=== PATIENT | male | born 1955 | race Caucasian/White ===

== ENCOUNTER 2022-10-17 07:28 | Outpatient (OUT) | payer MEDICARE, OTHER, SELFPAY ==
[2022-10-17 08:09] LABS: Basophils Percent Auto 0.3 % (0.2-2.0); Eosinophils Percent Auto 1.1 % (0.9-7.0); Hematocrit 36.6 % (42.0-54.0); Hemoglobin 12.5 g/dL (14.0-18.0); Immature Granulocytes Abs Auto 0.01 10^3/uL (0.00-0.03); Immature Granulocytes Pct Auto 0.3 % (0.0-0.5); Lymphocytes Percent Auto 26.6 % (20.5-60.0); Mean Corpuscular HGB Conc 34.2 g/dL (29.9-35.2); Mean Corpuscular Hemoglobin 31.6 pg (25.9-34.0); Mean Corpuscular Volume 92.4 fL (80.0-94.0); Mean Platelet Volume 10.7 fL (9.5-13.5); Monocytes Absolute Auto 0.2 10^3/uL (0.3-0.8); Monocytes Percent Auto 6.6 % (1.7-12.0); Neutrophils Absolute Auto 2.4 10^3/uL (1.4-6.5); Neutrophils Percent Auto 65.1 % (43.0-75.0); Nucleated Red Blood Cells 0; Platelet Count 126 10^3/uL (150-450); Red Blood Count 3.96 10^6/uL (4.70-6.10); Red Cell Distribution Width 13.2 % (11.0-15.0); White Blood Count 3.6 10^3/uL (4.0-11.0)
[2022-10-17 09:09] LABS: Erythrocyte Sedimentation Rate 10 mm/hr (<=20)
[2022-10-17 09:42] LABS: Alanine Aminotransferase 22 U/L (16-63); Albumin Globulin Ratio 1.2; Albumin Level 3.8 g/dL (3.4-5.0); Alkaline Phosphatase 39 U/L (46-116); Anion Gap 11.6; Aspartate Amino Transferase 18 U/L (15-37); BUN Creatinine Ratio 19.3; Bilirubin Total 0.7 mg/dL (0.2-1.0); Calcium 8.8 mg/dL (8.5-10.1); Carbon Dioxide 29.6 mmol/L (21.0-32.0); Chloride 100 mmol/L (98-107); Estimated GFR (African America >60 (>=60); Estimated GFR (Non-African Ame >60 (>=60); Globulin 3.3 g/dL; Glucose 134 mg/dL (74-106); Potassium 4.2 mmol/L (3.5-5.1); Sodium 137 mmol/L (136-145); Total Protein 7.1 g/dL (6.4-8.2)
== END 2022-10-17 07:29 ==
LOC: LAB 07:33
PROVIDERS: PCP Family Medicine; Visit Provider Internal Medicine Rheumatology
DX: M19.90 Unspecified osteoarthritis, unspecified site (principal); Z79.899 Other long term (current) drug therapy; M06.9 Rheumatoid arthritis, unspecified
CPT/HCPCS: 36415; 80053; 85025; 85652

== ENCOUNTER 2022-10-28 07:23 | Outpatient (OUT) | payer MEDICARE, OTHER, SELFPAY ==
[2022-10-29 04:07] LABS: Testosterone 377 ng/dL (264-916)
== END 2022-10-28 07:24 ==
LOC: LAB 07:26
PROVIDERS: PCP Family Medicine; Visit Provider Urology
DX: E29.1 Testicular hypofunction (principal)
CPT/HCPCS: 36415; 84403

== ENCOUNTER 2023-04-27 07:12 | Outpatient (OUT) | payer MEDICARE, OTHER, SELFPAY ==
[2023-04-28 09:11] LABS: Testosterone 330 ng/dL (264-916)
== END 2023-04-27 07:13 | disposition home or self-care (01) ==
LOC: LAB 07:15
PROVIDERS: PCP Family Medicine; Visit Provider Urology
DX: N40.1 Benign prostatic hyperplasia with lower urinary tract symptoms (principal); E29.1 Testicular hypofunction; N52.9 Male erectile dysfunction, unspecified; R81 Glycosuria; M06.9 Rheumatoid arthritis, unspecified; M19.90 Unspecified osteoarthritis, unspecified site
CPT/HCPCS: 36415; 84403

== ENCOUNTER 2023-06-19 07:02 | Outpatient (OUT) | payer MEDICARE, OTHER, SELFPAY ==
--- OUTSIDE RECORDS SUMMARY | 2023-06-19 07:07 | XMS_ITS | CCD ---
Author Name Unknown Address [address] [place] [address] Organization [facility] Care Team Providers Care Stationary Engineer Name Role Phone EILEEN PURVIS TENNILLE Unavailable Unavai JOSH Farrar Unavailable Unavailable Josh Ospina Unavailable Unavailable Unavailable Unavailable Unavailable Baljinder, Dr. Pattie Sanz Attending [facility] Unavailab le Baljinder, Dr. Pattie Sanz Referring Shantel vailable Josh Ospina Primary Care Unavailab clau Gale, Dr. Pattie Sanz Referring Shantel vailable Baljinder, Dr. Pattie Sanz Attending Shantel vailable Aryan Garcia Unavailable DO Josh Ospina Primary Care Provider [phone] MD Aryan Garcia Attending Provider DR JAYSON MOHAN Attending Unavailable FURLOGREGG, DR JOSH Sanchez Primary Care Unavailable FURLONG, DR JOSH Sanchez Consulting Unavailable DR JAYSON MOHAN Admitting Unavailable DR JAYSON MOHAN Consulting Unavailable FURLONG, DR JOSH Sanchez Primary Care Unavailable FURLONG, DR JOSH Sanchez Consulting Unavailable FURLONG, DR JOSH Sanchez Attending Unavailable FURLONG, DR JOSH Sanchez Admitting Unavailable FURLONG, DR JOSH Sanchez Primary Care Unavailable FURLONG, DR JOSH Sanchez Consulting Unavailable FURLONG, DR JOSH Sanchez Attending Unavailable FURLONG, DR JOSH Sanchez Admitting Unavailable FURLONG, DR JOSH Sanchez Primary Care Unavailable MISC, DR GIVENS Consulting Unavailable MISC, DR GIVENS Attending Unavailable MISC, DR GIVENS Admitting Unavailable BAILEY, DR PRASAD Attending Unavailable BAILEY, DR PRASAD Admitting Unavailable ZIEBER, DR EILEEN Rizo Consulting Unavailable FURLONG, DR JOSH Sanchez Primary Care Unavailable BAILEY, DR PRASAD Consulting Unavailable FURLONG, DR JOSH Sanchez Admitting Unavailable FURLONG, DR JOSH Sanchez Primary Care Unavailable FURLONG, DR JOSH Sanchez Attending Unavailable BAILEY, DR PRASAD Attending Unavailable BAILEY, DR PRASAD Admitting Unavailable FURLONG, DR JOSH Sanchez Primary Care Unavailable FURLONG, DR JOSH Sanchez Consulting Unavailable BAILEY, DR PRASAD Consulting Unavailable FURLONG, DR JOSH Sanchez Primary Care Unavailable MOHAN, DR CARUSO Consulting Unavailable MOHAN, DR CARUSO Attending Unavailable MOHAN, DR CARUSO Admitting Unavailable BAILEY, DR PRASAD Consulting Unavailable MOHAN, Jayson Rizo Attending Unavailable MOHAN, Jayson Rizo Attending Unavailable MOHAN, Jayson Rizo Attending Unavailable Gale, Dr. Pattie Sanz Attending Shantel vailable Furlong, Dr. Josh Aguilera Primary Care Unava ilable Bailey, Shanice Admitting Unavailable Bailey, Shanice Attending Unavailable Furlong, Josh Primary Care Unavailable Aryan Garcia Attending Unavailable Furlong, Josh Primary Care Unavailable Aryan Garcia Admitting Unavailable Furlong Josh GONGORA Primary Care Provider Allergies Allergy Classification Reported Allergen(s) Allergy Type Date of Onset Reaction(s) Facility (6 sources) Ticagrelor; Translations: [Brilinta TABS] Drug Allergy 4 [facility] (1 source) Bee/Wasp/Ant venom; Translations: [Bee Stings] Propensity to adverse reactions (disorder) [facility] (1 source) No Known Medication Allergies; Translations: [No Known Medication Allergies] Propensity to adverse reactions (disorder) [facility] Medications Current Medications Medication Drug Class(es) Dates Sig (Normalized) Sig (Original) aspirin 81 mg delayed release oral tablet (9 sources) Platelet Aggregation Inhibitor, Nonsteroidal Anti-inflammatory Drug Start: 04-08-2019 End: 06-18-2023 take 1 tablet by mouth once daily Aspirin (Aspir-81) 81 mg Tablet,Delayed Release (Dr/Ec) Active 1 TAB PO Daily April 08, 2019 12:00am Start: 04-08-2019 End: 04-08-2019 take 325 mg by mouth once daily Aspirin Discontinued 325 MG PO Daily April 08, 2019 12:00am April 08, 2019 11:19am Aspirin Active clopidogrel 75 mg oral tablet (8 sources) P2Y12 Platelet Inhibitor Start: 04-08-2019 take 1 tablet by mouth once daily clopidogrel (Plavix) 75 mg tablet Take 1 tablet (75 mg) by mouth once daily. 0 10/17/2019 Active Clopidogrel Bisu lfate Active empagliflozin 10 mg oral tablet (6 sources) Sodium-Glucose Cotransporter 2 Inhibitor Start: 06-15-2020 End: 06-18-2023 take 1 tablet by mouth once daily empagliflozin (Jardiance) 10 mg Take 1 tablet (10 mg) by mouth once daily. 0 06/15/2020 06/18/2023 Discontinued (Therapy completed) gabapentin 300 mg oral capsule (8 sources) Anti-epileptic Agent Start: 04-08-2019 take 1 capsule by mouth once daily at bedtime gabapentin (Neurontin) 300 mg capsule Take 1 capsule (300 mg) by mouth once daily at bedtime. 0 05/27/2020 Active Gabapentin Activ e hydroxychloroquine sulfate 200 mg oral tablet (7 sources) Antimalarial, Antirheumatic Agent Start: 04-08-2019 take 1 tablet by mouth twice daily hydroxychloroquine (Plaquenil) 200 mg tablet Take 1 tablet (200 mg) by mouth 2 times a day. 0 10/03/2019 Active metFORMIN hydrochloride 500 mg oral tablet (8 sources) Biguanide Start: 03-13-2020 take 2 tablets by mouth twice daily metFORMIN (Glucophage) 500 mg tablet Take 2 tablets (1,000 mg) by mouth 2 times a day. 0 03/13/2020 Active Start: 04-08-2019 take 500 mg by mouth twice naldo ly Metformin Active 500 MG PO Twice daily April 08, 2019 12:00am Metformin Active ramipril 10 mg oral capsule (8 sources) Angiotensin Converting Enzyme Inhibitor Start: 04-08-2019 take 1 capsule by mouth once daily ramipril (Altace) 10 mg capsule Take 1 capsule (10 mg) by mouth once daily. 0 08/11/2019 Active Ramipril Active rosuvastatin calcium 10 mg oral tablet (9 sources) HMG-CoA Reductase Inhibitor Start: 04-08-2019 take 1 tablet by mouth once daily at bedtime rosuvastatin (Crestor) 10 mg tablet Take 1 tablet (10 mg) by mouth once daily at bedtime. 0 10/19/2019 Active Rosuvastatin Sabino cium Active Crestor Not-Taki ng sildenafil 20 mg oral tablet (6 sources) Phosphodiesterase 5 Inhibitor End: 06-18-2023 sildenafil (Revatio) 20 mg tablet Take 1 tablet (20 mg) by mouth if needed. 0 06/18/2023 Discontinued (Therapy completed) Sildenafil Citra te TABS as needed Quantity: 0 Refills: 0 Ordered: 23-Apr-2021 DO Active SITagliptin 100 mg oral tablet (8 sources) Dipeptidyl Peptidase 4 Inhibitor Start: 04-08-2019 take 1 tablet by mouth once daily SITagliptin phosphate (Januvia) 100 mg tablet Take 1 tablet (100 mg) by mouth once daily. 0 03/26/2020 Active Januvia Active tadalafil 5 mg oral tablet (2 sources) Phosphodiesterase 5 Inhibitor Start: 04-08-2019 take 1 tablet by mouth once daily Tadalafil (Cialis) 5 mg Tablet Active 5 MG PO Daily April 08, 2019 12:00am Cialis Not-Takin g tamsulosin hydrochloride 0.4 mg oral capsule (6 sources) alpha-Adrenergic Fani Start: 07-10-2020 take 1 capsule by mouth once daily tamsulosin (Flomax) 0.4 mg 24 hr capsule Take 1 capsule (0.4 mg) by mouth once daily. 0 07/10/2020 Active 60 actuat testosterone 20.25 mg/actuat topical gel (8 sources) Androgen Start: 08-17-2020 testosterone 20.25 mg/1.25 gram (1.62 %) gel in metered-dose pump Place on the skin. 0 08/17/2020 Active Start: 08-17-2020 Testosterone 2 0.25 MG/ACT (1.62%) Transdermal Gel Quantity: 75 Refills: 0 Ordered: 17-Aug-2020 DO Start : 17-Aug-2020 Active Start: 04-08-2019 End: 04-08-2019 Testosterone Cypionate (Depo -Testosterone) 100 mg/mL Oil Discontinued 100 MG IM EVERY 4 WEEKS April 08, 2019 12:00am April 08, 2019 11:20am Testosterone Act fide verapamil hydrochloride 240 mg extended release oral tablet (8 sources) Calcium Channel Fani Start: 04-08-2019 End: 06-18-2023 take 1 tablet by mouth once daily verapamil SR (Calan-SR) 240 mg ER tablet Take 1 tablet (240 mg) by mouth once daily. 0 11/10/2019 06/18/2023 Discontinued (Therapy completed) Verapamil HCl Ac tive Completed/Discontinued Medications Medication Drug Class(es) Dates Sig (Normalized) Sig (Original) glimepiride 2 mg oral tablet (2 sources) Sulfonylurea Start: 04-08-2019 End: 04-08-2019 take 2 mg by mouth once daily in the morning Glimepiride Discontinued 2 MG PO Every morning April 08, 2019 12:00am April 08, 2019 11:19am Glimepiride Acti ve Suprep Bowel Prep . (1 source) Start: 03-29-2014 Suprep Bowel P rep . as directed Orally as directed for 1 dose(s) Mar, Not-Taking 24 hr trandolapril 4 mg / verapamil hydrochloride 240 mg extended release oral tablet (2 sources) Angiotensin Converting Enzyme Inhibitor, Calcium Channel Fani Start: 04-08-2019 End: 04-08-2019 take 1 tablet by mouth once daily Trandolapril-Verap malou (Tarka) 4-240 mg Tablet, Ir - Er, Biphasic 24hr Discontinued 1 TAB PO Daily April 08, 2019 12:00am April 08, 2019 11:20am Tarka Not-Taking Problems Active Problems Problem Classification Problem Date Documented Date Episodic/Chronic Coronary atherosclerosis and other heart disease (7 sources) Arteriosclerotic vascular disease; Translations: [Cardiovascular disease, unspecified] Onset: 05-26-2023 06-18-2023 Chronic Diabetes mellitus with complications (1 source) Type 2 diabetes mellitus with diabetic neuropathy, unspecified; Translations: [TYPE 2 DM W/DIABETIC NEUROPATHY UNS] Onset: 01-12-2022 Chronic Diabetes mellitus without complication (7 sources) Diabetes mellitus; Translations: [Diabetes mellitus without mention of complication, type II or unspecified type, not stated as uncontrolled] Onset: 05-26-2023 06-18-2023 Chronic Disorders of lipid metabolism (8 sources) Hyperlipidemia; Translations: [Other and unspecified hyperlipidemia] Onset: 07-16-2021 4 Chronic Essential hypertension (10 sources) Essential hypertension; Translations: [Unspecified essential hypertension] Onset: 07-16-2021 Chronic Hyperplasia of prostate (5 sources) Benign prostatic hyperplasia with lower urinary tract symptoms; Translations: [BENIGN PROSTATIC HYPERPLASIA W/LUTS] Onset: 10-29-2021 Chronic Osteoarthritis (1 source) Primary generalized (osteo)arthritis; Translations: [PRIMARY GENERALIZED OSTEOARTHRITIS] Onset: 07-16-2021 Chronic Other and unspecified benign neoplasm (1 source) Tubular adenoma of colon; Translations: [Tubular adenoma of colon] Episodic Other circulatory disease (2 sources) Femoral bruit; Translations: [Other symptoms involving cardiovascular system] Onset: 05-26-2023 05-26-2023 Episodic Other endocrine disorders (5 sources) Testicular hypofunction; Translations: [TESTICULAR HYPOFUNCTION] Onset: 10-26-2021 Chronic Other male genital disorders (1 source) Male erectile dysfunction, unspecified; Translations: [MALE ERECTILE DYSFUNCTION UNS] Onset: 10-29-2021 Chronic Other nutritional; endocrine; and metabolic disorders (5 sources) Overweight in adulthood with body mass index of 25 or more but less than 30; Translations: [Overweight] Episodic Other nutritional; endocrine; and metabolic disorders (1 source) Body mass index (BMI) 29.0-29.9, adult Episodic Other nutritional; endocrine; and metabolic disorders (1 source) Overweight; Translations: [Overweight] 06-18-2023 Episodic Peripheral and visceral atherosclerosis (10 sources) Intermittent claudication; Translations: [Peripheral vascular disease, unspecified] Onset: 05-26-2023 06-18-2023 Chronic Comment on above: Status post SFA clinton oplasty 2008; Residual codes; unclassified (6 sources) Sleep apnea; Translations: [Unspecified sleep apnea] Onset: 05-26-2023 05-26-2023 Chronic Residual codes; unclassified (2 sources) Obstructive sleep apnea syndrome; Translations: [Obstructive sleep apnea (adult) (pediatric)] Chronic Residual codes; unclassified (1 source) Obstructive sleep apnea (adult) (pediatric) Chronic Residual codes; unclassified (1 source) Obstructive sleep apnea (adult)(pediatric); Translations: [Obstructive sleep apnea (adult) (pediatric)] Onset: 03-27-2022 Chronic Residual codes; unclassified (1 source) Family history of colorectal cancer; Translations: [Family hx of colorectal cancer] Episodic Rheumatoid arthritis and related disease (5 sources) Rheumatoid arthritis 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; Translations: [Rheumatoid arthritis, unspecified] Onset: 07-13-2021 Chronic Screening and history of mental health and substance abuse codes (7 sources) Ex-smoker; Translations: [Personal history of tobacco use] Onset: 06-18-2023 06-18-2023 Episodic Past or Other Problems Problem Classification Problem Date Documented Da te Episodic/Chronic Other aftercare (1 source) 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; Translations: [OTH SUTURE GAUGER CURRENT DRUG THERAPY] Onset: 07-16-2021 Episodic Other circulatory disease (2 sources) History of claudication; Translations: [Personal history of unspecified circulatory disease] Resolved: 02-04-2022 Episodic Other connective tissue disease (1 source) Impingement syndrome of right shoulder; Translations: [Impingement syndrome of right shoulder] Onset: 07-06-2017 Episodic Other non-traumatic joint disorders (4 sources) Pain in right knee; Translations: [PAIN IN RIGHT KNEE] Onset: 07-24-2021 Episodic Other screening for suspected conditions (not mental disorders or infectious disease) (5 sources) History of adenomatous polyp of colon; Translations: [Encounter for screening for malignant neoplasm of colon] Onset: 01-10-2022 04-08-2019 Episodic Unclassified (1 source) Onset: 06-18-2023 06-18-2023 Results Test Name Value Interpretation Reference Range Facility Complete Blood Count Auto Di ffon 03-17-2023 Basophils (Bld) [#/Vol] 0.0 10*3/uL Normal 0.0-0.[address] [facility] Comment on above: Performed By: #### C MP, ESR, CBC #### [facility] [address] Basophils/100 WBC (Bld) 0.3 % Normal . [facility] Comment on above: Performed By: #### C MP, ESR, CBC #### [facility] [address] Eosinophils (Bld) [#/Vol] 0.1 10*3/uL Normal 0.0-0.[address] [facility] Comment on above: Performed By: #### C MP, ESR, CBC #### [facility] [address] [place] [address] [place] Eosinophils/100 WBC (Bld) 1.2 % Normal . [facility] Comment on above: Performed By: #### C MP, ESR, CBC #### [facility] [address] Erythrocyte distribution width (RBC) [Ratio] 14.1 % Normal 12.0-14.[address] [facility] Comment on above: Performed By: #### C MP, ESR, CBC #### [address] Hematocrit (Bld) [Volume fraction] 38.4 % Low 38.8-50.[address] [facility] Comment on above: Performed By: #### C MP, ESR, CBC #### [address] Hemoglobin (Bld) [Mass/Vol] 13.1 g/dL Normal 13.0-17.[address] [facility] Comment on above: Performed By: #### C MP, ESR, CBC #### [address] Lymphocytes (Bld) [#/Vol] 1.0 10*3/uL Normal 1.00-4.[address] [facility] Comment on above: Performed By: #### C MP, ESR, CBC #### [place] [address] [place] Lymphocytes/100 WBC (Bld) 22.5 % Normal . [facility] Comment on above: Performed By: #### C MP, ESR, CBC #### [address] MCH (RBC) [Entitic mass] 31.1 pg Normal 27.5-35.[address] [facility] Comment on above: Performed By: #### C MP, ESR, CBC #### [address] MCV (RBC) [Entitic vol] 91.2 fL Normal 83.5-[address] [facility] Comment on above: Performed By: #### C MP, ESR, CBC #### [facility] [address] Mean Corpuscular HGB Conc 34.1 g/dL Normal 32.5-35.[address] [facility] Comment on above: Performed By: #### C MP, ESR, CBC #### [facility] [address] Monocytes (Bld) [#/Vol] 0.3 10*3/uL Normal 0.0-0.[address] [facility] Comment on above: Performed By: #### C MP, ESR, CBC #### [address] Monocytes/100 WBC (Bld) 7.3 % Normal . [facility] Comment on above: Performed By: #### C MP, ESR, CBC #### [address] Neutrophils (Bld) [#/Vol] 3.1 10*3/uL Normal 1.8-7.[address] [facility] Comment on above: Performed By: #### C MP, ESR, CBC #### [address] Neutrophils/100 WBC (Bld) 68.7 % Normal . [facility] Comment on above: Performed By: #### C MP, ESR, CBC #### [address] NRBC% 0.0 /100{WBC} Normal 0-0.[address] [facility] Comment on above: Performed By: #### C MP, ESR, CBC #### [address] Platelet mean volume (Bld) [Entitic vol] 9.7 fL Normal 6.6-10.[address] [facility] Comment on above: Performed By: #### C MP, ESR, CBC #### [address] Platelets (Bld) [#/Vol] 144 10*3/uL Low 150-[address] [facility] Comment on above: Performed By: #### C MP, ESR, CBC #### [address] RBC (Bld) [#/Vol] 4.21 10*6/uL Normal 3.90-5.60 [facility] Comment on above: Performed By: #### C MP, ESR, CBC #### [address] WBC (Bld) [#/Vol] 4.5 10*3/uL Normal 4.1-10.5 [facility] Comment on above: Performed By: #### C MP, ESR, CBC #### [address] Comprehensive Metabolic Pane jerrell 03-17-2023 Albumin [Mass/Vol] 4.5 g/dL Normal 3.5-5.7 [facility] Comment on above: Performed By: #### C MP, ESR, CBC #### [address] Albumin/Globulin [Mass ratio] 2.0 {ratio} Normal [facility] Comment on above: Performed By: #### C MP, ESR, CBC #### [address] ALP [Catalytic activity/Vol] 43 U/L Normal 34-[address] [facility] Comment on above: Result Comment: PERF ORMED BY: [place] [address] PATHOLOGIST CLOCK AND WATCH ASSEMBLER BALDEMAR MCKINLEY M.D. Performed By: #### C MP, ESR, CBC #### [address] ALT [Catalytic activity/Vol] 14 U/L Normal 7-[address] [facility] Comment on above: Performed By: #### C MP, ESR, CBC #### [address] Anion gap [Moles/Vol] 10.2 mmol/L Normal 6.0-15.[address] [facility] Comment on above: Performed By: #### C MP, ESR, CBC #### [facility] [address] AST [Catalytic activity/Vol] 13 U/L Normal 13-[address] [facility] Comment on above: Performed By: #### C MP, ESR, CBC #### [facility] [address] Bilirubin [Mass/Vol] 0.6 mg/dL Normal 0.3-1.[address] [facility] Comment on above: Performed By: #### C MP, ESR, CBC #### [facility] [address] Calcium [Mass/Vol] 9.5 mg/dL Normal 8.6-10.3 [facility] Comment on above: Performed By: #### C MP, ESR, CBC #### [facility] [address] Chloride [Moles/Vol] 100 mmol/L Normal 98-[address] [facility] Comment on above: Performed By: #### C MP, ESR, CBC #### [facility] [address] CO2 [Moles/Vol] 30.5 mmol/L Normal 21.0-31.0 [facility] Comment on above: Performed By: #### C MP, ESR, CBC #### [facility] [address] Creatinine [Mass/Vol] 0.98 mg/dL Normal 0.70-1.[address] [facility] Comment on above: Performed By: #### C MP, ESR, CBC #### [facility] [address] [place] [address] [place] GFR/1.73 sq M.predicted MDRD (S/P/Bld) [Vol rate/Area] mL/min/{1.73_m2} Normal [facility] Comment on above: Performed By: #### C MP, ESR, CBC #### [facility] [address] [place] [address] [place] Globulin (S) [Mass/Vol] 2.3 g/dL Normal [facility] Comment on above: Performed By: #### C MP, ESR, CBC #### [facility] [address] Glucose [Mass/Vol] 177 mg/dL High 70-100 [facility] Comment on above: Result Comment: [place] Glucose Reference Range is dependent on time and content of last meal. Glucose of more than 200 mg/dL in a nonstressed, ambulatory subject supports the diagnosis of Diabetes Mellitus. ADA recommended reference range Performed By: #### C MP, ESR, CBC #### [address] Potassium [Moles/Vol] 4.7 mmol/L Normal 3.5-5.[address] [facility] Comment on above: Performed By: #### C MP, ESR, CBC #### [facility] [address] Protein [Mass/Vol] 6.8 g/dL Normal 6.4-8.9 [facility] Comment on above: Performed By: #### C MP, ESR, CBC #### [address] Sodium [Moles/Vol] 136 mmol/L Normal 136-145 [facility] Comment on above: Performed By: #### C MP, ESR, CBC #### [facility] [address] Urea nitrogen [Mass/Vol] 16 mg/dL Normal 7-[address] [facility] Comment on above: Performed By: #### C MP, ESR, CBC #### [facility] [address] Erythrocyte Sedimentation Ra riya 03-17-2023 ESR (Bld) [Velocity] 15 mm/h Normal 0-[address] [facility] Comment on above: Result Comment: PERF ORMED BY: [place] [address] PATHOLOGIST CLOCK AND WATCH ASSEMBLER BALDEMAR MCKINLEY M.D. Performed By: #### C MP, ESR, CBC #### [facility] [address] VASC LAB Abdominal Aorta/Isela ac/IVC Ultraon 01-05-2023 VASC LAB Abdominal Aorta/Iliac/IVC Ultra [facility] [address] [place] [address], [address] [address] Vascular Lab Report Abdominal Aorta Iliac Ultrasound/IVC Ultrasound Patient Name: HERVE Emery FLORENTINO Reading Physician: [id number] Pattie Gale MD, [facility] Study Date: 01/05/2023 Referring PATTIE GALE Physician: MRN/PID: [id number] PCP: Josh Ospina MD Accession/Order#: [id number] CC Report to: Date of : 1955 Technologist: Deidre Jimenez RD, T Gender: M Technologist 2: Admission Status: Outpatient Location Performed: [facility] Diagnosis/ICD: W02-Juebozcly primary hypertension; R09.89-Bruit; I73.9-Peripheral vascular disease, unspecified Indication: ASCVD, Former Smoker, 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 Imaging AND Doppler Findings: AORTA AP Lateral PSV Proximal 1.49 cm 1.36 cm 101.0 cm/s Mid 1.55 cm 1.43 cm 97.0 cm/s Distal 1.57 cm 1.51 cm 72.0 cm/s RIGHT AP Lateral PSV FRANCISCO Proximal 1.08 cm 0.81 cm 147.00 cm/s LEFT AP Lateral PSV FRANCISCO Proximal 0.83 cm 0.96 cm 94.00 cm/s [id number] Pattie Gale MD, FAC Final Normal [facility] Lab Reportson 11-03-2022 Lab Reports [id number] [facility] [id number] CD:127 Normal [facility] Lab Reports [id number] D:127 Normal [facility] Patient Educationon 11-01-19 Patient Education Urology Hypogonadism, Male Male hypogonadism is a condition of having a level of testosterone that is lower than normal. Testosterone is a chemical, or hormone, that is made mainly in the testicles. In boys, testosterone is responsible for the development of male characteristics during puberty. These include: ? Making the penis bigger. ? Growing and building the muscles. ? Growing facial hair. ? Deepening the voice. In adult men, testosterone is responsible for maintaining: ? An interest in sex and the ability to have sex. ? Muscle mass. ? Sperm production. ? Red blood cell production. ? Bone strength. Testosterone also gives men energy and a sense of well-being. Testosterone normally decreases as men age and the testicles make less testosterone. Testosterone levels can vary from man to man. Not all men will have signs and symptoms of low testosterone. Weight, alcohol use, medicines, and certain medical conditions can affect a man's testosterone level. What are the causes? This condition is caused by: ? A natural decrease in testosterone that occurs as a man grows older. This is the main cause of this condition. ? Use of medicines, such as antidepressants, steroids, and opioids. ? Diseases and conditions that affect the testicles or the making of testosterone. These include: ? Injury or damage to the testicles from trauma, cancer, cancer treatment, or infection. ? Diabetes. ? Sleep apnea. ? Genetic conditions that men are born with. ? Disease of the pituitary gland. This gland is in the brain. It produces hormones. ? Obesity. ? Metabolic syndrome. This is a group of diseases that affect blood pressure, blood sugar, cholesterol, and belly fat. ? HIV or AIDS. ? Alcohol abuse. ? Kidney failure. ? Other long-term or chronic diseases. What are the signs or symptoms? Common symptoms of this condition include: ? Loss of interest in sex (low sex drive). ? Inability to have or maintain an erection (erectile dysfunction). ? Feeling tired (fatigue). ? Mood changes, like irritability or depression. ? Loss of muscle and body hair. ? Infertility. ? Large breasts. ? Weight gain (obesity). How is this diagnosed? Your health care provider can diagnose hypogonadism based on: ? Your signs and symptoms. ? A physical exam to check your testosterone levels. This includes blood tests. Testosterone levels can change throughout the day. Levels are highest in the morning. You may need to have repeat blood tests before getting a diagnosis of hypogonadism. Depending on your medical history and test results, your health care provider may also do other tests to find the cause of low testosterone. How is this treated? This condition is treated with testosterone replacement therapy. Testosterone can be given by: ? Injection or through pellets inserted under the skin. ? Gels or patches placed on the skin or in the mouth. Testosterone therapy is not for everyone. It has risks and side effects. Your health care provider will consider your medical history, your risk for prostate cancer, your age, and your symptoms before putting you on testosterone replacement therapy. Follow these instructions at home: ? Take jlce-zzv-shyqcbd and prescription medicines only as told by your health care provider. ? Eat foods that are high in fiber, such as beans, whole grains, and fresh fruits and vegetables. Limit foods that are high in fat and processed sugars, such as fried or sweet foods. ? If you drink alcohol: ? Limit how much you have to 0?2 drinks a day. ? Know how much alcohol is in your drink. In the [place] one drink equals one 12 oz bottle of beer (355 mL), one 5 oz glass of wine (148 mL), or one 1? oz glass of hard liquor (44 mL). ? Return to your normal activities as told by your health care provider. Ask your health care provider what activities are safe for you. ? Keep all follow-up visits. This is important. Contact a health care provider if: ? You have any of the signs or symptoms of low testosterone. ? You have any side effects from testosterone therapy. Summary ? Male hypogonadism is a condition of having a level of testosterone that is lower than normal. ? The natural drop in testosterone production that occurs with age is the most common cause of this condition. ? Low testosterone can also be caused by many diseases and conditions that affect the testicles and the making of testosterone. ? This condition is treated with testosterone replacement therapy. ? There are risks and side effects of testosterone therapy. Your health care provider will consider your age, medical history, symptoms, and risks for prostate cancer before putting you on testosterone therapy. This information is not intended to replace advice given to you by your health care provider. Make sure you discuss any questions you have with your health care provider. Document Revised: 01/03/2021 Document (more content not included)... Normal [facility] Urology Office/Clinic Noteon 10-31-2022 Urology Office/Clinic Note Chief Complaint 6m Testosterone HPI Staff 6m w/testosterone level due to Hypogonadism & Impotence. Additional DX: BPH & Glucosuria *Androgel 4 pumps QD, Tamsulosin 0.4mg QD & Sildenafil 100mg PRN T 10/28/22- 377 ([phone]) Androgel is helping with energy level. No urinary concerns at this time. Sildenafil working when he uses. History of Present Illness Tests reviewed: reviewed UA I have reviewed the previous health record information and history for this patient from Dr. Mohan. I have reviewed and verified the staff HPI to be accurate for this encounter. There have been no associated fever, chills, flank pain, or blood in the urine. Denies any urinary infections since last encounter. Review of Systems PHQ Score Initial Depression Screen Score: 0 ROS - Provider Constitutional: denies weight loss, denies hot flashes. Eyes: denies eye problems. Gastrointestinal: denies nausea, denies vomiting. Cardiovascular: denies chest pain or angina. Integumentary: no dryness Musculoskeletal: denies musculoskeletal symptoms. ENMT: denies otolaryngeal symptoms. Respiratory: no shortness of breath. Heme/Lymph: denies easy bleeding tendency, denies easy bruising tendency. Psychiatric: no confusion, no anxiety. Genitourinary: denies dysuria, denies hematuria, denies discharge, denies urinary frequency, denies urinary hesitancy, denies nocturia, denies incontinence, denies genital sores, denies decreased libido, and denies erectile dysfunction. Physical Exam Vitals & Measurements HR: 80(Peripheral) BP: 120/74 HT: 74 in HT: 188 cm WT: 98 kg WT: 215.6 lb BMI: 27.73 General Appearance: alert, no distress, well nourished, well developed male. Genitourinary: normal scrotum, normal testes, normal urethra, normal epididymis, normal vas deferens/spermatic cord. Flank Pain: none. Bladder: nonpalpable. Assessment/Plan 1. BPH with urinary obstruction (N40.1: Benign prostatic hyperplasia with lower urinary tract symptoms) S/p Evolve laser of prostate done 2009. Pt continues taking Tamsulosin 0.4mg bid. Pt denies any SEs and states he is doing well with no bothersome urinary sxs at this time. Current PSA 0.43 done 04/26/22, previous level 0.69 done 12/11/20. Call for refills when needed. All questions/concerns were discussed. Pt to call the office if he encounters any issues prior. Pt acknowledges understanding. 2. Hypogonadism male (E29.1: Testicular hypofunction) Pt continues with AndroGel 1.62% 4 pumps daily therapy. Most recent testosterone level 377 (264-916) done 10/28/22, previous level 229 done 04/26/22. Explained most recent testosterone level results to pt. Discussed that 4 pumps is the maximum dosage. Pt agrees to continue at this dosage. Pt to get testosterone checked in 6 months. Will follow up in 1 year with repeat levels. 3. Impotence (N52.9: Male erectile dysfunction, unspecified) Sildenafil 100mg PRN therapy. Reports medication is working but sometimes his erection lasts too long. Occasionally is unable to climax. 4. Glucosuria (R81: Glycosuria) >=1000 mg/dL per today's UA. Pt is Type II diabetic, takes Metformin and Jardiance. Other obstructive and reflux uropathy (N13.8: Other obstructive and reflux uropathy) Follow-up With When Contact Information JAMSHID VILLAVICENCIO, Jayson Rizo, URL In 1 year [facility] [address], [place] [address]- [phone] Additional Instructions: testosterone Patient Education Hypogonadism, Male I, Val Alston, personally scribed for Dr. Mohan on 10/31/2022 08:22:39. . Documentation recorded by the scribe, Val Alston, accurately reflects the services(s) I performed and decisions made by me. Authenticated by Dr. Mohan on 10/31/2022 08:24:28. Problem List/Past Medical History Ongoing Arthritis BPH with urinary obstruction CAD - Coronary artery disease Diabetes Diabetic neuropathy Former smoker Glucosuria Hypercholesterolemia Hypertension Hypogonadism male Impotence Low serum testosterone level Nocturia Obesity.. Weak urinary stream Historical Rotator cuff tear Procedure/Surgical History Arthroplasty of the hip (03/01/2018), Carpal tunnel release (10/01/2017), Carpal tunnel release (09/17/2017), Arthroscopy of shoulder (08/06/2017), left shoulder arthroscopy (05/04/2014), Cystoscope (09/04/2009), CORONARY ARTERY STENT INSERTION x2, Hernia repair, STENT INSERTION RIGHT LEG. Medications AndroGel Pump 20.25 mg/1.25 g (1.62%) transdermal gel, 4 pumps, Topical, qAM, 5 refills clopidogrel 75 mg Tab, 75 mg= 1 tab(s), Oral, Daily Crestor 10 mg Tab, 10 mg= 1 tab(s), Oral, Once a day (at bedtime) Flomax 0.4 mg Cap, 0.4 mg= 1 cap(s), Oral, BID, 3 refills gabapentin 300 mg Cap, 300 mg= 1 cap(s), Oral, Daily Januvia 100 mg Tab, 100 mg= 1 tab(s), Oral, Daily Jardiance 10 mg oral tablet metformin 500 mg Tab, 1000 mg= 2 tab(s), Oral, BID ramipril 10 mg Cap, 10 mg= 1 cap(s (more content not included)... [facility] Comment on above: Result Comment: Elec tronically Signed By: Jayson MOHAN MD\.br\Date and Time Signed: 10/31/22 08:24 EDT\.br\Electronically Co-Signed By: Val Alston.cachorro\Date and Time Co-Signed: 10/31/22 08:22 EDT Lab Report[facility] 09-19-2022 Lab Reports [id number] D:127 [facility] Pre-Certification Formon Pre-Certification Form [id number] D:127 [facility] Pre-Certification Formon Pre-Certification Form [id number] D:127 [facility] Ambulatory Visit Summaryon 1 07-03-2021 Ambulatory Visit Summary HERVE FLORENTINO :1955 Visit Date:05/02/2022 Ambulatory Visit Instructions Your Diagnosis BPH with urinary obstruction Hypogonadism male Impotence Glucosuria Tests Performed Urnls Dip Stick Auto w/o Microscopy POC [id number] Your Care Team Attending Physician - Jayson MOHAN MD Primary Care Physician - JOSH OSPINA DO This Is Your Medications List sildenafil (sildenafil 100 mg Tab) tamsulosin (Flomax 0.4 mg Cap) testosterone (AndroGel Pump 20.25 mg/1.25 g (1.62%) transdermal gel) Contact prescribing physician if questions or concerns aspirin (aspirin 81 mg Oral EC Tab) clopidogrel (clopidogrel 75 mg Tab) empagliflozin (Jardiance 10 mg oral tablet) gabapentin (gabapentin 300 mg Cap) hydroxychloroquine (hydroxychloroquine 200 mg Tab) metformin (metformin 500 mg Tab) ramipril (ramipril 10 mg Cap) rosuvastatin (Crestor 10 mg Tab) sitagliptin (Januvia 100 mg Tab) verapamil (verapamil 240 mg Cap-ER) Procedures Performed Arthroplasty of the hip (03/01/2018), Carpal tunnel release (10/01/2017), Carpal tunnel release (09/17/2017), Arthroscopy of shoulder (08/06/2017), left shoulder arthroscopy (05/04/2014), Cystoscope (09/04/2009), CORONARY ARTERY STENT INSERTION x2, Hernia repair, STENT INSERTION RIGHT LEG. Discharge Vitals Heart Rate (Peripheral) 67 Respiratory Rate 16 Blood Pressure 118/56 Height 188 cm Height 74 in Weight 100 kg Weight 220 lb BMI 28.29 What to do next Scheduled Follow-Up Appointments Thursday 8:00 AM EDT With: Jayson MOHAN MD Where: [facility] Lab Reportson 05-02-2022 Lab Reports [id number] D:127 Normal [facility] Patient Educationon 05-02-20 Patient Education Urology Benign Prostatic Hyperplasia Benign prostatic hyperplasia (BPH) is an enlarged prostate gland that is caused by the normal aging process and not by cancer. The prostate is a walnut-sized gland that is involved in the production of semen. It is located in front of the rectum and below the bladder. The bladder stores urine and the urethra is the tube that carries the urine out of the body. The prostate may get bigger as a man gets older. An enlarged prostate can press on the urethra. This can make it harder to pass urine. The build-up of urine in the bladder can cause infection. Back pressure and infection may progress to bladder damage and kidney (renal) failure. What are the causes? This condition is part of a normal aging process. However, not all men develop problems from this condition. If the prostate enlarges away from the urethra, urine flow will not be blocked. If it enlarges toward the urethra and compresses it, there will be problems passing urine. What increases the risk? This condition is more likely to develop in men over the age of 50 years. What are the signs or symptoms? Symptoms of this condition include: ? Getting up often during the night to urinate. ? Needing to urinate frequently during the day. ? Difficulty starting urine flow. ? Decrease in size and strength of your urine stream. ? Leaking (dribbling) after urinating. ? Inability to pass urine. This needs immediate treatment. ? Inability to completely empty your bladder. ? Pain when you pass urine. This is more common if there is also an infection. ? Urinary tract infection (UTI). How is this diagnosed? This condition is diagnosed based on your medical history, a physical exam, and your symptoms. Tests will also be done, such as: ? A post-void bladder scan. This measures any amount of urine that may remain in your bladder after you finish urinating. ? A digital rectal exam. In a rectal exam, your health care provider checks your prostate by putting a lubricated, gloved finger into your rectum to feel the back of your prostate gland. This exam detects the size of your gland and any abnormal lumps or growths. ? An exam of your urine (urinalysis). ? A prostate specific antigen (PSA) screening. This is a blood test used to screen for prostate cancer. ? An ultrasound. This test uses sound waves to electronically produce a picture of your prostate gland. Your health care provider may refer you to a specialist in kidney and prostate diseases (urologist). How is this treated? Once symptoms begin, your health care provider will monitor your condition (active surveillance or watchful waiting). Treatment for this condition will depend on the severity of your condition. Treatment may include: ? Observation and yearly exams. This may be the only treatment needed if your condition and symptoms are mild. ? Medicines to relieve your symptoms, including: ? Medicines to shrink the prostate. ? Medicines to relax the muscle of the prostate. ? Surgery in severe cases. Surgery may include: ? Prostatectomy. In this procedure, the prostate tissue is removed completely through an open incision or with a laparoscope or robotics. ? Transurethral resection of the prostate (TURP). In this procedure, a tool is inserted through the opening at the tip of the penis (urethra). It is used to cut away tissue of the inner core of the prostate. The pieces are removed through the same opening of the penis. This removes the blockage. ? Transurethral incision (TUIP). In this procedure, small cuts are made in the prostate. This lessens the prostate's pressure on the urethra. ? Transurethral microwave thermotherapy (TUMT). This procedure uses microwaves to create heat. The heat destroys and removes a small amount of prostate tissue. ? Transurethral needle ablation (TUNA). This procedure uses radio frequencies to destroy and remove a small amount of prostate tissue. ? Interstitial laser coagulation (ILC). This procedure uses a laser to destroy and remove a small amount of prostate tissue. ? Transurethral electrovaporization (TUVP). This procedure uses electrodes to destroy and remove a small amount of prostate tissue. ? Prostatic urethral lift. This procedure inserts an implant to push the lobes of the prostate away from the urethra. Follow these instructions at home: ? Take jixy-qph-lftdqgf and prescription medicines only as told by your health care provider. ? Monitor your symptoms for any changes. Contact your health care provider with any changes. ? Avoid drinking large amounts of liquid before going to bed or out in public. ? Avoid or reduce how much caffeine or alcohol you drink. ? Give yourself time when you urinate. ? Keep all follow-up visits as told by your health care provider. This is important. Contact a health care provider if: ? You have unexplained back pain. ? Your symptoms do not get better with treatment. ? You d (more content not included)... Normal [facility] Urology Office/Clinic Noteon 05-02-2022 Urology Office/Clinic Note Chief Complaint 6m Testosterone & PSA HPI Staff 6m w/Testosterone due to hypogonadism & Impotence. Additional DX: BPH Androgel 1.62% 2 pumps daily & Sildenafil 100mg PRN & Flomax 0.4mg QD therapy. Testosterone done 04/26/22- 229 ( [id number]) PSA done 04/26/22- 0.43 Denies pain/burning and blood in urine. Does have some leg pains at time. Occasionally gets up 1x/night. Occasional weak stream at night. No complaints with stream during the day. Would like to have more energy. Sildenafil does help, at times erection lasts too long. Occasionally can still not climax. Pt states in the past you had discussed giving him a medication that shrinks his prostate, he would like to talk about that. History of Present Illness Tests reviewed: reviewed UA, PSA, and testosterone. I have reviewed the previous health record information and history for this patient from Dr. Mohan. I have reviewed and verified the staff HPI to be accurate for this encounter. There have been no associated fever, chills, flank pain, or blood in the urine. Denies any urinary infections since last encounter. Review of Systems PHQ Score Initial Depression Screen Score: 0 ROS - Provider Constitutional: denies weight loss, denies hot flashes. Eyes: denies eye problems. Gastrointestinal: denies nausea, denies vomiting. Cardiovascular: denies chest pain or angina. Integumentary: no dryness Musculoskeletal: denies musculoskeletal symptoms. ENMT: denies otolaryngeal symptoms. Respiratory: no shortness of breath. Heme/Lymph: denies easy bleeding tendency, denies easy bruising tendency. Psychiatric: no confusion, no anxiety. Genitourinary: denies dysuria, denies hematuria, denies discharge, denies urinary frequency, denies urinary hesitancy, denies nocturia, denies incontinence, denies genital sores, denies decreased libido, and denies erectile dysfunction. Physical Exam Vitals & Measurements HR: 67(Peripheral) RR: 16 BP: 118/56 HT: 74 in HT: 188 cm WT: 100 kg WT: 220 lb BMI: 28.29 General Appearance: alert, no distress, well nourished, well developed male. Genitourinary: normal scrotum, normal testes, normal urethra, normal epididymis, normal vas deferens/spermatic cord. Flank Pain: none. Bladder: nonpalpable. Assessment/Plan 1. BPH with urinary obstruction (N40.1: Benign prostatic hyperplasia with lower urinary tract symptoms) S/p Evolve laser of prostate done 2009. Continues Tamsulosin 0.4mg daily. Current PSA 0.43 done 04/26/22. Previous level 0.69 done 12/11/20. Occasional weak stream during the night but complaints during the day. Intermittently gets up once to void during the night. Will increase Flomax BID, pt to take at night. New script sent to [facility]. Inquired about starting Finasteride, recommended trying Flomax BID prior to another medication. Reassess at next visit. Will continue to monitor PSA. Call for refills when needed. All questions/concerns were discussed. Pt. to call the office if heencounters any issues prior. Pt. acknowledges understanding. 2. Hypogonadism male (E29.1: Testicular hypofunction) Pt. continues with AndroGel 1.62% 2 pumps daily (AM) therapy. Most recent testosterone level 229 (264-916) done 04/26/22. Previous level 321 done 10/26/21. States he wishes he had more energy. Mentioned raising the dosage due to low testosterone levels. Pt. will increase to 4 pumps daily (2 on each shoulder) to see if that improves levels. New script sent to [facility]. Will follow up in 6 months with repeat levels. All questions/concerns were discussed. Pt. to call the office if heencounters any issues prior. Pt. acknowledges understanding. 3. Impotence (N52.9: Male erectile dysfunction, unspecified) Sildenafil 100mg PRN therapy. Reports medication is working but sometimes his erection lasts too long. Occasionally is unable to climax. 4. Glucosuria (R81: Glycosuria) >=1000 mg/dL per today's UA. Pt. is diabetic. Follow-up With When Contact Information JAMSHID VILLAVICENCIO, Jayson Rizo, URL [address] [place] [address]- Additional Instructions: 6 mos testosterone level Patient Education Benign Prostatic Hyperplasia I, Irma Leonardo, personally scribed for Dr. Mohan on 05/02/2022 08:46:57. . Documentation recorded by the scribe, Irma Leonardo, accurately reflects the services(s) I performed and decisions made by me. Authenticated by Dr. Mohan on 05/02/2022 08:54:53. Problem List/Past Medical History Ongoing Arthritis BPH with urinary obstruction CAD - Coronary artery disease Diabetes Diabetic neuropathy Former smoker Glucosuria Hypercholesterolemia Hypertension Hypogonadism male Impotence Low serum testosterone level Nocturia Obesity.. Weak urinary stream Historical Rotator cuff tear Procedure/Surgical History Arthroplasty of the hip (03/01/2018), Carpal tunnel release (10/01/2017), Carpal tunnel rele (more content not included)... Normal [facility] Comment on above: Result Comment: Elec tronically Signed By: Jayson MOHAN MD\.br\Date and Time Signed: 05/02/22 08:54 EST\.br\Electronically Co-Signed By: Irma Leonardo\.br\Date and Time Co-Signed: 05/02/22 08:47 EST TESTOSTERONE, TOTALon 2021 Testosterone [Mass/Vol] 229 ng/dL Critically low 264-916 [facility] Comment on above: Result Comment: Adul t male reference interval is based on a population of healthy nonobese males (BMI <30) between 19 and 39 years old. Leticia et.al. JCEM 2017,102;0725-6051. PMID: [id number]. Performed By: #### T ESTTOT ####[facility] [id number] [place] [id number] Carranza Office Visit (Cardiology)on 02-04-2022 Follow-up visit Diagnoses/Problems Assessed ASCVD (arteriosclerotic cardiovascular disease) (429.2,440.9) (I25.10) Peripheral vascular disease (443.9) (I73.9) Status post SFA angioplasty 2008 Hyperlipidemia (272.4) (E78.5) Essential hypertension (401.9) (I10) Diabetes mellitus (250.00) (E11.9) Former smoker (V15.82) (Z87.891) Overweight with body mass index (BMI) of 29 to 29.9 in adult (278.02,V85.25) (E66.3,Z68.29) Sleep apnea (780.57) (G47.30) Orders ASCVD (arteriosclerotic cardiovascular disease) Renew: Aspirin 81 MG Oral Tablet Delayed Release; TAKE 1 TABLET DAILY Overweight with body mass index (BMI) of 29 to 29.9 in adult Healthy Weight Tips; Status:Complete - Retrospective Authorization; Done: [id number] Some eating tips that can help you lose weight.; Status:Complete - Retrospective Authorization; Done: [id number] SocHx: Former smoker Tobacco Use Screening; Status:Complete; Done: [id number] Patient Instructions Please bring all medicines, vitamins, and herbal supplements with you when you come to the office. Prescriptions will not be filled unless you are compliant with your follow up appointments or have a follow up appointment scheduled as per instruction of your physician. Refills should be requested at the time of your visit. Follow up in 9 months Chief Complaint HERVE FLORENTINO is being seen for a 9 month follow-up of. Patient is in the office for follow-up for the problems noted below. He reports no events since he was last seen in April 2021. Lab data from December 2021 were reviewed with him and all his numbers fall in the normal range. His diabetes is well controlled, LDL is under excellent control. Patient has no symptoms of claudication. He reports no side effect of medications. He will be retiring soon. His weight is above target and is working on it. Examination was essentially normal. ASSESSMENT AND PLAN: 1. PCI of the RCA in 2004 and 2016. He is presently asymptomatic on dual antiplatelet therapy. No cardiac testing and no change in medication is needed 2. Sleep apnea, on CPAP machine. 3. History of peripheral artery disease, asymptomatic with previous TRANSLATOR DEAF the right SFA 2008, currently has no symptoms of claudication. 4. Hyperlipidemia, on statin therapy, under control. Lipid profile from December 2021 was reviewed with the patient 5. Overweight. Patient is planning on dropping his weight by another 15 pounds which is encouraging 6. Hypertension, presently under control. No side effect of medications 7. Diabetes, under control., A1c December 2021 was 6.0 Pattie Gale MD, [facility] Surgical History Problems History of Angioplasty History of Carpal tunnel surgery History of Complete colonoscopy History of Hip replacement History of Percutaneous transluminal coronary angioplasty History of Shoulder surgery History of Surgery History of Stent Indications Past Medical History Problems History of intermittent claudication (V12.50) (Z86.79) Resolved Date: 04 Feb 2022 Current Meds Medication NameInstruction Aspirin 81 MG Oral Tablet Delayed ReleaseTAKE 1 TABLET DAILY. Clopidogrel Bisulfate 75 MG Oral Tablettake 1 tablet by mouth once daily Gabapentin 300 MG Oral Capsuletake 1 capsule by mouth at bedtime Hydroxychloroquine Sulfate 200 MG Oral Tablettake 1 tablet by mouth twice a day Januvia 100 MG Oral Tablettake 1 tablet by mouth once daily Jardiance 10 MG Oral Tablettake 1 tablet by mouth once daily metFORMIN HCl - 500 MG Oral Tablettake 2 tablets by mouth twice a day with food Ramipril 10 MG Oral CapsuleTAKE 1 CAPSULE Daily Rosuvastatin Calcium 10 MG Oral Tablettake 1 tablet by mouth at bedtime Sildenafil Citrate TABSas needed Tamsulosin HCl - 0.4 MG Oral Capsuletake 1 capsule by mouth once daily Testosterone 20.25 MG/ACT (1.62%) Transdermal Gel Verapamil HCl ER 240 MG Oral Tablet Extended ReleaseTake 1 tablet daily Allergies Medication Brilinta TABS Chest Pain;; Recorded By: Kesha Pickard; 04/22/2021 2:22:50 PM Social History Problems Alcohol use (V49.89) (Z72.89) Caffeine use (V49.89) (Z78.9) 1-2 cups of coffee daily Former smoker (V15.82) (Z87.891) No illicit drug use Review of Systems Constitutional: not feeling tired. Cardiovascular: no intermittent leg claudication and as noted in HPI. Respiratory: no cough and no shortness of breath. Gastrointestinal: no change in bowel habits and no blood in stools. Integumentary: no skin rashes. Neurological: no seizures and no frequent falls. All other systems have been reviewed and are negative for complaint. Vitals Vital Signs Recorded: [id number] 08:27AM Heart Rate74, R Radial Gpreepir653, LUE, Sitting Vlgebratt80, LUE, Sitting Height6 ft 2 in [id number] lb 2 oz BMI Ncgpdgvprv70.03 kg/m2 BSA Calculated2.29 Tobacco Useb) No PHQ-2 #1. Over the last 2 weeks have you felt down, depressed or hopeless? (If yes, answer PHQ-9 below)No PHQ-2 #2. Over the last 2 weeks have you felt littl (more content not included)... Normal [facility] 01-13-2022 Lab Reports [id number]#1.00CD :127 Normal [facility] Lab Reports [id number] :127 Normal [facility] GLYCOHEMOGLOBIN A1Con 2021 ADA RECOMMENDATION SEE BELOW Normal [facility] Comment on above: Result Comment: ADA RECOMMENDED LIMIT 4.0 - 6.0 ADA THERAPEUTIC TARGET < 7.0 ACTION SUGGESTED > 7.0 Performed By: #### A 1C #### [facility] [address] [place] [address] Dr. Juan Alberto Carranza Glucose [Mass/Vol] 126 mg/dL Normal [facility] Comment on above: Performed By: #### A 1C #### [facility] [address] [place] [address] Dr. Juan Alberto Carranza HbA1c (Bld) [Mass fraction] 6.0 % Normal 4.5-6.2 [facility] Comment on above: Performed By: #### A 1C #### [facility] [address] [place] [address] Dr. Juan Alberto Carranza LIPID PROFILEon 01-10-2022 CHOL-HDL RATIO NORM SEE BELOW Normal [facility] Comment on above: Result Comment: 3.3 - 4.4 LOW RISK 4.4 - 7.1 AVERAGE RISK 7.1 - 11.0 MODERATE RISK >11.0 HIGH RISK Performed By: #### L IPID, CMP #### [facility] [address] [place] [address] Dr. Juan Alberto Carranza Cholesterol [Mass/Vol] 136 mg/dL Normal <=200 [facility] Comment on above: Performed By: #### L IPID, CMP #### [facility] [address] [address] [address] Juan Alberto Carranza Cholesterol in HDL [Mass/Vol] 62 mg/dL Critically high 40-60 [facility] Comment on above: Performed By: #### L IPID, CMP #### [facility] [address] [address] [address] Juan Alberto Carranza Cholesterol in LDL [Mass/Vol] 57.6 mg/dL Normal [facility] Comment on above: Performed By: #### L IPID, CMP #### [facility] [address] [address] [address] Juan Alberto Carranza Cholesterol.total/C holesterol in HDL [Mass ratio] 2.2 {ratio} Normal [facility] Comment on above: Performed By: #### L IPID, CMP #### [facility] [address] [place] [address] Dr. Juan Alberto Carranza HDL NORMAL > or = 60 mg/dl - LO W CARDIOVASCULAR RISK <40 mg/dl - HIGH CARDIOVASCULAR RISK Normal [facility] Comment on above: Performed By: #### L IPID, CMP #### [facility] [address] [address] [address] Juan Alberto Carranza LDL CALC NORMAL SEE BELOW Normal [facility] Comment on above: Result Comment: <100 mg/dl OPTIMAL 100 - 129 mg/dl NEAR OR ABOVE OPTIMAL 130 - 159 mg/dl BORDERLINE HIGH 160 - 189 mg/dl HIGH >190 mg/dl VERY HIGH Performed By: #### L IPID, CMP #### [facility] [address] [address] [address] Juan Alberto Carranza Triglyceride [Mass/Vol] 82 mg/dL Normal <=150 [facility] Comment on above: Performed By: #### L IPID, CMP #### [facility] [address] [address] [address] Juan Alberto Carranza VLDL CALC 16.4 mg/dL Normal [facility] Comment on above: Performed By: #### L IPID, CMP #### [facility] [address] [address] [address] Juan Alberto Carranza PROF 14(COMP METB)on 022 Albumin [Mass/Vol] 4.0 g/dL Normal 3.4-5.[address] [facility] Comment on above: Performed By: #### L IPID, CMP #### [facility] [address] [address] [address] Juan Alberto Carranza Albumin/Globulin [Mass ratio] 1.3 {ratio} Normal [facility] Comment on above: Performed By: #### L IPID, CMP #### [facility] [address] [address] [address] Juan Alberto Carranza ALP [Catalytic activity/Vol] 48 U/L Normal 46-116 [facility] Comment on above: Performed By: #### L IPID, CMP #### [facility] [address] [address] [address] Juan Alberto Carranza ALT [Catalytic activity/Vol] 28 U/L Normal 16-63 [facility] Comment on above: Performed By: #### L IPID, CMP #### [facility] [address] [address] [address] Juan Alberto Carranza Anion gap [Moles/Vol] 13.2 mmol/L Normal [facility] Comment on above: Performed By: #### L IPID, CMP #### [facility] [address] [address] [address] Juan Alberto Carranza AST [Catalytic activity/Vol] 13 U/L Critically low 15-37 [facility] Comment on above: Performed By: #### L IPID, CMP #### [facility] [address] [address] [address] Juan Alberto Carranza Bilirubin [Mass/Vol] 0.6 mg/dL Normal 0.2-1.0 [facility] Comment on above: Performed By: #### L IPID, CMP #### [facility] [address] [address] [address] Juan Alberto Carranza Calcium [Mass/Vol] 8.8 mg/dL Normal 8.5-10.1 [facility] Comment on above: Performed By: #### L IPID, CMP #### [facility] [address] [address] [address] Juan Alberto Carranza Chloride [Moles/Vol] 100 mmol/L Normal 98-107 [facility] Comment on above: Performed By: #### L IPID, CMP #### [facility] [address] [place] [address] Dr. Juan Alberto Carranza CO2 [Moles/Vol] 29.1 mmol/L Normal 21.0-32.0 [facility] Comment on above: Performed By: #### L IPID, CMP #### [facility] [address] [place] [address] Dr. Juan Alberto Carranza Creatinine [Mass/Vol] 0.89 mg/dL Normal 0.70-1.30 [facility] Comment on above: Performed By: #### L IPID, CMP #### [facility] [address] [place] [address] Dr. Juan Alberto Carranza EGFR-AF TRISTANIAN >60 Normal >=60 [facility] Comment on above: Performed By: #### L IPID, CMP #### [facility] [address] [place] [address] Dr. Juan Alberto Carranza EGFR-NON AF TRISTANIAN >60 Normal >=60 [facility] Comment on above: Performed By: #### L IPID, CMP #### [facility] [address] [place] [address] Dr. Juan Alberto Carranza Globulin (S) [Mass/Vol] 3.0 g/dL Normal [facility] Comment on above: Performed By: #### L IPID, CMP #### [facility] [address] [place] [address] Dr. Juan Alberto Carranza Glucose [Mass/Vol] 134 mg/dL Critically high 74-106 [facility] Comment on above: Performed By: #### L IPID, CMP #### [facility] [address] [place] [address] Dr. Juan Alberto Carranza Potassium [Moles/Vol] 4.3 mmol/L Normal 3.5-5.1 [facility] Comment on above: Performed By: #### L IPID, CMP #### [facility] [address] [address] [address] Juan Alberto Carranza Protein [Mass/Vol] 7.0 g/dL Normal 6.4-8.2 [facility] Comment on above: Performed By: #### L IPID, CMP #### [facility] [address] [address] [address] Juan Alberto Carranza Sodium [Moles/Vol] 138 mmol/L Normal 136-145 [facility] Comment on above: Performed By: #### L IPID, CMP #### [facility] [address] [address] [address] Juan Alberto Carranza Urea nitrogen [Mass/Vol] 17.0 mg/dL Normal 7.0-18.0 [facility] Comment on above: Performed By: #### L IPID, CMP #### [facility] [address] [address] [address] Juan Alberto Carranza Urea nitrogen/Creatinine [Mass ratio] 19.1 mg/mg Normal [facility] Comment on above: Performed By: #### L IPID, CMP #### [facility] [address] [address] [address] Juan Alberto Carranza TESTOSTERONE, TOTALon 2021 Testosterone [Mass/Vol] 321 ng/dL Normal 264-916 [facility] Comment on above: Result Comment: Adul t male reference interval is based on a population of healthy nonobese males (BMI <30) between 19 and 39 years old. Travison, et.al. JCEM 2017,102;8155-4848. PMID: [id number]. Performed By: #### T ESTTOT #### [facility] [address] [place] [address] Dr. Juan Alberto Carranza TESTOSTERONE, TOTALon 2021 Testosterone [Mass/Vol] 360 ng/dL Normal 264-916 [facility] Comment on above: Result Comment: Adul t male reference interval is based on a population of healthy nonobese males (BMI <30) between 19 and 39 years old. Travison, et.al. JCEM 2017,102;1923-1123. PMID: [id number]. Performed By: #### T ESTTOT ####[facility] [id number] [place], [place] [address]KcDr. Juan Alberto Carranza CBC AUTO DIFFon 07-13-2021 BASO # 0.0 103/ul Normal 0.0-0.1 [facility] Comment on above: Performed By: #### C BC #### [facility] [address] [address] [address] Juan Alberto Carranza Basophils/100 WBC (Bld) 0.5 % Normal 0.2-2.0 [facility] Comment on above: Performed By: #### C BC #### [facility] [address] [address] [address] Juan Alberto Carranza EO # 0.1 103/ul Normal 0.0-0.7 [facility] Comment on above: Performed By: #### C BC #### [facility] [address] [place] [address] Dr. Juan Alberto Carranza Eosinophils/100 WBC (Bld) 1.8 % Normal 0.9-7.0 [facility] Comment on above: Performed By: #### C BC #### [facility] [address] [address] [address] Juan Alberto Carranza Erythrocyte distribution width (RBC) [Ratio] 13.5 % Normal 11.0-15.0 [facility] Comment on above: Performed By: #### C BC #### [facility] [address] [address] [address] Juan Alberto Carranza Hematocrit (Bld) [Volume fraction] 40.4 % Critically low 42.0-54.0 [facility] Comment on above: Performed By: #### C BC #### [facility] [address] [address] [address] Juan Alberto Carranza Hemoglobin (Bld) [Mass/Vol] 13.9 g/dL Critically low 14.0-18.0 [facility] Comment on above: Performed By: #### C BC #### [facility] [address] [address] [address] Juan Alberto Carranza IG # 0.01 10e3/ul Normal 0.00-0.03 [facility] Comment on above: Performed By: #### C BC #### [facility] [address] [place] [address] Dr. Juan Alberto Carranza IG % 0.2 % Normal 0.0-0.5 [facility] Comment on above: Performed By: #### C BC #### [facility] [address] [place] [address] Dr. Juan Alberto Carranza LYMPH # 0.9 103/ul Critically low 1.2-3.8 [facility] Comment on above: Performed By: #### C BC #### [facility] [address] [place] [address] Dr. Juan Alberto Carranza Lymphocytes/100 WBC (Bld) 20.5 % Normal 20.5-60.0 [facility] Comment on above: Performed By: #### C BC #### [facility] [address] [place] [address] Dr. Juan Alberto Carranza MANUAL DIFF REQ NO Normal [facility] Comment on above: Performed By: #### C BC #### [facility] [address] [place] [address] Dr. Juan Alberto Carranza MCH (RBC) [Entitic mass] 32.3 pg Normal 25.9-34.0 [facility] Comment on above: Performed By: #### C BC #### [facility] [address] [place] [address] Dr. Juan Alberto Carranza MCHC (RBC) [Mass/Vol] 34.4 g/dL Normal 29.9-35.2 [facility] Comment on above: Performed By: #### C BC #### [facility] [address] [place] [address] Dr. Juan Alberto Carranza MCV (RBC) [Entitic vol] 93.7 fL Normal 80.0-94.0 [facility] Comment on above: Performed By: #### C BC #### [facility] [address] [place] [address] Dr. Juan Alberto Carranza MONO # 0.3 103/ul Normal 0.3-0.8 [facility] Comment on above: Performed By: #### C BC #### [facility] [address] [address] [address] Juan Alberto Carranza Monocytes/100 WBC (Bld) 7.0 % Normal 1.7-12.0 [facility] Comment on above: Performed By: #### C BC #### [facility] [address] [address] [address] Juan Alberto Carranza NEUT # 3.1 103/ul Normal 1.4-6.5 [facility] Comment on above: Performed By: #### C BC #### [facility] [address] [address] [address] Juan Alberto Carranza Neutrophils/100 WBC (Bld) 70.0 % Normal 43.0-75.0 [facility] Comment on above: Performed By: #### C BC #### [facility] [address] [place] [address] Dr. Juan Alberto Carranza Platelet mean volume (Bld) [Entitic vol] 11.3 fL Normal 9.5-13.5 [facility] Comment on above: Performed By: #### C BC #### [facility] [address] [address] [address] Juan Alberto Carranza PLT 141 103/ul Critically low 150-450 [facility] Comment on above: Performed By: #### C BC #### [facility] [address] [place] [address] Dr. Juan Alberto Carranza RBC 4.31 106/ul Critically low 4.70-6.10 [facility] Comment on above: Performed By: #### C BC #### [facility] [address] [address] [address] Juan Alberto Carranza WBC 4.4 103/ul Normal 4.0-11.0 [facility] Comment on above: Performed By: #### C BC #### [facility] [address] [place] [address] Dr. Juan Alberto Carranza LIPID PROFILEon 07-13-2021 CHOL-HDL RATIO NORM SEE BELOW Normal [facility] Comment on above: Result Comment: 3.3 - 4.4 LOW RISK 4.4 - 7.1 AVERAGE RISK 7.1 - 11.0 MODERATE RISK >11.0 HIGH RISK Performed By: #### L IPID #### [facility] [address] [address] [address] Juan Alberto Carranza Cholesterol [Mass/Vol] 139 mg/dL Normal <=200 [facility] Comment on above: Performed By: #### L IPID #### [facility] [address] [address] [address] Juan Alberto Carranza Cholesterol in HDL [Mass/Vol] 72 mg/dL Normal [facility] Comment on above: Performed By: #### L IPID #### [facility] [address] [address] [address] Juan Alberto Carranza Cholesterol in LDL [Mass/Vol] 62.4 mg/dL Normal [facility] Comment on above: Performed By: #### L IPID #### [facility] [address] [place] [address] Dr. Juan Alberto Carranza Cholesterol.total/C holesterol in HDL [Mass ratio] 1.9 {ratio} Normal [facility] Comment on above: Performed By: #### L IPID #### [facility] [address] [address] [address] Juan Alberto Carranza HDL NORMAL > or = 60 mg/dl - LO W CARDIOVASCULAR RISK <40 mg/dl - HIGH CARDIOVASCULAR RISK Normal [facility] Comment on above: Performed By: #### L IPID #### [facility] [address] [address] [address] Juan Alberto Carranza LDL CALC NORMAL SEE BELOW Normal [facility] Comment on above: Result Comment: <100 mg/dl OPTIMAL 100 - 129 mg/dl NEAR OR ABOVE OPTIMAL 130 - 159 mg/dl BORDERLINE HIGH 160 - 189 mg/dl HIGH >190 mg/dl VERY HIGH Performed By: #### L IPID #### [facility] [address] [address] [address] Juan Alberto Carranza Triglyceride [Mass/Vol] 23 mg/dL Normal <=150 [facility] Comment on above: Performed By: #### L IPID #### [facility] [address] [address] [address] Juan Alberto Carranza VLDL CALC 4.6 mg/dL Normal [facility] Comment on above: Performed By: #### L IPID #### [facility] [address] [place] [address] Dr. Juan Alberto Carranza PROF 14(COMP METB)on 022 Albumin [Mass/Vol] 4.0 g/dL Normal 3.5-5.[address] [facility] Comment on above: Performed By: #### C MP #### [facility] [address] [place] [address] Dr. Juan Alberto Carranza Albumin/Globulin [Mass ratio] 1.3 {ratio} Normal [facility] Comment on above: Performed By: #### C MP #### [facility] [address] [place] [address] Dr. Juan Alberto Carranza ALP [Catalytic activity/Vol] 60 U/L Normal 38-126 [facility] Comment on above: Performed By: #### C MP #### [facility] [address] [place] [address] Dr. Juan Alberto Carranza ALT [Catalytic activity/Vol] 22 U/L Normal 21-72 [facility] Comment on above: Performed By: #### C MP #### [facility] [address] [place] [address] Dr. Juan Alberto Carranza Anion gap [Moles/Vol] 9.4 mmol/L Normal [facility] Comment on above: Performed By: #### C MP #### [facility] [address] [place] [address] Dr. Juan Alberto Carranza AST [Catalytic activity/Vol] 12 U/L Critically low 17-59 [facility] Comment on above: Performed By: #### C MP #### [facility] [address] [place] [address] Dr. Juan Alberto Carranza Bilirubin [Mass/Vol] 0.6 mg/dL Normal 0.2-1.3 [facility] Comment on above: Performed By: #### C MP #### [facility] [address] [place] [address] Dr. Juan Alberto Carranza Calcium [Mass/Vol] 8.9 mg/dL Normal 8.4-10.2 [facility] Comment on above: Performed By: #### C MP #### [facility] [address] [address] [address] Juan Alberto Carranza Chloride [Moles/Vol] 103 mmol/L Normal 98-107 [facility] Comment on above: Performed By: #### C MP #### [facility] [address] [address] [address] Juan Alberto Carranza CO2 [Moles/Vol] 28.8 mmol/L Normal 22.0-30.0 [facility] Comment on above: Performed By: #### C MP #### [facility] [address] [place] [address] Dr. Juan Alberto Carranza Creatinine [Mass/Vol] 0.83 mg/dL Normal 0.66-1.25 [facility] Comment on above: Performed By: #### C MP #### [facility] [address] [place] [address] Dr. Juan Alberto Carranza EGFR-AF TRISTANIAN >60 Normal >=60 [facility] Comment on above: Performed By: #### C MP #### [facility] [address] [place] [address] Dr. Juan Alberto Carranza EGFR-NON AF TRISTANIAN >60 Normal >=60 [facility] Comment on above: Performed By: #### C MP #### [facility] [address] [place] [address] Dr. Juan Alberto Carranza Globulin (S) [Mass/Vol] 3.2 g/dL Normal [facility] Comment on above: Performed By: #### C MP #### [facility] [address] [place] [address] Dr. Juan Alberto Carranza Glucose [Mass/Vol] 135 mg/dL Critically high 74-106 [facility] Comment on above: Performed By: #### C MP #### [facility] [address] [place] [address] Dr. Juan Alberto Carranza Potassium [Moles/Vol] 5.2 mmol/L Critically high 3.4-5.0 [facility] Comment on above: Performed By: #### C MP #### [facility] [address] [place], [place] [address] Dr. Juan Alberto Carranza Protein [Mass/Vol] 7.2 g/dL Normal 6.1-8.[address] [facility] Comment on above: Performed By: #### C MP #### [facility] [address] [place], [place] [address] Dr. Juan Alberto Carranza Sodium [Moles/Vol] 136 mmol/L Critically low 137-145 [facility] Comment on above: Performed By: #### C MP #### [facility] [address] [place], [place] [address] Dr. Juan Alberto Carranza Urea nitrogen [Mass/Vol] 17.0 mg/dL Normal 9.0-20.0 [facility] Comment on above: Performed By: #### C MP #### [facility] [address] [place], [place] [address] Dr. Juan Alberto Carranza Urea nitrogen/Creatinine [Mass ratio] 20.5 mg/mg Normal [facility] Comment on above: Performed By: #### C MP #### [facility] [address] [place], [place] [address] Dr. Juan Alberto Carranza SED RATE [facility] 2021 SED RATE 2 mm/hr Normal <=20 [facility] Comment on above: Performed By: #### S EDR #### [facility] [address] [place], [place] [address] Dr. Juan Alberto Carranza Office Visit (Cardiology)on 04-23-2021 Follow-up visit Diagnoses/Problems Assessed ASCVD (arteriosclerotic cardiovascular disease) (429.2,440.9) (I25.10) Peripheral vascular disease (443.9) (I73.9) Status post SFA angioplasty 2008 Hyperlipidemia (272.4) (E78.5) Essential hypertension (401.9) (I10) Diabetes mellitus (250.00) (E11.9) Overweight with body mass index (BMI) of 29 to 29.9 in adult (278.02,V85.25) (E66.3,Z68.29) Sleep apnea (780.57) (G47.30) Orders ASCVD (arteriosclerotic cardiovascular disease) Renew: Aspirin 81 MG Oral Tablet Delayed Release; TAKE 1 TABLET DAILY Overweight with body mass index (BMI) of 29 to 29.9 in adult Healthy Weight Tips; Status:Complete - Retrospective Authorization; Done: [id number] SocHx: Former smoker Tobacco Use Screening; Status:Complete; Done: [id number] Patient Instructions By signing my name below, I, Paulette Hinojosa RN,Scribe Please bring all medicines, vitamins, and herbal supplements with you when you come to the office. Prescriptions will not be filled unless you are compliant with your follow up appointments or have a follow up appointment scheduled as per instruction of your physician. Refills should be requested at the time of your visit Follow up in [9 ] months Chief Complaint HERVE FLORENTINO is being seen for a 9 month follow-up of. Patient is in the office for follow-up for the problems noted below. He has not reported any symptoms of angina or claudications and has had no trouble with his medications. His weight is down 15 pounds from last visit. He maintains active lifestyle. His examination is only remarkable for overweight. He had blood work done over the summer at PCPs office which I requested copies of. He did not need medications refilled today. ASSESSMENT AND PLAN: 1. PCI of the RCA in 2004 and 2016. He is presently asymptomatic on dual antiplatelet therapy. No cardiac testing and no change in medication is needed 2. Sleep apnea, on CPAP machine. 3. History of peripheral artery disease, asymptomatic with previous TRANSLATOR DEAF the right SFA 2008 4. Hyperlipidemia, on statin therapy, under control. Lipid profile was requested from PCP 5. Overweight. Weight has dropped 15 pounds from last year which is encouraging 6. Hypertension, presently under control. 7. Diabetes, under control., Lab data from PCP were requested Pattie Gale MD, [facility] Current Meds Medication NameInstruction Aspirin 81 MG Oral Tablet Delayed ReleaseTAKE 1 TABLET DAILY. Clopidogrel Bisulfate 75 MG Oral Tablettake 1 tablet by mouth once daily Gabapentin 300 MG Oral Capsuletake 1 capsule by mouth at bedtime Hydroxychloroquine Sulfate 200 MG Oral Tablettake 1 tablet by mouth twice a day Januvia 100 MG Oral Tablettake 1 tablet by mouth once daily Jardiance 10 MG Oral Tablettake 1 tablet by mouth once daily metFORMIN HCl - 500 MG Oral Tablettake 2 tablets by mouth twice a day with food Ramipril 10 MG Oral Capsuletake 1 capsule by mouth once daily Rosuvastatin Calcium 10 MG Oral Tablettake 1 tablet by mouth at bedtime Sildenafil Citrate TABSas needed Tamsulosin HCl - 0.4 MG Oral Capsuletake 1 capsule by mouth once daily Testosterone 20.25 MG/ACT (1.62%) Transdermal Gel Verapamil HCl ER 240 MG Oral Tablet Extended Releasetake 1 tablet by mouth once daily Allergies Medication Brilinta TABS Chest Pain;; Recorded By: Kesha Pickard; 04/22/2021 2:22:50 PM Social History Problems Former smoker (V15.82) (Z87.891) Review of Systems Constitutional: not feeling tired. Cardiovascular: no intermittent leg claudication and as noted in HPI. Respiratory: no cough and no shortness of breath. Gastrointestinal: no change in bowel habits and no blood in stools. Integumentary: no skin rashes. Neurological: no seizures and no frequent falls. All other systems have been reviewed and are negative for complaint. Vitals Vital Signs Recorded: [id number] 03:40PM Heart Rate80, R Radial Tdarjcxo199, RUE, Sitting [id number], RUE, Sitting Height6 ft 2 in Ztogha745 lb 9.6 oz BMI Dhfurtwymq80.61 kg/m2 BSA Calculated2.31 Tobacco Useb) No Fall Screeninga) No falls within the last year Physical Exam Constitutional: alert and in no acute distress. Neck: neck is supple, symmetric, trachea midline, no masses and no thyromegaly . Pulmonary: no increased work of breathing or signs of respiratory distress and lungs clear to auscultation. Cardiovascular: carotid pulses 2+ bilaterally with no bruit , JVP was normal, no thrills , regular rhythm, normal S1 and S2, no murmurs , pedal pulses 2+ bilaterally and no edema . Abdomen: abdomen non-tender, no masses and no hepatomegaly . Skin: skin warm and dry, normal skin turgor . Psychiatric judgment and insight is normal and oriented to person, place and time . Signatures Electronically signed by : Pattie Gale MD; Apr 23 2021 4:16PM EST (Author) Normal [facility] MRI SHOULDER RIGHT WO CONTRA STon 07-06-2017 MRI SHOULDER RIGHT WO CONTRAST CLINICAL HISTORY: Right shoulder pain. Impingement syndrome of right shoulder (M75.41). Evaluate for rotator cuff tear.MRI RIGHT SHOULDER WITHOUT CONTRAST:TECHNIQUE: Sagittal PD, T2, coronal T1, PD, T2 fat-saturated, and axial images were obtained through the right shoulder.FINDINGS: Moderately severe AC joint osteoarthrosis is present, with small subchondral cysts and marginal osteophytes, which narrow the supraspinatus outlet. There is a type II acromion, with gently curved undersurface. A small fluid is present in the subacromial/subdeltoid bursa, consistent with mild bursitis.There is a 1.4 cm AP x 1.2 cm transverse high-grade partial-thickness bursal surface rotator cuff tear of the distal supraspinatus tendon, involving at least two-thirds of the tendon thickness, with surrounding severe supraspinatus tendinopathy, and moderate distal infraspinatus tendinopathy. There is a 1.2 cm craniocaudal x 0.7 cm transverse low-grade partial-thickness intrasubstance and possibly articular surface tear of the distal-most subscapularis tendon, with surrounding moderate tendinopathy. The teres minor tendon is intact. No muscular atrophy or edema.There is a partial-thickness tear and severe tendinopathy in the long head of the biceps tendon, in the intra-articular portion and the superior bicipital groove.Degenerative tear is noted in the superior labrum, extending from anterior to posterior to the biceps anchor.Mild glenohumeral joint osteoarthrosis is suspected, with mild osseous ridging inferiorly. A small glenohumeral joint effusion is present.IMPRESSION: 1. A 1.4 cm x 1.2 cm high-grade partial-thickness bursal surface rotator cuff tear of the distal supraspinatus tendon, involving at least two-thirds of the tendon thickness, with surrounding severe supraspinatus tendinopathy, and moderate distal infraspinatus tendinopathy.2. A 1.2 cm x 0.7 cm low-grade partial-thickness intrasubstance and possibly articular surface tear of the distal-most subscapularis tendon, with surrounding moderate tendinopathy.3. Partial-thickness tear and severe tendinopathy in the long head of the biceps tendon, in the intra-articular portion and the superior bicipital groove.4. Degenerative tear in the superior labrum, extending from anterior to posterior to the biceps anchor.5. Mild glenohumeral joint osteoarthrosis is suspected.6. Moderately severe AC joint osteoarthrosis, and mild subacromial/subdeltoid bursitis.Interpreted by:VENICE Maeigned by:Jair Olivia MD07/06/17inal result Normal [facility] Vital Signs Date Time Vital Sign Value Performing Clinician Facility 06-18-2023 08:39-0500 Body height 185.4 cm Pattie Gale MD Work Phone: [facility] 06-18-2023 08:39-0500 Body mass index (BMI) [Ratio] 29.82 kg/m2 Pattie Gale MD Work Phone: [facility] 06-18-2023 08:39-0500 Body weight 102.51 kg Pattie Gale MD Work Phone: [facility] 06-18-2023 08:39-0500 Diastolic blood pressure 76 mm[Hg] Pattie Gale MD Work Phone: [facility] 06-18-2023 08:39-0500 Heart rate 62 /min Pattie Gale MD Work Phone: [facility] 06-18-2023 08:39-0500 Systolic blood pressure 130 mm[Hg] Pattie Gale MD Work Phone: [facility] 03-27-2022 16:00-0500 Body height Aryan Garcia Other [facility] [employer] [facility] Other 03-27-2022 16:00-0500 Body mass index (BMI) [Ratio] 29.81 kg/m2 Aryan Garcia Other [facility] Other 03-27-2022 16:00-0500 Body temperature 96.9 [degF] Aryan Garcia Other [facility] Other 03-27-2022 16:00-0500 Body weight 102.51 kg Aryan Garcia Other [facility] Other 03-27-2022 16:00-0500 Diastolic blood pressure 70 mm[Hg] Aryan Garcia Other [facility] Other 03-27-2022 16:00-0500 SaO2% (BldA) [Mass fraction] 100 % Aryan Garcia Other [facility] Other 03-27-2022 16:00-0500 Systolic blood pressure 128 mm[Hg] Aryan Garcia Other [facility] Other Encounters Encounter Date Encounter Type Care Provider Facility Start: 11-02-2023 ambulatory Jayson MOHAN [facility] Start: 06-18-2023 End: 06-18-2023 Office outpatient visit 25 minutes Pattie Gale MD Work Phone: [facility] Comment on above: ASCVD (arteriosclero tic cardiovascular disease) (Primary Dx); Peripheral vascular disease ([facility]); Essential hypertension; Hyperlipidemia, unspecified hyperlipidemia type; Other specified diabetes mellitus without complication, without long-term current use of insulin ([facility]); Former smoker; Overweight Start: 03-17-2023 End: 03-17-2023 ambulatory Shanice Bailey Facility:[facility] Start: 01-05-[address] Pattie Gale Facility:[id number] Start: 10-31-2022 End: 11-01-2022 ambulatory Jayson MOHAN Facility:[facility] Start: 10-08-2022 Office outpatient vi sit 25 minutes Josh Ospina Work Phone: [facility] Work Phone: Start: 08-20-2022 Rx Renewal Josh escobedo Work Phone: [facility] DO Work Phone: Start: 05-02-2022 End: 05-03-2022 ambulatory Jayson MOHAN Facility: [facility] Start: 04-26-2022 End: 04-27-[address] JOSH OSPINA Facility:[facility] Start: 03-27-2022 End: 03-27-2022 Patient encounter procedure DO Josh Ospina Work Phone: [facility] Start: 03-27-2022 End: 03-27-2022 ambulatory DO Josh Ospina Work Phone: [facility] Work Phone: Start: 03-27-2022 Office outpatient vi sit 25 minutes Aryan [facility] Start: 02-04-[address] Pattie Gale Facility: Start: 01-10-2022 End: 01-11-[address] JOSH OSPINA Facility:[facility] Start: 12-03-2021 Rx Renewal Josh Sanchez Asim ng Work Phone: [facility] [address] DO Work Phone: Start: 11-26-2021 Rx Renewal Joshjose r Dailey ng Work Phone: [facility] [address] DO Work Phone: Start: 11-19-2021 Rx Renewal Josh Sanchez Lararinku ng Work Phone: [facility] DO Work Phone: Start: 10-26-2021 End: 10-27-[address] JOSH OSPINA Facility:[facility] Start: 07-24-2021 End: 07-25-[address] SHANICE BAILEY Facility:[facility] Start: 07-13-2021 End: 07-14-[address] SHANICE BAILEY Facility:[facility] Start: 06-04-[address] JOSH OSPINA Fac ility:[facility] Start: 04-23-2021 ambulatory Josh Brand acility: Start: 07-06-2017 End: 07-09-2017 Ambulatory [facility] Procedures Date Procedure Procedure Detail Performing Clinician Start: 04-26-[address] PINO MOHAN Comment on above: Performed By: #### P SAD #### [facility] [place] [facility] [address] [place] [address] Dr. Juan Alberto Carranza Start: 07-06-2017 Mri any jt upper ext remity w/o contrast matrl EILEEN PURVIS Start: 04-07-2014 Colonoscopy Pattie gonzalez MD Work Phone: Angioplasty of blood vessel Josh Ospina Work Phone: Decompression of med kristin nerve Josh Ospina Work Phone: Percutaneous translu giovani coronary angioplasty Josh Ospina Work Phone: Repair of shoulder Josh Bermudezlogregg Work Phone: Screening for malign ant neoplasm of colon Aryan [facility] Other Surgical procedure Josh Ospina Work Phone: Comment on above: History of Stent Ind ications; Total colonoscopy Josh thapa Work Phone: Total replacement of hip Yohan Ospina Work Phone: Plan of Treatment Date Care Activity Detail Author Start: 07-04-2024 DTaP/Tdap/Td Vaccines (2 - Td or Tdap) DTaP/Tdap/Td Vaccines (2 - Td or Tdap) [facility] Start: 05-04-2024 Urine screening for protein Diabetes: Urine Protein Screening [facility] Start: 04-07-2024 Screening for malignant neoplasm of colon [facility] Start: 03-22-2024 End: 03-22-2024 Patient encounter procedure 03/22/2024 8:40 AM EST Office Visit [facility] [address] [facility] [address] [place] [address] Pattie Gale MD [address] [facility] [address] [place] [address] [facility] Start: 06-18-2023 End: 06-18-2024 Alanine aminotransferase [Enzymatic activity/volume] in Serum or Plasma by With P-5'-P Alanine Aminotransferase Lab Routine ASCVD (arteriosclerotic cardiovascular disease) Peripheral vascular disease (CMS/HCC) Essential hypertension Hyperlipidemia, unspecified hyperlipidemia type Other specified diabetes mellitus without complication, without long-term current use of insulin (CMS/HCC) Expected: 06/18/2023 (Approximate), Expires: 06/18/2024 [facility] Work Phone: Comment on above: Expected: 06/18/2023 (Approximate), Expi res: 06/18/2024 Start: 06-18-2023 End: 06-18-2024 Aspartate aminotransferase [Enzymatic activity/volume] in Serum or Plasma by With P-5'-P Aspartate Aminotransferase Lab Routine ASCVD (arteriosclerotic cardiovascular disease) Peripheral vascular disease (CMS/HCC) Essential hypertension Hyperlipidemia, unspecified hyperlipidemia type Other specified diabetes mellitus without complication, without long-term current use of insulin (CMS/HCC) Expected: 06/18/2023 (Approximate), Expires: 06/18/2024 [facility] Work Phone: Comment on above: Expected: 06/18/2023 (Approximate), Expi res: 06/18/2024 Start: 06-18-2023 End: 06-18-2024 Basic metabolic 2000 panel - Serum or Plasma Basic Metabolic Panel Lab Routine ASCVD (arteriosclerotic cardiovascular disease) Peripheral vascular disease (CMS/HCC) Essential hypertension Hyperlipidemia, unspecified hyperlipidemia type Other specified diabetes mellitus without complication, without long-term current use of insulin (CMS/HCC) Expected: 06/18/2023 (Approximate), Expires: 06/18/2024 [facility] Work Phone: Comment on above: Expected: 06/18/2023 (Approximate), Expi res: 06/18/2024 Start: 06-18-2023 End: 06-18-2024 CBC panel - Blood by Automated count CBC Lab Routine ASCVD (arteriosclerotic cardiovascular disease) Peripheral vascular disease (CMS/HCC) Essential hypertension Hyperlipidemia, unspecified hyperlipidemia type Other specified diabetes mellitus without complication, without long-term current use of insulin (CMS/HCC) Expected: 06/18/2023 (Approximate), Expires: 06/18/2024 [facility] Work Phone: Comment on above: Expected: 06/18/2023 (Approximate), Expi res: 06/18/2024 Start: 06-18-2023 End: 06-18-2024 Lipid 1996 panel - Serum or Plasma Lipid Panel Lab Routine ASCVD (arteriosclerotic cardiovascular disease) Peripheral vascular disease ([facility]) Essential hypertension Hyperlipidemia, unspecified hyperlipidemia type Other specified diabetes mellitus without complication, without long-term current use of insulin ([facility]) Expected: 06/18/2023 (Approximate), Expires: 06/18/2024 [facility] Work Phone: Comment on above: Expected: 06/18/2023 (Approximate), Expi res: 06/18/2024 Start: 06-18-2023 FUV, Provider: Pattie Gale, Status: Pen, Time: 9:00 AM FUV, Provider: Pattie Gale, Status: Pen, Time: 9:00 AM [facility] Work Phone: Start: 01-16-2023 COVID-19 Vaccine ( season) COVID-19 Vaccine ( season) [facility] Start: 01-05-2023 AOILIVC, Provider: VAR[facility]ESE [facility] ULTRASOUND 01,[id number], Status: Pen, Time: 7:45 AM AOILIVC, Provider: VARGHESE [facility] ULTRASOUND 01,[id number], Status: Pen, Time: 7:45 AM [facility] Work Phone: Start: 10-08-2022 FUV, Provider: Pattie Gale, Status: Pen, Time: 8:40 AM FUV, Provider: Pattie Gale, Status: Pen, Time: 8:40 AM [facility] DO Work Phone: Start: 02-04-2022 FUV, Provider: Pattie Gale, Status: Pen, Time: 8:30 AM FUV, Provider: Pattie Gale, Status: Pen, Time: 8:30 AM [facility] [address] DO Work Phone: Start: 10-19-1973 Hepatitis C screening Hepatitis C Screening [facility] Start: 10-19-1965 Diabetic foot examination Diabetes: Foot Exam [facility] Start: 10-19-1965 Glaucoma screening Diabetes: Retinopathy Screening [facility] Start: 1955 Hemoglobin A1c measurement Diabetes: Hemoglobin A1C [facility] Start: 1955 Lipid panel Lipid Panel [facility] Start: 1955 Medicare Annual Wellness Visit Medicare Annual Wellness Visit (AWV) [facility] Start: 1955 Screening for malignant neoplasm of colon [facility] Immunizations Immunization Date Immunization Notes Care Provider Rahel rice 04-14-2022 Prevnar 20 0.5 ML Intramuscular Suspension Prefilled Syringe Josh Sanchez [employer] Work Phone: [facility] Work Phone: 02-18-2021 Pfizer-BioNTech COVI D-19 Vacc 30 MCG/0.3ML Intramuscular Suspension Josh Daileyng Work Phone: [facility] 08-08-2020 Pfizer-BioNTech COVI D-19 Vacc 30 MCG/0.3ML Intramuscular Suspension Josh Bermudezlong Work Phone: [facility] [address] DO Work Phone: 08-05-2020 Pfizer Purple Cap SARS-CoV-2 Pattie Gale MD Work Phone: [facility] Work Phone: 07-18-2020 Moderna COVID-19 Vac cine 100 MCG/0.5ML Intramuscular Suspension Jsoh Bermudezlong Work Phone: [facility] [address] DO Work Phone: 07-18-2020 Pfizer-BioNTech COVI D-19 Vacc 30 MCG/0.3ML Intramuscular Suspension Josh Bermudezlong Work Phone: [place] [address] DO Work Phone: 05-08-2020 pneumococcal polysaccharide vaccine, 23 valent Josh G FAD ? IOng Work Phone: [facility] 02-16-2020 influenza virus vacc ine, unspecified formulation Josh G Furlong Work Phone: [place] [address] DO Work Phone: 02-16-2020 influenza, injectabl e, quadrivalent, preservative free Pattie Gale MD Work Phone: [facility] Work Phone: 06-29-2019 zoster vaccine recombinant Josh G [place] Work Phone: [place] [address] DO Work Phone: 04-28-2019 zoster vaccine recombinant [facility]: [place] [address] DO Work Phone: 03-18-2019 influenza virus vacc ine, unspecified formulation Josh G [place] Work Phone: [place] [address] DO Work Phone: 03-02-2019 influenza, injectabl e, quadrivalent, contains preservative [facility] Work Phone: [place] [address] DO Work Phone: 04-13-2018 Influenza, injectabl e, Madin Myla Canine Kidney, preservative free, quadrivalent [facility] [place] [address] DO Work Phone: 03-18-2018 influenza virus vacc ine, unspecified formulation Josh G [place] Work Phone: [place] [address] DO Work Phone: 04-20-2017 influenza, injectabl e, quadrivalent, preservative free [facility]: [place] [address] DO Work Phone: 03-31-2017 influenza, injectabl e, quadrivalent, preservative free Josh Bermudezng Work Phone: [place] [address] DO Work Phone: 03-18-2017 influenza virus vacc ine, unspecified formulation Josh Sanchez [place] Work Phone: [place] [address] DO Work Phone: 02-16-2016 influenza virus vacc ine, unspecified formulation Josh Sanchez [place] Work Phone: [place] [address] DO Work Phone: 03-18-2015 influenza, seasonal, injectable Josh Sanchez [place] Work Phone: [place] [address] DO Work Phone: 02-15-2015 influenza virus vacc ine, unspecified formulation Josh Sanchez [place] Work Phone: [place] [address] DO Work Phone: 07-04-2014 pneumococcal conjuga te vaccine, 13 valent Josh Sanchez [place] Work Phone: [place] [address] DO Work Phone: 07-04-2014 tetanus toxoid, redu leonel diphtheria toxoid, and acellular pertussis vaccine, adsorbed Josh G [place] Work Phone: [place] [address] DO Work Phone: 02-22-2014 influenza virus vacc ine, whole virus Josh Sanchez [place] Work Phone: [place] [address] DO Work Phone: 07-18-2013 influenza virus vacc ine, unspecified formulation Josh Daileyng Work Phone: [facility] [address] DO Work Phone: 03-18-2009 influenza virus vacc ine, unspecified formulation Josh Ospina Work Phone: [facility] [address] DO Work Phone: influenza virus vacc ine, unspecified formulation Josh Daileyng Work Phone: [place] [address] DO Work Phone: Comment on above: 2011Mar [id number] Payers Date Payer Category Payer Medicare [id number] 2022 Self-pay [id number] 2020 Medicare [id number] 1959 Medicare [id number] 1959 Self-pay [id number] 1959 Unknown [id number] 1955 Unknown [id number]. [id number] 1955 Unknown [id number]. [id number] 1955 Unknown [id number] 2.16.84 0.1.882387.3.579.2.593 1955 Unknown [id number] 2.16.84 0.1.026882.3.579.2.593 1955 Unknown [id number] 2.16.84 0.1.545999.3.579.2.593 1955 Unknown [id number] 2.16.84 0.1.823324.3.579.2.593 1955 Unknown [id number] 2.16.84 0.1.801297.3.579.2.593 1955 Unknown [id number] 2.16.84 0.1.571815.3.579.2.593 1955 Unknown [id number] 2.16.84 0.1.748099.3.579.2.593 1955 Unknown [id number] 2.16.84 0.1.993175.3.579.2.593 1955 Unknown [id number] 2.16.8 40.1.230246.3.579.2.727 1955 Unknown [id number] 2.16.8 40.1.624782.3.579.2.727 1955 Unknown [id number] 2.16.8 40.1.834308.3.579.2.727 1955 Unknown [id number] 2.16.8 [id number] Unknown Unknown [id number] 2.16.8 [id number] Unknown [id number] 2.16.8 [id number] Social History Date Type Detail Facility Start: 05-26-2023 Alcohol use Alcohol use -[facility] [address] DO Work Phone: Comment on above: 1-2 cups of coffee d aily; Start: 05-26-2023 Sex Assigned At N [facility] [employer] Other Start: 04-08-2019 End: 05-26-2023 Tobacco smoking status ALIS Ex-smoker (finding) [facility] Start: 1955 Sex Assigned At Male F [facility] History of tobacco use Current smoker [facility] Work Phone: History of tobacco use Cigarette Smoker [facility] Work Phone: Start: 05-26-2023 Tobacco use and exposure Smokeless tobacco non-user [facility] Work Phone: Start: 06-18-2023 Alcohol intake Current drinke r of alcohol (finding) [facility] Work Phone: Start: 1955 Sex Assigned At Not on file U [facility] Work Phone: Start: 06-08-2023 End: 06-18-2023 Exposure to SARS-CoV-2 (event) Not sure [facility] History of Present illness Narrative 06-18-2023 Pattie Gale MD - 06/18/2023 9:00 AM EST Note Date & Type Note Facility 06-18-2023 History of Present illness Narrative Subjective Herve Florentino is a 67 y.o. male Chief Complaint Follow-up HPI Patient is in the office for follow-up for the problems noted below. He has had no cardiac events since he was last seen. He does have stable claudication in the lower extremities. He continues to be on antiplatelet therapy and statin. He is non-smoker. Denies any angina orthopnea PND or lower extremity edema and his examination essentially unremarkable he has chronic bilateral femoral artery bruits. ASSESSMENT AND PLAN: 1. PCI of the RCA in 2004 and 2016. He is presently asymptomatic on dual antiplatelet therapy. No cardiac testing and no change in medication is needed, risk factors have been controlled 2. Sleep apnea, on CPAP machine. 3. 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 In his quadriceps bilaterally. He has bilateral femoral artery bruits. Encouraged the patient to continue to be physically active and advised him that his walking exercise program is as good as interventions. He is non-smoker currently 4. Hyperlipidemia, on statin therapy, under excellent control. Lipid profile from September 2022, blood work is scheduled in the near future 5. Overweight. Patient has gained 12 pounds since his last visit, encouragement provided for weight loss with low-calorie diet and more exercise. 6. Hypertension, presently under control. No side effect of medications 7. Diabetes, managed by PCP apparently is under control. 8. Patient had abdominal ultrasound to rule out AAA last summer which came back normal Pattie Gale MD, [facility] Review of Systems All other systems reviewed and are negative. Visit Vitals BP 130/76 (BP Location: Left arm, Patient Position: Sitting) Pulse 62 Ht 1.854 m (6' 1 ) Wt 103 kg (226 lb) BMI 29.82 kg/m Smoking Status Former BSA 2.3 m Objective Physical Exam Constitutional: Appearance: Normal appearance. He is normal weight. HENT: Nose: Nose normal. Neck: Vascular: No carotid bruit. Cardiovascular: Rate and Rhythm: Normal rate. Pulses: Normal pulses. Heart sounds: Normal heart sounds. Pulmonary: Effort: Pulmonary effort is normal. Abdominal: General: Bowel sounds are normal. Palpations: Abdomen is soft. Genitourinary: Rectum: Normal. Musculoskeletal: General: Normal range of motion. Cervical back: Normal range of motion. Right lower leg: No edema. Left lower leg: No edema. Skin: General: Skin is warm and dry. Neurological: General: No focal deficit present. Mental Status: He is alert. Psychiatric: Mood and Affect: Mood normal. Behavior: Behavior normal. Thought Content: Thought content normal. Judgment: Judgment normal. Current Medications Current Outpatient Medications: clopidogrel (Plavix) 75 mg tablet, Take 1 tablet (75 mg) by mouth once daily., Disp: , Rfl: gabapentin (Neurontin) 300 mg capsule, Take 1 capsule (300 mg) by mouth once daily at bedtime., Disp: , Rfl: hydroxychloroquine (Plaquenil) 200 mg tablet, Take 1 tablet (200 mg) by mouth 2 times a day., Disp: , Rfl: metFORMIN (Glucophage) 500 mg tablet, Take 2 tablets (1,000 mg) by mouth 2 times a day., Disp: , Rfl: ramipril (Altace) 10 mg capsule, Take 1 capsule (10 mg) by mouth once daily., Disp: , Rfl: rosuvastatin (Crestor) 10 mg tablet, Take 1 tablet (10 mg) by mouth once daily at bedtime., Disp: , Rfl: SITagliptin phosphate (Januvia) 100 mg tablet, Take 1 tablet (100 mg) by mouth once daily., Disp: , Rfl: tamsulosin (Flomax) 0.4 mg 24 hr capsule, Take 1 capsule (0.4 mg) by mouth once daily., Disp: , Rfl: testosterone 20.25 mg/1.25 gram (1.62 %) gel in metered-dose pump, Place on the skin., Disp: , Rfl: Assessment/Plan 1. ASCVD (arteriosclerotic cardiovascular disease) Follow Up In Cardiology Alanine Aminotransferase Aspartate Aminotransferase Basic Metabolic Panel CBC Lipid Panel Alanine Aminotransferase Aspartate Aminotransferase Basic Metabolic Panel CBC Lipid Panel 2. Peripheral vascular disease (CMS/HCC) Follow Up In Cardiology Alanine Aminotransferase Aspartate Aminotransferase Basic Metabolic Panel CBC Lipid Panel Alanine Aminotransferase Aspartate Aminotransferase Basic Metabolic Panel CBC Lipid Panel 3. Essential hypertension Follow Up In Cardiology Alanine Aminotransferase Aspartate Aminotransferase Basic Metabolic Panel CBC Lipid Panel Alanine Aminotransferase Aspartate Aminotransferase Basic Metabolic Panel CBC Lipid Panel 4. Hyperlipidemia, unspecified hyperlipidemia type Follow Up In Cardiology Alanine Aminotransferase Aspartate Aminotransferase Basic Metabolic Panel CBC Lipid Panel Alanine Aminotransferase Aspartate Aminotransferase Basic Metabolic Panel CBC Lipid Panel 5. Other specified diabetes mellitus without complication, without long-term current use of insulin (CMS/HCC) Follow Up In Cardiology Alanine Aminotransferase Aspartate Aminotransferase Basic Metabolic Panel CBC Lipid Panel Alanine Aminotransferase Aspartate Aminotransferase Basic Metabolic Panel CBC Lipid Panel 6. Former smoker 7. Overweight Scribe Attestation By signing my name below, Narcisa Manzano LPN , Scribe attest that this documentation has been prepared under the direction and in the presence of Pattie Gale MD. documented in this encounter [facility] Work Phone: Instructions 06-18-2023 Patient Instructions Note Date & Type Note Facility 06-18-2023 Instructions Willian Sumner MA - 06/18/2023 9:00 AM EST Please bring all medicines, vitamins, and herbal supplements with you when you come to the office. Prescriptions will not be filled unless you are compliant with your follow up appointments or have a follow up appointment scheduled as per instruction of your physician. Refills should be requested at the time of your visit. documented in this encounter [facility] Work Phone: Evaluation note 03-27-2022 Note Date & Type Note Facility 03-27-2022 Evaluation note Encounter Date Diagnosis Assessment Notes Mar, Obstructive sleep apnea (ICD-10 - G47.33) Fortunately the patient is using and benefiting from treatment. He is using treatment regularly and does feel it is effective for him. He does want to continue this treatment. We will get an order for new supplies. I discussed usual replacement pattern of every 3 to 6 months, as he apparently is still using the equipment he got 4 years ago. Assuming that all goes well I will have him return in 2 years. He will call sooner if problems. I did discuss the availability of inspire therapy but is not interested in pursuing this option at this time Mar, BMI 29.0-29.9,adult (ICD-10 - Z68.29) Weight reduction is broadly beneficial but can have significant positive effects on sleep apnea severity Mar, Essential hypertension (ICD-10 - I10) Blood pressure control frequently improves after control of obstructive sleep apnea, which emphasizes the importance of keeping good control of ROCK Mar, Other Call if any questions or problems. Patient is advised to work on healthy diet choices and appropriate servings, weight control, regular exercise as directed, and reduce fat intake. Use machine regularly, and keep up with mask changes as needed. Call if problems with mask toleration, increased sleepiness, or poor response to treatment. . [facility] Other Clinical Note 07-24-2021 Note Date & Type Note Facility 07-24-2021 Note PROCEDURE: XR KNEE R T 4V or > HISTORY: Pain of right knee joint ; medial knee pain, no known injury COMPARISON: None. FINDINGS: BONES:Tiny periarticular degenerative osteophytes. No fracture, dislocation, bone lesion. No significant joint space narrowing. SOFT TISSUES:No visible soft tissue swelling. EFFUSION:None visible. OTHER: Negative. IMPRESSION: 1. No acute bone abnormality. 2. Minimal degenerative changes. Electronically authenticated by: EILEEN QURESHI Date: 2021-07-24 17:01 [facility] Evaluation note Note Date & Type Note Facility Evaluation note No assessment information availa [facility] Work Phone: Evaluation note Note Date & Type Note Facility Evaluation note Diagnosis ASCVD (arteriosclerotic cardiovascular disease)- Primary Unspecified cardiovascular disease Peripheral vascular disease (CMS/HCC) Unspecified peripheral vascular disease Essential hypertension Unspecified essential hypertension Hyperlipidemia, unspecified hyperlipidemia type Other specified diabetes mellitus without complication, without long-term current use of insulin (CMS/HCC) Former smoker Personal history of tobacco use, presenting hazards to health Overweight documented in this encounter [facility] Work Phone: History general Narrative - Reported Note Date & Type Note Facility History general Narrative - Reported Type Medical History ROCK (obstructive sleep apnea) Medical History CAD in [place] artery Surgical History heart stent Surgical History left hip replacement [facility] Other Reason for referral (narrative) Consultation (Routine) - Authorized Note Date & Type Note Facility Reason for referral (narrati ve) Specialty Diagnoses / Procedures Referred By Contac t Referred To Contact Cardiology Diagnoses ASCVD (arteriosclerotic cardiovascular disease) Peripheral vascular disease (CMS/HCC) Essential hypertension Hyperlipidemia, unspecified hyperlipidemia type Other specified diabetes mellitus without complication, without long-term current use of insulin (CMS/HCC) Procedures Follow Up In Cardiology Pattie Gale MD [address] [place] [address], [address] [address] Pattie Gale MD [address] [place] [address] 2, [address] [address] Referral ID Status Reason Start Date Expiration Date V isits Requested Visits Authorized [id number] Authorized 06/18/2023 06/17/2024 1 1 [facility] Work Phone: Summary Purpose Family History Unknown Family Member Name Dates Details Family history of acute myoc ardial infarction: Uncle(V17.3, Z82.49) Status:Active FH: colon cancer: Brother, U ncle(V16.0, Z80.0) Status:Active Essential hypertension, [place]: Brother, Uncle Status:Active Family history of cardiac di sorder: Brother(V17.49, Z82.49) Status:Active Unknown Family Member Name Dates Details Family history of acute myoc ardial infarction: Uncle(V17.3, Z82.49) Status:Active FH: colon cancer: Brother, U ncle(V16.0, Z80.0) Status:Active Essential hypertension, [place]: Brother, Uncle Status:Active Family history of cardiac di sorder: Brother(V17.49, Z82.49) Status:Active Relationship Condition Age at Onset Recorded Date/T javier brother Malignant neoplasm of colon Unknown family member Malignant neoplasm of colon Unknown father Malignant neoplasm of lung Unknown sister Malignant neoplasm of breast Unknown Unknown Family Member Name Dates Details Family history of acute myoc ardial infarction: Uncle(V17.3, Z82.49) Status:Active FH: colon cancer: Brother, U ncle(V16.0, Z80.0) Status:Active Essential hypertension, [place]: Brother, Uncle Status:Active Family history of cardiac di sorder: Brother(V17.49, Z82.49) Status:Active Unknown Family Member Name Dates Details Family history of acute myoc ardial infarction: Uncle(V17.3, Z82.49) Status:Active FH: colon cancer: Brother, U ncle(V16.0, Z80.0) Status:Active Essential hypertension, [place]: Brother, Uncle Status:Active Family history of cardiac di sorder: Brother(V17.49, Z82.49) Status:Active Advance Directives Advance Directive Response Recorded Date/ Time Advance Directives No April 1:11pm Chief Complaint and Reason for Visit Chief Complaint Obstructive sleep ap molina Chief Complaint * HERVE FLORENTINO is being seen for a 9 month follow-up of. * Patient is in the office for follow-up for the problems noted below. Since he was last seen in the office he has made significant advances and lost 14 pounds and has been active, he has retired sincefebruary. His only complaint seems to be claudications involving his femoral arteries distributi on. His symptoms seem to resolve after a short rest. He does have bilateral femoral artery bruits. Patient has not had any ultrasound to check for aneurysm in the abdominal aorta, he qualifies for the screening since he is admitted over the age of 65 with tobacco use. 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 He has no angina pectoris recent lab data were reviewed and discussedwith him his numbers all on target. He denies any angina, palpitations or dyspnea. * ASSESSMENT AND PLAN: * 1. PCI of the RCA in 2004 and 2016. He is presently asymptomatic on dual antiplatelet therapy. No cardiac testing and no change in medication is needed, risk factors have been controlled * 2. Sleep apnea, on CPAP machine. Recent visit to the sleep lab staff were reviewed. * 3. 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 In his quadriceps bilaterally. He has bilateral femoral artery bruits. Encouraged the patient to continue to be physically active and advised him that his walking exercise program is as good as interventions. He is non-smoker currently * 4. Hyperlipidemia, on statin therapy, under excellent control. Lipid profile from September 2022 was reviewed with the patient, no changes are needed * 5. Overweight. Patient lost 14 pounds since his last visit which is great * 6. Hypertension, presently under control. No side effect of medications * 7. Diabetes, under control., A1c September 2022 below 7 * 8. Patient qualifies for screening for abdominal aortic aneurysm which is scheduled * Pattie Gale MD, [facility] Additional Source Comments (unrecognized sect ion and content) No Status Records FoundNo Status Records FoundNo Status Records FoundNo Status Records FoundNo Status Records FoundNo Status Records FoundNo Status Records Found INFORMATION SOURCE (unrecogn ized section and content) DATE CREATED AUTHOR 11/06/2017 Darnel[employer]ylon AlmendarezOyusifashley wong DATE CREATED AUTHOR AUTHOR'S ORGANIZ ATION 02/16/2022 [facility] DATE CREATED AUTHOR AUTHOR'S ORGANIZ ATION 02/16/2022 [employer] DATE CREATED AUTHOR AUTHOR'S ORGANIZ ATION 05/08/2022 [facility] DATE CREATED AUTHOR AUTHOR'S ORGANIZ ATION 11/02/2022 [facility] DATE CREATED AUTHOR AUTHOR[facility]S ORGANIZ ATION [facility]2023 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 This clinical summary was aggregated from multiple sources. Caution should be exercised in using it in the provision of clinical care. This summary normalizes information from multiple sources, and as a consequence, information in this document may materially change the coding, format and clinical context of patient data. In addition, data may be omitted in some cases. CLINICAL DECISIONS SHOULD BE BASED ON THE PRIMARY CLINICAL RECORDS. [employer] provides no warranty or guarantee of the accuracy or completeness of information in this document.
[2023-06-19 08:06] LABS: Alanine Aminotransferase 21 U/L (16-63); Aspartate Amino Transferase 14 U/L (15-37); Cholesterol 137 mg/dL (<=200); HDL Cholesterol 69 mg/dL (40-60); Triglycerides 35 mg/dL (<=150)
== END 2023-06-19 07:03 | disposition home or self-care (01) ==
LOC: LAB 07:05
PROVIDERS: PCP Family Medicine; Visit Provider Internal Medicine Cardiovascular Disease
DX: I25.10 Atherosclerotic heart disease of native coronary artery without angina pectoris (principal); I73.9 Peripheral vascular disease, unspecified; I10 Essential (primary) hypertension; E78.5 Hyperlipidemia, unspecified; E13.9 Other specified diabetes mellitus without complications; N40.1 Benign prostatic hyperplasia with lower urinary tract symptoms; E29.1 Testicular hypofunction; N52.9 Male erectile dysfunction, unspecified; R81 Glycosuria
CPT/HCPCS: 36415; 80061; 84450; 84460

== ENCOUNTER 2023-06-19 07:07 | Outpatient (OUT) | payer MEDICARE, OTHER, SELFPAY ==
--- OUTSIDE RECORDS SUMMARY | 2023-06-19 07:12 | XMS_ITS | CCD ---
Author Name Unknown Address [address] [place] [address] Organization [facility] Care Team Providers Care Mail Room Clerk Name Role Phone EILEEN PURVIS TENNILLE Unavailable Unavai JOSH Farrar Unavailable Unavailable Josh Ospina Unavailable Unavailable Unavailable Unavailable Unavailable Baljinder, Dr. Pattie Sanz Attending Shantel [facility]ailable [facility] Unavailab le Baljinder, Dr. Pattie Sanz Referring Shantel vailable Josh Ospina Primary Care Unavailab clau Gale, Dr. Pattie Sanz Referring Shantel vailable Baljinder, Dr. Pattie Sanz Attending Shantel vailable Aryan Garcia Unavailable DO Josh Ospina Primary Care Provider [phone] MD Aryan Garcia Attending Provider DR JAYSON [...] Ticagrelor; Translations: [Brilinta TABS] Drug Allergy 4 [facility] (1 source) Bee/Wasp/Ant venom; Translations: [Bee Stings] Propensity to adverse reactions (disorder) [facility] (1 source) No Known Medication Allergies; Translations: [No Known Medication Allergies] Propensity to adverse reactions (disorder) [facility] Medications Current Medications Medication Drug Class(es) [...] te Episodic/Chronic Other aftercare (1 source) Other long lines operator (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 [facility] Comment on above: Performed By: #### C MP, ESR, CBC #### [facility] [address] Eosinophils (Bld) [#/Vol] 0.1 10*3/uL Normal 0.0-0.45 [facility] Comment on above: Performed By: #### C MP, ESR, CBC #### [facility] [address] [place] [address] [place] Eosinophils/100 WBC (Bld) 1.2 % Normal . [facility] Comment on above: Performed By: #### C MP, ESR, CBC #### [facility] [address] Erythrocyte distribution width (RBC) [Ratio] 14.1 % Normal 12.0-14.8 [facility] Comment on above: Performed By: #### C MP, ESR, CBC #### [address] Hematocrit (Bld) [Volume fraction] 38.4 % Low 38.8-50.0 [facility] Comment on above: Performed By: #### C MP, ESR, CBC #### [address] Hemoglobin (Bld) [Mass/Vol] 13.1 g/dL Normal 13.0-17.0 [facility] Comment on above: Performed By: #### C MP, ESR, CBC #### [address] Lymphocytes (Bld) [#/Vol] 1.0 10*3/uL Normal 1.00-4.8 [facility] Comment on above: Performed By: #### C MP, ESR, CBC #### [place] [address] [place] Lymphocytes/100 WBC (Bld) 22.5 % Normal . [facility] Comment on above: Performed By: #### C MP, ESR, CBC #### [address] MCH (RBC) [Entitic mass] 31.1 pg Normal 27.5-35.2 [facility] Comment on above: Performed By: #### C MP, ESR, CBC #### [address] MCV (RBC) [Entitic vol] 91.2 fL Normal 83.5-101 [facility] Comment on above: Performed By: #### C MP, ESR, CBC #### [facility] [address] Mean Corpuscular HGB Conc 34.1 g/dL Normal 32.5-35.6 [facility] Comment on above: Performed By: #### C MP, ESR, CBC #### [facility] [address] Monocytes (Bld) [#/Vol] 0.3 10*3/uL Normal 0.0-0.8 [facility] Comment on above: Performed By: #### C MP, ESR, CBC #### [address] Monocytes/100 WBC (Bld) 7.3 % Normal . [facility] Comment on above: Performed By: #### C MP, ESR, CBC #### [address] Neutrophils (Bld) [#/Vol] 3.1 10*3/uL Normal 1.8-7.7 [facility] Comment on above: Performed By: #### C MP, ESR, CBC #### [address] Neutrophils/100 WBC (Bld) 68.7 % Normal . [facility] Comment on above: Performed By: #### C MP, ESR, CBC #### [address] NRBC% 0.0 /100{WBC} Normal 0-0.5 [facility] Comment on above: Performed By: #### C MP, ESR, CBC #### [address] Platelet mean volume (Bld) [Entitic vol] 9.7 fL Normal 6.6-10.1 [facility] Comment on above: Performed By: #### C MP, ESR, CBC #### [address] Platelets (Bld) [#/Vol] 144 10*3/uL Low 150-450 [facility] Comment on above: Performed By: #### C MP, ESR, CBC #### [address] RBC (Bld) [#/Vol] 4.21 10*6/uL Normal 3.90-5.60 [facility] Comment on above: Performed By: #### C MP, ESR, CBC #### [address] WBC (Bld) [#/Vol] 4.5 10*3/uL Normal 4.1-10.5 [facility] Comment on above: Performed By: #### C MP, ESR, CBC #### [address] Comprehensive Metabolic Pane jerrell 03-17-2023 Albumin [Mass/Vol] 4.5 g/dL Normal 3.5-5.7 [facility] Comment on above: Performed By: #### C MP, ESR, CBC #### [address] Albumin/Globulin [Mass ratio] 2.0 {ratio} Normal [facility] Comment on above: Performed By: #### C MP, ESR, CBC #### [address] ALP [Catalytic activity/Vol] 43 U/L Normal 34-104 [facility] Comment on above: Result Comment: PERF ORMED BY: [place] [address] PATHOLOGIST FORENSIC DOCUMENT EXAMINER BALDEMAR MCKINLEY M.D. Performed By: #### C MP, ESR, CBC #### [address] ALT [Catalytic activity/Vol] 14 U/L Normal 7-52 [facility] Comment on above: Performed By: #### C MP, ESR, CBC #### [address] Anion gap [Moles/Vol] 10.2 mmol/L Normal 6.0-15.0 [facility] Comment on above: Performed By: #### C MP, ESR, CBC #### [facility] [address] AST [Catalytic activity/Vol] 13 U/L Normal 13-39 [facility] Comment on above: Performed By: #### C MP, ESR, CBC #### [facility] [address] Bilirubin [Mass/Vol] 0.6 mg/dL Normal 0.3-1.0 [facility] Comment on above: Performed By: #### C MP, ESR, CBC #### [facility] [address] Calcium [Mass/Vol] 9.5 mg/dL Normal 8.6-10.3 [facility] Comment on above: Performed By: #### C MP, ESR, CBC #### [facility] [address] Chloride [Moles/Vol] 100 mmol/L Normal 98-107 [facility] Comment on above: Performed By: #### C MP, ESR, CBC #### [facility] [address] CO2 [Moles/Vol] 30.5 mmol/L Normal 21.0-31.0 [facility] Comment on above: Performed By: #### C MP, ESR, CBC #### [facility] [address] Creatinine [Mass/Vol] 0.98 mg/dL Normal 0.70-1.30 [facility] Comment on above: Performed By: #### C MP, ESR, CBC #### [facility] [address] [place] [address] [place] GFR/1.73 sq M.predicted MDRD (S/P/Bld) [Vol rate/Area] mL/min/{1.73_m2} Normal [facility] Comment on above: Performed By: #### C MP, ESR, CBC #### [facility] [address] [place] [address] [place] Globulin (S) [Mass/Vol] 2.3 g/dL Normal [facility] Comment on above: Performed By: #### C MP, ESR, CBC #### [facility] [address] Glucose [Mass/Vol] 177 mg/dL High 70-100 [facility] Comment on above: Result Comment: [place] Glucose Reference Range is dependent on time and content of last meal. Glucose of more than 200 mg/dL in a nonstressed, ambulatory subject supports the diagnosis of Diabetes Mellitus. ADA recommended reference range Performed By: #### C MP, ESR, CBC #### [address] Potassium [Moles/Vol] 4.7 mmol/L Normal 3.5-5.1 [facility] Comment on above: Performed By: #### C MP, ESR, CBC #### [facility] [address] Protein [Mass/Vol] 6.8 g/dL Normal 6.4-8.9 [facility] Comment on above: Performed By: #### C MP, ESR, CBC #### [address] Sodium [Moles/Vol] 136 mmol/L Normal 136-145 [facility] Comment on above: Performed By: #### C MP, ESR, CBC #### [facility] [address] Urea nitrogen [Mass/Vol] 16 mg/dL Normal 7-25 [facility] Comment on above: Performed By: #### C MP, ESR, CBC #### [facility] [address] Erythrocyte Sedimentation Ra riya 03-17-2023 ESR (Bld) [Velocity] 15 mm/h Normal 0-19 [facility] Comment on above: Result Comment: PERF ORMED BY: [place] [address] PATHOLOGIST FORENSIC DOCUMENT EXAMINER BALDEMAR MCKINLEY M.D. Performed By: #### C MP, ESR, CBC #### [facility] [address] VASC LAB Abdominal Aorta/Isela ac/IVC Ultraon 01-05-2023 VASC LAB Abdominal Aorta/Iliac/IVC Ultra [facility] [address] [place] [address], [address] [address] Vascular Lab Report Abdominal Aorta Iliac Ultrasound/IVC Ultrasound Patient Name: HERVE Emery FLORENTINO Reading Physician: [id number] Pattie Gale MD, [facility] Study Date: 01/05/2023 Referring PATTIE GALE Physician: MRN/PID: [id number] PCP: Josh Ospina MD Accession/Order#: [id number] CC Report to: Date of : 1955 Technologist: Deidre Jimenez RD, T Gender: M Technologist 2: Admission Status: Outpatient Location Performed: [facility] Diagnosis/ICD: L90-Ugfjtqdwh primary hypertension; R09.89-Bruit; I73.9-Peripheral vascular disease, unspecified Indication: ASCVD, Former Smoker, 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 Imaging AND Doppler Findings: AORTA AP Lateral PSV Proximal 1.49 cm 1.36 cm 101.0 cm/s Mid 1.55 cm 1.43 cm 97.0 cm/s Distal 1.57 cm 1.51 cm 72.0 cm/s RIGHT AP Lateral PSV FRANCISCO Proximal 1.08 cm 0.81 cm 147.00 cm/s LEFT AP Lateral PSV FRANCISCO Proximal 0.83 cm 0.96 cm 94.00 cm/s 39716 Pattie Gale MD, FAC Final Normal [facility] Lab Reportson 11-03-2022 Lab Reports [id number] [facility] [id number]#[id number] CD:127 Normal [facility] Lab Reports [id number]#1.00C D:127 Normal [facility] Patient Educationon 11-01-19 Patient Education Urology Hypogonadism, [...] Follow these instructions at home: ? Take bttz-ntc-qorvduq and prescription medicines only as told by [...] Document (more content not included)... Normal [facility] Urology Office/Clinic Noteon 10-31-2022 Urology Office/Clinic Note Chief Complaint 6m Testosterone HPI Staff 6m w/testosterone level due to Hypogonadism & Impotence. Additional DX: BPH & Glucosuria *Androgel 4 pumps QD, Tamsulosin 0.4mg QD & Sildenafil 100mg PRN T 10/28/22- 377 ([phone]) Androgel is helping with energy level. No [...] [facility] [address], [place] [address]- [phone] Additional Instructions: testosterone Patient Education Hypogonadism, Male I, Val Alston, personally scribed for Dr. Mohan on 10/31/2022 08:22:39. . Documentation recorded by the scribe, Val Alston, accurately reflects the services(s) I performed and decisions made by me. Authenticated by Dr. Moahn on 10/31/2022 08:24:28. Problem List/Past Medical History [...] cap(s (more content not included)... [facility] Comment on above: Result Comment: Elec tronically Signed By: Jayson MOHAN MD\.br\Date and Time Signed: 10/31/22 08:24 EDT\.br\Electronically Co-Signed By: Val Alston.cachorro\Date and Time Co-Signed: 10/31/22 08:22 EDT Lab Reportson 09-19-2022 Lab Reports [id number] D:127 [facility] Pre-Certification Formon Pre-Certification Form [id number]#1.00C D:127 [facility] Pre-Certification Formon Pre-Certification Form [id number]#1.00C D:127 [facility] Ambulatory Visit Summaryon 1 07-03-2021 Ambulatory Visit Summary HERVE FLORENTINO :1955 Visit Date:05/02/2022 Ambulatory Visit Instructions Your Diagnosis BPH with urinary obstruction Hypogonadism male Impotence Glucosuria Tests Performed Urnls Dip Stick Auto w/o Microscopy POC 91237 Your Care Team Attending Physician - Jayson [...] Jayson MOHAN MD Where: [facility] Lab Reportson 05-02-2022 Lab Reports [id number] D:127 Normal [facility] Patient Educationon 05-02-20 Patient Education Urology Benign [...] Follow these instructions at home: ? Take bnau-pge-iqtemao and prescription medicines only as told by [...] d (more content not included)... Normal [facility] Urology Office/Clinic Noteon 05-02-2022 Urology Office/Clinic [...] take at night. New script sent to [facility]. Inquired about starting Finasteride, recommended trying Flomax [...] that improves levels. New script sent to [facility]. Will follow up in 6 months with [...] Information JAMSHID VILLAVICENCIO, Jayson Rizo, URL [address] [place] [address]- Additional Instructions: 6 mos testosterone level Patient [...] tunnel rele (more content not included)... Normal [facility] Comment on above: Result Comment: Elec tronically Signed By: Jayson MOHAN MD\.br\Date and Time Signed: 05/02/22 08:54 EST\.br\Electronically Co-Signed By: Irma Leonardo\.br\Date and Time Co-Signed: 05/02/22 08:47 EST TESTOSTERONE, TOTALon 2021 Testosterone [Mass/Vol] 229 ng/dL Critically low 264-916 [facility] Comment on above: Result Comment: Adul t male reference interval is based on a population of healthy nonobese males (BMI <30) between 19 and 39 years old. Leticia et.al. JCEM 2017,102;2581-5531. PMID: [id number]. 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 Vitals Vital Signs Recorded: [id number] 08:27AM Heart Rate74, R Radial Fyvinbnw101, LUE, Sitting Uhrkdgzop98, LUE, Sitting Height6 ft 2 in Kuvcng190 lb 2 oz BMI Wotlxmtyie81.03 kg/m2 BSA Calculated2.29 Tobacco Useb) No PHQ-2 #1. Over the last 2 weeks have you felt down, depressed or hopeless? (If yes, answer PHQ-9 below)No PHQ-2 #2. Over the last 2 weeks have you felt littl (more content not included)... Normal [facility] Lab Reportson 01-13-2022 Lab Reports [id number]#1.00CD :127 Normal [facility] Lab Reports [id number] :127 Normal [facility] GLYCOHEMOGLOBIN A1Con 2021 ADA RECOMMENDATION SEE BELOW Normal [facility] Comment on above: Result Comment: ADA RECOMMENDED LIMIT 4.0 - 6.0 ADA THERAPEUTIC TARGET < 7.0 ACTION SUGGESTED > 7.0 Performed By: #### A 1C #### [facility] [address] [place] [address] Dr. Juan Alberto Carranza Glucose [Mass/Vol] 126 mg/dL Normal [facility] Comment on above: Performed By: #### A 1C #### [facility] [address] [place] [address] Dr. Juan Alberto Carranza HbA1c (Bld) [Mass fraction] 6.0 % Normal 4.5-6.2 [facility] Comment on above: Performed By: #### A 1C #### [facility] [address] [place] [address] Dr. Juan Alberto Carranza LIPID PROFILEon 01-10-2022 CHOL-HDL RATIO NORM SEE BELOW Normal [facility] Comment on above: Result Comment: 3.3 - 4.4 LOW RISK 4.4 - 7.1 AVERAGE RISK 7.1 - 11.0 MODERATE RISK >11.0 HIGH RISK Performed By: #### L IPID, CMP #### [facility] [address] [place] [address] Dr. Juan Alberto Carranza Cholesterol [Mass/Vol] 136 mg/dL Normal <=200 [facility] Comment on above: Performed By: #### L IPID, CMP #### [facility] [address] [place] [address] [address] Juan Alberto Carranza Cholesterol in HDL [Mass/Vol] 62 mg/dL Critically high 40-60 [facility] Comment on above: Performed By: #### L IPID, CMP #### [facility] [address] [place] [address] [address] Juan Alberto Carranza Cholesterol in LDL [Mass/Vol] 57.6 mg/dL Normal [facility] Comment on above: Performed By: #### L IPID, CMP #### [facility] [address] [place] [address] [address] Juan Alberto Carranza Cholesterol.total/C holesterol in HDL [Mass ratio] 2.2 {ratio} Normal [facility] Comment on above: Performed By: #### L IPID, CMP #### [facility] [address] [place] [address] Dr. Juan Alberto Carranza HDL NORMAL > or = 60 mg/dl - LO W CARDIOVASCULAR RISK <40 mg/dl - HIGH CARDIOVASCULAR RISK Normal [facility] Comment on above: Performed By: #### L IPID, CMP #### [facility] [address] [place] [address] [address] Juan Alberto Carranza LDL CALC NORMAL SEE BELOW Normal [facility] Comment on above: Result Comment: <100 mg/dl OPTIMAL 100 - 129 mg/dl NEAR OR ABOVE OPTIMAL 130 - 159 mg/dl BORDERLINE HIGH 160 - 189 mg/dl HIGH >190 mg/dl VERY HIGH Performed By: #### L IPID, CMP #### [facility] [address] [place] [address] [address] Juan Alberto Carranza Triglyceride [Mass/Vol] 82 mg/dL Normal <=150 [facility] Comment on above: Performed By: #### L IPID, CMP #### [facility] [address] [place] [address] [address] Juan Alberto Carranza VLDL CALC 16.4 mg/dL Normal [facility] Comment on above: Performed By: #### L IPID, CMP #### [facility] [address] [place] [address] [address] Juan Alberto Carranza PROF 14(COMP METB)on 022 Albumin [Mass/Vol] 4.0 g/dL Normal 3.4-5.0 [facility] Comment on above: Performed By: #### L IPID, CMP #### [facility] [address] [place] [address] [address] Juan Alberto Carranza Albumin/Globulin [Mass ratio] 1.3 {ratio} Normal [facility] Comment on above: Performed By: #### L IPID, CMP #### [facility] [address] [place] [address] [address] Juan Alberto Carranza ALP [Catalytic activity/Vol] 48 U/L Normal 46-116 [facility] Comment on above: Performed By: #### L IPID, CMP #### [facility] [address] [place] [address] [address] Juan Alberto Carranza ALT [Catalytic activity/Vol] 28 U/L Normal 16-63 [facility] Comment on above: Performed By: #### L IPID, CMP #### [facility] [address] [place] [address] [address] Juan Alberto Carranza Anion gap [Moles/Vol] 13.2 mmol/L Normal [facility] Comment on above: Performed By: #### L IPID, CMP #### [facility] [address] [place] [address] [address] Juan Alberto Carranza AST [Catalytic activity/Vol] 13 U/L Critically low 15-37 [facility] Comment on above: Performed By: #### L IPID, CMP #### [facility] [address] [place] [address] [address] Juan Alberto Carranza Bilirubin [Mass/Vol] 0.6 mg/dL Normal 0.2-1.0 [facility] Comment on above: Performed By: #### L IPID, CMP #### [facility] [address] [place] [address] [address] Juan Alberto Carranza Calcium [Mass/Vol] 8.8 mg/dL Normal 8.5-10.1 [facility] Comment on above: Performed By: #### L IPID, CMP #### [facility] [address] [place] [address] [address] Juan Alberto Carranza Chloride [Moles/Vol] 100 mmol/L Normal 98-107 [facility] Comment on above: Performed By: #### L IPID, CMP #### [facility] [address] [place] [address] Dr. Juan Alberto Carranza CO2 [Moles/Vol] 29.1 mmol/L Normal 21.0-32.0 [facility] Comment on above: Performed By: #### L IPID, CMP #### [facility] [address] [place] [address] Dr. Juan Alberto Carranza Creatinine [Mass/Vol] 0.89 mg/dL Normal 0.70-1.30 [facility] Comment on above: Performed By: #### L IPID, CMP #### [facility] [address] [place] [address] Dr. Juan Alberto Carranza EGFR-AF GUYANESE >60 Normal >=60 [facility] Comment on above: Performed By: #### L IPID, CMP #### [facility] [address] [place] [address] Dr. Juan Alberto Carranza EGFR-NON AF GUYANESE >60 Normal >=60 [facility] Comment on above: Performed By: #### L IPID, CMP #### [facility] [address] [place] [address] Dr. Juan Alberto Carranza Globulin (S) [Mass/Vol] 3.0 g/dL Normal [facility] Comment on above: Performed By: #### L IPID, CMP #### [facility] [address] [place] [address] Dr. Juan Alberto Carranza Glucose [Mass/Vol] 134 mg/dL Critically high 74-106 [facility] Comment on above: Performed By: #### L IPID, CMP #### [facility] [address] [place] [address] Dr. Juan Alberto Carranza Potassium [Moles/Vol] 4.3 mmol/L Normal 3.5-5.1 [facility] Comment on above: Performed By: #### L IPID, CMP #### [facility] [address] [address] [address] Juan Alberto Carranza Protein [Mass/Vol] 7.0 g/dL Normal 6.4-8.2 [facility] Comment on above: Performed By: #### L IPID, CMP #### [facility] [address] [address] [address] Juan Alberto Carranza Sodium [Moles/Vol] 138 mmol/L Normal 136-145 [facility] Comment on above: Performed By: #### L IPID, CMP #### [facility] [address] [address] [address] Juan Alberto Carranza Urea nitrogen [Mass/Vol] 17.0 mg/dL Normal 7.0-18.0 [facility] Comment on above: Performed By: #### L IPID, CMP #### [facility] [address] [address] [address] Juan Alberto Carranza Urea nitrogen/Creatinine [Mass ratio] 19.1 mg/mg Normal [facility] Comment on above: Performed By: #### L IPID, CMP #### [facility] [address] [address] [address] Juan Alberto Carranza TESTOSTERONE, TOTALon 2021 Testosterone [Mass/Vol] 321 ng/dL Normal 264-916 [facility] Comment on above: Result Comment: Adul t male reference interval is based on a population of healthy nonobese males (BMI <30) between 19 and 39 years old. Travison, et.al. JCEM 2017,102;5643-3818. PMID: [id number]. Performed By: #### T ESTTOT #### [facility] [address] [place] [address] Dr. Juan Alberto Carranza TESTOSTERONE, TOTALon 2021 Testosterone [Mass/Vol] 360 ng/dL Normal 264-916 [facility] Comment on above: Result Comment: Adul t male reference interval is based on a population of healthy nonobese males (BMI <30) between 19 and 39 years old. Travison, et.al. JCEM 2017,102;1843-6031. PMID: [id number]. Performed By: #### T ESTTOT ####[facility] [id number] [place], [place] [address]EyDr. Juan Alberto Carranza CBC AUTO DIFFon 07-13-2021 BASO # 0.0 103/ul Normal 0.0-0.1 [facility] Comment on above: Performed By: #### C BC #### [facility] [address] [address] [address] Juan Alberto Carranza Basophils/100 WBC (Bld) 0.5 % Normal 0.2-2.0 [facility] Comment on above: Performed By: #### C BC #### [facility] [address] [address] [address] Juan Alberto Carranza EO # 0.1 103/ul Normal 0.0-0.7 [facility] Comment on above: Performed By: #### C BC #### [facility] [address] [place] [address] Dr. Juan Alberto Carranza Eosinophils/100 WBC (Bld) 1.8 % Normal 0.9-7.0 [facility] Comment on above: Performed By: #### C BC #### [facility] [address] [address] [address] Juan Alberto Carranza Erythrocyte distribution width (RBC) [Ratio] 13.5 % Normal 11.0-15.0 [facility] Comment on above: Performed By: #### C BC #### [facility] [address] [address] [address] Juan Alberto Carranza Hematocrit (Bld) [Volume fraction] 40.4 % Critically low 42.0-54.0 [facility] Comment on above: Performed By: #### C BC #### [facility] [address] [address] [address] Juan Alberto Carranza Hemoglobin (Bld) [Mass/Vol] 13.9 g/dL Critically low 14.0-18.0 [facility] Comment on above: Performed By: #### C BC #### [facility] [address] [address] [address] Juan Alberto Carranza IG # 0.01 10e3/ul Normal 0.00-0.03 [facility] Comment on above: Performed By: #### C BC #### [facility] [address] [place] [address] Dr. Juan Alberto Carranza IG % 0.2 % Normal 0.0-0.5 [facility] Comment on above: Performed By: #### C BC #### [facility] [address] [place] [address] Dr. Juan Alberto Carranza LYMPH # 0.9 103/ul Critically low 1.2-3.8 [facility] Comment on above: Performed By: #### C BC #### [facility] [address] [place] [address] Dr. Juan Alberto Carranza Lymphocytes/100 WBC (Bld) 20.5 % Normal 20.5-60.0 [facility] Comment on above: Performed By: #### C BC #### [facility] [address] [place] [address] Dr. Juan Alberto Carranza MANUAL DIFF REQ NO Normal [facility] Comment on above: Performed By: #### C BC #### [facility] [address] [place] [address] Dr. Juan Alberto Carranza MCH (RBC) [Entitic mass] 32.3 pg Normal 25.9-34.0 [facility] Comment on above: Performed By: #### C BC #### [facility] [address] [place] [address] Dr. Juan Alberto Carranza MCHC (RBC) [Mass/Vol] 34.4 g/dL Normal 29.9-35.2 [facility] Comment on above: Performed By: #### C BC #### [facility] [address] [place] [address] Dr. Juan Alberto Carranza MCV (RBC) [Entitic vol] 93.7 fL Normal 80.0-94.0 [facility] Comment on above: Performed By: #### C BC #### [facility] [address] [place] [address] Dr. Juan Alberto Carranza MONO # 0.3 103/ul Normal 0.3-0.8 [facility] Comment on above: Performed By: #### C BC #### [facility] [address] [address] [address] Juan Alberto Carranza Monocytes/100 WBC (Bld) 7.0 % Normal 1.7-12.0 [facility] Comment on above: Performed By: #### C BC #### [facility] [address] [address] [address] Juan Alberto Carranza NEUT # 3.1 103/ul Normal 1.4-6.5 [facility] Comment on above: Performed By: #### C BC #### [facility] [address] [address] [address] Juan Alberto Carranza Neutrophils/100 WBC (Bld) 70.0 % Normal 43.0-75.0 [facility] Comment on above: Performed By: #### C BC #### [facility] [address] [place] [address] Dr. Juan Alberto Carranza Platelet mean volume (Bld) [Entitic vol] 11.3 fL Normal 9.5-13.5 [facility] Comment on above: Performed By: #### C BC #### [facility] [address] [address] [address] Juan Alberto Carranza PLT 141 103/ul Critically low 150-450 [facility] Comment on above: Performed By: #### C BC #### [facility] [address] [place] [address] Dr. Juan Alberto Carranza RBC 4.31 106/ul Critically low 4.70-6.10 [facility] Comment on above: Performed By: #### C BC #### [facility] [address] [address] [address] Juan Alberto Carranza WBC 4.4 103/ul Normal 4.0-11.0 [facility] Comment on above: Performed By: #### C BC #### [facility] [address] [place] [address] Dr. Juan Alberto Carranza LIPID PROFILEon 07-13-2021 CHOL-HDL RATIO NORM SEE BELOW Normal [facility] Comment on above: Result Comment: 3.3 - 4.4 LOW RISK 4.4 - 7.1 AVERAGE RISK 7.1 - 11.0 MODERATE RISK >11.0 HIGH RISK Performed By: #### L IPID #### [facility] [address] [address] [address] Juan Alberto Carranza Cholesterol [Mass/Vol] 139 mg/dL Normal <=200 [facility] Comment on above: Performed By: #### L IPID #### [facility] [address] [address] [address] Juan Alberto Craranza Cholesterol in HDL [Mass/Vol] 72 mg/dL Normal [facility] Comment on above: Performed By: #### L IPID #### [facility] [address] [address] [address] Juan Alberto Carranza Cholesterol in LDL [Mass/Vol] 62.4 mg/dL Normal [facility] Comment on above: Performed By: #### L IPID #### [facility] [address] [place] [address] Dr. Juan Alberto Carranza Cholesterol.total/C holesterol in HDL [Mass ratio] 1.9 {ratio} Normal [facility] Comment on above: Performed By: #### L IPID #### [facility] [address] [address] [address] Juan Alberto Carranza HDL NORMAL > or = 60 mg/dl - LO W CARDIOVASCULAR RISK <40 mg/dl - HIGH CARDIOVASCULAR RISK Normal [facility] Comment on above: Performed By: #### L IPID #### [facility] [address] [address] [address] Juan Alberto Carranza LDL CALC NORMAL SEE BELOW Normal [facility] Comment on above: Result Comment: <100 mg/dl OPTIMAL 100 - 129 mg/dl NEAR OR ABOVE OPTIMAL 130 - 159 mg/dl BORDERLINE HIGH 160 - 189 mg/dl HIGH >190 mg/dl VERY HIGH Performed By: #### L IPID #### [facility] [address] [address] [address] Juan Alberto Carranza Triglyceride [Mass/Vol] 23 mg/dL Normal <=150 [facility] Comment on above: Performed By: #### L IPID #### [facility] [address] [address] [address] Juan Alberto Carranza VLDL CALC 4.6 mg/dL Normal [facility] Comment on above: Performed By: #### L IPID #### [facility] [address] [place] [address] Dr. Juan Alberto Carranza PROF 14(COMP METB)on 022 Albumin [Mass/Vol] 4.0 g/dL Normal 3.5-5.0 [facility] Comment on above: Performed By: #### C MP #### [facility] [address] [place] [address] Dr. Juan Alberto Carranza Albumin/Globulin [Mass ratio] 1.3 {ratio} Normal [facility] Comment on above: Performed By: #### C MP #### [facility] [address] [place] [address] Dr. Juan Alberto Carranza ALP [Catalytic activity/Vol] 60 U/L Normal 38-126 [facility] Comment on above: Performed By: #### C MP #### [facility] [address] [place] [address] Dr. Juan Alberto Carranza ALT [Catalytic activity/Vol] 22 U/L Normal 21-72 [facility] Comment on above: Performed By: #### C MP #### [facility] [address] [place] [address] Dr. Juan Alberto Carranza Anion gap [Moles/Vol] 9.4 mmol/L Normal [facility] Comment on above: Performed By: #### C MP #### [facility] [address] [place] [address] Dr. Juan Alberto Carranza AST [Catalytic activity/Vol] 12 U/L Critically low 17-59 [facility] Comment on above: Performed By: #### C MP #### [facility] [address] [place] [address] Dr. Juan Alberto Carranza Bilirubin [Mass/Vol] 0.6 mg/dL Normal 0.2-1.3 [facility] Comment on above: Performed By: #### C MP #### [facility] [address] [place] [address] Dr. Juan Alberto Carranza Calcium [Mass/Vol] 8.9 mg/dL Normal 8.4-10.2 [facility] Comment on above: Performed By: #### C MP #### [facility] [address] [address] [address] Juan Alberto Carranza Chloride [Moles/Vol] 103 mmol/L Normal 98-107 [facility] Comment on above: Performed By: #### C MP #### [facility] [address] [address] [address] Juan Alberto Carranza CO2 [Moles/Vol] 28.8 mmol/L Normal 22.0-30.0 [facility] Comment on above: Performed By: #### C MP #### [facility] [address] [place] [address] Dr. Juan Alberto Carranza Creatinine [Mass/Vol] 0.83 mg/dL Normal 0.66-1.25 [facility] Comment on above: Performed By: #### C MP #### [facility] [address] [place] [address] Dr. Juan lAberto Carranza EGFR-AF GUYANESE >60 Normal >=60 [facility] Comment on above: Performed By: #### C MP #### [facility] [address] [place] [address] Dr. Juan Alberto Carranza EGFR-NON AF GUYANESE >60 Normal >=60 [facility] Comment on above: Performed By: #### C MP #### [facility] [address] [place] [address] Dr. Juan Alberto Carranza Globulin (S) [Mass/Vol] 3.2 g/dL Normal [facility] Comment on above: Performed By: #### C MP #### [facility] [address] [place] [address] Dr. Juan Alberto Carranza Glucose [Mass/Vol] 135 mg/dL Critically high 74-106 [facility] Comment on above: Performed By: #### C MP #### [facility] [address] [place] [address] Dr. Juan Alberto Carranza Potassium [Moles/Vol] 5.2 mmol/L Critically high 3.4-5.0 [facility] Comment on above: Performed By: #### C MP #### [facility] [address] [place], [place] [address] Dr. Juan Alberto Carranza Protein [Mass/Vol] 7.2 g/dL Normal 6.1-8.2 [facility] Comment on above: Performed By: #### C MP #### [facility] [address] [place], [place] [address] Dr. Juan Alberto Carranza Sodium [Moles/Vol] 136 mmol/L Critically low 137-145 [facility] Comment on above: Performed By: #### C MP #### [facility] [address] [place], [place] [address] Dr. Juan Alberto Carranza Urea nitrogen [Mass/Vol] 17.0 mg/dL Normal 9.0-20.0 [facility] Comment on above: Performed By: #### C MP #### [facility] [address] [place], [place] [address] Dr. Juan Alberto Carranza Urea nitrogen/Creatinine [Mass ratio] 20.5 mg/mg Normal [facility] Comment on above: Performed By: #### C MP #### [facility] [address] [place], [place] [address] Dr. Juan Alberto Carranza SED RATE [facility] 2021 SED RATE 2 mm/hr Normal <=20 [facility] Comment on above: Performed By: #### S EDR #### [facility] [address] [place], [place] [address] Dr. Juan Alberto Carranza Office Visit (Cardiology)on [...] Weight Tips; Status:Complete - Retrospective Authorization; Done: [id number] SocHx: Former smoker Tobacco Use Screening; Status:Complete; Done: [id number] Patient Instructions By signing my name below, 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 with previous SENIOR DIRECTOR INSIGHT the right SFA 2008 4. Hyperlipidemia, on statin therapy, under control. Lipid profile was requested from PCP 5. Overweight. Weight has dropped 15 pounds from last year which is encouraging 6. Hypertension, presently under control. 7. Diabetes, under control., Lab data from PCP were requested Pattie Gale MD, [facility] Current Meds Medication NameInstruction Aspirin 81 MG [...] negative for complaint. Vitals Vital Signs Recorded: [id number] 03:40PM Heart Rate80, R Radial Cflsohbl837, RUE, Sitting Phbqzhdht60, RUE, Sitting Height6 ft 2 in Uiuyba466 lb 9.6 oz BMI Nmyfybjnlb78.61 kg/m2 BSA Calculated2.31 Tobacco Useb) No Fall [...] by:VENICE Maeigned by:Jair Olivia MD07/06/17inal result Normal [facility] Vital Signs Date Time Vital Sign Value Performing Clinician Facility 06-18-2023 08:39-0500 Body height 185.4 cm Pattie Gale MD Work Phone: [facility] 06-18-2023 08:39-0500 Body mass index (BMI) [Ratio] 29.82 kg/m2 Pattie Gale MD Work Phone: [facility] 06-18-2023 08:39-0500 Body weight 102.51 kg Pattie Gale MD Work Phone: [facility] 06-18-2023 08:39-0500 Diastolic blood pressure 76 mm[Hg] Pattie Gale MD Work Phone: [facility] 06-18-2023 08:39-0500 Heart rate 62 /min Pattie Gale MD Work Phone: [facility] 06-18-2023 08:39-0500 Systolic blood pressure 130 mm[Hg] Pattie Gale MD Work Phone: [facility] 03-27-2022 16:00-0500 Body height Aryan Garcia Other [facility] Other 03-27-2022 16:00-0500 Body mass index (BMI) [Ratio] 29.81 kg/m2 Aryan Garcia Other [facility] Other 03-27-2022 16:00-0500 Body temperature 96.9 [degF] Aryan Garcia Other [facility] Other 03-27-2022 16:00-0500 Body weight 102.51 kg Aryan Garcia Other [facility] Other 03-27-2022 16:00-0500 Diastolic blood pressure 70 mm[Hg] Aryan Garcia Other [facility] Other 03-27-2022 16:00-0500 SaO2% (BldA) [Mass fraction] 100 % Aryan Garcia Other [facility] Other 03-27-2022 16:00-0500 Systolic blood pressure 128 mm[Hg] Aryan Garcia Other [facility] Other Encounters Encounter Date Encounter Type Care Provider Facility Start: 11-02-2023 [facility] Start: 06-18-2023 End: 06-18-2023 Office outpatient visit 25 minutes Pattie Gale MD Work Phone: [facility] Comment on above: ASCVD (arteriosclero tic cardiovascular disease) (Primary Dx); Peripheral vascular disease ([facility]); Essential hypertension; Hyperlipidemia, unspecified hyperlipidemia type; Other specified diabetes mellitus without complication, without long-term current use of insulin ([facility]); Former smoker; Overweight Start: 03-17-2023 End: 03-17-2023 ambulatory Shanice Bailey Facility:[facility] Start: 01-05-[address] Pattie Gale Facility:[id number] Start: 10-31-2022 End: 11-01-2022 ambulatory Jayson MOHAN Facility:[facility] Start: 10-08-2022 Office outpatient vi sit 25 minutes Josh Ospina Work Phone: [facility] Work Phone: Start: 08-20-2022 Rx Renewal Josh escobedo Work Phone: [facility] [address] DO Work Phone: Start: 05-02-2022 End: 05-03-2022 ambulatory Jayson MOHAN Facility: [facility] Start: 04-26-2022 End: 04-27-[address] JOSH OSPINA Facility:[facility] Start: 03-27-2022 End: 03-27-2022 Patient encounter procedure DO Josh Ospina Work Phone: [facility] Start: 03-27-2022 End: 03-27-2022 ambulatory DO Josh Ospina Work Phone: [facility] Work Phone: Start: 03-27-2022 Office outpatient vi sit 25 minutes Aryan [facility] Start: 02-04-[address] Pattie Gale Facility: Start: 01-10-2022 End: 01-11-[address] JOSH OSPINA Facility:[facility] Start: 12-03-2021 Rx Renewal Josh Sanchez Asim ng Work Phone: [facility] [address] DO Work Phone: Start: 11-26-2021 Rx Renewal Joshjose r Dailey ng Work Phone: [facility] [address] DO Work Phone: Start: 11-19-2021 Rx Renewal Josh Sanchez Lararinku ng Work Phone: [facility] [address] DO Work Phone: Start: 10-26-2021 End: 10-27-[address] JOSH OSPINA Facility:[facility] Start: 07-24-2021 End: 07-25-[address] SHANICE BAIELY Facility:[facility] Start: 07-13-2021 End: 07-14-[address] SHANICE BAILEY Facility:[facility] Start: 06-04-[address] JOSH OSPINA Fac ility:[facility] Start: 04-23-2021 ambulatory Josh Brand acility: Start: 07-06-2017 End: 07-09-2017 Ambulatory [facility] Procedures Date Procedure Procedure Detail Performing Clinician Start: 04-26-[address] PINO MOHAN Comment on above: Performed By: #### P SAD #### [facility] [address] [place] [address] Dr. Juan Alberto Carranza Start: 07-06-2017 Mri [...] DTaP/Tdap/Td Vaccines (2 - Td or Tdap) [facility] Start: 05-04-2024 Urine screening for protein Diabetes: Urine Protein Screening [facility] Start: 04-07-2024 Screening for malignant neoplasm of colon [facility] Start: 03-22-2024 End: 03-22-2024 Patient encounter procedure 03/22/2024 8:40 AM EST Office Visit [facility] [address] [facility] [address] [place] [address] Pattie Gale MD [address] [facility] [address] [place] [address] [facility] Start: 06-18-2023 End: 06-18-2024 Alanine aminotransferase [Enzymatic activity/volume] in Serum or Plasma by With P-5'-P Alanine Aminotransferase Lab Routine ASCVD (arteriosclerotic cardiovascular disease) Peripheral vascular disease (CMS/HCC) Essential hypertension Hyperlipidemia, unspecified hyperlipidemia type Other specified diabetes mellitus without complication, without long-term current use of insulin (CMS/HCC) Expected: 06/18/2023 (Approximate), Expires: 06/18/2024 [facility] Work Phone: Comment on above: Expected: 06/18/2023 (Approximate), Expi res: 06/18/2024 Start: 06-18-2023 End: 06-18-2024 Aspartate aminotransferase [Enzymatic activity/volume] in Serum or Plasma by With P-5'-P Aspartate Aminotransferase Lab Routine ASCVD (arteriosclerotic cardiovascular disease) Peripheral vascular disease (CMS/HCC) Essential hypertension Hyperlipidemia, unspecified hyperlipidemia type Other specified diabetes mellitus without complication, without long-term current use of insulin (CMS/HCC) Expected: 06/18/2023 (Approximate), Expires: 06/18/2024 [facility] Work Phone: Comment on above: Expected: 06/18/2023 (Approximate), Expi res: 06/18/2024 Start: 06-18-2023 End: 06-18-2024 Basic metabolic 2000 panel - Serum or Plasma Basic Metabolic Panel Lab Routine ASCVD (arteriosclerotic cardiovascular disease) Peripheral vascular disease (CMS/HCC) Essential hypertension Hyperlipidemia, unspecified hyperlipidemia type Other specified diabetes mellitus without complication, without long-term current use of insulin (CMS/HCC) Expected: 06/18/2023 (Approximate), Expires: 06/18/2024 [facility] Work Phone: Comment on above: Expected: 06/18/2023 (Approximate), Expi res: 06/18/2024 Start: 06-18-2023 End: 06-18-2024 CBC panel - Blood by Automated count CBC Lab Routine ASCVD (arteriosclerotic cardiovascular disease) Peripheral vascular disease (CMS/HCC) Essential hypertension Hyperlipidemia, unspecified hyperlipidemia type Other specified diabetes mellitus without complication, without long-term current use of insulin (CMS/HCC) Expected: 06/18/2023 (Approximate), Expires: 06/18/2024 [facility] Work Phone: Comment on above: Expected: 06/18/2023 (Approximate), Expi res: 06/18/2024 Start: 06-18-2023 End: 06-18-2024 Lipid 1996 panel - Serum or Plasma Lipid Panel Lab Routine ASCVD (arteriosclerotic cardiovascular disease) Peripheral vascular disease ([facility]) Essential hypertension Hyperlipidemia, unspecified hyperlipidemia type Other specified diabetes mellitus without complication, without long-term current use of insulin ([facility]) Expected: 06/18/2023 (Approximate), Expires: 06/18/2024 [facility] Work Phone: Comment on above: Expected: 06/18/2023 (Approximate), Expi res: 06/18/2024 Start: 06-18-2023 FUV, Provider: Pattie Gale, Status: Pen, Time: 9:00 AM FUV, Provider: Pattie Gale, Status: Pen, Time: 9:00 AM [facility] Work Phone: Start: 01-16-2023 COVID-19 Vaccine ( season) COVID-19 Vaccine ( season) [facility] Start: 01-05-2023 AOILIVC, Provider: [facility] 01,[id number], Status: Pen, Time: 7:45 AM [facility], Provider: [facility] 01,[id number], Status: Pen, Time: 7:45 AM [facility] Work Phone: Start: 10-08-2022 FUV, Provider: Pattie Gale, Status: Pen, Time: 8:40 AM FUV, Provider: Pattie Gale, Status: Pen, Time: 8:40 AM [facility] DO Work Phone: Start: 02-04-2022 FUV, Provider: Pattie Gale, Status: Pen, Time: 8:30 AM FUV, Provider: Pattie Gale, Status: Pen, Time: 8:30 AM [facility] [address] DO Work Phone: Start: 10-19-1973 Hepatitis C screening Hepatitis C Screening [facility] Start: 10-19-1965 Diabetic foot examination Diabetes: Foot Exam [facility] Start: 10-19-1965 Glaucoma screening Diabetes: Retinopathy Screening [facility] Start: 1955 Hemoglobin A1c measurement Diabetes: Hemoglobin A1C [facility] Start: 1955 Lipid panel Lipid Panel [facility] Start: 1955 Medicare Annual Wellness Visit Medicare Annual Wellness Visit (AWV) [facility] Start: 1955 Screening for malignant neoplasm of colon [facility] Immunizations Immunization Date Immunization Notes Care Provider Rahel rice 04-14-2022 Prevnar 20 0.5 ML Intramuscular Suspension Prefilled Syringe Josh Sanchez [employer] Work Phone: [facility] Work Phone: 02-18-2021 Pfizer-BioNTech COVI D-19 Vacc 30 MCG/0.3ML Intramuscular Suspension Josh Daileyng Work Phone: [facility] 08-08-2020 Pfizer-BioNTech COVI D-19 Vacc 30 MCG/0.3ML Intramuscular Suspension oJsh Bermudezlong Work Phone: [facility] 250 DO Work Phone: 08-05-2020 Pfizer Purple Cap SARS-CoV-2 Pattie Gale MD Work Phone: [facility] Work Phone: 07-18-2020 Moderna COVID-19 Vac cine 100 MCG/0.5ML Intramuscular Suspension Josh Bermudezlong Work Phone: [facility] 250 DO Work Phone: 07-18-2020 Pfizer-BioNTech COVI D-19 Vacc 30 MCG/0.3ML Intramuscular Suspension Josh Bermudezlong Work Phone: [facility] [place] [address] DO Work Phone: 05-08-2020 pneumococcal polysaccharide vaccine, 23 valent Josh G [employer] Work Phone: [facility] 02-16-2020 influenza virus vacc ine, unspecified formulation Josh G Furlong Work Phone: [place] [address] DO Work Phone: 02-16-2020 influenza, injectabl e, quadrivalent, preservative free Pattie Gale MD Work Phone: [facility] Work Phone: 06-29-2019 zoster vaccine recombinant Josh G [place] Work Phone: [place] [address] DO Work Phone: 04-28-2019 zoster vaccine recombinant [facility] Work Phone: [place] [address] DO Work Phone: 03-18-2019 influenza virus vacc ine, unspecified formulation Josh G [place] Work Phone: [place] [address] DO Work Phone: 03-02-2019 influenza, injectabl e, quadrivalent, contains preservative [facility] Work Phone: [place] [address] DO Work Phone: 04-13-2018 Influenza, injectabl e, Madin Myla Canine Kidney, preservative free, quadrivalent [facility] Work Phone: [place] [address] DO Work Phone: 03-18-2018 influenza virus vacc ine, unspecified formulation Josh G [place] Work Phone: [place] [address] DO Work Phone: 04-20-2017 influenza, injectabl e, quadrivalent, preservative free [facility] Work Phone: [place] [address] DO Work Phone: 03-31-2017 influenza, injectabl e, quadrivalent, preservative free Josh Bermudezng Work Phone: [place] [address] DO Work Phone: 03-18-2017 influenza virus vacc ine, unspecified formulation Josh Sanchez [place] Work Phone: [place] [address] DO Work Phone: 02-16-2016 influenza virus vacc ine, unspecified formulation Josh Sanchez [place] Work Phone: [place] [address] DO Work Phone: 03-18-2015 influenza, seasonal, injectable Josh Sanchez [place] Work Phone: [place] [address] DO Work Phone: 02-15-2015 influenza virus vacc ine, unspecified formulation Josh Sanchez [place] Work Phone: [place] [address] DO Work Phone: 07-04-2014 pneumococcal conjuga te vaccine, 13 valent Josh Sanchez [place] Work Phone: [place] [address] DO Work Phone: 07-04-2014 tetanus toxoid, redu leonel diphtheria toxoid, and acellular pertussis vaccine, adsorbed Josh G [place] Work Phone: [place] [address] DO Work Phone: 02-22-2014 influenza virus vacc ine, whole virus Josh Sanchez [place] Work Phone: [place] [address] DO Work Phone: 07-18-2013 influenza virus vacc ine, unspecified formulation Josh Daileyng Work Phone: [facility] 250 DO Work Phone: 03-18-2009 influenza virus vacc ine, unspecified formulation Josh Ospina Work Phone: [facility] 250 DO Work Phone: influenza virus vacc ine, unspecified formulation Josh Daileyng Work Phone: [place] [address] DO Work Phone: Comment on above: [id number] [id number] Payers Date Payer Category Payer Medicare [id number] 2022 Self-pay [id number] 2020 Medicare [id number] 1959 Medicare [id number] 1959 Self-pay [id number] 1959 Unknown [id number] 1955 Unknown [id number] .16. [id number] 1955 Unknown [id number] .16. [id number] 1955 Unknown [id number] 2.16.84 0.1.431514.3.579.2.593 1955 Unknown [id number] 2.16.84 0.1.702772.3.579.2.593 1955 Unknown [id number] 2.16.84 0.1.730561.3.579.2.593 1955 Unknown [id number] 2.16.84 0.1.239856.3.579.2.593 1955 Unknown [id number] 2.16.84 0.1.998505.3.579.2.593 1955 Unknown [id number] 2.16.84 0.1.700680.3.579.2.593 1955 Unknown [id number] 2.16.84 0.1.075369.3.579.2.593 1955 Unknown [id number] 2.16.84 0.1.447289.3.579.2.593 1955 Unknown [id number] 2.16.8 40.1.151409.3.579.2.727 1955 Unknown [id number] 2.16.8 40.1.638222.3.579.2.727 1955 Unknown [id number] 2.16.8 40.1.566833.3.579.2.727 1955 Unknown [id number] 2.16.8 40.1.603428.3.579.2.1068 Unknown Unknown [id number] 2.16.8 40.1.393157.3.579.2.531 Unknown [id number] 2.16.8 40.1.116389.3.579.2.531 Social History Date Type Detail Facility Start: 05-26-2023 Alcohol use Alcohol use -[facility] DO Work Phone: Comment on above: 1-2 cups of coffee d aily; Start: 05-26-2023 Sex Assigned At N [facility] [employer] Other Start: 04-08-2019 End: 05-26-2023 Tobacco smoking status NJIS Ex-smoker (finding) [facility] Start: 1955 Sex Assigned At Male F [facility] History of tobacco use Current smoker [facility] Work Phone: History of tobacco use Cigarette Smoker [facility] Work Phone: Start: 05-26-2023 Tobacco use and exposure Smokeless tobacco non-user [facility] Work Phone: Start: 06-18-2023 Alcohol intake Current drinke r of alcohol (finding) [facility] Work Phone: Start: 1955 Sex Assigned At Not on file [facility] Work Phone: Start: 06-08-2023 End: 06-18-2023 Exposure to SARS-CoV-2 (event) Not sure [facility] History of Present illness Narrative 06-18-2023 Pattie 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 with previous SENIOR DIRECTOR INSIGHT the right SFA 2008, currently has stable [...] which came back normal [facility] Gale MD, [facility] Review of Systems All other systems reviewed [...] Pattie Gale MD. documented in this encounter [facility] Work Phone: Instructions 06-18-2023 Patient Instructions Note [...] of your visit. documented in this encounter [facility] Work Phone: Evaluation note 03-27-2022 Note Date [...] sleepiness, or poor response to treatment. . [facility] Other Clinical Note 07-24-2021 Note Date & [...] authenticated by: EILEEN QURESHI Date: 2021-07-24 17:01 [facility] Evaluation note Note Date & Type Note Facility Evaluation note No assessment information availa [facility] Work Phone: Evaluation note Note Date & [...] to health Overweight documented in this encounter [facility] Work Phone: History general Narrative - Reported Note Date & Type Note Facility History general Narrative - Reported Type Medical History ROCK (obstructive sleep apnea) Medical History CAD in [place] artery Surgical History heart stent Surgical History left hip replacement [facility] Other Reason for referral (narrative) Consultation (Routine) [...] Follow Up In Cardiology Pattie Gale MD [address] [place] [address], [address] [address] Pattie Gale MD [address] [place] [address] 2, [address] [address] Referral ID Status Reason Start Date Expiration Date V isits Requested Visits Authorized [id number] Authorized 06/18/2023 06/17/2024 1 1 [facility] Work Phone: Summary Purpose Family History Unknown [...] with tobacco use. He has had previous SENIOR DIRECTOR INSIGHT of the femoral arteries in the past. 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 with previous SENIOR DIRECTOR INSIGHT the right SFA 2008, currently has stable [...] which is scheduled * Pattie Gale MD, [facility] Additional Source Comments (unrecognized sect ion and content) No Status Records FoundNo Status Records FoundNo Status Records FoundNo Status Records FoundNo Status Records FoundNo Status Records FoundNo Status Records Found INFORMATION SOURCE (unrecogn ized section and content) DATE CREATED AUTHOR 11/06/2017 Darnel[employer]ylon AlmendarezYousifashley wong DATE CREATED AUTHOR AUTHOR'S ORGANIZ ATION 02/16/2022 [facility] DATE CREATED AUTHOR AUTHOR'S ORGANIZ ATION 02/16/2022 [employer] DATE CREATED AUTHOR AUTHOR'S ORGANIZ ATION 05/08/2022 [facility] DATE CREATED AUTHOR AUTHOR'S ORGANIZ ATION 11/02/2022 [facility] DATE CREATED AUTHOR AUTHOR'S ORGANIZ ATION 01/07/2023 [facility] DATE CREATED AUTHOR AUTHOR'S ORGANIZ ATION 03/25/2023 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 [employer] provides no warranty or guarantee of the accuracy or completeness of information in this document.
[2023-06-19 07:55] LABS: Basophils Percent Auto 0.2 % (0.2-2.0); Eosinophils Absolute Auto 0.1 10^3/uL (0.0-0.7); Eosinophils Percent Auto 1.3 % (0.9-7.0); Hematocrit 36.6 % (42.0-54.0); Hemoglobin 12.3 g/dL (14.0-18.0); Immature Granulocytes Abs Auto 0.01 10^3/uL (0.00-0.03); Immature Granulocytes Pct Auto 0.2 % (0.0-0.5); Lymphocytes Absolute Auto 0.9 10^3/uL (1.2-3.8); Lymphocytes Percent Auto 18.3 % (20.5-60.0); Mean Corpuscular HGB Conc 33.6 g/dL (29.9-35.2); Mean Corpuscular Hemoglobin 31.2 pg (25.9-34.0); Mean Corpuscular Volume 92.9 fL (80.0-94.0); Mean Platelet Volume 10.9 fL (9.5-13.5); Monocytes Absolute Auto 0.3 10^3/uL (0.3-0.8); Monocytes Percent Auto 5.9 % (1.7-12.0); Neutrophils Absolute Auto 3.5 10^3/uL (1.4-6.5); Neutrophils Percent Auto 74.1 % (43.0-75.0); Platelet Count 144 10^3/uL (150-450); Red Blood Count 3.94 10^6/uL (4.70-6.10); Red Cell Distribution Width 13.7 % (11.0-15.0); White Blood Count 4.7 10^3/uL (4.0-11.0)
[2023-06-19 08:01] LABS: Erythrocyte Sedimentation Rate 27 mm/hr (<=20)
[2023-06-19 08:07] LABS: Alanine Aminotransferase 21 U/L (16-63); Albumin Globulin Ratio 1.1; Albumin Level 3.6 g/dL (3.4-5.0); Alkaline Phosphatase 43 U/L (46-116); Anion Gap 12.3; Aspartate Amino Transferase 13 U/L (15-37); BUN Creatinine Ratio 16.5; Bilirubin Total 0.5 mg/dL (0.2-1.0); Calcium 8.5 mg/dL (8.5-10.1); Carbon Dioxide 28.1 mmol/L (21.0-32.0); Chloride 102 mmol/L (98-107); Estimated GFR (African America >60 (>=60); Estimated GFR (Non-African Ame >60 (>=60); Globulin 3.3 g/dL; Glucose 133 mg/dL (74-106); Potassium 4.4 mmol/L (3.5-5.1); Sodium 138 mmol/L (136-145); Total Protein 6.9 g/dL (6.4-8.2)
== END 2023-06-19 07:08 | disposition home or self-care (01) ==
LOC: LAB 07:09
PROVIDERS: PCP Family Medicine; Visit Provider Registered Nurse
DX: I25.10 Atherosclerotic heart disease of native coronary artery without angina pectoris (principal); I73.9 Peripheral vascular disease, unspecified; I10 Essential (primary) hypertension; E78.5 Hyperlipidemia, unspecified; E13.9 Other specified diabetes mellitus without complications; N40.1 Benign prostatic hyperplasia with lower urinary tract symptoms; E29.1 Testicular hypofunction; N52.9 Male erectile dysfunction, unspecified; R81 Glycosuria; M05.79 Rheumatoid arthritis 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; M15.0 Primary generalized (osteo)arthritis; Z79.899 Other long term (current) drug therapy
CPT/HCPCS: 36415; 80053; 80061; 84402; 84403; 84450; 84460; 85025; 85652

== ENCOUNTER 2023-06-19 07:12 | Outpatient (OUT) | payer MEDICARE, OTHER, SELFPAY ==
--- OUTSIDE RECORDS SUMMARY | 2023-06-19 07:18 | XMS_ITS | CCD ---
Author Name Unknown Address [address] [place] [address] Organization [facility] Care Team Providers Care Licensed Chemical Spray Technician Name Role Phone EILEEN PURVIS TENNILLE Unavailable Unavai JOSH Farrar Unavailable Unavailable Josh Ospina Unavailable Unavailable Unavailable Unavailable Unavailable Baljinder, Dr. Pattie Sanz Attending Shnatel vailable [facility] Unavailab le Baljinder, Dr. Pattie Sanz Referring Shantel vailable Josh Ospina Primary Care Unavailab clau Gale, Dr. Pattie Sanz Referring Shantel vailable Baljinder, Dr. Pattie Sanz Attending Shantel vailable Aryan Garcia Unavailable DO Josh Ospina Primary Care Provider [phone] MD Aryan Garcia Attending Provider DR JAYSON MOHAN Attending Unavailable FURLOGREGG, DR JOSH Sanchez Primary Care Unavailable FURLONG, DR JOSH Sanchez Consulting Unavailable DR JAYSON MOHAN Admitting Unavailable DR JASYON MOHAN Consulting Unavailable FURLONG, DR JOSH Sanchez [...] Ticagrelor; Translations: [Brilinta TABS] Drug Allergy 4 [facility] (1 source) Bee/Wasp/Ant venom; Translations: [Bee Stings] Propensity to adverse reactions (disorder) [facility] (1 source) No Known Medication Allergies; Translations: [No Known Medication Allergies] Propensity to adverse reactions (disorder) [facility] Medications Current Medications Medication Drug Class(es) [...] te Episodic/Chronic Other aftercare (1 source) Other rn long term care (current) drug therapy; Translations: [OTH AUDIT SPEC CURRENT DRUG THERAPY] Onset: 07-16-2021 Episodic Other [...] Basophils (Bld) [#/Vol] 0.0 10*3/uL Normal 0.0-0.2 [facility] Comment on above: Performed By: #### C MP, ESR, CBC #### [facility] [address] Basophils/100 WBC (Bld) 0.3 % Normal . [facility] Comment on above: Performed By: #### C MP, ESR, CBC #### [facility] [address] Eosinophils (Bld) [#/Vol] 0.1 10*3/uL Normal 0.0-0.45 [facility] Comment on above: Performed By: #### C MP, ESR, CBC #### [facility] [address] [place] [address] [place] Eosinophils/100 WBC (Bld) 1.2 % Normal . [facility] Comment on above: Performed By: #### C MP, ESR, CBC #### [facility] [address] Erythrocyte distribution width (RBC) [Ratio] 14.1 % Normal 12.0-14.8 [facility] Comment on above: Performed By: #### C MP, ESR, CBC #### [address] Hematocrit (Bld) [Volume fraction] 38.4 % Low 38.8-50.0 [facility] Comment on above: Performed By: #### C MP, ESR, CBC #### [address] Hemoglobin (Bld) [Mass/Vol] 13.1 g/dL Normal 13.0-17.0 [facility] Comment on above: Performed By: #### C MP, ESR, CBC #### [address] Lymphocytes (Bld) [#/Vol] 1.0 10*3/uL Normal 1.00-4.8 [facility] Comment on above: Performed By: #### C MP, ESR, CBC #### [place] [address] [place] Lymphocytes/100 WBC (Bld) 22.5 % Normal . [facility] Comment on above: Performed By: #### C MP, ESR, CBC #### [address] MCH (RBC) [Entitic mass] 31.1 pg Normal 27.5-35.2 [facility] Comment on above: Performed By: #### C MP, ESR, CBC #### [address] MCV (RBC) [Entitic vol] 91.2 fL Normal 83.5-101 [facility] Comment on above: Performed By: #### C MP, ESR, CBC #### [facility] [address] Mean Corpuscular HGB Conc 34.1 g/dL Normal 32.5-35.6 [facility] Comment on above: Performed By: #### C MP, ESR, CBC #### [facility] [address] Monocytes (Bld) [#/Vol] 0.3 10*3/uL Normal 0.0-0.8 [facility] Comment on above: Performed By: #### C MP, ESR, CBC #### [address] Monocytes/100 WBC (Bld) 7.3 % Normal . [facility] Comment on above: Performed By: #### C MP, ESR, CBC #### [address] Neutrophils (Bld) [#/Vol] 3.1 10*3/uL Normal 1.8-7.7 [facility] Comment on above: Performed By: #### C MP, ESR, CBC #### [address] Neutrophils/100 WBC (Bld) 68.7 % Normal . [facility] Comment on above: Performed By: #### C MP, ESR, CBC #### [address] NRBC% 0.0 /100{WBC} Normal 0-0.5 [facility] Comment on above: Performed By: #### C MP, ESR, CBC #### [address] Platelet mean volume (Bld) [Entitic vol] 9.7 fL Normal 6.6-10.1 [facility] Comment on above: Performed By: #### C MP, ESR, CBC #### [address] Platelets (Bld) [#/Vol] 144 10*3/uL Low 150-450 [facility] Comment on above: Performed By: #### C MP, ESR, CBC #### [address] RBC (Bld) [#/Vol] 4.21 10*6/uL Normal 3.90-5.60 [facility] Comment on above: Performed By: #### C MP, ESR, CBC #### [address] WBC (Bld) [#/Vol] 4.5 10*3/uL Normal 4.1-10.5 [facility] Comment on above: Performed By: #### C MP, ESR, CBC #### [address] Comprehensive Metabolic Pane jerrell 03-17-2023 Albumin [Mass/Vol] 4.5 g/dL Normal 3.5-5.7 [facility] Comment on above: Performed By: #### C MP, ESR, CBC #### [address] Albumin/Globulin [Mass ratio] 2.0 {ratio} Normal [facility] Comment on above: Performed By: #### C MP, ESR, CBC #### [address] ALP [Catalytic activity/Vol] 43 U/L Normal 34-104 [facility] Comment on above: Result Comment: PERF ORMED BY: [place] [address] PATHOLOGIST KNOT BORER BALDEMAR MCKINLEY M.D. Performed By: #### C MP, ESR, CBC #### [address] ALT [Catalytic activity/Vol] 14 U/L Normal 7-52 [facility] Comment on above: Performed By: #### C MP, ESR, CBC #### [address] Anion gap [Moles/Vol] 10.2 mmol/L Normal 6.0-15.0 [facility] Comment on above: Performed By: #### C MP, ESR, CBC #### [facility] [address] AST [Catalytic activity/Vol] 13 U/L Normal 13-39 [facility] Comment on above: Performed By: #### C MP, ESR, CBC #### [facility] [address] Bilirubin [Mass/Vol] 0.6 mg/dL Normal 0.3-1.0 [facility] Comment on above: Performed By: #### C MP, ESR, CBC #### [facility] [address] Calcium [Mass/Vol] 9.5 mg/dL Normal 8.6-10.3 [facility] Comment on above: Performed By: #### C MP, ESR, CBC #### [facility] [address] Chloride [Moles/Vol] 100 mmol/L Normal 98-107 [facility] Comment on above: Performed By: #### C MP, ESR, CBC #### [facility] [address] CO2 [Moles/Vol] 30.5 mmol/L Normal 21.0-31.0 [facility] Comment on above: Performed By: #### C MP, ESR, CBC #### [facility] [address] Creatinine [Mass/Vol] 0.98 mg/dL Normal 0.70-1.30 [facility] Comment on above: Performed By: #### C MP, ESR, CBC #### [facility] [address] [place] [address] [place] GFR/1.73 sq M.predicted MDRD (S/P/Bld) [Vol rate/Area] mL/min/{1.73_m2} Normal [facility] Comment on above: Performed By: #### C MP, ESR, CBC #### [facility] [address] [place] [address] [place] Globulin (S) [Mass/Vol] 2.3 g/dL Normal [facility] Comment on above: Performed By: #### C MP, ESR, CBC #### [facility] [address] Glucose [Mass/Vol] 177 mg/dL High 70-100 [facility] Comment on above: Result Comment: [place] Glucose Reference Range is dependent on time and content of last meal. Glucose of more than 200 mg/dL in a nonstressed, ambulatory subject supports the diagnosis of Diabetes Mellitus. ADA recommended reference range Performed By: #### C MP, ESR, CBC #### [address] Potassium [Moles/Vol] 4.7 mmol/L Normal 3.5-5.1 [facility] Comment on above: Performed By: #### C MP, ESR, CBC #### [facility] [address] Protein [Mass/Vol] 6.8 g/dL Normal 6.4-8.9 [facility] Comment on above: Performed By: #### C MP, ESR, CBC #### [address] Sodium [Moles/Vol] 136 mmol/L Normal 136-145 [facility] Comment on above: Performed By: #### C MP, ESR, CBC #### [facility] [address] Urea nitrogen [Mass/Vol] 16 mg/dL Normal 7-25 [facility] Comment on above: Performed By: #### C MP, ESR, CBC #### [facility] [address] Erythrocyte Sedimentation Ra riya 03-17-2023 ESR (Bld) [Velocity] 15 mm/h Normal 0-19 [facility] Comment on above: Result Comment: PERF ORMED BY: [place] [address] PATHOLOGIST KNOT BORER BALDEMAR MCKINLEY M.D. Performed By: #### C MP, ESR, CBC #### [facility] [address] VASC LAB Abdominal Aorta/Isela ac/IVC Ultraon 01-05-2023 VASC LAB Abdominal Aorta/Iliac/IVC Ultra [facility] [address] [place] [address], [address] [address] Vascular Lab Report Abdominal Aorta Iliac Ultrasound/IVC Ultrasound Patient Name: HERVE Emery FLORENTINO Reading Physician: [id number] Pattie Gale MD, [facility] Study Date: 01/05/2023 Referring PATTIE GALE Physician: MRN/PID: [id number] PCP: Josh Ospina MD Accession/Order#: [id number] CC Report to: Date of : 1955 Technologist: Deidre Jimenez RD, T Gender: M Technologist 2: Admission Status: Outpatient Location Performed: [facility] Diagnosis/ICD: C35-Ryucazrvt primary hypertension; R09.89-Bruit; I73.9-Peripheral vascular disease, unspecified Indication: ASCVD, Former Smoker, 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 Imaging AND Doppler Findings: AORTA AP Lateral PSV Proximal 1.49 cm 1.36 cm 101.0 cm/s Mid 1.55 cm 1.43 cm 97.0 cm/s Distal 1.57 cm 1.51 cm 72.0 cm/s RIGHT AP Lateral PSV FRANCISCO Proximal 1.08 cm 0.81 cm 147.00 cm/s LEFT AP Lateral PSV FRANCISCO Proximal 0.83 cm 0.96 cm 94.00 cm/s [id number] Pattie Gale MD, FAC Electronically signed by [id number] Gale MD, [facility] on 01/06/2023 at 5:29:20 PM Final Normal [facility] Lab Reportson 11-03-2022 Lab Reports [id number] [facility] [place][note 2] [id number]#1.00 CD:127 Normal [facility] Lab Reports [id number]#1.00C D:127 Normal [facility] Patient Educationon 11-01-19 Patient Education Urology Hypogonadism, [...] Follow these instructions at home: ? Take zoxd-hrg-ikshlfk and prescription medicines only as told by [...] Document (more content not included)... Normal [facility] Urology Office/Clinic Noteon 10-31-2022 Urology Office/Clinic Note Chief Complaint 6m Testosterone HPI Staff 6m w/testosterone level due to Hypogonadism & Impotence. Additional DX: BPH & Glucosuria *Androgel 4 pumps QD, Tamsulosin 0.4mg QD & Sildenafil 100mg PRN T 10/28/22- 377 (149-221) Androgel is helping with energy level. No [...] [facility] [address], [place] [address]- [phone] Additional Instructions: testosterone Patient Education Hypogonadism, Male [...] mg= 1 cap(s (more content not included)... [facility] Comment on above: Result Comment: Elec tronically Signed By: Jayson MOHAN MD\.br\Date and Time Signed: 10/31/22 08:24 EDT\.br\Electronically Co-Signed By: Val Alston.cachorro\Date and Time Co-Signed: 10/31/22 08:22 EDT Lab Reportson 09-19-2022 Lab Reports [id number]#1.00C D:127 [facility] Pre-Certification Formon Pre-Certification Form [id number]#1.00C D:127 [facility] Pre-Certification Formon Pre-Certification Form [id number]#1.00C D:127 [facility] Ambulatory Visit Summaryon 1 07-03-2021 Ambulatory Visit Summary HERVE FLORENTINO :1955 Visit Date:05/02/2022 Ambulatory Visit Instructions Your Diagnosis BPH with urinary obstruction Hypogonadism male Impotence Glucosuria Tests Performed Urnls Dip Stick Auto w/o Microscopy POC 46515 Your Care Team Attending Physician - Jayson [...] MOHAN MD Where: [facility] Lab Reportson 05-02-2022 Lab Reports [id number]#1.00C D:127 Normal [facility] Patient Educationon 05-02-20 Patient Education Urology Benign [...] Follow these instructions at home: ? Take edgc-ecw-ympzush and prescription medicines only as told by [...] d (more content not included)... Normal [facility] Urology Office/Clinic Noteon 05-02-2022 Urology Office/Clinic Note [...] take at night. New script sent to [facility]. Inquired about starting Finasteride, recommended trying Flomax [...] that improves levels. New script sent to [facility]. Will follow up in 6 months with [...] Information JAMSHID VILLAVICENCIO, Jayson Rizo, URL [address] [place] [address]- Additional Instructions: 6 mos testosterone level Patient [...] tunnel rele (more content not included)... Normal [facility] Comment on above: Result Comment: Elec tronically Signed By: Jayson MOHAN MD\.br\Date and Time Signed: 05/02/22 08:54 EST\.br\Electronically Co-Signed By: Irma Leonardo\.br\Date and Time Co-Signed: 05/02/22 08:47 EST TESTOSTERONE, TOTALon 2021 Testosterone [Mass/Vol] 229 ng/dL Critically low 264-916 [facility] Comment on above: Result Comment: Adul t male reference interval is based on a population of healthy nonobese males (BMI <30) between 19 and 39 years old. Leticia et.al. JCEM 2017,102;2872-4506. PMID: [id number]. 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 Vitals Vital Signs Recorded: [id number] 08:27AM Heart Rate74, R Radial Xzdxoqrq281, LUE, Sitting Xdpcfhxxv98, LUE, Sitting Height6 ft 2 in Imoabm562 lb 2 oz BMI Vizxfnpdrt53.03 kg/m2 BSA Calculated2.29 Tobacco Useb) No PHQ-2 #1. Over the last 2 weeks have you felt down, depressed or hopeless? (If yes, answer PHQ-9 below)No PHQ-2 #2. Over the last 2 weeks have you felt littl (more content not included)... Normal [email or web address] Lab Reportson 01-13-2022 Lab Reports [id number]#1.00CD :127 Normal [facility] Reports [id number]#1.00CD :127 Normal [facility] GLYCOHEMOGLOBIN A1Con 2021 ADA RECOMMENDATION SEE BELOW Normal [facility] Comment on above: Result Comment: ADA RECOMMENDED LIMIT 4.0 - 6.0 ADA THERAPEUTIC TARGET < 7.0 ACTION SUGGESTED > 7.0 Performed By: #### A 1C #### [facility] [address] [place] [address] Dr. Juan Alberto Carranza Glucose [Mass/Vol] 126 mg/dL Normal [facility] Comment on above: Performed By: #### A 1C #### [facility] [address] [place] [address] Dr. Juan Alberto Carranza HbA1c (Bld) [Mass fraction] 6.0 % Normal 4.5-6.2 [facility] Comment on above: Performed By: #### A 1C #### [facility] [address] [place] [address] Dr. Juan Alberto Carranza LIPID PROFILEon 01-10-2022 CHOL-HDL RATIO NORM SEE BELOW Normal [facility] Comment on above: Result Comment: 3.3 - 4.4 LOW RISK 4.4 - 7.1 AVERAGE RISK 7.1 - 11.0 MODERATE RISK >11.0 HIGH RISK Performed By: #### L IPID, CMP #### [facility] [address] [place] [address] Dr. Juan Alberto Carranza Cholesterol [Mass/Vol] 136 mg/dL Normal <=200 [facility] Comment on above: Performed By: #### L IPID, CMP #### [facility] [address] [place] [address] [address] Juan Alberto Carranza Cholesterol in HDL [Mass/Vol] 62 mg/dL Critically high 40-60 [facility] Comment on above: Performed By: #### L IPID, CMP #### [facility] [address] [place] [address] [address] Juan Alberto Carranza Cholesterol in LDL [Mass/Vol] 57.6 mg/dL Normal [facility] Comment on above: Performed By: #### L IPID, CMP #### [facility] [address] [place] [address] [address] Juan Alberto Carranza Cholesterol.total/C holesterol in HDL [Mass ratio] 2.2 {ratio} Normal [facility] Comment on above: Performed By: #### L IPID, CMP #### [facility] [address] [place] [address] Dr. Juan Alberto Carranza HDL NORMAL > or = 60 mg/dl - LO W CARDIOVASCULAR RISK <40 mg/dl - HIGH CARDIOVASCULAR RISK Normal [facility] Comment on above: Performed By: #### L IPID, CMP #### [facility] [address] [place] [address] [address] Juan Alberto Carranza LDL CALC NORMAL SEE BELOW Normal [facility] Comment on above: Result Comment: <100 mg/dl OPTIMAL 100 - 129 mg/dl NEAR OR ABOVE OPTIMAL 130 - 159 mg/dl BORDERLINE HIGH 160 - 189 mg/dl HIGH >190 mg/dl VERY HIGH Performed By: #### L IPID, CMP #### [facility] [address] [place] [address] [address] Juan Alberto Carranza Triglyceride [Mass/Vol] 82 mg/dL Normal <=150 [facility] Comment on above: Performed By: #### L IPID, CMP #### [facility] [address] [place] [address] [address] Juan Alberto Carranza VLDL CALC 16.4 mg/dL Normal [facility] Comment on above: Performed By: #### L IPID, CMP #### [facility] [address] [place] [address] [address] Juan Alberto Carranza PROF 14(COMP METB)on 022 Albumin [Mass/Vol] 4.0 g/dL Normal 3.4-5.0 [facility] Comment on above: Performed By: #### L IPID, CMP #### [facility] [address] [place] [address] [address] Juan Alberto Carranza Albumin/Globulin [Mass ratio] 1.3 {ratio} Normal [facility] Comment on above: Performed By: #### L IPID, CMP #### [facility] [address] [place] [address] [address] Juan Alberto Carranza ALP [Catalytic activity/Vol] 48 U/L Normal 46-116 [facility] Comment on above: Performed By: #### L IPID, CMP #### [facility] [address] [place] [address] [address] Juan Alberto Carranza ALT [Catalytic activity/Vol] 28 U/L Normal 16-63 [facility] Comment on above: Performed By: #### L IPID, CMP #### [facility] [address] [place] [address] [address] Juan Alberto Carranza Anion gap [Moles/Vol] 13.2 mmol/L Normal [facility] Comment on above: Performed By: #### L IPID, CMP #### [facility] [address] [place] [address] [address] Juan Alberto Carranza AST [Catalytic activity/Vol] 13 U/L Critically low 15-37 [facility] Comment on above: Performed By: #### L IPID, CMP #### [facility] [address] [place] [address] [address] Juan Alberto Carranza Bilirubin [Mass/Vol] 0.6 mg/dL Normal 0.2-1.0 [facility] Comment on above: Performed By: #### L IPID, CMP #### [facility] [address] [place] [address] [address] Juan Alberto Carranza Calcium [Mass/Vol] 8.8 mg/dL Normal 8.5-10.1 [facility] Comment on above: Performed By: #### L IPID, CMP #### [facility] [address] [place] [address] [address] Juan Alberto Carranza Chloride [Moles/Vol] 100 mmol/L Normal 98-107 [facility] Comment on above: Performed By: #### L IPID, CMP #### [facility] [address] [place] [address] Dr. Juan Alberto Carranza CO2 [Moles/Vol] 29.1 mmol/L Normal 21.0-32.0 [facility] Comment on above: Performed By: #### L IPID, CMP #### [facility] [address] [place] [address] Dr. Juan Alberto Carranza Creatinine [Mass/Vol] 0.89 mg/dL Normal 0.70-1.30 [facility] Comment on above: Performed By: #### L IPID, CMP #### [facility] [address] [place] [address] Dr. Juan Alberto Carranza EGFR-AF JORDANIAN >60 Normal >=60 [facility] Comment on above: Performed By: #### L IPID, CMP #### [facility] [address] [place] [address] Dr. Juan Alberto Carranza EGFR-NON AF JORDANIAN >60 Normal >=60 [facility] Comment on above: Performed By: #### L IPID, CMP #### [facility] [address] [place] [address] Dr. Juan Alberto Carranza Globulin (S) [Mass/Vol] 3.0 g/dL Normal [facility] Comment on above: Performed By: #### L IPID, CMP #### [facility] [address] [place] [address] Dr. Juan Alberto Carranza Glucose [Mass/Vol] 134 mg/dL Critically high 74-106 [facility] Comment on above: Performed By: #### L IPID, CMP #### [facility] [address] [place] [address] Dr. Juan Alberto Carranza Potassium [Moles/Vol] 4.3 mmol/L Normal 3.5-5.1 [facility] Comment on above: Performed By: #### L IPID, CMP #### [facility] [address] [place] [address] [address] Juan Alberto Carranza Protein [Mass/Vol] 7.0 g/dL Normal 6.4-8.2 [facility] Comment on above: Performed By: #### L IPID, CMP #### [facility] [address] [place] [address] [address] Juan Alberto Carranza Sodium [Moles/Vol] 138 mmol/L Normal 136-145 [facility] Comment on above: Performed By: #### L IPID, CMP #### [facility] [address] [place] [address] [address] Juan Alberto Carranza Urea nitrogen [Mass/Vol] 17.0 mg/dL Normal 7.0-18.0 [facility] Comment on above: Performed By: #### L IPID, CMP #### [facility] [address] [place] [address] [address] Juan Alberto Carranza Urea nitrogen/Creatinine [Mass ratio] 19.1 mg/mg Normal [facility] Comment on above: Performed By: #### L IPID, CMP #### [facility] [address] [place] [address] [address] Juan Alberto Carranza TESTOSTERONE, TOTALon 2021 Testosterone [Mass/Vol] 321 ng/dL Normal 264-916 [facility] Comment on above: Result Comment: Adul t male reference interval is based on a population of healthy nonobese males (BMI <30) between 19 and 39 years old. Travison, et.al. JCEM 2017,102;7008-1416. PMID: [id number]. Performed By: #### T ESTTOT #### [facility] [address] [place] [address] Dr. Juan Alberto Carranza TESTOSTERONE, TOTALon 2021 Testosterone [Mass/Vol] 360 ng/dL Normal 264-916 [facility] Comment on above: Result Comment: Adul t male reference interval is based on a population of healthy nonobese males (BMI <30) between 19 and 39 years old. Travison, et.al. JCEM 2017,102;9914-4299. PMID: [id number]. Performed By: #### T ESTTOT ####[facility] [address] [place], [place] [address]PpDr. Juan Alberto Carranza CBC AUTO DIFFon 07-13-2021 BASO # 0.0 103/ul Normal 0.0-0.1 [facility] Comment on above: Performed By: #### C BC #### [facility] [address] [address] [address] Juan Alberto Carranza Basophils/100 WBC (Bld) 0.5 % Normal 0.2-2.0 [facility] Comment on above: Performed By: #### C BC #### [facility] [address] [address] [address] Juan Alberto Carranza EO # 0.1 103/ul Normal 0.0-0.7 [facility] Comment on above: Performed By: #### C BC #### [facility] [address] [place] [address] Dr. Juan Alberto Carranza Eosinophils/100 WBC (Bld) 1.8 % Normal 0.9-7.0 [facility] Comment on above: Performed By: #### C BC #### [facility] [address] [address] [address] Juan Alberto Carranza Erythrocyte distribution width (RBC) [Ratio] 13.5 % Normal 11.0-15.0 [facility] Comment on above: Performed By: #### C BC #### [facility] [address] [address] [address] Juan Alberto Carranza Hematocrit (Bld) [Volume fraction] 40.4 % Critically low 42.0-54.0 [facility] Comment on above: Performed By: #### C BC #### [facility] [address] [address] [address] Juan Alberto Carranza Hemoglobin (Bld) [Mass/Vol] 13.9 g/dL Critically low 14.0-18.0 [facility] Comment on above: Performed By: #### C BC #### [facility] [address] [address] [address] Juan Alberto Carranza IG # 0.01 10e3/ul Normal 0.00-0.03 [facility] Comment on above: Performed By: #### C BC #### [facility] [address] [place] [address] Dr. Juan Alberto Carranza IG % 0.2 % Normal 0.0-0.5 [facility] Comment on above: Performed By: #### C BC #### [facility] [address] [place] [address] Dr. Juan Alberto Carranza LYMPH # 0.9 103/ul Critically low 1.2-3.8 [facility] Comment on above: Performed By: #### C BC #### [facility] [address] [place] [address] Dr. Juan Alberto Carranza Lymphocytes/100 WBC (Bld) 20.5 % Normal 20.5-60.0 [facility] Comment on above: Performed By: #### C BC #### [facility] [address] [place] [address] Dr. Juan Alberto Carranza MANUAL DIFF REQ NO Normal [facility] Comment on above: Performed By: #### C BC #### [facility] [address] [place] [address] Dr. Juan Alberto Carranza MCH (RBC) [Entitic mass] 32.3 pg Normal 25.9-34.0 [facility] Comment on above: Performed By: #### C BC #### [facility] [address] [place] [address] Dr. Juan Alberto Carranza MCHC (RBC) [Mass/Vol] 34.4 g/dL Normal 29.9-35.2 [facility] Comment on above: Performed By: #### C BC #### [facility] [address] [place] [address] Dr. Juan Alberto Carranza MCV (RBC) [Entitic vol] 93.7 fL Normal 80.0-94.0 [facility] Comment on above: Performed By: #### C BC #### [facility] [address] [place] [address] Dr. Juan Alberto Carranza MONO # 0.3 103/ul Normal 0.3-0.8 [facility] Comment on above: Performed By: #### C BC #### [facility] [address] [address] [address] Juan Alberto Carranza Monocytes/100 WBC (Bld) 7.0 % Normal 1.7-12.0 [facility] Comment on above: Performed By: #### C BC #### [facility] [address] [address] [address] Juan Alberto Carranza NEUT # 3.1 103/ul Normal 1.4-6.5 [facility] Comment on above: Performed By: #### C BC #### [facility] [address] [address] [address] Juan Alberto Carranza Neutrophils/100 WBC (Bld) 70.0 % Normal 43.0-75.0 [facility] Comment on above: Performed By: #### C BC #### [facility] [address] [place] [address] Dr. Juan Alberto Carranza Platelet mean volume (Bld) [Entitic vol] 11.3 fL Normal 9.5-13.5 [facility] Comment on above: Performed By: #### C BC #### [facility] [address] [address] [address] Juan Alberto Carranza PLT 141 103/ul Critically low 150-450 [facility] Comment on above: Performed By: #### C BC #### [facility] [address] [place] [address] Dr. Juan Alberto Carranza RBC 4.31 106/ul Critically low 4.70-6.10 [facility] Comment on above: Performed By: #### C BC #### [facility] [address] [address] [address] Juan Alberto Carranza WBC 4.4 103/ul Normal 4.0-11.0 [facility] Comment on above: Performed By: #### C BC #### [facility] [address] [place] [address] Dr. Juan Alberto Carranza LIPID PROFILEon 07-13-2021 CHOL-HDL RATIO NORM SEE BELOW Normal [facility] Comment on above: Result Comment: 3.3 - 4.4 LOW RISK 4.4 - 7.1 AVERAGE RISK 7.1 - 11.0 MODERATE RISK >11.0 HIGH RISK Performed By: #### L IPID #### [facility] [address] [address] [address] Juan Alberto Carranza Cholesterol [Mass/Vol] 139 mg/dL Normal <=200 [facility] Comment on above: Performed By: #### L IPID #### [facility] [address] [address] [address] Juan Alberto Carranza Cholesterol in HDL [Mass/Vol] 72 mg/dL Normal [facility] Comment on above: Performed By: #### L IPID #### [facility] [address] [address] [address] Juan Alberto Carranza Cholesterol in LDL [Mass/Vol] 62.4 mg/dL Normal [facility] Comment on above: Performed By: #### L IPID #### [facility] [address] [place] [address] Dr. Juan Alberto Carranza Cholesterol.total/C holesterol in HDL [Mass ratio] 1.9 {ratio} Normal [facility] Comment on above: Performed By: #### L IPID #### [facility] [address] [address] [address] Juan Alberto Carranza HDL NORMAL > or = 60 mg/dl - LO W CARDIOVASCULAR RISK <40 mg/dl - HIGH CARDIOVASCULAR RISK Normal [facility] Comment on above: Performed By: #### L IPID #### [facility] [address] [address] [address] Juan Alberto Carranza LDL CALC NORMAL SEE BELOW Normal [facility] Comment on above: Result Comment: <100 mg/dl OPTIMAL 100 - 129 mg/dl NEAR OR ABOVE OPTIMAL 130 - 159 mg/dl BORDERLINE HIGH 160 - 189 mg/dl HIGH >190 mg/dl VERY HIGH Performed By: #### L IPID #### [facility] [address] [address] [address] Juan Alberto Carranza Triglyceride [Mass/Vol] 23 mg/dL Normal <=150 [facility] Comment on above: Performed By: #### L IPID #### [facility] [address] [address] [address] Juan Alberto Carranza VLDL CALC 4.6 mg/dL Normal [facility] Comment on above: Performed By: #### L IPID #### [facility] [address] [place] [address] Dr. Juan Alberto Carranza PROF 14(COMP METB)on 022 Albumin [Mass/Vol] 4.0 g/dL Normal 3.5-5.0 [facility] Comment on above: Performed By: #### C MP #### [facility] [address] [place] [address] Dr. Juan Alberto Carranza Albumin/Globulin [Mass ratio] 1.3 {ratio} Normal [facility] Comment on above: Performed By: #### C MP #### [facility] [address] [place] [address] Dr. Juan Alberto Carranza ALP [Catalytic activity/Vol] 60 U/L Normal 38-126 [facility] Comment on above: Performed By: #### C MP #### [facility] [address] [place] [address] Dr. Juan Alberto Carranza ALT [Catalytic activity/Vol] 22 U/L Normal 21-72 [facility] Comment on above: Performed By: #### C MP #### [facility] [address] [place] [address] Dr. Juan Alberto Carranza Anion gap [Moles/Vol] 9.4 mmol/L Normal [facility] Comment on above: Performed By: #### C MP #### [facility] [address] [place] [address] Dr. Juan Alberto Carranza AST [Catalytic activity/Vol] 12 U/L Critically low 17-59 [facility] Comment on above: Performed By: #### C MP #### [facility] [address] [place] [address] Dr. Juan Alberto Carranza Bilirubin [Mass/Vol] 0.6 mg/dL Normal 0.2-1.3 [facility] Comment on above: Performed By: #### C MP #### [facility] [address] [place] [address] Dr. Juan Alberto Carranza Calcium [Mass/Vol] 8.9 mg/dL Normal 8.4-10.2 [facility] Comment on above: Performed By: #### C MP #### [facility] [address] [address] [address] Juan Alberto Carranza Chloride [Moles/Vol] 103 mmol/L Normal 98-107 [facility] Comment on above: Performed By: #### C MP #### [facility] [address] [address] [address] Juan Alberto Carranza CO2 [Moles/Vol] 28.8 mmol/L Normal 22.0-30.0 [facility] [place] Comment on above: Performed By: #### C MP #### [facility] [address] [place] [address] Dr. Juan Alberto Carranza Creatinine [Mass/Vol] 0.83 mg/dL Normal 0.66-1.25 [facility] Comment on above: Performed By: #### C MP #### [facility] [address] [place] [address] Dr. Juan Alberto Carranza EGFR-AF JORDANIAN >60 Normal >=60 [facility] [place] Comment on above: Performed By: #### C MP #### [facility] [address] [place] [address] Dr. Juan Alberto Carranza EGFR-NON AF JORDANIAN >60 Normal >=60 [facility] Comment on above: Performed By: #### C MP #### [facility] [address] [place] [address] Dr. Juan Alberto Carranza Globulin (S) [Mass/Vol] 3.2 g/dL Normal [facility] Comment on above: Performed By: #### C MP #### [facility] [address] [place] [address] Dr. Juan Alberto Carranza Glucose [Mass/Vol] 135 mg/dL Critically high 74-106 [facility] Comment on above: Performed By: #### C MP #### [facility] [address] [place] [address] Dr. Juan Alberto Carranza Potassium [Moles/Vol] 5.2 mmol/L Critically high 3.4-5.0 [facility] Comment on above: Performed By: #### C MP #### [facility] [address] [place], [place] [address] Dr. Juan Alberto Carranza Protein [Mass/Vol] 7.2 g/dL Normal 6.1-8.2 [facility] Comment on above: Performed By: #### C MP #### [facility] [address] [place], [place] [address] Dr. Juan Alberto Carranza Sodium [Moles/Vol] 136 mmol/L Critically low 137-145 [facility] Comment on above: Performed By: #### C MP #### [facility] [address] [place], [place] [address] Dr. Juan Alberto Carranza Urea nitrogen [Mass/Vol] 17.0 mg/dL Normal 9.0-20.0 [facility] Comment on above: Performed By: #### C MP #### [facility] [address] [place], [place] [address] Dr. Juan Alberto Carranza Urea nitrogen/Creatinine [Mass ratio] 20.5 mg/mg Normal [facility] Comment on above: Performed By: #### C MP #### [facility] [address] [place], [place] [address] Dr. Juan Alberto Carranza SED RATE [facility] 2021 SED RATE 2 mm/hr Normal <=20 [facility] Comment on above: Performed By: #### S EDR #### [facility] [address] [place], [place] [address] Dr. Juan Alberto Carranza Office Visit (Cardiology)on [...] Weight Tips; Status:Complete - Retrospective Authorization; Done: [id number] SocHx: Former smoker Tobacco Use Screening; Status:Complete; Done: [id number] Patient Instructions By signing my name below, 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 4. Hyperlipidemia, on statin therapy, under control. Lipid profile was requested from PCP 5. Overweight. Weight has dropped 15 pounds from last year which is encouraging 6. Hypertension, presently under control. 7. Diabetes, under control., Lab data from PCP were requested [facility] Current Meds Medication NameInstruction Aspirin 81 MG [...] negative for complaint. Vitals Vital Signs Recorded: [id number] 03:40PM Heart Rate80, R Radial Rlqrmwdu903, RUE, Sitting Aqdwlpcyr72, RUE, Sitting Height6 ft 2 in Upfckr309 lb 9.6 oz BMI Bkelsrubyp93.61 kg/m2 BSA Calculated2.31 Tobacco Useb) No Fall [...] by:VENICE Maeigned by:Jair Olivia MD07/06/17inal result Normal [facility] Vital Signs Date Time Vital Sign Value Performing Clinician Facility 06-18-2023 08:39-0500 Body height 185.4 cm Pattie Gale MD Work Phone: [facility] 06-18-2023 08:39-0500 Body mass index (BMI) [Ratio] 29.82 kg/m2 Pattie Gale MD Work Phone: [facility] 06-18-2023 08:39-0500 Body weight 102.51 kg Pattie Gale MD Work Phone: [facility] 06-18-2023 08:39-0500 Diastolic blood pressure 76 mm[Hg] Pattie Gale MD Work Phone: [facility] 06-18-2023 08:39-0500 Heart rate 62 /min Pattie Gale MD Work Phone: [facility] 06-18-2023 08:39-0500 Systolic blood pressure 130 mm[Hg] Pattie Gale MD Work Phone: [facility] 03-27-2022 16:00-0500 Body height Aryan Garcia Other [employer] Other 03-27-2022 16:00-0500 Body mass index (BMI) [Ratio] 29.81 kg/m2 Aryan Garcia Other [employer] Other 03-27-2022 16:00-0500 Body temperature 96.9 [degF] Aryan Garcia Other [facility] [employer] Other 03-27-2022 16:00-0500 Body weight 102.51 kg Aryan Garcia Other [employer] Other 03-27-2022 16:00-0500 Diastolic blood pressure 70 mm[Hg] Aryan Garcia Other [employer] Other 03-27-2022 16:00-0500 SaO2% (BldA) [Mass fraction] 100 % Aryan Garcia Other [employer] Other 03-27-2022 16:00-0500 Systolic blood pressure 128 mm[Hg] Aryan Garcia Other [employer] Other Encounters Encounter Date Encounter Type Care Provider Facility Start: 11-02-2023 [facility] Start: 06-18-2023 End: 06-18-2023 Office outpatient visit 25 minutes Pattie Gale MD Work Phone: [facility] Comment on above: ASCVD (arteriosclero tic cardiovascular disease) (Primary Dx); Peripheral vascular disease ([facility]); Essential hypertension; Hyperlipidemia, unspecified hyperlipidemia type; Other specified diabetes mellitus without complication, without long-term current use of insulin ([facility]); Former smoker; Overweight Start: 03-17-2023 End: 03-17-2023 ambulatory Shanice Bailey Facility:[facility] Start: 01-05-[address] Pattie Gale Facility:[id number] Start: 10-31-2022 End: 11-01-2022 ambulatory Jayson MOHAN Facility:[facility] Start: 10-08-2022 Office outpatient vi sit 25 minutes Josh Ospina Work Phone: [facility] Work Phone: Start: 08-20-2022 Rx Renewal Josh escobedo Work Phone: [facility] [address] DO Work Phone: Start: 05-02-2022 End: 05-03-2022 ambulatory Jayson MOHAN Facility: [facility] Start: 04-26-2022 End: 04-27-[address] JOSH OSPINA Facility:[facility] Start: 03-27-2022 End: 03-27-2022 Patient encounter procedure DO Josh Ospina Work Phone: [facility] Start: 03-27-2022 End: 03-27-2022 ambulatory DO Josh Ospina Work Phone: [facility] Work Phone: Start: 03-27-2022 Office outpatient vi sit 25 minutes Aryan [facility] Start: 02-04-[address] Pattie Gale Facility: Start: 01-10-2022 End: 01-11-[address] JOSH OSPINA Facility:[facility] Start: 12-03-2021 Rx Renewal Josh Sanchez Asim ng Work Phone: [facility] [address] DO Work Phone: Start: 11-26-2021 Rx Renewal Joshjose r Dailey ng Work Phone: [facility] [address] DO Work Phone: Start: 11-19-2021 Rx Renewal Josh Sanchez Lararinku ng Work Phone: [facility] [address] DO Work Phone: Start: 10-26-2021 End: 10-27-[address] JOSH OSPINA Facility:[facility] Start: 07-24-2021 End: 07-25-[address] SAHNICE BAILEY Facility:[facility] Start: 07-13-2021 End: 07-14-[address] SHANICE BAILEY Facility:[facility] Start: 06-04-[address] JOSH OSPINA Fac ility:[facility] Start: 04-23-2021 ambulatory Josh Brand acility: Start: 07-06-2017 End: 07-09-2017 Ambulatory [facility] Procedures Date Procedure Procedure Detail Performing Clinician Start: 04-26-[address] PINO MOHAN Comment on above: Performed By: #### P SAD #### [facility] [address] [place] [address] Dr. Juan Alberto Carranza Start: 07-06-2017 Mri [...] DTaP/Tdap/Td Vaccines (2 - Td or Tdap) [facility] Start: 05-04-2024 Urine screening for protein Diabetes: Urine Protein Screening [facility] Start: 04-07-2024 Screening for malignant neoplasm of colon [facility] Start: 03-22-2024 End: 03-22-2024 Patient encounter procedure 03/22/2024 8:40 AM EST Office Visit [facility] [address] [facility] [address] [place] [address] Pattie Gale MD [address] [facility] [address] [place] [address] [facility] Start: 06-18-2023 End: 06-18-2024 Alanine aminotransferase [Enzymatic activity/volume] in Serum or Plasma by With P-5'-P Alanine Aminotransferase Lab Routine ASCVD (arteriosclerotic cardiovascular disease) Peripheral vascular disease (CMS/HCC) Essential hypertension Hyperlipidemia, unspecified hyperlipidemia type Other specified diabetes mellitus without complication, without long-term current use of insulin (CMS/HCC) Expected: 06/18/2023 (Approximate), Expires: 06/18/2024 [facility] Work Phone: Comment on above: Expected: 06/18/2023 (Approximate), Expi res: 06/18/2024 Start: 06-18-2023 End: 06-18-2024 Aspartate aminotransferase [Enzymatic activity/volume] in Serum or Plasma by With P-5'-P Aspartate Aminotransferase Lab Routine ASCVD (arteriosclerotic cardiovascular disease) Peripheral vascular disease (CMS/HCC) Essential hypertension Hyperlipidemia, unspecified hyperlipidemia type Other specified diabetes mellitus without complication, without long-term current use of insulin (CMS/HCC) Expected: 06/18/2023 (Approximate), Expires: 06/18/2024 [facility] Work Phone: Comment on above: Expected: 06/18/2023 (Approximate), Expi res: 06/18/2024 Start: 06-18-2023 End: 06-18-2024 Basic metabolic 2000 panel - Serum or Plasma Basic Metabolic Panel Lab Routine ASCVD (arteriosclerotic cardiovascular disease) Peripheral vascular disease (CMS/HCC) Essential hypertension Hyperlipidemia, unspecified hyperlipidemia type Other specified diabetes mellitus without complication, without long-term current use of insulin (CMS/HCC) Expected: 06/18/2023 (Approximate), Expires: 06/18/2024 [facility] Work Phone: Comment on above: Expected: 06/18/2023 (Approximate), Expi res: 06/18/2024 Start: 06-18-2023 End: 06-18-2024 CBC panel - Blood by Automated count CBC Lab Routine ASCVD (arteriosclerotic cardiovascular disease) Peripheral vascular disease (CMS/HCC) Essential hypertension Hyperlipidemia, unspecified hyperlipidemia type Other specified diabetes mellitus without complication, without long-term current use of insulin (CMS/HCC) Expected: 06/18/2023 (Approximate), Expires: 06/18/2024 [facility] Work Phone: Comment on above: Expected: 06/18/2023 (Approximate), Expi res: 06/18/2024 Start: 06-18-2023 End: 06-18-2024 Lipid 1996 panel - Serum or Plasma Lipid Panel Lab Routine ASCVD (arteriosclerotic cardiovascular disease) Peripheral vascular disease ([facility]) Essential hypertension Hyperlipidemia, unspecified hyperlipidemia type Other specified diabetes mellitus without complication, without long-term current use of insulin ([facility]) Expected: 06/18/2023 (Approximate), Expires: 06/18/2024 [facility] Work Phone: Comment on above: Expected: 06/18/2023 (Approximate), Expi res: 06/18/2024 Start: 06-18-2023 FUV, Provider: Pattie Gale, Status: Pen, Time: 9:00 AM FUV, Provider: Pattie Gale, Status: Pen, Time: 9:00 AM [facility] Work Phone: Start: 01-16-2023 COVID-19 Vaccine ( season) COVID-19 Vaccine ( season) [facility] Start: 01-05-2023 AOILIVC, Provider: [facility] ULTRASOUND 01,[id number], Status: Pen, Time: 7:45 AM [facility], Provider: [facility]ESE [facility]TR[facility]OUND 01,[id number], Status: Pen, Time: 7:45 AM [facility] Work Phone: Start: 10-08-2022 FUV, Provider: Pattie Gale, Status: Pen, Time: 8:40 AM FUV, Provider: Pattie Gale, Status: Pen, Time: 8:40 AM [facility] DO Work Phone: Start: 02-04-2022 FUV, Provider: Pattie Gale, Status: Pen, Time: 8:30 AM FUV, Provider: Pattie Gale, Status: Pen, Time: 8:30 AM [facility] 250 DO Work Phone: Start: 10-19-1973 Hepatitis C screening Hepatitis C Screening [facility] Start: 10-19-1965 Diabetic foot examination Diabetes: Foot Exam [facility] Start: 10-19-1965 Glaucoma screening Diabetes: Retinopathy Screening [facility] Start: 1955 Hemoglobin A1c measurement Diabetes: Hemoglobin A1C [facility] Start: 1955 Lipid panel Lipid Panel [facility] Start: 1955 Medicare Annual Wellness Visit Medicare Annual Wellness Visit (AWV) [facility] Start: 1955 Screening for malignant neoplasm of colon [facility] Immunizations Immunization Date Immunization Notes Care Provider Rahel rice 04-14-2022 Prevnar 20 0.5 ML Intramuscular Suspension Prefilled Syringe Josh Sanchez [employer] Work Phone: [facility] Work Phone: 02-18-2021 Pfizer-BioNTech COVI D-19 Vacc 30 MCG/0.3ML Intramuscular Suspension Josh Daileyng Work Phone: [facility] 08-08-2020 Pfizer-BioNTech COVI D-19 Vacc 30 MCG/0.3ML Intramuscular Suspension Josh Bermudezlong Work Phone: [facility] 250 DO Work Phone: 08-05-2020 Pfizer Purple Cap SARS-CoV-2 Pattie Gale MD Work Phone: [facility] Work Phone: 07-18-2020 Moderna COVID-19 Vac cine 100 MCG/0.5ML Intramuscular Suspension Josh Bermudezlong Work Phone: [facility] 250 DO Work Phone: 07-18-2020 Pfizer-BioNTech COVI D-19 Vacc 30 MCG/0.3ML Intramuscular Suspension Josh Bermudezlong Work Phone: [place] [address] DO Work Phone: 05-08-2020 pneumococcal polysaccharide vaccine, 23 valent Josh G [employer] Work Phone: [facility] 02-16-2020 influenza virus vacc ine, unspecified formulation Josh G Furlong Work Phone: [place] [address] DO Work Phone: 02-16-2020 influenza, injectabl e, quadrivalent, preservative free Pattie Gale MD Work Phone: [facility] Work Phone: 06-29-2019 zoster vaccine recombinant Josh G Bardwell Work Phone: [place] [address] DO Work Phone: 04-28-2019 zoster vaccine recombinant [facility] Work Phone: [place] [id number] DO Work Phone: 03-18-2019 influenza virus vacc ine, unspecified formulation Josh G Bardwell Work Phone: [place] [address] DO Work Phone: 03-02-2019 influenza, injectabl e, quadrivalent, contains preservative [facility] Work Phone: [place] [address] DO Work Phone: 04-13-2018 Influenza, injectabl e, Madin Myla Canine Kidney, preservative free, quadrivalent [facility] Work [facility]: [place] [address] DO Work Phone: 03-18-2018 influenza virus vacc ine, unspecified formulation Josh G Furlong Work Phone: [place] [address] DO Work Phone: 04-20-2017 influenza, injectabl e, quadrivalent, preservative free [facility] Work Phone: [place] [address] DO Work Phone: 03-31-2017 influenza, injectabl e, quadrivalent, preservative free Josh Bermudezng Work Phone: [place] [address] DO Work Phone: 03-18-2017 influenza virus vacc ine, unspecified formulation Josh Sanchez Bardwell Work Phone: [place] [address] DO Work Phone: 02-16-2016 influenza virus vacc ine, unspecified formulation Josh Sanchez Bardwell Work Phone: [place] [address] DO Work Phone: 03-18-2015 influenza, seasonal, injectable Josh Sanchez Bardwell Work Phone: [place] [address] DO Work Phone: 02-15-2015 influenza virus vacc ine, unspecified formulation Josh Sanchez Bardwell Work Phone: [place] [address] DO Work Phone: 07-04-2014 pneumococcal conjuga te vaccine, 13 valent Josh Sanchez Bardwell Work Phone: [place] [address] DO Work Phone: 07-04-2014 tetanus toxoid, redu leonel diphtheria toxoid, and acellular pertussis vaccine, adsorbed Josh G Bardwell Work Phone: [place] [address] DO Work Phone: 02-22-2014 influenza virus vacc ine, whole virus Josh Sanchez Bardwell Work Phone: [place] [address] DO Work Phone: 07-18-2013 influenza virus vacc ine, unspecified formulation Josh Daileyng Work Phone: [facility] 250 DO Work Phone: 03-18-2009 influenza virus vacc ine, unspecified formulation Josh Ospina Work Phone: [facility] 250 DO Work Phone: influenza virus vacc ine, unspecified formulation Josh Daileyng Work Phone: [place] [address] DO Work Phone: Comment on above: [id number] [id number] Payers Date Payer Category Payer Medicare [id number] 2022 Self-pay [id number] 2020 Medicare [id number] 1959 Medicare [id number] 1959 Self-pay [id number] 1959 Unknown [id number] 1955 Unknown [id number] .16. [id number] 1955 Unknown [id number] .16. 840.1.156552.3.579.2.356 1955 Unknown [id number] 2.16.84 0.1.378221.3.579.2.593 1955 Unknown [id number] 2.16.84 0.1.319314.3.579.2.593 1955 Unknown [id number] 2.16.84 0.1.320329.3.579.2.593 1955 Unknown [id number] 2.16.84 0.1.576687.3.579.2.593 1955 Unknown [id number] 2.16.84 0.1.776823.3.579.2.593 1955 Unknown [id number] 2.16.84 0.1.203075.3.579.2.593 1955 Unknown [id number] 2.16.84 0.1.790728.3.579.2.593 1955 Unknown [id number] 2.16.84 0.1.196874.3.579.2.593 1955 Unknown [id number] 2.16.8 40.1.376021.3.579.2.727 1955 Unknown [id number] 2.16.8 40.1.664900.3.579.2.727 1955 Unknown [id number] 2.16.8 40.1.758587.3.579.2.727 1955 Unknown [id number] 2.16.8 40.1.186190.3.579.2.1068 Unknown Unknown [id number] 2.16.8 40.1.570232.3.579.2.531 Unknown [id number] 2.16.8 40.1.705993.3.579.2.531 Social History Date Type Detail Facility Start: 05-26-2023 Alcohol use Alcohol use -[facility] 250 DO Work Phone: Comment on above: 1-2 cups of coffee d aily; Start: 05-26-2023 Sex Assigned At N [facility] Other Start: 04-08-2019 End: 05-26-2023 Tobacco smoking status NDIS Ex-smoker (finding) [facility] Start: 1955 Sex Assigned At Male F [facility] History of tobacco use Current smoker [facility] Work Phone: History of tobacco use Cigarette Smoker [facility] Work Phone: Start: 05-26-2023 Tobacco use and exposure Smokeless tobacco non-user [facility] Work Phone: Start: 06-18-2023 Alcohol intake Current drinke r of alcohol (finding) [facility] Work Phone: Start: 1955 Sex Assigned At Not on file [facility] Work Phone: Start: 06-08-2023 End: 06-18-2023 Exposure to SARS-CoV-2 (event) Not sure [facility] History of Present illness Narrative 06-18-2023 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 documented in this encounter [facility] Work Phone: Instructions 06-18-2023 Patient Instructions [...] of your visit. documented in this encounter [facility] Work Phone: Evaluation note 03-27-2022 Note [...] sleepiness, or poor response to treatment. . [facility] Other Clinical Note 07-24-2021 Note Date & [...] authenticated by: EILEEN QURESHI Date: 2021-07-24 17:01 [facility] Evaluation note Note Date & Type Note Facility Evaluation note No assessment information availa [facility] Work Phone: Evaluation note Note Date [...] to health Overweight documented in this encounter [facility] Work Phone: History general Narrative - Reported Note Date & Type Note Facility History general Narrative - Reported Type Medical History ROCK (obstructive sleep apnea) Medical History CAD in [place] artery Surgical History heart stent Surgical History left hip replacement [facility] Other Reason for referral (narrative) Consultation (Routine) [...] Follow Up In Cardiology Pattie Gale MD [address] [place] [address], [address] [address] Pattie Gale MD [address] [place] [address] 2, [address] [address] Referral ID Status Reason Start Date Expiration Date V isits Requested Visits Authorized [id number] Authorized 06/18/2023 06/17/2024 1 1 [facility] Work Phone: Summary Purpose Family History [...] with tobacco use. 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, currently has stable [...] which is scheduled * Pattie Gale MD, [facility] Additional Source Comments (unrecognized sect ion and content) No Status Records FoundNo Status Records FoundNo Status Records FoundNo Status Records FoundNo Status Records FoundNo Status Records FoundNo Status Records Found INFORMATION SOURCE (unrecogn ized section and content) DATE CREATED AUTHOR 11/06/2017 Darnel[facility]ylon AlmendarezYousifashley wong DATE CREATED AUTHOR AUTHOR'S ORGANIZ ATION 02/16/2022 [facility] DATE CREATED AUTHOR AUTHOR'S ORGANIZ ATION 02/16/2022 [email or web address] DATE CREATED AUTHOR AUTHOR'S ORGANIZ ATION 05/08/2022 [facility] DATE CREATED AUTHOR AUTHOR'S ORGANIZ ATION 11/02/2022 [facility] DATE CREATED AUTHOR AUTHOR'S ORGANIZ ATION 01/07/2023 [facility] DATE CREATED AUTHOR AUTHOR'S ORGANIZ ATION 03/25/2023 [facility] Care Teams (unrecognized sec tion and content) Team Status: Inactive Member Role Status Dates Josh Ospina DO Primary Care Provider Active Aryan Garcia MD Attending Provider Active Team Status: Active Member Role Status Dates Josh Ospina DO Primary Care Provider Active Licensed Chemical Spray Technician Relationship Specialty Start Date End Date Josh Ospina DO [address] [place] [address] PCP - General 05/18/99 Goals (unrecognized section [...] BE BASED ON THE PRIMARY CLINICAL RECORDS. [employer] provides no warranty or guarantee of the accuracy or completeness of information in this document.
[2023-06-30 01:07] LABS: Free Testosterone(Direct) 7.9 pg/mL (6.6-18.1); Testosterone 329 ng/dL (264-916)
== END 2023-06-19 07:13 | disposition home or self-care (01) ==
LOC: LAB 07:14
PROVIDERS: PCP Family Medicine; Visit Provider Urology
DX: N40.1 Benign prostatic hyperplasia with lower urinary tract symptoms (principal); E29.1 Testicular hypofunction; R81 Glycosuria; N52.9 Male erectile dysfunction, unspecified
CPT/HCPCS: 36415; 84402; 84403

== ENCOUNTER 2023-12-17 07:45 | Outpatient (OUT) | payer MEDICARE, OTHER, SELFPAY ==
--- OUTSIDE RECORDS SUMMARY | 2023-12-17 07:53 | XMS_ITS | CCD ---
Author Organization [facility] ion [facility] Care Team Providers Care Needle Leader Name Role Phone EILEEN PURVIS Unavailable Unavai JOSH Farrar Unavailable Unavailable Josh Ospina Unavailable Unavailable Unavailable Unavailable Unavailable Baljinder, Dr. Jade Sanz Attending Shantel vailable Janell, Josh Willy Primary Care Unavailab le Gale, Dr. Jade Sanz Referring Shantel vailable LaraJosh escobedo Willy Primary Care Unavailab le Gale, Dr. Jade Sanz Referring Shantel vailable Gale, Dr. Jade Sanz Attending Shantel ildable Aryan Garcia Unavailable LaraDO Josh escobedo Primary Care Provider [phone] MD Aryan Garcia Attending Provider [phone] DR SHADY BREEN Attending Unavailable JANELL, DR JOSH Sanchez Primary Care Unavailable FURLONG, DR JOSH Sanchez Consulting Unavailable JAMSHID, DR CARUSO Admitting Unavailable DR SHADY BREEN Consulting Unavailable FURLOGREGG, DR JOSH Sanchez Primary Care Unavailable FURLONG, DR JOSH Sanchez Consulting Unavailable FURLONG, DR JOSH Sanchez Attending Unavailable FURLOGREGG, DR JOSH Sanchez Admitting Unavailable FURLONG, DR JOSH Sanchez Primary Care Unavailable FURLONG, DR JOSH Sanchez Consulting Unavailable FURLOGREGG, DR JOSH Sanchez Attending Unavailable FURLONG, DR JOSH Sanchez Admitting Unavailable FURLOGREGG, DR JOSH Sanchez Primary Care Unavailable MISC, [...] FURLONG, DR JOSH Sanchez Primary Care Unavailable BREEN, DR CARUSO Consulting Unavailable BREEN, DR CARUSO Attending Unavailable BREEN, DR CARUSO Admitting Unavailable BAILEY, DR PRASAD Consulting Unavailable Gale, Dr. Jade Sanz Attending Shantel vailable Furlong, Dr. Josh Aguilera Primary Care Unava ilable Bailey, Shanice Admitting Unavailable Bailey, Shanice Attending Unavailable Furlong, Josh [facility] Care Unavailable Aryan Garcia Attending Unavailable Furlong, Josh [facility] Care Unavailable Aryan Garcia Admitting Unavailable Furlong Josh GONGORA Primary Care Provider FurJosh alvarado DO Primary Care Provider [phone] JOSH OSPINA Attending Unavailable FURLONG, JOSH Sanchez Referring Unavailable FURLONG, JOSH Sanchez Primary Care Unavailable FURLONG, JOSH Sanchez Attending Unavailable FURLONG, JOSH Sanchez Referring Unavailable FURLONG, JOSH Sanchez Primary Care Unavailable Shady BREEN Attending Unavailable BREENShady Attending Unavailable GALEJADE MONREAL Attending Unavailable FURLONGJOSH Primary Care Unavailab le Allergies Allergy Classification Reported Allergen(s) Allergy Type Date of Onset Reaction(s) Facility (12 sources) Ticagrelor; Translations: [Brilinta TABS] Drug Allergy 2 [facility] (2 sources) Ticagrelor; Translations: [TICAGRELOR] Drug Allergy 2 [facility] (1 source) Bee/Wasp/Ant venom; Translations: [Bee Stings] Propensity to adverse reactions (disorder) [facility] (1 source) No Known Medication Allergies; Translations: [No Known Medication Allergies] Propensity to adverse reactions (disorder) [facility] Rep[facility] Medications Current Medications Medication Drug Class(es) Dates Sig (Normalized) Sig (Original) aspirin 81 mg delayed release oral tablet (11 sources) Platelet Aggregation Inhibitor, Nonsteroidal Anti-inflammatory Drug Start: 04-08-2019 End: 06-25-2023 take 1 tablet by mouth once daily Aspirin (Aspir-81) 81 mg Tablet,Delayed Release (Dr/Ec) Active 1 TAB PO Daily April 08, 2019 12:00am Start: 04-08-2019 End: 04-08-2019 take 325 mg by mouth once daily Aspirin Discontinued 325 MG PO Daily April 08, 2019 12:00am April 08, 2019 11:19am Aspirin Active clopidogrel 75 mg oral tablet (14 sources) P2Y12 Platelet Inhibitor Start: 04-08-2019 take 1 tablet by mouth in the morning clopidogreL (PLAVIX) 75 mg tablet Take 1 tablet (75 mg total) by mouth in the morning. 0 03/07/2022 Active Clopidogrel Bisu lfate Active dapagliflozin 10 mg oral tablet (4 sources) Sodium-Glucose Cotransporter 2 Inhibitor Start: 06-26-2023 take 1 tablet by mouth in the morning dapagliflozin propanediol (FARXIGA) 10 mg tablet Take 1 tablet (10 mg total) by mouth in the morning. 30 tablet 5 06/26/2023 Active empagliflozin 10 mg oral tablet (6 sources) Sodium-Glucose Cotransporter 2 Inhibitor Start: 06-15-2020 End: 06-18-2023 take 1 tablet by mouth once daily empagliflozin (Jardiance) 10 mg Take 1 tablet (10 mg) by mouth once daily. 0 06/15/2020 06/18/2023 Discontinued (Therapy completed) fluticasone propionate 0.05 mg/actuat metered dose nasal spray (6 sources) Corticosteroid fluticasone propionate (FLONASE) 50 mcg/actuation nasal spray fluticasone propionate 50 mcg/actuation nasal spray,suspension 0 Active hydroxychloroquine sulfate 200 mg oral tablet (13 sources) Antimalarial, Antirheumatic Agent Start: 04-08-2019 take 1 tablet by mouth in the morning, then take 1 tablet by mouth at bedtime hydrOXYchloroQUINE (PLAQUENIL) 200 mg tablet Take 1 tablet (200 mg total) by mouth in the morning and 1 tablet (200 mg total) before bedtime. 0 03/01/2022 Active metFORMIN hydrochloride 500 mg oral tablet (14 sources) Biguanide Start: 03-13-2020 take 2 tablets by mouth twice daily at mealtime metFORMIN (GLUCOPHAGE) 500 mg tablet take 2 tablets by mouth twice a day with food 360 tablet 3 04/21/2023 Active Start: 04-08-2019 take 500 mg by mouth twice naldo ly Metformin Active 500 MG PO Twice daily April 08, 2019 12:00am Metformin Active nitroglycerin 0.4 mg sublingual tablet (6 sources) Nitrate Vasodilator nitroglyceri n (NITROSTAT) 0.4 MG SL tablet nitroglycerin 0.4 mg sublingual tablet 0 Active ramipril 10 mg oral capsule (14 sources) Angiotensin Converting Enzyme Inhibitor Start: 04-08-20 take 1 capsule by mouth in the morning ramipriL (ALTACE) 10 mg capsule Take 1 capsule (10 mg total) by mouth in the morning. 0 02/22/2022 Active Ramipril Active rosuvastatin calcium 10 mg oral tablet (15 sources) HMG-CoA Reductase Inhibitor Start: 04-08-2019 take 1 tablet by mouth at bedtime rosuvastatin (CRESTOR) 10 mg tablet rosuvastatin 10 mg tablet take 1 tablet by mouth at bedtime 0 05/04/2023 Active Rosuvastatin Sabino cium Active Crestor Not-Taki ng sildenafil 100 mg oral tablet (12 sources) Phosphodiesterase 5 Inhibitor si ldenafiL (VIAGRA) 100 mg tablet sildenafil 100 mg tablet 0 Active End: 06-18-2023 sildenafil (Revatio) 20 mg t ablet Take 1 tablet (20 mg) by mouth if needed. 0 06/18/2023 Discontinued (Therapy completed) Sildenafil Citra te TABS as needed Quantity: 0 Refills: 0 Ordered: 23-Apr-2021 DO Active SITagliptin 100 mg oral tablet (15 sources) Dipeptidyl Peptidase 4 Inhibitor Start: 04-08-2019 End: 06-23-2023 take 1 tablet by mouth once daily SITagliptin phosphate (JANUVIA) 100 mg tablet take 1 tablet by mouth once daily 90 tablet 1 06/23/2023 Active Januvia Active tadalafil 5 mg oral tablet (2 sources) Phosphodiesterase 5 Inhibitor Start: 04-08-2019 take 1 tablet by mouth once daily Tadalafil (Cialis) 5 mg Tablet Active 5 MG PO Daily April 08, 2019 12:00am Kaia Jey suri tamsulosin hydrochloride 0.4 mg oral capsule (12 sources) alpha-Adrenergic Fani Start: 07-10-2020 take 1 capsule by mouth once daily tamsulosin (Flomax) 0.4 mg 24 hr capsule Take 1 capsule (0.4 mg) by mouth once daily. 0 07/10/2020 Active 60 actuat testosterone 20.25 mg/actuat topical gel (14 sources) Androgen Start: 03-17-2022 testosterone (ANDROGEL) 20.25 mg/1.25 gram (1.62 %) gel in metered-dose pump Start: 08-17-2020 testosterone 2 0.25 mg/1.25 gram (1.62 %) gel in metered-dose [...] hydrochloride 240 mg extended release oral tablet (14 sources) Calcium Channel Fani Start: 04-08-2019 End: 06-18-2023 take 1 tablet by mouth in the morning verapamil SR (CALAN-SR) 240 mg CR tablet Take 1 tablet (240 mg total) by mouth in the morning. 0 02/20/2022 Active Verapamil HCl Ac tive Completed/Discontinued Medications Medication Drug Class(es) Dates Sig (Normalized) Sig (Original) canagliflozin 300 mg oral tablet (3 sources) Sodium-Glucose Cotransporter 2 Inhibitor Start: 06-22-2023 End: 06-26-2023 take 1 tablet by mouth in the morning canagliflozin (INVOKANA) 300 mg tablet Indications: Type 2 diabetes mellitus with diabetic polyneuropathy, without long-term current use of insulin ([facility]) Take 1 tablet (300 mg total) by mouth in the morning. 30 tablet 5 06/22/2023 06/26/2023 Discontinued (Formulary change) gabapentin 300 mg oral capsule (10 sources) Anti-epileptic Agent Start: 04-08-2019 End: 06-25-2023 take 1 capsule by mouth at bedtime gabapentin (NEURONTIN) 300 mg capsule Indications: Diabetic polyneuropathy associated with type 2 diabetes mellitus (CMS-HCC) take 1 capsule by mouth at bedtime 30 capsule 2 03/10/2023 06/25/2023 Discontinued (Therapy completed) Gabapentin Activ e glimepiride 2 mg oral tablet (2 sources) [...] Problem Classification Problem Date Documented Date Episodic/Chronic Coagulation and hemorrhagic disorders (6 sources) Thrombocytopenic disorder; Translations: [Thrombocytopenia, unspecified] Onset: 06-25-2023 06-25-2023 Chronic Coronary atherosclerosis and other heart disease (16 sources) Arteriosclerotic vascular disease; Translations: [Cardiovascular disease, unspecified] Onset: 03-19-2022 06-18-2023 Chronic Deficiency and other anemia (1 source) Anemia; Translations: [Anemia, unspecified] Onset: 06-19-2023 06-19-2023 Episodic Deficiency and other anemia (6 sources) Normocytic normochromic anemia; Translations: [Anemia, unspecified] Onset: 06-19-2023 06-25-2023 Episodic Diabetes mellitus with complications (11 sources) Type 2 diabetes mellitus with diabetic neuropathy, unspecified; Translations: [Neuropathy due to diabetes mellitus] Onset: 01-12-2022 03-19-2022 Chronic Diabetes mellitus without complication (15 sources) Diabetes mellitus; Translations: [Diabetes mellitus without mention of complication, type II or unspecified type, not stated as uncontrolled] Onset: 03-19-2022 06-18-2023 Chronic Disorders of lipid metabolism (17 sources) Hyperlipidemia; Translations: [Other and unspecified hyperlipidemia] Onset: 07-16-2021 06-18-2023 Chronic Essential hypertension (20 sources) Essential hypertension; Translations: [Unspecified essential hypertension] Onset: 07-16-2021 Chronic Hyperplasia of prostate (11 sources) Benign prostatic hyperplasia with lower urinary tract symptoms; Translations: [Benign prostatic hypertrophy with outflow obstruction] Onset: 12-31-2016 Chronic Osteoarthritis (1 source) Primary generalized (osteo)arthritis; [...] Onset: 10-26-2021 Chronic Other male genital disorders (7 sources) Male erectile dysfunction, unspecified; Translations: [Impotence of organic origin] Onset: 10-29-2021 03-19-2022 Chronic Other nutritional; endocrine; and metabolic disorders (5 sources) Overweight in adulthood with body mass index of 25 or more but less than 30; Translations: [Overweight] Episodic Other nutritional; endocrine; and metabolic disorders (1 source) Body mass index (BMI) 29.0-29.9, adult Episodic Peripheral and visceral atherosclerosis (20 sources) Intermittent claudication; Translations: [Peripheral vascular disease, unspecified] Onset: 03-19-2022 Resolved: 05-04-2023 06-18-2023 Chronic Comment on above: Status post SFA clinton oplasty 2008; Residual codes; unclassified (6 sources) Sleep apnea; Translations: [Unspecified sleep apnea] Onset: 05-26-2023 05-26-2023 Chronic Residual codes; unclassified (8 sources) Obstructive sleep apnea syndrome; Translations: [Obstructive sleep apnea (adult) (pediatric)] Onset: 03-19-2022 03-19-2022 Chronic Residual codes; unclassified (1 source) Obstructive [...] Translations: [Rheumatoid arthritis, unspecified] Onset: 07-13-2021 Chronic Thyroid disorders (1 source) Hypothyroidism Onset: 05-04-2023 Chronic Unclassified (6 sources) Hypogonadism; Translations: [Hypogonadism] Onset: 10-06-2017 03-19-2022 Unclassified (1 source) dicuss medication Onset: 06-25-2023 Past or Other Problems Problem Classification Problem Date Documented Date Episodic/Chronic Mood disorders (6 sources) Mood disorders Onset: 05-04-2023 Resolved: 06-25-2023 05-04-2023 Other aftercare (1 source) Other intermediate frame tender (current) drug therapy; Translations: [OTH APPLICATIONS DEVELOPMENT CONSULTANT CURRENT DRUG THERAPY] Onset: 07-16-2021 Episodic Other and unspecified benign neoplasm (6 sources) Tubular adenoma ; Translations: [Benign neoplasm, unspecified site] Onset: 03-19-2022 03-19-2022 Episodic Other circulatory disease (2 sources) History of claudication; Translations: [Personal history of unspecified circulatory disease] Resolved: 02-04-2022 Episodic Other connective tissue disease (1 source) Impingement syndrome of right shoulder; Translations: [Impingement syndrome of right shoulder] Onset: 07-06-2017 Episodic Other connective tissue disease (6 sources) Right rotator cuff syndrome; Translations: [Unspecified rotator cuff tear or rupture of right shoulder, not specified as traumatic] Onset: 03-19-2022 03-19-2022 Episodic Other connective tissue disease (6 sources) Impingement syndrome of shoulder region; Translations: [Impingement syndrome of unspecified shoulder] Onset: 03-19-2022 03-19-2022 Episodic Other connective tissue disease (6 sources) Radial styloid tenosynovitis; Translations: [Radial styloid tenosynovitis [de Quervain]] Onset: 09-11-2016 03-19-2022 Episodic Other non-traumatic joint disorders (4 sources) Pain in right knee; Translations: [PAIN IN RIGHT KNEE] Onset: 07-24-2021 Episodic Other nutritional; endocrine; and metabolic disorders (6 sources) Obesity; Translations: [Obesity, unspecified] Onset: 03-19-2022 Resolved: 03-19-2022 03-19-2022 Chronic Other nutritional; endocrine; and metabolic disorders (2 sources) Overweight; Translations: [Overweight] Onset: 06-18-2023 06-18-2023 Episodic Other nutritional; endocrine; and metabolic disorders (2 sources) Overweight; Translations: [Overweight] Onset: 05-04-2023 Episodic Other screening for suspected conditions (not mental disorders or infectious disease) (11 sources) History of adenomatous polyp of colon; Translations: [Encounter for screening for malignant neoplasm of colon] Onset: 01-10-2022 04-08-2019 Episodic Screening and history of mental health and substance abuse codes (9 sources) Ex-smoker; Translations: [Personal history of tobacco use] Onset: 06-18-2023 06-18-2023 Episodic Unclassified (1 source) Onset: 06-18-2023 06-18-2023 Results Test Name Value Interpretation Reference Range Facility Pre-Certification Formon Pre-Certification Form [id number] #1.00TIFF [facility] Pre-Certification Formon Pre-Certification Form [id number] #1.00TIFF [facility] Lab Reportson 06-30-2023 Lab Reports [id number] #1.00TIFF [facility] Lab Reportson 06-20-2023 Lab Reports [id number] #1.00TIFF [facility] Pre-Certification Formon Pre-Certification Form [id number] #1.00TIFF Normal [facility] Complete Blood Count Auto Di ffon 03-17-2023 Basophils (Bld) [#/Vol] 0.0 10*3/uL Normal 0.0-0.2 [facility] Comment on above: Performed By: #### C MP, ESR, CBC #### [facility] [address] Basophils/100 WBC (Bld) 0.3 % Normal . [facility] Comment on above: Performed By: #### C MP, ESR, CBC #### [facility] [address] [place] [address] [place] Eosinophils (Bld) [#/Vol] 0.1 10*3/uL Normal 0.0-0.45 [facility] Comment on above: Performed By: #### C MP, ESR, CBC #### [facility] [address] [place] [address] [place] Eosinophils/100 WBC (Bld) 1.2 % Normal . [facility] Comment on above: Performed By: #### C MP, ESR, CBC #### [facility] [address] Erythrocyte distribution width (RBC) [Ratio] 14.1 % Normal 12.0-14.8 [facility] Comment on above: Performed By: #### C MP, ESR, CBC #### [facility] [address] [place] [address] [place] Hematocrit (Bld) [Volume fraction] 38.4 % Low 38.8-50.0 [facility] Comment on above: Performed By: #### C MP, ESR, CBC #### [facility] [address] [place] [address] [place] Hemoglobin (Bld) [Mass/Vol] 13.1 g/dL Normal 13.0-17.0 [facility] Comment on above: Performed By: #### C MP, ESR, CBC #### [facility] [address] [place] [address] [place] Lymphocytes (Bld) [#/Vol] 1.0 10*3/uL Normal 1.00-4.8 [facility] Comment on above: Performed By: #### C MP, ESR, CBC #### [address] Lymphocytes/100 WBC (Bld) 22.5 % Normal . [facility] Comment on above: Performed By: #### C MP, ESR, CBC #### [address] MCH (RBC) [Entitic mass] 31.1 pg Normal 27.5-35.2 [facility] Comment on above: Performed By: #### C MP, ESR, CBC #### [address] MCV (RBC) [Entitic vol] 91.2 fL Normal 83.5-101 [facility] Comment on above: Performed By: #### C MP, ESR, CBC #### [address] Mean Corpuscular HGB Conc 34.1 g/dL Normal 32.5-35.6 [facility] Comment on above: Performed By: #### C MP, ESR, CBC #### [address] Monocytes (Bld) [#/Vol] 0.3 10*3/uL Normal 0.0-0.8 [facility] Comment on above: Performed By: #### C MP, ESR, CBC #### [address] Monocytes/100 WBC (Bld) 7.3 % Normal . [facility] Comment on above: Performed By: #### C MP, ESR, CBC #### [address] Neutrophils (Bld) [#/Vol] 3.1 10*3/uL Normal 1.8-7.7 [facility] Comment on above: Performed By: #### C MP, ESR, CBC #### [address] Neutrophils/100 WBC (Bld) 68.7 % Normal . [facility] Comment on above: Performed By: #### C MP, ESR, CBC #### [address] NRBC% 0.0 /100{WBC} Normal 0-0.5 [facility] Comment on above: Performed By: #### C MP, ESR, CBC #### [address] Platelet mean volume (Bld) [Entitic vol] 9.7 fL Normal 6.6-10.1 [facility] Comment on above: Performed By: #### C MP, ESR, CBC #### [address] Platelets (Bld) [#/Vol] 144 10*3/uL Low 150-450 [facility] Comment on above: Performed By: #### C MP, ESR, CBC #### [address] RBC (Bld) [#/Vol] 4.21 10*6/uL Normal 3.90-5.60 [facility] Comment on above: Performed By: #### C MP, ESR, CBC #### [address] WBC (Bld) [#/Vol] 4.5 10*3/uL Normal 4.1-10.5 [facility] Comment on above: Performed By: #### C MP, ESR, CBC #### [address] Comprehensive Metabolic Pane jerrell 03-17-2023 Albumin [Mass/Vol] 4.5 g/dL Normal 3.5-5.7 [facility] Comment on above: Performed By: #### C MP, ESR, CBC #### [address] Albumin/Globulin [Mass ratio] 2.0 {ratio} Normal [facility] Comment on above: Performed By: #### C MP, ESR, CBC #### [address] ALP [Catalytic activity/Vol] 43 U/L Normal 34-104 [facility] Comment on above: Result Comment: PERF ORMED BY: [place] [address] PATHOLOGIST TERRAZZO JOURNEYMAN BALDEMAR MCKINLEY M.D. Performed By: #### C MP, ESR, CBC #### [address] ALT [Catalytic activity/Vol] 14 U/L Normal 7-52 [facility] Comment on above: Performed By: #### C MP, ESR, CBC #### [address] Anion gap [Moles/Vol] 10.2 mmol/L Normal 6.0-15.0 [facility] Comment on above: Performed By: #### C MP, ESR, CBC #### [address] AST [Catalytic activity/Vol] 13 U/L Normal 13-39 [facility] Comment on above: Performed By: #### C MP, ESR, CBC #### [address] Bilirubin [Mass/Vol] 0.6 mg/dL Normal 0.3-1.0 [facility] Comment on above: Performed By: #### C MP, ESR, CBC #### [address] Calcium [Mass/Vol] 9.5 mg/dL Normal 8.6-10.3 [facility] Comment on above: Performed By: #### C MP, ESR, CBC #### [address] Chloride [Moles/Vol] 100 mmol/L Normal 98-107 [facility] Comment on above: Performed By: #### C MP, ESR, CBC #### [place] [address] [place] CO2 [Moles/Vol] 30.5 mmol/L Normal 21.0-31.0 [facility] Comment on above: Performed By: #### C MP, ESR, CBC #### [facility] [address] Creatinine [Mass/Vol] 0.98 mg/dL Normal 0.70-1.30 [facility] Comment on above: Performed By: #### C MP, ESR, CBC #### [facility] [address] [place] [address] [place] GFR/1.73 sq M.predicted MDRD (S/P/Bld) [Vol rate/Area] mL/min/{1.73_m2} Normal [facility] Comment on above: Performed By: #### C MP, ESR, CBC #### [facility] [address] Globulin (S) [Mass/Vol] 2.3 g/dL Normal [facility] Comment on above: Performed By: #### C MP, ESR, CBC #### [facility] [address] Glucose [Mass/Vol] 177 mg/dL High 70-100 [facility] Comment on above: Result Comment: [facility] Glucose Reference Range is dependent on time and content of last meal. Glucose of more than 200 mg/dL in a nonstressed, ambulatory subject supports the diagnosis of Diabetes Mellitus. ADA recommended reference range Performed By: #### C MP, ESR, CBC #### [facility] [address] [place] [address] [place] Potassium [Moles/Vol] 4.7 mmol/L Normal 3.5-5.1 [facility] Comment on above: Performed By: #### C MP, ESR, CBC #### [facility] [address] [place] [address] [place] Protein [Mass/Vol] 6.8 g/dL Normal 6.4-8.9 [facility] Comment on above: Performed By: #### C MP, ESR, CBC #### [facility] [address] [place] [address] [place] Sodium [Moles/Vol] 136 mmol/L Normal 136-145 [facility] Comment on above: Performed By: #### C MP, ESR, CBC #### [facility] [address] Urea nitrogen [Mass/Vol] 16 mg/dL Normal 7-25 [facility] Comment on above: Performed By: #### C MP, ESR, CBC #### [facility] [address] Erythrocyte Sedimentation Ra riya 03-17-2023 ESR (Bld) [Velocity] 15 mm/h Normal 0-19 [facility] Comment on above: Result Comment: PERF ORMED BY: [place] [address] PATHOLOGIST TERRAZZO JOURNEYMAN BALDEMAR MCKINLEY M.D. Performed By: #### C MP, ESR, CBC #### [facility] [address] VASC LAB Abdominal Aorta/Isela ac/IVC Ultraon 01-05-2023 VASC LAB Abdominal Aorta/Iliac/IVC Ultra [address], [address] [place] [address] Vascular Lab Report Abdominal Aorta Iliac Ultrasound/IVC Ultrasound Patient Name: MIKE Emery Flor Physician: [id number] Jade Gale MD, [facility] Study Date: 01/05/2023 Referring JADE GALE Physician: MRN/PID: [id number] PCP: Josh Ospina MD Accession/Order#: [id number] CC Report to: Date of : 1955 Technologist: Deidre Jimenez RDCS, T Gender: M Technologist 2: Admission Status: Outpatient Location Performed: 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 Imaging AND Doppler Findings: AORTA AP Lateral PSV Proximal 1.49 cm 1.36 cm 101.0 cm/s Mid 1.55 cm 1.43 cm 97.0 cm/s Distal 1.57 cm 1.51 cm 72.0 cm/s RIGHT AP Lateral PSV FRANCISCO Proximal 1.08 cm 0.81 cm 147.00 cm/s LEFT AP Lateral PSV FRANCISCO Proximal 0.83 cm 0.96 cm 94.00 cm/s [id number] Jade Gale MD, FACC Final Normal [facility] TESTOSTERONE, TOTALon 2021 Testosterone [Mass/Vol] 229 ng/dL Critically low [phone] [facility] Comment on above: Result Comment: Adul t male reference interval is based on a population of healthy nonobese males (BMI <30) between 19 and 39 years old. Leticia et.al. JCEM 2017,102;[id number]. PMID: [id number]. Performed By: #### T ESTTOT ####[facility] [id number] [id number]. Juan Alberto Carranza Office Visit (Cardiology)on 02-04-2022 Follow-up visit [...] Weight Tips; Status:Complete - Retrospective Authorization; Done: [id number] Some eating tips that can help you lose weight.; Status:Complete - Retrospective Authorization; Done: [id number] SocHx: Former smoker Tobacco Use Screening; Status:Complete; Done: [id number] Patient Instructions Please bring all medicines, vitamins, and herbal supplements with you when you come to the office. Prescriptions will not be filled unless you are compliant with your follow up appointments or have a follow up appointment scheduled as per instruction of your physician. Refills should be requested at the time of your visit. Follow up in 9 months Chief Complaint MIKE FLORENTINO is being seen for a 9 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 with previous [employer] the right SFA 2008, currently has no symptoms of claudication. 4. Hyperlipidemia, on statin therapy, under control. Lipid profile from December 2021 was reviewed with the patient 5. Overweight. Patient is planning on dropping his weight by another 15 pounds which is encouraging 6. Hypertension, presently under control. No side effect of medications 7. Diabetes, under control., A1c December 2021 was 6.0 Jade Gale MD, [facility] Surgical History Problems History of Angioplasty History [...] negative for complaint. Vitals Vital Signs Recorded: [id number] 08:27AM Heart Rate74, R Radial Ajrdxyhr090, LUE, Sitting Rngbudoxw18, LUE, Sitting Height6 ft 2 in Nykntg497 lb 2 oz BMI Fywxviwpgm82.03 kg/m2 BSA Calculated2.29 Tobacco Useb) No PHQ-2 #1. Over the last 2 weeks have you felt down, depressed or hopeless? (If yes, answer PHQ-9 below)No PHQ-2 #2. Over the last 2 weeks have you felt littl (more content not included)... [facility] GLYCOHEMOGLOBIN A1Con 2021 ADA RECOMMENDATION SEE BELOW Normal [facility] Comment on above: Result Comment: ADA RECOMMENDED LIMIT 4.0 - 6.0 ADA THERAPEUTIC TARGET < 7.0 ACTION SUGGESTED > 7.0 Performed By: #### A 1C #### [facility] [address] [address] [address] Juan Alberto Carranza Glucose [Mass/Vol] 126 mg/dL Normal [facility] Comment on above: Performed By: #### A 1C #### [facility] [address] [address] [address] Juan Alberto Carranza HbA1c (Bld) [Mass fraction] 6.0 % Normal 4.5-6.2 [facility] Comment on above: Performed By: #### A 1C #### [facility] [address] [address] [address] Juan Alberto Carranza LIPID PROFILEon 01-10-2022 CHOL-HDL RATIO NORM SEE BELOW Normal [facility] Comment on above: Result Comment: 3.3 - 4.4 LOW RISK 4.4 - 7.1 AVERAGE RISK 7.1 - 11.0 MODERATE RISK >11.0 HIGH RISK Performed By: #### L IPID, CMP #### [facility] [address] [place] [address] Dr. Juan Alberto Carranza Cholesterol [Mass/Vol] 136 mg/dL Normal <=200 [facility] Comment on above: Performed By: #### L IPID, CMP #### [facility] [address] [place] [address] Dr. Juan Alberto Carranza Cholesterol in HDL [Mass/Vol] 62 mg/dL Critically high 40-60 [facility] Comment on above: Performed By: #### L IPID, CMP #### [facility] [address] [address] [address] Juan Alberto Carranza Cholesterol in LDL [Mass/Vol] 57.6 mg/dL Normal [facility] Comment on above: Performed By: #### L IPID, CMP #### [facility] [address] [place] [address] Dr. Juan Alberto Carranza Cholesterol.total/Ch olesterol in HDL [Mass ratio] 2.2 {ratio} Normal [facility] Comment on above: Performed By: #### L IPID, CMP #### [facility] [address] [address] [address] Juan Alberto Carranza HDL NORMAL > or = 60 mg/dl - LOW CARDIOVASCULAR RISK <40 mg/dl - HIGH CARDIOVASCULAR RISK Normal [facility] Comment on above: Performed By: #### L IPID, CMP #### [facility] [address] [address] [address] Juan Alberto Carranza LDL CALC NORMAL SEE BELOW Normal [facility] Comment on above: Result Comment: <100 mg/dl OPTIMAL 100 - 129 mg/dl NEAR OR ABOVE OPTIMAL 130 - 159 mg/dl BORDERLINE HIGH 160 - 189 mg/dl HIGH >190 mg/dl VERY HIGH Performed By: #### L IPID, CMP #### [facility] [address] [address] [address] Juan Alberto Carranza Triglyceride [Mass/Vol] 82 mg/dL Normal <=150 [facility] Comment on above: Performed By: #### L IPID, CMP #### [facility] [address] [address] [address] Juan Alberto Carranza VLDL CALC 16.4 mg/dL Normal [facility] Comment on above: Performed By: #### L IPID, CMP #### [facility] [address] [address] [address] Juan Alberto Carranza PROF 14(COMP METB)on 022 Albumin [Mass/Vol] 4.0 g/dL Normal 3.4-5.0 [facility] Comment on above: Performed By: #### L IPID, CMP #### [facility] [address] [address] [address] Juan Alberto Carranza Albumin/Globulin [Mass ratio] 1.3 {ratio} Normal [facility] Comment on above: Performed By: #### L IPID, CMP #### [facility] [address] [address] [address] Juan Alberto Carranza ALP [Catalytic activity/Vol] 48 U/L Normal 46-116 [facility] Comment on above: Performed By: #### L IPID, CMP #### [facility] [address] [address] [address] Juan Alberto Carranza ALT [Catalytic activity/Vol] 28 U/L Normal 16-63 [facility] Comment on above: Performed By: #### L IPID, CMP #### [facility] [address] [address] [address] Juan Alberto Carranza Anion gap [Moles/Vol] 13.2 mmol/L Normal [facility] Comment on above: Performed By: #### L IPID, CMP #### [facility] [address] [address] [address] Juan Alberto Carranza AST [Catalytic activity/Vol] 13 U/L Critically low 15-37 [facility] Comment on above: Performed By: #### L IPID, CMP #### [facility] [address] [address] [address] Juan Alberto Carranza Bilirubin [Mass/Vol] 0.6 mg/dL Normal 0.2-1.0 [facility] Comment on above: Performed By: #### L IPID, CMP #### [facility] [address] [place] [address] Dr. Juan Alberto Carranza Calcium [Mass/Vol] 8.8 mg/dL Normal 8.5-10.1 [facility] Comment on above: Performed By: #### L IPID, CMP #### [facility] [address] [place] [address] Dr. Juan Alberto Carranza Chloride [Moles/Vol] 100 mmol/L Normal 98-107 [facility] Comment on above: Performed By: #### L IPID, CMP #### [facility] [address] [place] [address] Dr. Juan Alberto Carranza CO2 [Moles/Vol] 29.1 mmol/L Normal 21.0-32.[address] [facility] Comment on above: Performed By: #### L IPID, CMP #### [facility] [address] [place] [address] Dr. Juan Alberto Carranza Creatinine [Mass/Vol] 0.89 mg/dL Normal 0.70-1.30 [facility] Comment on above: Performed By: #### L IPID, CMP #### [facility] [address] [place] [address] Dr. Juan Alberto Carranza EGFR-AF VINCENTIAN >60 Normal >=[address] [facility] Comment on above: Performed By: #### L IPID, CMP #### [facility] [address] [place] [address] Dr. Juan Alberto Carranza EGFR-NON AF VINCENTIAN >60 Normal >=60 [facility] Comment on above: Performed By: #### L IPID, CMP #### [facility] [address] [place] [address] Dr. Juan Alberto Carranza Globulin (S) [Mass/Vol] 3.0 g/dL Normal [facility] Comment on above: Performed By: #### L IPID, CMP #### [facility] [address] [place] [address] Dr. Juan Alberto Carranza Glucose [Mass/Vol] 134 mg/dL Critically high 74-106 [facility] Comment on above: Performed By: #### L IPID, CMP #### [facility] [address] [place] [address] Dr. Juan Alberto Carranza Potassium [Moles/Vol] 4.3 mmol/L Normal 3.5-5.1 [facility] Comment on above: Performed By: #### L IPID, CMP #### [facility] [address] [place] [address] Dr. Juan Alberto Carranza Protein [Mass/Vol] 7.0 g/dL Normal 6.4-8.2 [facility] Comment on above: Performed By: #### L IPID, CMP #### [facility] [address] [place] [address] Dr. Juan Alberto Carranza Sodium [Moles/Vol] 138 mmol/L Normal 136-145 [facility] Comment on above: Performed By: #### L IPID, CMP #### [facility] [address] [place] [address] Dr. Juan Alberto Carranza Urea nitrogen [Mass/Vol] 17.0 mg/dL Normal 7.0-18.0 [facility] Comment on above: Performed By: #### L IPID, CMP #### [facility] [address] [place] [address] Dr. Juan Alberto Carranza Urea nitrogen/Creatinine [Mass ratio] 19.1 mg/mg Normal [facility] Comment on above: Performed By: #### L IPID, CMP #### [facility] [address] [place] [address] Dr. Juan Alberto Carranza TESTOSTERONE, TOTALon 2021 Testosterone [Mass/Vol] 321 ng/dL Normal 264-916 [facility] Comment on above: Result Comment: Adul t male reference interval is based on a population of healthy nonobese males (BMI <30) between 19 and 39 years old. Travison, et.al. JCEM 2017,102;4868-6162. PMID: [id number]. Performed By: #### T ESTTOT #### [facility] [address] [place] [address] Dr. Juan Alberto Carranza TESTOSTERONE, TOTALon 2021 Testosterone [Mass/Vol] 360 ng/dL Normal 264-916 [facility] Comment on above: Result Comment: Adul t male reference interval is based on a population of healthy nonobese males (BMI <30) between 19 and 39 years old. Travison, et.al. JCEM 2017,102;2896-5304. PMID: [id number]. Performed By: #### T ESTTOT ####[facility] [id number] [address]Dr. Juan Alberto Carranza CBC AUTO DIFFon 07-13-2021 BASO # 0.0 103/ul Normal 0.0-0.1 [facility] Comment on above: Performed By: #### C BC #### [facility] [address] [place] [address] Dr. Juan Alberto Carranza Basophils/100 WBC (Bld) 0.5 % Normal 0.2-2.0 [facility] Comment on above: Performed By: #### C BC #### [facility] [address] [place] [address] Dr. Juan Alberto Carranza EO # 0.1 103/ul Normal 0.0-0.7 [facility] Comment on above: Performed By: #### C BC #### [facility] [address] [place] [address] Dr. Juan Alberto Carranza Eosinophils/100 WBC (Bld) 1.8 % Normal 0.9-7.0 [facility] Comment on above: Performed By: #### C BC #### [facility] [address] [place] [address] Dr. Juan Alberto Carranza Erythrocyte distribution width (RBC) [Ratio] 13.5 % Normal 11.0-15.0 [facility] Comment on above: Performed By: #### C BC #### [facility] [address] [place] [address] Dr. Juan Alberto Carranza Hematocrit (Bld) [Volume fraction] 40.4 % Critically low 42.0-54.0 [facility] Comment on above: Performed By: #### C BC #### [facility] [address] [place] [address] Dr. Juan Alberto Carranza Hemoglobin (Bld) [Mass/Vol] 13.9 g/dL Critically low 14.0-18.0 [facility] Comment on above: Performed By: #### C BC #### [facility] [address] [place] [address] Dr. Juan Alberto Carranza IG # 0.01 10e3/ul Normal 0.00-0.03 [facility] Comment on above: Performed By: #### C BC #### [facility] [address] [place] [address] Dr. Juan Alberto Carranza IG % 0.2 % Normal 0.0-0.5 [facility] Comment on above: Performed By: #### C BC #### [facility] [address] [place] [address] Dr. Juan Alberto Carranza LYMPH # 0.9 103/ul Critically low 1.2-3.8 [facility] Comment on above: Performed By: #### C BC #### [facility] [address] [place] [address] Dr. Juan Alberto Carranza Lymphocytes/100 WBC (Bld) 20.5 % Normal 20.5-60.0 [facility] Comment on above: Performed By: #### C BC #### [facility] [address] [place] [address] Dr. Juan Alberto Carranza MANUAL DIFF REQ NO Normal [facility] Comment on above: Performed By: #### C BC #### [facility] [address] [place] [address] Dr. Juan Alberto Carranza MCH (RBC) [Entitic mass] 32.3 pg Normal 25.9-34.0 [facility] Comment on above: Performed By: #### C BC #### [facility] [address] [place] [address] Dr. Juan Alberto Carranza MCHC (RBC) [Mass/Vol] 34.4 g/dL Normal 29.9-35.2 [facility] Comment on above: Performed By: #### C BC #### [facility] [address] [place] [address] Dr. Juan Alberto Carranza MCV (RBC) [Entitic vol] 93.7 fL Normal 80.0-94.0 [facility] Comment on above: Performed By: #### C BC #### [facility] [address] [place] [address] Dr. Juan Alberto Carranza MONO # 0.3 103/ul Normal 0.3-0.8 [facility] Comment on above: Performed By: #### C BC #### [facility] [address] [place] [address] Dr. Juan Alberto Carranza Monocytes/100 WBC (Bld) 7.0 % Normal 1.7-12.0 [facility] Comment on above: Performed By: #### C BC #### [facility] [address] [place] [address] Dr. Juan Alberto Carranza NEUT # 3.1 103/ul Normal 1.4-6.5 [facility] Comment on above: Performed By: #### C BC #### [facility] [address] [place] [address] Dr. Juan Alberto Carranza Neutrophils/100 WBC (Bld) 70.0 % Normal 43.0-75.0 [facility] Comment on above: Performed By: #### C BC #### [facility] [address] [place] [address] Dr. Juan Alberto Carranza Platelet mean volume (Bld) [Entitic vol] 11.3 fL Normal 9.5-13.5 [facility] Comment on above: Performed By: #### C BC #### [facility] [address] [place] [address] Dr. Juan Alberto Carranza PLT 141 103/ul Critically low 150-450 [facility] Comment on above: Performed By: #### C BC #### [facility] [address] [place] [address] Dr. Juan Alberto Carranza RBC 4.31 106/ul Critically low 4.70-6.10 [facility] Comment on above: Performed By: #### C BC #### [facility] [address] [place] [address] Dr. Juan Alberto Carranza WBC 4.4 103/ul Normal 4.0-11.0 [facility] Comment on above: Performed By: #### C BC #### [facility] [address] [place] [address] Dr. Juan Alberto Carranza LIPID PROFILEon 07-13-2021 CHOL-HDL RATIO NORM SEE BELOW Normal [facility] Comment on above: Result Comment: 3.3 - 4.4 LOW RISK 4.4 - 7.1 AVERAGE RISK 7.1 - 11.0 MODERATE RISK >11.0 HIGH RISK Performed By: #### L IPID #### [facility] [address] [place] [address] Dr. Juan Alberto Carranza Cholesterol [Mass/Vol] 139 mg/dL Normal <=200 [facility] Comment on above: Performed By: #### L IPID #### [facility] [address] [place] [address] Dr. Juan Alberto Carranza Cholesterol in HDL [Mass/Vol] 72 mg/dL Normal [facility] Comment on above: Performed By: #### L IPID #### [facility] [address] [place] [address] Dr. Juan Alberto Carranza Cholesterol in LDL [Mass/Vol] 62.4 mg/dL Normal [facility] Comment on above: Performed By: #### L IPID #### [facility] [address] [place] [address] Dr. Juan Alberto Carranza Cholesterol.total/Ch olesterol in HDL [Mass ratio] 1.9 {ratio} Normal [facility] Comment on above: Performed By: #### L IPID #### [facility] [address] [address] [address] Juan Alberto Carranza HDL NORMAL > or = 60 mg/dl - LOW CARDIOVASCULAR RISK <40 mg/dl - HIGH CARDIOVASCULAR RISK Normal [facility] Comment on above: Performed By: #### L IPID #### [facility] [address] [address] [address] Juan Alberto Carranza LDL CALC NORMAL SEE BELOW Normal [facility] Comment on above: Result Comment: <100 mg/dl OPTIMAL 100 - 129 mg/dl NEAR OR ABOVE OPTIMAL 130 - 159 mg/dl BORDERLINE HIGH 160 - 189 mg/dl HIGH >190 mg/dl VERY HIGH Performed By: #### L IPID #### [facility] [address] [place] [address] Dr. Juan Alberto Carranza Triglyceride [Mass/Vol] 23 mg/dL Normal <=150 [facility] Comment on above: Performed By: #### L IPID #### [facility] [address] [address] [address] Juan Alberto Carranza VLDL CALC 4.6 mg/dL Normal [facility] Comment on above: Performed By: #### L IPID #### [facility] [address] [place] [address] Dr. Juan Alberto Carranza PROF 14(COMP METB)on 022 Albumin [Mass/Vol] 4.0 g/dL Normal 3.5-5.0 [facility] Comment on above: Performed By: #### C MP #### [facility] [address] [address] [address] Juan Alberto Carranza Albumin/Globulin [Mass ratio] 1.3 {ratio} Normal [facility] Comment on above: Performed By: #### C MP #### [facility] [address] [address] [address] Juan Alberto Carranza ALP [Catalytic activity/Vol] 60 U/L Normal 38-126 [facility] Comment on above: Performed By: #### C MP #### [facility] [address] [address] [address] Juan Alberto Carranza ALT [Catalytic activity/Vol] 22 U/L Normal 21-72 [facility] Comment on above: Performed By: #### C MP #### [facility] [address] [address] [address] Juan Alberto Carranza Anion gap [Moles/Vol] 9.4 mmol/L Normal [facility] Comment on above: Performed By: #### C MP #### [facility] [address] [address] [address] Juan Alberto Carranza AST [Catalytic activity/Vol] 12 U/L Critically low 17-59 [facility] Comment on above: Performed By: #### C MP #### [facility] [address] [address] [address] Juan Alberto Carranza Bilirubin [Mass/Vol] 0.6 mg/dL Normal 0.2-1.3 [facility] Comment on above: Performed By: #### C MP #### [facility] [address] [address] [address] Juan Alberto Carranza Calcium [Mass/Vol] 8.9 mg/dL Normal 8.4-10.2 [facility] Comment on above: Performed By: #### C MP #### [facility] [address] [address] [address] Juan Alberto Carranza Chloride [Moles/Vol] 103 mmol/L Normal 98-107 [facility] Comment on above: Performed By: #### C MP #### [facility] [address] [address] [address] Juan Alberto Carranza CO2 [Moles/Vol] 28.8 mmol/L Normal 22.0-30.0 [facility] Comment on above: Performed By: #### C MP #### [facility] [address] [address] [address] Juan Alberto Carranza Creatinine [Mass/Vol] 0.83 mg/dL Normal 0.66-1.25 [facility] Comment on above: Performed By: #### C MP #### [facility] [address] [address] [address] Juan Alberto Carranza EGFR-AF VINCENTIAN >60 Normal >=[address] [facility] Comment on above: Performed By: #### C MP #### [facility] [address] [address] [address] Juan Alberto Carranza EGFR-NON AF VINCENTIAN >60 Normal >=60 [facility] Comment on above: Performed By: #### C MP #### [facility] [address] [address] [address] Juan Alberto Carranza Globulin (S) [Mass/Vol] 3.2 g/dL Normal [facility] Comment on above: Performed By: #### C MP #### [facility] [address] [address] [address] Juan Alberto Carranza Glucose [Mass/Vol] 135 mg/dL Critically high 74-106 [facility] Comment on above: Performed By: #### C MP #### [facility] [address] [address] [address] Juan Alberto Carranza Potassium [Moles/Vol] 5.2 mmol/L Critically high 3.4-5.0 [facility] [place] Comment on above: Performed By: #### C MP #### [facility] [address] [place] [address] Dr. Juan Alberto Carranza Protein [Mass/Vol] 7.2 g/dL Normal 6.1-8.2 [facility] Comment on above: Performed By: #### C MP #### [facility] [address] [address] [address] Juan Alberto Carranza Sodium [Moles/Vol] 136 mmol/L Critically low 137-145 [facility] Comment on above: Performed By: #### C MP #### [facility] [address] [place] [address] Dr. Juan Alberto Carranza Urea nitrogen [Mass/Vol] 17.0 mg/dL Normal 9.0-20.0 [facility] [place] Comment on above: Performed By: #### C MP #### [facility] [address] [place] [address] Dr. Juan Alberto Carranza Urea nitrogen/Creatinine [Mass ratio] 20.5 mg/mg Normal [facility] [place] Comment on above: Performed By: #### C MP #### [facility] [address] [place], [place] [address] Dr. Juan Alberto Carranza SED RATE WESTERGRENon 2021 SED RATE 2 mm/hr Normal <=20 [facility] [place] Comment on above: Performed By: #### S EDR #### [facility] [address] [place], [place] [address] Dr. Juan Alberto Carranza Office Visit (Cardiology)on [...] Weight Tips; Status:Complete - Retrospective Authorization; Done: [id number] SocHx: Former smoker Tobacco Use Screening; Status:Complete; Done: [id number] Patient Instructions By signing my name below, IPaulette RN,Scribe Please bring all medicines, vitamins, and herbal supplements with you when you come to the office. Prescriptions will not be filled unless you are compliant with your follow up appointments or have a follow up appointment scheduled as per instruction of your physician. Refills should be requested at the time of your visit Follow up in [9 ] months Chief Complaint MIKE FLORENTINO is being seen for a 9 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 with previous [employer] the right SFA 2008 4. Hyperlipidemia, on statin therapy, under control. Lipid profile was requested from PCP 5. Overweight. Weight has dropped 15 pounds from last year which is encouraging 6. Hypertension, presently under control. 7. Diabetes, under control., Lab data from PCP were requested Jade Gale MD, [facility] Current Meds Medication NameInstruction Aspirin 81 MG [...] PM Social History Problems Former smoker (V15.82) (Z87.674) Review of Systems Constitutional: not feeling tired. Cardiovascular: no intermittent leg claudication and as noted in HPI. Respiratory: no cough and no shortness of breath. Gastrointestinal: no change in bowel habits and no blood in stools. Integumentary: no skin rashes. Neurological: no seizures and no frequent falls. All other systems have been reviewed and are negative for complaint. Vitals Vital Signs Recorded: [id number] 03:40PM Heart Rate80, R Radial [id number], RUE, Sitting Gunkqbisq38, RUE, Sitting Height6 ft 2 in Liqxhm344 lb 9.6 oz BMI Xrjnzvlsif11.61 kg/m2 BSA Calculated2.31 Tobacco Useb) No Fall [...] time . Signatures Electronically signed by : Jade Gale MD; Apr 23 2021 4:16PM EST [...] A small fluid is present in the subacromial/subdelto id bursa, consistent with mild bursitis.There is a [...] Moderately severe AC joint osteoarthrosis, and mild subacromial/subdelto id bursitis.Interpreted by:VENICE Maeigned by:Jair Olivia MD07/06/17inal result Normal [facility] Vital Signs Date Time Vital Sign Value Performing Clinician Facility 06-25-2023 09:55-0500 Body mass index (BMI) [Ratio] 29.34 kg/m2 [facility] [facility] 06-25-2023 09:55-0500 Body weight 100.88 kg [employer]Style [facility] 06-18-2023 08:39-0500 Body height 185.4 cm Jade Gale MD Work Phone: [facility] 06-18-2023 08:39-0500 Body mass index (BMI) [Ratio] 29.82 kg/m2 Jade Gale MD Work Phone: [facility] 06-18-2023 08:39-0500 Body weight 102.51 kg Jade Gale MD Work Phone: [facility] 06-18-2023 08:39-0500 Diastolic blood pressure 76 mm[Hg] Jade Gale MD Work Phone: [facility] 06-18-2023 08:39-0500 Heart rate 62 /min Jade Gale MD Work Phone: [facility] 06-18-2023 08:39-0500 Systolic blood pressure 130 mm[Hg] Jade Gale MD Work Phone: [facility] 03-27-2022 16:00-0500 Body height Aryan Garcia Other [employer] Other 03-27-2022 16:00-0500 Body mass index (BMI) [Ratio] 29.81 kg/m2 Aryan Garcia Other [employer] Other 03-27-2022 16:00-0500 Body temperature 96.9 [degF] Aryan Garcia Other [employer] Other 03-27-2022 16:00-0500 Body weight 102.51 kg Aryan Garcia Other [employer] Other 03-27-2022 16:00-0500 Diastolic blood pressure 70 mm[Hg] Aryan Garcia Other [employer] Other 03-27-2022 16:00-0500 SaO2% (BldA) [Mass fraction] 100 % Aryan Garcia Other [employer] Other 03-27-2022 16:00-0500 Systolic blood pressure 128 mm[Hg] Aryan Garcia Other [employer] Other Encounters Encounter Date Encounter Type Care Provider Facility Start: 12-28-2023 ambulatory Shady Sallie JAMSHID Facili ty:INES Zelaya Start: 11-02-2023 End: 11-02-2023 ambulatory [facility] Start: 07-02-2023 Refill Loveetta Maurice [employer] [facility] Comment on above: Type 2 diabetes gordy itus with diabetic polyneuropathy, without long-term current use of insulin ([facility]) (Primary Dx) Start: 07-01-2023 Refill Belkys Angelique [employer] Liyah watts [facility] Comment on above: Type 2 diabetes gordy itus with diabetic polyneuropathy, without long-term current use of insulin ([facility]) (Primary Dx) Start: 06-29-2023 Refill Belkys Angelique [facility] Liyah watts [facility] Start: 06-26-2023 Orders Only Josh Suri Dailey DO Work Phone: [facility] Start: 06-25-2023 End: 06-25-2023 ambulatory [facility] Start: 06-25-2023 End: 06-25-2023 Office outpatient visit 25 minutes Josh Ospina DO Work Phone: [facility] Comment on above: Type 2 diabetes gordy itus with diabetic polyneuropathy, without long-term current use of insulin ([facility]) (Primary Dx); Normocytic normochromic anemia; Peripheral vascular disease ([facility]); Thrombocytopenia ([facility]) Start: 06-23-2023 Refill Belkys Angelique [employer] Jose Miguele dicbing [facility] Start: 06-18-2023 End: 06-18-2023 Office outpatient visit 25 minutes Jade Gale MD Work Phone: [facility] Comment on above: ASCVD (arteriosclero tic cardiovascular disease) (Primary Dx); Peripheral vascular disease (CMS/HCC); Essential hypertension; Hyperlipidemia, unspecified hyperlipidemia type; Other specified diabetes mellitus without complication, without long-term current use of insulin ([facility]); Former smoker; Overweight Start: 06-18-2023 End: 06-18-2023 ambulatory [facility] Start: 05-04-2023 End: 05-04-2023 ambulatory JOSH OSPINA [facility] Start: 03-17-2023 End: 03-17-2023 ambulatory Shanice Bailey Facility:[facility] Start: 01-05-[address] Jade Gale Facility:[id number] Start: 10-08-2022 Office outpatient vi sit 25 minutes Josh Ospina Work Phone: [facility] Work Phone: Start: 08-20-2022 Rx Renewal Josh Dailey ng Work Phone: [facility] 250 DO Work Phone: Start: 04-26-2022 End: 04-27-[address] JOSH OSPINA Facility:H1 Start: 03-27-2022 End: 03-27-2022 Patient encounter procedure DO Josh Ospina Work Phone: [facility] Start: 03-27-2022 End: 03-27-2022 ambulatory DO Joshjose r Bermudezrinkugregg Work Phone: [facility] Work Phone: Start: 03-27-2022 Office outpatient vi sit 25 minutes Aryan Garcia [facility] Start: 02-04-[address] Jade Gale Facility:[id number] Start: 01-10-2022 End: 01-11-[address] JOSH OSPINA Facility:[facility]1 Start: 12-03-2021 Rx Renewal Josh Dailey ng Work Phone: [facility] 250 DO Work Phone: Start: 11-26-2021 Rx Renewal Josh Dailey ng Work Phone: [facility] 250 DO Work Phone: Start: 11-19-2021 Rx Renewal Josh escobedo Work Phone: [facility] 250 DO Work Phone: Start: 10-26-2021 End: 10-27-[address] JOSH OSPINA Facility:H1 Start: 07-24-2021 End: 07-25-[address] SHANICE BAILEY Facility:[facility]1 Start: 07-13-2021 End: 07-14-[address] SHANICE BAILEY Facility:[facility] Start: 06-04-[address] JOSH OSPINA Fac ility:[facility]1 Start: 04-23-2021 ambulatory Josh Brand acility: Start: 07-06-2017 End: 07-09-2017 Ambulatory [facility] Procedures Date Procedure Procedure Detail Performing Clinician Start: 06-25-2023 Adult depression scr eening assessment Josh Ospina DO Work Phone: Start: 06-18-2023 Aspartate aminotrans ferase [Enzymatic activity/volume] in Serum or Plasma [facility] Start: 06-18-2023 Basic metabolic 2000 panel - Serum or Plasma [facility] Start: 06-18-2023 CBC panel - Blood by Automated count [facility] Start: 06-18-2023 Lipid panel [facility] Start: 06-18-2023 Alanine aminotransfe rase [Enzymatic activity/volume] in Serum or Plasma [facility] Start: 05-04-2023 Adult depression scr eening assessment Belkys Angelique [employer] Start: 05-04-2023 Microalbumin [Mass/v olume] in Urine by Test strip Belkys Angelique [employer] Start: 05-13-2022 Diabetic retinal eye exam Belkys Angelique [employer] Start: 04-26-[address] PINO BREEN Comment on above: Performed By: #### P SAD #### [facility] [address] [address] [address] Juan Alberto Carranza Start: 07-06-2017 Mri any jt upper ext remity w/o contrast matrl EILEEN PURVIS Start: 04-07-2014 Colonoscopy Jade gonzalez MD Work Phone: Angioplasty of blood vessel Josh Ospina Work Phone: Decompression of med kristin nerve Josh Ospina Work Phone: Percutaneous translu giovani coronary angioplasty Josh Ospina Work Phone: Repair of shoulder Josh Ospnia Work Phone: Screening for malign ant neoplasm of colon Aryan Garcia Other Surgical procedure Josh Ospina Work Phone: Comment on above: History of Stent Ind ications; Total colonoscopy Josh thapa Work Phone: Total replacement of hip Yohan Ospina Work Phone: Plan of Treatment Date Care Activity Detail Author Start: 04-08-2029 Screening for malignant neoplasm of colon Colon Cancer Screening 5 [facility] Comment on above: Postponed from 10/19/2000 (Not Indicated ) Start: 07-04-2024 DTaP,Tdap and Td Vaccines (2 - Td or Tdap) DTaP,Tdap and Td Vaccines (2 - Td or Tdap) [facility] [employer] Start: 07-04-2024 DTaP/Tdap/Td Vaccines (2 - Td or Tdap) DTaP/Tdap/Td Vaccines (2 - Td or Tdap) [facility] Start: 06-25-2024 Adult BMI Screening Adult BMI Screening [facility] Start: 06-25-2024 Depression Screening Depression Screening [facility] Start: 06-25-2024 Fall Risk Screening Fall Risk Screening [facility] Start: 06-25-2024 Tobacco Screening Tobacco Screening [facility] Start: 05-04-2024 Adult BMI Screening Adult BMI Screening [facility] Start: 05-04-2024 Depression Screening [facility] Start: 05-04-2024 Diabetic foot examination Diabetic Foot Exam [facility] Start: 05-04-2024 Fall Risk Screening Fall Risk Screening [facility] Start: 05-04-2024 Tobacco Screening Tobacco Screening [facility] Start: 05-04-2024 Urine screening for protein [facility] Start: 04-07-2024 Screening for malignant neoplasm of colon [facility] Start: 03-22-2024 End: 03-22-2024 Patient encounter procedure 03/22/2024 8:40 AM EST Office Visit [facility] [address] [facility] [address] [place] [id number] Jade Gale MD [address] [facility] [address] [place] [address] [facility] Start: 09-18-2023 Medicare Annual Wellness Visit Medicare Annual Wellness Visit [facility] Start: 06-25-2023 End: 06-25-2023 Patient encounter procedure 06/25/2023 10:00 AM EST Office Visit [facility] [address] [place] [address] Josh Ospina, [address], [facility] [address] [facility] Start: 06-18-2023 End: 06-18-2024 Alanine aminotransferase [Enzymatic activity/volume] in Serum or Plasma by With P-5'-P Alanine Aminotransferase Lab Routine ASCVD (arteriosclerotic cardiovascular disease) Peripheral vascular disease (CMS/HCC) Essential hypertension Hyperlipidemia, unspecified hyperlipidemia type Other specified diabetes mellitus without complication, without long-term current use of insulin (CMS/HCC) Expected: 06/18/2023 (Approximate), Expires: 06/18/2024 [facility] Service Area Work Phone: Comment on above: Expected: 06/18/2023 (Approximate), Expi res: 06/18/2024 Start: 06-18-2023 End: 06-18-2024 Aspartate aminotransferase [Enzymatic activity/volume] in Serum or Plasma by With P-5'-P Aspartate Aminotransferase Lab Routine ASCVD (arteriosclerotic cardiovascular disease) Peripheral vascular disease (CMS/HCC) Essential hypertension Hyperlipidemia, unspecified hyperlipidemia type Other specified diabetes mellitus without complication, without long-term current use of insulin (CMS/HCC) Expected: 06/18/2023 (Approximate), Expires: 06/18/2024 [facility] Work Phone: Comment on above: Expected: 06/18/2023 (Approximate), Expi res: 06/18/2024 Start: 06-18-2023 End: 06-18-2024 Basic metabolic 2000 panel - Serum or Plasma Basic Metabolic Panel Lab Routine ASCVD (arteriosclerotic cardiovascular disease) Peripheral vascular disease (CMS/HCC) Essential hypertension Hyperlipidemia, unspecified hyperlipidemia type Other specified diabetes mellitus without complication, without long-term current use of insulin (CMS/HCC) Expected: 06/18/2023 (Approximate), Expires: 06/18/2024 [facility] Work Phone: Comment on above: Expected: 06/18/2023 (Approximate), Expi res: 06/18/2024 Start: 06-18-2023 End: 06-18-2024 CBC panel - Blood by Automated count CBC Lab Routine ASCVD (arteriosclerotic cardiovascular disease) Peripheral vascular disease (CMS/HCC) Essential hypertension Hyperlipidemia, unspecified hyperlipidemia type Other specified diabetes mellitus without complication, without long-term current use of insulin (CMS/HCC) Expected: 06/18/2023 (Approximate), Expires: 06/18/2024 [facility] Work Phone: Comment on above: Expected: 06/18/2023 (Approximate), Expi res: 06/18/2024 Start: 06-18-2023 End: 06-18-2024 Lipid 1996 panel - Serum or Plasma Lipid Panel Lab Routine ASCVD (arteriosclerotic cardiovascular disease) Peripheral vascular disease (CMS/HCC) Essential hypertension Hyperlipidemia, unspecified hyperlipidemia type Other specified diabetes mellitus without complication, without long-term current use of insulin (CMS/HCC) Expected: 06/18/2023 (Approximate), Expires: 06/18/2024 [facility] Work Phone: Comment on above: Expected: 06/18/2023 (Approximate), Expi res: 06/18/2024 Start: 06-18-2023 FUV, Provider: Jade Gale, Status: Pen, Time: 9:00 AM FUV, Provider: Jade Gale, Status: Pen, Time: 9:[address] [facility] Work Phone: Start: 05-13-2023 Glaucoma screening Diabetic Ophthalmology Exam [facility] Start: 01-16-2023 COVID-19 Vaccine ( season) COVID-19 Vaccine () [facility] Start: 01-16-2023 COVID-19 Vaccine () COVID-19 Vaccine () [facility] Start: 01-16-2023 COVID-19 Vaccine () COVID-19 Vaccine () [facility] Start: 01-05-2023 AOILIVC, Provider: CECILIA [facility] 01,[id number], Status: Pen, Time: 7:45 AM AOILIVC, Provider: CECILIA [facility] 01,[id number], Status: Pen, Time: 7:[address] [facility] Work Phone: Start: 10-08-2022 FUV, Provider: Jade Gale, Status: Pen, Time: 8:40 AM FUV, Provider: Jade Gale, Status: Pen, Time: 8:40 AM [facility] 250 DO Work Phone: Start: 02-04-2022 FUV, Provider: Jade Gale, Status: Pen, Time: 8:30 AM FUV, Provider: Jade Gale, Status: Pen, Time: 8:30 AM [facility] 250 DO Work Phone: Start: 10-19-2000 Screening for malignant neoplasm of colon Colon Cancer Screening 5 Year Sigmoidoscopy [facility] Start: 10-19-1973 Adult BMI Follow Up Plan Adult BMI Follow Up Plan [facility] Start: 10-19-1973 Hepatitis C screening Hepatitis C Screening [facility] Start: 10-19-1965 Diabetic foot examination Diabetes: Foot Exam [facility] Start: 10-19-1965 Glaucoma screening Diabetes: Retinopathy Screening [facility] Start: 1955 Hemoglobin A1c measurement Diabetes: Hemoglobin A1C [facility] Start: 1955 Lipid panel Lipid Panel [facility] Start: 1955 Medicare Annual Wellness Visit Medicare Annual Wellness Visit (AWV) [facility] Start: 1955 Screening for malignant neoplasm of colon [facility] Immunizations Immunization Date Immunization Notes Care Provider Fa krystal 02-05-2023 Influenza, High-dose , Quadrivalent Belkys Angelique [facility] 04-14-2022 pneumococcal conjuga te vaccine, 13 valent Belkys Angelique [facility] 04-14-2022 Prevnar 20 0.5 ML Intramuscular Suspension Prefilled Syringe Josh Berm[employer] Work Phone: [facility] Work Phone: 02-18-2021 Pfizer-BioNTech COVI D-19 Vacc 30 MCG/0.3ML Intramuscular Suspension Josh Sanchez [facility] Work Phone: [facility] 08-08-2020 Pfizer-BioNTech COVI D-19 Vacc 30 MCG/0.3ML Intramuscular Suspension Josh Sanchez [employer] Work Phone: [facility] [employer] 250 DO Work Phone: 08-05-2020 Pfizer Purple Cap SARS-CoV-2 Jade Gale MD Work Phone: [facility] Work Phone: 07-18-2020 Moderna COVID-19 Vac cine 100 MCG/0.5ML Intramuscular Suspension Josh Sanchez [employer] Work Phone: [facility] [employer] 250 DO Work Phone: 07-18-2020 [employer] COVI D-19 Vacc 30 MCG/0.3ML Intramuscular Suspension Josh Sanchez [employer] Work Phone: [facility] [employer] DO Work Phone: 07-16-2020 COVID-19, mRNA, LNP- S, PF, 30mcg/0.3mL Dose Belkys Angelique [facility] 05-08-2020 pneumococcal polysaccharide vaccine, 23 valent Josh G [employer] Work Phone: [facility] 02-16-2020 influenza virus vacc ine, unspecified formulation Josh G [employer] Work Phone: [facility] [employer] DO Work Phone: 02-16-2020 influenza, injectabl e, quadrivalent, preservative free Jade Gale MD Work Phone: [facility] Work Phone: 02-16-2020 influenza, seasonal, injectable Belkys Angelique [facility] 06-29-2019 zoster vaccine recombinant Josh G [employer] Work Phone: [facility] [employer] DO Work Phone: 04-28-2019 zoster vaccine recombinant Josh G [employer] Work Phone: [facility] [employer] DO Work Phone: 03-18-2019 influenza virus vacc ine, unspecified formulation Josh G [employer] Work Phone: [facility] Work Phone: 03-18-2019 influenza, seasonal, injectable Belkys Angelique [facility] 03-02-2019 influenza, injectabl e, quadrivalent, contains preservative Josh G [employer] Work Phone: [facility] Work Phone: 04-13-2018 Influenza, injectabl e, Madin Myla Canine Kidney, preservative free, quadrivalent Josh G [employer] Work Phone: [facility] [employer] 250 DO Work Phone: 03-18-2018 influenza virus vacc ine, unspecified formulation Josh G [employer] Work Phone: [facility] [employer] 250 DO Work Phone: 04-20-2017 influenza, injectabl e, quadrivalent, preservative free Josh G [employer] [facility]: [facility] DO Work Phone: 03-31-2017 influenza, injectabl e, quadrivalent, preservative free Josh G [employer] Work Phone: [facility] [employer] DO Work Phone: 03-26-2017 influenza virus vacc ine, unspecified formulation [facility] 03-18-2017 influenza virus vacc ine, unspecified formulation Josh G Fur[employer] Work Phone: [facility] [facility] DO Work Phone: 02-16-2016 influenza virus vacc ine, unspecified formulation Josh G Furlong Work Phone: [facility] [employer] DO Work Phone: 03-18-2015 influenza, seasonal, injectable Josh G [employer] Work Phone: [facility] 250 DO Work Phone: 02-15-2015 influenza virus vacc ine, unspecified formulation Josh G [employer] [facility] Phone: [facility] DO Work Phone: 07-04-2014 pneumococcal conjuga te vaccine, 13 valent Josh G [employer] Work Phone: [facility] Work Phone: 07-04-2014 tetanus toxoid, redu leonel diphtheria toxoid, and acellular pertussis vaccine, adsorbed Josh Sanchez [employer] Work Phone: [place] [address] DO Work Phone: 02-22-2014 influenza virus vacc ine, whole virus Josh Sanchez [employer] Work Phone: [place] [address] DO Work Phone: 07-18-2013 influenza virus vacc ine, unspecified formulation Josh Sanchez [employer] Work Phone: [place] [address] DO Work Phone: 05-18-2011 influenza virus vacc ine, unspecified formulation Belkys Angelique [facility] 03-18-2011 influenza virus vacc ine, unspecified formulation Belkys Angelique [facility] 05-18-2009 influenza virus vacc ine, unspecified formulation Belkys Angelique [facility] 03-18-2009 influenza virus vacc ine, unspecified formulation Josh Sanchez [employer] Work Phone: [place] [address] DO Work Phone: influenza virus vacc ine, unspecified formulation Josh Sanchez [employer] Work Phone: [place] [address] DO Work Phone: Comment on above: [id number] [id number] Payers Date Payer Category Payer Self-pay [id number] 2022 Unknown 2020 Medicare [id number] 2020 Medicare [id number] 1959 Medicare [id number] 1959 Self-pay [id number] 1959 Unknown [id number] 1955 Unknown [id number] [id number]. [id number] 1955 Unknown [id number] 2.16. [id number] 1955 Unknown [id number] 2.16.84 [id number] 1955 Unknown [id number] 2.16.84 [id number] 1955 Unknown [id number] 2.16.84 [id number] 1955 Unknown [id number] 2.16.84 [id number] 1955 Unknown [id number] 2.16.84 0.1.825051.3.579.2.593 1955 Unknown [id number] 2.16.84 0.1.350223.3.579.2.593 1955 Unknown [id number] 2.16.84 0.1.947299.3.579.2.593 1955 Unknown [id number] 2.16.84 0.1.625256.3.579.2.593 1955 Unknown [id number] 2.16.8 40.1.877151.3.579.2.1068 1955 Unknown [id number] 2.16.8 40.1.550467.3.579.2.1286 1955 Unknown [id number] 2.16.840 .1.526128.3.579.2.1286 1955 Unknown [id number] 2.16.8 40.1.095957.3.579.2.727 1955 Unknown [id number] 2.16.8 40.1.854935.3.579.2.727 1955 Unknown [id number] 2.16.8 40.1.753300.3.579.2.1244 Unknown [id number] 2.16.8 40.1.612806.3.579.2.531 Unknown [id number] 2.16.8 40.1.776898.3.579.2.531 Social History Date Type Detail Facility Start: 03-19-2022 End: 05-26-2023 Alcohol use Alcohol use -[facility] [facility] DO Work Phone: Comment on above: 1-2 cups of coffee d aily; Start: 03-19-2022 End: 05-26-2023 Sex Assigned At [facility] Other Start: 04-08-2019 End: 03-19-2022 Tobacco smoking status NHIS Ex-smoker (finding) [facility] Start: 1955 Sex Assigned At Male F [facility] Start: 03-19-1974 End: 05-09-1996 History of tobacco use Current smoker [facility] Work Phone: Start: 03-19-1974 End: 05-09-1996 History of tobacco use Cigarette Smoker [facility] Work Phone: Start: 03-19-2022 End: 05-26-2023 Tobacco use and exposure Smokeless tobacco non-user [facility] Work Phone: Start: 06-18-2023 End: 06-25-2023 Alcohol intake Current drinker of alcohol (finding) [facility] Work Phone: Start: 1955 Sex Assigned At Not on file [facility] Work Phone: Start: 06-08-2023 End: 06-18-2023 Exposure to SARS-CoV-2 (event) Not sure [facility] Has the electric, [employer], oil, or water company threatened to shut off services in your home in past 12Mo No [facility] Do you belong to any clubs or organizations such as lutheran groups, unions, fraternal or athletic groups, or school groups? Yes [facility] Are you now , , , , never or living with a partner? [facility] How often to you hav e a drink containing alcohol? 4 or more times a week [facility] How many standard dr inks containing alcohol do you have on a typical day? 1 or 2 [facility] How often do you hav e 6 or more drinks on 1 occasion? Less than monthly [facility] How hard is it for y ou to pay for the very basics like food, housing, medical care, and heating Not hard at all [facility] Do you feel stress - tense, restless, nervous, or anxious, or unable to sleep at night because your mind is troubled all the time - these days [OSQ] Not at all [facility] Start: 03-20-2022 Alcohol Comment Occasional [facility] How hard is it for y ou to pay for the very basics like food, housing, medical care, and heating Not very hard [facility] Medical Equipment Procedure Code Equipment Code Equipment Origin al Text Equipment Identifier Dates Accu-Chek Carley Plus test strips TEST ONCE DAILY [id number] End: 06-29-2023 Accu-Chek Fastcl ix Lancet Drum USE ONCE DAILY DIRECTED [id number] End: 06-29-2023 Accu-Chek FastCl ix Lancing Device [id number] End: 07-02-2023 Accu-Chek Carley Plus test strips TEST ONCE DAILY [id number] Start: 06-29-2023 End: 07-02-2023 Accu-Chek Fastcl ix Lancet Drum USE ONCE DAILY DIRECTED [id number] Start: 06-29-2023 End: 07-02-2023 Accu-Chek Carley Plus test strips TEST ONCE DAILY [id number] Start: 07-03-2023 Accu-Chek Fastcl ix Lancet Drum USE ONCE DAILY DIRECTED [id number] Start: 07-03-2023 Accu-Chek FastCl ix Lancing Device [id number] Start: 07-03-2023 Accu-Chek Carley Plus test strips TEST ONCE DAILY [id number] Start: 07-03-2023 Accu-Chek Fastcl ix Lancet Drum USE ONCE DAILY DIRECTED [id number] Start: 07-03-2023 Clinical Notes 07-24-2021 to 07-02-2023 Telephone Encounter - Kenzie Richards CMA - 07/02/2023 4:40 PM ESTTelephone Encounter - Kenzie Richards CMA - 07/02/2023 4:40 PM Ruiz Ospina DO - 06/25/2023 10:00 AM EST Note Date & Type Note Facility 07-02-2023 Miscellaneous Notes Pt called and needs all GUL[employer] TESTING supplies sent to [facility] due to medicare only covering them from there. documented in this encounter [facility] 07-02-2023 Telephone encounter Note Pt called and needs all GULOSE TESTING supplies sent to [facility] due to medicare only covering them from there. [facility] 07-01-2023 Miscellaneous Notes Pt called yaritza cedeno called him stated his insurance is not covering his lancets or strips there wanted to know if you could point him in the right direction as he is not sure It sounds like a formulary issue. They should cover some type of glucometer and test strips. Have him check his formulary and see which brand is covered and then let us know. He did say when he got home he was going to call his insurance and see what was going on documented in this encounter [facility] 07-01-2023 Telephone encounter Note Pt called yaritza aid called him stated his insurance is not covering his lancets or strips there wanted to know if you could point him in the right direction as he is not sure [facility] 07-01-2023 Telephone encounter Note It sounds like a formulary issue. They should cover some type of glucometer and test strips. Have him check his formulary and see which brand is covered and then let us know. [facility] 07-01-2023 Telephone encounter Note He did say when he got home he was going to call his insurance and see what was going on [facility] 06-25-2023 History of Presen t illness Narrative Subjective Patient ID: Mike Florentino is a 67 y.o. male. Mike presents today to discuss several issues regarding his medications. He had labs done ordered by the twister doffer at another facility and is here to review them. He tried to get his Invokana filled but it was over 500 dollars and he can not afford it. He has a about a week's worth left. He is now on Medicare and has well care part D insurance. He feels he is taking a lot of medications. He knows that many of them are necessary but wants to know if he could stop the gabapentin. He read up on it and found out it was for seizures and shingles pain and he has never had either. He does have diabetic neuropathy in explain that that was the reason for prescribing it. It is commonly used for that condition. He is willing to stop it as his pain is not bad. He did stop the aspirin because when he was taking it with his other medicines he would get an upset stomach. He is also concerned that his liver might be damaged from all these medications. He is taking the metformin and he is okay with that. He has been on the Januvia for quite some time and so far that is affordable. He is not interested in switching to a weekly injectable like Ozempic or Trulicity. He was anemic on his last labs and his platelet count was slightly low. Does not have any symptoms. He does donate blood regularly usually every 6-8 weeks unless he is borderline low and he has been told that his blood count is borderline so he has not given quite as often lately. His colonoscopy was done April 08, [address] Adames in [place] and it was normal. He has been getting pain in his thighs lately. His twister doffer told him it was probably his circulation causing it. They did not think it was bad enough to investigate at this time. They did get some exercise equipment at home and he is planning on using it. He currently does not get much exercise. He is trying to watch his diet and portion sizes. He has lost weight gradually. The following portions of the patient's history were reviewed and updated as appropriate: allergies, current medications, past family history, past medical history, past social history, past surgical history, problem list, and medication reconciliation was completed including current medication and post discharge medication. Review of Systems Objective Physical Exam Vitals reviewed. Constitutional: Appearance: He is overweight. HENT: Head: Normocephalic. Eyes: General: No scleral icterus. Cardiovascular: Rate and Rhythm: Normal rate and regular rhythm. Heart sounds: Normal heart sounds. No murmur heard. Pulmonary: Effort: Pulmonary effort is normal. No respiratory distress. Breath sounds: Normal breath sounds. No wheezing, rhonchi or rales. Skin: Coloration: Skin is not ashen or pale. Neurological: General: No focal deficit present. Mental Status: He is alert and oriented to person, place, and time. Psychiatric: Mood and Affect: Mood normal. Behavior: Behavior normal. Thought Content: Thought content normal. Judgment: Judgment normal. Assessment/Plan Mike was seen today for dicuss medication. Diagnoses and all orders for this visit: Type 2 diabetes mellitus with diabetic polyneuropathy, without long-term current use of insulin ([facility]) We discussed his medications. He would like to stop his gabapentin. We will do a trial off of the medication. Is just a 300 mg dose so he will just stop it. We discussed his other medications. We would like to stay in the SGLT-2 class. He will check his formulary to see what might be preferred. Consider patient assistance. Was given Farxiga 10 mg 1 a day for 7 days as a sample to buy him more time so he can check up on his benefits. Normocytic normochromic anemia It is mild. Labs were discussed. He also has thrombocytopenia. He does donate blood regularly and that may be the reason why he is mildly anemic as it would fit a normocytic normochromic pattern. He does not want any further testing or consultation right now. Would like to have it monitored in the future. I can not say for sure that it is due to donation and there maybe something else going on. He is aware of that. Peripheral vascular disease ([facility]) Follow-up with cardiology as directed. Controlling risk factors are important. His lipids and CMP were essentially at goal. documented in this encounter [facility] 06-18-2023 History of Presen t illness Narrative Subjective Mike Florentino is a 67 y.o. 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 documented in this encounter [facility] Work Phone: 06-18-2023 Instructions Willian Sumner MA - 06/18/2023 [...] of your visit. documented in this encounter [facility] Work Phone: 03-27-2022 Evaluation note Encounter Date Diagnosis Assessment [...] sleepiness, or poor response to treatment. . [facility] Other 03-09-2022 NotePROCEDURE: XR KNEE RT 4V or > HISTORY: Pain of right knee joint ; medial knee pain, no known injury COMPARISON: None. FINDINGS: BONES:Tiny periarticular degenerative osteophytes. No fracture, dislocation, bone lesion. No significant joint space narrowing. SOFT TISSUES:No visible soft tissue swelling. EFFUSION:None visible. OTHER: Negative. IMPRESSION: 1. No acute bone abnormality. 2. Minimal degenerative changes. Electronically authenticated by: EILEEN QURESHI Date: 2021-07-24 17:01[facility] noteNo assessment information available[facility] Work Phone: Evaluation note* Diagnosis ASCVD (arteriosclerotic cardiovascular disease)- Primary Unspecified cardiovascular disease Peripheral vascular disease (CMS/HCC) Unspecified peripheral vascular disease Essential hypertension Unspecified essential hypertension Hyperlipidemia, unspecified hyperlipidemia type Other specified diabetes mellitus without complication, without long-term current use of insulin (CMS/HCC) Former smoker Personal history of tobacco use, presenting hazards to health Overweight documented in this encounter [facility] Work Phone: Evaluation note* Diagnosis Type 2 diabetes mellitus with diabetic polyneuropathy, without long-term current use of insulin ([facility])- Primary Normocytic normochromic anemia Unspecified anemia Peripheral vascular disease (CMS-HCC) Unspecified peripheral vascular disease Thrombocytopenia (CMS-HCC) Unspecified thrombocytopenia [facility] Diagnosis Type 2 diabetes mellitus with diabetic polyneuropathy, without long-term current use of insulin ([facility])- Primary [facility] Diagnosis Type 2 diabetes mellitus with diabetic polyneuropathy, without long-term current use of insulin ([facility])- Primary [facility] this encounter [facility] N[facility] - Reported* Type Description Date Medical History ROCK (obstructive sleep apnea) Medical History CAD in [place] artery Surgical History heart stent Surgical History left hip replacement [facility] Other InstructionsNot on filedocumented in this encounter [facility] SystemInstructionsNot on filedocumented in this encounter [facility] SystemInstructionsNot on filedocumented in this encounter [facility] SystemInstructionsNot on filedocumented in this encounter [facility] [employer] SystemInstructionsNot on filedocumented in this encounter [facility] for [facility] (narrative)* Consultation (Routine) - Authorized Specialty Diagnoses / Procedures Referred By Contac t Referred To Contact Cardiology Diagnoses ASCVD (arteriosclerotic cardiovascular disease) Peripheral vascular disease (CMS/HCC) Essential hypertension Hyperlipidemia, unspecified hyperlipidemia type Other specified diabetes mellitus without complication, without long-term current use of insulin ([facility]) Procedures Follow Up In Cardiology Jade Gale MD [address] [facility] [address] [place] [address] Jade Gale MD [address] [facility] [address] [place] [address] Referral ID Status Reason Start Date Expiration Date V isits Requested Visits Authorized [id number] Authorized 06/18/2023 06/17/2024 1 1 [facility] Work Phone: Summary Purpose Family History No Family History Records FoundUnknown Family Member Name Dates Details Family history [...] di sorder: Brother(V17.49, Z82.49) Status:Active Advance Directives No Advanced Directives Records Found Advance Directive Response Recorded Date/ Time Advance Directives No April 1:11pm Chief Complaint and Reason for Visit Chief Complaint Obstructive sleep ap molina Chief Complaint * MIKE FLORENTINO is being seen for a 9 month follow-up of. * Patient is in the office for follow-up for the problems noted below. Since he was last seen in the office he has made significant advances and lost 14 pounds and has been active, he has retired sincelasfebruary. His only complaint seems to be claudications [...] with tobacco use. 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 Additional Source Comments (unrecognized sect ion and content) No Status Records FoundNo Status Records FoundNo Status Records FoundNo Status Records FoundNo Status Records FoundNo Status Records FoundNo Status Records FoundNo Status Records FoundNo Status Records Found INFORMATION SOURCE (unrecogn ized section and content) DATE CREATED AUTHOR 11/06/2017 [facility] DATE CREATED AUTHOR AUTHOR'S ORGANIZ ATION 02/16/2022 [facility] DATE CREATED AUTHOR AUTHOR'S ORGANIZ ATION 02/16/2022 [facility] DATE CREATED AUTHOR AUTHOR'S ORGANIZ ATION 05/08/2022 [facility] DATE CREATED AUTHOR AUTHOR'S ORGANIZ ATION 01/07/2023 [facility] DATE CREATED AUTHOR AUTHOR'S ORGANIZ ATION 03/25/2023 [facility] DATE CREATED AUTHOR AUTHOR'S ORGANIZ ATION 06/29/2023 [facility] DATE CREATED AUTHOR AUTHOR'S ORGANIZ ATION [facility] DATE CREATED AUTHOR AUTHOR'S ORGANIZ ATION 11/18/2023 [facility] [employer] Teams (unrecognized sec tion and content) Team Status: Inactive Member Role Status Dates Josh Ospina DO Primary Care Provider Active Aryan Garcia MD Attending Provider Active Team Status: Active Member Role Status Dates Josh Ospina DO Primary Care Provider Active Needle Leader Relationship Specialty Start Date End Date LaraJosh alvarado Willy [address] [place] [address] PCP - General 05/18/99 Needle Leader Relationship Specialty Start Date End Date Josh Ospina DO [address], [place] [address] PCP - General Family Medicine 03/19/22 Needle Leader Relationship Specialty Start Date End Date Josh Ospina SuriDO [address], [place] [address] PCP - General Family Medicine 03/19/22 Needle Leader Relationship Specialty Start Date End Date Josh Ospina DO [address] [place] [address] PCP - General Family Medicine 03/19/22 Needle Leader Relationship Specialty Start Date End Date Josh Ospina DO [address] [place] [address] PCP - General Family Medicine 03/19/22 Needle Leader Relationship Specialty Start Date End Date Josh Ospina DO [address] [place] [address] PCP - General Family Medicine 03/19/22 Goals (unrecognized section and content) Goals may be documented in a n alternate section Reason for Visit (unrecogniz ed section and content) Reason Onset Date Comments Med Refill 07/01/2023 Reason Onset Date Comments Med Refill 06/29/2023 Reason Comments dicuss medication Reason Onset Date Comments Med Refill 06/23/2023 Reason Comments Follow-up 9 month FOR RECORDS [...] BE BASED ON THE PRIMARY CLINICAL RECORDS. [employer] provides no warranty or guarantee of the accuracy or completeness of information in this document.
[2023-12-18 08:11] LABS: Testosterone 239 ng/dL (264-916)
== END 2023-12-17 07:46 | disposition home or self-care (01) ==
LOC: LAB 07:46
PROVIDERS: PCP Family Medicine; Visit Provider Urology
DX: E29.1 Testicular hypofunction (principal)
CPT/HCPCS: 36415; 84403

== ENCOUNTER 2024-04-18 07:17 | Outpatient (OUT) | payer MEDICARE, OTHER, SELFPAY ==
--- OUTSIDE RECORDS SUMMARY | 2024-04-18 07:22 | XMS_ITS | CCD ---
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 Jade Sanz Attending Shantel vailable Janell, Josh Willy Primary Care Unavailab le Gale, Dr. Jade aSnz Referring Shantel vailable [facility] Unavailab le Baljinder, Dr. Jade Sanz Referring Shantel vailable Gale, Dr. Jade Sanz Attending Shantel ildable Aryan Garcia Unavailable DO Josh Ospina Primary Care Provider MD Aryan Garcia Attending Provider [phone] DR SHADY MOHAN Attending Unavailable JANELL, DR JOSH Sanchez Primary Care Unavailable FURLONG, DR JOSH Sanchez Consulting Unavailable JAMSHID, DR CARUSO Admitting Unavailable DR SHADY MOHAN Consulting Unavailable FURLOGREGG, DR JOSH Sanchez Primary [...] Unavailable Bailey, Shanice Attending Unavailable Furlong, Josh [facility] Care Unavailable Aryan Garcia Attending Unavailable Furlong, Josh [facility] Care Unavailable Aryan Garcia Admitting Unavailable Furlong Josh GONGORA Primary Care Provider Furlong Josh GONGORA Primary Care Provider JOSH OSPINA Attending Unavailable FURLONG, JOSH Sanchez Referring Unavailable FURLONG, JOSH Sanchez Primary Care Unavailable FURLONG, JOSH Sanchez Attending Unavailable FURLONG, JOSH Sanchez Referring Unavailable FURLONG, JOSH Sanchez Primary Care Unavailable Shady MOHAN Attending Unavailable MOHAN, Shady Rizo Attending Unavailable Josseline Kerr Attending Unavailable MOHANShady Admitting Unavailable MOHAN, Shady Rizo Attending Unavailable MOHANShady Attending Unavailable Furlong Josh GONGORA Primary Care Provider JADE GALE Attending Unavailable LARALONGJOSH Primary Care Unavailab le GALEJADE GE Attending Unavailable GALEJADE Referring Unavailable FURLONGJOSH Primary Care Unavailab le MOHANShady Attending Unavailable MOHAN, Shady Rizo Attending Unavailable MOHAN, Shady Rizo Attending Unavailable MOHAN, Shady Rizo Admitting Unavailable MOHAN, Shady Rizo Attending Unavailable Allergies Allergy Classification Reported Allergen(s) Allergy Type Date of Onset Reaction(s) Facility (15 sources) Ticagrelor; Translations: [Brilinta TABS] Drug Allergy 2 [facility] (2 sources) Ticagrelor; Translations: [TICAGRELOR] Drug Allergy 2 [facility] (2 sources) Bee/Wasp/Ant venom; Translations: [Bee Stings] Propensity to adverse reactions (disorder) [facility] (2 sources) No Known Medication Allergies; Translations: [No Known Medication Allergies] Propensity to adverse reactions (disorder) [facility] Repository Medications Current Medications Medication Drug Class(es) Dates Sig (Normalized) Sig (Original) aspirin 81 mg delayed release oral tablet (13 sources) Platelet Aggregation Inhibitor, Nonsteroidal Anti-inflammatory Drug [...] Aspirin Active clopidogrel 75 mg oral tablet (18 sources) P2Y12 Platelet Inhibitor Start: 04-08-2019 End: 01-11-2025 take 1 tablet by mouth once daily Clopidogrel Active 1 TAB PO Daily April 08, 2019 12:00am Clopidogrel Bisu lfate Active dapagliflozin 10 mg oral tablet (7 sources) Sodium-Glucose Cotransporter 2 Inhibitor Start: 01-12-2024 take 1 tablet by mouth in the morning dapagliflozin propanediol (FARXIGA) 10 mg tablet Take 1 tablet (10 mg total) by mouth in the morning. 30 tablet 5 01/12/2024 Active Start: 06-26-2023 take 1 tablet by jozef th in the morning dapagliflozin propanediol (FARXIGA) 10 [...] propionate 0.05 mg/actuat metered dose nasal spray (8 sources) Corticosteroid fluticasone propionate (FLONASE) 50 mcg/actuation nasal spray fluticasone propionate 50 mcg/actuation nasal spray,suspension Active fluticasone prop ionate (FLONASE) 50 mcg/actuation nasal spray fluticasone propionate 50 mcg/actuation nasal spray,suspension 0 Active gabapentin 300 mg oral capsule (12 sources) Anti-epileptic Agent Start: 04-08-2019 End: 03-22-2024 take 300 mg by mouth once daily Gabapentin Active 300 MG PO Daily April 08, 2019 12:00am Gabapentin Activ e hydroxychloroquine sulfate 200 mg oral tablet (17 sources) Antimalarial, Antirheumatic Agent Start: 04-08-2019 take 200 mg by mouth twice daily Hydroxychloroquine Active 200 MG PO Twice daily April 08, 2019 12:00am meloxicam 7.5 mg oral tablet (1 source) Nonsteroidal Anti-inflammatory Drug Start: 02-16-2024 take 1 tablet by mouth in the morning meloxicam (Mobic) 7.5 mg tablet Take 1 tablet (7.5 mg) by mouth early in the morning.. 02/16/2024 Active metFORMIN hydrochloride 500 mg oral tablet (18 sources) Biguanide Start: 03-13-2020 take 2 tablets by mouth twice daily metFORMIN (Glucophage) 500 mg tablet Take 2 tablets (1,000 mg) by mouth 2 times a day. 03/13/2020 Active Start: 04-08-2019 take 500 mg by mouth twice naldo ly Metformin Active 500 MG PO Twice daily April 08, 2019 12:00am Metformin Active nitroglycerin 0.4 mg sublingual tablet (8 sources) Nitrate Vasodilator nitroglyceri n (NITROSTAT) 0.4 MG SL tablet nitroglycerin 0.4 mg sublingual tablet Active ramipril 10 mg oral capsule (18 sources) Angiotensin Converting Enzyme Inhibitor Start: 9 take 10 mg by mouth once daily Ramipril Active 10 MG PO Daily April 08, 2019 12:00am Ramipril Active rosuvastatin calcium 10 mg oral tablet (19 sources) HMG-CoA Reductase Inhibitor Start: 04-08-2019 take 1 tablet by mouth once daily Rosuvastatin (Crestor) 10 mg Tablet Active 10 MG PO Daily April 08, 2019 12:00am Rosuvastatin Sabino cium Active Crestor Not-Taki ng sildenafil 100 mg oral tablet (15 sources) Phosphodiesterase 5 Inhibitor si ldenafil (Viagra) 100 mg tablet 1 tablet (100 mg) if needed. Active End: 06-18-2023 sildenafil (Revatio) 20 mg t ablet Take 1 tablet (20 mg) by mouth if needed. 0 06/18/2023 Discontinued (Therapy completed) Sildenafil Citra te TABS as needed Quantity: 0 Refills: 0 Ordered: 23-Apr-2021 DO Active SITagliptin 100 mg oral tablet (19 sources) Dipeptidyl Peptidase 4 Inhibitor Start: 04-08-2019 End: 06-23-2023 take 1 tablet by mouth once daily Sitagliptin Phosphate (Januvia) 100 mg Tablet Active 100 MG PO Daily April 08, 2019 12:00am Januvia Active tadalafil 5 mg oral tablet (3 sources) Phosphodiesterase 5 Inhibitor Start: 04-08-2019 take 1 tablet by mouth once daily Tadalafil (Cialis) 5 mg Tablet Active 5 MG PO Daily April 08, 2019 12:00am Cialis Not-Takin g tamsulosin hydrochloride 0.4 mg oral capsule (15 sources) alpha-Adrenergic Fani Start: 07-10-2020 take 1 capsule by mouth once daily tamsulosin (Flomax) 0.4 mg 24 hr capsule Take 1 capsule (0.4 mg) by mouth once daily. 07/10/2020 Active 1 ml testosterone cypionate 200 mg/ml injection (19 sources) Androgen Start: 12-28-2023 testosterone cypionate (Depo-Testosterone) 200 mg/mL injection INJECT 300 mg (1.5 ml) INTRAMUSCULARLY EVERY FOUR weeks 12/28/2023 Active Start: 03-17-2022 testosterone ( ANDROGEL) 20.25 mg/1.25 gram (1.62 %) gel in metered-dose pump 03/17/2022 Active Start: 08-17-2020 End: 03-22-2024 testosterone 20.25 mg/1.25 g jassi (1.62 %) gel in metered-dose pump Place on the skin. 08/17/2020 03/22/2024 Discontinued (Therapy completed) Start: 08-17-2020 Testosterone 2 0.25 MG/ACT (1.62%) Transdermal Gel Quantity: 75 Refills: 0 Ordered: 17-Aug-2020 DO Start : 17-Aug-2020 Active Start: 04-08-2019 End: 04-08-2019 Testosterone Cypionate (Depo -Testosterone) 100 mg/mL Oil Discontinued 100 MG IM EVERY 4 WEEKS April 08, 2019 12:00am April 08, 2019 11:20am Testosterone Act fide verapamil hydrochloride 240 mg extended release oral tablet (18 sources) Calcium Channel Fani Start: 04-08-2019 End: 06-18-2023 take 1 tablet by mouth once daily verapamil SR (Calan-SR) 240 mg ER tablet Indications: Essential hypertension take 1 tablet by mouth once daily 90 tablet 3 11/18/2023 Active Verapamil HCl Ac tive Completed/Discontinued Medications Medication Drug Class(es) Dates Sig (Normalized) Sig (Original) canagliflozin 300 mg oral tablet (3 sources) Sodium-Glucose Cotransporter 2 Inhibitor Start: 06-22-2023 End: 06-26-2023 take 1 tablet by mouth in the morning canagliflozin (INVOKANA) 300 mg tablet Indications: Type 2 diabetes mellitus with diabetic polyneuropathy, without long-term current use of insulin ([facility]) Take 1 tablet (300 mg total) by mouth in the morning. 30 tablet 5 06/22/2023 06/26/2023 Discontinued (Formulary change) glimepiride 2 mg oral tablet (3 sources) Sulfonylurea Start: 04-08-2019 End: 04-08-2019 take [...] hydrochloride 240 mg extended release oral tablet (3 sources) Angiotensin Converting Enzyme Inhibitor, Calcium Channel Fani Start: 04-08-2019 End: 04-08-2019 take 1 tablet by mouth once daily Trandolapril-Verap malou (Tarka) 4-240 mg Tablet, Ir - Er, Biphasic 24hr Discontinued 1 TAB PO Daily April 08, 2019 12:00am April 08, 2019 11:20am Tarka Not-Taking Problems Active Problems Problem Classification Problem Date Documented Date Episodic/Chronic Coagulation and hemorrhagic disorders (8 sources) Thrombocytopenic disorder; Translations: [Thrombocytopenia, unspecified] Onset: 06-25-2023 06-25-2023 Chronic Coronary atherosclerosis and other heart disease (20 sources) Arteriosclerotic vascular disease; Translations: [Cardiovascular disease, unspecified] Onset: 03-19-2022 06-18-2023 Chronic Deficiency and other anemia (1 source) Anemia; Translations: [Anemia, unspecified] Onset: 06-19-2023 06-19-2023 Episodic Diabetes mellitus with complications (14 sources) Type 2 diabetes mellitus with diabetic neuropathy, unspecified; Translations: [Neuropathy due to diabetes mellitus] Onset: 01-12-2022 03-19-2022 Chronic Diabetes mellitus without complication (20 sources) Diabetes mellitus; Translations: [Diabetes mellitus without mention of complication, type II or unspecified type, not stated as uncontrolled] Onset: 03-19-2022 06-18-2023 Chronic Disorders of lipid metabolism (20 sources) Hyperlipidemia; Translations: [Other and unspecified hyperlipidemia] Onset: 07-16-2021 06-18-2023 Chronic Essential hypertension (20 sources) Essential hypertension; Translations: [Unspecified essential hypertension] Onset: 07-16-2021 Chronic Hyperplasia of prostate (13 sources) Benign prostatic hyperplasia with lower urinary tract symptoms; Translations: [Benign prostatic hypertrophy with outflow obstruction] Onset: 12-31-2016 Chronic Osteoarthritis (1 source) Primary generalized (osteo)arthritis; Translations: [PRIMARY GENERALIZED OSTEOARTHRITIS] Onset: 07-16-2021 Chronic Other and unspecified benign neoplasm (1 source) Tubular adenoma of colon; Translations: [Tubular adenoma of colon] Episodic Other endocrine disorders (5 sources) Testicular hypofunction; Translations: [TESTICULAR HYPOFUNCTION] Onset: 10-26-2021 Chronic Other male genital disorders (9 sources) Male erectile dysfunction, unspecified; Translations: [Impotence of organic origin] Onset: 10-29-2021 03-19-2022 Chronic Other nutritional; endocrine; and metabolic disorders (7 sources) Overweight in adulthood with body mass index of 25 or more but less than 30; Translations: [Overweight] Onset: 03-22-2024 03-22-2024 Episodic Other nutritional; endocrine; and metabolic disorders (3 sources) Body mass index (BMI) 29.0-29.9, adult; Translations: [Body mass index (BMI) 29.0-29.9, adult] Onset: 03-22-2024 Episodic Other screening for suspected conditions (not mental disorders or infectious disease) (14 sources) History of adenomatous polyp of colon; Translations: [Encounter for screening for malignant neoplasm of colon] Onset: 01-10-2022 04-08-2019 Episodic Peripheral and visceral atherosclerosis (20 sources) Intermittent claudication; Translations: [Peripheral vascular disease, unspecified] Onset: 03-19-2022 Resolved: 05-04-2023 06-18-2023 Chronic Comment on above: Status post SFA clinton oplasty 2008; Residual codes; unclassified (7 sources) Sleep apnea; Translations: [Unspecified sleep apnea] Onset: 05-26-2023 05-26-2023 Chronic Residual codes; unclassified (11 sources) Obstructive sleep apnea syndrome; Translations: [Obstructive sleep apnea (adult) (pediatric)] Onset: 03-19-2022 03-19-2022 Chronic Residual codes; unclassified (1 source) Obstructive sleep apnea (adult) (pediatric) Chronic Residual codes; unclassified (1 source) Obstructive sleep apnea (adult)(pediatric); Translations: [Obstructive sleep apnea (adult) (pediatric)] Onset: 03-27-2022 Chronic Residual codes; unclassified (2 sources) Sleep apnea, unspecified; Translations: [Sleep apnea, unspecified] Onset: 05-26-2023 Chronic Residual codes; unclassified (1 source) Family history of colorectal cancer; Translations: [Family hx of colorectal cancer] Episodic Rheumatoid arthritis and related disease (5 sources) Rheumatoid arthritis 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; Translations: [Rheumatoid arthritis, unspecified] Onset: 07-13-2021 Chronic Thyroid disorders (1 source) Hypothyroidism Onset: 05-04-2023 Chronic Unclassified (8 sources) Hypogonadism; Translations: [Hypogonadism] Onset: 10-06-2017 03-19-2022 Unclassified (1 source) dicuss medication Onset: 06-25-2023 Past or Other Problems Problem Classification Problem Date Documented Date Episodic/Chronic Deficiency and other anemia (9 sources) Normocytic normochromic anemia; Translations: [Anemia, unspecified] Onset: 06-19-2023 06-25-2023 Episodic Mood disorders (8 sources) Mood disorders Onset: 05-04-2023 Resolved: 06-25-2023 05-04-2023 Other aftercare (1 source) Other senior living (current) drug therapy; Translations: [OTH SKILLED NURSING CURRENT DRUG THERAPY] Onset: 07-16-2021 Episodic Other and unspecified benign neoplasm (8 sources) Tubular adenoma ; Translations: [Benign neoplasm, unspecified site] Onset: 03-19-2022 03-19-2022 Episodic Other circulatory disease (2 sources) History of claudication; Translations: [Personal history of unspecified circulatory disease] Resolved: 02-04-2022 Episodic Other circulatory disease (3 sources) Femoral bruit; Translations: [Other symptoms involving cardiovascular system] Onset: 05-26-2023 05-26-2023 Episodic Other connective tissue disease (1 source) Impingement syndrome of right shoulder; Translations: [Impingement syndrome of right shoulder] Onset: 07-06-2017 Episodic Other connective tissue disease (8 sources) Right rotator cuff syndrome; Translations: [Unspecified rotator cuff tear or rupture of right shoulder, not specified as traumatic] Onset: 03-19-2022 03-19-2022 Episodic Other connective tissue disease (8 sources) Impingement syndrome of shoulder region; Translations: [Impingement syndrome of unspecified shoulder] Onset: 03-19-2022 03-19-2022 Episodic Other connective tissue disease (8 sources) Radial styloid tenosynovitis; Translations: [Radial styloid tenosynovitis [de Quervain]] Onset: 09-11-2016 03-19-2022 Episodic Other non-traumatic joint disorders (4 sources) Pain in right knee; Translations: [PAIN IN RIGHT KNEE] Onset: 07-24-2021 Episodic Other nutritional; endocrine; and metabolic disorders (8 sources) Obesity; Translations: [Obesity, unspecified] Onset: 03-19-2022 Resolved: 03-19-2022 03-19-2022 Chronic Other nutritional; endocrine; and metabolic disorders (2 sources) Overweight; Translations: [Overweight] Onset: 06-18-2023 06-18-2023 Episodic Other nutritional; endocrine; and metabolic disorders (2 sources) Overweight; Translations: [Overweight] Onset: 05-04-2023 Episodic Screening and history of mental health and substance abuse codes (11 sources) Ex-smoker; Translations: [Personal history of tobacco use] Onset: 06-18-2023 06-18-2023 Episodic Unclassified (2 sources) Onset: 06-18-2023 Resolved: 03-22-2024 06-18-2023 Results Test Name Value Interpretation Reference Range Facility Ambulatory Visit Summaryon 1 06-04-2023 Ambulatory Visit Summary Ambulatory Visit Summary MIKE FLORENTINO :1955 Visit Date:04/04/2024 Ambulatory Visit Instructions Your Diagnosis Hypogonadism male Your Care Team Attending Physician - JAMSHID VILLAVICENCIO, Shady Rizo Primary Care Physician - JOSH OSPINA DO This Is Your Medications List clopidogrel (clopidogrel 75 mg Tab) empagliflozin (Jardiance 10 mg oral tablet) gabapentin (gabapentin 300 mg Cap) meloxicam (meloxicam 7.5 mg Tab) metformin (metformin 500 mg Tab) ramipril (ramipril 10 mg Cap) rosuvastatin (Crestor 10 mg Tab) sildenafil (sildenafil 100 mg Tab) sitagliptin (Januvia 100 mg Tab) tamsulosin (Flomax 0.4 mg Cap) testosterone (testosterone cypionate 200 mg/mL IM Mavis) Procedures Performed Arthroplasty of the hip (03/01/2018), Carpal tunnel release (10/01/2017), Carpal tunnel release (09/17/2017), Arthroscopy of shoulder (08/06/2017), left shoulder arthroscopy (05/04/2014), Cystoscope (09/04/2009), CORONARY ARTERY STENT INSERTION x2, Hernia repair, STENT INSERTION RIGHT LEG. What to do next Scheduled Follow-Up Appointments Thursday 1:30 PM EST With: JAMSHID VILLAVICENCIO, Shady Rizo Where: [facility] [address] [address]- Medications What How Much When Instructions Unchanged clopidogrel (clopidogrel 75 mg Tab) 1 Tablets By Mouth Every day Unchanged empagliflozin (Jardiance 10 mg oral tablet) 90 EA, take 1 tablet by mouth once daily Unchanged gabapentin (gabapentin 300 mg Cap) 1 Capsules By Mouth Every day Unchanged meloxicam (meloxicam 7.5 mg Tab) 1 Tablets Unchanged metformin (metformin 500 mg Tab) 2 Tablets By Mouth 2 times a day Unchanged ramipril (ramipril 10 mg Cap) 1 Capsules By Mouth Every day Unchanged rosuvastatin (Crestor 10 mg Tab) 1 Tablets By Mouth Once a day (at bedtime) Unchanged sildenafil (sildenafil 100 mg Tab) 1 Tablets By Mouth As Directed as needed for Other (see comment) Take 1 hour prior to sexual activity. Do not exceed more than 100 mg (1 tab) within 24 hours. Unchanged sitagliptin (Januvia 100 mg Tab) 1 Tablets By Mouth Every day Unchanged tamsulosin (Flomax 0.4 mg Cap) 1 Capsules By Mouth 2 times a day Unchanged testosterone (testosterone cypionate 200 mg/ mL IM Mavis) 300 Milligram Intramuscular Every 4 weeks Medications and Immunizations Administered Given Depo-Testosterone 200 mg/mL intramuscular solution, 300 mg, IntraMuscular. For: Hypogonadism male Allergies Bee Stings (Unknown) No Known Medication Allergies Problems Ongoing - Any problem that you are currently receiving treatment for. Arthritis BPH with urinary obstruction CAD - Coronary artery disease Diabetes Diabetic neuropathy Former smoker Glucosuria Hypercholesterolemia Hypertension Hypogonadism male Impotence Low serum testosterone level Nocturia Obesity.. Weak urinary stream Historical - Any problem that you are no longer receiving treatment for. Rotator cuff tear Patient Survey You may receive a survey via text or e-mail asking about your office visit. Please share your experience with us by completing your survey. We appreciate your feedback and thank you for choosing us for your care. [facility] Ambulatory Visit Summaryon 0 01-12-2024 Ambulatory Visit Summary Ambulatory Visit Summary JUAN JOSÉ FLORENTINOF[place]an [place] :1955 Visit Date:01/12/2024 Ambulatory Visit Instructions Your Diagnosis Hypogonadism male Your Care Team Attending Physician - Cirilo VILLAVICENCIO, Josseline Teran Primary Care Physician - JOSH OSPINA DO This Is Your Medications List clopidogrel (clopidogrel 75 mg Tab) empagliflozin (Jardiance 10 mg oral tablet) gabapentin (gabapentin 300 mg Cap) meloxicam (meloxicam 7.5 mg Tab) metformin (metformin 500 mg Tab) ramipril (ramipril 10 mg Cap) rosuvastatin (Crestor 10 mg Tab) sildenafil (sildenafil 100 mg Tab) sitagliptin (Januvia 100 mg Tab) tamsulosin (Flomax 0.4 mg Cap) testosterone (testosterone cypionate 200 mg/mL IM Mavis) Procedures Performed Arthroplasty of the hip (03/01/2018), Carpal tunnel release (10/01/2017), Carpal tunnel release (09/17/2017), Arthroscopy of shoulder (08/06/2017), left shoulder arthroscopy (05/04/2014), Cystoscope (09/04/2009), CORONARY ARTERY STENT INSERTION x2, Hernia repair, STENT INSERTION RIGHT LEG. What to do next Scheduled Follow-Up Appointments Thursday 9:30 AM EDT With: Where: [facility] [place] [id number] [place] [address]- Thursday 8:45 AM EST With: JAMSHID VILLAVICENCIO, Shady Rizo Where: [facility] [address] [address]- Medications What How Much When Instructions Unchanged clopidogrel (clopidogrel 75 mg Tab) 1 Tablets By Mouth Every day Unchanged empagliflozin (Jardiance 10 mg oral tablet) 90 EA, take 1 tablet by mouth once daily Unchanged gabapentin (gabapentin 300 mg Cap) 1 Capsules By Mouth Every day Unchanged meloxicam (meloxicam 7.5 mg Tab) 1 Tablets Unchanged metformin (metformin 500 mg Tab) 2 Tablets By Mouth 2 times a day Unchanged ramipril (ramipril 10 mg Cap) 1 Capsules By Mouth Every day Unchanged rosuvastatin (Crestor 10 mg Tab) 1 Tablets By Mouth Once a day (at bedtime) Unchanged sildenafil (sildenafil 100 mg Tab) 1 Tablets By Mouth As Directed as needed for Other (see comment) Take 1 hour prior to sexual activity. Do not exceed more than 100 mg (1 tab) within 24 hours. Unchanged sitagliptin (Januvia 100 mg Tab) 1 Tablets By Mouth Every day Unchanged tamsulosin (Flomax 0.4 mg Cap) 1 Capsules By Mouth 2 times a day Unchanged testosterone (testosterone cypionate 200 mg/ mL IM Mavis) 300 Milligram Intramuscular Every 4 weeks Medications and Immunizations Administered Given Depo-Testosterone 200 mg/mL intramuscular solution, 300 mg, IntraMuscular. For: Hypogonadism male Allergies Bee Stings (Unknown) No Known Medication Allergies Problems Ongoing - Any problem that you are currently receiving treatment for. Arthritis BPH with urinary obstruction CAD - Coronary artery disease Diabetes Diabetic neuropathy Former smoker Glucosuria Hypercholesterolemia Hypertension Hypogonadism male Impotence Low serum testosterone level Nocturia Obesity.. Weak urinary stream Historical - Any problem that you are no longer receiving treatment for. Rotator cuff tear Patient Survey You may receive a survey via text or e-mail asking about your office visit. Please share your experience with us by completing your survey. We appreciate your feedback and thank you for choosing us for your care. [facility] Ambulatory Visit Summaryon 0 12-28-2023 Ambulatory Visit Summary Ambulatory Visit Summary MIKE FLORENTINO :1955 Visit Date:12/28/2023 Ambulatory Visit Instructions Your Diagnosis Hypogonadism male BPH with urinary obstruction Impotence Your Care Team Attending Physician - JAMSHID VILLAVICENCIO, Shady Rizo Primary Care Physician - JOSH OSPINA DO This Is Your Medications List sildenafil (sildenafil 100 mg Tab) testosterone (testosterone cypionate 200 mg/mL IM Mavis) Contact prescribing physician if questions or concerns clopidogrel (clopidogrel 75 mg Tab) empagliflozin (Jardiance 10 mg oral tablet) gabapentin (gabapentin 300 mg Cap) meloxicam (meloxicam 7.5 mg Tab) metformin (metformin 500 mg Tab) ramipril (ramipril 10 mg Cap) rosuvastatin (Crestor 10 mg Tab) sitagliptin (Januvia 100 mg Tab) tamsulosin (Flomax 0.4 mg Cap) [Image Removed: STOP]Stop taking these medications tamsulosin (Flomax 0.4 mg Cap) Procedures Performed Arthroplasty of the hip (03/01/2018), Carpal tunnel release (10/01/2017), Carpal tunnel release (09/17/2017), Arthroscopy of shoulder (08/06/2017), left shoulder arthroscopy (05/04/2014), Cystoscope (09/04/2009), CORONARY ARTERY STENT INSERTION x2, Hernia repair, STENT INSERTION RIGHT LEG. Discharge Vitals Temperature (Temporal Artery) 37 ?C Heart Rate (Peripheral) 65 Respiratory Rate 16 Blood Pressure 118/68 Height 188 cm Height 74 in Weight 96.1 kg Weight 211.42 lb BMI 27.19 What to do next Scheduled Follow-Up Appointments Thursday 8:00 AM EDT With: Where: [facility] [address] [place] [address]- Thursday 8:45 AM EST With: Shady MOHAN MD Where: [facility] [address] [place] [address]- You Need to Schedule the Following Appointments Follow Up with Shady MOHAN MD, URL When: Where: [facility] [address], [facility] [place] [address]- Medications What How Much When Instructions Changed sildenafil (sildenafil 100 mg Tab) 1 Tablets By Mouth As Directed as needed for Other (see comment) Take 1 hour prior to sexual activity. Do not exceed more than 100 mg (1 tab) within 24 hours. Pickup at [facility] Changed testosterone (testosterone cypionate 200 mg/ mL IM Mavis) 300 Milligram Intramuscular Every 4 weeks Pickup at [facility] Unchanged clopidogrel (clopidogrel 75 mg Tab) 1 Tablets By Mouth Every day Contact prescribing physician if questions or concerns Unchanged empagliflozin (Jardiance 10 mg oral tablet) 90 EA, take 1 tablet by mouth once daily Contact prescribing physician if questions or concerns Unchanged gabapentin (gabapentin 300 mg Cap) 1 Capsules By Mouth Every day Contact prescribing physician if questions or concerns Unchanged meloxicam (meloxicam 7.5 mg Tab) 1 Tablets Contact prescribing physician if questions or concerns Unchanged metformin (metformin 500 mg Tab) 2 Tablets By Mouth 2 times a day Contact prescribing physician if questions or concerns Unchanged ramipril (ramipril 10 mg Cap) 1 Capsules By Mouth Every day Contact prescribing physician if questions or concerns Unchanged rosuvastatin (Crestor 10 mg Tab) 1 Tablets By Mouth Once a day (at bedtime) Contact prescribing physician if questions or concerns Unchanged sitagliptin (Januvia 100 mg Tab) 1 Tablets By Mouth Every day Contact prescribing physician if questions or concerns Unchanged tamsulosin (Flomax 0.4 mg Cap) 1 Capsules By Mouth 2 times a day Contact prescribing physician if questions or concerns Pharmacy Information [facility]: [address] [place], [place] [id number] [phone] What How Much When Comments Stop Taking tamsulosin (Flomax 0.4 mg Cap) 1 Capsules By Mouth 2 times a day Allergies Bee Stings (Unknown) No Known Medication Allergies Problems Ongoing - Any problem that you are currently receiving treatment for. Arthritis BPH with urinary obstruction CAD - Coronary artery disease Diabetes Diabetic neuropathy Former smoker Glucosuria Hypercholesterolemia Hypertension Hypogonadism male Impotence Low serum testosterone level Nocturia Obesity.. Weak urinary stream Historical - Any problem that you are no longer receiving treatment for. Rotator cuff tear Patient Survey You may receive a survey via text or e-mail asking about your office visit. Please share your experience with us by completing your survey. We appreciate your feedback and thank you for choosing us for your care. Education Materials Hypogonadism, Male Male hypogonadism is a condition of having a level of testosterone that is lower than normal. Testosterone is a chemical, or hormone, that is made mainly in the testicles. In boys, testosterone is responsible for the development of male characteristics duri (more content not included)... Normal [facility] PSA Totalon 12-28-2023 Prostate specific Ag [Mass/Vol] 0.5 ng/mL Normal 0.1-3.5 [facility] Comment on above: Result Comment: The concentration of PSA determined by different manufacturers can vary due to differences in assay methods and reagent specificity. Values obtained from different assay methods cannot be used interchangeably. The methodology used for this result was chemiluminescence using [employer] Access Hybritech PSA reagent. Performed By: #### 1 [id number] #### [facility] [address] [place] [address] Urology Office/Clinic Noteon 12-28-2023 Urology Office/Clinic Note Urology Office/Clinic Note Chief Complaint BPH with urinary obstruction HPI Staff 1 yr w/ testosterone level. Dx: BPH with obstruction, hypogonadism, impotence, glucosuria. S/p Evolve of prostate 2009. *Tamsulosin 0.4mg bid, Sildenafil 100mg prn, and Androgel 4 pumps daily Previous T level 06/19/23 - 329 & 7.9 free Current T level 12/17/23 - 239 Dysuria: no Incomplete bladder emptying: no Hematuria: no Frequency: no Urgency: no Nocturia: only once in a while Stream: a little straining Leaking: no Post void dripping: yes Wearing pads/ Depends: no Urge incontinence: no Stress incontinence: no Incontinence without Sensory Awareness: no Abdominal pain: no Flank pain: no Sexual complaints: no History of Present Illness Tests reviewed: reviewed UA, T levels I have reviewed the previous health record information and history for this patient from Dr. Mohan. I have reviewed and verified the staff HPI to be accurate for this encounter. Review of Systems PHQ Score Initial Depression Screen Score: 0 SCORE ROS - Provider Constitutional: denies weight loss, denies hot flashes. Eyes: denies eye problems. Gastrointestinal: denies nausea, denies vomiting. Cardiovascular: denies chest pain or angina. Integumentary: no dryness Musculoskeletal: denies musculoskeletal symptoms. ENMT: denies otolaryngeal symptoms. Respiratory: no shortness of breath. Heme/Lymph: denies easy bleeding tendency, denies easy bruising tendency. Psychiatric: no confusion, no anxiety. Genitourinary: See HPI. Physical Exam Vitals & Measurements T: 37 ?C(Temporal Artery) HR: 65(Peripheral) RR: 16 BP: 118/68 HT: 74 in HT: 188 cm WT: 96.1 kg WT: 211.42 lb BMI: 27.19 General Appearance: alert, no distress, well nourished, well developed male. Assessment/Plan 1. Hypogonadism male (E29.1: Testicular hypofunction) Testosterone (ref range 264-916): 04/26/22 - 229 10/28/22 - 377 06/19/23 - 329 & 7.9 free 12/17/23 - Using Androgel 4 pumps daily. Most recent T level low for absolute and age-adjusted ranges but prior level was good. Discussed options including switch to T IM injections or cont with the current androgel regimen since his T level has been wnl in the past on this dose. Must have fluctuation in testosterone production by testicles. Recommended GoodRx if insurance coverage is poor. Pt elects to switch to T injections. Follow up 4 mos with T level or sooner if needed. Pt understands and agrees with plan. -D/c Androgel and start Testosterone IM 300 mg q4ks. SEs discussed. Rx sent to [facility]. -Schedule nursing visits q4wks for T injections. -Pt knows to get T level drawn exactly retirement in-between injections before 10 am. 2. BPH with urinary obstruction (N40.1: Benign prostatic hyperplasia with lower urinary tract symptoms) PSA: 12/11/20 - 0.69 04/26/22 - 0.43 S/p Evolve of prostate 2009. UA today negative for blood and infection. Taking Tamsulosin 0.4 mg bid. Some post void dribbling. -Use TP to dab excess urine. -PSA to be drawn IO today. 3. Impotence (N52.9: Male erectile dysfunction, unspecified) Sildenafil 100 mg prn. Using occasionally. Refill sent to [facility]. Follow-up With When Contact Information JAMSHID VILLAVICENCIO, Shady Rizo, URL [facility] [address], [place] [address]- Additional Instructions: 4 mos with T level. schedule nursing visits q4wks for t injections. Patient Education Hypogonadism, Male I, Kaia Valdez, personally scribed for Dr. Mohan on 12/28/2023 13:08:02. . Documentation recorded by the scribe, Kaia Valdez, accurately reflects the services(s) I performed and decisions made by me. Authenticated by Dr. Mohan on 12/28/2023 13:12:11. Problem List/Past Medical History Ongoing Arthritis BPH [...] 20.25 mg/1.25 g (1.62%) transdermal gel, 4 pump, Topical, qAM, 5 refills AndroGel Pump 20.25 mg/1.25 g (1.62%) transdermal gel, 4 pumps, Topical, qAM, 5 refills clopidogrel 75 mg Tab, 75 mg= 1 tab(s), Oral, Daily Crestor 10 mg Tab, 10 mg= 1 tab(s), Oral, Once a day (at bedtime) Flomax 0.4 mg Cap, 0.4 mg= 1 cap(s), Oral, BID, 3 refills Flomax 0.4 mg Cap, 0.4 mg= 1 cap(s), Oral, BID, 3 refills gabapentin 300 mg Cap, 300 mg= 1 cap(s), Oral, Daily Caio (more content not included)... [facility] Comment on above: Result Comment: Elec tronically Signed By: Shady MOHAN MD\.br\Date and Time Signed: 12/28/23 13:12 EDT\.br\Electronically Co-Signed By: Kaia Valdez\.br\Date and Time Co-Signed: 12/28/23 13:08 EDT Pre-Certification Formon Pre-Certification Form [id number]#1.0 0TIFF [facility] Pre-Certification Formon Pre-Certification Form [id number]#1.0 0TIFF [facility] Lab Reportson 06-30-2023 Lab Reports [id number]#1.0 0TIFF [facility] Lab Reportson 06-20-2023 Lab Reports [id number]#1.0 0TIFF [facility] Pre-Certification Formon Pre-Certification Form [id number]#1.0 0TIFF [facility] Complete Blood Count Auto Di ffon 03-17-2023 Basophils (Bld) [#/Vol] 0.0 10*3/uL Normal 0.0-0.2 [facility] Comment on above: Performed By: #### C MP, ESR, CBC #### [facility] [address] Basophils/100 WBC (Bld) 0.3 % Normal . [facility] Comment on above: Performed By: #### C MP, ESR, CBC #### [facility] [address] Eosinophils (Bld) [#/Vol] 0.1 10*3/uL Normal 0.0-0.45 [facility] Comment on above: Performed By: #### C MP, ESR, CBC #### [address] Eosinophils/100 WBC (Bld) 1.2 % Normal . [facility] Comment on above: Performed By: #### C MP, ESR, CBC #### [address] Erythrocyte distribution width (RBC) [Ratio] 14.1 % Normal 12.0-14.8 [facility] Comment on above: Performed By: #### C MP, ESR, CBC #### [address] Hematocrit (Bld) [Volume fraction] 38.4 % Low 38.8-50.0 [facility] Comment on above: Performed By: #### C MP, ESR, CBC #### [place] [address] [place] Hemoglobin (Bld) [Mass/Vol] 13.1 g/dL Normal 13.0-17.0 [facility] Comment on above: Performed By: #### C MP, ESR, CBC #### [place] [address] [place] Lymphocytes (Bld) [#/Vol] 1.0 10*3/uL Normal 1.00-4.8 [facility] Comment on above: Performed By: #### C MP, ESR, CBC #### [place] [address] [place] Lymphocytes/100 WBC (Bld) 22.5 % Normal . [facility] Comment on above: Performed By: #### C MP, ESR, CBC #### [address] MCH (RBC) [Entitic mass] 31.1 pg Normal 27.5-35.2 [facility] Comment on above: Performed By: #### C MP, ESR, CBC #### [address] MCV (RBC) [Entitic vol] 91.2 fL Normal 83.5-101 [facility] Comment on above: Performed By: #### C MP, ESR, CBC #### [address] Mean Corpuscular HGB Conc 34.1 g/dL Normal 32.5-35.6 [facility] Comment on above: Performed By: #### C MP, ESR, CBC #### [address] Monocytes (Bld) [#/Vol] 0.3 10*3/uL Normal 0.0-0.8 [facility] Comment on above: Performed By: #### C MP, ESR, CBC #### [address] Monocytes/100 WBC (Bld) 7.3 % Normal . [facility] Comment on above: Performed By: #### C MP, ESR, CBC #### [address] Neutrophils (Bld) [#/Vol] 3.1 10*3/uL Normal 1.8-7.7 [facility] Comment on above: Performed By: #### C MP, ESR, CBC #### [address] Neutrophils/100 WBC (Bld) 68.7 % Normal . [facility] Comment on above: Performed By: #### C MP, ESR, CBC #### [address] NRBC% 0.0 /100{WBC} Normal 0-0.5 [facility] Comment on above: Performed By: #### C MP, ESR, CBC #### [address] Platelet mean volume (Bld) [Entitic vol] 9.7 fL Normal 6.6-10.1 [facility] Comment on above: Performed By: #### C MP, ESR, CBC #### [address] Platelets (Bld) [#/Vol] 144 10*3/uL Low 150-450 [facility] Comment on above: Performed By: #### C MP, ESR, CBC #### [address] RBC (Bld) [#/Vol] 4.21 10*6/uL Normal 3.90-5.60 [facility] Comment on above: Performed By: #### C MP, ESR, CBC #### [address] WBC (Bld) [#/Vol] 4.5 10*3/uL Normal 4.1-10.5 [facility] Comment on above: Performed By: #### C MP, ESR, CBC #### [address] Comprehensive Metabolic Pane jerrell 03-17-2023 Albumin [Mass/Vol] 4.5 g/dL Normal 3.5-5.7 [facility] Comment on above: Performed By: #### C MP, ESR, CBC #### [address] Albumin/Globulin [Mass ratio] 2.0 {ratio} Normal [facility] Comment on above: Performed By: #### C MP, ESR, CBC #### [address] ALP [Catalytic activity/Vol] 43 U/L Normal 34-104 [facility] Comment on above: Result Comment: PERF ORMED BY: [place] [address] PATHOLOGIST [employer] BALDEMAR MCKINLEY M.D. Performed By: #### C MP, ESR, CBC #### [address] ALT [Catalytic activity/Vol] 14 U/L Normal 7-52 [facility] Comment on above: Performed By: #### C MP, ESR, CBC #### [address] Anion gap [Moles/Vol] 10.2 mmol/L Normal 6.0-15.0 [facility] Comment on above: Performed By: #### C MP, ESR, CBC #### [address] AST [Catalytic activity/Vol] 13 U/L Normal 13-39 [facility] Comment on above: Performed By: #### C MP, ESR, CBC #### [address] Bilirubin [Mass/Vol] 0.6 mg/dL Normal 0.3-1.0 [facility] Comment on above: Performed By: #### C MP, ESR, CBC #### [address] Calcium [Mass/Vol] 9.5 mg/dL Normal 8.6-10.3 [facility] Comment on above: Performed By: #### C MP, ESR, CBC #### [address] Chloride [Moles/Vol] 100 mmol/L Normal 98-107 [facility] Comment on above: Performed By: #### C MP, ESR, CBC #### [address] CO2 [Moles/Vol] 30.5 mmol/L Normal 21.0-31.0 [facility] Comment on above: Performed By: #### C MP, ESR, CBC #### [address] Creatinine [Mass/Vol] 0.98 mg/dL Normal 0.70-1.30 [facility] Comment on above: Performed By: #### C MP, ESR, CBC #### [facility] [address] [place] [address] [place] GFR/1.73 sq M.predicted MDRD (S/P/Bld) [Vol rate/Area] mL/min/{1.73_m2} Normal [facility] Comment on above: Performed By: #### C MP, ESR, CBC #### [facility] [address] Globulin (S) [Mass/Vol] 2.3 g/dL Normal [facility] Comment on above: Performed By: #### C MP, ESR, CBC #### [address] Glucose [Mass/Vol] 177 mg/dL High 70-100 [facility] Comment on above: Result Comment: [place] Glucose Reference Range is dependent on time and content of last meal. Glucose of more than 200 mg/dL in a nonstressed, ambulatory subject supports the diagnosis of Diabetes Mellitus. ADA recommended reference range Performed By: #### C MP, ESR, CBC #### [address] Potassium [Moles/Vol] 4.7 mmol/L Normal 3.5-5.1 [facility] Comment on above: Performed By: #### C MP, ESR, CBC #### [place] [address] [place] Protein [Mass/Vol] 6.8 g/dL Normal 6.4-8.9 [facility] Comment on above: Performed By: #### C MP, ESR, CBC #### [place] [address] [place] Sodium [Moles/Vol] 136 mmol/L Normal 136-145 [facility] Comment on above: Performed By: #### C MP, ESR, CBC #### [place] [address] [place] Urea nitrogen [Mass/Vol] 16 mg/dL Normal 7-25 [facility] Comment on above: Performed By: #### C MP, ESR, CBC #### [facility] [address] Erythrocyte Sedimentation Ra riya 03-17-2023 ESR (Bld) [Velocity] 15 mm/h Normal 0-19 [facility] Comment on above: Result Comment: PERF ORMED BY: [place] [address] PATHOLOGIST [employer] BALDEMAR MCKINLEY M.D. Performed By: #### C MP, ESR, CBC #### [facility] [address] VASC LAB Abdominal Aorta/Isela ac/IVC Ultraon 01-05-2023 VASC LAB Abdominal Aorta/Iliac/IVC Ultra [address], [address] [place] [address] Vascular Lab Report Abdominal Aorta Iliac Ultrasound/IVC Ultrasound Patient Name: MIKE Emery FLORENTINO [place] Physician: [id number] Jade Gale MD, [facility] Study Date: 01/05/2023 Referring JADE GALE Physician: MRN/PID: [id number] PCP: Josh Ospina MD Accession/Order#: [id number] CC Report to: Date of : 1955 Technologist: Deidre Jimenez RD, [facility] Gender: M Technologist 2: Admission Status: Outpatient Location Performed: [facility] Diagnosis/ICD: S75-Ogdeutdyq primary hypertension; R09.89-Bruit; I73.9-Peripheral vascular disease, unspecified Indication: ASCVD, Former Smoker, 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 Imaging AND Doppler Findings: AORTA AP Lateral PSV Proximal 1.49 cm 1.36 cm 101.0 cm/s Mid 1.55 cm 1.43 cm 97.0 cm/s Distal 1.57 cm 1.51 cm 72.0 cm/s RIGHT AP Lateral PSV FRANCISCO Proximal 1.08 cm 0.81 cm 147.00 cm/s LEFT AP Lateral PSV FRANCISCO Proximal 0.83 cm 0.96 cm 94.00 cm/s [id number] Jade Gale MD, FACC Final Normal [facility] TESTOSTERONE, TOTALon 2021 Testosterone [Mass/Vol] 229 ng/dL Critically low 264-916 [facility] Comment on above: Result Comment: Adul t male reference interval is based on a population of healthy nonobese males (BMI <30) between 19 and 39 years old. beverly Kelly.al. JCEM 2017,102;7718-7422. PMID: [id number]. Performed By: #### T ESTTOT ####[facility] [address] [place], [place] [address]CzAlex Carranza Office Visit (Cardiology)on 02-04-2022 Follow-up visit [...] Weight Tips; Status:Complete - Retrospective Authorization; Done: [id number] Some eating tips that can help you lose weight.; Status:Complete - Retrospective Authorization; Done: [id number] SocHx: Former smoker Tobacco Use Screening; Status:Complete; Done: [id number] Patient Instructions Please bring all medicines, vitamins, 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 with previous QUALITY CONTROL ENGINEER the right SFA 2008, currently has no [...] December 2021 was 6.0 Jade Gale MD, [facility] Surgical History Problems History of Angioplasty [...] negative for complaint. Vitals Vital Signs Recorded: [id number] 08:27AM Heart Rate74, R Radial Huimulea477, LUE, Sitting Fdcdvcrhl03, LUE, Sitting Height6 ft 2 in Flpmee888 lb 2 oz BMI Xnnwezfckm76.03 kg/m2 BSA Calculated2.29 Tobacco Useb) No PHQ-2 #1. Over the last 2 weeks have you felt down, depressed or hopeless? (If yes, answer PHQ-9 below)No PHQ-2 #2. Over the last 2 weeks have you felt littl (more content not included)... Normal [facility] GLYCOHEMOGLOBIN A1Con 2021 ADA RECOMMENDATION SEE BELOW Normal [facility] Comment on above: Result Comment: ADA RECOMMENDED LIMIT 4.0 - 6.0 ADA THERAPEUTIC TARGET < 7.0 ACTION SUGGESTED > 7.0 Performed By: #### A 1C #### [facility] [address] [address] [address] Juan Alberto Carranza Glucose [Mass/Vol] 126 mg/dL Normal [facility] Comment on above: Performed By: #### A 1C #### [facility] [address] [address] [address] Juan Alberto Carranza HbA1c (Bld) [Mass fraction] 6.0 % Normal 4.5-6.2 [facility] Comment on above: Performed By: #### A 1C #### [facility] [address] [address] [address] Juan Alberto Carranza LIPID PROFILEon 01-10-2022 CHOL-HDL RATIO NORM SEE BELOW Normal [facility] Comment on above: Result Comment: 3.3 - 4.4 LOW RISK 4.4 - 7.1 AVERAGE RISK 7.1 - 11.0 MODERATE RISK >11.0 HIGH RISK Performed By: #### L IPID, CMP #### [facility] [address] [address] [address] Juan Alberto Carranza Cholesterol [Mass/Vol] 136 mg/dL Normal <=200 [facility] Comment on above: Performed By: #### L IPID, CMP #### [facility] [address] [address] [address] Juan Alberto Carranza Cholesterol in HDL [Mass/Vol] 62 mg/dL Critically high 40-60 [facility] Comment on above: Performed By: #### L IPID, CMP #### [facility] [address] [address] [address] Juan Alberto Carranza Cholesterol in LDL [Mass/Vol] 57.6 mg/dL Normal [facility] Comment on above: Performed By: #### L IPID, CMP #### [facility] [address] [address] [address] Juan Alberto Carranza Cholesterol.total/Ch olesterol in HDL [Mass ratio] 2.2 {ratio} Normal [facility] Comment on above: Performed By: #### L IPID, CMP #### [facility] [address] [address] [address] Juan Alberto Carranza HDL NORMAL > or = 60 mg/dl - LO W CARDIOVASCULAR RISK <40 mg/dl - HIGH CARDIOVASCULAR RISK Normal [facility] Comment on above: Performed By: #### L IPID, CMP #### [facility] [address] [address] [address] Juan Alberto Carranza LDL CALC NORMAL SEE BELOW Normal [facility] Comment on above: Result Comment: <100 mg/dl OPTIMAL 100 - 129 mg/dl NEAR OR ABOVE OPTIMAL 130 - 159 mg/dl BORDERLINE HIGH 160 - 189 mg/dl HIGH >190 mg/dl VERY HIGH Performed By: #### L IPID, CMP #### [facility] [address] [address] [address] Juan Alberto Carranza Triglyceride [Mass/Vol] 82 mg/dL Normal <=150 [facility] Comment on above: Performed By: #### L IPID, CMP #### [facility] [address] [address] [address] Juan Alberto Carranza VLDL CALC 16.4 mg/dL Normal [facility] Comment on above: Performed By: #### L IPID, CMP #### [facility] [address] [place] [address] Dr. Juan Alberto Carranza PROF 14(COMP METB)on 022 Albumin [Mass/Vol] 4.0 g/dL Normal 3.4-5.0 [facility] Comment on above: Performed By: #### L IPID, CMP #### [facility] [address] [address] [address] Juan Alberto Carranza Albumin/Globulin [Mass ratio] 1.3 {ratio} Normal [facility] Comment on above: Performed By: #### L IPID, CMP #### [facility] [address] [address] [address] Juan Alberto Carranza ALP [Catalytic activity/Vol] 48 U/L Normal 46-116 [facility] Comment on above: Performed By: #### L IPID, CMP #### [facility] [address] [address] [address] Juan Alberto Carranza ALT [Catalytic activity/Vol] 28 U/L Normal 16-63 [facility] Comment on above: Performed By: #### L IPID, CMP #### [facility] [address] [address] [address] Juan Alberto Carranza Anion gap [Moles/Vol] 13.2 mmol/L Normal [facility] Comment on above: Performed By: #### L IPID, CMP #### [facility] [address] [address] [address] Juan Alberto Carranza AST [Catalytic activity/Vol] 13 U/L Critically low 15-37 [facility] Comment on above: Performed By: #### L IPID, CMP #### [facility] [address] [place] [address] Dr. Juan Alberto Carranza Bilirubin [Mass/Vol] 0.6 mg/dL Normal 0.2-1.0 [facility] Comment on above: Performed By: #### L IPID, CMP #### [facility] [address] [place] [address] Dr. Juan Alberto Carranza Calcium [Mass/Vol] 8.8 mg/dL Normal 8.5-10.1 [facility] Comment on above: Performed By: #### L IPID, CMP #### [facility] [address] [place] [address] Dr. Juan Alberto Carranza Chloride [Moles/Vol] 100 mmol/L Normal 98-107 [facility] Comment on above: Performed By: #### L IPID, CMP #### [facility] [address] [place] [address] Dr. Juan Alberto Carranza CO2 [Moles/Vol] 29.1 mmol/L Normal 21.0-32.0 [facility] Comment on above: Performed By: #### L IPID, CMP #### [facility] [address] [place] [address] Dr. Juan Alberto Carranza Creatinine [Mass/Vol] 0.89 mg/dL Normal 0.70-1.30 [facility] Comment on above: Performed By: #### L IPID, CMP #### [facility] [address] [place] [address] Dr. Juan Alberto Carranza EGFR-AF TURKISH >60 Normal >=60 [facility] Comment on above: Performed By: #### L IPID, CMP #### [facility] [address] [place] [address] Dr. Juan Alberto Carranza EGFR-NON AF TURKISH >60 Normal >=60 [facility] Comment on above: Performed By: #### L IPID, CMP #### [facility] [address] [place] [address] Dr. Juan Alberto Carranza Globulin (S) [Mass/Vol] 3.0 g/dL Normal [facility] Comment on above: Performed By: #### L IPID, CMP #### [facility] [address] [place] [address] Dr. Juan Alberto Carranza Glucose [Mass/Vol] 134 mg/dL Critically high 74-106 [facility] Comment on above: Performed By: #### L IPID, CMP #### [facility] [address] [place] [address] Dr. Juan Alberto Carranza Potassium [Moles/Vol] 4.3 mmol/L Normal 3.5-5.1 [facility] Comment on above: Performed By: #### L IPID, CMP #### [facility] [address] [place] [address] Dr. Juan Alberto Carranza Protein [Mass/Vol] 7.0 g/dL Normal 6.4-8.2 [facility] Comment on above: Performed By: #### L IPID, CMP #### [facility] [address] [place] [address] Dr. Juan Alberto Carranza Sodium [Moles/Vol] 138 mmol/L Normal 136-145 [facility] Comment on above: Performed By: #### L IPID, CMP #### [facility] [address] [place] [address] Dr. Juan Alberto Carranza Urea nitrogen [Mass/Vol] 17.0 mg/dL Normal 7.0-18.0 [facility] Comment on above: Performed By: #### L IPID, CMP #### [facility] [address] [place] [address] Dr. Juan Alberto Carranza Urea nitrogen/Creatinine [Mass ratio] 19.1 mg/mg Normal [facility] Comment on above: Performed By: #### L IPID, CMP #### [facility] [address] [place] [address] Dr. Juan Alberto Carranza TESTOSTERONE, TOTALon 2021 Testosterone [Mass/Vol] 321 ng/dL Normal 264-916 [facility] Comment on above: Result Comment: Adul t male reference interval is based on a population of healthy nonobese males (BMI <30) between 19 and 39 years old. Leticia, et.al. JCEM 2017,102;3903-6053. PMID: [id number]. Performed By: #### T ESTTOT #### [facility] [address] [place] [address] Dr. Juan Alberto Carranza TESTOSTERONE, TOTALon 2021 Testosterone [Mass/Vol] 360 ng/dL Normal 264-916 [facility] Comment on above: Result Comment: Adul t male reference interval is based on a population of healthy nonobese males (BMI <30) between 19 and 39 years old. Leticia, et.al. EM 2017,102;6539-5747. PMID: [id number]. Performed By: #### T ESTTOT ####[facility] [id number] [address]Dr. Juan Alberto Carranza CBC AUTO DIFFon 07-13-2021 BASO # 0.0 103/ul Normal 0.0-0.1 [facility] Comment on above: Performed By: #### C BC #### [facility] [address] [place] [address] Dr. Juan Alberto Carranza Basophils/100 WBC (Bld) 0.5 % Normal 0.2-2.0 [facility] Comment on above: Performed By: #### C BC #### [facility] [address] [place] [address] Dr. Juan Alberto Carranza EO # 0.1 103/ul Normal 0.0-0.7 [facility] Comment on above: Performed By: #### C BC #### [facility] [address] [place] [address] Dr. Juan Alberto Carranza Eosinophils/100 WBC (Bld) 1.8 % Normal 0.9-7.0 [facility] Comment on above: Performed By: #### C BC #### [facility] [address] [place] [address] Dr. Juan Alberto Carranza Erythrocyte distribution width (RBC) [Ratio] 13.5 % Normal 11.0-15.0 [facility] Comment on above: Performed By: #### C BC #### [facility] [address] [place] [address] Dr. Juan Alberto Carranza Hematocrit (Bld) [Volume fraction] 40.4 % Critically low 42.0-54.0 [facility] Comment on above: Performed By: #### C BC #### [facility] [address] [place] [address] Dr. Juan Alberto Carranza Hemoglobin (Bld) [Mass/Vol] 13.9 g/dL Critically low 14.0-18.0 [facility] Comment on above: Performed By: #### C BC #### [facility] [address] [place] [address] Dr. Juan Alberto Carranza IG # 0.01 10e3/ul Normal 0.00-0.03 [facility] Comment on above: Performed By: #### C BC #### [facility] [address] [place] [address] Dr. Juan Alberto Carranza IG % 0.2 % Normal 0.0-0.5 [facility] Comment on above: Performed By: #### C BC #### [facility] [address] [place] [address] Dr. Juan Alberto Carranza LYMPH # 0.9 103/ul Critically low 1.2-3.[address] [facility] Comment on above: Performed By: #### C BC #### [facility] [address] [place] [address] Dr. Juan Alberto Carranza Lymphocytes/100 WBC (Bld) 20.5 % Normal 20.5-60.0 [facility] Comment on above: Performed By: #### C BC #### [facility] [address] [place] [address] Dr. Juan Alberto Carranza MANUAL DIFF REQ NO Normal [facility] Comment on above: Performed By: #### C BC #### [facility] [address] [place] [address] Dr. Juan Alberto Carranza MCH (RBC) [Entitic mass] 32.3 pg Normal 25.9-34.0 [facility] Comment on above: Performed By: #### C BC #### [facility] [address] [place] [address] Dr. Juan Alberto Carranza MCHC (RBC) [Mass/Vol] 34.4 g/dL Normal 29.9-35.2 [facility] Comment on above: Performed By: #### C BC #### [facility] [address] [place] [address] Dr. Juan Alberto Carranza MCV (RBC) [Entitic vol] 93.7 fL Normal 80.0-94.0 [facility] Comment on above: Performed By: #### C BC #### [facility] [address] [place] [address] Dr. Juan Alberto Carranza MONO # 0.3 103/ul Normal 0.3-0.8 [facility] Comment on above: Performed By: #### C BC #### [facility] [address] [place] [address] Dr. Juan Alberto Carranza Monocytes/100 WBC (Bld) 7.0 % Normal 1.7-12.0 [facility] Comment on above: Performed By: #### C BC #### [facility] [address] [place] [address] Dr. Juan Alberto Carranza NEUT # 3.1 103/ul Normal 1.4-6.5 [facility] Comment on above: Performed By: #### C BC #### [facility] [address] [place] [address] Dr. Juan Alberto Carranza Neutrophils/100 WBC (Bld) 70.0 % Normal 43.0-75.0 [facility] Comment on above: Performed By: #### C BC #### [facility] [address] [place] [address] Dr. Juan Alberto Carranza Platelet mean volume (Bld) [Entitic vol] 11.3 fL Normal 9.5-13.5 [facility] Comment on above: Performed By: #### C BC #### [facility] [address] [place] [address] Dr. Juan Alberto Carranza PLT 141 103/ul Critically low 150-450 [facility] Comment on above: Performed By: #### C BC #### [facility] [address] [address] [address] Juan Alberto Carranza RBC 4.31 106/ul Critically low 4.70-6.10 [facility] Comment on above: Performed By: #### C BC #### [facility] [address] [address] [address] Juan Alberto Carranza WBC 4.4 103/ul Normal 4.0-11.0 [facility] Comment on above: Performed By: #### C BC #### [facility] [address] [address] [address] Juan Alberto Carranza LIPID PROFILEon 07-13-2021 CHOL-HDL RATIO NORM SEE BELOW Normal [facility] Comment on above: Result Comment: 3.3 - 4.4 LOW RISK 4.4 - 7.1 AVERAGE RISK 7.1 - 11.0 MODERATE RISK >11.0 HIGH RISK Performed By: #### L IPID #### [facility] [address] [place] [address] Dr. Juan Alberto Carranza Cholesterol [Mass/Vol] 139 mg/dL Normal <=200 [facility] Comment on above: Performed By: #### L IPID #### [facility] [address] [place] [address] Dr. Juan Alberto Carranza Cholesterol in HDL [Mass/Vol] 72 mg/dL Normal [facility] Comment on above: Performed By: #### L IPID #### [facility] [address] [address] [address] Juan Alberto Carranza Cholesterol in LDL [Mass/Vol] 62.4 mg/dL Normal [facility] Comment on above: Performed By: #### L IPID #### [facility] [address] [address] [address] Juan Alberto Carranza Cholesterol.total/Ch olesterol in HDL [Mass ratio] 1.9 {ratio} Normal [facility] Comment on above: Performed By: #### L IPID #### [facility] [address] [address] [address] Juan Alberto Carranza HDL NORMAL > or = 60 mg/dl - LO W CARDIOVASCULAR RISK <40 mg/dl - HIGH CARDIOVASCULAR RISK Normal [facility] Comment on above: Performed By: #### L IPID #### [facility] [address] [address] [address] Juan Alberto Carranza LDL CALC NORMAL SEE BELOW Normal [facility] Comment on above: Result Comment: <100 mg/dl OPTIMAL 100 - 129 mg/dl NEAR OR ABOVE OPTIMAL 130 - 159 mg/dl BORDERLINE HIGH 160 - 189 mg/dl HIGH >190 mg/dl VERY HIGH Performed By: #### L IPID #### [facility] [address] [address] [address] Juan Alberto Carranza Triglyceride [Mass/Vol] 23 mg/dL Normal <=150 [facility] Comment on above: Performed By: #### L IPID #### [facility] [address] [place] [address] Dr. Juan Alberto Carranza VLDL CALC 4.6 mg/dL Normal [facility] Comment on above: Performed By: #### L IPID #### [facility] [address] [place] [address] Dr. Juan Alberto Carranza PROF 14(COMP METB)on 022 Albumin [Mass/Vol] 4.0 g/dL Normal 3.5-5.0 [facility] Comment on above: Performed By: #### C MP #### [facility] [address] [place] [address] Dr. Juan Alberto Carranza Albumin/Globulin [Mass ratio] 1.3 {ratio} Normal [facility] Comment on above: Performed By: #### C MP #### [facility] [address] [address] [address] Juan Alberto Carranza ALP [Catalytic activity/Vol] 60 U/L Normal 38-126 [facility] Comment on above: Performed By: #### C MP #### [facility] [address] [address] [address] Juan Alberto Carranza ALT [Catalytic activity/Vol] 22 U/L Normal 21-72 [facility] Comment on above: Performed By: #### C MP #### [facility] [address] [address] [address] Juan Alberto Carranza Anion gap [Moles/Vol] 9.4 mmol/L Normal [facility] Comment on above: Performed By: #### C MP #### [facility] [address] [address] [address] Juan Alberto Carranza AST [Catalytic activity/Vol] 12 U/L Critically low 17-59 [facility] Comment on above: Performed By: #### C MP #### [facility] [address] [address] [address] Juan Alberto Carranza Bilirubin [Mass/Vol] 0.6 mg/dL Normal 0.2-1.3 [facility] Comment on above: Performed By: #### C MP #### [facility] [address] [address] [address] Juan Alberto Carranza Calcium [Mass/Vol] 8.9 mg/dL Normal 8.4-10.2 [facility] Comment on above: Performed By: #### C MP #### [facility] [address] [address] [address] Juan Alberto Carranza Chloride [Moles/Vol] 103 mmol/L Normal 98-107 [facility] Comment on above: Performed By: #### C MP #### [facility] [address] [address] [address] Juan Alberto Carranza CO2 [Moles/Vol] 28.8 mmol/L Normal 22.0-30.0 [facility] Comment on above: Performed By: #### C MP #### [facility] [address] [address] [address] Juan Alberto Carranza Creatinine [Mass/Vol] 0.83 mg/dL Normal 0.66-1.25 [facility] Comment on above: Performed By: #### C MP #### [facility] [address] [address] [address] Juan Alberto Carranza EGFR-AF TURKISH >60 Normal >=60 [facility] Comment on above: Performed By: #### C MP #### [facility] [address] [place] [address] Dr. Juan Alberto Carranza EGFR-NON AF TURKISH >60 Normal >=60 [facility] Comment on above: Performed By: #### C MP #### [facility] [address] [place] [address] Dr. Juan Alberto Carranza Globulin (S) [Mass/Vol] 3.2 g/dL Normal [facility] Comment on above: Performed By: #### C MP #### [facility] [address] [address] [address] Juan Alberto Carranza Glucose [Mass/Vol] 135 mg/dL Critically high 74-106 [facility] Comment on above: Performed By: #### C MP #### [facility] [address] [place] [address] Dr. Juan Alberto Carranza Potassium [Moles/Vol] 5.2 mmol/L Critically high 3.4-5.0 [facility] Comment on above: Performed By: #### C MP #### [facility] [address] [place] [address] Dr. Juan Alberto Carranza Protein [Mass/Vol] 7.2 g/dL Normal 6.1-8.2 [facility] Comment on above: Performed By: #### C MP #### [facility] [address] [place] [address] Dr. Juan Alberto Carranza Sodium [Moles/Vol] 136 mmol/L Critically low 137-145 [facility] Comment on above: Performed By: #### C MP #### [facility] [address] [place] [address] Dr. Juan Alberto Carranza Urea nitrogen [Mass/Vol] 17.0 mg/dL Normal 9.0-20.0 [facility] Comment on above: Performed By: #### C MP #### [facility] [address] [place] [address] Dr. Juan Alberto Carranza Urea nitrogen/Creatinine [Mass ratio] 20.5 mg/mg Normal [facility] Comment on above: Performed By: #### C MP #### [facility] [address] [place] [address] Dr. Juan Alberto Carranza SED RATE [facility] 2021 SED RATE 2 mm/hr Normal <=20 [facility] Comment on above: Performed By: #### S EDR #### [facility] [address] [place], [place] [address] Dr. Juan Alberto Carranza Office Visit (Cardiology)on [...] Weight Tips; Status:Complete - Retrospective Authorization; Done: [id number] SocHx: Former smoker Tobacco Use Screening; Status:Complete; Done: [id number] Patient Instructions By signing my name below, Paulette Manzano RN,Scribe Please bring all medicines, vitamins, and [...] PCI of the RCA in 2004 and 2017. He is presently asymptomatic on dual antiplatelet therapy. No cardiac testing and no change in medication is needed 2. Sleep apnea, on CPAP machine. 3. 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 Hyperlipidemia, on statin therapy, under control. Lipid profile was requested from PCP 5. Overweight. Weight has dropped 15 pounds from last year which is encouraging 6. Hypertension, presently under control. 7. Diabetes, under control., Lab data from PCP were requested Jade Gale MD, [facility] Current Meds Medication NameInstruction Aspirin 81 MG [...] negative for complaint. Vitals Vital Signs Recorded: [id number] 03:40PM Heart Rate80, R Radial Fjglbvss478, RUE, Sitting Joycoflgc27, RUE, Sitting Height6 ft 2 in Fpnapi202 lb 9.6 oz BMI Jkkzbsujop16.61 kg/m2 BSA Calculated2.31 Tobacco Useb) No Fall [...] by:VENICE Maeigned by:Jair Olivia MD07/06/17inal result Normal [facility] Vital Signs Date Time Vital Sign Value Performing Clinician Facility 03-22-2024 10:51-0500 Body height 185.42 cm [facility] 03-22-2024 10:51-0500 Body mass index (BMI) [Ratio] 30 kg/m2 [facility] 03-22-2024 10:51-0500 Body weight 103.41 kg [facility] 03-22-2024 10:51-0500 Diastolic blood pressure 61 mm[Hg] [facility] 03-22-2024 10:51-0500 Heart rate 67 /min [facility] 03-22-2024 10:51-0500 SaO2% (BldA) [Mass fraction] 98 % [facility] 03-22-2024 10:51-0500 Systolic blood pressure 112 mm[Hg] [facility] 03-22-2024 08:42-0500 Body height 185.4 cm Jade Gale MD Work Phone: [facility] 03-22-2024 08:42-0500 Body mass index (BMI) [Ratio] 29.95 kg/m2 Jade Gale MD Work Phone: [facility] 03-22-2024 08:42-0500 Body weight 102.97 kg Jade Gale MD Work Phone: [facility] 03-22-2024 08:42-0500 Diastolic blood pressure 50 mm[Hg] Jade Gale MD Work Phone: [facility] 03-22-2024 08:42-0500 Heart rate 64 /min Jade Gale MD Work Phone: [facility] 03-22-2024 08:42-0500 Systolic blood pressure 100 mm[Hg] Jade Gale MD Work Phone: [facility] 06-25-2023 09:55-0500 Body mass index (BMI) [Ratio] 29.34 kg/m2 Josh Bermudezjenny Work Phone: [facility] 06-25-2023 09:55-0500 Body weight 100.88 kg Joshjose r Bermudezjenny Work Phone: [facility] 06-18-2023 08:39-0500 Body height 185.4 cm Jade Gale MD Work Phone: [facility] 06-18-2023 08:39-0500 Body mass index (BMI) [Ratio] 29.82 kg/m2 Jade Gale MD Work Phone: [facility] 06-18-2023 08:39-0500 Body weight 102.51 kg Jade Gale MD Work Phone: [facility] 06-18-2023 08:39-0500 Diastolic blood pressure 76 mm[Hg] Jade Gale MD Work Phone: [facility] 06-18-2023 08:39-0500 Heart rate 62 /min Jade Gale MD Work Phone: [facility] 06-18-2023 08:39-0500 Systolic blood pressure 130 mm[Hg] Jade Gale MD Work Phone: [facility] 03-27-2022 16:00-0500 Body height Aryan Garcia Other [facility] Other 03-27-2022 16:00-0500 Body mass index (BMI) [Ratio] 29.81 kg/m2 Aryan Garcia Other [facility] Other 03-27-2022 16:00-0500 Body temperature 96.9 [degF] Aryan Garcia Other [facility] Other 03-27-2022 16:00-0500 Body weight 102.51 kg Aryan Garcia Other [facility] Other 03-27-2022 16:00-0500 Diastolic blood pressure 70 mm[Hg] Aryan Garcia Other [facility] Other 03-27-2022 16:00-0500 SaO2% (BldA) [Mass fraction] 100 % Aryan Garcia Other [facility] Other 03-27-2022 16:00-0500 Systolic blood pressure 128 mm[Hg] Aryan Garcia Other [facility] Other Encounters Encounter Date Encounter Type Care Provider Facility Start: 05-02-2024 ambulatory Shady Hoff ty:[facility] Start: 04-04-2024 End: 04-04-2024 ambulatory Shady MOHAN Facility:[facility] Start: 03-22-2024 End: 03-22-[address] [facility] Work Phone: Start: 03-22-2024 End: 03-22-2024 Patient encounter procedure [facility] Work Phone: Start: 03-22-2024 End: 03-22-2024 Office outpatient visit 25 minutes Jade Gale MD Work Phone: [facility] Comment on above: ASCVD (arteriosclero tic cardiovascular disease) (Primary Dx); Peripheral vascular disease ([facility]); Essential hypertension; Hyperlipidemia, unspecified hyperlipidemia type; Other specified diabetes mellitus without complication, without long-term current use of insulin; Obstructive sleep apnea syndrome; Former smoker; BMI 29.0-29.9,adult; Diabetes mellitus type II, non insulin dependent (Multi) Start: 03-22-2024 End: 03-22-2024 ambulatory JADE Holley [facility] Start: 03-08-2024 End: 03-08-2024 ambulatory Shady MOHAN Facility:[facility] Start: 02-29-2024 End: 02-29-2024 Orders Only Josh Sanchez Janell DO Work Phone: [facility] Comment on above: Normocytic normochro alma anemia (Primary Dx); Type 2 diabetes mellitus with diabetic polyneuropathy, without long-term current use of insulin ([facility] Essential hypertension Start: 02-08-2024 End: 02-08-2024 ambulatory Shady MOHAN Facility:[facility] Start: 01-12-2024 End: 01-12-2024 ambulatory Josseline Kerr Facility:[facility] Start: 12-28-2023 End: 12-28-2023 ambulatory Shady MOHAN Facility:[facility] Start: 12-28-2023 End: 12-28-2023 ambulatory Shady MOHAN Facility:[facility] Start: 11-02-2023 End: 11-02-2023 ambulatory Shady MOHAN Facility:[facility] Start: 07-02-2023 Refill Kenzie Zaman [facility] Comment on above: Type 2 diabetes gordy itus with diabetic polyneuropathy, without long-term current use of insulin ([facility]) (Primary Dx) Start: 07-01-2023 Refill Belkys Angelique [employer]SEM[employer] Liyah albaa [facility] Comment on above: Type 2 diabetes gordy itus with diabetic polyneuropathy, without long-term current use of insulin (CMS-HCC) (Primary Dx) Start: 06-29-2023 Refill Belkys Angelique [employer]SEM[employer]ER Liyah watts [facility] Start: 06-26-2023 Orders Only [facility]obedo DO [facility] Start: 06-25-2023 End: 06-25-[address] [facility] Start: 06-25-2023 End: 06-25-2023 Office outpatient visit 25 minutes Josh Ospina DO [facility] Comment on above: Type 2 diabetes gordy itus with diabetic polyneuropathy, without long-term current use of insulin (CMS-HCC) (Primary Dx); Normocytic normochromic anemia; Peripheral vascular disease (CMS-HCC); Thrombocytopenia (CMS-HCC) Start: 06-23-2023 Refill Belkys Angelique [employer]SEM[employer] Liyah w[facility] Start: 06-18-2023 End: 06-18-2023 Office outpatient visit 25 minutes Jade Gale MD Work Phone: [facility] Comment on above: ASCVD (arteriosclero tic cardiovascular disease) (Primary Dx); Peripheral vascular disease (CMS/HCC); Essential hypertension; Hyperlipidemia, unspecified hyperlipidemia type; Other specified diabetes mellitus without complication, without long-term current use of insulin (CMS/HCC); Former smoker; Overweight Start: 06-18-2023 End: 06-18-2023 ambulatory JADE GALE [facility] Start: 05-04-2023 End: 05-04-[address] [facility] Start: 03-17-2023 End: 03-17-2023 ambulatory Shanice Bailey Facility:[facility] Start: 01-05-[address] Jade Gale Facility:[id number] Start: 10-08-2022 Office outpatient vi sit 25 minutes Josh Daileygregg Work Phone: [facility] Work Phone: Start: 08-20-2022 Rx Renewal Josh Sanchez Lararinku ng Work Phone: [facility] DO Work Phone: Start: 04-26-2022 End: 04-27-[address] JOSH OSPINA Facility:[facility] Start: 03-27-2022 End: 03-27-2022 Patient encounter procedure DO Josh Ospina Work Phone: [facility] Start: 03-27-2022 End: 03-27-2022 ambulatory DO Josh Ospina Work Phone: [facility] Work Phone: Start: 03-27-2022 Office outpatient vi sit 25 minutes [facility] Start: 02-04-[address] Jade Gale Facility:[id number] Start: 01-10-2022 End: 01-11-[address] JOSH OSPINA Facility:H1 Start: 12-03-2021 Rx Renewal Josh Dailey ng Work Phone: [facility] 250 DO Work Phone: Start: 11-26-2021 Rx Renewal Josh Dailey ng Work Phone: [facility] 250 DO Work Phone: Start: 11-19-2021 Rx Renewal [facility] DO Work Phone: Start: 10-26-2021 End: 10-27-[address] JOSH OSPINA Facility:H1 Start: 07-24-2021 End: 07-25-[address] SHANICE BAILEY Facility:H1 Start: 07-13-2021 End: 07-14-[address] SHANICE BAILEY Facility:H1 Start: 06-04-[address] JOSH OSPINA Feim ility:H1 Start: 04-23-2021 ambulatory Josh Willy Bermudezjenny Sunday acility: Start: 07-06-2017 End: 07-09-2017 Ambulatory EILEEN [facility] Procedures Date Procedure Procedure Detail Performing Clinician Start: 06-25-2023 Adult depression scr eening assessment Josh Ospina DO Work Phone: Start: 06-18-2023 Aspartate aminotrans ferase [Enzymatic activity/volume] in Serum or Plasma JADE GALE Start: 06-18-2023 Basic metabolic 2000 panel - Serum or Plasma JADE GALE Start: 06-18-2023 CBC panel - Blood by Automated count JADE GALE Start: 06-18-2023 Lipid panel JADE GE Start: 06-18-2023 Alanine aminotransfe rase [Enzymatic activity/volume] in Serum or Plasma JADE GALE Start: 05-04-2023 Adult depression scr eening assessment Bel[facility]ys Angelique [employer] Start: 05-04-2023 Microalbumin [Mass/v olume] in Urine by Test strip [facility]ys [employer]ique [employer] Start: 05-13-2022 Diabetic retinal eye exam [facility]ique [employer] Start: 04-26-[address] PINO MOHAN Comment on above: Performed By: #### P SAD #### [facility] [address] [place] [address] Dr. Juan Alberto Carranza Start: 07-06-2017 Mri any jt upper ext remity w/o contrast matrl EILEEN YULISSAJesus Alberto Start: 04-07-2014 Colonoscopy Jade ge MD Work Phone: Angioplasty of blood vessel Josh Ospina Work Phone: Decompression of med kristin nerve Josh Ospina Work Phone: Percutaneous translu giovani coronary angioplasty Josh Ospina Work Phone: Repair of shoulder Josh Ospina Work Phone: Screening for malign ant neoplasm of colon Aryan Garcia Other Surgical procedure Josh Ospina Work Phone: Comment on above: History of Stent Ind ications; Total colonoscopy Josh thapa Work Phone: Total replacement of hip Yohan Ospina Work Phone: Plan of Treatment Date Care Activity Detail Author Start: 04-08-2029 Screening for malignant neoplasm of colon Colon Cancer Screening 5 Year Sigmoidoscopy [facility] Comment on above: Postponed from 10/19/2000 (Not Indicated ) Start: 12-27-2024 End: 12-27-2024 Patient encounter procedure 12/27/2024 8:50 AM EDT Office Visit [facility] [address] [facility] [address] [place] [address] Jade Gale MD [address] [facility] [address] [place] [address] [facility] Start: 07-04-2024 DTaP,Tdap and Td Vaccines (2 - Td or Tdap) DTaP,Tdap and Td Vaccines (2 - Td or Tdap) [facility] Start: 07-04-2024 DTaP/Tdap/Td Vaccines (2 - Td or Tdap) DTaP/Tdap/Td Vaccines (2 - Td or Tdap) [facility] Start: 06-25-2024 Adult BMI Screening Adult BMI Screening [facility] Start: 06-25-2024 Depression Screening Depression Screening [facility] Start: 06-25-2024 Fall Risk Screening Fall Risk Screening [facility] Start: 06-25-2024 Tobacco Screening Tobacco Screening [facility] Start: 05-04-2024 Adult BMI Screening Adult BMI Screening [facility] Start: 05-04-2024 Depression Screening Depression Screening [facility] Start: 05-04-2024 Diabetic foot examination Diabetic Foot Exam [facility] Start: 05-04-2024 Fall Risk Screening Fall Risk Screening [facility] Start: 05-04-2024 Tobacco Screening Tobacco Screening [facility] Start: 05-04-2024 Urine screening for protein [facility] Start: 05-02-2024 End: 05-02-2024 Patient encounter procedure 05/02/2024 9:30 AM EST Office Visit [facility] [address] [place] [address] Josh Ospina, [address], [place] [address] [facility] Start: 04-07-2024 Screening for malignant neoplasm of colon [facility] Start: 03-22-2024 End: 03-22-2025 Alanine aminotransferase [Enzymatic activity/volume] in Serum or Plasma by With P-5'-P Alanine Aminotransferase Lab Routine ASCVD (arteriosclerotic cardiovascular disease) Hyperlipidemia, unspecified hyperlipidemia type Expected: 03/22/2024 (Approximate), Expires: 03/22/2025 [facility] Service Area Work Phone: Comment on above: Expected: 03/22/2024 (Approximate), Expi res: 03/22/2025 Start: 03-22-2024 End: 03-22-2025 Aspartate aminotransferase [Enzymatic activity/volume] in Serum or Plasma by With P-5'-P Aspartate Aminotransferase Lab Routine ASCVD (arteriosclerotic cardiovascular disease) Hyperlipidemia, unspecified hyperlipidemia type Expected: 03/22/2024 (Approximate), Expires: 03/22/2025 [facility] Work Phone: Comment on above: Expected: 03/22/2024 (Approximate), Expi res: 03/22/2025 Start: 03-22-2024 End: 03-22-2025 Basic metabolic 2000 panel - Serum or Plasma Basic Metabolic Panel Lab Routine ASCVD (arteriosclerotic cardiovascular disease) Essential hypertension Expected: 03/22/2024 (Approximate), Expires: 03/22/2025 [facility] Work Phone: Comment on above: Expected: 03/22/2024 (Approximate), Expi res: 03/22/2025 Start: 03-22-2024 End: 03-22-2025 CBC panel - Blood by Automated count CBC Lab Routine ASCVD (arteriosclerotic cardiovascular disease) Expected: 03/22/2024 (Approximate), Expires: 03/22/2025 [facility] Work Phone: Comment on above: Expected: 03/22/2024 (Approximate), Expi res: 03/22/2025 Start: 03-22-2024 End: 03-22-2025 Lipid 1996 panel - Serum or Plasma Lipid Panel Lab Routine ASCVD (arteriosclerotic cardiovascular disease) Hyperlipidemia, unspecified hyperlipidemia type Expected: 03/22/2024 (Approximate), Expires: 03/22/2025 [facility] Work Phone: Comment on above: Expected: 03/22/2024 (Approximate), Expi res: 03/22/2025 Start: 03-22-2024 End: 03-22-2024 Patient encounter procedure 03/22/2024 8:40 AM EST Office Visit [facility] [address] [facility] [address] [place] [id number] Jade Gale MD [address] [facility] [address], [facility] [address] [place] [address] [facility] Start: 01-17-2024 COVID-19 Vaccine ( season) COVID-19 Vaccine ( season) [facility] Start: 01-17-2024 COVID-19 Vaccine ( season) COVID-19 Vaccine ( season) [facility] Start: 01-17-2024 Influenza vaccination Influenza Vaccine [facility] Start: 09-18-2023 Medicare Annual Wellness Visit Medicare Annual Wellness Visit [facility] Start: 06-25-2023 End: 06-25-2023 Patient encounter procedure 06/25/2023 10:00 AM EST Office Visit [facility] [address] [place] [address] Josh Ospina, DO [address] [facility], [place] [address] [facility] Start: 06-18-2023 End: 06-18-2024 Alanine aminotransferase [Enzymatic activity/volume] in Serum or Plasma by With P-5'-P Alanine Aminotransferase Lab Routine ASCVD (arteriosclerotic cardiovascular disease) Peripheral vascular disease (CMS/HCC) Essential hypertension Hyperlipidemia, unspecified hyperlipidemia type Other specified diabetes mellitus without complication, without long-term current use of insulin (CMS/HCC) Expected: 06/18/2023 (Approximate), Expires: 06/18/2024 [facility] Service Area Work Phone: Comment on above: [...] insulin (CMS/HCC) Expected: 06/18/2023 (Approximate), Expires: 06/18/2024 [facility] Work Phone: Comment on above: Expected: 06/18/2023 (Approximate), Expi res: 06/18/2024 Start: 06-18-2023 End: 06-18-2024 Basic metabolic 2000 panel - Serum or Plasma Basic Metabolic Panel Lab Routine ASCVD (arteriosclerotic cardiovascular disease) Peripheral vascular disease (CMS/HCC) Essential hypertension Hyperlipidemia, unspecified hyperlipidemia type Other specified diabetes mellitus without complication, without long-term current use of insulin (CMS/HCC) Expected: 06/18/2023 (Approximate), Expires: 06/18/2024 [facility] Work Phone: Comment on above: Expected: 06/18/2023 (Approximate), Expi res: 06/18/2024 Start: 06-18-2023 End: 06-18-2024 CBC panel - Blood by Automated count CBC Lab Routine ASCVD (arteriosclerotic cardiovascular disease) Peripheral vascular disease (CMS/HCC) Essential hypertension Hyperlipidemia, unspecified hyperlipidemia type Other specified diabetes mellitus without complication, without long-term current use of insulin (CMS/HCC) Expected: 06/18/2023 (Approximate), Expires: 06/18/2024 [facility] Work Phone: Comment on above: Expected: 06/18/2023 (Approximate), Expi res: 06/18/2024 Start: 06-18-2023 End: 06-18-2024 Lipid 1996 panel - Serum or Plasma Lipid Panel Lab Routine ASCVD (arteriosclerotic cardiovascular disease) Peripheral vascular disease (CMS/HCC) Essential hypertension Hyperlipidemia, unspecified hyperlipidemia type Other specified diabetes mellitus without complication, without long-term current use of insulin (CMS/HCC) Expected: 06/18/2023 (Approximate), Expires: 06/18/2024 [facility] Work Phone: Comment on above: Expected: 06/18/2023 (Approximate), Expi res: 06/18/2024 Start: 06-18-2023 FUV, Provider: Jade Gale, Status: Pen, Time: 9:00 AM FUV, Provider: Jade Gale, Status: Pen, Time: 9:00 AM [facility] Work Phone: Start: 05-13-2023 Glaucoma screening [facility] Start: 01-16-2023 COVID-19 Vaccine ( season) COVID-19 Vaccine () [facility] Start: 01-16-2023 COVID-19 Vaccine () COVID-19 Vaccine () [facility] Start: 01-16-2023 COVID-19 Vaccine () COVID-19 Vaccine () [facility] Start: 01-05-2023 AOILIVC, Provider: CECILIA CAMPBELL [employer] 01,[id number], Status: Pen, Time: 7:45 AM AOILIVC, Provider: CECILIA MICHAELI [employer]TRAS[employer] 01,[id number], Status: Pen, Time: 7:45 AM [facility] Work Phone: Start: 10-08-2022 FUV, Provider: Jade Gale, Status: Pen, Time: 8:40 AM FUV, Provider: Jade Gale, Status: Pen, Time: 8:40 AM [facility] Work Phone: Start: 02-04-2022 FUV, Provider: Jade Gale, Status: Pen, Time: 8:30 AM FUV, Provider: Jade Gale, Status: Pen, Time: 8:30 AM [facility] Work Phone: Start: 2015 RSV High Risk: (Elderly (60+) or Population) (1 - Risk 60-74 years 1-dose series) RSV High Risk: (Elderly (60+) or Population) (1 - Risk 60-74 years 1-dose series) [facility] Start: 10-19-2000 Screening for malignant neoplasm of colon Colon Cancer Screening [facility] Start: 10-19-1973 Adult BMI Follow Up Plan Adult BMI Follow Up Plan [facility] Start: 10-19-1973 Hepatitis C screening Hepatitis C Screening [facility] Start: 10-19-1965 Diabetic foot examination Diabetes: Foot Exam [facility] Start: 10-19-1965 Glaucoma screening Diabetes: Retinopathy Screening [facility] Start: 1955 Hemoglobin A1c measurement Diabetes: Hemoglobin A1C [facility] Start: 1955 Lipid panel Lipid Panel [facility] Start: 1955 Medicare Annual Wellness Visit Medicare Annual Wellness Visit (AWV) [facility] Start: 1955 Screening for malignant neoplasm of colon [facility] End: 02-28-2025 Basic metabolic 2000 panel - Serum or Plasma Basic Metabolic Panel Lab Routine Essential hypertension 1 Occurrences starting 02/29/2024 until 02/28/2025 [employer] [facility] Comment on above: 1 Occurrences starting 02/29/2024 until 02/28/2025 End: 02-28-2025 CBC panel - Blood by Automated count CBC Lab Routine Normocytic normochromic anemia 1 Occurrences starting 02/29/2024 until 02/28/2025 [facility] Comment on above: 1 Occurrences starting 02/29/2024 until 02/28/2025 End: 02-28-2025 Hemoglobin A1c/Hemoglobin.total in Blood Hemoglobin A1c Lab Routine Type 2 diabetes mellitus with diabetic polyneuropathy, without long-term current use of insulin [place] 1 Occurrences starting 02/29/2024 until 02/28/2025 [email or web address] Work Phone: Comment on above: 1 Occurrences starting 02/29/2024 until 02/28/2025 Immunizations Immunization Date Immunization Notes Care Provider Rahel rice 02-05-2023 Influenza, High-dose , Quadrivalent [facility] 02-05-2023 influenza virus vacc ine, unspecified formulation Josh Ospina DO Work Phone: [facility] [employer] [facility] 04-14-2022 pneumococcal conjuga te vaccine, 13 valent [facility] Angelique [facility] [employer] [facility] 04-14-2022 Prevnar 20 0.5 ML Intramuscular Suspension Prefilled Syringe Josh Ospina Work Phone: [facility] Work Phone: 02-18-2021 Pfizer-BioNTech COVI D-19 Vacc 30 MCG/0.3ML Intramuscular Suspension Josh Ospina Work Phone: [facility] 08-08-2020 Pfizer-BioNTech COVI D-19 Vacc 30 MCG/0.3ML Intramuscular Suspension Josh Daileyng Work Phone: [facility] 250 DO Work Phone: 08-05-2020 Pfizer Purple Cap SARS-CoV-2 Jade Gale MD Work Phone: [facility] Work Phone: 07-18-2020 Moderna COVID-19 Vac cine 100 MCG/0.5ML Intramuscular Suspension Josh [facility]ina [facility] Phone[facility] Work Phone: 07-18-2020 CS-Keys COVI D-19 Vacc 30 MCG/0.3ML Intramuscular Suspension Josh Bermudezng Work Phone: [facility] Work Phone: 07-16-2020 COVID-19, mRNA, LNP- S, PF, 30mcg/0.3mL Dose [facility] 05-08-2020 pneumococcal polysaccharide vaccine, 23 valent Josh Sanchez [employer] Work Phone: [facility] 02-16-2020 influenza virus vacc ine, unspecified formulation Josh Sanchez [employer] Work Phone: [facility] [employer] DO Work Phone: 02-16-2020 influenza, injectabl e, quadrivalent, preservative free Jade Gale MD Work Phone: [facility] Work Phone: 02-16-2020 influenza, seasonal, injectable [facility] 06-29-2019 zoster vaccine recombinant Josh Sanchez [employer] Work Phone: [facility] [employer] DO Work Phone: 04-28-2019 zoster vaccine recombinant Josh Sanchez [employer] Work Phone: [facility] [employer] DO Work Phone: 03-18-2019 influenza virus vacc ine, unspecified formulation Josh Sanchez [employer] Work Phone: [facility] [employer] DO Work Phone: 03-18-2019 influenza, seasonal, injectable [facility] 03-02-2019 influenza, injectabl e, quadrivalent, contains preservative Josh G [employer] Work Phone: [place] [address] DO Work Phone: 04-13-2018 Influenza, injectabl e, Madin Myla Canine Kidney, preservative free, quadrivalent Josh G Furlong Work Phone: [place] [address] DO Work Phone: 03-18-2018 influenza virus vacc ine, unspecified formulation Josh G Furlong Work Phone: [place] [address] DO Work Phone: 04-20-2017 influenza, injectabl e, quadrivalent, preservative free Josh G Furlong Work Phone: [place] [address] DO Work Phone: 03-31-2017 influenza, injectabl e, quadrivalent, preservative free Josh G Furlong Work Phone: [place] [address] DO Work Phone: 03-26-2017 influenza virus vacc ine, unspecified formulation [facility] 03-18-2017 influenza virus vacc ine, unspecified formulation Josh G Furlong Work Phone: [place] [address] DO Work Phone: 02-16-2016 influenza virus vacc ine, unspecified formulation Josh G Furlong Work Phone: [place] [address] DO Work Phone: 03-18-2015 influenza, seasonal, injectable Josh G Furlong Work Phone: [place] [address] DO Work Phone: 02-15-2015 influenza virus vacc ine, unspecified formulation Josh G Furlong Work Phone: [place] [address] DO Work Phone: 07-04-2014 pneumococcal conjuga te vaccine, 13 valent Josh Bermudezng Work Phone: [place] [address] DO Work Phone: 07-04-2014 tetanus toxoid, redu leonel diphtheria toxoid, and acellular pertussis vaccine, adsorbed Josh Sanchez [employer] Work Phone: [place] [address] DO Work Phone: 02-22-2014 influenza virus vacc ine, whole virus Josh Bermudezng Work Phone: [place] [address] DO Work Phone: 07-18-2013 influenza virus vacc ine, unspecified formulation Josh Berm[employer]zInmagic Work Phone: [place] [address] DO Work Phone: 05-18-2011 influenza virus vacc ine, unspecified formulation [facility] 03-18-2011 influenza virus vacc ine, unspecified formulation [facility] 05-18-2009 influenza virus vacc ine, unspecified formulation [facility] 03-18-2009 influenza virus vacc ine, unspecified formulation Josh Bermudezng Work Phone: [place] [address] DO Work Phone: influenza virus vacc ine, unspecified formulation Josh Bermudezng Work Phone: [place] [address] DO Work Phone: Comment on above: [id number] [id number] Payers Date Payer Category Payer Self-pay [id number] 2022 Unknown 2020 Medicare [id number] 2020 Medicare [id number] 1959 Medicare [id number] Self-pay [id number] 1959 Unknown [id number] 1955 Unknown [id number] 2.16. [id number] 1955 Unknown [id number] 2.16. 840.1.221978.3.579.2.356 1955 Unknown [id number] 2.16.84 0.1.088974.3.579.2.593 1955 Unknown [id number] 2.16.84 0.1.730568.3.579.2.593 1955 Unknown [id number] 2.16.84 0.1.445598.3.579.2.593 1955 Unknown [id number] 2.16.84 0.1.990988.3.579.2.593 1955 Unknown [id number] 2.16.84 0.1.878603.3.579.2.593 1955 Unknown [id number] 2.16.84 0.1.385534.3.579.2.593 1955 Unknown [id number] 2.16.84 0.1.351109.3.579.2.593 1955 Unknown [id number] 2.16.84 0.1.264802.3.579.2.593 1955 Unknown [id number] 2.16.8 40.1.348639.3.579.2.1068 1955 Unknown [id number] 2.16.8 40.1.161400.3.579.2.1286 1955 Unknown [id number] 2.16.840 .1.095141.3.579.2.1286 1955 Unknown [id number] 2.16.8 40.1.073436.3.579.2.727 1955 Unknown [id number] 2.16.8 40.1.403222.3.579.2.727 1955 Unknown [id number] 2.16.8 40.1.521873.3.579.2.727 1955 Unknown [id number] 2.16.8 40.1.376117.3.579.2.727 1955 Unknown [id number] 2.16.8 40.1.293560.3.579.2.727 1955 Unknown [id number] 2.16. 840.1.728102.3.579.2.1244 1955 Unknown [id number] 2.16.8 40.1.253120.3.579.2.1244 1955 Unknown [id number] 2.16.8 40.1.366547.3.579.2.727 1955 Unknown [id number] 2.16.8 40.1.401515.3.579.2.727 1955 Unknown [id number] 2.16.8 40.1.555903.3.579.2.727 Unknown [id number] 2.16.8 40.1.615934.3.579.2.531 Unknown [id number] 2.16.8 40.1.757777.3.579.2.531 Social History Date Type Detail Facility Start: 05-26-2023 End: 03-22-2024 Alcohol use Alcohol use -[facility] 250 DO Work Phone: Comment on above: 1-2 cups of coffee d aily; Start: 05-26-2023 End: 03-22-2024 Sex Assigned At [facility] [employer] Other Start: 04-08-2019 End: 05-26-2023 Tobacco smoking status NJIS Ex-smoker (finding) [facility] Start: 1955 Sex Assigned At Male F [facility] Start: 03-19-1974 End: 05-09-1996 History of tobacco use Current smoker [facility] Work Phone: Start: 03-19-1974 End: 05-09-1996 History of tobacco use Cigarette Smoker [facility] Work Phone: Start: 03-19-2022 End: 05-26-2023 Tobacco use and exposure Smokeless tobacco non-user [facility] Work Phone: Start: 06-18-2023 End: 03-22-2024 Alcohol intake Current drinker of alcohol (finding) [facility] Work Phone: Start: 1955 Sex Assigned At Not on file [facility] Work Phone: Start: 06-08-2023 End: 03-22-2024 Exposure to SARS-CoV-2 (event) Not sure [facility] Has the [employer], or [employer] threatened to shut off services in your home in past 12Mo No [facility] Do you belong to any clubs or organizations such as oriental orthodox groups, unions, fraternal or athletic groups, or school groups? Yes [facility] Are you now , , , , never or living with a partner? [facility] How often to you hav e a drink containing alcohol? 4 or more times a week [facility] How many standard dr inks containing alcohol do you have on a typical day? 1 or 2 [facility] How often do you hav e 6 or more drinks on 1 occasion? Less than monthly [facility] How hard is it for y ou to pay for the very basics like food, housing, medical care, and heating Not hard at all [facility] Do you feel stress - tense, restless, nervous, or anxious, or unable to sleep at night because your mind is troubled all the time - these days [OSQ] Not at all [facility] Start: 03-20-[address] How hard is it for y ou to pay for the very basics like food, housing, medical care, and heating Not very hard [facility] [employer] [facility] Start: 03-27-2022 Tobacco smoking stat NHIS Never smoked tobacco (finding) [facility] Medical Equipment Procedure Code Equipment Code Equipment Origin al Text Equipment Identifier Dates Accu-Chek Carley Plus test strips TEST ONCE DAILY [id number] End: 06-29-2023 Accu-Chek Fastcl ix Lancet Drum USE ONCE DAILY DIRECTED [id number] End: 06-29-2023 Accu-Chek FastCl ix Lancing Device [id number] End: 07-02-2023 Accu-Chek Carley Plus test strips TEST ONCE DAILY [id number] Start: 06-29-2023 End: 07-02-2023 Accu-Chek Fastcl ix Lancet Drum USE ONCE DAILY DIRECTED [id number] Start: 06-29-2023 End: 07-02-2023 Accu-Chek Carley Plus test strips TEST ONCE DAILY [id number] Start: 07-03-2023 Accu-Chek Fastcl ix Lancet Drum USE ONCE DAILY DIRECTED [id number] Start: 07-03-2023 Accu-Chek FastCl ix Lancing Device [id number] Start: 07-03-2023 Accu-Chek Craley Plus test strips TEST ONCE DAILY [id number] Start: 07-03-2023 Accu-Chek Fastcl ix Lancet Drum USE ONCE DAILY DIRECTED [id number] Start: 07-03-2023 Clinical Notes 07-24-2021 to 03-22-2024 Jade Gale MD - 03/22/2024 8:40 AM ESTPatient InstructionsTelephone Encounter - Kelly Brandt - 02/29/2024 11:37 AM EDTTelephone Encounter - Kelly Brandt - 02/29/2024 11:37 AM EDT Note Date & Type Note Facility 03-22-2024 History of Present illness Narrative Subjective Mike Florentino is a 68 y.o. male Chief Complaint Follow-up HPI Patient is in the office for follow-up for CAD, PAD and other medical problems noted below. He has not had any cardiovascular events since he was last seen in the office earlier this year. His weight has not increased from last visit which is encouraging. He maintains active lifestyle. He does not have recent reading on his A1c. He has not had blood work since he was last seen. He has not needed nitroglycerin and denies any symptoms of tissue loss from claudication. He has no trouble with his toes from diabetes. He does have rheumatoid arthritis affecting his hands mostly for which she sees rheumatology and has been on hydroxychloroquine and meloxicam. His examination outside of his overweight was unremarkable. ASSESSMENT AND PLAN: 1. Coronary heart disease, patient is status post PCI of the RCA in 2004 and 2016. He is presently asymptomatic on antiplatelet therapy. No cardiac testing and no change in medication is needed, risk factors have been controlled 2. Obstructive sleep apnea, on CPAP machine. 3. 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 In his quadriceps bilaterally. He has bilateral femoral artery bruits. Encouraged the patient to continue to be physically active and advised him that his walking exercise program is as good as interventions. He is non-smoker currently 4. Hyperlipidemia, on statin therapy, lipid profile is requested 5. Overweight. No significant changes in his weight from last visit and encouragement for more weight loss was provided 6. Essential hypertension, presently under control. No side effect of medications 7. Type II diabetes, managed by PCP apparently is under control. Review of Systems All other systems reviewed and are negative. Vitals: 03/22/24 0842 BP: 100/50 BP Location: Left arm Patient Position: Sitting Pulse: 64 Weight: 103 kg (227 lb) Height: 1.854 m (6' 1 ) Objective Physical Exam Constitutional: Appearance: Normal appearance. HENT: Nose: Nose normal. Neck: Vascular: No carotid bruit. Cardiovascular: Rate and Rhythm: Normal rate. Pulses: Normal pulses. Heart sounds: Normal heart sounds. Pulmonary: Effort: Pulmonary effort is normal. Abdominal: General: Bowel sounds are normal. Palpations: Abdomen is soft. Musculoskeletal: General: Normal range of motion. Cervical back: Normal range of motion. Right lower leg: No edema. Left lower leg: No edema. Skin: General: Skin is warm and dry. Neurological: General: No focal deficit present. Mental Status: He is alert. Psychiatric: Mood and Affect: Mood normal. Behavior: Behavior normal. Thought Content: Thought content normal. Judgment: Judgment normal. Allergies Ticagrelor Current Medications Current Outpatient Medications: clopidogrel (Plavix) 75 mg tablet, Take 1 tablet (75 mg) by mouth once daily., Disp: 90 tablet, Rfl: 3 Farxiga 10 mg, Take 1 tablet (10 mg) by mouth once daily in the morning. Take before meals., Disp: , Rfl: hydroxychloroquine (Plaquenil) 200 mg tablet, Take 1 tablet (200 mg) by mouth 2 times a day., Disp: , Rfl: meloxicam (Mobic) 7.5 mg tablet, Take 1 tablet (7.5 mg) by mouth early in the morning.., Disp: , Rfl: metFORMIN (Glucophage) 500 mg tablet, Take 2 tablets (1,000 mg) by mouth 2 times a day., Disp: , Rfl: ramipril (Altace) 10 mg capsule, take 1 capsule by mouth once daily, Disp: 90 capsule, Rfl: 3 rosuvastatin (Crestor) 10 mg tablet, Take 1 tablet (10 mg) by mouth once daily at bedtime., Disp: 90 tablet, Rfl: 3 sildenafil (Viagra) 100 mg tablet, 1 tablet (100 mg) if needed., Disp: , Rfl: SITagliptin phosphate (Januvia) 100 mg tablet, Take 1 tablet (100 mg) by mouth once daily., Disp: , Rfl: tamsulosin (Flomax) 0.4 mg 24 hr capsule, Take 1 capsule (0.4 mg) by mouth once daily. (Patient taking differently: Take 1 capsule (0.4 mg) by mouth 2 times a day.), Disp: , Rfl: testosterone cypionate (Depo-Testosterone) 200 mg/mL injection, INJECT 300 mg (1.5 ml) INTRAMUSCULARLY EVERY FOUR weeks, Disp: , Rfl: verapamil SR (Calan-SR) 240 mg ER tablet, take 1 tablet by mouth once daily, Disp: 90 tablet, Rfl: 3 Assessment/Plan 1. ASCVD (arteriosclerotic cardiovascular disease) Follow Up In Cardiology Alanine Aminotransferase Aspartate Aminotransferase Basic Metabolic Panel CBC Lipid Panel Follow Up In Cardiology Alanine Aminotransferase Aspartate Aminotransferase Basic Metabolic Panel CBC Lipid Panel 2. Peripheral vascular disease (CMS-HCC) Follow Up In Cardiology 3. Essential hypertension Follow Up In Cardiology Basic Metabolic Panel Basic Metabolic Panel 4. Hyperlipidemia, unspecified hyperlipidemia type Follow Up In Cardiology Alanine Aminotransferase Aspartate Aminotransferase Lipid Panel Alanine Aminotransferase Aspartate Aminotransferase Lipid Panel 5. Other specified diabetes mellitus without complication, without long-term current use of insulin Follow Up In Cardiology 6. Sleep apnea, unspecified type 7. Former smoker 8. BMI 29.0-29.9,adult Scribe Attestation By signing my name below, I, Buffy Patton LPN , Scribe attest that this documentation has been prepared under the direction and in the presence of Jade Gale MD. Provider Attestation - Scribe documentation All medical record entries made by the Scribe were at my direction and personally dictated by me. I have reviewed the chart and agree that the record accurately reflects my personal performance of the history, physical exam, discussion and plan. documented in this encounter [facility] Work Phone: 03-22-2024 Instructions Buffy Funez LPN - 03/22/2024 8:40 AM EST Please bring all medicines, vitamins, and herbal supplements with you when you come to the office. Prescriptions will not be filled unless you are compliant with your follow up appointments or have a follow up appointment scheduled as per instruction of your physician. Refills should be requested at the time of your visit. BMI was above normal measurement. Current weight: 103 kg (227 lb) Weight change since last visit (-) denotes wt loss 1 lbs Weight loss needed to achieve BMI 25: 37.9 Lbs Weight loss needed to achieve BMI 30: 0.1 Lbs Provided instructions on dietary changes Provided instructions on exercise. Lab work Follow up documented in this encounter [facility] Work Phone: 02-29-2024 Miscellaneous Notes PATIENT IS COMING IN 12/16 AND WOULD LIKE LABS SENT TO [facility] PLEASE AND THANKK YOU documented in this encounter [facility] 02-29-2024 Telephone encounter Note PATIENT IS COMING IN 05/02 AND WOULD LIKE LABS SENT TO [facility] PLEASE AND THANKK YOU [facility] 12-28-2023 Note Patient Education Urology Hypogonadism, Male Male hypogonadism [...] Follow these instructions at home: ? Take [id number] and prescription medicines only as told by [...] with your health care provider. Document Revised: (more content not included)... [facility] 07-02-2023 Miscellaneous Notes Pt called and needs all GULOSE TESTING supplies sent to [facility] due to medicare only covering them from there. documented in this encounter [facility] 07-02-2023 Telephone encounter Note Pt called and needs all GULOSE TESTING supplies sent to [facility] due to medicare only covering them from there. [facility] 07-01-2023 Miscellaneous Notes Pt called yaritza cedeno [...] was going on documented in this encounter [facility] 07-01-2023 Telephone encounter Note Pt called yaritza aid called him stated his insurance is not covering his lancets or strips there wanted to know if you could point him in the right direction as he is not sure [facility] 07-01-2023 Telephone encounter Note It sounds like a formulary issue. They should cover some type of glucometer and test strips. Have him check his formulary and see which brand is covered and then let us know. [facility] 07-01-2023 Telephone encounter Note He did say when he got home he was going to call his insurance and see what was going on [facility] 06-25-2023 History of Present illness Narrative Subjective Patient ID: Mike Florentino is a 67 y.o. male. Mike presents today to discuss several issues regarding his medications. He had labs done ordered by the inorganic chemist at another facility and is here to [...] April 08, [address] Adames in [place] and it was normal. He has been getting pain in his thighs lately. His inorganic chemist told him it was probably his circulation [...] polyneuropathy, without long-term current use of insulin ([facility]) We discussed his medications. He would like [...] is aware of that. Peripheral vascular disease ([facility]) Follow-up with cardiology as directed. Controlling risk factors are important. His lipids and CMP were essentially at goal. 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 documented in this encounter [facility] Work Phone: 06-18-2023 Instructions Willian Sumner MA [...] of your visit. documented in this encounter [facility] Work Phone: 03-27-2022 Evaluation note Encounter Date [...] sleepiness, or poor response to treatment. . [facility] Other 03-09-2022 NotePROCEDURE: XR KNEE RT 4V [...] Electronically authenticated by: EILEEN QURESHI Date: 2021-07-24 17:01[facility] assessment information available[facility] Work Phone: Evaluation note* Diagnosis ASCVD (arteriosclerotic cardiovascular disease)- Primary Unspecified cardiovascular disease Peripheral vascular disease (CMS/HCC) Unspecified peripheral vascular disease Essential hypertension Unspecified essential hypertension Hyperlipidemia, unspecified hyperlipidemia type Other specified diabetes mellitus without complication, without long-term current use of insulin ([facility]) Former smoker Personal history of tobacco use, presenting hazards to health Overweight documented in this encounter [facility] Work Phone: Evaluation note* Diagnosis Type 2 diabetes mellitus with diabetic polyneuropathy, without long-term current use of insulin ([facility])- Primary Normocytic normochromic anemia Unspecified anemia Peripheral vascular disease ([facility]) Unspecified peripheral vascular disease Thrombocytopenia ([facility]) Unspecified thrombocytopenia [facility] Diagnosis Type 2 diabetes mellitus with diabetic polyneuropathy, without long-term current use of insulin ([facility])- Primary [facility]* Diagnosis Type 2 diabetes mellitus with diabetic polyneuropathy, without long-term current use of insulin ([facility])- Primary documented [facility]* Diagnosis Normocytic normochromic anemia- Primary Unspecified anemia Type 2 diabetes mellitus with diabetic polyneuropathy, without long-term current use of insulin ([facility]) Essential hypertension Unspecified essential hypertension documented [facility]* Diagnosis ASCVD (arteriosclerotic cardiovascular disease)- Primary Unspecified cardiovascular disease Peripheral vascular disease ([facility]) Unspecified peripheral vascular disease Essential hypertension Unspecified essential hypertension Hyperlipidemia, unspecified hyperlipidemia type Other specified diabetes mellitus without complication, without long-term current use of insulin Obstructive sleep apnea syndrome Obstructive sleep apnea (adult) (pediatric) Former smoker Personal history of tobacco use, presenting hazards to health BMI 29.0-29.9,adult Diabetes mellitus type II, non insulin dependent (Multi) Type II or unspecified type diabetes mellitus without mention of complication, not stated as uncontrolled documented in this encounter [facility] Work Phone: History general Narrative - Reported* Type Description Date Medical History ROCK (obstructive sleep apnea) Medical History CAD in [place] artery Surgical History heart stent Surgical History left hip replacement [facility] Other InstructionsNot on filedocumented in this encounter [facility] SystemInstructionsNot on filedocumented in this encounter [facility]Not on filedocumented in this encounter [facility]ructionsNot on filedocumented in this encounter [facility] System[facility]ructionsNot on filedocumented in this encounter [facility]ructionsNot on filedocumented in this [facility] SystemReason for referral (narrative)* Consultation (Routine) - Authorized Specialty Diagnoses / Procedures Referred By Contyulisa t Referred To Contact Cardiology Diagnoses ASCVD (arteriosclerotic cardiovascular disease) Peripheral vascular disease (CMS/HCC) Essential hypertension Hyperlipidemia, unspecified hyperlipidemia type Other specified diabetes mellitus without complication, without long-term current use of insulin (CMS/HCC) Procedures Follow Up In Cardiology Jade Gale MD [address] [place] [id number] [address], [address] [address] Jade Gale MD [address] [place] [address] [address], [address] [address] Referral ID Status Reason Start Date Expiration Date V isits Requested Visits Authorized [id number] Authorized 06/18/2023 06/17/2024 1 1 [facility] Work Phone: Summary Purpose Family History No [...] Complaint Obstructive sleep ap molina Chief Complaint ROCK/ 2 YEAR Chief Complaint * MIKE FLORENTINO is being [...] with tobacco use. 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 with previous QUALITY CONTROL ENGINEER the right SFA 2008, currently has stable [...] which is scheduled * [facility], [facility] Additional Source Comments (unrecognized sect ion and content) No Status Records FoundNo Status Records FoundNo Status Records FoundNo Status Records FoundNo Status Records FoundNo Status Records FoundNo Status Records FoundNo Status Records FoundNo Status Records FoundNo Status Records Found INFORMATION SOURCE (unrecogn ized section and content) DATE CREATED AUTHOR 11/06/2017 Donna wong DATE CREATED AUTHOR AUTHOR'S ORGANIZ ATION 02/16/2022 [facility] DATE CREATED AUTHOR AUTHOR'S ORGANIZ ATION 02/16/2022 [facility] DATE CREATED AUTHOR AUTHOR'S ORGANIZ ATION 05/08/2022 [facility] DATE CREATED AUTHOR AUTHOR'S ORGANIZ ATION 01/07/2023 [facility] DATE CREATED AUTHOR AUTHOR'S ORGANIZ ATION 03/25/2023 [facility] DATE CREATED AUTHOR AUTHOR'S ORGANIZ ATION 06/29/2023 [facility] DATE CREATED AUTHOR AUTHOR'S ORGANIZ ATION 03/10/2024 [facility] DATE CREATED AUTHOR AUTHOR'S ORGANIZ ATION 03/23/2024 [facility] DATE CREATED AUTHOR AUTHOR'S ORGANIZ ATION 04/07/2024 [facility] Care Teams (unrecognized sec tion and content) Team Status: Active Member Role Status Dates Josh BermudezrinkuDO gregg Primary Care Provider Active Team Status: Inactive Member Role Status Dates Josh LararinkuDO gregg Primary Care Provider Active Start: March 22, 2024 End: March 22, 2024 Lyn Pollack NP Attending Provider Active Start: March 22, 2024 End: March 22, 2024 Team Status: Inactive Member Role Status Dates Josh Lararinkugregg Primary Care Provider Active Aryan Garcia MD Attending Provider Active Tanning Drum Operator Relationship Specialty Start Date End Date Josh Ospina DO [address] [place] [address] PCP - General 05/18/99 Tanning Drum Operator Relationship Specialty Start Date End Date Josh Ospina DO [address] [place] [address] PCP - General Family Medicine 03/19/22 Tanning Drum Operator Relationship Specialty Start Date End Date Josh Ospina DO [address] [place] [address] PCP - General Family Medicine 03/19/22 Tanning Drum Operator Relationship Specialty Start Date End Date Josh Ospina DO [address] [place] [address] PCP - General Family Medicine 03/19/22 Tanning Drum Operator Relationship Specialty Start Date End Date Josh Ospina DO [address] [place] [address] PCP - General Family Medicine 03/19/22 Tanning Drum Operator Relationship Specialty Start Date End Date Josh Ospina DO [address] [place] [address] PCP - General Family Medicine 03/19/22 Tanning Drum Operator Relationship Specialty Start Date End Date Josh Ospina DO [address] [place] [address] PCP - General Family Medicine 03/19/22 Tanning Drum Operator Relationship Specialty Start Date End Date Josh Ospina DO [address] [place] [address] PCP - General Family Medicine 03/19/22 Tanning Drum Operator Relationship Specialty Start Date End Date Josh Ospina DO PCP - General 05/18/99 Goals (unrecognized section and content) Goals may be documented in a n alternate section Reason for Visit (unrecogniz ed section and content) Reason Comments Follow-up 9 months Specialty Diagnoses / Procedures Referred By Contyulisa t Referred To Contact Cardiology Diagnoses ASCVD (arteriosclerotic cardiovascular disease) Peripheral vascular disease ([facility]) Essential hypertension Hyperlipidemia, unspecified hyperlipidemia type Other specified diabetes mellitus without complication, without long-term current use of insulin Procedures Follow Up In Cardiology Jade Gale MD [address] [address], [address] [address] Phone: tel: fax: Jade Gale MD [address] [facility] [address], [address] [address] Phone: tel: fax: Referral ID Status Reason Start Date Expiration Date V isits Requested Visits Authorized [id number] Authorized 06/18/2023 06/17/2024 1 Reason Onset Date Comments Med Refill 07/01/2023 [...] BE BASED ON THE PRIMARY CLINICAL RECORDS. [facility]. provides no warranty or guarantee of the accuracy or completeness of information in this document.
[2024-04-18 08:14] LABS: Basophils Percent Auto 0.2 % (0.2-2.0); Eosinophils Absolute Auto 0.1 10^3/uL (0.0-0.7); Eosinophils Percent Auto 1.6 % (0.9-7.0); Hematocrit 37.1 % (42.0-54.0); Hemoglobin 12.5 g/dL (14.0-18.0); Immature Granulocytes Abs Auto 0.01 10^3/uL (0.00-0.03); Immature Granulocytes Pct Auto 0.2 % (0.0-0.5); Lymphocytes Absolute Auto 1.1 10^3/uL (1.2-3.8); Lymphocytes Percent Auto 20.6 % (20.5-60.0); Mean Corpuscular HGB Conc 33.7 g/dL (29.9-35.2); Mean Corpuscular Hemoglobin 31.6 pg (25.9-34.0); Mean Corpuscular Volume 93.9 fL (80.0-94.0); Mean Platelet Volume 11.2 fL (9.5-13.5); Monocytes Absolute Auto 0.3 10^3/uL (0.3-0.8); Monocytes Percent Auto 6.6 % (1.7-12.0); Neutrophils Absolute Auto 3.7 10^3/uL (1.4-6.5); Neutrophils Percent Auto 70.8 % (43.0-75.0); Platelet Count 149 10^3/uL (150-450); Red Blood Count 3.95 10^6/uL (4.70-6.10); Red Cell Distribution Width 13.3 % (11.0-15.0); White Blood Count 5.2 10^3/uL (4.0-11.0)
[2024-04-18 08:24] LABS: Erythrocyte Sedimentation Rate 4 mm/hr (<=20)
[2024-04-18 08:52] LABS: Alanine Aminotransferase 27 U/L (16-63); Albumin Globulin Ratio 1.2; Albumin Level 3.6 g/dL (3.4-5.0); Alkaline Phosphatase 41 U/L (46-116); Anion Gap 12.6; Aspartate Amino Transferase 21 U/L (15-37); BUN Creatinine Ratio 16.8; Bilirubin Total 0.7 mg/dL (0.2-1.0); Calcium 8.5 mg/dL (8.5-10.1); Carbon Dioxide 30.1 mmol/L (21.0-32.0); Chloride 103 mmol/L (98-107); Estimated GFR (African America >60 (>=60 mL/min/1.73m^2); Estimated GFR (Non-African Ame >60 (>=60 mL/min/1.73m^2); Globulin 2.9 g/dL; Glucose 123 mg/dL (74-106); Potassium 4.7 mmol/L (3.5-5.1); Sodium 141 mmol/L (136-145); Total Protein 6.5 g/dL (6.4-8.2)
== END 2024-04-18 07:18 | disposition home or self-care (01) ==
LOC: LAB 07:20
PROVIDERS: PCP Family Medicine; Visit Provider Registered Nurse
DX: D64.9 Anemia, unspecified (principal); I10 Essential (primary) hypertension; E11.42 Type 2 diabetes mellitus with diabetic polyneuropathy; I25.10 Atherosclerotic heart disease of native coronary artery without angina pectoris; E78.5 Hyperlipidemia, unspecified; M05.79 Rheumatoid arthritis 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; M15.0 Primary generalized (osteo)arthritis; Z79.899 Other long term (current) drug therapy
CPT/HCPCS: 36415; 80053; 80061; 83036; 85025; 85652

== ENCOUNTER 2024-04-18 07:32 | Outpatient (OUT) | payer MEDICARE, OTHER, SELFPAY ==
--- OUTSIDE RECORDS SUMMARY | 2024-04-18 07:38 | XMS_ITS | CCD ---
Author Organization [facility] Inform ion [facility] Care Team Providers Care Air Intercept Controller Name Role Phone EILEEN PURVIS Unavailable Unavai JOSH Farrar Unavailable Unavailable Josh Ospina Unavailable Unavailable Unavailable Unavailable Unavailable Baljinder, Dr. Jade Sanz Attending Shantel vailable Janell, Josh Willy Primary Care Unavailab le Gale, Dr. Jade Sanz Referring Shantel vailable [facility] esc[facility] Willy Primary Care Unavailab le Baljinder, Dr. Jade Sanz Referring Shantel vailable Gale, Dr. Jade Sanz Attending Shantel ildable Aryan Garcia Unavailable DO Josh Ospina Primary Care Provider MD Aryan Garcia Attending Provider DR SHADY MOHAN Attending Unavailable JANELL, DR [...] MISC, DR GIVENS Admitting Unavailable BAILEY, DR RPASAD Attending Unavailable BAILEY, DR PRASAD Admitting Unavailable [...] Unavailable Bailey, Shanice Attending Unavailable Furlong, Josh [facility] Care Unavailable Aryan Garcia Attending Unavailable Furlong, Josh [facility] Care Unavailable Aryan Garcia Admitting Unavailable Furlong Josh GONGORA Primary Care Provider Furlong Josh GONGORA Primary Care Provider [phone] JOSH OSPINA Attending Unavailable FURLONG, JOSH Sanchez [...] Ticagrelor; Translations: [Brilinta TABS] Drug Allergy 2 [facility] (2 sources) Ticagrelor; Translations: [TICAGRELOR] Drug Allergy 2 [facility] (2 sources) Bee/Wasp/Ant venom; Translations: [Bee Stings] Propensity to adverse reactions (disorder) [facility] (2 sources) No Known Medication Allergies; Translations: [No Known Medication Allergies] Propensity to adverse reactions (disorder) [facility] Repository Medications Current Medications Medication Drug Class(es) [...] polyneuropathy, without long-term current use of insulin ([facility]) Take 1 tablet (300 mg total) by [...] 06-25-2023 05-04-2023 Other aftercare (1 source) Other residential (current) drug therapy; Translations: [OTH [facility] CURRENT DRUG THERAPY] Onset: 07-16-2021 Episodic Other [...] VILLAVICENCIO, Shady Rizo Where: [facility] [address] [address]- Medications What How Much When Instructions Unchanged [...] you for choosing us for your care. [facility] Ambulatory Visit Summaryon 0 01-12-2024 Ambulatory Visit [...] AM EDT With: Where: [facility] [place] [address] [place] [address]- Thursday 8:45 AM EST With: JAMSHID VILLAVICENCIO, Shady Rizo Where: [facility] [address] [address]- Medications What How Much When Instructions Unchanged [...] you for choosing us for your care. [facility] Ambulatory Visit Summaryon 0 12-28-2023 Ambulatory Visit [...] AM EDT With: Where: [facility] [address] [place] [address]- Thursday 8:45 AM EST With: Shady MOHAN MD Where: [facility] [address] [facility] [place] [address]- You Need to Schedule the Following Appointments Follow Up with Shady MOHAN MD, URL When: Where: [facility] [address], [facility] [place] [address]- Medications What How Much When Instructions Changed sildenafil (sildenafil 100 mg Tab) 1 Tablets By Mouth As Directed as needed for Other (see comment) Take 1 hour prior to sexual activity. Do not exceed more than 100 mg (1 tab) within 24 hours. Pickup at [facility] Changed testosterone (testosterone cypionate 200 mg/ mL IM Mavis) 300 Milligram Intramuscular Every 4 weeks Pickup at [facility] Unchanged clopidogrel (clopidogrel 75 mg Tab) [...] physician if questions or concerns Pharmacy Information [facility]: [address] [place], [place] [id number] [phone] What How Much When Comments Stop Taking [...] characteristics duri (more content not included)... Normal [facility] PSA Totalon 12-28-2023 Prostate specific Ag [Mass/Vol] 0.5 ng/mL Normal 0.1-3.5 [facility] Comment on above: Result Comment: The concentration of PSA determined by different manufacturers can vary due to differences in assay methods and reagent specificity. Values obtained from different assay methods cannot be used interchangeably. The methodology used for this result was chemiluminescence using [employer]'s Access Hybritech PSA reagent. Performed By: #### 1 [id number] #### [facility] [address] [place] [address] Urology Office/Clinic Noteon 12-28-2023 Urology Office/Clinic Note [...] knows to get T level drawn exactly intermediate in-between injections before 10 am. 2. BPH [...] [facility] [address], [place] [address]- Additional Instructions: 4 mos with T level. [...] Oral, Daily Caio (more content not included)... [facility] Comment on above: Result Comment: Elec tronically Signed By: Shady MOHAN MD\.br\Date and Time Signed: 12/28/23 13:12 EDT\.br\Electronically Co-Signed By: Kaia Valdez\.br\Date and Time Co-Signed: 12/28/23 13:08 EDT Pre-Certification Formon Pre-Certification Form [id number]#1.0 0TIFF [facility] Pre-Certification Formon Pre-Certification Form [id number]#1.0 0TIFF [facility] Lab Reportson 06-30-2023 Lab Reports [id number]#1.0 0TIFF [facility] 06-20-2023 Lab Reports [id number]#1.0 0TIFF [facility] Pre-Certification Formon Pre-Certification Form [id number]#1.0 0TIFF [facility] Complete Blood Count Auto Di ffon 03-17-2023 Basophils (Bld) [#/Vol] 0.0 10*3/uL Normal 0.0-0.2 [facility] Comment on above: Performed By: #### C MP, ESR, CBC #### [facility] [address] Basophils/100 WBC (Bld) 0.3 % Normal . [facility] Comment on above: Performed By: #### C MP, ESR, CBC #### [facility] [address] Eosinophils (Bld) [#/Vol] 0.1 10*3/uL Normal 0.0-0.45 [facility] Comment on above: Performed By: #### C MP, ESR, CBC #### [address] Eosinophils/100 WBC (Bld) 1.2 % Normal . [facility] Comment on above: Performed By: #### C MP, ESR, CBC #### [address] Erythrocyte distribution width (RBC) [Ratio] 14.1 % Normal 12.0-14.8 [facility] Comment on above: Performed By: #### C MP, ESR, CBC #### [address] Hematocrit (Bld) [Volume fraction] 38.4 % Low 38.8-50.0 [facility] Comment on above: Performed By: #### C MP, ESR, CBC #### [place] [address] [place] Hemoglobin (Bld) [Mass/Vol] 13.1 g/dL Normal 13.0-17.0 [facility] Comment on above: Performed By: #### C MP, ESR, CBC #### [place] [address] [place] Lymphocytes (Bld) [#/Vol] 1.0 10*3/uL Normal 1.00-4.8 [facility] Comment on above: Performed By: #### C MP, ESR, CBC #### [place] [address] [place] Lymphocytes/100 WBC (Bld) 22.5 % Normal . [facility] Comment on above: Performed By: #### C MP, ESR, CBC #### [address] MCH (RBC) [Entitic mass] 31.1 pg Normal 27.5-35.2 [facility] Comment on above: Performed By: #### C MP, ESR, CBC #### [address] MCV (RBC) [Entitic vol] 91.2 fL Normal 83.5-101 [facility] Comment on above: Performed By: #### C MP, ESR, CBC #### [address] Mean Corpuscular HGB Conc 34.1 g/dL Normal 32.5-35.6 [facility] Comment on above: Performed By: #### C MP, ESR, CBC #### [address] Monocytes (Bld) [#/Vol] 0.3 10*3/uL Normal 0.0-0.8 [facility] Comment on above: Performed By: #### C MP, ESR, CBC #### [address] Monocytes/100 WBC (Bld) 7.3 % Normal . [facility] Comment on above: Performed By: #### C MP, ESR, CBC #### [address] Neutrophils (Bld) [#/Vol] 3.1 10*3/uL Normal 1.8-7.7 [facility] Comment on above: Performed By: #### C MP, ESR, CBC #### [address] Neutrophils/100 WBC (Bld) 68.7 % Normal . [facility] Comment on above: Performed By: #### C MP, ESR, CBC #### [address] NRBC% 0.0 /100{WBC} Normal 0-0.5 [facility] Comment on above: Performed By: #### C MP, ESR, CBC #### [address] Platelet mean volume (Bld) [Entitic vol] 9.7 fL Normal 6.6-10.1 [facility] Comment on above: Performed By: #### C MP, ESR, CBC #### [address] Platelets (Bld) [#/Vol] 144 10*3/uL Low 150-450 [facility] Comment on above: Performed By: #### C MP, ESR, CBC #### [address] RBC (Bld) [#/Vol] 4.21 10*6/uL Normal 3.90-5.60 [facility] Comment on above: Performed By: #### C MP, ESR, CBC #### [address] WBC (Bld) [#/Vol] 4.5 10*3/uL Normal 4.1-10.5 [facility] Comment on above: Performed By: #### C MP, ESR, CBC #### [address] Comprehensive Metabolic Pane jerrell 03-17-2023 Albumin [Mass/Vol] 4.5 g/dL Normal 3.5-5.7 [facility] Comment on above: Performed By: #### C MP, ESR, CBC #### [address] Albumin/Globulin [Mass ratio] 2.0 {ratio} Normal [facility] Comment on above: Performed By: #### C MP, ESR, CBC #### [address] ALP [Catalytic activity/Vol] 43 U/L Normal 34-104 [facility] Comment on above: Result Comment: PERF ORMED BY: [place] [address] PATHOLOGIST SENIOR CONTROLLER BALDEMAR MCKINLEY M.D. Performed By: #### C MP, ESR, CBC #### [address] ALT [Catalytic activity/Vol] 14 U/L Normal 7-52 [facility] Comment on above: Performed By: #### C MP, ESR, CBC #### [address] Anion gap [Moles/Vol] 10.2 mmol/L Normal 6.0-15.0 [facility] Comment on above: Performed By: #### C MP, ESR, CBC #### [address] AST [Catalytic activity/Vol] 13 U/L Normal 13-39 [facility] Comment on above: Performed By: #### C MP, ESR, CBC #### [address] Bilirubin [Mass/Vol] 0.6 mg/dL Normal 0.3-1.0 [facility] Comment on above: Performed By: #### C MP, ESR, CBC #### [address] Calcium [Mass/Vol] 9.5 mg/dL Normal 8.6-10.3 [facility] Comment on above: Performed By: #### C MP, ESR, CBC #### [address] Chloride [Moles/Vol] 100 mmol/L Normal 98-107 [facility] Comment on above: Performed By: #### C MP, ESR, CBC #### [address] CO2 [Moles/Vol] 30.5 mmol/L Normal 21.0-31.0 [facility] [place] Comment on above: Performed By: #### C MP, ESR, CBC #### [address] Creatinine [Mass/Vol] 0.98 mg/dL Normal 0.70-1.30 [facility] Comment on above: Performed By: #### C MP, ESR, CBC #### [facility] [address] [place] [address] [place] GFR/1.73 sq M.predicted MDRD (S/P/Bld) [Vol rate/Area] mL/min/{1.73_m2} Normal [facility] Comment on above: Performed By: #### C MP, ESR, CBC #### [facility] [address] Globulin (S) [Mass/Vol] 2.3 g/dL Normal [facility] Comment on above: Performed By: #### C MP, ESR, CBC #### [address] Glucose [Mass/Vol] 177 mg/dL High 70-100 [facility] Comment on above: Result Comment: [place] Glucose Reference Range is dependent on time and content of last meal. Glucose of more than 200 mg/dL in a nonstressed, ambulatory subject supports the diagnosis of Diabetes Mellitus. ADA recommended reference range Performed By: #### C MP, ESR, CBC #### [address] Potassium [Moles/Vol] 4.7 mmol/L Normal 3.5-5.1 [facility] Comment on above: Performed By: #### C MP, ESR, CBC #### [place] [address] [place] Protein [Mass/Vol] 6.8 g/dL Normal 6.4-8.9 [facility] Comment on above: Performed By: #### C MP, ESR, CBC #### [place] [address] [place] Sodium [Moles/Vol] 136 mmol/L Normal 136-145 [facility] Comment on above: Performed By: #### C MP, ESR, CBC #### [place] [address] [place] Urea nitrogen [Mass/Vol] 16 mg/dL Normal 7-25 [facility] Comment on above: Performed By: #### C MP, ESR, CBC #### [facility] [address] Erythrocyte Sedimentation Ra riya 03-17-2023 ESR (Bld) [Velocity] 15 mm/h Normal 0-19 [facility] Comment on above: Result Comment: PERF ORMED BY: [place] [address] PATHOLOGIST SENIOR CONTROLLER BALDEMAR MCKINLEY M.D. Performed By: #### C MP, ESR, CBC #### [facility] [address] VASC LAB Abdominal Aorta/Isela ac/IVC Ultraon 01-05-2023 VASC LAB Abdominal Aorta/Iliac/IVC Ultra [address], [address] [place] [address] Vascular Lab Report Abdominal Aorta Iliac Ultrasound/IVC Ultrasound Patient Name: MIKE Emery FLORENTINO [place] Physician: [id number] Jade Gale MD, [facility] Study Date: 01/05/2023 Referring JADE GALE Physician: MRN/PID: [id number] PCP: Josh Ospina MD Accession/Order#: [id number] CC Report to: Date of : 1955 Technologist: Deidre Jimenez RD, [facility] Gender: M Technologist 2: Admission Status: Outpatient Location Performed: [facility] Diagnosis/ICD: K71-Xzblhrjms primary hypertension; R09.89-Bruit; I73.9-Peripheral vascular disease, unspecified Indication: ASCVD, Former Smoker, SFA END FINDER TWISTING DEPARTMENT-2008, Hyperlipidemia, Diabetes, ROCK, Overweight, PTCA-2004 and 2016 Procedure/CPT: 42429 Ultrasound, abdominal aorta, real time with image documentation, screening study for ([id number] CONCLUSIONS: Aorta/Common Iliac Arteries/IVC: No evidence of abdominal aortic aneurysm. Imaging AND Doppler Findings: AORTA AP Lateral PSV Proximal 1.49 cm 1.36 cm 101.0 cm/s Mid 1.55 cm 1.43 cm 97.0 cm/s Distal 1.57 cm 1.51 cm 72.0 cm/s RIGHT AP Lateral PSV FRANCISCO Proximal 1.08 cm 0.81 cm 147.00 cm/s LEFT AP Lateral PSV FRANCISCO Proximal 0.83 cm 0.96 cm 94.00 cm/s 12324 Jade Gale MD, FACC Final Normal [facility] TESTOSTERONE, TOTALon 2021 Testosterone [Mass/Vol] 229 ng/dL Critically low 264-916 [facility] Comment on above: Result Comment: Adul t male reference interval is based on a population of healthy nonobese males (BMI <30) between 19 and 39 years old. beverly Kelly.al. JCEM 2017,102;1890-4436. PMID: [id number]. Performed By: #### T ESTTOT ####[facility] [address] [place], [place] [address]UcAlex Carranza Office Visit (Cardiology)on 02-04-2022 Follow-up visit [...] Weight Tips; Status:Complete - Retrospective Authorization; Done: [id number] Some eating tips that can help you lose weight.; Status:Complete - Retrospective Authorization; Done: [id number] SocHx: Former smoker Tobacco Use Screening; Status:Complete; Done: [id number] Patient Instructions Please bring all medicines, vitamins, 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 with previous END FINDER TWISTING DEPARTMENT the right SFA 2008, currently has no [...] December 2021 was 6.0 Jade Gale MD, [facility] Surgical History Problems History of Angioplasty [...] negative for complaint. Vitals Vital Signs Recorded: [id number] 08:27AM Heart Rate74, R Radial Jdruwika248, LUE, Sitting Wxqfevrvy65, LUE, Sitting Height6 ft 2 in Wkkdtk127 lb 2 oz BMI Ttnbqxksey34.03 kg/m2 BSA Calculated2.29 Tobacco Useb) No PHQ-2 #1. Over the last 2 weeks have you felt down, depressed or hopeless? (If yes, answer PHQ-9 below)No PHQ-2 #2. Over the last 2 weeks have you felt littl (more content not included)... Normal [facility] GLYCOHEMOGLOBIN A1Con 2021 ADA RECOMMENDATION SEE BELOW Normal [facility] Comment on above: Result Comment: ADA RECOMMENDED LIMIT 4.0 - 6.0 ADA THERAPEUTIC TARGET < 7.0 ACTION SUGGESTED > 7.0 Performed By: #### A 1C #### [facility] [address] [place] [address] [address] Juan Alberto Carranza Glucose [Mass/Vol] 126 mg/dL Normal [facility] Comment on above: Performed By: #### A 1C #### [facility] [address] [place] [address] [address] Juan Alberto Carranza HbA1c (Bld) [Mass fraction] 6.0 % Normal 4.5-6.2 [facility] Comment on above: Performed By: #### A 1C #### [facility] [address] [place] [address] [address] Juan Alberto Carranza LIPID PROFILEon 01-10-2022 CHOL-HDL RATIO NORM SEE BELOW Normal [facility] Comment on above: Result Comment: 3.3 - 4.4 LOW RISK 4.4 - 7.1 AVERAGE RISK 7.1 - 11.0 MODERATE RISK >11.0 HIGH RISK Performed By: #### L IPID, CMP #### [facility] [address] [place] [address] [address] Juan Alberto Carranza Cholesterol [Mass/Vol] 136 mg/dL Normal <=200 [facility] Comment on above: Performed By: #### L IPID, CMP #### [facility] [address] [place] [address] [address] Juan Alberto Carranza Cholesterol in HDL [Mass/Vol] 62 mg/dL Critically high 40-60 [facility] Comment on above: Performed By: #### L IPID, CMP #### [facility] [address] [address] [address] Juan Alebrto Carranza Cholesterol in LDL [Mass/Vol] 57.6 mg/dL Normal [facility] Comment on above: Performed By: #### L IPID, CMP #### [facility] [address] [address] [address] Juan Alberto Carranza Cholesterol.total/Ch olesterol in HDL [Mass ratio] 2.2 {ratio} Normal [facility] Comment on above: Performed By: #### L IPID, CMP #### [facility] [address] [address] [address] Juan Alberto Carranza HDL NORMAL > or = 60 mg/dl - LO W CARDIOVASCULAR RISK <40 mg/dl - HIGH CARDIOVASCULAR RISK Normal [facility] Comment on above: Performed By: #### L IPID, CMP #### [facility] [address] [address] [address] Juan Alberto Carranza LDL CALC NORMAL SEE BELOW Normal [facility] Comment on above: Result Comment: <100 mg/dl OPTIMAL 100 - 129 mg/dl NEAR OR ABOVE OPTIMAL 130 - 159 mg/dl BORDERLINE HIGH 160 - 189 mg/dl HIGH >190 mg/dl VERY HIGH Performed By: #### L IPID, CMP #### [facility] [address] [address] [address] Juan Alberto Carranza Triglyceride [Mass/Vol] 82 mg/dL Normal <=150 [facility] Comment on above: Performed By: #### L IPID, CMP #### [facility] [address] [address] [address] Juan Alberto Carranza VLDL CALC 16.4 mg/dL Normal [facility] Comment on above: Performed By: #### L IPID, CMP #### [facility] [address] [place] [address] Dr. Juan Alberto Carranza PROF 14(COMP METB)on 022 Albumin [Mass/Vol] 4.0 g/dL Normal 3.4-5.0 [facility] Comment on above: Performed By: #### L IPID, CMP #### [facility] [address] [address] [address] Juan Alberto Carranza Albumin/Globulin [Mass ratio] 1.3 {ratio} Normal [facility] Comment on above: Performed By: #### L IPID, CMP #### [facility] [address] [address] [address] Juan Alberto Carranza ALP [Catalytic activity/Vol] 48 U/L Normal 46-116 [facility] Comment on above: Performed By: #### L IPID, CMP #### [facility] [address] [address] [address] Juan Alberto Carranza ALT [Catalytic activity/Vol] 28 U/L Normal 16-63 [facility] Comment on above: Performed By: #### L IPID, CMP #### [facility] [address] [address] [address] Juan Alberto Carranza Anion gap [Moles/Vol] 13.2 mmol/L Normal [facility] Comment on above: Performed By: #### L IPID, CMP #### [facility] [address] [address] [address] Juan Alberto Carranza AST [Catalytic activity/Vol] 13 U/L Critically low 15-37 [facility] Comment on above: Performed By: #### L IPID, CMP #### [facility] [address] [place] [address] Dr. Juan Alberto Carranza Bilirubin [Mass/Vol] 0.6 mg/dL Normal 0.2-1.0 [facility] Comment on above: Performed By: #### L IPID, CMP #### [facility] [address] [place] [address] Dr. Juan Alberto Carranza Calcium [Mass/Vol] 8.8 mg/dL Normal 8.5-10.1 [facility] Comment on above: Performed By: #### L IPID, CMP #### [facility] [address] [place] [address] Dr. Juan Alberto Carranza Chloride [Moles/Vol] 100 mmol/L Normal 98-107 [facility] Comment on above: Performed By: #### L IPID, CMP #### [facility] [address] [place] [address] Dr. Juan Alberto Carranza CO2 [Moles/Vol] 29.1 mmol/L Normal 21.0-32.0 [facility] Comment on above: Performed By: #### L IPID, CMP #### [facility] [address] [place] [address] Dr. Juan Alberto Carranza Creatinine [Mass/Vol] 0.89 mg/dL Normal 0.70-1.30 [facility] Comment on above: Performed By: #### L IPID, CMP #### [facility] [address] [place] [address] Dr. Juan Alberto Carranza EGFR-AF MACANESE >60 Normal >=60 [facility] Comment on above: Performed By: #### L IPID, CMP #### [facility] [address] [place] [address] Dr. Juan Alberto Carranza EGFR-NON AF MACANESE >60 Normal >=60 [facility] Comment on above: Performed By: #### L IPID, CMP #### [facility] [address] [place] [address] Dr. Juan Alberto Carranza Globulin (S) [Mass/Vol] 3.0 g/dL Normal [facility] Comment on above: Performed By: #### L IPID, CMP #### [facility] [address] [place] [address] Dr. Juan Alberto Carranza Glucose [Mass/Vol] 134 mg/dL Critically high 74-106 [facility] Comment on above: Performed By: #### L IPID, CMP #### [facility] [address] [place] [address] Dr. Juan Alberto Carranza Potassium [Moles/Vol] 4.3 mmol/L Normal 3.5-5.1 [facility] Comment on above: Performed By: #### L IPID, CMP #### [facility] [address] [place] [address] Dr. Juan Alberto Carranza Protein [Mass/Vol] 7.0 g/dL Normal 6.4-8.2 [facility] Comment on above: Performed By: #### L IPID, CMP #### [facility] [address] [place] [address] Dr. Juan Alberto Carranza Sodium [Moles/Vol] 138 mmol/L Normal 136-145 [facility] Comment on above: Performed By: #### L IPID, CMP #### [facility] [address] [place] [address] Dr. Juan Alberto Carranza Urea nitrogen [Mass/Vol] 17.0 mg/dL Normal 7.0-18.0 [facility] Comment on above: Performed By: #### L IPID, CMP #### [facility] [address] [place] [address] Dr. Juan Alberto Carranza Urea nitrogen/Creatinine [Mass ratio] 19.1 mg/mg Normal [facility] Comment on above: Performed By: #### L IPID, CMP #### [facility] [address] [place] [address] Dr. Juan Alberto Carranza TESTOSTERONE, TOTALon 2021 Testosterone [Mass/Vol] 321 ng/dL Normal 264-916 [facility] Comment on above: Result Comment: Adul t male reference interval is based on a population of healthy nonobese males (BMI <30) between 19 and 39 years old. Leticia, et.al. JCEM 2017,102;2231-4982. PMID: [id number]. Performed By: #### T ESTTOT #### [facility] [address] [place] [address] Dr. Juan Alberto Carranza TESTOSTERONE, TOTALon 2021 Testosterone [Mass/Vol] 360 ng/dL Normal 264-916 [facility] Comment on above: Result Comment: Adul t male reference interval is based on a population of healthy nonobese males (BMI <30) between 19 and 39 years old. Leticia, et.al. EM 2017,102;[id number]. PMID: [id number]. Performed By: #### T ESTTOT ####[facility] [address] [address]Dr. Juan Alberto Carranza CBC AUTO DIFFon 07-13-2021 BASO # 0.0 103/ul Normal 0.0-0.1 [facility] Comment on above: Performed By: #### C BC #### [facility] [address] [place] [address] Dr. Juan Alberto Carranza Basophils/100 WBC (Bld) 0.5 % Normal 0.2-2.0 [facility] Comment on above: Performed By: #### C BC #### [facility] [address] [place] [address] Dr. Juan Alberto Carranza EO # 0.1 103/ul Normal 0.0-0.7 [facility] Comment on above: Performed By: #### C BC #### [facility] [address] [place] [address] Dr. Juan Alberto Carranza Eosinophils/100 WBC (Bld) 1.8 % Normal 0.9-7.0 [facility] Comment on above: Performed By: #### C BC #### [facility] [address] [place] [address] Dr. Juan Alberto Carranza Erythrocyte distribution width (RBC) [Ratio] 13.5 % Normal 11.0-15.0 [facility] Comment on above: Performed By: #### C BC #### [facility] [address] [place] [address] Dr. Juan Alberto Carranza Hematocrit (Bld) [Volume fraction] 40.4 % Critically low 42.0-54.0 [facility] Comment on above: Performed By: #### C BC #### [facility] [address] [place] [address] Dr. Juan Alberto Carranza Hemoglobin (Bld) [Mass/Vol] 13.9 g/dL Critically low 14.0-18.0 [facility] Comment on above: Performed By: #### C BC #### [facility] [address] [place] [address] Dr. Juan Alberto Carranza IG # 0.01 10e3/ul Normal 0.00-0.03 [facility] Comment on above: Performed By: #### C BC #### [facility] [address] [place] [address] Dr. Juan Alberto Carranza IG % 0.2 % Normal 0.0-0.5 [facility] Comment on above: Performed By: #### C BC #### [facility] [address] [place] [address] Dr. Juan Alberto Carranza LYMPH # 0.9 103/ul Critically low 1.2-3.8 [facility] Comment on above: Performed By: #### C BC #### [facility] [address] [place] [address] Dr. Juan Alberto Carranza Lymphocytes/100 WBC (Bld) 20.5 % Normal 20.5-60.0 [facility] Comment on above: Performed By: #### C BC #### [facility] [address] [place] [address] Dr. Juan Alberto Carranza MANUAL DIFF REQ NO Normal [facility] Comment on above: Performed By: #### C BC #### [facility] [address] [place] [address] Dr. Juan Albetro Carranza MCH (RBC) [Entitic mass] 32.3 pg Normal 25.9-34.0 [facility] Comment on above: Performed By: #### C BC #### [facility] [address] [place] [address] Dr. Juan Alberto Carranza MCHC (RBC) [Mass/Vol] 34.4 g/dL Normal 29.9-35.2 [facility] Comment on above: Performed By: #### C BC #### [facility] [address] [place] [address] Dr. Juan Alberto Carranza MCV (RBC) [Entitic vol] 93.7 fL Normal 80.0-94.0 [facility] Comment on above: Performed By: #### C BC #### [facility] [address] [place] [address] Dr. Juan Alberto Carranza MONO # 0.3 103/ul Normal 0.3-0.8 [facility] Comment on above: Performed By: #### C BC #### [facility] [address] [place] [address] Dr. Juan Alberto Carranza Monocytes/100 WBC (Bld) 7.0 % Normal 1.7-12.0 [facility] Comment on above: Performed By: #### C BC #### [facility] [address] [place] [address] Dr. Juan Alberto Carranza NEUT # 3.1 103/ul Normal 1.4-6.5 [facility] Comment on above: Performed By: #### C BC #### [facility] [address] [place] [address] Dr. Juan Alberto Carranza Neutrophils/100 WBC (Bld) 70.0 % Normal 43.0-75.0 [facility] Comment on above: Performed By: #### C BC #### [facility] [address] [place] [address] Dr. Juan Alberto Carranza Platelet mean volume (Bld) [Entitic vol] 11.3 fL Normal 9.5-13.5 [facility] Comment on above: Performed By: #### C BC #### [facility] [address] [place] [address] Dr. Juan Alberto Carranza PLT 141 103/ul Critically low 150-450 [facility] Comment on above: Performed By: #### C BC #### [facility] [address] [address] [address] Juan Alberto Carranza RBC 4.31 106/ul Critically low 4.70-6.10 [facility] Comment on above: Performed By: #### C BC #### [facility] [address] [address] [address] Juan Alberto Carranza WBC 4.4 103/ul Normal 4.0-11.0 [facility] Comment on above: Performed By: #### C BC #### [facility] [address] [address] [address] Juan Alberto Carranza LIPID PROFILEon 07-13-2021 CHOL-HDL RATIO NORM SEE BELOW Normal [facility] Comment on above: Result Comment: 3.3 - 4.4 LOW RISK 4.4 - 7.1 AVERAGE RISK 7.1 - 11.0 MODERATE RISK >11.0 HIGH RISK Performed By: #### L IPID #### [facility] [address] [place] [address] Dr. Juan Alberto Carranza Cholesterol [Mass/Vol] 139 mg/dL Normal <=200 [facility] Comment on above: Performed By: #### L IPID #### [facility] [address] [place] [address] Dr. Juan Alberto Carranza Cholesterol in HDL [Mass/Vol] 72 mg/dL Normal [facility] Comment on above: Performed By: #### L IPID #### [facility] [address] [address] [address] Juan Alberto Carranza Cholesterol in LDL [Mass/Vol] 62.4 mg/dL Normal [facility] Comment on above: Performed By: #### L IPID #### [facility] [address] [address] [address] Juan Alberto Carranza Cholesterol.total/Ch olesterol in HDL [Mass ratio] 1.9 {ratio} Normal [facility] Comment on above: Performed By: #### L IPID #### [facility] [address] [address] [address] Juan Alberto Carranza HDL NORMAL > or = 60 mg/dl - LO W CARDIOVASCULAR RISK <40 mg/dl - HIGH CARDIOVASCULAR RISK Normal [facility] Comment on above: Performed By: #### L IPID #### [facility] [address] [address] [address] Juan Alberto Carranza LDL CALC NORMAL SEE BELOW Normal [facility] Comment on above: Result Comment: <100 mg/dl OPTIMAL 100 - 129 mg/dl NEAR OR ABOVE OPTIMAL 130 - 159 mg/dl BORDERLINE HIGH 160 - 189 mg/dl HIGH >190 mg/dl VERY HIGH Performed By: #### L IPID #### [facility] [address] [address] [address] Juan Alberto Carranza Triglyceride [Mass/Vol] 23 mg/dL Normal <=150 [facility] Comment on above: Performed By: #### L IPID #### [facility] [address] [place] [address] Dr. Juan Alberto Carranza VLDL CALC 4.6 mg/dL Normal [facility] Comment on above: Performed By: #### L IPID #### [facility] [address] [place] [address] Dr. Juan Alberto Carranza PROF 14(COMP METB)on 022 Albumin [Mass/Vol] 4.0 g/dL Normal 3.5-5.0 [facility] Comment on above: Performed By: #### C MP #### [facility] [address] [place] [address] Dr. Juan Alberto Carranza Albumin/Globulin [Mass ratio] 1.3 {ratio} Normal [facility] Comment on above: Performed By: #### C MP #### [facility] [address] [address] [address] Juan Alberto Carranza ALP [Catalytic activity/Vol] 60 U/L Normal 38-126 [facility] Comment on above: Performed By: #### C MP #### [facility] [address] [address] [address] Juan Alberto Carranza ALT [Catalytic activity/Vol] 22 U/L Normal 21-72 [facility] Comment on above: Performed By: #### C MP #### [facility] [address] [address] [address] Juan Alberto Carranza Anion gap [Moles/Vol] 9.4 mmol/L Normal [facility] Comment on above: Performed By: #### C MP #### [facility] [address] [address] [address] Juan Alberto Carranza AST [Catalytic activity/Vol] 12 U/L Critically low 17-59 [facility] Comment on above: Performed By: #### C MP #### [facility] [address] [address] [address] Juan Alberto Carranza Bilirubin [Mass/Vol] 0.6 mg/dL Normal 0.2-1.3 [facility] Comment on above: Performed By: #### C MP #### [facility] [address] [address] [address] Juan Alberto Carranza Calcium [Mass/Vol] 8.9 mg/dL Normal 8.4-10.2 [facility] Comment on above: Performed By: #### C MP #### [facility] [address] [address] [address] Juan Alberto Carranza Chloride [Moles/Vol] 103 mmol/L Normal 98-107 [facility] Comment on above: Performed By: #### C MP #### [facility] [address] [address] [address] Juan Alberto Carranza CO2 [Moles/Vol] 28.8 mmol/L Normal 22.0-30.0 [facility] Comment on above: Performed By: #### C MP #### [facility] [address] [address] [address] Juan Alberto Carranza Creatinine [Mass/Vol] 0.83 mg/dL Normal 0.66-1.25 [facility] Comment on above: Performed By: #### C MP #### [facility] [address] [address] [address] Juan Alberto Carranza EGFR-AF MACANESE >60 Normal >=60 [facility] Comment on above: Performed By: #### C MP #### [facility] [address] [place] [address] Dr. Juan Alberto Carranza EGFR-NON AF MACANESE >60 Normal >=60 [facility] Comment on above: Performed By: #### C MP #### [facility] [address] [place] [address] Dr. Juan Alberto Carranza Globulin (S) [Mass/Vol] 3.2 g/dL Normal [facility] Comment on above: Performed By: #### C MP #### [facility] [address] [address] [address] Juan Alberto Carranza Glucose [Mass/Vol] 135 mg/dL Critically high 74-106 [facility] Comment on above: Performed By: #### C MP #### [facility] [address] [place] [address] Dr. Juan Alberto Carranza Potassium [Moles/Vol] 5.2 mmol/L Critically high 3.4-5.0 [facility] Comment on above: Performed By: #### C MP #### [facility] [address] [place] [address] Dr. Juan Alberto Carranza Protein [Mass/Vol] 7.2 g/dL Normal 6.1-8.2 [facility] Comment on above: Performed By: #### C MP #### [facility] [address] [place] [address] Dr. Juan Alberto Carranza Sodium [Moles/Vol] 136 mmol/L Critically low 137-145 [facility] Comment on above: Performed By: #### C MP #### [facility] [address] [place] [address] Dr. Juan Alberto Carranza Urea nitrogen [Mass/Vol] 17.0 mg/dL Normal 9.0-20.0 [facility] Comment on above: Performed By: #### C MP #### [facility] [address] [place] [address] Dr. Juan Alberto Carranza Urea nitrogen/Creatinine [Mass ratio] 20.5 mg/mg Normal [facility] Comment on above: Performed By: #### C MP #### [facility] [address] [place] [address] Dr. Juan Alberto Carranza SED RATE [facility] 2021 SED RATE 2 mm/hr Normal <=20 [facility] Comment on above: Performed By: #### S EDR #### [facility] [address] [place], [place] [address] Dr. Juan Alberto Carranza Office Visit (Cardiology)on [...] Weight Tips; Status:Complete - Retrospective Authorization; Done: [id number] SocHx: Former smoker Tobacco Use Screening; Status:Complete; Done: [id number] Patient Instructions By signing my name below, 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 with previous [employer] the right SFA 2008 4. Hyperlipidemia, on statin therapy, under control. Lipid profile was requested from PCP 5. Overweight. Weight has dropped 15 pounds from last year which is encouraging 6. Hypertension, presently under control. 7. Diabetes, under control., Lab data from PCP were requested Jade Gale MD, [facility] Current Meds Medication NameInstruction Aspirin 81 [...] negative for complaint. Vitals Vital Signs Recorded: [id number] 03:40PM Heart Rate80, R Radial Dbgfgjkq573, RUE, Sitting Bxgscbzrj11, RUE, Sitting Height6 ft 2 in Augwla850 lb 9.6 oz BMI Hfkrmlvquz69.61 kg/m2 BSA Calculated2.31 Tobacco Useb) No Fall [...] by:VENICE Maeigned by:Jair Olivia MD07/06/17inal result Normal [facility] Vital Signs Date Time Vital Sign Value Performing Clinician Facility 03-22-2024 10:51-0500 Body height 185.42 cm [facility] 03-22-2024 10:51-0500 Body mass index (BMI) [Ratio] 30 kg/m2 [facility] 03-22-2024 10:51-0500 Body weight 103.41 kg [facility] 03-22-2024 10:51-0500 Diastolic blood pressure 61 mm[Hg] [facility] 03-22-2024 10:51-0500 Heart rate 67 /min [facility] 03-22-2024 10:51-0500 SaO2% (BldA) [Mass fraction] 98 % [facility] 03-22-2024 10:51-0500 Systolic blood pressure 112 mm[Hg] [facility] 03-22-2024 08:42-0500 Body height 185.4 cm Jade Gale MD Work Phone: [facility] 03-22-2024 08:42-0500 Body mass index (BMI) [Ratio] 29.95 kg/m2 Jade Gale MD Work Phone: [facility] 03-22-2024 08:42-0500 Body weight 102.97 kg Jade Gale MD Work Phone: [facility] 03-22-2024 08:42-0500 Diastolic blood pressure 50 mm[Hg] Jade Gale MD Work Phone: [facility] 03-22-2024 08:42-0500 Heart rate 64 /min Jade Gale MD Work Phone: [facility] 03-22-2024 08:42-0500 Systolic blood pressure 100 mm[Hg] Jade Gale MD Work Phone: [facility] 06-25-2023 09:55-0500 Body mass index (BMI) [Ratio] 29.34 kg/m2 Josh Bermudezjenny Work Phone: [facility] 06-25-2023 09:55-0500 Body weight 100.88 kg Joshjose r Bermudezjenny Work Phone: [facility] 06-18-2023 08:39-0500 Body height 185.4 cm Jade Gale MD Work Phone: [facility] 06-18-2023 08:39-0500 Body mass index (BMI) [Ratio] 29.82 kg/m2 Jade Gale MD Work Phone: [facility] 06-18-2023 08:39-0500 Body weight 102.51 kg Jade Gale MD Work Phone: [facility] 06-18-2023 08:39-0500 Diastolic blood pressure 76 mm[Hg] Jade Gale MD Work Phone: [facility] 06-18-2023 08:39-0500 Heart rate 62 /min Jade Gale MD Work Phone: [facility] 06-18-2023 08:39-0500 Systolic blood pressure 130 mm[Hg] Jade Gale MD Work Phone: [facility] 03-27-2022 16:00-0500 Body height Aryan Garcia Other [employer] Other 03-27-2022 16:00-0500 Body mass index (BMI) [Ratio] 29.81 kg/m2 Aryan Garcia Other [employer] Other 03-27-2022 16:00-0500 Body temperature 96.9 [degF] Aryan Garcia Other [employer] Other 03-27-2022 16:00-0500 Body weight 102.51 kg Aryan Garcia Other [employer] Other 03-27-2022 16:00-0500 Diastolic blood pressure 70 mm[Hg] Aryan Garcia Other [employer] Other 03-27-2022 16:00-0500 SaO2% (BldA) [Mass fraction] 100 % Aryan Garcia Other [employer] Other 03-27-2022 16:00-0500 Systolic blood pressure 128 mm[Hg] Aryan Garcia Other [employer] Other Encounters Encounter Date Encounter Type Care Provider Facility Start: 05-02-2024 ambulatory Shady Hoff ty:IN[facility] Start: 04-04-2024 End: 04-04-2024 ambulatory Shady MOHAN Facility:[facility] Start: 03-22-2024 End: 03-22-2024 ambulatory [facility] Work Phone: Start: 03-22-2024 End: 03-22-2024 Patient encounter procedure [facility] Work Phone: Start: 03-22-2024 End: 03-22-2024 Office outpatient visit 25 minutes Jade Gale MD Work Phone: [facility] Comment on above: ASCVD (arteriosclero tic cardiovascular disease) (Primary Dx); Peripheral vascular disease ([facility]); Essential hypertension; Hyperlipidemia, unspecified hyperlipidemia type; Other specified diabetes mellitus without complication, without long-term current use of insulin; Obstructive sleep apnea syndrome; Former smoker; BMI 29.0-29.9,adult; Diabetes mellitus type II, non insulin dependent (Multi) Start: 03-22-2024 End: 03-22-2024 ambulatory JADE Holley [facility] Start: 03-08-2024 End: 03-08-2024 ambulatory Shady MOHAN Facility:[facility] Start: 02-29-2024 End: 02-29-2024 Orders Only Josh Sanchez Janell DO Work Phone: [facility] Comment on above: Normocytic normochro alma anemia (Primary Dx); Type 2 diabetes mellitus with diabetic polyneuropathy, without long-term current use of insulin [place] Essential hypertension Start: 02-08-2024 End: 02-08-2024 ambulatory Shady MOHAN Facility:[facility] Start: 01-12-2024 End: 01-12-2024 ambulatory Josseline Kerr Facility:[facility] Start: 12-28-2023 End: 12-28-2023 ambulatory Shady MOHAN Facility:[facility] Start: 12-28-2023 End: 12-28-2023 ambulatory Shady MOHAN Facility:[facility] Start: 11-02-2023 End: 11-02-2023 ambulatory Shady MOHAN Facility:[facility] Start: 07-02-2023 Refill Kenzie Zaman [facility] Comment on above: Type 2 diabetes gordy itus with diabetic polyneuropathy, without long-term current use of insulin ([facility]) (Primary Dx) Start: 07-01-2023 Refill Belkys Angelique FIBER PICKER Liyah albaa [facility] Comment on above: Type 2 diabetes gordy itus with diabetic polyneuropathy, without long-term current use of insulin (CMS-HCC) (Primary Dx) Start: 06-29-2023 Refill Belkys Angelique FIB[employer] P[employer] Liyah watts [facility] Start: 06-26-2023 Orders Only [facility]obedo DO [facility] Start: 06-25-2023 End: 06-25-2023 ambulatory [facility] Start: 06-25-2023 End: 06-25-2023 Office outpatient visit 25 minutes Josh Ospina DO [facility] Comment on above: Type 2 diabetes gordy itus with diabetic polyneuropathy, without long-term current use of insulin (CMS-HCC) (Primary Dx); Normocytic normochromic anemia; Peripheral vascular disease (CMS-HCC); Thrombocytopenia (CMS-HCC) Start: 06-23-2023 Refill Belkys Angelique [employer] P[employer] Liyah watts [facility] Start: 06-18-2023 End: 06-18-2023 Office outpatient visit 25 minutes Jade Gale MD Work Phone: [facility] Comment on above: ASCVD (arteriosclero tic cardiovascular disease) (Primary Dx); Peripheral vascular disease (CMS/HCC); Essential hypertension; Hyperlipidemia, unspecified hyperlipidemia type; Other specified diabetes mellitus without complication, without long-term current use of insulin (CMS/HCC); Former smoker; Overweight Start: 06-18-2023 End: 06-18-2023 ambulatory JADE GALE [facility] Start: 05-04-2023 End: 05-04-2023 ambulatory [facility] Start: 03-17-2023 End: 03-17-2023 ambulatory Shanice Bailey Facility:[facility] Start: 01-05-[address] Jade Gale Facility:[id number] Start: 10-08-2022 Office outpatient vi sit 25 minutes Josh Daileygregg Work Phone: [facility] Work Phone: Start: 08-20-2022 Rx Renewal Josh Sanchez Lararinku ng Work Phone: [facility] 250 DO Work Phone: Start: 04-26-2022 End: 04-27-[address] JOSH OSPINA Facility:[facility] Start: 03-27-2022 End: 03-27-2022 Patient encounter procedure DO Josh Ospina Work Phone: [facility] Start: 03-27-2022 End: 03-27-2022 ambulatory DO Josh Ospina Work Phone: [facility] Work Phone: Start: 03-27-2022 Office outpatient vi sit 25 minutes Aryan [facility] Start: 02-04-[address] Jade Gale Facility:[id number] Start: 01-10-2022 End: 01-11-[address] JOSH OSPINA Facility:[facility] Start: 12-03-2021 Rx Renewal Josh Dailey ng Work Phone: [facility] 250 DO Work Phone: Start: 11-26-2021 Rx Renewal Josh Dailey ng Work Phone: [facility] 250 DO Work Phone: Start: 11-19-2021 Rx Renewal [facility]iley ng [facility] DO Work Phone: Start: 10-26-2021 End: 10-27-[address] JOSH OSPINA Facility:[facility] Start: 07-24-2021 End: 07-25-[address] SHANICE BAILEY Facility:[facility] Start: 07-13-2021 End: 07-14-[address] SHANICE BAILEY Facility:[facility] Start: 06-04-[address] JOSH OSPINA Femi ility:[facility] Start: 04-23-2021 ambulatory Josh Willy Bermudezjenny Sunday acility: Start: 07-06-2017 End: 07-09-2017 Ambulatory [facility] Procedures Date Procedure Procedure Detail [...] Adult depression scr eening assessment Belkys Angelique FIBER PICKER Start: 05-04-2023 Microalbumin [Mass/v olume] in Urine by Test strip Belkys Angelique F[employer] PICKER Start: 05-13-2022 Diabetic retinal eye exam Belkys Angelique [employer] P[employer] Start: 04-26-[address] PINO MOHAN Comment on above: Performed By: #### P SAD #### [facility] [address] [place] [address] Dr. Juan Alberto Carranza Start: 07-06-2017 Mri [...] colon Colon Cancer Screening 5 Year Sigmoidoscopy [facility] Comment on above: Postponed from 10/19/2000 (Not Indicated ) Start: 12-27-2024 End: 12-27-2024 Patient encounter procedure 12/27/2024 8:50 AM EDT Office Visit [facility] [address] [place] [address] Jade Gale MD [address] [place] [address] [facility] Start: 07-04-2024 DTaP,Tdap and Td Vaccines (2 - Td or Tdap) DTaP,Tdap and Td Vaccines (2 - Td or Tdap) [facility] Start: 07-04-2024 DTaP/Tdap/Td Vaccines (2 - Td or Tdap) DTaP/Tdap/Td Vaccines (2 - Td or Tdap) [facility] Start: 06-25-2024 Adult BMI Screening Adult BMI Screening [facility] Start: 06-25-2024 Depression Screening Depression Screening [facility] Start: 06-25-2024 Fall Risk Screening Fall Risk Screening [facility] Start: 06-25-2024 Tobacco Screening Tobacco Screening [facility] Start: 05-04-2024 Adult BMI Screening Adult BMI Screening [facility] Start: 05-04-2024 Depression Screening Depression Screening [facility] Start: 05-04-2024 Diabetic foot examination Diabetic Foot Exam [facility] Start: 05-04-2024 Fall Risk Screening Fall Risk Screening [facility] Start: 05-04-2024 Tobacco Screening Tobacco Screening [facility] Start: 05-04-2024 Urine screening for protein [facility] Start: 05-02-2024 End: 05-02-2024 Patient encounter procedure 05/02/2024 9:30 AM EST Office Visit [facility] [address] [place] [address] Josh Ospina, [address], [address] [place] [address] [facility] Start: 04-07-2024 Screening for malignant neoplasm of colon [facility] Start: 03-22-2024 End: 03-22-2025 Alanine aminotransferase [Enzymatic activity/volume] in Serum or Plasma by With P-5'-P Alanine Aminotransferase Lab Routine ASCVD (arteriosclerotic cardiovascular disease) Hyperlipidemia, unspecified hyperlipidemia type Expected: 03/22/2024 (Approximate), Expires: 03/22/2025 [facility] Service Area Work Phone: Comment on above: Expected: 03/22/2024 (Approximate), Expi res: 03/22/2025 Start: 03-22-2024 End: 03-22-2025 Aspartate aminotransferase [Enzymatic activity/volume] in Serum or Plasma by With P-5'-P Aspartate Aminotransferase Lab Routine ASCVD (arteriosclerotic cardiovascular disease) Hyperlipidemia, unspecified hyperlipidemia type Expected: 03/22/2024 (Approximate), Expires: 03/22/2025 [facility] Work Phone: Comment on above: Expected: 03/22/2024 (Approximate), Expi res: 03/22/2025 Start: 03-22-2024 End: 03-22-2025 Basic metabolic 2000 panel - Serum or Plasma Basic Metabolic Panel Lab Routine ASCVD (arteriosclerotic cardiovascular disease) Essential hypertension Expected: 03/22/2024 (Approximate), Expires: 03/22/2025 [facility] Work Phone: Comment on above: Expected: 03/22/2024 (Approximate), Expi res: 03/22/2025 Start: 03-22-2024 End: 03-22-2025 CBC panel - Blood by Automated count CBC Lab Routine ASCVD (arteriosclerotic cardiovascular disease) Expected: 03/22/2024 (Approximate), Expires: 03/22/2025 [facility] Work Phone: Comment on above: Expected: 03/22/2024 (Approximate), Expi res: 03/22/2025 Start: 03-22-2024 End: 03-22-2025 Lipid 1996 panel - Serum or Plasma Lipid Panel Lab Routine ASCVD (arteriosclerotic cardiovascular disease) Hyperlipidemia, unspecified hyperlipidemia type Expected: 03/22/2024 (Approximate), Expires: 03/22/2025 [facility] Work Phone: Comment on above: Expected: 03/22/2024 (Approximate), Expi res: 03/22/2025 Start: 03-22-2024 End: 03-22-2024 Patient encounter procedure 03/22/2024 8:40 AM EST Office Visit [facility] [address] [facility] [address] [place] [id number] Jade Gale MD [address] [facility] [address], [facility] [address] [place] [address] [facility] Start: 01-17-2024 COVID-19 Vaccine ( season) COVID-19 Vaccine ( season) [facility] Start: 01-17-2024 COVID-19 Vaccine ( season) COVID-19 Vaccine ( season) [facility] Start: 01-17-2024 Influenza vaccination Influenza Vaccine [facility] Start: 09-18-2023 Medicare Annual Wellness Visit Medicare Annual Wellness Visit [facility] Start: 06-25-2023 End: 06-25-2023 Patient encounter procedure 06/25/2023 10:00 AM EST Office Visit [facility] [address] [place] [address] Josh Ospina, DO [address] [facility], [place] [address] [facility] Start: 06-18-2023 End: 06-18-2024 Alanine aminotransferase [Enzymatic activity/volume] in Serum or Plasma by With P-5'-P Alanine Aminotransferase Lab Routine ASCVD (arteriosclerotic cardiovascular disease) Peripheral vascular disease (CMS/HCC) Essential hypertension Hyperlipidemia, unspecified hyperlipidemia type Other specified diabetes mellitus without complication, without long-term current use of insulin (CMS/HCC) Expected: 06/18/2023 (Approximate), Expires: 06/18/2024 [facility] Service Area Work Phone: Comment on above: [...] insulin (CMS/HCC) Expected: 06/18/2023 (Approximate), Expires: 06/18/2024 [facility] Work Phone: Comment on above: Expected: 06/18/2023 (Approximate), Expi res: 06/18/2024 Start: 06-18-2023 End: 06-18-2024 Basic metabolic 2000 panel - Serum or Plasma Basic Metabolic Panel Lab Routine ASCVD (arteriosclerotic cardiovascular disease) Peripheral vascular disease (CMS/HCC) Essential hypertension Hyperlipidemia, unspecified hyperlipidemia type Other specified diabetes mellitus without complication, without long-term current use of insulin (CMS/HCC) Expected: 06/18/2023 (Approximate), Expires: 06/18/2024 [facility] Work Phone: Comment on above: Expected: 06/18/2023 (Approximate), Expi res: 06/18/2024 Start: 06-18-2023 End: 06-18-2024 CBC panel - Blood by Automated count CBC Lab Routine ASCVD (arteriosclerotic cardiovascular disease) Peripheral vascular disease (CMS/HCC) Essential hypertension Hyperlipidemia, unspecified hyperlipidemia type Other specified diabetes mellitus without complication, without long-term current use of insulin (CMS/HCC) Expected: 06/18/2023 (Approximate), Expires: 06/18/2024 [facility] Work Phone: Comment on above: Expected: 06/18/2023 (Approximate), Expi res: 06/18/2024 Start: 06-18-2023 End: 06-18-2024 Lipid 1996 panel - Serum or Plasma Lipid Panel Lab Routine ASCVD (arteriosclerotic cardiovascular disease) Peripheral vascular disease (CMS/HCC) Essential hypertension Hyperlipidemia, unspecified hyperlipidemia type Other specified diabetes mellitus without complication, without long-term current use of insulin (CMS/HCC) Expected: 06/18/2023 (Approximate), Expires: 06/18/2024 [facility] Work Phone: Comment on above: Expected: 06/18/2023 (Approximate), Expi res: 06/18/2024 Start: 06-18-2023 FUV, Provider: Jade Gale, Status: Pen, Time: 9:00 AM FUV, Provider: Jade Gale, Status: Pen, Time: 9:00 AM [facility] Work Phone: Start: 05-13-2023 Glaucoma screening [facility] Start: 01-16-2023 COVID-19 Vaccine ( season) COVID-19 Vaccine () [facility] Start: 01-16-2023 COVID-19 Vaccine () COVID-19 Vaccine () [facility] Start: 01-16-2023 COVID-19 Vaccine () COVID-19 Vaccine () [facility] Start: 01-05-2023 AOILIVC, Provider: CECILIA CAMPBELL ULTRASOUND 01,[id number], Status: Pen, Time: 7:45 AM AOILIVC, Provider: CECILIA MICHAELI ULTRASOUND 01,[id number], Status: Pen, Time: 7:45 AM [facility] Work Phone: Start: 10-08-2022 FUV, Provider: Jade Gale, Status: Pen, Time: 8:40 AM FUV, Provider: Jade Gale, Status: Pen, Time: 8:40 AM [facility] Work [facility]: Start: 02-04-2022 FUV, Provider: Jade Gale, Status: Pen, Time: 8:30 AM FUV, Provider: Jade Gale, Status: Pen, Time: 8:30 AM [facility] Work Phone: Start: 2015 RSV High Risk: (Elderly (60+) or Population) (1 - Risk 60-74 years 1-dose series) RSV High Risk: (Elderly (60+) or Population) (1 - Risk 60-74 years 1-dose series) [facility] Start: 10-19-2000 Screening for malignant neoplasm of colon Colon Cancer Screening 5 Year [facility] Start: 10-19-1973 Adult BMI Follow Up Plan Adult BMI Follow Up Plan [facility] Start: 10-19-1973 Hepatitis C screening Hepatitis C Screening [facility] Start: 10-19-1965 Diabetic foot examination Diabetes: Foot Exam [facility] Start: 10-19-1965 Glaucoma screening Diabetes: Retinopathy Screening [facility] Start: 1955 Hemoglobin A1c measurement Diabetes: Hemoglobin A1C [facility] Start: 1955 Lipid panel Lipid Panel [facility] Start: 1955 Medicare Annual Wellness Visit Medicare Annual Wellness Visit (AWV) [facility] Start: 1955 Screening for malignant neoplasm of colon [facility] End: 02-28-2025 Basic metabolic 2000 panel - Serum or Plasma Basic Metabolic Panel Lab Routine Essential hypertension 1 Occurrences starting 02/29/2024 until 02/28/2025 [employer] [facility] Comment on above: 1 Occurrences starting 02/29/2024 until 02/28/2025 End: 02-28-2025 CBC panel - Blood by Automated count CBC Lab Routine Normocytic normochromic anemia 1 Occurrences starting 02/29/2024 until 02/28/2025 [facility]: 1 Occurrences starting 02/29/2024 until 02/28/2025 End: 02-28-2025 Hemoglobin A1c/Hemoglobin.total in Blood Hemoglobin A1c Lab Routine Type 2 diabetes mellitus with diabetic polyneuropathy, without long-term current use of insulin [place] 1 Occurrences starting 02/29/2024 until 02/28/2025 [employer] Work Phone: Comment on above: 1 Occurrences starting 02/29/2024 until 02/28/2025 Immunizations Immunization Date Immunization Notes Care Provider Rahel rice 02-05-2023 Influenza, High-dose , Quadrivalent [facility] 02-05-2023 influenza virus vacc ine, unspecified formulation Josh Ospina DO Work Phone: [facility] [employer] [facility] 04-14-2022 pneumococcal conjuga te vaccine, 13 valent [facility] [employer] [facility] 04-14-2022 Prevnar 20 0.5 ML Intramuscular Suspension Prefilled Syringe Josh Ospina Work Phone: [facility] Work Phone: 02-18-2021 Pfizer-BioNTech COVI D-19 Vacc 30 MCG/0.3ML Intramuscular Suspension Josh Ospina Work Phone: [facility] 08-08-2020 Pfizer-BioNTech COVI D-19 Vacc 30 MCG/0.3ML Intramuscular Suspension Josh Daileyng Work Phone: [facility] [address] DO Work Phone: 08-05-2020 Pfizer Purple Cap SARS-CoV-2 Jade Gale MD Work Phone: [facility] Work Phone: 07-18-2020 Moderna COVID-19 Vac cine 100 MCG/0.5ML Intramuscular Suspension [facility] Work Phone: 07-18-2020 S[employer] COVI D-19 Vacc 30 MCG/0.3ML Intramuscular Suspension Josh Bermudezng [facility] Phone: [facility] Work Phone: 07-16-2020 COVID-19, mRNA, LNP- S, PF, 30mcg/0.3mL Dose [facility] 05-08-2020 pneumococcal polysaccharide vaccine, 23 valent Josh Sanchez Entelos Work Phone: [facility] 02-16-2020 influenza virus vacc ine, unspecified formulation Josh Sanchez [employer] Work Phone: [facility] [employer] DO Work Phone: 02-16-2020 influenza, injectabl e, quadrivalent, preservative free Jade Gale MD Work Phone: [facility] Work Phone: 02-16-2020 influenza, seasonal, injectable [facility] 06-29-2019 zoster vaccine recombinant Josh Sanchez Entelos Work Phone: [facility] [employer] DO Work Phone: 04-28-2019 zoster vaccine recombinant Josh Sanchez [employer] [place] Work Phone: [facility] [employer] DO Work Phone: 03-18-2019 influenza virus vacc ine, unspecified formulation Josh Sanchez [employer] [place] Work Phone: [facility] [employer] DO Work Phone: 03-18-2019 influenza, seasonal, injectable [facility] 03-02-2019 influenza, injectabl e, quadrivalent, contains preservative Josh G [employer] Work Phone: [place] [address] DO Work Phone: 04-13-2018 Influenza, injectabl e, Madin Myla Canine Kidney, preservative free, quadrivalent Josh G [place] Work Phone: [place] [address] DO Work Phone: 03-18-2018 influenza virus vacc ine, unspecified formulation Josh G [place] Work Phone: [place] [address] DO Work Phone: 04-20-2017 influenza, injectabl e, quadrivalent, preservative free Josh G [place] Work Phone: [place] [address] DO Work Phone: 03-31-2017 influenza, injectabl e, quadrivalent, preservative free Josh G [place] Work Phone: [place] [address] DO Work Phone: 03-26-2017 influenza virus vacc ine, unspecified formulation [facility] 03-18-2017 influenza virus vacc ine, unspecified formulation Josh G [place] Work Phone: [place] [address] DO Work Phone: 02-16-2016 influenza virus vacc ine, unspecified formulation Josh G [place] Work Phone: [place] [address] DO Work Phone: 03-18-2015 influenza, seasonal, injectable Josh G [place] Work Phone: [place] [address] DO Work Phone: 02-15-2015 influenza virus vacc ine, unspecified formulation Josh G [place] Work Phone: [place] [address] DO Work Phone: 07-04-2014 pneumococcal conjuga te vaccine, 13 valent Josh Bermudezng Work Phone: [place] [address] DO Work Phone: 07-04-2014 tetanus toxoid, redu leonel diphtheria toxoid, and acellular pertussis vaccine, adsorbed Josh Sanchez [employer] Work Phone: [place] [address] DO Work Phone: 02-22-2014 influenza virus vacc ine, whole virus Josh Bermudezng Work Phone: [place] [address] DO Work Phone: 07-18-2013 influenza virus vacc ine, unspecified formulation Josh [employer] [place] Work Phone: [place] [address] DO Work Phone: 05-18-2011 influenza virus vacc ine, unspecified formulation [facility] 03-18-2011 influenza virus vacc ine, unspecified formulation [facility] 05-18-2009 influenza virus vacc ine, unspecified formulation [facility] 03-18-2009 influenza virus vacc ine, unspecified formulation Josh Bermudezng Work Phone: [place] [address] DO Work Phone: influenza virus vacc ine, unspecified formulation Josh Bermudezng Work Phone: [place] [address] DO Work Phone: Comment on above: [id number] [id number] Payers Date Payer Category Payer Self-pay [id number] 2022 Unknown 2020 Medicare [id number] 2020 Medicare [id number] 1959 Medicare [id number] 1959 Self-pay [id number] 1959 Unknown [id number] 1955 Unknown [id number] 2.16. [id number] 1955 Unknown [id number] 2.16. 840.1.147595.3.579.2.356 1955 Unknown [id number] 2.16.84 0.1.403260.3.579.2.593 1955 Unknown [id number] 2.16.84 0.1.714088.3.579.2.593 1955 Unknown [id number] 2.16.84 0.1.654807.3.579.2.593 1955 Unknown [id number] 2.16.84 0.1.049230.3.579.2.593 1955 Unknown [id number] 2.16.84 0.1.423868.3.579.2.593 1955 Unknown [id number] 2.16.84 0.1.428564.3.579.2.593 1955 Unknown [id number] 2.16.84 0.1.830122.3.579.2.593 1955 Unknown [id number] 2.16.84 0.1.322351.3.579.2.593 1955 Unknown [id number] 2.16.8 40.1.183157.3.579.2.1068 1955 Unknown [id number] 2.16.8 40.1.388854.3.579.2.1286 1955 Unknown [id number] 2.16.840 .1.231096.3.579.2.1286 1955 Unknown [id number] 2.16.8 40.1.913893.3.579.2.727 1955 Unknown [id number] 2.16.8 40.1.451355.3.579.2.727 1955 Unknown [id number] 2.16.8 40.1.123977.3.579.2.727 1955 Unknown [id number] 2.16.8 40.1.785030.3.579.2.727 1955 Unknown [id number] 2.16.8 40.1.447823.3.579.2.727 1955 Unknown [id number] 2.16. 840.1.980073.3.579.2.1244 1955 Unknown [id number] 2.16.8 40.1.446726.3.579.2.1244 1955 Unknown [id number] 2.16.8 40.1.694797.3.579.2.727 1955 Unknown [id number] 2.16.8 40.1.083165.3.579.2.727 1955 Unknown [id number] 2.16.8 40.1.470817.3.579.2.727 Unknown [id number] 2.16.8 40.1.660352.3.579.2.531 Unknown [id number] 2.16.8 40.1.950208.3.579.2.531 Social History Date Type Detail Facility Start: 05-26-2023 End: 03-22-2024 Alcohol use Alcohol use -[facility] [address] DO Work Phone: Comment on above: 1-2 cups of coffee d aily; Start: 05-26-2023 End: 03-22-2024 Sex Assigned At [facility] Other Start: 04-08-2019 End: 05-26-2023 Tobacco smoking status NYIS Ex-smoker (finding) [facility] Start: 1955 Sex Assigned At Male F [facility] Start: 03-19-1974 End: 05-09-1996 History of tobacco use Current smoker [facility] Work Phone: Start: 03-19-1974 End: 05-09-1996 History of tobacco use Cigarette Smoker [facility] Work Phone: Start: 03-19-2022 End: 05-26-2023 Tobacco use and exposure Smokeless tobacco non-user [facility] Work Phone: Start: 06-18-2023 End: 03-22-2024 Alcohol intake Current drinker of alcohol (finding) [facility] Work Phone: Start: 1955 Sex Assigned At Not on file [facility] Work Phone: Start: 06-08-2023 End: 03-22-2024 Exposure to SARS-CoV-2 (event) Not sure [facility] Has the [employer], or [employer] threatened to shut off services in your home in past 12Mo No [facility] Do you belong to any clubs or organizations such as christian groups, unions, fraternal or athletic groups, or school groups? Yes [facility] Are you now , , , , never or living with a partner? [facility] How often to you hav e a drink containing alcohol? 4 or more times a week [facility] How many standard dr inks containing alcohol do you have on a typical day? 1 or 2 [facility] How often do you hav e 6 or more drinks on 1 occasion? Less than monthly [facility] How hard is it for y ou to pay for the very basics like food, housing, medical care, and heating Not hard at all [facility] Do you feel stress - tense, restless, nervous, or anxious, or unable to sleep at night because your mind is troubled all the time - these days [OSQ] Not at all [facility] Start: 03-20-2022 Alcohol Comment Occasional [facility] How hard is it for y ou to pay for the very basics like food, housing, medical care, and heating Not very hard [facility] [employer] Start: 03-27-2022 Tobacco smoking stat NHIS Never smoked tobacco (finding) [facility] Medical Equipment Procedure Code Equipment Code Equipment Origin al Text Equipment Identifier Dates Accu-Chek Carley Plus test strips TEST ONCE DAILY [id number] End: 06-29-2023 Accu-Chek Fastcl ix Lancet Drum USE ONCE DAILY DIRECTED [id number] End: 06-29-2023 Accu-Chek FastCl ix Lancing Device [id number] End: 07-02-2023 Accu-Chek Carley Plus test strips TEST ONCE DAILY [id number] Start: 06-29-2023 End: 07-02-2023 Accu-Chek Fastcl ix Lancet Drum USE ONCE DAILY DIRECTED [id number] Start: 06-29-2023 End: 07-02-2023 Accu-Chek Carley Plus test strips TEST ONCE DAILY [id number] Start: 07-03-2023 Accu-Chek Fastcl ix Lancet Drum USE ONCE DAILY DIRECTED [id number] Start: 07-03-2023 Accu-Chek FastCl ix Lancing Device [id number] Start: 07-03-2023 Accu-Chek Carley Plus test strips TEST ONCE DAILY [id number] Start: 07-03-2023 Accu-Chek Fastcl ix Lancet Drum USE ONCE DAILY DIRECTED [id number] Start: 07-03-2023 Clinical Notes 07-24-2021 to 03-22-2024 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 with previous [employer] TWISTING DEPARTMENT the right SFA 2008, currently has stable [...] discussion and plan. documented in this encounter [facility] Work Phone: 03-22-2024 Instructions Buffy Funez LPN [...] work Follow up documented in this encounter [facility] Work Phone: 02-29-2024 Miscellaneous Notes PATIENT IS COMING IN 12/16 AND WOULD LIKE LABS SENT TO [facility] PLEASE AND THANKK YOU documented in this encounter [facility] 02-29-2024 Telephone encounter Note PATIENT IS COMING IN 05/02 AND WOULD LIKE LABS SENT TO [facility] PLEASE AND THANKK YOU [facility] 12-28-2023 Note Patient Education Urology Hypogonadism, [...] Follow these instructions at home: ? Take [id number] and prescription medicines only as told by [...] provider. Document Revised: (more content not included)... [facility] 07-02-2023 Miscellaneous Notes Pt called and needs all GULOSE TESTING supplies sent to [facility] due to medicare only covering them from there. documented in this encounter [facility] 07-02-2023 Telephone encounter Note Pt called and needs all GULOSE TESTING supplies sent to [facility] due to medicare only covering them from there. [facility] 07-01-2023 Miscellaneous Notes Pt called yaritza [...] was going on documented in this encounter [facility] 07-01-2023 Telephone encounter Note Pt called yaritza aid called him stated his insurance is not covering his lancets or strips there wanted to know if you could point him in the right direction as he is not sure [facility] 07-01-2023 Telephone encounter Note It sounds like a formulary issue. They should cover some type of glucometer and test strips. Have him check his formulary and see which brand is covered and then let us know. [facility] 07-01-2023 Telephone encounter Note He did say when he got home he was going to call his insurance and see what was going on [facility] 06-25-2023 History of Present illness Narrative Subjective Patient ID: Mike Florentino is a 67 y.o. male. Mike presents today to discuss several issues regarding his medications. He had labs done ordered by the solutions executive security at another facility and is here to [...] April 08, [address] Adames in [place] and it was normal. He has been getting pain in his thighs lately. His solutions executive security told him it was probably his circulation [...] polyneuropathy, without long-term current use of insulin ([facility]) We discussed his medications. He would like [...] is aware of that. Peripheral vascular disease ([facility]) Follow-up with cardiology as directed. Controlling risk factors are important. His lipids and CMP were essentially at goal. documented in this encounter [facility] 06-18-2023 History of Present illness Narrative Subjective 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 with previous [employer] TWISTING DEPARTMENT the right SFA 2008, currently has stable [...] which came back normal Jade Gale MD, [facility] Review of Systems All other systems [...] Jade Gale MD. documented in this encounter [facility] Work Phone: 06-18-2023 Instructions Willian Sumner [...] of your visit. documented in this encounter [facility] Work Phone: 03-27-2022 Evaluation note Encounter [...] sleepiness, or poor response to treatment. . [employer] Other 03-09-2022 NotePROCEDURE: XR KNEE RT 4V [...] Electronically authenticated by: EILEEN QURESHI Date: 2021-07-24 17:01[facility] assessment information available[facility] Work Phone: Evaluation note* Diagnosis ASCVD (arteriosclerotic cardiovascular disease)- Primary Unspecified cardiovascular disease Peripheral vascular disease (CMS/HCC) Unspecified peripheral vascular disease Essential hypertension Unspecified essential hypertension Hyperlipidemia, unspecified hyperlipidemia type Other specified diabetes mellitus without complication, without long-term current use of insulin ([facility]) Former smoker Personal history of tobacco use, presenting hazards to health Overweight documented in this encounter [facility] Work Phone: Evaluation note* Diagnosis Type 2 diabetes mellitus with diabetic polyneuropathy, without long-term current use of insulin ([facility])- Primary Normocytic normochromic anemia Unspecified anemia Peripheral vascular disease ([facility]) Unspecified peripheral vascular disease Thrombocytopenia ([facility]) Unspecified thrombocytopenia [facility] Diagnosis Type 2 diabetes mellitus with diabetic polyneuropathy, without long-term current use of insulin ([facility])- Primary [facility] Diagnosis Type 2 diabetes mellitus with diabetic polyneuropathy, without long-term current use of insulin ([facility] Diagnosis Normocytic normochromic anemia- Primary Unspecified anemia Type 2 diabetes mellitus with diabetic polyneuropathy, without long-term current use of insulin ([facility]) Essential hypertension Unspecified essential hypertension [facility] Diagnosis ASCVD (arteriosclerotic cardiovascular disease)- Primary Unspecified cardiovascular disease Peripheral vascular disease ([facility]) Unspecified peripheral vascular disease Essential hypertension Unspecified [...] stated as uncontrolled documented in this encounter [facility] Work Phone: History general Narrative - Reported* Type Description Date Medical History ROCK (obstructive sleep apnea) Medical History CAD in tribe artery Surgical History heart stent Surgical History left hip replacement [employer] Other InstructionsNot on filedocumented in this encounter [facility] [employer] SystemInstructionsNot on filedocumented in this encounter [facility] this [facility] filedocumented in this encounter [facility] filedocumented in this encounter [facility] on filedocumented in this encounter [facility] (narrative)* Consultation (Routine) - Authorized Specialty Diagnoses / Procedures Referred By Contyulisa t Referred To Contact Cardiology Diagnoses ASCVD (arteriosclerotic cardiovascular disease) Peripheral vascular disease (CMS/HCC) Essential hypertension Hyperlipidemia, unspecified hyperlipidemia type Other specified diabetes mellitus without complication, without long-term current use of insulin (CMS/HCC) Procedures Follow Up In Cardiology Jade Gale MD [address] [place] [address] [address], [address] [address] Jade Gale MD [address] [place] [address] 2, [address] [address] Referral ID Status Reason Start Date Expiration Date V isits Requested Visits Authorized [id number] Authorized 06/18/2023 06/17/2024 1 1 [facility] Work Phone: Summary Purpose Family History [...] with tobacco use. He has had previous [employer] of the femoral arteries in the past. 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 with previous [employer] the right SFA 2008, currently has stable [...] which is scheduled * [facility], [facility] Additional Source Comments (unrecognized sect ion and content) No Status Records FoundNo Status Records FoundNo Status Records FoundNo Status Records FoundNo Status Records FoundNo Status Records FoundNo Status Records FoundNo Status Records FoundNo Status Records FoundNo Status Records Found INFORMATION SOURCE (unrecogn ized section and content) DATE CREATED AUTHOR 11/06/2017 Donna wong DATE CREATED AUTHOR AUTHOR'S ORGANIZ ATION 02/16/2022 [facility] DATE CREATED AUTHOR AUTHOR'S ORGANIZ ATION 02/16/2022 [employer] DATE CREATED AUTHOR AUTHOR'S ORGANIZ ATION 05/08/2022 [facility] DATE CREATED AUTHOR AUTHOR'S ORGANIZ ATION [facility]/07[facility]2023 [facility] DATE CREATED AUTHOR AUTHOR'S ORGANIZ ATION 03/25/2023 [facility] DATE CREATED AUTHOR AUTHOR'S ORGANIZ ATION 06/29/2023 [facility] DATE CREATED AUTHOR AUTHOR'S ORGANIZ ATION 03/10/2024 [facility] DATE CREATED AUTHOR AUTHOR'S ORGANIZ ATION 03/23/2024 [facility] DATE CREATED AUTHOR AUTHOR'S ORGANIZ ATION 04/07/2024 [facility] Care Teams (unrecognized sec tion and [...] Active Aryan Garcia MD Attending Provider Active Air Intercept Controller Relationship Specialty Start Date End Date Josh Ospina DO [address] [place] [address] PCP - General 05/18/99 [employer] Controller Relationship Specialty Start Date End Date Josh Ospina DO [address] [place] [address] PCP - General Family Medicine 03/19/22 [employer] Controller Relationship Specialty Start Date End Date Josh Ospina DO [address] [place] [address] PCP - General Family Medicine 03/19/22 Air Intercept Controller Relationship Specialty Start Date End Date Josh Ospina DO [address] [place] [address] PCP - General Family Medicine 03/19/22 Air Intercept Controller Relationship Specialty Start Date End Date Josh Ospina DO [address] [place] [address] PCP - General Family Medicine 03/19/22 Air Intercept Controller Relationship Specialty Start Date End Date Josh Ospina DO [address] [place] [address] PCP - General Family Medicine 03/19/22 [employer] Intercept Controller Relationship Specialty Start Date End Date Josh Ospina DO [address] [place] [address] PCP - General Family Medicine 03/19/22 [employer] Intercept Controller Relationship Specialty Start Date End Date Josh Ospina DO [address] [place] [address] PCP - General Family Medicine 03/19/22 [employer] Relationship Specialty Start Date End Date Josh Ospina DO PCP - General 05/18/99 Goals (unrecognized section and content) Goals may be documented in a n alternate section Reason for Visit (unrecogniz ed section and content) Reason Comments Follow-up 9 months Specialty Diagnoses / Procedures Referred By Contyulisa t Referred To Contact Cardiology Diagnoses ASCVD (arteriosclerotic cardiovascular disease) Peripheral vascular disease ([facility]) Essential hypertension Hyperlipidemia, unspecified hyperlipidemia type Other specified diabetes mellitus without complication, without long-term current use of insulin Procedures Follow Up In Cardiology Jade Gale MD [address] [address], [address] [address] Phone: tel: fax: Jade Gale MD [address] [facility] [address], [address] [address] Phone: tel: fax: Referral ID Status Reason Start Date Expiration Date V isits Requested Visits Authorized [id number] Authorized 06/18/2023 06/17/2024 1 Reason Onset Date [...] BE BASED ON THE PRIMARY CLINICAL RECORDS. [facility]. provides no warranty or guarantee of the accuracy or completeness of information in this document.
[2024-04-18 08:54] LABS: Cholesterol 133 mg/dL (<=200); HDL Cholesterol 66 mg/dL (40-60); Triglycerides 42 mg/dL (<=150); VLDL CHOLESTEROL 8.4 mg/dL
== END 2024-04-18 07:33 | disposition home or self-care (01) ==
LOC: LAB 07:34
PROVIDERS: PCP Family Medicine; Visit Provider Internal Medicine Cardiovascular Disease
DX: I25.10 Atherosclerotic heart disease of native coronary artery without angina pectoris (principal); E78.5 Hyperlipidemia, unspecified
CPT/HCPCS: 36415; 80061

== ENCOUNTER 2024-04-18 07:49 | Outpatient (OUT) | payer MEDICARE, OTHER, SELFPAY ==
--- OUTSIDE RECORDS SUMMARY | 2024-04-18 08:07 | XMS_ITS | CCD ---
Author Organization [facility] Inform ion [facility] Care Team Providers Care Materials Handling Coordinator Name Role Phone EILEEN PURVIS Unavailable Unavai JOSH Farrar Unavailable Unavailable Josh Ospina Unavailable Unavailable Unavailable Unavailable Unavailable Baljinder, Dr. Jade Sanz Attending Shantel vailable Janell, Josh Willy Primary Care Unavailab le Gale, Dr. Jade Sanz Referring Shantel [facility]ailable [facility] Unavailab le Baljinder, Dr. Jade Sanz Referring Shantel vailable Gale, Dr. Jade Sanz Attending Shantel ildable Aryan Garcia Unavailable DO Josh Ospina Primary Care Provider MD Aryan Garcia Attending Provider [phone] DR SHADY MOHAN Attending Unavailable JANELL, DR [...] Unavailable Bailey, Shanice Attending Unavailable Furlong, Josh [facility] Care Unavailable Aryan Garcia Attending Unavailable Furlong, Josh [facility] Care Unavailable Aryan Garcia Admitting Unavailable Furlong Josh GONGORA Primary Care Provider Furlong Josh GONGORA Primary Care Provider [phone] JOSH OSPINA Attending Unavailable FURLONG, JOSH Sanchez [...] Ticagrelor; Translations: [Brilinta TABS] Drug Allergy 2 [facility] (2 sources) Ticagrelor; Translations: [TICAGRELOR] Drug Allergy 2 [facility] (2 sources) Bee/Wasp/Ant venom; Translations: [Bee Stings] Propensity to adverse reactions (disorder) [facility] (2 sources) No Known Medication Allergies; Translations: [No Known Medication Allergies] Propensity to adverse reactions (disorder) [facility] Repository Medications Current Medications Medication [...] polyneuropathy, without long-term current use of insulin ([facility]) Take 1 tablet (300 mg total) [...] 06-25-2023 05-04-2023 Other aftercare (1 source) Other detention (current) drug therapy; Translations: [OTH FDC CURRENT DRUG THERAPY] Onset: 07-16-2021 Episodic Other [...] VILLAVICENCIO, Shady Rizo Where: [facility] [address] [address]- Medications What How Much When Instructions Unchanged [...] you for choosing us for your care. [facility] Ambulatory Visit Summaryon 0 01-12-2024 Ambulatory [...] AM EDT With: Where: [facility] [place] [address] [employer] [place] [address]- Thursday 8:45 AM EST With: JAMSHID VILLAVICENCIO, Shady Rizo Where: [facility] [address] [address]- Medications What How Much When Instructions Unchanged [...] you for choosing us for your care. [facility] Ambulatory Visit Summaryon 0 12-28-2023 Ambulatory [...] AM EDT With: Where: [facility] [address] [place] [address]- Thursday 8:45 AM EST With: Shady MOHAN MD Where: [facility] [address] [facility] [address]- You Need to Schedule the Following Appointments Follow Up with Shady MOHAN MD, URL When: Where: [facility] [address], [facility] [place] [address]- Medications What How Much When Instructions Changed sildenafil (sildenafil 100 mg Tab) 1 Tablets By Mouth As Directed as needed for Other (see comment) Take 1 hour prior to sexual activity. Do not exceed more than 100 mg (1 tab) within 24 hours. Pickup at [facility] Changed testosterone (testosterone cypionate 200 mg/ mL IM Mavis) 300 Milligram Intramuscular Every 4 weeks Pickup at [facility] Unchanged clopidogrel (clopidogrel 75 mg Tab) [...] physician if questions or concerns Pharmacy Information [facility]: [address] [place], [place] [id number] [phone] What How Much When Comments Stop Taking [...] characteristics duri (more content not included)... Normal [facility] PSA Totalon 12-28-2023 Prostate specific Ag [Mass/Vol] 0.5 ng/mL Normal 0.1-3.5 [facility] Comment on above: Result Comment: The concentration of PSA determined by different manufacturers can vary due to differences in assay methods and reagent specificity. Values obtained from different assay methods cannot be used interchangeably. The methodology used for this result was chemiluminescence using [employer]'s Access Hybritech PSA reagent. Performed By: #### 1 [id number] #### [facility] [address] [place] [address] Urology Office/Clinic Noteon 12-28-2023 Urology Office/Clinic Note [...] [facility] [address], [place] [address]- Additional Instructions: 4 mos with T level. [...] Oral, Daily Caio (more content not included)... [facility] Comment on above: Result Comment: Elec tronically Signed By: Shady MOHAN MD\.br\Date and Time Signed: 12/28/23 13:12 EDT\.br\Electronically Co-Signed By: Kaia Valdez\.br\Date and Time Co-Signed: 12/28/23 13:08 EDT Pre-Certification Formon Pre-Certification Form [id number]#1.0 0TIFF [facility] Pre-Certification Formon Pre-Certification Form [id number]#1.0 0TIFF [facility] Lab Reportson 06-30-2023 Lab Reports [id number]#1.0 0TIFF [facility] Lab Reportson 06-20-2023 Lab Reports [id number]#1.0 0TIFF [facility] Pre-Certification Formon Pre-Certification Form [id number]#1.0 0TIFF [facility] Complete Blood Count Auto Di ffon 03-17-2023 Basophils (Bld) [#/Vol] 0.0 10*3/uL Normal 0.0-0.2 [facility] Comment on above: Performed By: #### C MP, ESR, CBC #### [facility] [address] Basophils/100 WBC (Bld) 0.3 % Normal . [facility] Comment on above: Performed By: #### C MP, ESR, CBC #### [facility] [address] Eosinophils (Bld) [#/Vol] 0.1 10*3/uL Normal 0.0-0.45 [facility] Comment on above: Performed By: #### C MP, ESR, CBC #### [address] Eosinophils/100 WBC (Bld) 1.2 % Normal . [facility] Comment on above: Performed By: #### C MP, ESR, CBC #### [address] Erythrocyte distribution width (RBC) [Ratio] 14.1 % Normal 12.0-14.8 [facility] Comment on above: Performed By: #### C MP, ESR, CBC #### [address] Hematocrit (Bld) [Volume fraction] 38.4 % Low 38.8-50.0 [facility] Comment on above: Performed By: #### C MP, ESR, CBC #### [place] [address] [place] Hemoglobin (Bld) [Mass/Vol] 13.1 g/dL Normal 13.0-17.0 [facility] Comment on above: Performed By: #### C MP, ESR, CBC #### [place] [address] [place] Lymphocytes (Bld) [#/Vol] 1.0 10*3/uL Normal 1.00-4.8 [facility] Comment on above: Performed By: #### C MP, ESR, CBC #### [place] [address] [place] Lymphocytes/100 WBC (Bld) 22.5 % Normal . [facility] Comment on above: Performed By: #### C MP, ESR, CBC #### [address] MCH (RBC) [Entitic mass] 31.1 pg Normal 27.5-35.2 [facility] Comment on above: Performed By: #### C MP, ESR, CBC #### [address] MCV (RBC) [Entitic vol] 91.2 fL Normal 83.5-101 [facility] Comment on above: Performed By: #### C MP, ESR, CBC #### [address] Mean Corpuscular HGB Conc 34.1 g/dL Normal 32.5-35.6 [facility] Comment on above: Performed By: #### C MP, ESR, CBC #### [address] Monocytes (Bld) [#/Vol] 0.3 10*3/uL Normal 0.0-0.8 [facility] Comment on above: Performed By: #### C MP, ESR, CBC #### [address] Monocytes/100 WBC (Bld) 7.3 % Normal . [facility] Comment on above: Performed By: #### C MP, ESR, CBC #### [address] Neutrophils (Bld) [#/Vol] 3.1 10*3/uL Normal 1.8-7.7 [facility] Comment on above: Performed By: #### C MP, ESR, CBC #### [address] Neutrophils/100 WBC (Bld) 68.7 % Normal . [facility] Comment on above: Performed By: #### C MP, ESR, CBC #### [address] NRBC% 0.0 /100{WBC} Normal 0-0.5 [facility] Comment on above: Performed By: #### C MP, ESR, CBC #### [address] Platelet mean volume (Bld) [Entitic vol] 9.7 fL Normal 6.6-10.1 [facility] Comment on above: Performed By: #### C MP, ESR, CBC #### [address] Platelets (Bld) [#/Vol] 144 10*3/uL Low 150-450 [facility] Comment on above: Performed By: #### C MP, ESR, CBC #### [address] RBC (Bld) [#/Vol] 4.21 10*6/uL Normal 3.90-5.60 [facility] Comment on above: Performed By: #### C MP, ESR, CBC #### [address] WBC (Bld) [#/Vol] 4.5 10*3/uL Normal 4.1-10.5 [facility] Comment on above: Performed By: #### C MP, ESR, CBC #### [address] Comprehensive Metabolic Pane jerrell 03-17-2023 Albumin [Mass/Vol] 4.5 g/dL Normal 3.5-5.7 [facility] Comment on above: Performed By: #### C MP, ESR, CBC #### [address] Albumin/Globulin [Mass ratio] 2.0 {ratio} Normal [facility] Comment on above: Performed By: #### C MP, ESR, CBC #### [address] ALP [Catalytic activity/Vol] 43 U/L Normal 34-104 [facility] Comment on above: Result Comment: PERF ORMED BY: [place] [address] PATHOLOGIST SHIP FASTENER BALDEMAR MCKINLEY M.D. Performed By: #### C MP, ESR, CBC #### [address] ALT [Catalytic activity/Vol] 14 U/L Normal 7-52 [facility] Comment on above: Performed By: #### C MP, ESR, CBC #### [address] Anion gap [Moles/Vol] 10.2 mmol/L Normal 6.0-15.0 [facility] Comment on above: Performed By: #### C MP, ESR, CBC #### [address] AST [Catalytic activity/Vol] 13 U/L Normal 13-39 [facility] Comment on above: Performed By: #### C MP, ESR, CBC #### [address] Bilirubin [Mass/Vol] 0.6 mg/dL Normal 0.3-1.0 [facility] Comment on above: Performed By: #### C MP, ESR, CBC #### [address] Calcium [Mass/Vol] 9.5 mg/dL Normal 8.6-10.3 [facility] Comment on above: Performed By: #### C MP, ESR, CBC #### [address] Chloride [Moles/Vol] 100 mmol/L Normal 98-107 [facility] Comment on above: Performed By: #### C MP, ESR, CBC #### [address] CO2 [Moles/Vol] 30.5 mmol/L Normal 21.0-31.0 [facility] Comment on above: Performed By: #### C MP, ESR, CBC #### [address] Creatinine [Mass/Vol] 0.98 mg/dL Normal 0.70-1.30 [facility] Comment on above: Performed By: #### C MP, ESR, CBC #### [facility] [address] [place] [address] [place] GFR/1.73 sq M.predicted MDRD (S/P/Bld) [Vol rate/Area] mL/min/{1.73_m2} Normal [facility] Comment on above: Performed By: #### C MP, ESR, CBC #### [facility] [address] Globulin (S) [Mass/Vol] 2.3 g/dL Normal [facility] Comment on above: Performed By: #### C MP, ESR, CBC #### [address] Glucose [Mass/Vol] 177 mg/dL High 70-100 [facility] Comment on above: Result Comment: [place] Glucose Reference Range is dependent on time and content of last meal. Glucose of more than 200 mg/dL in a nonstressed, ambulatory subject supports the diagnosis of Diabetes Mellitus. ADA recommended reference range Performed By: #### C MP, ESR, CBC #### [address] Potassium [Moles/Vol] 4.7 mmol/L Normal 3.5-5.1 [facility] Comment on above: Performed By: #### C MP, ESR, CBC #### [place] [address] [place] Protein [Mass/Vol] 6.8 g/dL Normal 6.4-8.9 [facility] Comment on above: Performed By: #### C MP, ESR, CBC #### [place] [address] [place] Sodium [Moles/Vol] 136 mmol/L Normal 136-145 [facility] Comment on above: Performed By: #### C MP, ESR, CBC #### [place] [address] [place] Urea nitrogen [Mass/Vol] 16 mg/dL Normal 7-25 [facility] Comment on above: Performed By: #### C MP, ESR, CBC #### [facility] [address] Erythrocyte Sedimentation Ra riya 03-17-2023 ESR (Bld) [Velocity] 15 mm/h Normal 0-19 [facility] Comment on above: Result Comment: PERF ORMED BY: [place] [address] PATHOLOGIST SHIP FASTENER BALDEMAR MCKINLEY M.D. Performed By: #### C MP, ESR, CBC #### [facility] [address] VASC LAB Abdominal Aorta/Isela ac/IVC Ultraon 01-05-2023 VASC LAB Abdominal Aorta/Iliac/IVC Ultra [address], [address] [place] [address] Vascular Lab Report Abdominal Aorta Iliac Ultrasound/IVC Ultrasound Patient Name: MIKE [place] Physician: [id number] Jade Gale MD, [facility] Study Date: 01/05/2023 Referring JDAE GALE Physician: MRN/PID: [id number] PCP: Josh Ospina MD Accession/Order#: [id number] CC Report to: Date of : 1955 Technologist: Deidre Jimenez RD, [facility] Gender: M Technologist 2: Admission Status: Outpatient Location Performed: [facility] Diagnosis/ICD: B66-Ffjigeloj primary hypertension; R09.89-Bruit; I73.9-Peripheral vascular disease, unspecified Indication: ASCVD, Former Smoker, SFA CARROTER-2008, Hyperlipidemia, Diabetes, ROCK, Overweight, PTCA-2004 and 2016 Procedure/CPT: 33698 Ultrasound, abdominal aorta, real time with image documentation, screening study for (AAA)-[id number] CONCLUSIONS: Aorta/Common Iliac Arteries/IVC: No evidence of abdominal aortic aneurysm. Imaging AND Doppler Findings: AORTA AP Lateral PSV Proximal 1.49 cm 1.36 cm 101.0 cm/s Mid 1.55 cm 1.43 cm 97.0 cm/s Distal 1.57 cm 1.51 cm 72.0 cm/s RIGHT AP Lateral PSV FRANCISCO Proximal 1.08 cm 0.81 cm 147.00 cm/s LEFT AP Lateral PSV FRANCISCO Proximal 0.83 cm 0.96 cm 94.00 cm/s 42524 Jade Gale MD, FACC Final Normal [facility] TESTOSTERONE, TOTALon 2021 Testosterone [Mass/Vol] 229 ng/dL Critically low 264-916 [facility] Comment on above: Result Comment: Adul t male reference interval is based on a population of healthy nonobese males (BMI <30) between 19 and 39 years old. beverly Kelly.al. JCEM 2017,102;2896-5547. PMID: [id number]. Performed By: #### T ESTTOT ####[facility] [id number] [place], [place] [address]QoAlex Carranza Office Visit (Cardiology)on 02-04-2022 Follow-up visit [...] Weight Tips; Status:Complete - Retrospective Authorization; Done: [id number] Some eating tips that can help you lose weight.; Status:Complete - Retrospective Authorization; Done: [id number] SocHx: Former smoker Tobacco Use Screening; Status:Complete; Done: [id number] Patient Instructions Please bring all medicines, vitamins, 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 with previous CARROTER the right SFA 2008, currently has no [...] December 2021 was 6.0 Jade Gale MD, [facility] Surgical History Problems History of Angioplasty [...] negative for complaint. Vitals Vital Signs Recorded: [id number] 08:27AM Heart Rate74, R Radial Gvsmgdwg298, LUE, Sitting Qdgwjmzeo40, LUE, Sitting Height6 ft 2 in Glnjvo897 lb 2 oz BMI Pfsxsbabjh75.03 kg/m2 BSA Calculated2.29 Tobacco Useb) No PHQ-2 #1. Over the last 2 weeks have you felt down, depressed or hopeless? (If yes, answer PHQ-9 below)No PHQ-2 #2. Over the last 2 weeks have you felt littl (more content not included)... Normal [facility] GLYCOHEMOGLOBIN A1Con 2021 ADA RECOMMENDATION SEE BELOW Normal [facility] Comment on above: Result Comment: ADA RECOMMENDED LIMIT 4.0 - 6.0 ADA THERAPEUTIC TARGET < 7.0 ACTION SUGGESTED > 7.0 Performed By: #### A 1C #### [facility] [address] [place] [address] [address] Juan Alberto Carranza Glucose [Mass/Vol] 126 mg/dL Normal [facility] Comment on above: Performed By: #### A 1C #### [facility] [address] [place] [address] [address] Juan Alberto Carranza HbA1c (Bld) [Mass fraction] 6.0 % Normal 4.5-6.2 [facility] Comment on above: Performed By: #### A 1C #### [facility] [address] [place] [address] [address] Juan Alberto Carranza LIPID PROFILEon 01-10-2022 CHOL-HDL RATIO NORM SEE BELOW Normal [facility] Comment on above: Result Comment: 3.3 - 4.4 LOW RISK 4.4 - 7.1 AVERAGE RISK 7.1 - 11.0 MODERATE RISK >11.0 HIGH RISK Performed By: #### L IPID, CMP #### [facility] [address] [place] [address] [address] Juan Alberto Carranza Cholesterol [Mass/Vol] 136 mg/dL Normal <=200 [facility] Comment on above: Performed By: #### L IPID, CMP #### [facility] [address] [place] [address] [address] Juan Alberto Carranza Cholesterol in HDL [Mass/Vol] 62 mg/dL Critically high 40-60 [facility] Comment on above: Performed By: #### L IPID, CMP #### [facility] [address] [place] [address] [address] Juan Alberto Carranza Cholesterol in LDL [Mass/Vol] 57.6 mg/dL Normal [facility] Comment on above: Performed By: #### L IPID, CMP #### [facility] [address] [place] [address] [address] Juan Alberto Carranza Cholesterol.total/Ch olesterol in HDL [Mass ratio] 2.2 {ratio} Normal [facility] Comment on above: Performed By: #### L IPID, CMP #### [facility] [address] [place] [address] [address] Juan Alberto Carranza HDL NORMAL > or = 60 mg/dl - LO W CARDIOVASCULAR RISK <40 mg/dl - HIGH CARDIOVASCULAR RISK Normal [facility] Comment on above: Performed By: #### L IPID, CMP #### [facility] [address] [place] [address] [address] Juan Alberto Carranza LDL CALC NORMAL SEE BELOW Normal [facility] Comment on above: Result Comment: <100 mg/dl OPTIMAL 100 - 129 mg/dl NEAR OR ABOVE OPTIMAL 130 - 159 mg/dl BORDERLINE HIGH 160 - 189 mg/dl HIGH >190 mg/dl VERY HIGH Performed By: #### L IPID, CMP #### [facility] [address] [place] [address] [address] Juan Alberto Carranza Triglyceride [Mass/Vol] 82 mg/dL Normal <=150 [facility] Comment on above: Performed By: #### L IPID, CMP #### [facility] [address] [place] [address] [address] Juan Alberto Carranza VLDL CALC 16.4 mg/dL Normal [facility] Comment on above: Performed By: #### L IPID, CMP #### [facility] [address] [place] [address] Dr. Juan Alberto Carranza PROF 14(COMP METB)on 022 Albumin [Mass/Vol] 4.0 g/dL Normal 3.4-5.0 [facility] Comment on above: Performed By: #### L IPID, CMP #### [facility] [address] [place] [address] [address] Juan Alberto Carranza Albumin/Globulin [Mass ratio] 1.3 {ratio} Normal [facility] Comment on above: Performed By: #### L IPID, CMP #### [facility] [address] [place] [address] [address] Juan Alberto Carranza ALP [Catalytic activity/Vol] 48 U/L Normal 46-116 [facility] Comment on above: Performed By: #### L IPID, CMP #### [facility] [address] [place] [address] [address] Juan Alberto Carranza ALT [Catalytic activity/Vol] 28 U/L Normal 16-63 [facility] Comment on above: Performed By: #### L IPID, CMP #### [facility] [address] [place] [address] [address] Juan Alberto Carranza Anion gap [Moles/Vol] 13.2 mmol/L Normal [facility] Comment on above: Performed By: #### L IPID, CMP #### [facility] [address] [place] [address] [address] Juan Alberto Carranza AST [Catalytic activity/Vol] 13 U/L Critically low 15-37 [facility] Comment on above: Performed By: #### L IPID, CMP #### [facility] [address] [place] [address] Dr. Juan Alberto Carranza Bilirubin [Mass/Vol] 0.6 mg/dL Normal 0.2-1.0 [facility] Comment on above: Performed By: #### L IPID, CMP #### [facility] [address] [place] [address] Dr. Juan Alberto Carranza Calcium [Mass/Vol] 8.8 mg/dL Normal 8.5-10.1 [facility] Comment on above: Performed By: #### L IPID, CMP #### [facility] [address] [place] [address] Dr. Juan Alberto Carranza Chloride [Moles/Vol] 100 mmol/L Normal 98-107 [facility] Comment on above: Performed By: #### L IPID, CMP #### [facility] [address] [place] [address] Dr. Juan Alberto Carranza CO2 [Moles/Vol] 29.1 mmol/L Normal 21.0-32.0 [facility] Comment on above: Performed By: #### L IPID, CMP #### [facility] [address] [place] [address] Dr. Juan Alberto Carranza Creatinine [Mass/Vol] 0.89 mg/dL Normal 0.70-1.30 [facility] Comment on above: Performed By: #### L IPID, CMP #### [facility] [address] [place] [address] Dr. Juan Alberto Carranza EGFR-AF [place] >60 Normal >=60 [facility] Comment on above: Performed By: #### L IPID, CMP #### [facility] [address] [place] [address] Dr. Juan Alberto Carranza EGFR-NON AF [place] >60 Normal >=60 [facility] Comment on above: Performed By: #### L IPID, CMP #### [facility] [address] [place] [address] Dr. Juan Alberto Carranza Globulin (S) [Mass/Vol] 3.0 g/dL Normal [facility] Comment on above: Performed By: #### L IPID, CMP #### [facility] [address] [place] [address] Dr. Juan Alberto Carranza Glucose [Mass/Vol] 134 mg/dL Critically high 74-[address] [facility] Comment on above: Performed By: #### L IPID, CMP #### [facility] [address] [place] [address] Dr. Juan Alberto Carranza Potassium [Moles/Vol] 4.3 mmol/L Normal 3.5-5.1 [facility] Comment on above: Performed By: #### L IPID, CMP #### [facility] [address] [place] [address] Dr. Juan Alberto Carranza Protein [Mass/Vol] 7.0 g/dL Normal 6.4-8.2 [facility] Comment on above: Performed By: #### L IPID, CMP #### [facility] [address] [place] [address] Dr. Juan Alberto Carranza Sodium [Moles/Vol] 138 mmol/L Normal 136-145 [facility] Comment on above: Performed By: #### L IPID, CMP #### [facility] [address] [place] [address] Dr. Juan Alberto Carranza Urea nitrogen [Mass/Vol] 17.0 mg/dL Normal 7.0-18.0 [facility] Comment on above: Performed By: #### L IPID, CMP #### [facility] [address] [place] [address] Dr. Juan Alberto Carranza Urea nitrogen/Creatinine [Mass ratio] 19.1 mg/mg Normal [facility] Comment on above: Performed By: #### L IPID, CMP #### [facility] [address] [place] [address] Dr. Juan Alberto Carranza TESTOSTERONE, TOTALon 2021 Testosterone [Mass/Vol] 321 ng/dL Normal 264-916 [facility] Comment on above: Result Comment: Adul t male reference interval is based on a population of healthy nonobese males (BMI <30) between 19 and 39 years old. Leticia, et.al. JCEM 2017,102;8266-1699. PMID: [id number]. Performed By: #### T ESTTOT #### [facility] [address] [place] [address] Dr. Juan Alberto Carranza TESTOSTERONE, TOTALon 2021 Testosterone [Mass/Vol] 360 ng/dL Normal 264-916 [facility] Comment on above: Result Comment: Adul t male reference interval is based on a population of healthy nonobese males (BMI <30) between 19 and 39 years old. Leticia, et.al. EM 2017,102;0931-4919. PMID: [id number]. Performed By: #### T ESTTOT ####[facility] [id number] [place] [address]Dr. Juan Alberto Carranza CBC AUTO DIFFon 07-13-2021 BASO # 0.0 103/ul Normal 0.0-0.1 [facility] Comment on above: Performed By: #### C BC #### [facility] [address] [place] [address] Dr. Juan Alberto Carranza Basophils/100 WBC (Bld) 0.5 % Normal 0.2-2.0 [facility] Comment on above: Performed By: #### C BC #### [facility] [address] [place] [address] Dr. Juan Alberto Carranza EO # 0.1 103/ul Normal 0.0-0.7 [facility] Comment on above: Performed By: #### C BC #### [facility] [address] [place] [address] Dr. Juan Alberto Carranza Eosinophils/100 WBC (Bld) 1.8 % Normal 0.9-7.0 [facility] Comment on above: Performed By: #### C BC #### [facility] [address] [place] [address] Dr. Juan Alberto Carranza Erythrocyte distribution width (RBC) [Ratio] 13.5 % Normal 11.0-15.0 [facility] Comment on above: Performed By: #### C BC #### [facility] [address] [place] [address] Dr. Juan Alberto Carranza Hematocrit (Bld) [Volume fraction] 40.4 % Critically low 42.0-54.0 [facility] Comment on above: Performed By: #### C BC #### [facility] [address] [place] [address] Dr. Juan Alberto Carranza Hemoglobin (Bld) [Mass/Vol] 13.9 g/dL Critically low 14.0-18.0 [facility] Comment on above: Performed By: #### C BC #### [facility] [address] [place] [address] Dr. Juan Alberto Carranza IG # 0.01 10e3/ul Normal 0.00-0.03 [facility] Comment on above: Performed By: #### C BC #### [facility] [address] [place] [address] Dr. Juan Alberto Carranza IG % 0.2 % Normal 0.0-0.5 [facility] Comment on above: Performed By: #### C BC #### [facility] [address] [place] [address] Dr. Juan Alberto Carranza LYMPH # 0.9 103/ul Critically low 1.2-3.8 [facility] Comment on above: Performed By: #### C BC #### [facility] [address] [place] [address] Dr. Juan Alberto Carranza Lymphocytes/100 WBC (Bld) 20.5 % Normal 20.5-60.0 [facility] Comment on above: Performed By: #### C BC #### [facility] [address] [place] [address] Dr. Juan Alberto Carranza MANUAL DIFF REQ NO Normal [facility] Comment on above: Performed By: #### C BC #### [facility] [address] [place] [address] Dr. Juan Alberto Carranza MCH (RBC) [Entitic mass] 32.3 pg Normal 25.9-34.0 [facility] Comment on above: Performed By: #### C BC #### [facility] [address] [place] [address] Dr. Juan Alberto Carranza MCHC (RBC) [Mass/Vol] 34.4 g/dL Normal 29.9-35.2 [facility] Comment on above: Performed By: #### C BC #### [facility] [address] [place] [address] Dr. Juan Alberto Carranza MCV (RBC) [Entitic vol] 93.7 fL Normal 80.0-94.0 [facility] Comment on above: Performed By: #### C BC #### [facility] [address] [place] [address] Dr. Juan Alberto Carranza MONO # 0.3 103/ul Normal 0.3-0.8 [facility] Comment on above: Performed By: #### C BC #### [facility] [address] [place] [address] Dr. Juan Alberto Carranza Monocytes/100 WBC (Bld) 7.0 % Normal 1.7-12.0 [facility] Comment on above: Performed By: #### C BC #### [facility] [address] [place] [address] Dr. Juan Alberto Carranza NEUT # 3.1 103/ul Normal 1.4-6.5 [facility] Comment on above: Performed By: #### C BC #### [facility] [address] [place] [address] Dr. Juan Alberto Carranza Neutrophils/100 WBC (Bld) 70.0 % Normal 43.0-75.0 [facility] Comment on above: Performed By: #### C BC #### [facility] [address] [place] [address] Dr. Juan Alberto Carranza Platelet mean volume (Bld) [Entitic vol] 11.3 fL Normal 9.5-13.5 [facility] Comment on above: Performed By: #### C BC #### [facility] [address] [place] [address] Dr. Juan Alberto Carranza PLT 141 103/ul Critically low 150-450 [facility] Comment on above: Performed By: #### C BC #### [facility] [address] [address] [address] Juan Alberto Carranza RBC 4.31 106/ul Critically low 4.70-6.10 [facility] Comment on above: Performed By: #### C BC #### [facility] [address] [address] [address] Juan Alberto Carranza WBC 4.4 103/ul Normal 4.0-11.0 [facility] Comment on above: Performed By: #### C BC #### [facility] [address] [address] [address] Juan Alberto Carranza LIPID PROFILEon 07-13-2021 CHOL-HDL RATIO NORM SEE BELOW Normal [facility] Comment on above: Result Comment: 3.3 - 4.4 LOW RISK 4.4 - 7.1 AVERAGE RISK 7.1 - 11.0 MODERATE RISK >11.0 HIGH RISK Performed By: #### L IPID #### [facility] [address] [place] [address] Dr. Juan Alberto Carranza Cholesterol [Mass/Vol] 139 mg/dL Normal <=200 [facility] Comment on above: Performed By: #### L IPID #### [facility] [address] [place] [address] Dr. Juan Alberto Carranza Cholesterol in HDL [Mass/Vol] 72 mg/dL Normal [facility] Comment on above: Performed By: #### L IPID #### [facility] [address] [address] [address] Juan Alberto Carranza Cholesterol in LDL [Mass/Vol] 62.4 mg/dL Normal [facility] Comment on above: Performed By: #### L IPID #### [facility] [address] [address] [address] Juan Alberto Carranza Cholesterol.total/Ch olesterol in HDL [Mass ratio] 1.9 {ratio} Normal [facility] Comment on above: Performed By: #### L IPID #### [facility] [address] [address] [address] Juan Alberto Carranza HDL NORMAL > or = 60 mg/dl - LO W CARDIOVASCULAR RISK <40 mg/dl - HIGH CARDIOVASCULAR RISK Normal [facility] Comment on above: Performed By: #### L IPID #### [facility] [address] [address] [address] Juan Alberto Carranza LDL CALC NORMAL SEE BELOW Normal [facility] Comment on above: Result Comment: <100 mg/dl OPTIMAL 100 - 129 mg/dl NEAR OR ABOVE OPTIMAL 130 - 159 mg/dl BORDERLINE HIGH 160 - 189 mg/dl HIGH >190 mg/dl VERY HIGH Performed By: #### L IPID #### [facility] [address] [address] [address] Juan Alberto Carranza Triglyceride [Mass/Vol] 23 mg/dL Normal <=150 [facility] Comment on above: Performed By: #### L IPID #### [facility] [address] [place] [address] Dr. Juan Alberto Carranza VLDL CALC 4.6 mg/dL Normal [facility] Comment on above: Performed By: #### L IPID #### [facility] [address] [place] [address] Dr. Juan Alberto Carranza PROF 14(COMP METB)on 022 Albumin [Mass/Vol] 4.0 g/dL Normal 3.5-5.0 [facility] Comment on above: Performed By: #### C MP #### [facility] [address] [place] [address] Dr. Juan Alberto Carranza Albumin/Globulin [Mass ratio] 1.3 {ratio} Normal [facility] Comment on above: Performed By: #### C MP #### [facility] [address] [address] [address] Juan Alberto Carranza ALP [Catalytic activity/Vol] 60 U/L Normal 38-126 [facility] Comment on above: Performed By: #### C MP #### [facility] [address] [address] [address] Juan Alberto Carranza ALT [Catalytic activity/Vol] 22 U/L Normal 21-72 [facility] Comment on above: Performed By: #### C MP #### [facility] [address] [address] [address] Juan Alberto Carranza Anion gap [Moles/Vol] 9.4 mmol/L Normal [facility] Comment on above: Performed By: #### C MP #### [facility] [address] [address] [address] Juan Alberto Carranza AST [Catalytic activity/Vol] 12 U/L Critically low 17-59 [facility] Comment on above: Performed By: #### C MP #### [facility] [address] [address] [address] Juan Alberto Carranza Bilirubin [Mass/Vol] 0.6 mg/dL Normal 0.2-1.3 [facility] Comment on above: Performed By: #### C MP #### [facility] [address] [address] [address] Juan Alberto Carranza Calcium [Mass/Vol] 8.9 mg/dL Normal 8.4-10.2 [facility] Comment on above: Performed By: #### C MP #### [facility] [address] [address] [address] Juan Alberto Carranza Chloride [Moles/Vol] 103 mmol/L Normal 98-107 [facility] Comment on above: Performed By: #### C MP #### [facility] [address] [address] [address] Juan Alberto Carranza CO2 [Moles/Vol] 28.8 mmol/L Normal 22.0-30.0 [facility] Comment on above: Performed By: #### C MP #### [facility] [address] [address] [address] Juan Alberto Carranza Creatinine [Mass/Vol] 0.83 mg/dL Normal 0.66-1.25 [facility] Comment on above: Performed By: #### C MP #### [facility] [address] [address] [address] Juan Alberto Carranza EGFR-AF [place] >60 Normal >=60 [facility] Comment on above: Performed By: #### C MP #### [facility] [address] [place] [address] Dr. Juan Alberto Carranza EGFR-NON AF [place] >60 Normal >=60 [facility] Comment on above: Performed By: #### C MP #### [facility] [address] [place] [address] Dr. Juan Alberto Carranza Globulin (S) [Mass/Vol] 3.2 g/dL Normal [facility] Comment on above: Performed By: #### C MP #### [facility] [address] [address] [address] Juan Alberto Carranza Glucose [Mass/Vol] 135 mg/dL Critically high 74-106 T [facility] Comment on above: Performed By: #### C MP #### [facility] [address] [place] [address] Dr. Juan Alberto Carranza Potassium [Moles/Vol] 5.2 mmol/L Critically high 3.4-5.0 [facility] Comment on above: Performed By: #### C MP #### [facility] [address] [place] [address] Dr. Juan Alberto Carranza Protein [Mass/Vol] 7.2 g/dL Normal 6.1-8.2 [facility] Comment on above: Performed By: #### C MP #### [facility] [address] [place] [address] Dr. Juan Alberto Carranza Sodium [Moles/Vol] 136 mmol/L Critically low 137-145 [facility] Comment on above: Performed By: #### C MP #### [facility] [address] [place] [address] Dr. Juan Alberto Carranza Urea nitrogen [Mass/Vol] 17.0 mg/dL Normal 9.0-20.0 [facility] Comment on above: Performed By: #### C MP #### [facility] [address] [place] [address] Dr. Juan Alberto Carranza Urea nitrogen/Creatinine [Mass ratio] 20.5 mg/mg Normal [facility] Comment on above: Performed By: #### C MP #### [facility] [address] [place] [address] Dr. Juan Alberto Carranza SED RATE [facility] 2021 SED RATE 2 mm/hr Normal <=20 [facility] Comment on above: Performed By: #### S EDR #### [facility] [address] [place], [place] [address] Dr. Juan Alberto Carranza Office Visit (Cardiology)on [...] Weight Tips; Status:Complete - Retrospective Authorization; Done: [id number] SocHx: Former smoker Tobacco Use Screening; Status:Complete; Done: [id number] Patient Instructions By signing my name below, 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 with previous CARROTER the right SFA 2008 4. Hyperlipidemia, on statin therapy, under control. Lipid profile was requested from PCP 5. Overweight. Weight has dropped 15 pounds from last year which is encouraging 6. Hypertension, presently under control. 7. Diabetes, under control., Lab data from PCP were requested Jade Gale MD, [facility] Current Meds Medication NameInstruction Aspirin 81 [...] negative for complaint. Vitals Vital Signs Recorded: [id number] 03:40PM Heart Rate80, R Radial Yzzhkgpl178, RUE, Sitting Yarsppfbb53, RUE, Sitting Height6 ft 2 in Yrewwz842 lb 9.6 oz BMI Hvxtuvnxzi24.61 kg/m2 BSA Calculated2.31 Tobacco Useb) No Fall [...] by:VENICE Maeigned by:Jair Olivia MD07/06/17inal result Normal [facility] Vital Signs Date Time Vital Sign Value Performing Clinician Facility 03-22-2024 10:51-0500 Body height 185.42 cm [facility] 03-22-2024 10:51-0500 Body mass index (BMI) [Ratio] 30 kg/m2 [facility] 03-22-2024 10:51-0500 Body weight 103.41 kg [facility] 03-22-2024 10:51-0500 Diastolic blood pressure 61 mm[Hg] [facility] 03-22-2024 10:51-0500 Heart rate 67 /min [facility] 03-22-2024 10:51-0500 SaO2% (BldA) [Mass fraction] 98 % [facility] 03-22-2024 10:51-0500 Systolic blood pressure 112 mm[Hg] [facility] 03-22-2024 08:42-0500 Body height 185.4 cm Jade Gale MD Work Phone: [facility] 03-22-2024 08:42-0500 Body mass index (BMI) [Ratio] 29.95 kg/m2 Jade Gale MD Work Phone: [facility] 03-22-2024 08:42-0500 Body weight 102.97 kg Jade Gale MD Work Phone: [facility] 03-22-2024 08:42-0500 Diastolic blood pressure 50 mm[Hg] Jade Gale MD Work Phone: [facility] 03-22-2024 08:42-0500 Heart rate 64 /min Jade Gale MD Work Phone: [facility] 03-22-2024 08:42-0500 Systolic blood pressure 100 mm[Hg] Jade Gale MD Work Phone: [facility] 06-25-2023 09:55-0500 Body mass index (BMI) [Ratio] 29.34 kg/m2 Josh Bermudezjenny Work Phone: [employer] 06-25-2023 09:55-0500 Body weight 100.88 kg Joshjose r Bermudezjenny Work Phone: [employer] 06-18-2023 08:39-0500 Body height 185.4 cm Jade Gale MD Work Phone: [facility] 06-18-2023 08:39-0500 Body mass index (BMI) [Ratio] 29.82 kg/m2 Jade Gale MD Work Phone: [facility] 06-18-2023 08:39-0500 Body weight 102.51 kg Jade Gale MD Work Phone: [facility] 06-18-2023 08:39-0500 Diastolic blood pressure 76 mm[Hg] Jade Gale MD Work Phone: [facility] 06-18-2023 08:39-0500 Heart rate 62 /min Jade Gale MD Work Phone: [facility] 06-18-2023 08:39-0500 Systolic blood pressure 130 mm[Hg] Jade Gale MD Work Phone: [facility] 03-27-2022 16:00-0500 Body height Aryan Garcia Other [employer] Other 03-27-2022 16:00-0500 Body mass index (BMI) [Ratio] 29.81 kg/m2 Aryan Garcia Other [employer] Other 03-27-2022 16:00-0500 Body temperature 96.9 [degF] Aryan Garcia Other [employer] Other 03-27-2022 16:00-0500 Body weight 102.51 kg Aryan Garcia Other [employer] Other 03-27-2022 16:00-0500 Diastolic blood pressure 70 mm[Hg] Aryan Garcia Other [employer] Other 03-27-2022 16:00-0500 SaO2% (BldA) [Mass fraction] 100 % Aryan Garcia Other [employer] Other 03-27-2022 16:00-0500 Systolic blood pressure 128 mm[Hg] Aryan Garcia Other [employer] Other Encounters Encounter Date Encounter Type Care Provider Facility Start: 05-02-2024 ambulatory Shady Hoff ty:IN[facility] Start: 04-04-2024 End: 04-04-2024 ambulatory Shady MOHAN Facility:[facility] Start: 03-22-2024 End: 03-22-2024 ambulatory [facility] Work Phone: Start: 03-22-2024 End: 03-22-2024 Patient encounter procedure [facility] Work Phone: Start: 03-22-2024 End: 03-22-2024 Office outpatient visit 25 minutes Jade Gale MD Work Phone: [facility] Comment on above: ASCVD (arteriosclero tic cardiovascular disease) (Primary Dx); Peripheral vascular disease ([facility]); Essential hypertension; Hyperlipidemia, unspecified hyperlipidemia type; Other specified diabetes mellitus without complication, without long-term current use of insulin; Obstructive sleep apnea syndrome; Former smoker; BMI 29.0-29.9,adult; Diabetes mellitus type II, non insulin dependent (Multi) Start: 03-22-2024 End: 03-22-2024 ambulatory JADE Holley [facility] Start: 03-08-2024 End: 03-08-2024 ambulatory Shady MOHAN Facility:[facility] Start: 02-29-2024 End: 02-29-2024 Orders Only Josh Snachez Janell DO Work Phone: [facility] Comment on above: Normocytic normochro alma anemia (Primary Dx); Type 2 diabetes mellitus with diabetic polyneuropathy, without long-term current use of insulin ([facility]); Essential hypertension Start: 02-08-2024 End: 02-08-2024 ambulatory Shady MOHAN Facility:[facility] Start: 01-12-2024 End: 01-12-2024 ambulatory Josseline Kerr Facility:[facility] Start: 12-28-2023 End: 12-28-2023 ambulatory Shady MOHAN [facility] Start: 12-28-2023 End: 12-28-2023 ambulatory Shady MOHAN Facility:[facility] Start: 11-02-2023 End: 11-02-2023 ambulatory Shady MOHAN Facility:[facility] Start: 07-02-2023 Refill Kenzie [facility] Comment on above: Type 2 diabetes gordy itus with diabetic polyneuropathy, without long-term current use of insulin ([facility]) (Primary Dx) Start: 07-01-2023 Refill Belkys Angelique CADD INSTRUCTOR Liyah albaa [facility] Comment on above: Type 2 diabetes gordy itus with diabetic polyneuropathy, without long-term current use of insulin (CMS-HCC) (Primary Dx) Start: 06-29-2023 Refill Belkys Angelique CADD INSTRUCTOR Liyah watts [facility] Start: 06-26-2023 Orders Only Josh secobedo DO [facility] Start: 06-25-2023 End: 06-25-[address] [facility] Start: 06-25-2023 End: 06-25-2023 Office outpatient visit 25 minutes Josh Ospina DO [facility] Comment on above: Type 2 diabetes gordy itus with diabetic polyneuropathy, without long-term current use of insulin (CMS-HCC) (Primary Dx); Normocytic normochromic anemia; Peripheral vascular disease (CMS-HCC); Thrombocytopenia (CMS-HCC) Start: 06-23-2023 Refill Belkys Angelique CADD INSTRUCTOR Liyah watts [facility] Start: 06-18-2023 End: 06-18-2023 Office outpatient visit 25 minutes Jade Gale MD Work Phone: [facility] Comment on above: ASCVD (arteriosclero tic cardiovascular disease) (Primary Dx); Peripheral vascular disease (CMS/HCC); Essential hypertension; Hyperlipidemia, unspecified hyperlipidemia type; Other specified diabetes mellitus without complication, without long-term current use of insulin (CMS/HCC); Former smoker; Overweight Start: 06-18-2023 End: 06-18-2023 ambulatory JADE GALE [facility] Amb[facility] Start: 05-04-2023 End: 05-04-[address] [facility] Start: 03-17-2023 End: 03-17-2023 ambulatory Shanice Bailey Facility:[facility] Start: 01-05-[address] Jade Gale Facility:[id number] Start: 10-08-2022 Office outpatient vi sit 25 minutes Josh Daileygregg Work Phone: [facility] Work Phone: Start: 08-20-2022 Rx Renewal Josh Sanchez Lararinku ng Work Phone: [facility] DO Work Phone: Start: 04-26-2022 End: 04-27-[address] JOSH OSPINA Facility:[facility] Start: 03-27-2022 End: 03-27-2022 Patient encounter procedure DO Josh Ospina Work Phone: [facility] Start: 03-27-2022 End: 03-27-2022 ambulatory DO Josh Ospina Work Phone: [facility] Work Phone: Start: 03-27-2022 Office outpatient vi sit 25 minutes Aryan [facility] Start: 02-04-[address] Jade Gale Facility:[id number] Start: 01-10-2022 End: 01-11-[address] JOSH OSPINA Facility:[facility] Start: 12-03-2021 Rx Renewal Josh Dailey ng Work Phone: [facility] 250 DO Work Phone: Start: 11-26-2021 Rx Renewal Josh Dailey ng Work Phone: [facility] 250 DO Work Phone: Start: 11-19-2021 Rx Renewal [facility]iley ng [facility] Work Phone: Start: 10-26-2021 End: 10-27-[address] JOSH OSPINA Facility:[facility] Start: 07-24-2021 End: 07-25-[address] SHANICE BAILEY Facility:[facility] Start: 07-13-2021 End: 07-14-[address] SHANICE BAILEY Facility:[facility] Start: 06-04-[address] JOSH OSPINA Femi ility:[facility] Start: 04-23-2021 ambulatory Josh Willy Bermudezjenny Sunday acility: Start: 07-06-2017 End: 07-09-2017 Ambulatory EILENE [facility] Procedures Date Procedure Procedure Detail [...] Adult depression scr eening assessment Belkys Angelique CADD INSTRUCTOR Start: 05-04-2023 Microalbumin [Mass/v olume] in Urine by Test strip Belkys Angelique CADD INSTRUCTOR Start: 05-13-2022 Diabetic retinal eye exam Belkys Angelique CADD INSTRUCTOR Start: 04-26-[address] PINO MOHAN Comment on above: Performed By: #### P SAD #### [facility] [address] [place] [address] Dr. Juan Alberto Carranza Start: 07-06-2017 Mri [...] colon Colon Cancer Screening 5 Year Sigmoidoscopy [facility] Comment on above: Postponed from 10/19/2000 (Not Indicated ) Start: 12-27-2024 End: 12-27-2024 Patient encounter procedure 12/27/2024 8:50 AM EDT Office Visit [facility] [address] [place] [address] Jade Gale MD [address] [place] [address] [facility] Start: 07-04-2024 DTaP,Tdap and Td Vaccines (2 - Td or Tdap) DTaP,Tdap and Td Vaccines (2 - Td or Tdap) [facility] Start: 07-04-2024 DTaP/Tdap/Td Vaccines (2 - Td or Tdap) DTaP/Tdap/Td Vaccines (2 - Td or Tdap) [facility] Start: 06-25-2024 Adult BMI Screening Adult BMI Screening [facility] Start: 06-25-2024 Depression Screening Depression Screening [facility] Start: 06-25-2024 Fall Risk Screening Fall Risk Screening [facility] Start: 06-25-2024 Tobacco Screening Tobacco Screening [facility] Start: 05-04-2024 Adult BMI Screening Adult BMI Screening [facility] Start: 05-04-2024 Depression Screening Depression Screening [facility] Start: 05-04-2024 Diabetic foot examination Diabetic Foot Exam [facility] Start: 05-04-2024 Fall Risk Screening Fall Risk Screening [facility] Start: 05-04-2024 Tobacco Screening Tobacco Screening [facility] Start: 05-04-2024 Urine screening for protein [facility] Start: 05-02-2024 End: 05-02-2024 Patient encounter procedure 05/02/2024 9:30 AM EST Office Visit [facility] [address] [place] [address] Josh Ospina, [address], [place] [address] [facility] Start: 04-07-2024 Screening for malignant neoplasm of colon [facility] Start: 03-22-2024 End: 03-22-2025 Alanine aminotransferase [Enzymatic activity/volume] in Serum or Plasma by With P-5'-P Alanine Aminotransferase Lab Routine ASCVD (arteriosclerotic cardiovascular disease) Hyperlipidemia, unspecified hyperlipidemia type Expected: 03/22/2024 (Approximate), Expires: 03/22/2025 [facility] Service Area Work Phone: Comment on above: Expected: 03/22/2024 (Approximate), Expi res: 03/22/2025 Start: 03-22-2024 End: 03-22-2025 Aspartate aminotransferase [Enzymatic activity/volume] in Serum or Plasma by With P-5'-P Aspartate Aminotransferase Lab Routine ASCVD (arteriosclerotic cardiovascular disease) Hyperlipidemia, unspecified hyperlipidemia type Expected: 03/22/2024 (Approximate), Expires: 03/22/2025 [facility] Work Phone: Comment on above: Expected: 03/22/2024 (Approximate), Expi res: 03/22/2025 Start: 03-22-2024 End: 03-22-2025 Basic metabolic 2000 panel - Serum or Plasma Basic Metabolic Panel Lab Routine ASCVD (arteriosclerotic cardiovascular disease) Essential hypertension Expected: 03/22/2024 (Approximate), Expires: 03/22/2025 [facility] Work Phone: Comment on above: Expected: 03/22/2024 (Approximate), Expi res: 03/22/2025 Start: 03-22-2024 End: 03-22-2025 CBC panel - Blood by Automated count CBC Lab Routine ASCVD (arteriosclerotic cardiovascular disease) Expected: 03/22/2024 (Approximate), Expires: 03/22/2025 [facility] Work Phone: Comment on above: Expected: 03/22/2024 (Approximate), Expi res: 03/22/2025 Start: 03-22-2024 End: 03-22-2025 Lipid 1996 panel - Serum or Plasma Lipid Panel Lab Routine ASCVD (arteriosclerotic cardiovascular disease) Hyperlipidemia, unspecified hyperlipidemia type Expected: 03/22/2024 (Approximate), Expires: 03/22/2025 [facility] Work Phone: Comment on above: Expected: 03/22/2024 (Approximate), Expi res: 03/22/2025 Start: 03-22-2024 End: 03-22-2024 Patient encounter procedure 03/22/2024 8:40 AM EST Office Visit [facility] [address] [facility] [address] [place] [id number] Jade Gale MD [address] [facility] [address], [facility] [address] [place] [address] [facility] Start: 01-17-2024 COVID-19 Vaccine ( season) COVID-19 Vaccine ( season) [facility] Start: 01-17-2024 COVID-19 Vaccine ( season) COVID-19 Vaccine ( season) [facility] Start: 01-17-2024 Influenza vaccination Influenza Vaccine [facility] Start: 09-18-2023 Medicare Annual Wellness Visit Medicare Annual Wellness Visit [facility] Start: 06-25-2023 End: 06-25-2023 Patient encounter procedure 06/25/2023 10:00 AM EST Office Visit [facility] [address] [place] [address] Josh Ospina, DO [address] [facility], [place] [address] [facility] Start: 06-18-2023 End: 06-18-2024 Alanine aminotransferase [Enzymatic activity/volume] in Serum or Plasma by With P-5'-P Alanine Aminotransferase Lab Routine ASCVD (arteriosclerotic cardiovascular disease) Peripheral vascular disease (CMS/HCC) Essential hypertension Hyperlipidemia, unspecified hyperlipidemia type Other specified diabetes mellitus without complication, without long-term current use of insulin (CMS/HCC) Expected: 06/18/2023 (Approximate), Expires: 06/18/2024 [facility] Service Area Work Phone: Comment on above: [...] insulin (CMS/HCC) Expected: 06/18/2023 (Approximate), Expires: 06/18/2024 [facility] Work Phone: Comment on above: Expected: 06/18/2023 (Approximate), Expi res: 06/18/2024 Start: 06-18-2023 End: 06-18-2024 Basic metabolic 2000 panel - Serum or Plasma Basic Metabolic Panel Lab Routine ASCVD (arteriosclerotic cardiovascular disease) Peripheral vascular disease (CMS/HCC) Essential hypertension Hyperlipidemia, unspecified hyperlipidemia type Other specified diabetes mellitus without complication, without long-term current use of insulin (CMS/HCC) Expected: 06/18/2023 (Approximate), Expires: 06/18/2024 [facility] Work Phone: Comment on above: Expected: 06/18/2023 (Approximate), Expi res: 06/18/2024 Start: 06-18-2023 End: 06-18-2024 CBC panel - Blood by Automated count CBC Lab Routine ASCVD (arteriosclerotic cardiovascular disease) Peripheral vascular disease (CMS/HCC) Essential hypertension Hyperlipidemia, unspecified hyperlipidemia type Other specified diabetes mellitus without complication, without long-term current use of insulin (CMS/HCC) Expected: 06/18/2023 (Approximate), Expires: 06/18/2024 [facility] Work Phone: Comment on above: Expected: 06/18/2023 (Approximate), Expi res: 06/18/2024 Start: 06-18-2023 End: 06-18-2024 Lipid 1996 panel - Serum or Plasma Lipid Panel Lab Routine ASCVD (arteriosclerotic cardiovascular disease) Peripheral vascular disease (CMS/HCC) Essential hypertension Hyperlipidemia, unspecified hyperlipidemia type Other specified diabetes mellitus without complication, without long-term current use of insulin (CMS/HCC) Expected: 06/18/2023 (Approximate), Expires: 06/18/2024 [facility] Work Phone: Comment on above: Expected: 06/18/2023 (Approximate), Expi res: 06/18/2024 Start: 06-18-2023 FUV, Provider: Jade Gale, Status: Pen, Time: 9:00 AM FUV, Provider: Jade Gale, Status: Pen, Time: 9:00 AM [facility] Work Phone: Start: 05-13-2023 Glaucoma screening [facility] Start: 01-16-2023 COVID-19 Vaccine ( season) COVID-19 Vaccine () [facility] Start: 01-16-2023 COVID-19 Vaccine () COVID-19 Vaccine () [facility] Start: 01-16-2023 COVID-19 Vaccine () COVID-19 Vaccine () [facility] Start: 01-05-2023 AOILIVC, Provider: CECILIA CAMPBELL ULTRASOUND 01,[id number], Status: Pen, Time: 7:45 AM AOILIVC, Provider: CECILIA MICHAELI ULTRASOUND 01,[id number], Status: Pen, Time: 7:45 AM [facility] Work Phone: Start: 10-08-2022 FUV, Provider: Jade Gale, Status: Pen, Time: 8:40 AM FUV, Provider: Jade Gale, Status: Pen, Time: 8:40 AM [facility] Work Phone: Start: 02-04-2022 FUV, Provider: Jade Gale, Status: Pen, Time: 8:30 AM FUV, Provider: Jade Gale, Status: Pen, Time: 8:30 AM [facility] Work Phone: Start: 2015 RSV High Risk: (Elderly (60+) or Population) (1 - Risk 60-74 years 1-dose series) RSV High Risk: (Elderly (60+) or Population) (1 - Risk 60-74 years 1-dose series) [facility] Start: 10-19-2000 Screening for malignant neoplasm of colon Colon Cancer Screening 5 Year [facility]igmoid[facility] Start: 10-19-1973 Adult BMI Follow Up Plan Adult BMI Follow Up Plan [facility] Start: 10-19-1973 Hepatitis C screening Hepatitis C Screening [facility] Start: 10-19-1965 Diabetic foot examination Diabetes: Foot Exam [facility] Start: 10-19-1965 Glaucoma screening Diabetes: Retinopathy Screening [facility] Start: 1955 Hemoglobin A1c measurement Diabetes: Hemoglobin A1C [facility] Start: 1955 Lipid panel Lipid Panel [facility] Start: 1955 Medicare Annual Wellness Visit Medicare Annual Wellness Visit (AWV) [facility] Start: 1955 Screening for malignant neoplasm of colon [facility] End: 02-28-2025 Basic metabolic 2000 panel - Serum or Plasma Basic Metabolic Panel Lab Routine Essential hypertension 1 Occurrences starting 02/29/2024 until 02/28/2025 [facility] Comment on above: 1 Occurrences starting 02/29/2024 until 02/28/2025 End: 02-28-2025 CBC panel - Blood by Automated count CBC Lab Routine Normocytic normochromic anemia 1 Occurrences starting 02/29/2024 until 02/28/2025 [facility] Comment on above: 1 Occurrences starting 02/29/2024 until 02/28/2025 End: 02-28-2025 Hemoglobin A1c/Hemoglobin.total in Blood Hemoglobin A1c Lab Routine Type 2 diabetes mellitus with diabetic polyneuropathy, without long-term current use of insulin ([facility]) 1 Occurrences starting 02/29/2024 until 02/28/2025 [employer] Work Phone: Comment on above: 1 Occurrences starting 02/29/2024 until 02/28/2025 Immunizations Immunization Date Immunization Notes Care Provider Rahel rice 02-05-2023 Influenza, High-dose , Quadrivalent [facility] 02-05-2023 influenza virus vacc ine, unspecified formulation Josh Ospina DO Work Phone: [facility] [employer] [facility] 04-14-2022 pneumococcal conjuga te vaccine, 13 valent [facility] [employer] [facility] 04-14-2022 Prevnar 20 0.5 ML Intramuscular Suspension Prefilled Syringe Josh Ospina Work Phone: [facility] Work Phone: 02-18-2021 Pfizer-BioNTech COVI D-19 Vacc 30 MCG/0.3ML Intramuscular Suspension Josh Ospina Work Phone: [facility] 08-08-2020 Pfizer-BioNTech COVI D-19 Vacc 30 MCG/0.3ML Intramuscular Suspension Josh Daileyng Work Phone: [facility] [address] DO Work Phone: 08-05-2020 Pfizer Purple Cap SARS-CoV-2 Jade Gale MD Work Phone: [facility] Work Phone: 07-18-2020 Moderna COVID-19 Vac cine 100 MCG/0.5ML Intramuscular Suspension Josh [facility]ina [facility]: [facility] Work Phone: 07-18-2020 Tvoop COVI D-19 Vacc 30 MCG/0.3ML Intramuscular Suspension Josh Bermudezng Work Phone: [facility] Work Phone: 07-16-2020 COVID-19, mRNA, LNP- S, PF, 30mcg/0.3mL Dose [facility] 05-08-2020 pneumococcal polysaccharide vaccine, 23 valent Josh Sanchez [employer] Work Phone: [facility] 02-16-2020 influenza virus vacc ine, unspecified formulation Josh Sanchez [employer] Work Phone: [facility] [employer] DO Work Phone: 02-16-2020 influenza, injectabl e, quadrivalent, preservative free Jade Gale MD Work Phone: [facility] Work Phone: 02-16-2020 influenza, seasonal, injectable [facility] 06-29-2019 zoster vaccine recombinant Josh Sanchez ENOVIX Work Phone: [facility] [employer] DO Work Phone: 04-28-2019 zoster vaccine recombinant Josh Sanchez [employer] Work Phone: [facility] [employer] DO Work Phone: 03-18-2019 influenza virus vacc ine, unspecified formulation Josh Sanchez [employer] Work Phone: [facility] [employer] DO Work Phone: 03-18-2019 influenza, seasonal, injectable [facility] 03-02-2019 influenza, injectabl e, quadrivalent, contains preservative Josh G [employer] Work Phone: [place] [address] DO Work Phone: 04-13-2018 Influenza, injectabl e, Madin Myla Canine Kidney, preservative free, quadrivalent Josh G Furlong Work Phone: [place] [address] DO Work Phone: 03-18-2018 influenza virus vacc ine, unspecified formulation Josh G Furlong Work Phone: [place] [address] DO Work Phone: 04-20-2017 influenza, injectabl e, quadrivalent, preservative free Josh G Furlong Work Phone: [place] [address] DO Work Phone: 03-31-2017 influenza, injectabl e, quadrivalent, preservative free Josh G [place] Work Phone: [place] [address] DO Work Phone: 03-26-2017 influenza virus vacc ine, unspecified formulation [facility] 03-18-2017 influenza virus vacc ine, unspecified formulation Josh G Furlong Work Phone: [place] [address] DO Work Phone: 02-16-2016 influenza virus vacc ine, unspecified formulation Josh G Furlong Work Phone: [place] [address] DO Work Phone: 03-18-2015 influenza, seasonal, injectable Josh G Furlong Work Phone: [place] [address] DO Work Phone: 02-15-2015 influenza virus vacc ine, unspecified formulation Josh G Furlong Work Phone: [place] [address] DO Work Phone: 07-04-2014 pneumococcal conjuga te vaccine, 13 valent Josh Bermudezng Work Phone: [place] [address] DO Work Phone: 07-04-2014 tetanus toxoid, redu leonel diphtheria toxoid, and acellular pertussis vaccine, adsorbed Josh Sanchez [employer] Work Phone: [place] [address] DO Work Phone: 02-22-2014 influenza virus vacc ine, whole virus Josh Bermudezng Work Phone: [place] [address] DO Work Phone: 07-18-2013 influenza virus vacc ine, unspecified formulation Josh [employer] Work Phone: [place] [address] DO Work Phone: 05-18-2011 influenza virus vacc ine, unspecified formulation [facility] 03-18-2011 influenza virus vacc ine, unspecified formulation [facility] 05-18-2009 influenza virus vacc ine, unspecified formulation [facility] 03-18-2009 influenza virus vacc ine, unspecified formulation Josh Bermudezng Work Phone: [place] [address] DO Work Phone: influenza virus vacc ine, unspecified formulation Josh Bermudezng Work Phone: [place] [address] DO Work Phone: Comment on above: [id number] [id number] Payers Date Payer Category Payer Self-pay [id number] 2022 Unknown 2020 Medicare [id number] 2020 Medicare [id number] 1959 Medicare [id number] 1959 Self-pay [id number] 1959 Unknown [id number] 1955 Unknown [id number] 2.16. [id number] 1955 Unknown [id number] 2.16. 840.1.277159.3.579.2.356 1955 Unknown [id number] 2.16.84 0.1.383407.3.579.2.593 1955 Unknown [id number] 2.16.84 0.1.409604.3.579.2.593 1955 Unknown [id number] 2.16.84 0.1.098808.3.579.2.593 1955 Unknown [id number] 2.16.84 0.1.166060.3.579.2.593 1955 Unknown [id number] 2.16.84 0.1.502598.3.579.2.593 1955 Unknown [id number] 2.16.84 0.1.254574.3.579.2.593 1955 Unknown [id number] 2.16.84 0.1.836186.3.579.2.593 1955 Unknown [id number] 2.16.84 0.1.867531.3.579.2.593 1955 Unknown [id number] 2.16.8 40.1.678255.3.579.2.1068 1955 Unknown [id number] 2.16.8 40.1.540510.3.579.2.1286 1955 Unknown [id number] 2.16.840 .1.754065.3.579.2.1286 1955 Unknown [id number] 2.16.8 40.1.375471.3.579.2.727 1955 Unknown [id number] 2.16.8 40.1.079219.3.579.2.727 1955 Unknown [id number] 2.16.8 40.1.592547.3.579.2.727 1955 Unknown [id number] 2.16.8 40.1.994688.3.579.2.727 1955 Unknown [id number] 2.16.8 40.1.662721.3.579.2.727 1955 Unknown [id number] 2.16. 840.1.251989.3.579.2.1244 1955 Unknown [id number] 2.16.8 40.1.040572.3.579.2.1244 1955 Unknown [id number] 2.16.8 40.1.928434.3.579.2.727 1955 Unknown [id number] 2.16.8 40.1.244646.3.579.2.727 1955 Unknown [id number] 2.16.8 40.1.398133.3.579.2.727 Unknown [id number] 2.16.8 40.1.621557.3.579.2.531 Unknown [id number] 2.16.8 40.1.215564.3.579.2.531 Social History Date Type Detail Facility Start: 05-26-2023 End: 03-22-2024 Alcohol use Alcohol use -[facility] [address] DO Work Phone: Comment on above: 1-2 cups of coffee d aily; Start: 05-26-2023 End: 03-22-2024 Sex Assigned At [facility] [employer] Other Start: 04-08-2019 End: 05-26-2023 Tobacco smoking status NJIS Ex-smoker (finding) [facility] Start: 1955 Sex Assigned At Male [facility] Start: 03-19-1974 End: 05-09-1996 History of tobacco use Current smoker [facility] Work Phone: Start: 03-19-1974 End: 05-09-1996 History of tobacco use Cigarette Smoker [facility] Work Phone: Start: 03-19-2022 End: 05-26-2023 Tobacco use and exposure Smokeless tobacco non-user [facility] Work Phone: Start: 06-18-2023 End: 03-22-2024 Alcohol intake Current drinker of alcohol (finding) [facility] Work Phone: Start: 1955 Sex Assigned At Not on file [facility] Work Phone: Start: 06-08-2023 End: 03-22-2024 Exposure to SARS-CoV-2 (event) Not sure [facility] Has the evidanza, or [employer] threatened to shut off services in your home in past 12Mo No [facility] Do you belong to any clubs or organizations such as sikh groups, unions, fraternal or athletic groups, or school groups? Yes [facility] Are you now , , , , never or living with a partner? [facility] How often to you hav e a drink containing alcohol? 4 or more times a week [facility] How many standard dr inks containing alcohol do you have on a typical day? 1 or 2 [facility] How often do you hav e 6 or more drinks on 1 occasion? Less than monthly [facility] How hard is it for y ou to pay for the very basics like food, housing, medical care, and heating Not hard at all [facility] Do you feel stress - tense, restless, nervous, or anxious, or unable to sleep at night because your mind is troubled all the time - these days [OSQ] Not at all [facility] Start: 03-20-2022 Alcohol Comment Occasional [facility] How hard is it for y ou to pay for the very basics like food, housing, medical care, and heating Not very hard [facility] [employer] Start: 03-27-2022 Tobacco smoking stat NHIS Never smoked tobacco (finding) [facility] Medical Equipment Procedure Code Equipment Code Equipment Origin al Text Equipment Identifier Dates Accu-Chek Carley Plus test strips TEST ONCE DAILY [id number] End: 06-29-2023 Accu-Chek Fastcl ix Lancet Drum USE ONCE DAILY DIRECTED [id number] End: 06-29-2023 Accu-Chek FastCl ix Lancing Device [id number] End: 07-02-2023 Accu-Chek Carley Plus test strips TEST ONCE DAILY [id number] Start: 06-29-2023 End: 07-02-2023 Accu-Chek Fastcl ix Lancet Drum USE ONCE DAILY DIRECTED [id number] Start: 06-29-2023 End: 07-02-2023 Accu-Chek Carley Plus test strips TEST ONCE DAILY [id number] Start: 07-03-2023 Accu-Chek Fastcl ix Lancet Drum USE ONCE DAILY DIRECTED [id number] Start: 07-03-2023 Accu-Chek FastCl ix Lancing Device [id number] Start: 07-03-2023 Accu-Chek Carley Plus test strips TEST ONCE DAILY [id number] Start: 07-03-2023 Accu-Chek Fastcl ix Lancet Drum USE ONCE DAILY DIRECTED [id number] Start: 07-03-2023 Clinical Notes 07-24-2021 to 03-22-2024 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 with previous CARROTER the right SFA 2008, currently has stable [...] discussion and plan. documented in this encounter [facility] Work Phone: 03-22-2024 Instructions Buffy Funez [...] work Follow up documented in this encounter [facility] Work Phone: 02-29-2024 Miscellaneous Notes PATIENT IS COMING IN 12/16 AND WOULD LIKE [facility] AND THANKK YOU documented in this encounter [facility] 02-29-2024 Telephone encounter Note PATIENT IS COMING IN 05/02 AND WOULD LIKE [facility]S [facility]ENT TO [facility] AND THANKK YOU [facility] 12-28-2023 Note Patient Education Urology Hypogonadism, Male [...] Follow these instructions at home: ? Take [id number] and prescription medicines only as told by [...] provider. Document Revised: (more content not included)... [facility] 07-02-2023 Miscellaneous Notes Pt called and needs all GULOSE TESTING supplies sent to [facility] due to medicare only covering them from there. documented in this encounter [facility] 07-02-2023 Telephone encounter Note Pt called and needs all GULOSE TESTING supplies sent to [facility] due to medicare only covering them from there. [facility] 07-01-2023 Miscellaneous Notes Pt called yaritza cedeno [...] was going on documented in this encounter [facility] 07-01-2023 Telephone encounter Note Pt called yaritza aid called him stated his insurance is not covering his lancets or strips there wanted to know if you could point him in the right direction as he is not sure [employer] 07-01-2023 Telephone encounter Note It sounds like a formulary issue. They should cover some type of glucometer and test strips. Have him check his formulary and see which brand is covered and then let us know. [facility] [employer] 07-01-2023 Telephone encounter Note He did say when he got home he was going to call his insurance and see what was going on [facility] [employer] 06-25-2023 History of Present illness Narrative Subjective Patient ID: Mike Florentino is a 67 y.o. male. Mike presents today to discuss several issues regarding his medications. He had labs done ordered by the unit coordinator at another facility and is here to [...] April 08, [address] Adames in [place] and it was normal. He has been getting pain in his thighs lately. His unit coordinator told him it was probably his circulation [...] polyneuropathy, without long-term current use of insulin ([facility]) We discussed his medications. He would [...] is aware of that. Peripheral vascular disease ([facility]) Follow-up with cardiology as directed. Controlling risk factors are important. His lipids and CMP were essentially at goal. documented in this encounter [employer] 06-18-2023 History of Present illness Narrative Subjective 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 with previous CARROTER the right SFA 2008, currently has stable [...] which came back normal Jade Gale MD, [facility] Review of Systems All other systems [...] Jade Gale MD. documented in this encounter [facility] Work Phone: 06-18-2023 Instructions Willian Sumner [...] of your visit. documented in this encounter [facility] Work Phone: 03-27-2022 Evaluation note Encounter [...] sleepiness, or poor response to treatment. . [employer] Other 03-09-2022 NotePROCEDURE: XR KNEE RT 4V [...] Electronically authenticated by: EILEEN QURESHI Date: 2021-07-24 17:01[place] [facility] noteNo assessment information availableMer[facility] Work Phone: Evaluation note* Diagnosis ASCVD (arteriosclerotic cardiovascular disease)- Primary Unspecified cardiovascular disease Peripheral vascular disease (CMS/HCC) Unspecified peripheral vascular disease Essential hypertension Unspecified essential hypertension Hyperlipidemia, unspecified hyperlipidemia type Other specified diabetes mellitus without complication, without long-term current use of insulin ([facility]) Former smoker Personal history of tobacco use, presenting hazards to health Overweight documented in this encounter [facility] Work Phone: Evaluation note* Diagnosis Type 2 diabetes mellitus with diabetic polyneuropathy, without long-term current use of insulin ([facility])- Primary Normocytic normochromic anemia Unspecified anemia Peripheral vascular disease ([facility]) Unspecified peripheral vascular disease Thrombocytopenia ([facility]) Unspecified thrombocytopenia documented [facility]* Diagnosis Type 2 diabetes mellitus with diabetic polyneuropathy, without long-term current use of insulin ([facility])- Primary documented in this [facility]* Diagnosis Type 2 diabetes mellitus with diabetic polyneuropathy, without long-term current use of insulin ([facility])- Primary documented [facility]* Diagnosis Normocytic normochromic anemia- Primary Unspecified anemia Type 2 diabetes mellitus with diabetic polyneuropathy, without long-term current use of insulin ([facility]) Essential hypertension Unspecified essential hypertension documented [facility]* Diagnosis ASCVD (arteriosclerotic cardiovascular disease)- Primary Unspecified cardiovascular disease Peripheral vascular disease ([facility]) Unspecified peripheral vascular disease Essential hypertension [...] stated as uncontrolled documented in this encounter [facility] Work Phone: History general Narrative - Reported* Type Description Date Medical History ROCK (obstructive sleep apnea) Medical History CAD in [place] artery Surgical History heart stent Surgical History left hip replacement [employer] Other InstructionsNot on filedocumented in this encounter [facility] [employer] SystemInstructionsNot on filedocumented in this encounter [facility] filedocumented in [facility]Not on filedocumented in this encounter [facility] System[facility]ructionsNot on filedocumented in this encounter [facility] SystemInstructionsNot on filedocumented in this encounter [facility] SystemReason for referral (narrative)* Consultation (Routine) - Authorized Specialty Diagnoses / Procedures Referred By Contyulisa t Referred To Contact Cardiology Diagnoses ASCVD (arteriosclerotic cardiovascular disease) Peripheral vascular disease (CMS/HCC) Essential hypertension Hyperlipidemia, unspecified hyperlipidemia type Other specified diabetes mellitus without complication, without long-term current use of insulin (CMS/HCC) Procedures Follow Up In Cardiology Jade Gale MD [address] [place] [address] [address], [address] [address] Jade Gale MD [address] [place] [address] [address], [address] [address] Referral ID Status Reason Start Date Expiration Date V isits Requested Visits Authorized [id number] Authorized 06/18/2023 06/17/2024 1 1 [facility] Work Phone: Summary Purpose Family History [...] with tobacco use. He has had previous CARROTER of the femoral arteries in the past. 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 with previous CARROTER the right SFA 2008, currently has stable [...] which is scheduled * Jade Gale MD, [facility] Additional Source Comments (unrecognized sect ion and content) No Status Records FoundNo Status Records FoundNo Status Records FoundNo Status Records FoundNo Status Records FoundNo Status Records FoundNo Status Records FoundNo Status Records FoundNo Status Records FoundNo Status Records Found INFORMATION SOURCE (unrecogn ized section and content) DATE CREATED AUTHOR 11/06/2017 Donna wong DATE CREATED AUTHOR AUTHOR'S ORGANIZ ATION 02/16/2022 [facility] DATE CREATED AUTHOR AUTHOR'S ORGANIZ ATION 02/16/2022 [employer] DATE CREATED AUTHOR AUTHOR'S ORGANIZ ATION 05/08/2022 [facility] DATE CREATED AUTHOR AUTHOR'S ORGANIZ ATION 01/07/2023 [facility] DATE CREATED AUTHOR AUTHOR'S ORGANIZ ATION 03/25/2023 [facility] DATE CREATED AUTHOR AUTHOR'S ORGANIZ ATION 06/29/2023 [facility] DATE CREATED AUTHOR AUTHOR'S ORGANIZ ATION 03/10/2024 [facility] DATE CREATED AUTHOR AUTHOR'S ORGANIZ ATION 03/23/2024 [facility] DATE CREATED AUTHOR AUTHOR'S ORGANIZ ATION 04/07/2024 [facility] Care Teams (unrecognized sec tion and [...] Active Aryan Garcia MD Attending Provider Active Materials Handling Coordinator Relationship Specialty Start Date End Date Josh Ospina DO [address] [place] [address] PCP - General 05/18/99 Materials Handling Coordinator Relationship Specialty Start Date End Date Josh Ospina DO [address] [place] [address] PCP - General Family Medicine 03/19/22 Materials Handling Coordinator Relationship Specialty Start Date End Date Josh Ospina DO [address] [place] [address] PCP - General Family Medicine 03/19/22 Materials Handling Coordinator Relationship Specialty Start Date End Date Josh Ospina DO [address] [place] [address] PCP - General Family Medicine 03/19/22 Materials Handling Coordinator Relationship Specialty Start Date End Date Josh Ospina DO [address] [place] [address] PCP - General Family Medicine 03/19/22 Materials Handling Coordinator Relationship Specialty Start Date End Date Josh Ospina DO [address] [place] [address] PCP - General Family Medicine 03/19/22 Materials Handling Coordinator Relationship Specialty Start Date End Date Josh Ospina DO [address] [place] [address] PCP - General Family Medicine 03/19/22 Materials Handling Coordinator Relationship Specialty Start Date End Date Josh Ospina DO [address] [place] [address] PCP - General Family Medicine 03/19/22 Materials Handling Coordinator Relationship Specialty Start Date End Date Josh Ospina DO PCP - General 05/18/99 Goals (unrecognized section and content) Goals may be documented in a n alternate section Reason for Visit (unrecogniz ed section and content) Reason Comments Follow-up 9 months Specialty Diagnoses / Procedures Referred By Contyulisa t Referred To Contact Cardiology Diagnoses ASCVD (arteriosclerotic cardiovascular disease) Peripheral vascular disease ([facility]) Essential hypertension Hyperlipidemia, unspecified hyperlipidemia type Other specified diabetes mellitus without complication, without long-term current use of insulin Procedures Follow Up In Cardiology Jade Gale MD [address] [address], [address] [address] Phone: tel: fax: Jade Gale MD [address] [facility] [address], [address] [address] Phone: tel: fax: Referral ID Status Reason Start Date Expiration Date V isits Requested Visits Authorized [id number] Authorized 06/18/2023 06/17/2024 1 Reason Onset Date [...] BE BASED ON THE PRIMARY CLINICAL RECORDS. [employer] [facility]. provides no warranty or guarantee of the accuracy or completeness of information in this document.
[2024-04-18 11:13] LABS: Estimated Average Glucose 146 mg/dL; Glycohemoglobin A1C 6.7 % (4.5-6.2)
== END 2024-04-18 07:50 | disposition home or self-care (01) ==
LOC: LAB 07:51
PROVIDERS: PCP Family Medicine; Visit Provider Family Medicine
DX: D64.9 Anemia, unspecified (principal); I10 Essential (primary) hypertension; E11.42 Type 2 diabetes mellitus with diabetic polyneuropathy
CPT/HCPCS: 36415; 83036

== ENCOUNTER 2024-05-05 07:22 | Outpatient (OUT) | payer MEDICARE, OTHER, SELFPAY ==
--- OUTSIDE RECORDS SUMMARY | 2024-05-05 07:26 | XMS_ITS | CCD ---
Author Organization [facility] CliniSynv Care Team Providers Care Recycling Worker Name Role Phone EILEEN PURVIS Unavailable Unavai labJOSH Duong Unavailable Unavailable Laralogregg, Josh Sanchez Unavailable Unavailable Unavailable Unavailable Unavailable Baljinder, Dr. Jade Sanz Attending Shantel vailable Josh Ospina Primary Care Unavailab clau Gale, Dr. Jade Sanz Referring Shantel vailable [place] Josh Willy Primary Care Unavailab clau Gale, Dr. Jade Sanz Referring Shantel vailable Gale, Dr. Jade Sanz Attending Shantel vailable Aryan Garcia Unavailable DO Josh Ospina Primary Care Provider MD Aryan Garcia Attending Provider [phone] DR SHADY MOHAN Attending Unavailable JANELL, DR JOSH Sanchez Primary Care Unavailable FURLONG, DR JOSH Sanchez Consulting Unavailable JAMSHID, DR CARUSO Admitting Unavailable JAMSHID, DR CARUSO Consulting Unavailable FURLONG, DR JOSH Sanchez Primary [...] Care Unavailable Aryan Garcia Admitting Unavailable Furlong DOJosh Primary Care Provider Furlong DO, Josh Sanchez Primary Care Provider [phone] Furlong DOJosh Primary Care Provider JADE GALE Attending Unavailable FURLONG, JOSH AGUILERA Primary Care Unavailab le GALEJADE MONREAL Attending Unavailable GALEJADE MONREAL Referring Unavailable FURLONG, JOSH AGUILERA Primary Care Unavailab le VINNYNGJOSH Attending Unavailable FURLONG, JOSH Sanchez Referring Unavailable FURLONG, JOSH Sanchez Primary Care Unavailable FURLONG, JOSH Sanchez Attending Unavailable FURLONG, JOSH Sanchez Referring Unavailable FURLONG, JOSH Sanchez Primary Care Unavailable FURLONG, JOSH Sanchez Attending Unavailable FURLONG, JOSH Sanchez Referring Unavailable FURLONG, JOSH Sanchez Primary Care Unavailable MOHANShady Attending Unavailable MOHAN, Shady Rizo Attending Unavailable LuJosseline mantilla. Attending Unavailable MOHAN, Shady Rizo Admitting Unavailable MOHAN, Shady Rizo Attending Unavailable MOHAN, Shady Rizo Attending Unavailable MOHAN, Shady R Attending Unavailable MOHAN, Shady Rizo Admitting Unavailable MOHAN, Shady R Attending Unavailable MOHAN, Shady R Attending Unavailable MOHAN, Shady Rizo Attending Unavailable MOHAN, Shady R Attending Unavailable Shady MOHAN Attending Unavailable Allergies Allergy Classification Reported Allergen(s) Allergy Type Date of Onset Reaction(s) Facility (17 sources) Ticagrelor; Translations: [Brilinta TABS] Drug Allergy 2 [facility] (2 sources) Ticagrelor; Translations: [TICAGRELOR] Drug Allergy 2 [place] [address] Repository (2 sources) Bee/Wasp/Ant venom; Translations: [Bee Stings] Propensity to adverse reactions (disorder) [facility] Repository (2 sources) No Known Medication Allergies; Translations: [No Known Medication Allergies] Propensity to adverse reactions (disorder) [facility] Repository Medications Current Medications Medication Drug [...] Aspirin Active clopidogrel 75 mg oral tablet (20 sources) P2Y12 Platelet Inhibitor Start: 04-08-2019 End: 01-11-2025 take 1 tablet by mouth in the morning clopidogreL (PLAVIX) 75 mg tablet Take 1 tablet (75 mg total) by mouth in the morning. 03/07/2022 Active Clopidogrel Bisu lfate Active dapagliflozin 10 mg oral tablet (9 sources) Sodium-Glucose Cotransporter 2 Inhibitor Start: 06-26-2023 take 1 tablet by mouth in the morning dapagliflozin propanediol (FARXIGA) 10 mg tablet Take 1 tablet (10 mg total) by mouth in the morning. 30 tablet 5 01/12/2024 Active empagliflozin 10 mg oral tablet (6 sources) Sodium-Glucose Cotransporter 2 Inhibitor Start: 06-15-2020 End: 06-18-2023 take 1 tablet by mouth once daily empagliflozin (Jardiance) 10 mg Take 1 tablet (10 mg) by mouth once daily. 0 06/15/2020 06/18/2023 Discontinued (Therapy completed) fluticasone propionate 0.05 mg/actuat metered dose nasal spray (10 sources) Corticosteroid fluticasone propionate (FLONASE) 50 mcg/actuation [...] e hydroxychloroquine sulfate 200 mg oral tablet (19 sources) Antimalarial, Antirheumatic Agent Start: 04-08-2019 take 1 tablet by mouth in the morning, then take 1 tablet by mouth at bedtime hydrOXYchloroQUINE (PLAQUENIL) 200 mg tablet Take 1 tablet (200 mg total) by mouth in the morning and 1 tablet (200 mg total) before bedtime. 03/01/2022 Active meloxicam 7.5 mg oral tablet (2 sources) Nonsteroidal Anti-inflammatory Drug Start: 02-16-2024 take 1 tablet by mouth in the morning meloxicam (MOBIC) 7.5 mg tablet Take 1 tablet (7.5 mg total) by mouth in the morning. 02/16/2024 Active metFORMIN hydrochloride 500 mg oral tablet (20 sources) Biguanide Start: 04-24-2024 take 2 tablets by mouth twice daily at mealtime metFORMIN (GLUCOPHAGE) 500 mg tablet TAKE 2 TABLETS BY MOUTH TWICE DAILY WITH FOOD 360 tablet 04/24/2024 Active Start: 03-13-2020 End: 04-24-2024 take 2 tablets by mouth twice daily at mealtime metFORMIN (GLUCOPHAGE) 500 mg tablet take 2 tablets by mouth twice a day with food 360 tablet 3 04/21/2023 04/24/2024 Discontinued Start: 04-08-2019 take 500 mg by mouth twice naldo ly Metformin Active 500 MG PO Twice daily April 08, 2019 12:00am Metformin Active nitroglycerin 0.4 mg sublingual tablet (10 sources) Nitrate Vasodilator nitroglyceri n (NITROSTAT) 0.4 MG SL tablet nitroglycerin 0.4 mg sublingual tablet Active ramipril 10 mg oral capsule (20 sources) Angiotensin Converting Enzyme Inhibitor Start: 04-08-20 take 1 capsule by mouth in the morning ramipriL (ALTACE) 10 mg capsule Take 1 capsule (10 mg total) by mouth in the morning. 02/22/2022 Active Ramipril Active rosuvastatin calcium 10 mg oral tablet (20 sources) HMG-CoA Reductase Inhibitor Start: 04-08-2019 take 1 tablet by mouth at bedtime rosuvastatin (CRESTOR) 10 mg tablet rosuvastatin 10 mg tablet take 1 tablet by mouth at bedtime 05/04/2023 Active Rosuvastatin Sabino cium Active Crestor Not-Taki ng sildenafil 100 mg oral tablet (17 sources) Phosphodiesterase 5 Inhibitor si ldenafiL (VIAGRA) 100 mg tablet sildenafil 100 mg tablet Active End: 06-18-2023 sildenafil (Revatio) 20 mg t ablet Take 1 tablet (20 mg) by mouth if needed. 0 06/18/2023 Discontinued (Therapy completed) Sildenafil Citra te TABS as needed Quantity: 0 Refills: 0 Ordered: 23-Apr-2021 DO Active SITagliptin 100 mg oral tablet (20 sources) Dipeptidyl Peptidase 4 Inhibitor Start: 01-06-2024 take 1 tablet by mouth once daily SITagliptin phosphate (JANUVIA) 100 mg tablet take 1 tablet by mouth once daily 90 tablet 1 01/06/2024 Active Start: 04-08-2019 End: 06-23-2023 take 1 tablet [...] g tamsulosin hydrochloride 0.4 mg oral capsule (17 sources) alpha-Adrenergic Fani Start: 07-10-2020 take 1 capsule by mouth once daily tamsulosin (Flomax) 0.4 mg 24 hr capsule Take 1 capsule (0.4 mg) by mouth once daily. 07/10/2020 Active 1 ml testosterone cypionate 200 mg/ml injection (20 sources) Androgen Start: 12-28-2023 testosterone cypionate (Depo-Testosterone) 200 mg/mL injection INJECT 300 mg (1.5 ml) INTRAMUSCULARLY EVERY FOUR weeks 12/28/2023 Active Start: 03-17-2022 End: 05-02-2024 testosterone (ANDROGEL) 20.2 5 mg/1.25 gram (1.62 %) gel in metered-dose pump 03/17/2022 05/02/2024 Discontinued (Therapy completed) Start: 08-17-2020 End: 03-22-2024 testosterone 20.25 mg/1.25 [...] hydrochloride 240 mg extended release oral tablet (20 sources) Calcium Channel Fani Start: 04-08-2019 End: 06-18-2023 take 1 tablet by mouth in the morning verapamil SR (CALAN-SR) 240 mg CR tablet Take 1 tablet (240 mg total) by mouth in the morning. 02/20/2022 Active Verapamil HCl Ac tive Completed/Discontinued Medications Medication Drug Class(es) Dates Sig (Normalized) Sig (Original) canagliflozin 300 mg oral tablet (3 sources) Sodium-Glucose Cotransporter 2 Inhibitor Start: 06-22-2023 End: 06-26-2023 take 1 tablet by mouth in the morning canagliflozin (INVOKANA) 300 mg tablet Indications: Type 2 diabetes mellitus with diabetic polyneuropathy, without long-term current use of insulin ([facility]) Take 1 tablet (300 mg total) [...] Documented Date Episodic/Chronic Coagulation and hemorrhagic disorders (10 sources) Thrombocytopenic disorder; Translations: [Thrombocytopenia, unspecified] Onset: 06-25-2023 06-25-2023 Chronic Coronary atherosclerosis and other heart disease (20 sources) Arteriosclerotic vascular disease; Translations: [Cardiovascular disease, unspecified] Onset: 03-19-2022 06-18-2023 Chronic Deficiency and other anemia (1 source) Anemia; Translations: [Anemia, unspecified] Onset: 06-19-2023 06-19-2023 Episodic Diabetes mellitus with complications (17 sources) Type 2 diabetes mellitus with diabetic [...] hypertension] Onset: 07-16-2021 Chronic Hyperplasia of prostate (15 sources) Benign prostatic hyperplasia with lower urinary tract symptoms; Translations: [Benign prostatic hypertrophy with outflow obstruction] Onset: 12-31-2016 Chronic Osteoarthritis (1 source) Primary generalized (osteo)arthritis; Translations: [PRIMARY GENERALIZED OSTEOARTHRITIS] Onset: 07-16-2021 Chronic Other and unspecified benign neoplasm (1 source) Tubular adenoma of colon; Translations: [Tubular adenoma of colon] Episodic Other connective tissue disease (1 source) Muscle pain; Translations: [Myalgia, unspecified site] 05-02-2024 Episodic Other endocrine disorders (5 sources) Testicular hypofunction; Translations: [TESTICULAR HYPOFUNCTION] Onset: 10-26-2021 Chronic Other male genital disorders (11 sources) Male erectile dysfunction, unspecified; Translations: [Impotence of organic origin] Onset: 10-29-2021 03-19-2022 Chronic Other nutritional; endocrine; and metabolic disorders (10 sources) Obesity; Translations: [Obesity, unspecified] Onset: 03-19-2022 Resolved: 03-19-2022 03-19-2022 Chronic Other nutritional; endocrine; and metabolic disorders (1 source) Obesity caused by energy imbalance; Translations: [Class 1 obesity due to excess calories with serious comorbidity and body mass index (BMI) of 30.0 to 30.9 in adult] 05-02-2024 Chronic Other nutritional; endocrine; and metabolic disorders (7 sources) Overweight in adulthood with body mass index of 25 or more but less than 30; Translations: [Overweight] Onset: 03-22-2024 03-22-2024 Episodic Other nutritional; endocrine; and metabolic disorders (3 sources) Body mass index (BMI) 29.0-29.9, adult; Translations: [Body mass index (BMI) 29.0-29.9, adult] Onset: 03-22-2024 Episodic Peripheral and visceral atherosclerosis (20 sources) Intermittent claudication; Translations: [Peripheral vascular disease, unspecified] Onset: 03-19-2022 Resolved: 05-04-2023 06-18-2023 Chronic Comment on above: Status post SFA clinton oplasty 2008; Residual codes; unclassified (7 sources) Sleep apnea; Translations: [Unspecified sleep apnea] Onset: 05-26-2023 05-26-2023 Chronic Residual codes; unclassified (13 sources) Obstructive sleep apnea syndrome; Translations: [Obstructive [...] (1 source) Hypothyroidism Onset: 05-04-2023 Chronic Unclassified (10 sources) Hypogonadism; Translations: [Hypogonadism] Onset: 10-06-2017 03-19-2022 Unclassified (1 source) dicuss medication Onset: 06-25-2023 Past or Other Problems Problem Classification Problem Date Documented Date Episodic/Chronic Deficiency and other anemia (11 sources) Normocytic normochromic anemia; Translations: [Anemia, unspecified] Onset: 06-19-2023 06-25-2023 Episodic Mood disorders (10 sources) Mood disorders Onset: 05-04-2023 Resolved: 05-02-2024 05-04-2023 Other aftercare (1 source) Other extermination supervisor (current) drug therapy; Translations: [OTH DETENTION CURRENT DRUG THERAPY] Onset: 07-16-2021 Episodic Other and unspecified benign neoplasm (10 sources) Tubular adenoma ; Translations: [Benign neoplasm, [...] Onset: 07-06-2017 Episodic Other connective tissue disease (10 sources) Right rotator cuff syndrome; Translations: [Unspecified rotator cuff tear or rupture of right shoulder, not specified as traumatic] Onset: 03-19-2022 03-19-2022 Episodic Other connective tissue disease (10 sources) Impingement syndrome of shoulder region; Translations: [Impingement syndrome of unspecified shoulder] Onset: 03-19-2022 03-19-2022 Episodic Other connective tissue disease (10 sources) Radial styloid tenosynovitis; Translations: [Radial styloid [...] conditions (not mental disorders or infectious disease) (16 sources) History of adenomatous polyp of colon; Translations: [Encounter for screening for malignant neoplasm of colon] Onset: 01-10-2022 04-08-2019 Episodic Screening and history of mental health and substance abuse codes (11 sources) Ex-smoker; Translations: [Personal history of tobacco use] Onset: 06-18-2023 06-18-2023 Episodic Unclassified (2 sources) Onset: 06-18-2023 Resolved: 03-22-2024 06-18-2023 Results Test Name Value Interpretation Reference Range Facility Lipid profileon 05-02-2024 External Cholesterol 135 [facility] External Hdl Cholesterol [address] [facility] External Ldl (Calc) 61 [facility] External Triglycerides 35 [facility] Urology Office/Clinic Noteon 05-02-2024 Urology Office/Clinic Note Urology Office/Clinic Note Chief Complaint f/u testosterone level HPI Staff 68yr old male pt here for 4mo f/u testosterone level check. Labs drawn at [facility] last week. Wants to discuss Flomax medication, and possibly switching due to side effects. Previous Dx: hypogonadism male, BPH with urinary obstruction, impotence *testosterone injection 300mg q4wks, tamsulosin 0.4mg bid, sildenafil 100mg PRN T Level: 10/28/22 - 06/19/23 - & 7.9 free 12/17/23 Dysuria: denies Incomplete bladder emptying: denies Hematuria: denies Frequency: 5-6x per day Urgency: denies Nocturia: at least 1x Stream: good stream during the day, at night has weak stream/dribbling Leaking: denies Post void dripping: yes, sometimes Wearing pads/ Depends: denies Urge incontinence: denies Stress incontinence: denies Incontinence without Sensory Awareness: denies Abdominal pain: denies Flank pain: denies Sexual complaints: pt has concerns about Flomax - states he is unable to ejaculate anymore, wonders if this is a side effect History of Present Illness Tests reviewed: UA, T level I have reviewed the previous health record [...] Physical Exam Vitals & Measurements T: 37 ???C(Oral) HR: 72(Peripheral) RR: 18 BP: 118/62 HT: 74 in HT: 188 cm WT: 96.1 kg WT: 211.864 lb BMI: 27.19 General Appearance: alert, no distress, well nourished, well developed male. Assessment/Plan 1. Hypogonadism male (E29.1: Testicular hypofunction) Testosterone (ref range 264-916): 04/26/22 - 229 10/28/22 - 377 06/19/23 - 329 & 7.9 free 12/17/23 - 04/04/24 - last inj 04/18/24 - HGB 12.5 L Stopped Androgel and started Testosterone IM 300 mg q4ks at prior OV. Waking occasionally with morning erections. Had labs drawn last wk at [facility], did not run. Cannot adjust dose since no recent level. Pt is due for his injection today. Will have pt receive inj today at same dosage and then get T level in the AM tomorrow. Follow up 6 mos with T level or sooner if needed. Pt understands and agrees with plan. -Receive injection today. -Get T level drawn tomorrow at [facility] (recalled). May adjust dose over the phone based on this level. 2. BPH with urinary obstruction (N40.1: Benign prostatic hyperplasia with lower urinary tract symptoms) PSA: 12/11/20 - 0.69 04/26/22 - 0.43 12/28/23 - 0.50 S/p Evolve of prostate 2009. UA neg. Taking Tamsulosin 0.4 mg bid. Feels he empties completely. Good stream. Does drink coffee which can cause irritation. 3. Impotence (N52.9: Male erectile dysfunction, unspecified) Sildenafil 100 mg prn. Follow-up With When Contact Information JAMSHID VILLAVICENCIO, Shady Rizo, URL [facility] [address], [place] [address]- Additional Instructions: 6 mos with T level Patient Education Hypogonadism, Male I, Kaia Valdez, personally scribed for Dr. Mohan on 05/02/2024 15:15:39. . Documentation recorded by the scribeKaia, accurately reflects the services(s) I performed and decisions made by me. Authenticated by Dr. Mohan on 05/02/2024 15:19:21. Problem List/Past Medical History Ongoing Arthritis BPH [...] Hernia repair, STENT INSERTION RIGHT LEG. Medications clopidogrel 75 mg Tab, 75 mg= 1 tab(s), Oral, Daily Crestor 10 mg Tab, 10 mg= 1 tab(s), Oral, Once a day (at bedtime) Depo-Testosterone 200 mg/mL intramuscular solution, 300 mg, IntraMuscular, q4wk Farxiga 10 mg oral tablet, See Instructions Flomax 0.4 mg Cap, 0.4 mg= 1 cap(s), Oral, BID, 3 refills gabapentin 300 mg Cap, 300 mg= 1 cap(s), Oral, Daily hydroxychloroquine 200 mg Tab, 200 mg= 1 tab(s) Januvia 100 (more content not included)... [facility] Comment on above: Result Comment: Elec tronically Signed By: Shady MOHAN MD\.br\Date and Time Signed: 05/02/24 15:19 EST\.br\Electronically Co-Signed By: Kaia Valdez\.br\Date and Time Co-Signed: 05/02/24 15:16 EST\.br\Electronically Co-Signed By: Kaia Valdez\.br\Date and Time Co-Signed: 05/02/24 15:16 EST Ambulatory Visit Summaryon 1 06-04-2023 Ambulatory Visit Summary Ambulatory Visit Summary MIKE FLORENTINO :1955 Visit Date:04/04/2024 Ambulatory Visit Instructions Your Diagnosis Hypogonadism male Your Care Team Attending Physician - Shady MOHAN MD Primary Care Physician - JOSH [...] VILLAVICENCIO, Shady Rizo Where: [facility] of [address] [place] [address]- Medications What How Much When Instructions Unchanged [...] you for choosing us for your care. [facility] Ambulatory Visit Summaryon 0 01-12-2024 Ambulatory Visit Summary Ambulatory Visit Summary MIKE FLORENTINO :1955 Visit Date:01/12/2024 Ambulatory Visit Instructions Your [...] EDT With: Where: [facility] of [address] [address]- Thursday 8:45 AM EST With: Shady MOHAN MD Where: [facility] of [address] [address]- Medications What How Much When Instructions Unchanged [...] you for choosing us for your care. [facility] Ambulatory Visit Summaryon 0 12-28-2023 Ambulatory Visit Summary Ambulatory Visit Summary MIKE FLORENTINO :1955 Visit Date:12/28/2023 Ambulatory Visit Instructions Your Diagnosis Hypogonadism male BPH with urinary obstruction Impotence Your Care Team Attending Physician - Shady MOHAN MD Primary Care Physician - JOSH [...] EDT With: Where: [facility] of [address] [address]- Thursday 8:45 AM EST With: Shady MOHAN MD Where: [facility] of [address] [address]- You Need to Schedule the Following Appointments Follow Up with Shady MOHAN MD, URL When: Where: [facility] [address] [place] [address]- Medications What How Much When Instructions Changed sildenafil (sildenafil 100 mg Tab) 1 Tablets By Mouth As Directed as needed for Other (see comment) Take 1 hour prior to sexual activity. Do not exceed more than 100 mg (1 tab) within 24 hours. Pickup at [facility] Changed testosterone (testosterone cypionate 200 mg/ mL IM Mavis) 300 Milligram Intramuscular Every 4 weeks Pickup at [facility] Unchanged clopidogrel (clopidogrel 75 mg Tab) [...] physician if questions or concerns Pharmacy Information [facility]: [address] [place], [place] [id number] [phone] What How Much When Comments Stop Taking [...] characteristics duri (more content not included)... [facility] PSA Totalon 12-28-2023 Prostate specific Ag [Mass/Vol] 0.5 ng/mL Normal 0.1-3.5 [facility] Comment on above: Result Comment: The concentration of PSA determined by different manufacturers can vary due to differences in assay methods and reagent specificity. Values obtained from different assay methods cannot be used interchangeably. The methodology used for this result was chemiluminescence using Sonia Gigya's Access Hybritech PSA reagent. Performed By: #### 1 [id number] #### [facility] [address] [place] [address] Urology Office/Clinic Noteon 12-28-2023 Urology Office/Clinic Note [...] - 329 & 7.9 free 12/17/23 - 239 Using Androgel 4 pumps daily. Most recent [...] knows to get T level drawn exactly care home in-between injections before 10 am. 2. BPH [...] URL [facility] [address], [place] [address]- Additional Instructions: 4 mos with T level. [...] Oral, Daily Caio (more content not included)... [facility] Comment on above: Result Comment: Elec tronically Signed By: Shady MOHAN MD\.br\Date and Time Signed: 12/28/23 13:12 EDT\.br\Electronically Co-Signed By: Kaia Valdez\.br\Date and Time Co-Signed: 12/28/23 13:08 EDT Pre-Certification Formon Pre-Certification Form [id number] 0TIFF [facility] Pre-Certification Formon Pre-Certification Form [id number]#1.0 0TIFF Normal [facility] Lab Reportson 06-30-2023 Lab Reports [id number]#[id number] 0TIFF Normal [facility] Report[facility] 06-20-2023 Lab Reports [id number] 0TIFF Normal [facility] Pre-Certification Formon Pre-Certification Form [id number] 0TIFF Normal [facility] Complete Blood Count Auto Di ffon 03-17-2023 Basophils (Bld) [#/Vol] 0.0 10*3/uL Normal 0.0-0.2 [facility] Comment on above: Performed By: #### C MP, ESR, CBC #### [facility] [address] Basophils/100 WBC (Bld) 0.3 % Normal . [facility] Comment on above: Performed By: #### C MP, ESR, CBC #### [facility] [address] [place] [address] [place] Eosinophils (Bld) [#/Vol] 0.1 10*3/uL Normal 0.0-0.45 [facility] Comment on above: Performed By: #### C MP, ESR, CBC #### [facility] [address] [place] [address] [place] Eosinophils/100 WBC (Bld) 1.2 % Normal . [facility] Comment on above: Performed By: #### C MP, ESR, CBC #### [facility] [address] [place] [address] [place] Erythrocyte distribution width (RBC) [Ratio] 14.1 % Normal 12.0-14.8 [facility] Comment on above: Performed By: #### C MP, ESR, CBC #### [facility] [address] Hematocrit (Bld) [Volume fraction] 38.4 % Low 38.8-50.0 [facility] Comment on above: Performed By: #### C MP, ESR, CBC #### [facility] [address] Hemoglobin (Bld) [Mass/Vol] 13.1 g/dL Normal 13.0-17.0 [facility] Comment on above: Performed By: #### C MP, ESR, CBC #### [facility] [address] Lymphocytes (Bld) [#/Vol] 1.0 10*3/uL Normal 1.00-4.8 [facility] Comment on above: Performed By: #### C MP, ESR, CBC #### [address] Lymphocytes/100 WBC (Bld) 22.5 % Normal . [facility] Comment on above: Performed By: #### C MP, ESR, CBC #### [address] MCH (RBC) [Entitic mass] 31.1 pg Normal 27.5-35.2 [facility] Comment on above: Performed By: #### C MP, ESR, CBC #### [address] MCV (RBC) [Entitic vol] 91.2 fL Normal 83.5-101 [facility] Comment on above: Performed By: #### C MP, ESR, CBC #### [address] Mean Corpuscular HGB Conc 34.1 g/dL Normal 32.5-35.6 [facility] Comment on above: Performed By: #### C MP, ESR, CBC #### [address] Monocytes (Bld) [#/Vol] 0.3 10*3/uL Normal 0.0-0.8 [facility] Comment on above: Performed By: #### C MP, ESR, CBC #### [place] [address] [place] Monocytes/100 WBC (Bld) 7.3 % Normal . [facility] Comment on above: Performed By: #### C MP, ESR, CBC #### [facility] [address] Neutrophils (Bld) [#/Vol] 3.1 10*3/uL Normal 1.8-7.7 [facility] Comment on above: Performed By: #### C MP, ESR, CBC #### [facility] [address] [place] [address] [place] Neutrophils/100 WBC (Bld) 68.7 % Normal . [facility] Comment on above: Performed By: #### C MP, ESR, CBC #### [facility] [address] NRBC% 0.0 /100{WBC} Normal 0-0.5 [facility] Comment on above: Performed By: #### C MP, ESR, CBC #### [facility] [address] [place] [address] Platelet mean volume (Bld) [Entitic vol] 9.7 fL Normal 6.6-10.1 [facility] Comment on above: Performed By: #### C MP, ESR, CBC #### [facility] [address] [place] [address] [place] Platelets (Bld) [#/Vol] 144 10*3/uL Low 150-450 [facility] Comment on above: Performed By: #### C MP, ESR, CBC #### [facility] [address] [place] [address] [place] RBC (Bld) [#/Vol] 4.21 10*6/uL Normal 3.90-5.60 [facility] Comment on above: Performed By: #### C MP, ESR, CBC #### [facility] [address] [place] [address] [place] WBC (Bld) [#/Vol] 4.5 10*3/uL Normal 4.1-10.5 [facility] Comment on above: Performed By: #### C MP, ESR, CBC #### [address] [place] [address] [place] Comprehensive Metabolic Pane jerrell 03-17-2023 Albumin [Mass/Vol] 4.5 g/dL Normal 3.5-5.7 [facility] Comment on above: Performed By: #### C MP, ESR, CBC #### [address] Albumin/Globulin [Mass ratio] 2.0 {ratio} Normal [facility] Comment on above: Performed By: #### C MP, ESR, CBC #### [address] ALP [Catalytic activity/Vol] 43 U/L Normal 34-104 [facility] Comment on above: Result Comment: PERF ORMED BY: [place] [address] PATHOLOGIST MANAGER DATABASE ADMINISTRATION BALDEMAR MCKINLEY M.D. Performed By: #### C MP, ESR, CBC #### [address] ALT [Catalytic activity/Vol] 14 U/L Normal 7-52 [facility] Comment on above: Performed By: #### C MP, ESR, CBC #### [address] Anion gap [Moles/Vol] 10.2 mmol/L Normal 6.0-15.0 [facility] Comment on above: Performed By: #### C MP, ESR, CBC #### [address] AST [Catalytic activity/Vol] 13 U/L Normal 13-39 [facility] Comment on above: Performed By: #### C MP, ESR, CBC #### [address] Bilirubin [Mass/Vol] 0.6 mg/dL Normal 0.3-1.0 [facility] Comment on above: Performed By: #### C MP, ESR, CBC #### [address] Calcium [Mass/Vol] 9.5 mg/dL Normal 8.6-10.3 [facility] Comment on above: Performed By: #### C MP, ESR, CBC #### [facility] [address] Chloride [Moles/Vol] 100 mmol/L Normal 98-107 [facility] Comment on above: Performed By: #### C MP, ESR, CBC #### [facility] [address] CO2 [Moles/Vol] 30.5 mmol/L Normal 21.0-31.0 [facility] Comment on above: Performed By: #### C MP, ESR, CBC #### [address] Creatinine [Mass/Vol] 0.98 mg/dL Normal 0.70-1.30 [facility] Comment on above: Performed By: #### C MP, ESR, CBC #### [address] GFR/1.73 sq M.predicted MDRD (S/P/Bld) [Vol rate/Area] mL/min/{1.73_m2} Normal [facility] Comment on above: Performed By: #### C MP, ESR, CBC #### [address] Globulin (S) [Mass/Vol] 2.3 g/dL Normal [facility] Comment on above: Performed By: #### C MP, ESR, CBC #### [address] Glucose [Mass/Vol] 177 mg/dL High 70-100 [facility] Comment on above: Result Comment: Ralph Glucose Reference Range is dependent on time and content of last meal. Glucose of more than 200 mg/dL in a nonstressed, ambulatory subject supports the diagnosis of Diabetes Mellitus. ADA recommended reference range Performed By: #### C MP, ESR, CBC #### [address] Potassium [Moles/Vol] 4.7 mmol/L Normal 3.5-5.1 [facility] Comment on above: Performed By: #### C MP, ESR, CBC #### [facility] [address] Protein [Mass/Vol] 6.8 g/dL Normal 6.4-8.9 [facility] Comment on above: Performed By: #### C MP, ESR, CBC #### [facility] [address] Sodium [Moles/Vol] 136 mmol/L Normal 136-145 [facility] Comment on above: Performed By: #### C MP, ESR, CBC #### [facility] [address] Urea nitrogen [Mass/Vol] 16 mg/dL Normal 7-25 [facility] Comment on above: Performed By: #### C MP, ESR, CBC #### [facility] [address] Erythrocyte Sedimentation Ra riya 03-17-2023 ESR (Bld) [Velocity] 15 mm/h Normal 0-19 [facility] Comment on above: Result Comment: PERF ORMED BY: [place] [address] PATHOLOGIST MANAGER DATABASE ADMINISTRATION BALDEMAR MCKINLEY M.D. Performed By: #### C MP, ESR, CBC #### [facility] [address] VASC LAB Abdominal Aorta/Isela ac/IVC Ultraon 01-05-2023 VASC LAB Abdominal Aorta/Iliac/IVC Ultra [address], [address] [place] [address] Vascular Lab Report Abdominal Aorta Iliac Ultrasound/IVC Ultrasound Patient Name: MIKE Flor Physician: [id number] Jade Gale MD, [facility] Study Date: 01/05/2023 Referring JADE GAEL Physician: MRN/PID: [id number] PCP: Josh Ospina MD Accession/Order#: [id number] CC Report to: Date of : 1955 Technologist: Deidre Jimenez RDCS, RVT Gender: M Technologist 2: Admission Status: Outpatient Location Performed: [facility] Diagnosis/ICD: L34-Rrvovghcx primary hypertension; R09.89-Bruit; I73.9-Peripheral vascular disease, unspecified Indication: ASCVD, Former Smoker, 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 Imaging AND Doppler Findings: AORTA AP Lateral PSV Proximal 1.49 cm 1.36 cm 101.0 cm/s Mid 1.55 cm 1.43 cm 97.0 cm/s Distal 1.57 cm 1.51 cm 72.0 cm/s RIGHT AP Lateral PSV FRANCISCO Proximal 1.08 cm 0.81 cm 147.00 cm/s LEFT AP Lateral PSV FRANCISCO Proximal 0.83 cm 0.96 cm 94.00 cm/s [id number] Jade Gale MD, FACC Final Normal [facility] TESTOSTERONE, TOTALon 2021 Testosterone [Mass/Vol] 229 ng/dL Critically low 264-916 [facility] Comment on above: Result Comment: Adul t male reference interval is based on a population of healthy nonobese males (BMI <30) between 19 and 39 years old. Leticia, et.al. JCEM 2017,102;8010-5796. PMID: [id number]. 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 Vitals Vital Signs Recorded: 04Feb2022 08:27AM Heart Rate74, R Radial Mojmygxg196, LUE, Sitting Rdahipezi76, LUE, Sitting Height6 ft 2 in Zpqhsr838 lb 2 oz BMI Kitlrfzucc58.03 kg/m2 BSA Calculated2.29 Tobacco Useb) No PHQ-2 #1. Over the last 2 weeks have you felt down, depressed or hopeless? (If yes, answer PHQ-9 below)No PHQ-2 #2. Over the last 2 weeks have you felt littl (more content not included)... Normal [facility] GLYCOHEMOGLOBIN A1Con 2021 ADA RECOMMENDATION SEE BELOW Normal [facility] Comment on above: Result Comment: ADA RECOMMENDED LIMIT 4.0 - 6.0 ADA THERAPEUTIC TARGET < 7.0 ACTION SUGGESTED > 7.0 Performed By: #### A 1C #### [facility] [address] [place] [address] Dr. Juan Alberto Carranza Glucose [Mass/Vol] 126 mg/dL Normal [facility] Comment on above: Performed By: #### A 1C #### [facility] [address] [place] [address] Dr. Juan Alberto Carranza HbA1c (Bld) [Mass fraction] 6.0 % Normal 4.5-6.2 [facility] Comment on above: Performed By: #### A 1C #### [facility] [address] [address] [address] Juan Alberto Carranza LIPID PROFILEon 01-10-2022 CHOL-HDL RATIO NORM SEE BELOW Normal [facility] Comment on above: Result Comment: 3.3 - 4.4 LOW RISK 4.4 - 7.1 AVERAGE RISK 7.1 - 11.0 MODERATE RISK >11.0 HIGH RISK Performed By: #### L IPID, CMP #### [facility] [address] [place] [address] Dr. Juan Alberto Carranza Cholesterol [Mass/Vol] 136 mg/dL Normal <=200 [facility] Comment on above: Performed By: #### L IPID, CMP #### [facility] [address] [address] [address] Juan Alberto Carranza Cholesterol in HDL [Mass/Vol] 62 mg/dL Critically high 40-60 [facility] Comment on above: Performed By: #### L IPID, CMP #### [facility] [address] [address] [address] Juan Alberto Carranza Cholesterol in LDL [Mass/Vol] 57.6 mg/dL Normal [facility] Comment on above: Performed By: #### L IPID, CMP #### [facility] [address] [address] [address] Juan Alberto Carranza Cholesterol.total/Ch olesterol in HDL [Mass ratio] 2.2 {ratio} Normal [facility] Comment on above: Performed By: #### L IPID, CMP #### [facility] [address] [address] [address] Juan Alberto Carranza HDL NORMAL > or = 60 mg/dl - LO W CARDIOVASCULAR RISK <40 mg/dl - HIGH CARDIOVASCULAR RISK Normal [facility] Comment on above: Performed By: #### L IPID, CMP #### [facility] [address] [place] [address] Dr. Juan Alberto Carranza LDL CALC NORMAL SEE BELOW Normal [facility] Comment on above: Result Comment: <100 mg/dl OPTIMAL 100 - 129 mg/dl NEAR OR ABOVE OPTIMAL 130 - 159 mg/dl BORDERLINE HIGH 160 - 189 mg/dl HIGH >190 mg/dl VERY HIGH Performed By: #### L IPID, CMP #### [facility] [address] [place] [address] Dr. Juan Alberto Carranza Triglyceride [Mass/Vol] 82 mg/dL Normal <=150 [facility] Comment on above: Performed By: #### L IPID, CMP #### [facility] [address] [place] [address] Dr. Juan Alberto Carranza VLDL CALC 16.4 mg/dL Normal [facility] Comment on above: Performed By: #### L IPID, CMP #### [facility] [address] [address] [address] Juan Alberto Carranza PROF 14(COMP METB)on 022 Albumin [Mass/Vol] 4.0 g/dL Normal 3.4-5.0 [facility] Comment on above: Performed By: #### L IPID, CMP #### [facility] [address] [place] [address] Dr. Juan Alberto Carranza Albumin/Globulin [Mass ratio] 1.3 {ratio} Normal [facility] Comment on above: Performed By: #### L IPID, CMP #### [facility] [address] [address] [address] Juan Alberto Carranza ALP [Catalytic activity/Vol] 48 U/L Normal 46-116 [facility] Comment on above: Performed By: #### L IPID, CMP #### [facility] [address] [address] [address] Juan Alberto Carranza ALT [Catalytic activity/Vol] 28 U/L Normal 16-63 [facility] Comment on above: Performed By: #### L IPID, CMP #### [facility] [address] [address] [address] Juan lAberto Carranza Anion gap [Moles/Vol] 13.2 mmol/L Normal [facility] Comment on above: Performed By: #### L IPID, CMP #### [facility] [address] [address] [address] Juan Alberto Carranza AST [Catalytic activity/Vol] 13 U/L Critically low 15-37 [facility] Comment on above: Performed By: #### L IPID, CMP #### [facility] [address] [address] [address] Juan Alberto Carranza Bilirubin [Mass/Vol] 0.6 mg/dL Normal 0.2-1.0 [facility] Comment on above: Performed By: #### L IPID, CMP #### [facility] [address] [address] [address] Juan Alberto Carranza Calcium [Mass/Vol] 8.8 mg/dL Normal 8.5-10.1 [facility] Comment on above: Performed By: #### L IPID, CMP #### [facility] [address] [address] [address] Juan Alberto Carranza Chloride [Moles/Vol] 100 mmol/L Normal 98-107 [facility] Comment on above: Performed By: #### L IPID, CMP #### [facility] [address] [address] [address] Juan Alberto Carranza CO2 [Moles/Vol] 29.1 mmol/L Normal 21.0-32.0 [facility] Comment on above: Performed By: #### L IPID, CMP #### [facility] [address] [address] [address] Juan Alberto Carranza Creatinine [Mass/Vol] 0.89 mg/dL Normal 0.70-1.30 [facility] Comment on above: Performed By: #### L IPID, CMP #### [facility] [address] [address] [address] Juan Alberto Carranza EGFR-AF IVORIAN >60 Normal >=60 [facility] Comment on above: Performed By: #### L IPID, CMP #### [facility] [address] [address] [address] Juan Alberto Carranza EGFR-NON AF IVORIAN >60 Normal >=60 [facility] Comment on above: Performed By: #### L IPID, CMP #### [facility] [address] [address] [address] Juan Alberto Carranza Globulin (S) [Mass/Vol] 3.0 g/dL Normal [facility] Comment on above: Performed By: #### L IPID, CMP #### [facility] [address] [address] [address] Juan Alberto Carranza Glucose [Mass/Vol] 134 mg/dL Critically high 74-106 [facility] Comment on above: Performed By: #### L IPID, CMP #### [facility] [address] [address] [address] Juan Alberto Carranza Potassium [Moles/Vol] 4.3 mmol/L Normal 3.5-5.1 [facility] Comment on above: Performed By: #### L IPID, CMP #### [facility] [address] [address] [address] Juan Alberto Carranza Protein [Mass/Vol] 7.0 g/dL Normal 6.4-8.2 [facility] Comment on above: Performed By: #### L IPID, CMP #### [facility] [address] [address] [address] Juan Alberto Carranza Sodium [Moles/Vol] 138 mmol/L Normal 136-145 [facility] Comment on above: Performed By: #### L IPID, CMP #### [facility] [address] [address] [address] Juan Alberto Carranza Urea nitrogen [Mass/Vol] 17.0 mg/dL Normal 7.0-18.0 [facility] Comment on above: Performed By: #### L IPID, CMP #### [facility] [id number] Juan Alberto Carranza Urea nitrogen/Creatinine [Mass ratio] 19.1 mg/mg Normal [facility] Comment on above: Performed By: #### L IPID, CMP #### [facility] [address] [address] [address] Juan Alberto Carranza TESTOSTERONE, TOTALon 2021 Testosterone [Mass/Vol] 321 ng/dL Normal 264-916 [facility] Comment on above: Result Comment: Adul t male reference interval is based on a population of healthy nonobese males (BMI <30) between 19 and 39 years old. Travwong, et.al. JCEM 2017,102;5605-0658. PMID: [id number]. Performed By: #### T ESTTOT #### [facility] [address] [place] [address] Dr. Juan Alberto Carranza TESTOSTERONE, TOTALon 2021 Testosterone [Mass/Vol] 360 ng/dL Normal 264-916 [facility] Comment on above: Result Comment: Adul t male reference interval is based on a population of healthy nonobese males (BMI <30) between 19 and 39 years old. Travwong, et.al. JCEM 2017,102;4627-7389. PMID: [id number]. Performed By: #### T ESTTOT ####[facility] [id number] [id number] Juan Alberto Carranza CBC AUTO DIFFon 07-13-2021 BASO # 0.0 103/ul Normal 0.0-0.1 [facility] Comment on above: Performed By: #### C BC #### [facility] [address] [address] [address] Juan Alberto Carranza Basophils/100 WBC (Bld) 0.5 % Normal 0.2-2.0 [facility] Comment on above: Performed By: #### C BC #### [facility] [address] [place] [address] Dr. Juan Alberto Carranza EO # 0.1 103/ul Normal 0.0-0.7 [facility] Comment on above: Performed By: #### C BC #### [facility] [address] [place] [address] Dr. Juan Alberto Carranza Eosinophils/100 WBC (Bld) 1.8 % Normal 0.9-7.0 [facility] Comment on above: Performed By: #### C BC #### [facility] [address] [place] [address] Dr. Juan Alberto Carranza Erythrocyte distribution width (RBC) [Ratio] 13.5 % Normal 11.0-15.0 [facility] Comment on above: Performed By: #### C BC #### [facility] [address] [place] [address] Dr. Juan Alberto Carranza Hematocrit (Bld) [Volume fraction] 40.4 % Critically low 42.0-54.0 [facility] Comment on above: Performed By: #### C BC #### [facility] [address] [place] [address] Dr. Juan Alberto Carranza Hemoglobin (Bld) [Mass/Vol] 13.9 g/dL Critically low 14.0-18.0 [facility] Comment on above: Performed By: #### C BC #### [facility] [address] [place] [address] Dr. Juan Alberto Carranza IG # 0.01 10e3/ul Normal 0.00-0.03 [facility] Comment on above: Performed By: #### C BC #### [facility] [address] [place] [address] Dr. Juan Alberto Carranza IG % 0.2 % Normal 0.0-0.5 [facility] Comment on above: Performed By: #### C BC #### [facility] [address] [place] [address] Dr. Juan Alberto Carranza LYMPH # 0.9 103/ul Critically low 1.2-3.8 [facility] Comment on above: Performed By: #### C BC #### [facility] [address] [place] [address] Dr. Juan Alberto Carranza Lymphocytes/100 WBC (Bld) 20.5 % Normal 20.5-60.0 [facility] Comment on above: Performed By: #### C BC #### [facility] [address] [place] [address] Dr. Juan Alberto Carranza MANUAL DIFF REQ NO Normal [facility] Comment on above: Performed By: #### C BC #### [facility] [address] [place] [address] Dr. Juan Alberto Carranza MCH (RBC) [Entitic mass] 32.3 pg Normal 25.9-34.0 [facility] Comment on above: Performed By: #### C BC #### [facility] [address] [place] [address] Dr. Juan Alberto Carranza MCHC (RBC) [Mass/Vol] 34.4 g/dL Normal 29.9-35.2 [facility] Comment on above: Performed By: #### C BC #### [facility] [address] [place] [address] Dr. Juan Alberto Carranza MCV (RBC) [Entitic vol] 93.7 fL Normal 80.0-94.0 [facility] Comment on above: Performed By: #### C BC #### [facility] [address] [place] [address] Dr. Juan Alberto Carranza MONO # 0.3 103/ul Normal 0.3-0.8 [facility] Comment on above: Performed By: #### C BC #### [facility] [address] [place] [address] Dr. Juan Alberto Carranza Monocytes/100 WBC (Bld) 7.0 % Normal 1.7-12.0 [facility] Comment on above: Performed By: #### C BC #### [facility] [address] [place] [address] Dr. Juan Alberto Carranza NEUT # 3.1 103/ul Normal 1.4-6.5 [facility] Comment on above: Performed By: #### C BC #### [facility] [address] [address] [address] Juan Alberto Carranza Neutrophils/100 WBC (Bld) 70.0 % Normal 43.0-75.0 [facility] Comment on above: Performed By: #### C BC #### [facility] [address] [address] [address] Juan Alberto Carranza Platelet mean volume (Bld) [Entitic vol] 11.3 fL Normal 9.5-13.5 [facility] Comment on above: Performed By: #### C BC #### [facility] [address] [place] [address] Dr. Juan Alberto Carranza PLT 141 103/ul Critically low 150-450 [facility] Comment on above: Performed By: #### C BC #### [facility] [address] [place] [address] Dr. Juan Alberto Carranza RBC 4.31 106/ul Critically low 4.70-6.10 [facility] Comment on above: Performed By: #### C BC #### [facility] [address] [place] [address] Dr. Juan Alberto Carranza WBC 4.4 103/ul Normal 4.0-11.0 [facility] Comment on above: Performed By: #### C BC #### [facility] [address] [place] [address] Dr. Juan Alberto Carranza LIPID PROFILEon 07-13-2021 CHOL-HDL RATIO NORM SEE BELOW Normal [facility] Comment on above: Result Comment: 3.3 - 4.4 LOW RISK 4.4 - 7.1 AVERAGE RISK 7.1 - 11.0 MODERATE RISK >11.0 HIGH RISK Performed By: #### L IPID #### [facility] [address] [place] [address] Dr. Juan Alberto Carranza Cholesterol [Mass/Vol] 139 mg/dL Normal <=200 [facility] Comment on above: Performed By: #### L IPID #### [facility] [address] [place] [address] Dr. Juan Alberto Carranza Cholesterol in HDL [Mass/Vol] 72 mg/dL Normal [facility] Comment on above: Performed By: #### L IPID #### [facility] [address] [address] [address] Juan Alberto Carranza Cholesterol in LDL [Mass/Vol] 62.4 mg/dL Normal [facility] Comment on above: Performed By: #### L IPID #### [facility] [address] [address] [address] Juan Alberto Carranza Cholesterol.total/Ch olesterol in HDL [Mass ratio] 1.9 {ratio} Normal [facility] Comment on above: Performed By: #### L IPID #### [facility] [address] [place] [address] Dr. Juan Alberto Carranza HDL NORMAL > or = 60 mg/dl - LO W CARDIOVASCULAR RISK <40 mg/dl - HIGH CARDIOVASCULAR RISK Normal [facility] Comment on above: Performed By: #### L IPID #### [facility] [address] [place] [address] Dr. Juan Alberto Carranza LDL CALC NORMAL SEE BELOW Normal [facility] Comment on above: Result Comment: <100 mg/dl OPTIMAL 100 - 129 mg/dl NEAR OR ABOVE OPTIMAL 130 - 159 mg/dl BORDERLINE HIGH 160 - 189 mg/dl HIGH >190 mg/dl VERY HIGH Performed By: #### L IPID #### [facility] [address] [place] [address] Dr. Juan Alberto Carranza Triglyceride [Mass/Vol] 23 mg/dL Normal <=150 [facility] Comment on above: Performed By: #### L IPID #### [facility] [address] [place] [address] Dr. Juan Alberto Carranza VLDL CALC 4.6 mg/dL Normal [facility] Comment on above: Performed By: #### L IPID #### [facility] [address] [place] [address] Dr. Juan Alberto Carranza PROF 14(COMP METB)on 022 Albumin [Mass/Vol] 4.0 g/dL Normal 3.5-5.0 [facility] Comment on above: Performed By: #### C MP #### [facility] [address] [address] [address] Juan Alberto Carranza Albumin/Globulin [Mass ratio] 1.3 {ratio} Normal [facility] Comment on above: Performed By: #### C MP #### [facility] [address] [address] [address] Juan Alberto Carranza ALP [Catalytic activity/Vol] 60 U/L Normal 38-126 [facility] Comment on above: Performed By: #### C MP #### [facility] [address] [address] [address] Juan Alberto Carranza ALT [Catalytic activity/Vol] 22 U/L Normal 21-72 [facility] Comment on above: Performed By: #### C MP #### [facility] [address] [place] [address] Dr. Juan Alberto Carranza Anion gap [Moles/Vol] 9.4 mmol/L Normal [facility] Comment on above: Performed By: #### C MP #### [facility] [address] [place] [address] Dr. Juan Alberto Carranza AST [Catalytic activity/Vol] 12 U/L Critically low 17-59 [facility] Comment on above: Performed By: #### C MP #### [facility] [address] [place] [address] Dr. Juan Alberto Carranza Bilirubin [Mass/Vol] 0.6 mg/dL Normal 0.2-1.3 [facility] Comment on above: Performed By: #### C MP #### [facility] [address] [place] [address] Dr. Juan Alberto Carranza Calcium [Mass/Vol] 8.9 mg/dL Normal 8.4-10.2 [facility] Comment on above: Performed By: #### C MP #### [facility] [address] [place] [address] Dr. Juan Alberto Carranza Chloride [Moles/Vol] 103 mmol/L Normal 98-107 [facility] Comment on above: Performed By: #### C MP #### [facility] [address] [place], [place] [id number] Dr. Juan Alberto Carranza CO2 [Moles/Vol] 28.8 mmol/L Normal 22.0-30.0 [facility] Comment on above: Performed By: #### C MP #### [facility] [address] [place] [address] Dr. Juan Alberto Carranza Creatinine [Mass/Vol] 0.83 mg/dL Normal 0.66-1.25 [facility] Comment on above: Performed By: #### C MP #### [facility] [address] [place] [address] Dr. Juan Alberto Carranza EGFR-AF IVORIAN >60 Normal >=60 [facility] Comment on above: Performed By: #### C MP #### [facility] [address] [place] [address] Dr. Juan Alberto Carranza EGFR-NON AF IVORIAN >60 Normal >=60 [facility] Comment on above: Performed By: #### C MP #### [facility] [address] [place] [address] Dr. Juan Alberto Carranza Globulin (S) [Mass/Vol] 3.2 g/dL Normal [facility] Comment on above: Performed By: #### C MP #### [facility] [address] [place] [address] Dr. Juan Alberto Carranza Glucose [Mass/Vol] 135 mg/dL Critically high 74-106 T [facility] Comment on above: Performed By: #### C MP #### [facility] [address] [place] [address] Dr. Juan Alberto Carranza Potassium [Moles/Vol] 5.2 mmol/L Critically high 3.4-5.0 [facility] Comment on above: Performed By: #### C MP #### [facility] [address] [place] [address] Dr. Juan Alberto Carranza Protein [Mass/Vol] 7.2 g/dL Normal 6.1-8.2 [facility] Comment on above: Performed By: #### C MP #### [facility] [address] [place] [address] Dr. Juan Alberto Carranza Sodium [Moles/Vol] 136 mmol/L Critically low 137-145 Th e [facility] Comment on above: Performed By: #### C MP #### [facility] [address] [address] [address] Juan Alberto Carranza Urea nitrogen [Mass/Vol] 17.0 mg/dL Normal 9.0-20.0 [facility] Comment on above: Performed By: #### C MP #### [facility] [address] [address] [address] Juan Alberto Carranza Urea nitrogen/Creatinine [Mass ratio] 20.5 mg/mg Normal [facility] Comment on above: Performed By: #### C MP #### [facility] [address] [place] [address] Dr. Juan Alberto Carranza SED RATE [facility] 2021 SED RATE 2 mm/hr Normal <=20 [facility] Comment on above: Performed By: #### S EDR #### [facility] [address] [place] [address] Dr. 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 Hyperlipidemia, on statin therapy, under control. Lipid profile was requested from PCP 5. Overweight. Weight has dropped 15 pounds from last year which is encouraging 6. Hypertension, presently under control. 7. Diabetes, under control., Lab data from PCP were requested Jade Gale MD, [facility] Current Meds Medication NameInstruction Aspirin 81 [...] negative for complaint. Vitals Vital Signs Recorded: [id number] 03:40PM Heart Rate80, R Radial Mgmioyxj701, RUE, Sitting Buhcgaopx90, RUE, Sitting Height6 ft 2 in Apvpfv387 lb 9.6 oz BMI Gltygynapi63.61 kg/m2 BSA Calculated2.31 Tobacco Useb) No Fall [...] Apr 23 2021 4:16PM EST (Author) Normal [employer] MRI SHOULDER RIGHT WO CONTRA STon 07-06-2017 [...] by:Jair Olivia MD07/06/17inal result Normal [facility] Vital Signs Date Time Vital Sign Value Performing Clinician Facility 05-02-2024 09:33-0500 Body height 185.4 cm Josh Furlong DO Work Phone: [facility] [employer] [facility] 05-02-2024 09:33-0500 Body mass index (BMI) [Ratio] 30.32 kg/m2 Josh Furlong DO Work Phone: [facility] [employer] [facility] 05-02-2024 09:33-0500 Body temperature 98.2 [degF] Josh Furlong DO Work Phone: [facility] [employer] [facility] 05-02-2024 09:33-0500 Body weight 104.24 kg Josh Furlong DO Work Phone: [facility] [employer] [facility] 05-02-2024 09:33-0500 Diastolic blood pressure 52 mm[Hg] Josh Furlong DO Work Phone: [facility] [employer] [facility] 05-02-2024 09:33-0500 Heart rate 72 /min [email or web address] DO Work Phone: [facility] [employer] [facility] 05-02-2024 09:33-0500 Respiratory rate 18 /min Josh LaraClinicbookng DO Work Phone: [facility] [employer] 05-02-2024 09:33-0500 SaO2% (BldA) [Mass fraction] 99 % JoshSidestagelong DO Work Phone: [facility] [employer] [facility] 05-02-2024 09:33-0500 Systolic blood pressure 104 mm[Hg] Josh BermudezClinicbookng DO Work Phone: [facility] 03-22-2024 10:51-0500 Body height 185.[address] [facility] 03-22-2024 10:51-0500 Body mass index (BMI) [Ratio] 30 kg/m2 [facility] 03-22-2024 10:51-0500 Body weight 103.[address] [facility] 03-22-2024 10:51-0500 Diastolic blood pressure 61 mm[Hg] [facility] 03-22-2024 10:51-0500 Heart rate 67 /min [facility] 03-22-2024 10:51-0500 SaO2% (BldA) [Mass fraction] 98 % [facility] 03-22-2024 10:51-0500 Systolic blood pressure 112 mm[Hg] [facility] 03-22-2024 08:42-0500 Body height 185.4 cm Jade Gale MD Work Phone: [facility] 03-22-2024 08:42-0500 Body mass index (BMI) [Ratio] 29.95 kg/m2 Jade Gale MD Work Phone: [facility] 03-22-2024 08:42-0500 Body weight 102.97 kg Jade Gale MD Work Phone: [facility] 03-22-2024 08:42-0500 Diastolic blood pressure 50 mm[Hg] Jade Gale MD Work Phone: [facility] 03-22-2024 08:42-0500 Heart rate 64 /min Jade Gale MD Work Phone: [facility] 03-22-2024 08:42-0500 Systolic blood pressure 100 mm[Hg] Jade Gale MD Work Phone: [facility] 06-25-2023 09:55-0500 Body mass index (BMI) [Ratio] 29.34 kg/m2 Josh Ospina DO Work Phone: [facility] 06-25-2023 09:55-0500 Body weight 100.88 kg Josh Ospina DO Work Phone: [facility] 06-18-2023 08:39-0500 Body height 185.4 cm Jade Gale MD Work Phone: [facility] 06-18-2023 08:39-0500 Body mass index (BMI) [Ratio] 29.82 kg/m2 Jade Gale MD Work Phone: [facility] 06-18-2023 08:39-0500 Body weight 102.51 kg Jade Gale MD Work Phone: [facility] 06-18-2023 08:39-0500 Diastolic blood pressure 76 mm[Hg] Jade Gale MD Work Phone: [facility] 06-18-2023 08:39-0500 Heart rate 62 /min Jade Gale MD Work Phone: [facility] 06-18-2023 08:39-0500 Systolic blood pressure 130 mm[Hg] Jade Gale MD Work Phone: [facility] 03-27-2022 16:00-0500 Body height Aryan Garcia Other [facility] Other 03-27-2022 16:00-0500 Body mass index (BMI) [Ratio] 29.81 kg/m2 Aryan Garcia Other [facility] Other 03-27-2022 16:00-0500 Body temperature 96.9 [degF] Aryan Garcia Other [facility] Other 03-27-2022 16:00-0500 Body weight 102.51 kg Aryan Garcia Other [facility] Other 03-27-2022 16:00-0500 Diastolic blood pressure 70 mm[Hg] Aryan Garcia Other [facility] Other 03-27-2022 16:00-0500 SaO2% (BldA) [Mass fraction] 100 % Aryan Garcia Other [facility] Other 03-27-2022 16:00-0500 Systolic blood pressure 128 mm[Hg] Aryan Garcia Other [facility] Other Encounters Encounter Date Encounter Type Care Provider Facility Start: 10-21-2024 ambulatory Shadyjane MOHAN [facility]my[facility] ty:[facility] Start: 05-30-2024 ambulatory Shady MOHAN [facility] ty:[facility] [place] Start: 05-02-2024 End: 05-02-2024 ambulatory Shady MOHAN Facility:[facility] [place] Start: 05-02-2024 End: 05-02-2024 Office outpatient visit 25 minutes Josh Larava [facility] DO Work Phone: [facility] Comment on above: Type 2 diabetes gordy itus with diabetic polyneuropathy, without long-term current use of insulin ([facility]) (Primary Dx); Essential hypertension; Peripheral vascular disease ([facility]); ASCVD (arteriosclerotic cardiovascular disease); Class 1 obesity due to excess calories with serious comorbidity and body mass index (BMI) of 30.0 to 30.9 in adult; Myalgia Start: 05-02-2024 End: 05-02-2024 [facility] Start: 04-24-2024 End: 04-24-2024 Refill [facility] Larava [facility] DO Work Phone: [facility] Start: 04-04-2024 End: 04-04-2024 ambulatory Shady MOHAN Facility:[facility] Start: 03-22-2024 End: 03-22-2024 [facility] Work Phone: Start: 03-22-2024 End: 03-22-2024 Patient encounter procedure [facility] Work Phone: Start: 03-22-2024 End: 03-22-2024 Office outpatient visit 25 minutes Jade Gale MD Work Phone: [facility] Comment on above: ASCVD (arteriosclero tic cardiovascular disease) (Primary Dx); Peripheral vascular disease ([facility]); Essential hypertension; Hyperlipidemia, unspecified hyperlipidemia type; Other specified diabetes mellitus without complication, without long-term current use of insulin; Obstructive sleep apnea syndrome; Former smoker; BMI 29.0-29.9,adult; Diabetes mellitus type II, non insulin dependent (Multi) Start: 03-22-2024 End: 03-22-2024 ambulatory [facility] Amb[facility] Start: 03-08-2024 End: 03-08-2024 ambulatory Shady MOHAN Facility:[facility] [place] Start: 02-29-2024 End: 02-29-2024 Orders Only Josh Bermudezrinkugregg DO Work Phone: [facility] Comment on above: Normocytic normochro alma anemia (Primary Dx); Type 2 diabetes mellitus with diabetic polyneuropathy, without long-term current use of insulin ([facility]); Essential hypertension Start: 02-08-2024 End: 02-08-2024 ambulatory Shady MOHAN Facility:[facility] [place] Start: 01-12-2024 End: 01-12-2024 ambulatory Josseline Kerr Facility:[facility] [place] Start: 12-28-2023 End: 12-28-2023 ambulatory Shady MOHAN Facility:[facility] Start: 12-28-2023 End: 12-28-2023 ambulatory Shady MOHAN Facility:[facility] Start: 11-02-2023 End: 11-02-2023 ambulatory Shady MOHAN Facility:[facility] Start: 07-02-2023 Refill Kenzie Richards EQUINE SCIENCE INSTRUCTOR [facility] Comment on above: Type 2 diabetes gordy itus with diabetic polyneuropathy, without long-term current use of insulin ([facility]) (Primary Dx) Start: 07-01-2023 Refill Belkys Angelique EQUINE SCIENCE INSTRUCTOR [facility] Comment on above: Type 2 diabetes gordy itus with diabetic polyneuropathy, without long-term current use of insulin ([facility]) (Primary Dx) Start: 06-29-2023 Refill Belkys Angelique EQUINE SCIENCE INSTRUCTOR [facility] Start: 06-26-2023 Orders Only Josh G Vinny ng DO Work Phone: [facility] Start: 06-25-2023 End: 06-25-2023 Office outpatient visit 25 minutes Josh G Janell DO Work Phone: [facility] Comment on above: Type 2 diabetes gordy itus with diabetic polyneuropathy, without long-term current use of insulin ([facility]) (Primary Dx); Normocytic normochromic anemia; Peripheral vascular disease ([facility]); Thrombocytopenia ([facility]) Start: 06-25-2023 End: 06-25-2023 ambulatory [facility] Start: 06-23-2023 Refill Belkys Angelique EMILY [facility] Start: 06-18-2023 End: 06-18-2023 Office outpatient visit 25 minutes Jade Gale MD Work Phone: [facility] Comment on above: ASCVD (arteriosclero tic cardiovascular disease) (Primary Dx); Peripheral vascular disease ([facility]); Essential hypertension; Hyperlipidemia, unspecified hyperlipidemia type; Other specified diabetes mellitus without complication, without long-term current use of insulin ([facility]); Former smoker; Overweight Start: 06-18-2023 End: 06-18-2023 ambulatory [facility] Ambulatory Start: 05-04-2023 End: 05-04-2023 ambulatory [facility] Start: 03-17-2023 End: 03-17-2023 ambulatory Shanice Bailey Facility:[facility] Start: 01-05-[address] Jade Gale Facility:[id number] Start: 10-08-2022 Office outpatient vi sit 25 minutes Josh Ospina Work Phone: [facility] Work Phone: Start: 08-20-2022 Rx Renewal Josh Dailey ng Work Phone: [facility] DO Work Phone: Start: 04-26-2022 End: 04-27-[address] JOSH OSPINA Facility:[facility] Start: 03-27-2022 End: 03-27-2022 Patient encounter procedure DO Josh Ospina Work Phone: [facility] Start: 03-27-2022 End: 03-27-2022 ambulatory DO Josh Janell Work Phone: [facility] Work Phone: Start: 03-27-2022 Office outpatient vi sit 25 minutes Aryan [facility] Start: 02-04-[address] Jade Gale Facility: Start: 01-10-2022 End: 01-11-[address] JOSH OSPINA Facility:[facility] Start: 12-03-2021 Rx Renewal Josh Sanchez Lararinku ng Work Phone: [facility] DO Work Phone: Start: 11-26-2021 Rx Renewal Josh Dailey ng Work Phone: [facility] DO Work Phone: Start: 11-19-2021 Rx Renewal Josh Dailey ng Work Phone: [facility] [facility] DO Work Phone: Start: 10-26-2021 End: 10-27-[address] JOSH OSPINA Facility:[facility] Start: 07-24-2021 End: 07-25-[address] SHANICE BAILEY Facility:[facility] Start: 07-13-2021 End: 07-14-[address] SHANICE BAILEY Facility:[facility] Start: 06-04-[address] JOSH OSPINA Fac ility:[facility] Start: 04-23-2021 ambulatory Josh Brand acility: Start: 07-06-2017 End: 07-09-2017 Ambulatory [facility] Procedures Date Procedure Procedure Detail Performing Clinician Start: 05-02-2024 Adult depression scr eening assessment Josh Ospina DO Work Phone: Start: 04-01-2024 Diabetic retinal eye exam Josh Ospina DO Work Phone: Start: 06-25-2023 Adult depression scr eening assessment Josh Ospina DO Work Phone: Start: 06-19-2023 Lipid panel Jade barker MD Work Phone: Start: 06-18-2023 Aspartate aminotrans ferase [Enzymatic activity/volume] in Serum or Plasma [facility] Start: 06-18-2023 Basic metabolic 2000 panel - Serum or Plasma [facility] Start: 06-18-2023 CBC panel - Blood by Automated count [facility] Start: 06-18-2023 Lipid panel JADE LUNDY LUMA Start: 06-18-2023 Alanine aminotransfe rase [Enzymatic activity/volume] in Serum or Plasma [facility] Start: 05-04-2023 Adult depression scr eening assessment Belkys Angelique EQUINE SCIENCE INSTRUCTOR Start: 05-04-2023 Microalbumin [Mass/v olume] in Urine by Test strip Belkys Angelique EQUINE SCIENCE INSTRUCTOR Start: 05-13-2022 Diabetic retinal eye exam Belkys Angelique EQUINE SCIENCE INSTRUCTOR Start: 04-26-[address] PINO MOHAN Comment on above: Performed By: #### P SAD #### [facility] [address] [place] [address] Dr. Juan Alberto Carranza Start: 07-06-2017 Mri [...] colon Colon Cancer Screening 5 Year Sigmoidoscopy [facility] Comment on above: Postponed from 10/19/2000 (Not Indicated ) Start: 05-02-2025 Adult BMI Screening Adult BMI Screening [facility] Start: 05-02-2025 Depression Screening Depression Screening [facility] Start: 05-02-2025 Fall Risk Screening Fall Risk Screening [facility] Start: 05-02-2025 Tobacco Screening Tobacco Screening [facility] Start: 04-01-2025 Glaucoma screening Diabetic Ophthalmology Exam [facility] Start: 12-27-2024 End: 12-27-2024 Patient encounter procedure 12/27/2024 8:50 AM EDT Office Visit [facility] [address] [place] [address] Jade Gale MD [address] [facility] [address] [place] [address] [facility] Start: 10-31-2024 End: 10-31-2024 Patient encounter procedure 10/31/2024 9:00 AM EDT Office Visit [facility] [address] [place] [address] Josh Ospina, DO [address], [facility] [place] [address] [facility] Start: 07-04-2024 DTaP,Tdap and Td Vaccines (2 - Td or Tdap) DTaP,Tdap and Td Vaccines (2 - Td or Tdap) [facility] Start: 07-04-2024 DTaP/Tdap/Td Vaccines (2 - Td or Tdap) DTaP/Tdap/Td Vaccines (2 - Td or Tdap) [facility] Start: 06-25-2024 Adult BMI Screening Adult BMI Screening [facility] Start: 06-25-2024 Depression Screening Depression Screening [facility] Start: 06-25-2024 Fall Risk Screening Fall Risk Screening [facility] Start: 06-25-2024 Tobacco Screening Tobacco Screening [facility] Start: 05-18-2024 COVID-19 Vaccine ( season) COVID-19 Vaccine () [facility] Comment on above: Postponed from 01/17/2024 (Patient Refus ed) Start: 05-04-2024 Adult BMI Screening Adult BMI Screening [facility] Start: 05-04-2024 Depression Screening Depression Screening [facility] Start: 05-04-2024 Diabetic foot examination Diabetic Foot Exam [facility] Start: 05-04-2024 Fall Risk Screening Fall Risk Screening [facility] Start: 05-04-2024 Tobacco Screening Tobacco Screening [facility] Start: 05-04-2024 Urine screening for protein [facility] Start: 05-02-2024 End: 05-02-2024 Patient encounter procedure 05/02/2024 9:30 AM EST Office Visit [facility] [address] [place] [address] Josh Ospina DO [address], [facility] [place] [address] [facility] Start: 04-07-2024 Screening for malignant neoplasm of colon [facility] Start: 03-22-2024 End: 03-22-2025 Alanine aminotransferase [Enzymatic activity/volume] in Serum or Plasma by With P-5'-P Alanine Aminotransferase Lab Routine ASCVD (arteriosclerotic cardiovascular disease) Hyperlipidemia, unspecified hyperlipidemia type Expected: 03/22/2024 (Approximate), Expires: 03/22/2025 [facility] Service Area Work Phone: Comment on above: Expected: 03/22/2024 (Approximate), Expi res: 03/22/2025 Start: 03-22-2024 End: 03-22-2025 Aspartate aminotransferase [Enzymatic activity/volume] in Serum or Plasma by With P-5'-P Aspartate Aminotransferase Lab Routine ASCVD (arteriosclerotic cardiovascular disease) Hyperlipidemia, unspecified hyperlipidemia type Expected: 03/22/2024 (Approximate), Expires: 03/22/2025 [facility] Work Phone: Comment on above: Expected: 03/22/2024 (Approximate), Expi res: 03/22/2025 Start: 03-22-2024 End: 03-22-2025 Basic metabolic 2000 panel - Serum or Plasma Basic Metabolic Panel Lab Routine ASCVD (arteriosclerotic cardiovascular disease) Essential hypertension Expected: 03/22/2024 (Approximate), Expires: 03/22/2025 [facility] Work Phone: Comment on above: Expected: 03/22/2024 (Approximate), Expi res: 03/22/2025 Start: 03-22-2024 End: 03-22-2025 CBC panel - Blood by Automated count CBC Lab Routine ASCVD (arteriosclerotic cardiovascular disease) Expected: 03/22/2024 (Approximate), Expires: 03/22/2025 [facility] Work Phone: Comment on above: Expected: 03/22/2024 (Approximate), Expi res: 03/22/2025 Start: 03-22-2024 End: 03-22-2025 Lipid 1996 panel - Serum or Plasma Lipid Panel Lab Routine ASCVD (arteriosclerotic cardiovascular disease) Hyperlipidemia, unspecified hyperlipidemia type Expected: 03/22/2024 (Approximate), Expires: 03/22/2025 [facility] Work Phone: Comment on above: Expected: 03/22/2024 (Approximate), Expi res: 03/22/2025 Start: 03-22-2024 End: 03-22-2024 Patient encounter procedure 03/22/2024 8:40 AM EST Office Visit [facility] [address] [place] [address] Jade Gale MD [address] [place] [address] [facility] Start: 01-17-2024 COVID-19 Vaccine ( season) COVID-19 Vaccine () [facility] Start: 01-17-2024 COVID-19 Vaccine () COVID-19 Vaccine () [facility] Start: 01-17-2024 COVID-19 Vaccine () COVID-19 Vaccine () [facility] Start: 01-17-2024 Influenza vaccination Influenza Vaccine [facility] Start: 09-18-2023 Medicare Annual Wellness Visit Medicare Annual Wellness Visit [facility] Start: 06-25-2023 End: 06-25-2023 Patient encounter procedure 06/25/2023 10:00 AM EST Office Visit [facility] - Family Medicine [address] [place] [address] Josh Ospina, [address] [facility] [place] [address] [facility] [facility] Start: 06-18-2023 End: 06-18-2024 Alanine aminotransferase [Enzymatic activity/volume] in Serum or Plasma by With P-5'-P Alanine Aminotransferase Lab Routine ASCVD (arteriosclerotic cardiovascular disease) Peripheral vascular disease (CMS/HCC) Essential hypertension Hyperlipidemia, unspecified hyperlipidemia type Other specified diabetes mellitus without complication, without long-term current use of insulin (CMS/HCC) Expected: 06/18/2023 (Approximate), Expires: 06/18/2024 [facility] Service Area Work Phone: Comment on [...] insulin (CMS/HCC) Expected: 06/18/2023 (Approximate), Expires: 06/18/2024 [facility] Work Phone: Comment on above: Expected: 06/18/2023 (Approximate), Expi res: 06/18/2024 Start: 06-18-2023 End: 06-18-2024 Basic metabolic 2000 panel - Serum or Plasma Basic Metabolic Panel Lab Routine ASCVD (arteriosclerotic cardiovascular disease) Peripheral vascular disease (CMS/HCC) Essential hypertension Hyperlipidemia, unspecified hyperlipidemia type Other specified diabetes mellitus without complication, without long-term current use of insulin (CMS/HCC) Expected: 06/18/2023 (Approximate), Expires: 06/18/2024 [facility] Work Phone: Comment on above: Expected: 06/18/2023 (Approximate), Expi res: 06/18/2024 Start: 06-18-2023 End: 06-18-2024 CBC panel - Blood by Automated count CBC Lab Routine ASCVD (arteriosclerotic cardiovascular disease) Peripheral vascular disease (CMS/HCC) Essential hypertension Hyperlipidemia, unspecified hyperlipidemia type Other specified diabetes mellitus without complication, without long-term current use of insulin (CMS/HCC) Expected: 06/18/2023 (Approximate), Expires: 06/18/2024 [facility] Work Phone: Comment on above: Expected: 06/18/2023 (Approximate), Expi res: 06/18/2024 Start: 06-18-2023 End: 06-18-2024 Lipid 1996 panel - Serum or Plasma Lipid Panel Lab Routine ASCVD (arteriosclerotic cardiovascular disease) Peripheral vascular disease (CMS/HCC) Essential hypertension Hyperlipidemia, unspecified hyperlipidemia type Other specified diabetes mellitus without complication, without long-term current use of insulin (CMS/HCC) Expected: 06/18/2023 (Approximate), Expires: 06/18/2024 [facility] Work Phone: Comment on above: Expected: 06/18/2023 (Approximate), Expi res: 06/18/2024 Start: 06-18-2023 FUV, Provider: Jade Gale, Status: Pen, Time: 9:00 AM FUV, Provider: Jade Gale, Status: Pen, Time: 9:00 AM [facility] Work Phone: Start: 05-13-2023 Glaucoma screening [facility] Start: 01-16-2023 COVID-19 Vaccine ( season) COVID-19 Vaccine ( season) [facility] Start: 01-16-2023 COVID-19 Vaccine () COVID-19 Vaccine () [facility] Start: 01-16-2023 COVID-19 Vaccine () COVID-19 Vaccine () [facility] Start: 01-05-2023 AOILIVC, Provider: CECILIA HHVI ULTRASOUND 01,[id number], Status: Pen, Time: 7:45 AM AOILIVC, Provider: CECILIA HHVI ULTRASOUND 01,[id number], Status: Pen, Time: 7:45 AM [facility] Work Phone: Start: 10-08-2022 FUV, Provider: Jade Gale, Status: Pen, Time: 8:40 AM FUV, Provider: Jade Gale, Status: Pen, Time: 8:40 AM [facility] 250 DO Work Phone: Start: 02-04-2022 FUV, Provider: Jade Gale, Status: Pen, Time: 8:30 AM FUV, Provider: Jade Gale, Status: Pen, Time: 8:30 AM [facility] 250 DO Work Phone: Start: 2015 RSV High Risk: (Elderly (60+) or Population) (1 - Risk 60-74 years 1-dose series) RSV High Risk: (Elderly (60+) or Population) (1 - Risk 60-74 years 1-dose series) [facility] Start: 10-19-2000 Screening for malignant neoplasm of colon Colon Cancer Screening 5 Year Sigmoidoscopy [facility] Start: 10-19-1973 Adult BMI Follow Up Plan Adult BMI Follow Up Plan [facility] Start: 10-19-1973 Hepatitis C screening Hepatitis C Screening [facility] Start: 10-19-1965 Diabetic foot examination Diabetes: Foot Exam [facility] Start: 10-19-1965 Glaucoma screening Diabetes: Retinopathy Screening [facility] Start: 1955 Hemoglobin A1c measurement Diabetes: Hemoglobin A1C [facility] Start: 1955 Lipid panel Lipid Panel [facility] Start: 1955 Medicare Annual Wellness Visit Medicare Annual Wellness Visit (AWV) [facility] Start: 1955 Screening for malignant neoplasm of colon [facility] End: 02-28-2025 Basic metabolic 2000 panel - Serum or Plasma Basic Metabolic Panel Lab Routine Essential hypertension 1 Occurrences starting 02/29/2024 until 02/28/2025 [facility] Comment on above: 1 Occurrences starting 02/29/2024 until 02/28/2025 End: 02-28-2025 CBC panel - Blood by Automated count CBC Lab Routine Normocytic normochromic anemia 1 Occurrences starting 02/29/2024 until 02/28/2025 [facility] Comment on above: 1 Occurrences starting 02/29/2024 until 02/28/2025 End: 02-28-2025 Hemoglobin A1c/Hemoglobin.total in Blood Hemoglobin A1c Lab Routine Type 2 diabetes mellitus with diabetic polyneuropathy, without long-term current use of insulin ([facility]) 1 Occurrences starting 02/29/2024 until 02/28/2025 [employer] Work Phone: Comment on above: 1 Occurrences starting 02/29/2024 until 02/28/2025 End: 05-02-2025 Microalbumin - Albumin: Creatinine Urine Ratio Microalbumin - Albumin: Creatinine Urine Ratio Lab Routine Type 2 diabetes mellitus with diabetic polyneuropathy, without long-term current use of insulin ([facility]) 1 Occurrences starting 05/02/2024 until 05/02/2025 [employer] Work Phone: Comment on above: 1 Occurrences starting 05/02/2024 until 05/02/2025 Immunizations Immunization Date Immunization Notes Care Provider Fa cili 03-23-2024 Influenza, High-dose , Quadrivalent Joshjose r Bermudezlong DO Work Phone: [facility] 02-05-2023 Influenza, High-dose , Quadrivalent Belkys Angelique [employer]INE SCIENCE INSTRUCTOR [facility] 02-05-2023 influenza virus vacc ine, unspecified formulation Joshjose r Ospina DO Work Phone: [facility] 04-14-2022 pneumococcal conjuga te vaccine, 13 valent Belkys Angelique [employer] SCIENCE INSTRU[employer] [facility] 04-14-2022 Prevnar 20 0.5 ML Intramuscular Suspension Prefilled Syringe Josh Ospina Work Phone: [facility] Work Phone: 02-18-2021 Pfizer-BioNTech COVI D-19 Vacc 30 MCG/0.3ML Intramuscular Suspension Josh Daileyng Work Phone: [facility] 08-08-2020 Pfizer-BioNTech COVI D-19 Vacc 30 MCG/0.3ML Intramuscular Suspension Josh [facility]ileyng [facility] DO Work Phone: 08-05-2020 Pfizer Purple Cap SARS-CoV-2 Jade Gale MD Work Phone: [facility] Work Phone: 07-18-2020 Moderna COVID-19 Vac cine 100 MCG/0.5ML Intramuscular Suspension Josh Daileyng [facility] DO Work Phone: 07-18-2020 Pfizer-BioNTech COVI D-19 Vacc 30 MCG/0.3ML Intramuscular Suspension Josh Bermudezlong Work Phone: [facility] 250 DO Work Phone: 07-16-2020 COVID-19, mRNA, LNP- S, PF, 30mcg/0.3mL Dose Belkys Angelique EQUINE SCIENCE INSTRUCTOR [facility] 05-08-2020 pneumococcal polysaccharide vaccine, 23 valent Josh Sanchez [employer] Work Phone: [facility] 02-16-2020 influenza virus vacc ine, unspecified formulation Josh G [employer] Work Phone: [facility] [employer] DO Work Phone: 02-16-2020 influenza, injectabl e, quadrivalent, preservative free Jade Gale MD Work Phone: [facility] Work Phone: 02-16-2020 influenza, seasonal, injectable Belkys Angelique [facility] 06-29-2019 zoster vaccine recombinant Josh G [employer] Work Phone: [facility] [employer] DO Work Phone: 04-28-2019 zoster vaccine recombinant Josh G [employer] Work Phone: [facility] [employer] DO Work Phone: 03-18-2019 influenza virus vacc ine, unspecified formulation Josh G [employer] Work Phone: [facility] [employer] DO Work Phone: 03-18-2019 influenza, seasonal, injectable Belkys Angelique [facility] 03-02-2019 influenza, injectabl e, quadrivalent, contains preservative Josh G [employer] [facility] Phone: [facility] Work Phone: 04-13-2018 Influenza, injectabl e, Madin Myla Canine Kidney, preservative free, quadrivalent Josh G [employer] Work Phone: [facility] [employer] DO Work Phone: 03-18-2018 influenza virus vacc ine, unspecified formulation Josh G [employer] Work Phone: [facility] [address] DO Work Phone: 04-20-2017 influenza, injectabl e, quadrivalent, preservative free Josh Bermudezlong Work Phone: [place] [address] DO Work Phone: 03-31-2017 influenza, injectabl e, quadrivalent, preservative free Josh Bermudezlong Work Phone: [place] [address] DO Work Phone: 03-26-2017 influenza virus vacc ine, unspecified formulation [facility] 03-18-2017 influenza virus vacc ine, unspecified formulation Josh Bermudezng Work Phone: [place] [address] DO Work Phone: 02-16-2016 influenza virus vacc ine, unspecified formulation Josh Sanchez [place] Work Phone: [place] [address] DO Work Phone: 03-18-2015 influenza, seasonal, injectable Josh Sanchez [place] Work Phone: [place] [address] DO Work Phone: 02-15-2015 influenza virus vacc ine, unspecified formulation Josh Sanchez [facility]ng Work Phone: [place] [address] DO Work Phone: 07-04-2014 pneumococcal conjuga te vaccine, 13 valent Josh Sanchez [place] Work Phone: [place] [address] DO Work Phone: 07-04-2014 tetanus toxoid, redu leonel diphtheria toxoid, and acellular pertussis vaccine, adsorbed Josh Sanchez [place] Work Phone: [place] [address] DO Work Phone: 02-22-2014 influenza virus vacc ine, whole virus Josh Sanchez [place] Work Phone: [facility] 250 DO Work Phone: 07-18-2013 influenza virus vacc ine, unspecified formulation Josh Sanchez [place] Work Phone: [facility] DO Work Phone: 05-18-2011 influenza virus vacc ine, unspecified formulation Belkys Angelique [facility] 03-18-2011 influenza virus vacc ine, unspecified formulation Belkys Angelique [facility] 05-18-2009 influenza virus vacc ine, unspecified formulation Belkys Angelique [facility] 03-18-2009 influenza virus vacc ine, unspecified formulation Josh Sanchez [place] Work Phone: [facility] 250 DO Work Phone: influenza virus vacc [place], unspecified formulation Josh Bermudezlong Work Phone: [facility] 250 DO Work Phone: Comment on above: 2011Mar [id number] Payers Date Payer Category Payer Commercial Indemnity [facility] [id number] 2022 Self-pay [id number] 2022 Unknown 2020 Medicare [id number] 2020 Medicare [id number] 1959 Medicare [id number] 1959 Self-pay [id number] 1959 Unknown [id number] 1955 Unknown [id number] 2.16.840.1.180242.3.579.2.3 56 1955 Unknown [id number] 2.16.840.1.397301.3.579.2.3 56 1955 Unknown [id number] 2.16.840.1.461714.3.579.2.5 93 1955 Unknown [id number] 2.16.840.1.435003.3.579.2.5 93 1955 Unknown [id number] 2.16.840.1.067180.3.579.2.5 93 1955 Unknown [id number] 2.16.840.1.525981.3.579.2.5 93 1955 Unknown [id number] 2.16.840.1.209295.3.579.2.5 93 1955 Unknown [id number] 2.16.840.1.978780.3.579.2.5 93 1955 Unknown [id number] 2.16.840.1.427352.3.579.2.5 93 1955 Unknown [id number] 2.16.840.1.567773.3.579.2.5 93 1955 Unknown [id number] 2.16.840.1.789329.3.579.2.1 068 1955 Unknown [id number] 2.16.840.1.750844.3.579.2.1 244 1955 Unknown [id number] 2.16.840.1.291310.3.579.2.1 244 1955 Unknown [id number] 2.16.840.1.959091.3.579.2.1 286 1955 Unknown [id number] 2.16.840.1.017593.3.579.2.1 286 1955 Unknown [id number] 2.16.840.1.072360.3.579.2.1 286 1955 Unknown [id number] 2.16.840.1.351867.3.579.2.7 27 1955 Unknown [id number] 2.16.840.1.984229.3.579.2.7 27 1955 Unknown [id number] 2.16.840.1.335182.3.579.2.7 27 1955 Unknown [id number] 2.16.840.1.930376.3.579.2.7 27 1955 Unknown [id number] 2.16.840.1.395550.3.579.2.7 27 1955 Unknown [id number] 2.16.840.1.038705.3.579.2.7 27 1955 Unknown [id number] 2.16.840.1.906320.3.579.2.7 27 1955 Unknown [id number] 2.16.840.1.116077.3.579.2.7 27 1955 Unknown [id number] 2.16.840.1.931828.3.579.2.7 27 1955 Unknown [id number] 2.16.840.1.129057.3.579.2.7 27 Unknown [id number] 2.16.840.1.267922.3.579.2.5 31 Unknown [id number] 2.16.840.1.271291.3.579.2.5 31 Social History Date Type Detail Facility Start: 03-19-2022 End: 05-26-2023 Alcohol use Alcohol use [facility] 250 DO Work Phone: Comment on above: 1-2 cups of coffee d gurpreet; Start: 03-19-2022 End: 05-26-2023 Sex Assigned At [facility] [employer] Other Start: 04-08-2019 End: 03-19-2022 Tobacco smoking status NHIS Ex-smoker (finding) [facility] Start: 1955 Sex Assigned At Male [facility] Start: 03-19-1974 End: 05-09-1996 History of tobacco use Current smoker [facility] Work Phone: Start: 03-19-1974 End: 05-09-1996 History of tobacco use Cigarette Smoker [facility] Work Phone: Start: 03-19-2022 End: 05-26-2023 Tobacco use and exposure Smokeless tobacco non-user [facility] Work Phone: Start: 06-18-2023 End: 05-02-2024 Alcohol intake Current drinker of alcohol (finding) [facility] Work Phone: Start: 1955 Sex Assigned At Not on file [facility] Work Phone: Start: 06-08-2023 End: 03-22-2024 Exposure to SARS-CoV-2 (event) Not sure [facility] Has the [employer], or [employer] threatened to shut off services in your home in past 12Mo No [facility] Do you belong to any clubs or organizations such as sikhism groups, unions, fraternal or athletic groups, or school groups? Yes [facility] Are you now , , , , never or living with a partner? [facility] How often to you hav e a drink containing alcohol? 4 or more times a week [facility] How many standard dr inks containing alcohol do you have on a typical day? 1 or 2 [facility] How often do you hav e 6 or more drinks on 1 occasion? Less than monthly [facility] [facility] How hard is it for y ou to pay for the very basics like food, housing, medical care, and heating Not hard at all [facility] [facility] Do you feel stress - tense, restless, nervous, or anxious, or unable to sleep at night because your mind is troubled all the time - these days [OSQ] Not at all [facility] Start: 03-20-2022 Alcohol Comment Occasional [facility] How hard is it for y ou to pay for the very basics like food, housing, medical care, and heating Not very hard [facility] Start: 03-27-2022 [facility] Never smoked tobacco (finding) [facility] Start: 12-21-2014 Sex Male (finding) [facility] Medical Equipment Procedure Code Equipment Code Equipment Origin al Text Equipment Identifier Dates Accu-Chek Carley Plus test strips TEST ONCE DAILY [id number] End: 06-29-2023 Accu-Chek Fastcl ix Lancet Drum USE ONCE DAILY DIRECTED [id number] End: 06-29-2023 Accu-Chek FastCl ix Lancing Device [id number] End: 07-02-2023 Accu-Chek Carley Plus test strips TEST ONCE DAILY [id number] Start: 06-29-2023 End: 07-02-2023 Accu-Chek Fastcl ix Lancet Drum USE ONCE DAILY DIRECTED [id number] Start: 06-29-2023 End: 07-02-2023 Accu-Chek Carley Plus test strips TEST ONCE DAILY [id number] Start: 07-03-2023 Accu-Chek Fastcl ix Lancet Drum USE ONCE DAILY DIRECTED [id number] Start: 07-03-2023 Accu-Chek FastCl ix Lancing Device [id number] Start: 07-03-2023 Accu-Chek Carley Plus test strips TEST ONCE DAILY [id number] Start: 07-03-2023 Accu-Chek Fastcl ix Lancet Drum USE ONCE DAILY DIRECTED [id number] Start: 07-03-2023 Clinical Notes 07-24-2021 to 05-02-2024 Josh Ospina, DO - 05/02/2024 9:30 AM Sloane Gale MD - 03/22/2024 8:40 AM ESTPatient InstructionsTelephone Encounter - Kelly Brandt - 02/29/2024 11:37 AM EDTPatient Instructions Note Date & Type Note Facility 05-02-2024 Note Patient Education Urology Hypogonadism, Male Male hypogonadism is a condition of having a level of testosterone that is lower than normal. Testosterone is a chemical, or hormone, that is made mainly in the testicles. In boys, testosterone is responsible for the development of male characteristics during puberty. These include: ??? Making the penis bigger. ??? Growing and building the muscles. ??? Growing facial hair. ??? Deepening the voice. In adult men, testosterone is responsible for maintaining: ??? An interest in sex and the ability to have sex. ??? Muscle mass. ??? Sperm production. ??? Red blood cell production. ??? Bone strength. Testosterone also gives men energy [...] the causes? This condition is caused by: ??? A natural decrease in testosterone that occurs as a man grows older. This is the main cause of this condition. ??? Use of medicines, such as antidepressants, steroids, and opioids. ??? Diseases and conditions that affect the testicles [...] symptoms? Common symptoms of this condition include: ??? Loss of interest in sex (low sex drive). ??? Inability to have or maintain an erection (erectile dysfunction). ??? Feeling tired (fatigue). ??? Mood changes, like irritability or depression. ??? Loss of muscle and body hair. ??? Infertility. ??? Large breasts. ??? Weight gain (obesity). How is this diagnosed? Your health care provider can diagnose hypogonadism based on: ??? Your signs and symptoms. ??? A physical exam to check your testosterone [...] replacement therapy. Testosterone can be given by: ??? Injection or through pellets inserted under the skin. ??? Gels or patches placed on the skin or in the mouth. Testosterone therapy is not for everyone. It has risks and side effects. Your health care provider will consider your medical history, your risk for prostate cancer, your age, and your symptoms before putting you on testosterone replacement therapy. Follow these instructions at home: ??? Take yyvm-wvh-jtzegua and prescription medicines only as told by your health care provider. ??? Eat foods that are high in fiber, such as beans, whole grains, and fresh fruits and vegetables. Limit foods that are high in fat and processed sugars, such as fried or sweet foods. ??? If you drink alcohol: ? Limit how much you have to 0?2 drinks a day. ? Know how much alcohol is in your drink. In the [place] one drink equals one 12 oz bottle of beer (355 mL), one 5 oz glass of wine (148 mL), or one 1? oz glass of hard liquor (44 mL). ??? Return to your normal activities as told by your health care provider. Ask your health care provider what activities are safe for you. ??? Keep all follow-up visits. This is important. Contact a health care provider if: ??? You have any of the signs or symptoms of low testosterone. ??? You have any side effects from testosterone therapy. Summary ??? Male hypogonadism is a condition of having a level of testosterone that is lower than normal. ??? The natural drop in testosterone production that occurs with age is the most common cause of this condition. ??? Low testosterone can also be caused by many diseases and conditions that affect the testicles and the making of testosterone. ??? This condition is treated with testosterone replacement therapy. ??? There are risks and side effects of testosterone therapy. Your health care provider will consider your age, medical history, symptoms, and risks for prostate cancer before putting you on testosterone therapy. This information is not intended to replace advice given to you by your health care provider. Make sure you discuss any (more content not included)... [facility] 05-02-2024 History of Present illness Narrative Subjective Patient ID: Mike Florentino is a 68 y.o. male. Right presents today for diabetic and cardiovascular recheck. He is taking his medications. He is not having any side effects. He is seeing the barge captain. Does have intermittent bilateral thigh pain that happens randomly. He does not get leg pain when he does exercise. The following portions of the patient's history were reviewed and updated as appropriate: allergies, current medications, past family history, past medical history, past social history, past surgical history, problem list, and medication reconciliation was completed including current medication and post discharge medication. Review of Systems Constitutional: Negative. HENT: Negative. Respiratory: Negative. Cardiovascular: Negative. Genitourinary: Negative. Musculoskeletal: Positive for myalgias. Neurological: Negative. Psychiatric/Behavioral: Negative. Objective Physical Exam Vitals reviewed. Exam conducted with a financial examiner present (Jagruti Dumont MS3). Constitutional: General: He is not in acute distress. Appearance: Normal appearance. He is obese. He is not ill-appearing. HENT: Head: Normocephalic. Eyes: Extraocular Movements: Extraocular movements intact. Conjunctiva/sclera: Conjunctivae normal. Cardiovascular: Rate and Rhythm: Normal rate and regular rhythm. Pulses: Normal pulses. Heart sounds: Normal heart sounds. No murmur heard. Pulmonary: Effort: Pulmonary effort is normal. No respiratory distress. Breath sounds: Normal breath sounds. No wheezing, rhonchi or rales. Abdominal: General: Bowel sounds are normal. Palpations: Abdomen is soft. Tenderness: There is no abdominal tenderness. Musculoskeletal: Cervical back: Neck supple. Neurological: General: No focal deficit present. Mental Status: He is alert. Psychiatric: Attention and Perception: Attention normal. Mood and Affect: Mood and affect normal. Speech: Speech normal. Behavior: Behavior normal. Cognition and Memory: Cognition normal. Judgment: Judgment normal. Assessment/Plan Mike was seen today for diabetes. Diagnoses and all orders for this visit: Type 2 diabetes mellitus with diabetic polyneuropathy, without long-term current use of insulin ([facility]) - Microalbumin - Albumin: Creatinine Urine Ratio; Future His A1c was very good at 6.7%. Continue current regimen. Check ACR Essential hypertension Blood pressure at goal. Continue current regimen Peripheral vascular disease ([facility]) Stable. His thigh pain does not seem to be claudication. Can do exercise without leg pain. ASCVD (arteriosclerotic cardiovascular disease) Stable. Follow up with Cardiology. Class 1 obesity due to excess calories with serious comorbidity and body mass index (BMI) of 30.0 to 30.9 in adult He is slightly obese. He would benefit from weight loss. Diet exercise and weight loss discussed. 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 documented in this encounter [facility] Work Phone: 03-22-2024 Instructions Buffy Funez LPN [...] work Follow up documented in this encounter [facility] Work Phone: 02-29-2024 Miscellaneous Notes PATIENT IS COMING IN 05/02 AND WOULD LIKE LABS SENT TO [facility] PLEASE AND THANKK YOU [facility] 02-29-2024 Telephone encounter Note PATIENT IS COMING IN 05/02 AND WOULD LIKE LABS SENT TO [facility] PLEASE AND THANKK YOU [facility] 12-28-2023 Note Patient Education Urology Hypogonadism, Male [...] Follow these instructions at home: ? Take [id number] and prescription medicines only as told by [...] provider. Document Revised: (more content not included)... [facility] 07-02-2023 Miscellaneous Notes Pt called and needs all GUL[employer] TESTING supplies sent to [facility] due to medicare only covering them from there. documented in this encounter [facility] 07-02-2023 Telephone encounter Note Pt called and needs all GULOSE TESTING supplies sent to [facility] due to medicare only covering them from there. [facility] 07-01-2023 Miscellaneous Notes Pt called [...] was going on documented in this encounter [facility] 07-01-2023 Telephone encounter Note Pt called yaritza cedeno called him stated his insurance is not covering his lancets or strips there wanted to know if you could point him in the right direction as he is not sure [facility] 07-01-2023 Telephone encounter Note It sounds like a formulary issue. They should cover some type of glucometer and test strips. Have him check his formulary and see which brand is covered and then let us know. [employer] 07-01-2023 Telephone encounter Note He did say when he got home he was going to call his insurance and see what was going on [employer] 06-25-2023 History of Present illness Narrative Subjective Patient ID: Mike Florentino is a 67 y.o. male. Mike presents today to discuss several issues regarding his medications. He had labs done ordered by the barge captain at another facility and is here to [...] April 08, [address] Adames in [place] and it was normal. He has been getting pain in his thighs lately. His barge captain told him it was probably his circulation [...] polyneuropathy, without long-term current use of insulin ([facility]) We discussed his medications. He would like [...] is aware of that. Peripheral vascular disease ([facility]) Follow-up with cardiology as directed. Controlling risk factors are important. His lipids and CMP were essentially at goal. 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 Former smoker 7. Overweight Scribe Attestation By signing my name below, INarcisa LPN , Scribe attest that this documentation has been prepared under the direction and in the presence of Jade Gale MD. documented in this encounter [facility] Work Phone: 06-18-2023 Instructions Willian Sumner MA [...] of your visit. documented in this encounter [facility] Work Phone: 03-27-2022 Evaluation note Encounter Date [...] sleepiness, or poor response to treatment. . Presentain Other 03-09-2022 NotePROCEDURE: XR KNEE RT 4V [...] Electronically authenticated by: EILEEN QURESHI Date: 2021-07-24 17:01[facility] noteNo assessment information availableThe [facility] Work Phone: Evaluation note* Diagnosis ASCVD (arteriosclerotic cardiovascular disease)- Primary Unspecified cardiovascular disease Peripheral vascular disease (CMS/HCC) Unspecified peripheral vascular disease Essential hypertension Unspecified essential hypertension Hyperlipidemia, unspecified hyperlipidemia type Other specified diabetes mellitus without complication, without long-term current use of insulin (CMS/HCC) Former smoker Personal history of tobacco use, presenting hazards to health Overweight documented in this encounter [facility] Work Phone: Evaluation note* Diagnosis Type 2 diabetes mellitus with diabetic polyneuropathy, without long-term current use of insulin (CMS-HCC)- Primary Normocytic normochromic anemia Unspecified anemia Peripheral vascular disease (CMS-HCC) Unspecified peripheral vascular disease Thrombocytopenia ([facility]) Unspecified thrombocytopenia documented in this encounter [facility]* Diagnosis Type 2 diabetes mellitus with diabetic polyneuropathy, without long-term current use of insulin ([facility])- Primary documented in [facility] encounter [facility]* Diagnosis Type 2 diabetes mellitus with diabetic polyneuropathy, without long-term current use of insulin ([facility])- Primary [facility] Diagnosis Normocytic normochromic anemia- Primary Unspecified anemia Type 2 diabetes mellitus with diabetic polyneuropathy, without long-term current use of insulin ([facility]) Essential hypertension Unspecified essential hypertension documented in this encounter [facility]* Diagnosis ASCVD (arteriosclerotic cardiovascular disease)- Primary Unspecified cardiovascular disease Peripheral vascular disease ([facility]) Unspecified peripheral vascular disease Essential hypertension Unspecified [...] stated as uncontrolled documented in this encounter [facility] Work Phone: Evaluation note* Diagnosis Type 2 diabetes mellitus with diabetic polyneuropathy, without long-term current use of insulin ([facility])- Primary Essential hypertension Unspecified essential hypertension Peripheral vascular disease ([facility]) Unspecified peripheral vascular disease ASCVD (arteriosclerotic cardiovascular disease) Unspecified cardiovascular disease Class 1 obesity due to excess calories with serious comorbidity and body mass index (BMI) of 30.0 to 30.9 in adult Myalgia Unspecified myalgia and myositis documented in this encounter [facility] SystemHistory general Narrative - Reported* Type Description Date Medical History ROCK (obstructive sleep apnea) Medical History CAD in [place] artery Surgical History heart stent Surgical History left hip replacement Presentain Other InstructionsNot on filedocumented in this encounter [facility]Not on filedocumented in this encounter [facility] SystemInstructionsNot on filedocumented in this encounter [facility] SystemInstructionsNot on filedocumented in this encounter [facility] SystemInstructionsNot on filedocumented in this encounter [facility] SystemInstructionsNot on filedocumented in this encounter [facility] SystemInstructionsNot on filedocumented in this encounter [facility] SystemReason for referral (narrative)* Consultation (Routine) - Authorized Specialty Diagnoses / Procedures Referred By Contac t Referred To Contact Cardiology Diagnoses ASCVD (arteriosclerotic cardiovascular disease) Peripheral vascular disease (CMS/HCC) Essential hypertension Hyperlipidemia, unspecified hyperlipidemia type Other specified diabetes mellitus without complication, without long-term current use of insulin (CMS/HCC) Procedures Follow Up In Cardiology Jade Gale MD [address] [place] [address] [address], [address] [address] Jade Gale MD [address] [place] [address] [address], [address] [address] Referral ID Status Reason Start Date Expiration Date V isits Requested Visits Authorized [id number] Authorized 06/18/2023 06/17/2024 1 1 [facility] Work Phone: Summary Purpose Family History No [...] with tobacco use. 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, currently has stable [...] which is scheduled * Jade Gale MD, [facility] Additional Source Comments (unrecognized sect ion and content) No Status Records FoundNo Status Records FoundNo Status Records FoundNo Status Records FoundNo Status Records FoundNo Status Records FoundNo Status Records FoundNo Status Records FoundNo Status Records FoundNo Status Records Found INFORMATION SOURCE (unrecogn ized section and content) DATE CREATED AUTHOR 11/06/2017 [facility] DATE CREATED AUTHOR AUTHOR'S ORGANIZ ATION 02/16/2022 [facility] DATE CREATED AUTHOR AUTHOR'S ORGANIZ ATION 02/16/2022 [employer] DATE CREATED AUTHOR AUTHOR'S ORGANIZ ATION 05/08/2022 [facility] DATE CREATED AUTHOR AUTHOR'S ORGANIZ ATION [facility]2023 [facility] DATE CREATED AUTHOR AUTHOR'S ORGANIZ ATION 03/25/2023 [facility] DATE CREATED AUTHOR AUTHOR'S ORGANIZ ATION 04/19/2024 [facility] DATE CREATED AUTHOR AUTHOR'S ORGANIZ ATION 05/04/2024 [facility] DATE CREATED AUTHOR AUTHOR'S ORGANIZ ATION 05/04/2024 [facility] DATE CREATED AUTHOR AUTHOR'S ORGANIZ ATION 05/05/2024 [facility] Care Teams (unrecognized sec tion and content) Team Status: Active Member Role Status Dates Josh Ospina DO Primary Care Provider Active Team Status: Inactive Member Role Status Dates Josh BermudezrinkuDO gregg Primary Care Provider Active Start: March 22, 2024 End: March 22, 2024 Lyn Pollack NP Attending Provider Active Start: March 22, 2024 End: March 22, 2024 Team Status: Inactive Member Role Status Dates Josh Ospina DO Primary Care Provider Active Aryan Garcia MD Attending Provider Active Recycling Worker Relationship Specialty Start Date End Date Josh Ospina DO [address] [place] [address] PCP - General 05/18/99 Recycling Worker Relationship Specialty Start Date End Date Josh Ospina DO [address] [place] [address] PCP - General Family Medicine 03/19/22 Recycling Worker Relationship Specialty Start Date End Date Josh Ospina DO [address] [place] [address] PCP - General Family Medicine 03/19/22 Recycling Worker Relationship Specialty Start Date End Date Josh Ospina DO [address] [place] [address] PCP - General Family Medicine 03/19/22 Recycling Worker Relationship Specialty Start Date End Date Josh Ospina DO [address] [place] [address] PCP - General Family Medicine 03/19/22 Recycling Worker Relationship Specialty Start Date End Date Josh Ospina DO [address] [place] [address] PCP - General Family Medicine 03/19/22 Recycling Worker Relationship Specialty Start Date End Date Josh Ospina DO [address] [place] [address] PCP - General Family Medicine 03/19/22 Recycling Worker Relationship Specialty Start Date End Date Josh Ospina DO [address] [place] [address] PCP - General Family Medicine 03/19/22 Recycling Worker Relationship Specialty Start Date End Date Josh Ospina DO PCP - General 05/18/99 Recycling Worker Relationship Specialty Start Date End Date Jsoh Ospina DO [address] [place] [address] PCP - General Family Medicine 03/19/22 Recycling Worker Relationship Specialty Start Date End Date Josh Ospina DO [address] [place] [address] [address] PCP - General Family Medicine 03/19/22 Goals (unrecognized section and content) Goals may be documented in a n alternate section Reason for Visit (unrecogniz ed section and content) Reason Comments Diabetes 139 in the am Reason Comments Med Refill Reason Comments Follow-up 9 months Specialty Diagnoses / Procedures Referred By Contyulisa t Referred To Contact Cardiology Diagnoses ASCVD (arteriosclerotic cardiovascular disease) Peripheral vascular disease ([facility]) Essential hypertension Hyperlipidemia, unspecified hyperlipidemia type Other specified diabetes mellitus without complication, without long-term current use of insulin Procedures Follow Up In Cardiology Jade Gale MD [address] [address], [address] [address] Phone: tel: fax: Jade Gale MD [address] [facility] [address], [place] [id number] Phone: tel: fax: Referral ID Status Reason Start Date Expiration Date V isits Requested Visits Authorized [id number] Authorized 06/18/2023 06/17/2024 1 1 Reason Onset Date Comments Med Refill [...] BE BASED ON THE PRIMARY CLINICAL RECORDS. [employer] [facility]. provides no warranty or guarantee of the accuracy or completeness of information in this document.
[2024-05-06 08:10] LABS: Testosterone 529 ng/dL (264-916)
== END 2024-05-05 07:23 | disposition home or self-care (01) ==
LOC: LAB 07:24
PROVIDERS: PCP Family Medicine; Visit Provider Urology
DX: E29.1 Testicular hypofunction (principal)
CPT/HCPCS: 36415; 84403

== ENCOUNTER 2024-07-11 07:29 | Outpatient (OUT) | payer MEDICARE, OTHER, SELFPAY ==
[2024-07-12 04:07] LABS: Testosterone 237 ng/dL (264-916)
== END 2024-07-11 07:30 | disposition home or self-care (01) ==
LOC: LAB 07:31
PROVIDERS: PCP Family Medicine; Visit Provider Urology
DX: E29.1 Testicular hypofunction (principal)
CPT/HCPCS: 36415; 84403

== ENCOUNTER 2024-08-30 07:23 | Outpatient (OUT) | payer MEDICARE, OTHER, SELFPAY ==
--- OUTSIDE RECORDS SUMMARY | 2024-08-30 07:27 | XMS_ITS | CCD ---
Author Organization [facility] Care Team Providers Care Assembler Arranger Name Role Phone EILEEN PURVIS Unavailable Unavai lable JOSH OSPINA Unavailable Unavailable Laralong, Josh Sanchez Unavailable Unavailable Unavailable Unavailable Unavailable Baljinder, Dr. Jade Sanz Attending Shantel vailable [facility], Josh Aguilera Primary Care Unavailab clau Gale, Dr. Jade Sanz Referring Shantel vailable [employer] UniversityJosh Willy Primary Care Unavailab clau Gale, Dr. Jade Sanz Referring Shantel vailable Gale, Dr. Jade Sanz Attending Shantel vailable Aryan Garcia Unavailable DO Josh Ospina Primary Care Provider MD Aryan Garcia Attending Provider [phone] DR SHADY MOHAN Attending Unavailable JANELL, DR JOSH Sanchez Primary Care Unavailable FURLONG, DR JOSH Sanchze Consulting Unavailable DR SHADY MOHAN Admitting Unavailable DR SHADY MOHAN Consulting Unavailable FURLONG, DR JOSH Sanchez [...] Dr. Josh Aguilera Primary Care Unava ilable Furlong Josh GONGORA Primary Care Provider [employer] Josh GONGORA Primary Care Provider JADE GALE Attending Unavailable FURLONGJOSH Primary Care Unavailab le GALEJADE MONREAL Attending Unavailable GALEJADE MONREAL Referring Unavailable FURLONG, JOSH AGUILERA Primary Care Unavailab le JOSH OSPINA Attending Unavailable FURLONG, JOSH Sanchez Referring Unavailable FURLONG, JOSH Sanchez Primary Care Unavailable FURLONG, JOSH Sanchez Attending Unavailable FURLONG, JOSH Sanchez Referring Unavailable FURLONG, JOSH Sanchez Primary Care Unavailable FURLONG, JOSH Sanchez Attending Unavailable FURLONG, JOSH Sanchez Referring Unavailable FURLONG, JOSH Sanchez Primary Care Unavailable Shady MOHAN Attending Unavailable Shady MOHAN Attending Unavailable Josseline Kerr Attending Unavailable Shady MOHAN Admitting Unavailable Shady MOHAN Attending Unavailable Shady MOHAN Attending Unavailable FURLONGJOSH Referring Unavailable FURLONG, JOSH Sanchez Primary Care Unavailable Shanique Chiang Attending Unavailable AsaShanique beltre Admitting Unavailable Furlong, Josh Primary Care Unavailable Furlong Josh GONGORA Primary Care Provider [phone] Shanique Chiang MD Attending Provider [phone] [place] Josh GONGORA Primary Care Provider MOHAN, Shady R Attending Unavailable MOHAN, Shady R Attending Unavailable MOHAN, Shady R Attending Unavailable MOHAN, Shady R Attending Unavailable MOHAN, Shady R Attending Unavailable MOHAN, Shady R Attending Unavailable MOHAN, Shady R Attending Unavailable MOHAN, Shady R Attending Unavailable MOHAN, Shady R Attending Unavailable MOHAN, Shady R Admitting Unavailable MOHAN, Shady R Attending Unavailable MOHAN, Shady R Attending Unavailable MOHAN, Shady R Attending Unavailable Allergies Allergy Classification Reported Allergen(s) Allergy Type Date of Onset Reaction(s) Facility (20 sources) Ticagrelor; Translations: [Brilinta TABS] Drug Allergy 2 [facility] (3 sources) Ticagrelor; Translations: [TICAGRELOR] Drug Allergy 2 [place] [address] Repository (2 sources) Bee/Wasp/Ant venom; Translations: [Bee Stings] Propensity to adverse reactions (disorder) [facility] Repository (2 sources) No Known Medication Allergies; Translations: [No Known Medication Allergies] Propensity to adverse reactions (disorder) [facility] Repository Medications Current Medications Medication Drug Class(es) Dates Sig (Normalized) Sig (Original) clopidogrel 75 mg oral tablet (20 sources) P2Y12 Platelet Inhibitor Start: 04-08-2019 End: 01-11-2025 take 1 tablet by mouth in the morning clopidogreL (PLAVIX) 75 mg tablet Take 1 tablet (75 mg total) by mouth in the morning. 03/07/2022 Active Clopidogrel Bisu lfate Active dapagliflozin 10 mg oral tablet (18 sources) Sodium-Glucose Cotransporter 2 Inhibitor Start: 06-26-2023 End: 07-11-2024 take 1 tablet by mouth in the morning dapagliflozin propanediol (FARXIGA) 10 mg tablet Take 1 tablet (10 mg total) by mouth in the morning. 30 tablet 5 07/11/2024 Active empagliflozin 10 mg oral tablet (6 sources) Sodium-Glucose Cotransporter 2 Inhibitor Start: 06-15-2020 End: 06-18-2023 take 1 tablet by mouth once daily empagliflozin (Jardiance) 10 mg Take 1 tablet (10 mg) by mouth once daily. 0 06/15/2020 06/18/2023 Discontinued (Therapy completed) fluticasone propionate 0.05 mg/actuat metered dose nasal spray (16 sources) Corticosteroid fluticasone propionate (FLONASE) 50 mcg/actuation nasal spray fluticasone propionate 50 mcg/actuation nasal spray,suspension Active fluticasone prop ionate (FLONASE) 50 mcg/actuation nasal spray fluticasone propionate 50 mcg/actuation nasal spray,suspension 0 Active hydroxychloroquine sulfate 200 mg oral tablet (20 sources) Antimalarial, Antirheumatic Agent Start: 04-08-2019 take 1 tablet by mouth in the morning, then take 1 tablet by mouth at bedtime hydrOXYchloroQUINE (PLAQUENIL) 200 mg tablet Take 1 tablet (200 mg total) by mouth in the morning and 1 tablet (200 mg total) before bedtime. 03/01/2022 Active meloxicam 7.5 mg oral tablet (8 sources) Nonsteroidal Anti-inflammatory Drug Start: 02-16-2024 take 1 tablet by mouth in the morning meloxicam (MOBIC) 7.5 mg tablet Take 1 tablet (7.5 mg total) by mouth in the morning. 02/16/2024 Active metFORMIN hydrochloride 500 mg oral tablet (20 sources) Biguanide Start: 08-09-2024 take 2 tablets by mouth in the morning, then take 2 tablets by mouth at mealtime metFORMIN (GLUCOPHAGE) 500 mg tablet Take 2 tablets (1,000 mg total) by mouth in the morning and 2 tablets (1,000 mg total) in the evening. Take with meals. 360 tablet 1 08/09/2024 Active Start: 03-13-2020 End: 08-08-2024 take 2 tablets by mouth twice daily at mealtime metFORMIN (GLUCOPHAGE) 500 mg tablet TAKE 2 TABLETS BY MOUTH TWICE DAILY WITH FOOD 360 tablet 1 07/23/2024 08/08/2024 Discontinued (Reorder) Start: 04-08-2019 Metformin 1,00 0 mg Tablet Active 500 MG PO Twice daily April 08, 2019 12:00am Start: 04-08-2019 take 500 mg by mouth twice naldo ly Metformin Active 500 MG PO Twice daily April 08, 2019 12:00am Metformin Active nitroglycerin 0.4 mg sublingual tablet (16 sources) Nitrate Vasodilator nitroglyceri n (NITROSTAT) 0.4 [...] Not-Taki ng sildenafil 100 mg oral tablet (20 sources) Phosphodiesterase 5 Inhibitor si ldenafiL (VIAGRA) [...] Januvia Active tadalafil 5 mg oral tablet (4 sources) Phosphodiesterase 5 Inhibitor Start: 04-08-2019 take 1 tablet by mouth once daily as needed Tadalafil (Cialis) 5 mg Tablet Active 5 MG PO Daily as needed for Erectile Dysfunction April 08, 2019 12:00am Kaia Boyle-Eli g tamsulosin hydrochloride 0.4 mg oral capsule (20 sources) alpha-Adrenergic Fani Start: 07-10-2020 take 1 capsule by mouth once daily Tamsulosin 0.4 mg capsule Active 0.4 MG PO Daily April 04, 2024 12:00am 1 ml testosterone cypionate 200 mg/ml injection [...] aspirin 81 mg delayed release oral tablet (15 sources) Platelet Aggregation Inhibitor, Nonsteroidal Anti-inflammatory Drug Start: 04-08-2019 End: 04-08-2019 take 1 tablet by mouth once daily Aspirin 325 mg Tablet Discontinued 325 MG PO Daily April 08, 2019 12:00am April 08, 2019 11:19am Start: 04-08-2019 End: 04-04-2024 take 1 tablet by mouth once daily Aspirin (Aspir-81) 81 mg Tablet,Delayed Release (Dr/Ec) Discontinued 1 TAB PO Daily April 08, 2019 12:00am April 04, 2024 9:12am Aspirin Active canagliflozin 300 mg oral tablet (3 sources) Sodium-Glucose Cotransporter 2 Inhibitor Start: 06-22-2023 End: 06-26-2023 take 1 tablet by mouth in the morning canagliflozin (INVOKANA) 300 mg tablet Indications: Type 2 diabetes mellitus with diabetic polyneuropathy, without long-term current use of insulin ([facility]-H[facility]) Take 1 tablet (300 mg total) by mouth in the morning. 30 tablet 5 06/22/2023 06/26/2023 Discontinued (Formulary change) gabapentin 300 mg oral capsule (13 sources) Anti-epileptic Agent Start: 04-08-2019 End: 04-04-2024 take 1 capsule by mouth at bedtime gabapentin (NEURONTIN) 300 mg capsule Indications: Diabetic polyneuropathy associated with type 2 diabetes mellitus (CMS-HCC) take 1 capsule by mouth at bedtime 30 capsule 2 03/10/2023 06/25/2023 Discontinued (Therapy completed) Gabapentin Activ e glimepiride 2 mg oral tablet (4 sources) Sulfonylurea Start: 04-08-2019 End: 04-08-2019 take 1 tablet by mouth once daily in the morning Glimepiride 2 mg Tablet Discontinued 2 MG PO Every morning April 08, 2019 12:00am April 08, 2019 11:19am Glimepiride Acti ve Suprep Bowel Prep . (1 source) Start: 03-29-2014 Suprep Bowel P rep . as directed Orally as directed for 1 dose(s) Mar, Not-Taking 24 hr trandolapril 4 mg / verapamil hydrochloride 240 mg extended release oral tablet (4 sources) Angiotensin Converting Enzyme Inhibitor, Calcium Channel Fani Start: 04-08-2019 End: 04-08-2019 take 1 tablet by mouth once daily Trandolapril-Verap malou (Tarka) 4-240 mg Tablet, Ir - Er, Biphasic 24hr Discontinued 1 TAB PO Daily April 08, 2019 12:00am April 08, 2019 11:20am Tarka Not-Taking Problems Active Problems Problem Classification Problem Date Documented Date Episodic/Chronic Coagulation and hemorrhagic disorders (16 sources) Thrombocytopenic disorder; Translations: [Thrombocytopenia, unspecified] Onset: 06-25-2023 06-25-2023 Chronic Coronary atherosclerosis and other heart disease (20 sources) Arteriosclerotic vascular disease; Translations: [Cardiovascular disease, unspecified] Onset: 03-19-2022 06-18-2023 Chronic Diabetes mellitus with complications (20 sources) Type 2 diabetes mellitus with diabetic neuropathy, unspecified; Translations: [Type 2 diabetes mellitus with diabetic polyneuropathy] Onset: 01-12-2022 03-19-2022 Chronic Diabetes mellitus without [...] hypertension] Onset: 07-16-2021 Chronic Hyperplasia of prostate (20 sources) Benign prostatic hyperplasia with lower urinary [...] Onset: 10-26-2021 Chronic Other male genital disorders (17 sources) Male erectile dysfunction, unspecified; Translations: [Impotence of organic origin] Onset: 10-29-2021 03-19-2022 Chronic Other nutritional; endocrine; and metabolic disorders (16 sources) Obesity; Translations: [Obesity, unspecified] Onset: 03-19-2022 [...] Onset: 05-26-2023 05-26-2023 Chronic Residual codes; unclassified (20 sources) Obstructive sleep apnea syndrome; Translations: [Obstructive sleep apnea (adult) (pediatric)] Onset: 03-19-2022 03-22-2024 Chronic Residual codes; unclassified (2 sources) Obstructive sleep apnea (adult) (pediatric); Translations: [Obstructive sleep apnea (adult)(pediatric)] Chronic Residual codes; unclassified (2 sources) Sleep apnea, unspecified; Translations: [Sleep apnea, unspecified] Onset: 05-26-2023 Chronic Residual codes; unclassified (1 source) Family history of colorectal cancer; Translations: [Family hx of colorectal cancer] Episodic Rheumatoid arthritis and related disease (4 sources) Rheumatoid arthritis 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; Translations: [RA W/RH FACTOR MX SITE NO ORGAN/SYS] Onset: 07-13-2021 Chronic Thyroid disorders (1 source) Hypothyroidism Onset: 05-04-2023 Chronic Unclassified (1 source) dicuss medication Onset: 06-25-2023 Unclassified (16 sources) Hypogonadism; Translations: [Hypogonadism] Onset: 10-06-2017 03-19-2022 Past or Other Problems Problem Classification Problem Date Documented Date Episodic/Chronic Deficiency and other anemia (1 source) Anemia; Translations: [Anemia, unspecified] Onset: 06-19-2023 06-19-2023 Episodic Deficiency and other anemia (17 sources) Normocytic normochromic anemia; Translations: [Anemia, unspecified] Onset: 06-19-2023 06-25-2023 Episodic Mood disorders (16 sources) Mood disorders Onset: 05-04-2023 Resolved: 05-02-2024 05-04-2023 Other aftercare (1 source) Other intermediate (current) drug therapy; Translations: [[employer] CURRENT DRUG THERAPY] Onset: 07-16-2021 Episodic Other and unspecified benign neoplasm (16 sources) Tubular adenoma ; Translations: [Benign neoplasm, [...] Onset: 07-06-2017 Episodic Other connective tissue disease (16 sources) Right rotator cuff syndrome; Translations: [Unspecified rotator cuff tear or rupture of right shoulder, not specified as traumatic] Onset: 03-19-2022 03-19-2022 Episodic Other connective tissue disease (16 sources) Impingement syndrome of shoulder region; Translations: [Impingement syndrome of unspecified shoulder] Onset: 03-19-2022 03-19-2022 Episodic Other connective tissue disease (16 sources) Radial styloid tenosynovitis; Translations: [Radial styloid [...] conditions (not mental disorders or infectious disease) (20 sources) History of adenomatous polyp of colon; Translations: [Encounter for screening for malignant neoplasm of colon] Onset: 01-10-2022 04-08-2019 Episodic Screening and history of mental health and substance abuse codes (11 sources) Ex-smoker; Translations: [Personal history of tobacco use] Onset: 06-18-2023 06-18-2023 Episodic Unclassified (2 sources) Onset: 06-18-2023 Resolved: 03-22-2024 06-18-2023 Results Test Name Value Interpretation Reference Range Facility Urology Office/Clinic Noteon 07-18-2024 Urology Office/Clinic Note Urology Office/Clinic Note Chief Complaint Follow up with T level HPI Staff 68yr old male pt here to discuss TRT changes. Last inj 06/27/24. Previous Dx: hypogonadism, BPH with obstruction, impotence *Testosterone IM 300mg q4wks, tamsulosin 0.4mg bid, sildenafil 100mg prn T Level: 10/28/22 - 377 06/19/23 - 329 & 7.9 free 12/17/23 - 239 05/05/24 - 529 07/11/24 - 237 IPSS: 27, HARSHA: 15 Denies dysuria, denies hematuria. Denies abdominal, denies flank pain. Wants to discuss Rezum for the prostate Offered PVR due to high IPSS score but pt states he will wait to see if the doctor wants it or not. History of Present Illness Tests reviewed: reviewed UA, testosterone level I have reviewed the previous health [...] Physical Exam Vitals & Measurements T: 37 ???C(Temporal Artery) HR: 70(Peripheral) RR: 16 BP: 129/70 HT: 74 in HT: 188 cm WT: 96 kg WT: 211.644 lb BMI: 27.16 General Appearance: alert, no distress, well nourished, well developed male. Assessment/Plan HARSHA 15. 1. Hypogonadism male (E29.1: Testicular hypofunction) Testosterone (ref range 264-916): 04/26/22 - 229 10/28/22 - 377 06/19/23 - 329 & 7.9 free 12/17/23 - 239 04/18/24 - HGB 12.5 L 07/11/24 - 237 Stopped Androgel 12/2023. Has been receiving Testosterone IM 300 mg q4ks. Last injection given 06/27/24. Current T level has decreased from prior. Advised pt dosage will need adjusted to maintain level wnl. Risks/benefits discussed. -Increase Testosterone IM to 400 mg q4ks. Next injection to be given 07/25/24. -F/u in 4 mos w/ testosterone and prolactin 2. BPH with urinary obstruction (N40.1: Benign prostatic hyperplasia with lower urinary tract symptoms) PSA: 12/11/20 - 0.69 04/26/22 - 0.43 12/28/23 - 0.50 S/p Evolve of prostate 2009. [1] IPSS 27. UA today negative for blood and infection. Taking Tamsulosin 0.4 mg bid. Reports stream is weak. Feels urinary habits have become more bothersome. Discussed starting Dutasteride. Possibles SEs and mechanism of action discussed. Pt wishes to try this. Also shares interest in Rezum. Educated pt on details of procedure and risks/benefits. -Cont Tamsulosin bid. Pt to call for refills. -Start Dutasteride 0.5mg qd. Rx sent to [facility]. Pt aware medication takes a few months to take effect. -Consider Rezum/turp in future 3. Impotence (N52.9: Male erectile dysfunction, unspecified) Sildenafil 100 mg prn. [2] Follow-up With When Contact Information JAMSHID VILLAVICENCIO, Shady Rizo, URL [facility] [address] , [place] [address]- [id number] Additional Instructions: 4 mos w/ testosterone and prolactin levels Patient Education Hypogonadism, Male I, Val Alston, personally scribed for Dr. Mohan on 07/18/2024 16:10:00. . Documentation recorded by the scribe, Val Alston, accurately reflects the services(s) I performed and decisions made by me. Authenticated by Dr. Mohan on 07/18/2024 16:11:34. Problem List/Past Medical History Ongoing Arthritis BPH [...] mg/mL intramuscular solution, 300 mg, IntraMuscular, q4wk Depo-Testosterone 200 mg/mL intramuscular solution, 300 mg, IntraMuscular, q4wk Depo-Testosterone 200 mg/mL intramuscular solution, 300 mg, IntraMuscular, q4wk Farxiga 10 mg oral tablet, See Instructions Flomax 0.4 mg Cap, 0.4 mg= 1 cap(s), Oral, BID, 3 refills gabapentin 300 mg Cap, 300 mg= 1 cap(s), Oral, Daily hydroxychloroquine 200 mg Tab, 200 mg= 1 tab(s) Caio (more content not included)... Normal [facility] Comment on above: Result Comment: Elec tronically Signed By: Shady MOHAN MD\.br\Date and Time Signed: 07/18/24 16:11 EST\.br\Electronically Co-Signed By: Val Alston.br\Date and Time Co-Signed: 07/18/24 16:10 EST Ambulatory Visit Summaryon 0 05-30-2024 Ambulatory Visit Summary Ambulatory Visit Summary MISHEL, MIKE Land :1955 Visit Date:05/30/2024 Ambulatory Visit Instructions Your Care Team Attending Physician - Shady MHOAN MD Primary Care Physician - JOSH OSPINA DO This Is Your Medications List clopidogrel (clopidogrel 75 mg Tab) dapagliflozin (Farxiga 10 mg oral tablet) empagliflozin (Jardiance 10 mg oral tablet) gabapentin (gabapentin 300 mg Cap) hydroxychloroquine (hydroxychloroquine 200 mg Tab) meloxicam (meloxicam 7.5 mg Tab) metformin (metformin 500 mg Tab) ramipril (ramipril 10 mg Cap) rosuvastatin (Crestor 10 mg Tab) sildenafil (sildenafil 100 mg Tab) sitagliptin (Januvia 100 mg Tab) tamsulosin (Flomax 0.4 mg Cap) testosterone (testosterone cypionate 200 mg/mL IM Mavis) verapamil (verapamil 240 mg ER Tab) Procedures Performed Arthroplasty of the hip (03/01/2018), Carpal tunnel release (10/01/2017), Carpal tunnel release (09/17/2017), Arthroscopy of shoulder (08/06/2017), left shoulder arthroscopy (05/04/2014), Cystoscope (09/04/2009), CORONARY ARTERY STENT INSERTION x2, Hernia repair, STENT INSERTION RIGHT LEG. What to do next Scheduled Follow-Up Appointments Thursday 8:45 AM EST With: Where: [facility] [address] [address]- Thursday 8:15 AM EDT With: Shady MOHAN MD Where: [facility] [address] [address]- Medications What How Much When Instructions Unchanged clopidogrel (clopidogrel 75 mg Tab) 1 Tablets By Mouth Every day Unchanged dapagliflozin (Farxiga 10 mg oral tablet) See instructions Unchanged empagliflozin (Jardiance 10 mg oral tablet) 90 EA, take 1 tablet by mouth once daily Unchanged gabapentin (gabapentin 300 mg Cap) 1 Capsules By Mouth Every day Unchanged hydroxychloroquine (hydroxychloroquine 200 mg Tab) 1 Tablets Unchanged meloxicam (meloxicam 7.5 mg Tab) 1 [...] Mavis) 300 Milligram Intramuscular Every 4 weeks Unchanged verapamil (verapamil 240 mg ER Tab) 1 Tablets Allergies Bee Stings (Unknown) No Known Medication [...] for choosing us for your care. Normal [facility] Glucose Glucometer (dC) [M ass/Vol]Ordered By: Shanique Chiang on 05-04-2024 Glucose [Mass/Vol] Capillary blood glucose measurement by glucometer (mass/volume) [facility] Comment on above: Random Glucose Refer ence Range is dependent on time and content of last meal. Glucose of more than 200 mg/dL in a nonstressed, ambulatory subject supports the diagnosis of Diabetes Mellitus. Glucose Poct Glucometerson 1 07-05-2023 Commemt1 Glu2: Cleaned Meter Normal [facility] Comment on above: Result Comment: PERF ORMED BY: [facility] [address] [place] [address] PATHOLOGIST ONSITE CASE MANAGER VENECIA SANTO M.D. Performed By: #### G LUYASMANI #### Point of Care testing , Glucose [Mass/Vol] 134 mg/dL Normal [facility] Comment on above: Result Comment: [place] Glucose Reference Range is dependent on time and content of last meal. Glucose of more than 200 mg/dL in a nonstressed, ambulatory subject supports the diagnosis of Diabetes Mellitus. Performed By: #### G LUYASMANI #### Point of Care testing , No Panel InformationOrdered By: Shanique Chiang on 05-04-2024 Miscellaneous Pathology Test See comment [facility] Comment on above: See report. Scanned copy available in EMR. Bedside Glucose Comment Glu2: cleaned meter [facility] Pathology Request for Lab Co rpon 05-04-2024 Pathology Request for Lab [place] Normal [facility] Comment on above: Order Comment: PATHO LOGY GI SPECIMEN Result Comment: See report. Scanned copy available in EMR. PERFORMED BY: [place] [address] PATHOLOGIST ONSITE CASE MANAGER VENECIA SANTO M.D. Performed By: #### P ATH TO [facility] #### [address] Lipid profileon 05-02-2024 External Cholesterol 135 [facility] External Hdl Cholesterol 59 [facility] External Ldl (Calc) 61 [facility] External Triglycerides 35 Pr [facility] MICROALBUMIN - ALBUMIN:CREAT ININE URINE RATIOon 05-02-2024 ALB/CREAT RATIO NOT CALCULATED Normal 0.0-30.0 [facility] Comment on above: Result Comment: Result for Albumin/Creatinine Ratio cannot be reliably calculated because urine albumin and or urine creatinine is below the detection limit of the assay. Performed By: #### M ALBU #### [facility] ([id number]) [address], [address] [place] [address] Albumin DL <= 20 mg/L (U) [Mass/Vol] mg/dL Normal 0.0-1.9 [facility] Comment on above: Performed By: #### M ALBU #### [facility] ([id number]) [address], [address] [place] [address] URINE CREAT 24.53 mg/dL Normal [facility] Comment on above: Performed By: #### M ALBU #### [facility] ([id number]) [address] [place] [address] Urology Office/Clinic Noteon 05-02-2024 Urology Office/Clinic Note Urology Office/Clinic Note Chief Complaint f/u testosterone level HPI Staff 68yr old male pt here for 4mo f/u testosterone level check. Labs drawn at [facility] last week. Wants to discuss Flomax medication, and possibly switching due to side effects. Previous Dx: hypogonadism male, BPH with urinary obstruction, impotence *testosterone injection 300mg q4wks, tamsulosin 0.4mg bid, sildenafil 100mg PRN T Level: 10/28/22 - 377 06/19/23 - 329 & 7.9 free 12/17/23 - 239 Dysuria: denies Incomplete bladder emptying: denies Hematuria: [...] 329 & 7.9 free 12/17/23 - 239 04/04/24 - last inj 04/18/24 - HGB 12.5 L Stopped Androgel and started Testosterone IM 300 mg q4ks at prior OV. Waking occasionally with morning erections. Had labs drawn last wk at [facility], did not run. Cannot adjust dose since no recent level. Pt is due for his injection today. Will have pt receive inj today at same dosage and then get T level in the AM tomorrow. Follow up 6 mos with T level or sooner if needed. Pt understands and agrees with plan. -Receive injection today. -Get T level drawn tomorrow at [facility] (recalled). May adjust dose over the phone [...] [facility] [address], [place] [address]- Additional Instructions: 6 mos with T level Patient Education Hypogonadism, Male I, Kaia Valdez, personally scribed for Dr. Mohan on 05/02/2024 15:15:39. . Documentation recorded by the scribe, Kaia [...] Januvia 100 (more content not included)... Normal [facility] Comment on above: Result Comment: Elec tronically Signed By: Shady MOHAN MD\.br\Date and Time Signed: 05/02/24 15:19 EST\.br\Electronically Co-Signed By: Kaia Valdez\.br\Date and Time Co-Signed: 05/02/24 15:16 EST\.br\Electronically Co-Signed By: Kaia Valdez\.br\Date and Time Co-Signed: 05/02/24 15:16 EST Ambulatory Visit Summaryon 1 06-04-2023 Ambulatory Visit Summary Ambulatory Visit Summary MIKE FLORENTINO Emery :1955 Visit Date:04/04/2024 Ambulatory Visit Instructions Your [...] Follow-Up Appointments Thursday 1:30 PM EST With: Shady MOHAN MD Where: [facility] [address] Medications What How Much When Instructions Unchanged [...] you for choosing us for your care. [facility] Ambulatory Visit Summaryon 0 01-12-2024 Ambulatory Visit Summary Ambulatory Visit Summary MIKE FLORENTINO :1955 Visit Date:01/12/2024 Ambulatory Visit Instructions Your Diagnosis Hypogonadism male Your Care Team Attending Physician - Josseline Kerr MD Primary Care Physician - JOSH OSPINA [...] AM EDT With: Where: [facility] [address] [place] [address] [place] [address]- Thursday 8:45 AM EST With: JAMSHID VILLAVICENCIO, Shady Rizo Where: [facility] [address] [address]- Medications What How Much When Instructions Unchanged [...] for choosing us for your care. Normal [facility] Ambulatory Visit Summaryon 0 12-28-2023 Ambulatory Visit [...] AM EDT With: Where: [facility] [address] [address]- Thursday 8:45 AM EST With: Shady MOHAN MD Where: [facility] [address] [address]- You Need to Schedule the Following Appointments Follow Up with Shady MOHAN MD, URL When: Where: [facility] Shiel[address] [place], [place] [address]- Medications What How Much When Instructions Changed sildenafil (sildenafil 100 mg Tab) 1 Tablets By Mouth As Directed as needed for Other (see comment) Take 1 hour prior to sexual activity. Do not exceed more than 100 mg (1 tab) within 24 hours. Pickup at [facility] [address] Changed testosterone (testosterone cypionate 200 mg/ mL IM Mavis) 300 Milligram Intramuscular Every 4 weeks Pickup at [facility] [address] Unchanged clopidogrel (clopidogrel 75 mg Tab) [...] physician if questions or concerns Pharmacy Information [facility]: [address] [place], [place] [id number] [phone] What How Much When Comments Stop Taking [...] characteristics duri (more content not included)... Normal [facility] PSA Totalon 12-28-2023 Prostate specific Ag [Mass/Vol] 0.5 ng/mL Normal 0.1-3.5 [facility] Comment on above: Result Comment: The concentration of PSA determined by different manufacturers can vary due to differences in assay methods and reagent specificity. Values obtained from different assay methods cannot be used interchangeably. The methodology used for this result was chemiluminescence using [employer]'s Mangia Hybritech PSA reagent. Performed By: #### 1 [id number] #### [facility] Laboratory [address] [place] [address] Urology Office/Clinic Noteon 12-28-2023 Urology Office/Clinic Note [...] knows to get T level drawn exactly detention in-between injections before 10 am. 2. BPH [...] Shady Rizo, URL [facility] [address] [place] [address]- Additional Instructions: 4 mos with T level. [...] Oral, Daily Caio (more content not included)... Normal [facility] Comment on above: Result Comment: Elec tronically Signed By: JAMSHID VILLAVICENCIO, Shady R\.br\Date and Time Signed: 12/28/23 13:12 EDT\.br\Electronically Co-Signed By: Kaia Valdez\.br\Date and Time Co-Signed: 12/28/23 13:08 EDT Pre-Certification Formon Pre-Certification Form [id number]#1.0 0TIFF Normal [facility] Pre-Certification Formon Pre-Certification Form [id number]#1.0 0TIFF Normal [facility] Lab Reportson 06-30-2023 Lab Reports [id number]#1.0 0TIFF Normal [facility] Lab Reportson 06-20-2023 Lab Reports [id number]#1.0 0TIFF Normal [facility] Pre-Certification Formon Pre-Certification Form [id number]#1.[address] [facility] VASC LAB Abdominal Aorta/Isela ac/IVC Ultraon 01-05-2023 VASC LAB Abdominal Aorta/Iliac/IVC Ultra [address], [address] [place] [address] Vascular Lab Report Abdominal Aorta Iliac Ultrasound/IVC Ultrasound Patient Name: MIKE Flor Physician: [id number] Jade Gale MD, [facility] Study Date: 01/05/2023 Referring JADE GALE Physician: MRN/PID: [id number] PCP: Josh Ospina MD Accession/Order#: [id number] CC Report to: Date of : 1955 Technologist: Deidre Jimenez [address], [facility] Gender: M Technologist 2: Admission Status: Outpatient Location Performed: [facility] Diagnosis/ICD: M10-Ddewbjuej primary hypertension; R09.89-Bruit; I73.9-Peripheral vascular disease, unspecified Indication: ASCVD, Former Smoker, 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 Imaging AND Doppler Findings: AORTA AP Lateral PSV Proximal 1.49 cm 1.36 cm 101.0 cm/s Mid 1.55 cm 1.43 cm 97.0 cm/s Distal 1.57 cm 1.51 cm 72.0 cm/s RIGHT AP Lateral PSV FRANCISCO Proximal 1.08 cm 0.81 cm 147.00 cm/s LEFT AP Lateral PSV FRANCISCO Proximal 0.83 cm 0.96 cm 94.00 cm/s [id number] Jade Gale MD, FACC Final Normal [facility] TESTOSTERONE, TOTALon 2021 Testosterone [Mass/Vol] 229 ng/dL Critically low 264-916 [facility] Comment on above: Result Comment: Adul t male reference interval is based on a population of healthy nonobese males (BMI <30) between 19 and 39 years old. Leticia et.al. JCEM 2017,102;2676-5464. PMID: [id number]. 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 Vitals Vital Signs Recorded: [id number] 08:27AM Heart Rate74, R Radial Ciwelcai524, LUE, Sitting Xmgahhtvk91, LUE, Sitting Height6 ft 2 in Lbalxp438 lb 2 oz BMI Wjdkcpfttg31.03 kg/m2 BSA Calculated2.29 Tobacco Useb) No PHQ-2 #1. Over the last 2 weeks have you felt down, depressed or hopeless? (If yes, answer PHQ-9 below)No PHQ-2 #2. Over the last 2 weeks have you felt littl (more content not included)... Normal [facility] GLYCOHEMOGLOBIN A1Con 2021 ADA RECOMMENDATION SEE BELOW Normal [facility] Comment on above: Result Comment: ADA RECOMMENDED LIMIT 4.0 - 6.0 ADA THERAPEUTIC TARGET < 7.0 ACTION SUGGESTED > 7.0 Performed By: #### A 1C #### [facility] [address] [address] [address] Juan Alberto Carranza Glucose [Mass/Vol] 126 mg/dL Normal [facility] Comment on above: Performed By: #### A 1C #### [facility] [address] [address] [address] Juan Alberto Carranza HbA1c (Bld) [Mass fraction] 6.0 % Normal 4.5-6.2 [facility] Comment on above: Performed By: #### A 1C #### [facility] [address] [place] [address] Dr. Juan Alberto Carranza LIPID PROFILEon 01-10-2022 CHOL-HDL RATIO NORM SEE BELOW Normal [facility] Comment on above: Result Comment: 3.3 - 4.4 LOW RISK 4.4 - 7.1 AVERAGE RISK 7.1 - 11.0 MODERATE RISK >11.0 HIGH RISK Performed By: #### L IPID, CMP #### [facility] [address] [place] [address] Dr. Juan Alberto Carranza Cholesterol [Mass/Vol] 136 mg/dL Normal <=200 [facility] Comment on above: Performed By: #### L IPID, CMP #### [facility] [address] [place] [address] Dr. Juan Alberto Carranza Cholesterol in HDL [Mass/Vol] 62 mg/dL Critically high 40-60 [facility] Comment on above: Performed By: #### L IPID, CMP #### [facility] [address] [address] [address] Juan Alberto Carranza Cholesterol in LDL [Mass/Vol] 57.6 mg/dL Normal [facility] Comment on above: Performed By: #### L IPID, CMP #### [facility] [address] [place] [address] Dr. Juan Alberto Carranza Cholesterol.total/Chol esterol in HDL [Mass ratio] 2.2 {ratio} Normal [facility] Comment on above: Performed By: #### L IPID, CMP #### [facility] [address] [address] [address] Juan Alberto Carranza HDL NORMAL > or = 60 mg/dl - LO W CARDIOVASCULAR RISK <40 mg/dl - HIGH CARDIOVASCULAR RISK Normal [facility] Comment on above: Performed By: #### L IPID, CMP #### [facility] [address] [address] [address] Juan Alberto Carranza LDL CALC NORMAL SEE BELOW Normal [facility] Comment on above: Result Comment: <100 mg/dl OPTIMAL 100 - 129 mg/dl NEAR OR ABOVE OPTIMAL 130 - 159 mg/dl BORDERLINE HIGH 160 - 189 mg/dl HIGH >190 mg/dl VERY HIGH Performed By: #### L IPID, CMP #### [facility] [address] [address] [address] Juan Alberto Carranza Triglyceride [Mass/Vol] 82 mg/dL Normal <=150 [facility] Comment on above: Performed By: #### L IPID, CMP #### [facility] [address] [address] [address] Juan Alberto Carranza VLDL CALC 16.4 mg/dL Normal [facility] Comment on above: Performed By: #### L IPID, CMP #### [facility] [address] [address] [address] Juan Alberto Carranza PROF 14(COMP METB)on 022 Albumin [Mass/Vol] 4.0 g/dL Normal 3.4-5.0 [facility] Comment on above: Performed By: #### L IPID, CMP #### [facility] [address] [address] [address] Juan Alberto Carranza Albumin/Globulin [Mass ratio] 1.3 {ratio} Normal [facility] Comment on above: Performed By: #### L IPID, CMP #### [facility] [address] [address] [address] Juan Alberto Carranza ALP [Catalytic activity/Vol] 48 U/L Normal 46-116 [facility] Comment on above: Performed By: #### L IPID, CMP #### [facility] [address] [address] [address] Juan Alberto Carranza ALT [Catalytic activity/Vol] 28 U/L Normal 16-63 [facility] Comment on above: Performed By: #### L IPID, CMP #### [facility] [address] [address] [address] Juan Alberto Carranza Anion gap [Moles/Vol] 13.2 mmol/L Normal [facility] Comment on above: Performed By: #### L IPID, CMP #### [facility] [address] [address] [address] Juan Alberto Carranza AST [Catalytic activity/Vol] 13 U/L Critically low 15-37 [facility] Comment on above: Performed By: #### L IPID, CMP #### [facility] [address] [address] [address] Juan Alberto Carranza Bilirubin [Mass/Vol] 0.6 mg/dL Normal 0.2-1.0 [facility] Comment on above: Performed By: #### L IPID, CMP #### [facility] [address] [address] [address] Juan Alberto Carranza Calcium [Mass/Vol] 8.8 mg/dL Normal 8.5-10.1 [facility] Comment on above: Performed By: #### L IPID, CMP #### [facility] [address] [address] [address] Juan Alberto Carranza Chloride [Moles/Vol] 100 mmol/L Normal 98-107 [facility] Comment on above: Performed By: #### L IPID, CMP #### [facility] [address] [address] [address] Juan Alberto Carranza CO2 [Moles/Vol] 29.1 mmol/L Normal 21.0-32.0 [facility] Comment on above: Performed By: #### L IPID, CMP #### [facility] [address] [address] [address] Juan Alberto Carranza Creatinine [Mass/Vol] 0.89 mg/dL Normal 0.70-1.30 [facility] Comment on above: Performed By: #### L IPID, CMP #### [facility] [address] [address] [address] Juan Alberto Carranza EGFR-AF SAUDI ARABIAN >60 Normal >=60 [facility] Comment on above: Performed By: #### L IPID, CMP #### [facility] [address] [address] [address] Juan Alberto Carranza EGFR-NON AF SAUDI ARABIAN >60 Normal >=60 [facility] Comment on above: Performed By: #### L IPID, CMP #### [facility] [address] [address] [address] Juan Alberto Carranza Globulin (S) [Mass/Vol] 3.0 g/dL Normal [facility] Comment on above: Performed By: #### L IPID, CMP #### [facility] [address] [address] [address] Juan Alberto Carranza Glucose [Mass/Vol] 134 mg/dL Critically high 74-106 [facility] Comment on above: Performed By: #### L IPID, CMP #### [facility] [address] [address] [address] Juan Alberto Carranza Potassium [Moles/Vol] 4.3 mmol/L Normal 3.5-5.1 [facility] Comment on above: Performed By: #### L IPID, CMP #### [facility] [address] [address] [address] Juan Alberto Carranza Protein [Mass/Vol] 7.0 g/dL Normal 6.4-8.2 [facility] Comment on above: Performed By: #### L IPID, CMP #### [facility] [address] [address] [address] Juan Alberto Carranza Sodium [Moles/Vol] 138 mmol/L Normal 136-145 [facility] Comment on above: Performed By: #### L IPID, CMP #### [facility] [address] [address] [address] Juan Alberto Carranza Urea nitrogen [Mass/Vol] 17.0 mg/dL Normal 7.0-18.0 [facility] Comment on above: Performed By: #### L IPID, CMP #### [facility] [address] [address] [address] Juan Alberto Carranza Urea nitrogen/Creatinine [Mass ratio] 19.1 mg/mg Normal [facility] Comment on above: Performed By: #### L IPID, CMP #### [facility] [address] [address] [address] Juan Alberto Carranza TESTOSTERONE, TOTALon 2021 Testosterone [Mass/Vol] 321 ng/dL Normal 264-916 [facility] Comment on above: Result Comment: Adul t male reference interval is based on a population of healthy nonobese males (BMI <30) between 19 and 39 years old. Travison, et.al. JCEM 2017,102;5332-4952. PMID: [id number]. Performed By: #### T ESTTOT #### [facility] [address] [place] [address] Dr. Juan Alberto Carranza TESTOSTERONE, TOTALon 2021 Testosterone [Mass/Vol] 360 ng/dL Normal 264-916 [facility] Comment on above: Result Comment: Adul t male reference interval is based on a population of healthy nonobese males (BMI <30) between 19 and 39 years old. Travison, et.al. JCEM 2017,102;7910-2428. PMID: [id number]. Performed By: #### T ESTTOT ####[facility] [address] [address]Dr. Juan Alberto Carranza CBC AUTO DIFFon 07-13-2021 BASO # 0.0 103/ul Normal 0.0-0.1 [facility] Comment on above: Performed By: #### C BC #### [facility] [address] [place] [address] Dr. Juan Alberto Carranza Basophils/100 WBC (Bld) 0.5 % Normal 0.2-2.0 [facility] Comment on above: Performed By: #### C BC #### [facility] [address] [place] [address] Dr. Juan Alberto Carranza EO # 0.1 103/ul Normal 0.0-0.7 [facility] Comment on above: Performed By: #### C BC #### [facility] [address] [place] [address] Dr. Juan Alberto Carranza Eosinophils/100 WBC (Bld) 1.8 % Normal 0.9-7.0 [facility] Comment on above: Performed By: #### C BC #### [facility] [address] [place] [address] Dr. Juan Alberto Carranza Erythrocyte distribution width (RBC) [Ratio] 13.5 % Normal 11.0-15.0 [facility] Comment on above: Performed By: #### C BC #### [facility] [address] [place] [address] Dr. Juan Alberto Carranza Hematocrit (Bld) [Volume fraction] 40.4 % Critically low 42.0-54.0 [facility] Comment on above: Performed By: #### C BC #### [facility] [address] [place] [address] Dr. Juan Alberto Carranza Hemoglobin (Bld) [Mass/Vol] 13.9 g/dL Critically low 14.0-18.0 [facility] Comment on above: Performed By: #### C BC #### [facility] [address] [place] [address] Dr. Juan Alberto Carranza IG # 0.01 10e3/ul Normal 0.00-0.03 [facility] Comment on above: Performed By: #### C BC #### [facility] [address] [place] [address] Dr. Juan Alberto Carranza IG % 0.2 % Normal 0.0-0.5 [facility] Comment on above: Performed By: #### C BC #### [facility] [address] [place] [address] Dr. Juan Alberto Carranza LYMPH # 0.9 103/ul Critically low 1.2-3.8 [facility] Comment on above: Performed By: #### C BC #### [facility] [address] [place] [address] Dr. Juan Alberto Carranza Lymphocytes/100 WBC (Bld) 20.5 % Normal 20.5-60.0 [facility] Comment on above: Performed By: #### C BC #### [facility] [address] [place] [address] Dr. Juan Alberto Carranza MANUAL DIFF REQ NO Normal [facility] Comment on above: Performed By: #### C BC #### [facility] [address] [place] [address] Dr. Juan Alberto Carranza MCH (RBC) [Entitic mass] 32.3 pg Normal 25.9-34.0 [facility] Comment on above: Performed By: #### C BC #### [facility] [address] [place] [address] Dr. Juan Alberto Carranza MCHC (RBC) [Mass/Vol] 34.4 g/dL Normal 29.9-35.2 [facility] Comment on above: Performed By: #### C BC #### [facility] [address] [place] [address] Dr. Juan Alberto Carranza MCV (RBC) [Entitic vol] 93.7 fL Normal 80.0-94.0 [facility] Comment on above: Performed By: #### C BC #### [facility] [address] [place] [address] Dr. Juan Alberto Carranza MONO # 0.3 103/ul Normal 0.3-0.8 [facility] Comment on above: Performed By: #### C BC #### [facility] [address] [place] [address] Dr. Juan Alberto Carranza Monocytes/100 WBC (Bld) 7.0 % Normal 1.7-12.0 [facility] Comment on above: Performed By: #### C BC #### [facility] [address] [place] [address] Dr. Juan Alberto Carranza NEUT # 3.1 103/ul Normal 1.4-6.5 [facility] Comment on above: Performed By: #### C BC #### [facility] [address] [place] [address] Dr. Juan Alberto Carranza Neutrophils/100 WBC (Bld) 70.0 % Normal 43.0-75.0 [facility] Comment on above: Performed By: #### C BC #### [facility] [address] [address] [address] Juan Alberto Carranza Platelet mean volume (Bld) [Entitic vol] 11.3 fL Normal 9.5-13.5 [facility] Comment on above: Performed By: #### C BC #### [facility] [address] [address] [address] Juan Alberto Carranza PLT 141 103/ul Critically low 150-450 [facility] Comment on above: Performed By: #### C BC #### [facility] [address] [address] [address] Juan Alberto Carranza RBC 4.31 106/ul Critically low 4.70-6.10 [facility] Comment on above: Performed By: #### C BC #### [facility] [address] [place] [address] Dr. Juan Alberto Carranza WBC 4.4 103/ul Normal 4.0-11.0 [facility] Comment on above: Performed By: #### C BC #### [facility] [address] [place] [address] Dr. Juan Alberto Carranza LIPID PROFILEon 07-13-2021 CHOL-HDL RATIO NORM SEE BELOW Normal [facility] Comment on above: Result Comment: 3.3 - 4.4 LOW RISK 4.4 - 7.1 AVERAGE RISK 7.1 - 11.0 MODERATE RISK >11.0 HIGH RISK Performed By: #### L IPID #### [facility] [address] [place] [address] Dr. Juan Alberto Carranza Cholesterol [Mass/Vol] 139 mg/dL Normal <=200 [facility] Comment on above: Performed By: #### L IPID #### [facility] [address] [place] [address] Dr. Juan Alberto Carranza Cholesterol in HDL [Mass/Vol] 72 mg/dL Normal [facility] Comment on above: Performed By: #### L IPID #### [facility] [address] [place] [address] Dr. Juan Alberto Carranza Cholesterol in LDL [Mass/Vol] 62.4 mg/dL Normal [facility] Comment on above: Performed By: #### L IPID #### [facility] [address] [place] [address] Dr. Juan Alberto Carranza Cholesterol.total/Chol esterol in HDL [Mass ratio] 1.9 {ratio} Normal [facility] Comment on above: Performed By: #### L IPID #### [facility] [address] [address] [address] Juan Alberto Carranza HDL NORMAL > or = 60 mg/dl - LO W CARDIOVASCULAR RISK <40 mg/dl - HIGH CARDIOVASCULAR RISK Normal [facility] Comment on above: Performed By: #### L IPID #### [facility] [address] [place] [address] Dr. Juan Alberto Carranza LDL CALC NORMAL SEE BELOW Normal [facility] Comment on above: Result Comment: <100 mg/dl OPTIMAL 100 - 129 mg/dl NEAR OR ABOVE OPTIMAL 130 - 159 mg/dl BORDERLINE HIGH 160 - 189 mg/dl HIGH >190 mg/dl VERY HIGH Performed By: #### L IPID #### [facility] [address] [place] [address] Dr. Juan Alberto Carranza Triglyceride [Mass/Vol] 23 mg/dL Normal <=150 [facility] Comment on above: Performed By: #### L IPID #### [facility] [address] [place] [address] Dr. Juan Alberto Carranza VLDL CALC 4.6 mg/dL Normal [facility] Comment on above: Performed By: #### L IPID #### [facility] [address] [place] [address] Dr. Juan Alberto Carranza PROF 14(COMP METB)on 022 Albumin [Mass/Vol] 4.0 g/dL Normal 3.5-5.0 [facility] Comment on above: Performed By: #### C MP #### [facility] [address] [place] [address] Dr. Juan Alberto Carranza Albumin/Globulin [Mass ratio] 1.3 {ratio} Normal [facility] Comment on above: Performed By: #### C MP #### [facility] [address] [address] [address] Juan Alberto Carranza ALP [Catalytic activity/Vol] 60 U/L Normal 38-126 [facility] Comment on above: Performed By: #### C MP #### [facility] [address] [address] [address] Juan Alberto Carranza ALT [Catalytic activity/Vol] 22 U/L Normal 21-72 [facility] Comment on above: Performed By: #### C MP #### [facility] [address] [place] [address] Dr. Juan Alberto Carranza Anion gap [Moles/Vol] 9.4 mmol/L Normal [facility] Comment on above: Performed By: #### C MP #### [facility] [address] [place] [address] Dr. Juan Alberto Carranza AST [Catalytic activity/Vol] 12 U/L Critically low 17-59 [facility] Comment on above: Performed By: #### C MP #### [facility] [address] [place] [address] Dr. Juan Alberto Carranza Bilirubin [Mass/Vol] 0.6 mg/dL Normal 0.2-1.3 [facility] Comment on above: Performed By: #### C MP #### [facility] [address] [place] [address] Dr. Juan Alberto Carranza Calcium [Mass/Vol] 8.9 mg/dL Normal 8.4-10.2 [facility] Comment on above: Performed By: #### C MP #### [facility] [address] [place] [address] Dr. Juan Alberto Carranza Chloride [Moles/Vol] 103 mmol/L Normal 98-107 [facility] Comment on above: Performed By: #### C MP #### [facility] [address] [place] [address] Dr. Juan Alberto Carranza CO2 [Moles/Vol] 28.8 mmol/L Normal 22.0-30.0 [facility] Comment on above: Performed By: #### C MP #### [facility] [address] [place] [address] Dr. Juan Alberto Carranza Creatinine [Mass/Vol] 0.83 mg/dL Normal 0.66-1.25 [facility] Comment on above: Performed By: #### C MP #### [facility] [address] [place] [address] Dr. Juan Alberto Carranza EGFR-AF SAUDI ARABIAN >60 Normal >=60 [facility] Comment on above: Performed By: #### C MP #### [facility] [address] [address] [address] Juan Alberto Carranza EGFR-NON AF SAUDI ARABIAN >60 Normal >=60 [facility] Comment on above: Performed By: #### C MP #### [facility] [address] [place] [address] Dr. Juan Alberto Carranza Globulin (S) [Mass/Vol] 3.2 g/dL Normal [facility] Comment on above: Performed By: #### C MP #### [facility] [address] [place] [address] Dr. Juan Alberto Carranza Glucose [Mass/Vol] 135 mg/dL Critically high 74-106 T [facility] Comment on above: Performed By: #### C MP #### [facility] [address] [place] [address] Dr. Juan Alberto Carranza Potassium [Moles/Vol] 5.2 mmol/L Critically high 3.4-5.0 [facility] Comment on above: Performed By: #### C MP #### [facility] [address] [place] [address] Dr. Juan Alberto Carranza Protein [Mass/Vol] 7.2 g/dL Normal 6.1-8.2 [facility] Comment on above: Performed By: #### C MP #### [facility] [address] [place] [address] Dr. Juan Alberto Carranza Sodium [Moles/Vol] 136 mmol/L Critically low 137-145 [facility] Comment on above: Performed By: #### C MP #### [facility] [address] [place] [address] Dr. Juan Alberto Carranza Urea nitrogen [Mass/Vol] 17.0 mg/dL Normal 9.0-20.0 [facility] Comment on above: Performed By: #### C MP #### [facility] [address] [address] [address] Juan Alberto Carranza Urea nitrogen/Creatinine [Mass ratio] 20.5 mg/mg Normal [facility] Comment on above: Performed By: #### C MP #### [facility] [id number] Juan Alberto Carranza SED RATE [facility] 2021 SED RATE 2 mm/hr Normal <=20 [facility] Comment on above: Performed By: #### S EDR #### [facility] [address] [address] [address] 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 Hyperlipidemia, on statin therapy, under control. Lipid profile was requested from PCP 5. Overweight. Weight has dropped 15 pounds from last year which is encouraging 6. Hypertension, presently under control. 7. Diabetes, under control., Lab data from PCP were requested Jade Gale MD, [facility] Current Meds Medication NameInstruction Aspirin 81 [...] negative for complaint. Vitals Vital Signs Recorded: [id number] 03:40PM Heart Rate80, R Radial Hutskzmf120, RUE, Sitting Dkhlomeul10, RUE, Sitting Height6 ft 2 in Ctvlyt820 lb 9.6 oz BMI Oooojkdyuz93.61 kg/m2 BSA Calculated2.31 Tobacco Useb) No Fall [...] Normal [facility] MRI SHOULDER RIGHT WO CONTRA STogaurav 07-06-2017 MRI SHOULDER RIGHT WO CONTRAST CLINICAL [...] Maeigned by:Jair Olivia MD07/06/17inal result Normal [facility] Vital Signs Date Time Vital Sign Value Performing Clinician Facility 06-09-2024 13:57-0500 Body height 1859.28 cm [employer] DO Work Phone: [facility] 06-09-2024 13:57-0500 Body mass index (BMI) [Ratio] 0.3 kg/m2 [facility] [employer] DO Work Phone: [facility] 06-09-2024 13:57-0500 Body weight 103.87 kg Josh Furlong DO Work Phone: [facility] 06-09-2024 13:57-0500 Diastolic blood pressure 66 mm[Hg] Josh Furlong DO Work Phone: [facility] 06-09-2024 13:57-0500 Heart rate 73 /min Josh Furlong DO Work Phone: [facility] 06-09-2024 13:57-0500 SaO2% (BldA) [Mass fraction] 97 % Josh Furlong DO Work Phone: [facility] 06-09-2024 13:57-0500 Systolic blood pressure 123 mm[Hg] Josh Furlong DO Work Phone: [facility] 05-04-2024 11:34-0500 Diastolic blood pressure 76 mm[Hg] Josh Furlong DO Work Phone: [facility] 05-04-2024 11:34-0500 Heart rate 52 /min Josh Furlong DO Work Phone: [facility] 05-04-2024 11:34-0500 Respiratory rate 20 /min Josh Furlong DO Work Phone: [facility] 05-04-2024 11:34-0500 SaO2% (BldA) [Mass fraction] 99 % Josh Furlong DO Work Phone: [facility] 05-04-2024 11:34-0500 Systolic blood pressure 156 mm[Hg] Josh Furlong DO Work Phone: [facility] 05-04-2024 08:37-0500 Body height 185.42 cm Josh Furlong DO Work Phone: [facility] 05-04-2024 08:37-0500 Body weight 102.51 kg Josh Furlong DO Work Phone: [facility] 05-02-2024 09:33-0500 Body height 185.4 cm Josh Furlong DO Work Phone: [facility] [employer] [facility] 05-02-2024 09:33-0500 Body mass index (BMI) [Ratio] 30.32 kg/m2 Josh Furlong DO Work Phone: [facility] 05-02-2024 09:33-0500 Body temperature 98.2 [degF] Josh Furlong DO Work Phone: [facility] 05-02-2024 09:33-0500 Body weight 104.24 kg Josh Furlong DO Work Phone: [facility] 05-02-2024 09:33-0500 Diastolic blood pressure 52 mm[Hg] Josh Furlong DO Work Phone: [facility] 05-02-2024 09:33-0500 Heart rate 72 /min Josh Furlong DO Work Phone: [facility] [employer] [facility] 05-02-2024 09:33-0500 Respiratory rate 18 /min Josh Furlong DO Work Phone: [facility] [employer] [facility] 05-02-2024 09:33-0500 SaO2% (BldA) [Mass fraction] 99 % Josh Furlong DO Work Phone: [facility] 05-02-2024 09:33-0500 Systolic blood pressure 104 mm[Hg] Josh Furlong DO Work Phone: [facility] 03-22-2024 10:51-0500 Body height 185.42 cm [facility] 03-22-2024 10:51-0500 Body mass index (BMI) [Ratio] 30 kg/m2 [facility] 03-22-2024 10:51-0500 Body weight 103.41 kg [facility] 03-22-2024 10:51-0500 Diastolic blood pressure 61 mm[Hg] [facility] 03-22-2024 10:51-0500 Heart rate 67 /min [facility] 03-22-2024 10:51-0500 SaO2% (BldA) [Mass fraction] 98 % [facility] 03-22-2024 10:51-0500 Systolic blood pressure 112 mm[Hg] [facility] 03-22-2024 08:42-0500 Body height 185.4 cm Jade Gale MD Work Phone: [facility] 03-22-2024 08:42-0500 Body mass index (BMI) [Ratio] 29.95 kg/m2 Jade Gale MD Work Phone: [facility] 03-22-2024 08:42-0500 Body weight 102.97 kg Jade Gale MD Work Phone: [facility] 03-22-2024 08:42-0500 Diastolic blood pressure 50 mm[Hg] Jade Gale MD Work Phone: [facility] 03-22-2024 08:42-0500 Heart rate 64 /min Jade Gale MD Work Phone: [facility] 03-22-2024 08:42-0500 Systolic blood pressure 100 mm[Hg] Jade Gale MD Work Phone: [facility] 06-25-2023 09:55-0500 Body mass index (BMI) [Ratio] 29.34 kg/m2 Josh Ospina DO Work Phone: [facility] 06-25-2023 09:55-0500 Body weight 100.88 kg Josh Ospina DO Work Phone: [facility] 06-18-2023 08:39-0500 Body height 185.4 cm Jade aGle MD Work Phone: [facility] 06-18-2023 08:39-0500 Body mass index (BMI) [Ratio] 29.82 kg/m2 Jade Gale MD Work Phone: [facility] 06-18-2023 08:39-0500 Body weight 102.51 kg Jade Gale MD Work Phone: [facility] 06-18-2023 08:39-0500 Diastolic blood pressure 76 mm[Hg] Jade Gale MD Work Phone: [facility] 06-18-2023 08:39-0500 Heart rate 62 /min Jade Gale MD Work Phone: [facility] 06-18-2023 08:39-0500 Systolic blood pressure 130 mm[Hg] Jade Gale MD Work Phone: [facility] 03-27-2022 16:00-0500 Body height Aryan Garcia Other [employer] Other 03-27-2022 16:00-0500 Body mass index (BMI) [Ratio] 29.81 kg/m2 Aryan Garcia Other [facility] [employer] [facility] Other 03-27-2022 16:00-0500 Body temperature 96.9 [degF] Aryan Garcia Other [facility] Other 03-27-2022 16:00-0500 Body weight 102.51 kg Aryan Garcia Other [facility] Other 03-27-2022 16:00-0500 Diastolic blood pressure 70 mm[Hg] Aryan Garcia Other [facility] Other 03-27-2022 16:00-0500 SaO2% (BldA) [Mass fraction] 100 % Aryan Garcia Other [employer] Other 03-27-2022 16:00-0500 Systolic blood pressure 128 mm[Hg] Aryan Garcia Other [facility] Other Encounters Encounter Date Encounter Type Care Provider Facility Start: 11-14-2024 ambulatory Shady MOHAN Facili ty:[facility] Start: 10-17-2024 ambulatory Shady MOHAN Facili ty:[facility] Start: 09-19-2024 ambulatory Shady MOHAN Facili ty: Start: 08-22-2024 End: 08-22-2024 ambulatory Shady MOHAN Facility:[facility] Start: 08-08-2024 End: 08-09-2024 Refill [facility] Angelique [facility] Start: 08-04-2024 End: 08-04-2024 Refill Loveetta Maurice [facility] Comment on above: Type 2 diabetes gordy itus with diabetic polyneuropathy, without long-term current use of insulin ([facility]) Start: 07-25-2024 End: 07-25-2024 ambulatory Shady MOHAN Facility:[facility] [place] Start: 07-23-2024 End: 07-23-2024 Refill [facility] Start: 07-18-2024 End: 07-18-2024 ambulatory Shady MOHAN Facility:[facility] Start: 07-11-2024 End: 07-11-2024 Refill [facility] Start: 06-27-2024 End: 06-27-2024 ambulatory Shady MOHAN Facility:[facility] [place] Start: 06-09-2024 End: 06-09-2024 ambulatory Josh Furlong DO Work Phone: [facility] Work Phone: Start: 06-09-2024 End: 06-09-2024 Patient encounter procedure Josh Furlong DO Work Phone: [facility] Work Phone: Start: 05-30-2024 End: 05-30-2024 ambulatory Shadyjane MOHAN Facility:[facility] Start: 05-04-2024 Non-patient / Non-visit Josh Ospina DO Work Phone: [facility] Work Phone: Start: 05-04-2024 Non-patient / Non-visit Josh Ospina DO Work Phone: [facility] Work Phone: Start: 05-04-2024 End: 05-04-2024 Admission to same day surgery center Josh Ospina DO [facility] Work Phone: Start: 05-04-2024 End: 05-04-2024 ambulatory Imad Asaad Facility:[facility] Start: 05-02-2024 End: 05-02-2024 ambulatory [facility] Start: 05-02-2024 End: 05-02-2024 ambulatory Shady MOHAN Facility:[facility] Start: 05-02-2024 End: 05-02-2024 Office outpatient visit 25 minutes Josh Ospina DO Work Phone: [facility] Comment on above: Type 2 diabetes gordy itus with diabetic polyneuropathy, without long-term current use of insulin ([facility]) (Primary Dx); Essential hypertension; Peripheral vascular disease ([facility]); ASCVD (arteriosclerotic cardiovascular disease); Class 1 obesity due to excess calories with serious comorbidity and body mass index (BMI) of 30.0 to 30.9 in adult; Myalgia Start: 05-02-2024 End: 05-02-2024 ambulatory [facility] Start: 04-24-2024 End: 04-24-2024 Refill Josh Ospina DO [facility] Start: 04-04-2024 End: 04-04-2024 ambulatory Shady MOHAN Facility:[facility] [place] Start: 03-22-2024 End: 03-22-2024 ambulatory [facility] Work Phone: Start: 03-22-2024 End: 03-22-2024 Patient encounter procedure [facility] Work Phone: Start: 03-22-2024 End: 03-22-2024 Office outpatient visit 25 minutes Jade Gale MD Work Phone: [facility] Comment on above: ASCVD (arteriosclero tic cardiovascular disease) (Primary Dx); Peripheral vascular disease ([facility]); Essential hypertension; Hyperlipidemia, unspecified hyperlipidemia type; Other specified diabetes mellitus without complication, without long-term current use of insulin; Obstructive sleep apnea syndrome; Former smoker; BMI 29.0-29.9,adult; Diabetes mellitus type II, non insulin dependent (Multi) Start: 03-22-2024 End: 03-22-2024 ambulatory JADE Holley [facility] Start: 03-08-2024 End: 03-08-2024 ambulatory Shady MOHAN Facility:[facility] Start: 02-29-2024 End: 02-29-2024 Orders Only Josh G Janell DO [facility]: [facility] Comment on above: Normocytic normochro alma anemia (Primary Dx); Type 2 diabetes mellitus with diabetic polyneuropathy, without long-term current use of insulin ([facility]); Essential hypertension Start: 02-08-2024 End: 02-08-2024 ambulatory Shady MOHAN Facility:[facility] Start: 01-12-2024 End: 01-12-2024 ambulatory Josseline Kerr Facility:[facility] Start: 12-28-2023 End: 12-28-2023 ambulatory Shady MOHAN Facility:[facility] Start: 12-28-2023 End: 12-28-2023 ambulatory Shady MOHAN Facility:[facility] [place] Start: 11-02-2023 End: 11-02-2023 ambulatory Shady MOHAN Facility:[facility] Start: 07-02-2023 Refill Kenzie Richards [facility] Comment on above: Type 2 diabetes gordy itus with diabetic polyneuropathy, without long-term current use of insulin ([facility]) (Primary Dx) Start: 07-01-2023 Refill Belkys Angelique [facility] Comment on above: Type 2 diabetes gordy itus with diabetic polyneuropathy, without long-term current use of insulin ([facility]) (Primary Dx) Start: 06-29-2023 Refill Belkys Angelique [facility] Start: 06-26-2023 Orders Only Josh Laura Asim escobedo DO Work Phone: [facility] Start: 06-25-2023 End: 06-25-2023 Office outpatient visit 25 minutes Josh Ospina DO Work Phone: [facility] Comment on above: Type 2 diabetes gordy itus with diabetic polyneuropathy, without long-term current use of insulin ([facility]) (Primary Dx); Normocytic normochromic anemia; Peripheral vascular disease ([facility]); Thrombocytopenia ([facility]) Start: 06-25-2023 End: 06-25-2023 ambulatory [facility] Start: 06-23-2023 Refill Belkys Angelique [facility] Start: 06-18-2023 End: 06-18-2023 Office outpatient visit 25 minutes Jade Gale MD Work Phone: [facility] Comment on above: ASCVD (arteriosclero tic cardiovascular disease) (Primary Dx); Peripheral vascular disease ([facility]); Essential hypertension; Hyperlipidemia, unspecified hyperlipidemia type; Other specified diabetes mellitus without complication, without long-term current use of insulin ([facility]); Former smoker; Overweight Start: 06-18-2023 End: 06-18-2023 [facility] Start: 05-04-2023 End: 05-04-2023 ambulatory [facility] Start: 01-05-[address] Jade Gale Facility:[id number] Start: 10-08-2022 Office outpatient vi sit 25 minutes Josh Sanchez Lararinkugregg Work Phone: [facility] Work Phone: Start: 08-20-2022 Rx Renewal Josh Laura Dailey ng Work Phone: [facility] 250 DO Work Phone: Start: 04-26-2022 End: 04-27-[address] JOSH OSPINA Facility:[facility] Start: 03-27-2022 End: 03-27-2022 Patient encounter procedure DO Josh Ospina Work Phone: [facility] Start: 03-27-2022 End: 03-27-2022 ambulatory DO Josh Ospina Work Phone: [facility] Work Phone: Start: 03-27-2022 Office outpatient vi sit 25 minutes Aryan [facility] Start: 02-04-[address] Jade Gale Facility:[id number] Start: 01-10-2022 End: 01-11-[address] JOSH SOPINA Facility:[facility] Start: 12-03-2021 Rx Renewal Josh Dailey ng Work Phone: [facility] 250 DO Work Phone: Start: 11-26-2021 Rx Renewal Josh Dailey ng Work Phone: [facility] 250 DO Work Phone: Start: 11-19-2021 Rx Renewal Josh Dailey ng Work Phone: [facility] DO Work Phone: Start: 10-26-2021 End: 10-27-[address] JOSH OSPINA Facility:[facility] Start: 07-24-2021 End: 07-25-[address] SHANICE BAILEY Facility:[facility] Start: 07-13-2021 End: 07-14-[address] SHANICE BAILEY Facility:[facility] Start: 06-04-[address] JOSH OSPINA Fac ility:[facility] Start: 04-23-2021 ambulatory Josh Willy Brand acility: Start: 07-06-2017 End: 07-09-2017 Ambulatory [facility] Procedures Date Procedure Procedure Detail Performing Clinician Start: 05-04-2024 Colonoscopy Josh Lara alvarado DO Work Phone: Start: 05-02-2024 Adult depression scr eening assessment Josh Ospina DO Work Phone: Start: 05-02-2024 Microalbumin [Mass/v olume] in Urine by Test strip [employer] Angelique [employer]INE[employer] Start: 04-01-2024 Diabetic retinal eye exam Josh Ospina DO Work Phone: Start: 06-25-2023 Adult depression scr eening assessment Josh Ospina DO Work Phone: Start: 06-19-2023 Lipid panel Jade barker MD Work Phone: Start: 06-18-2023 Aspartate aminotrans ferase [Enzymatic activity/volume] in Serum or Plasma JADE GALE Start: 06-18-2023 Basic metabolic 2000 panel - Serum or Plasma JADE PURIIM Start: 06-18-2023 CBC panel - Blood by Automated count JADE GALE Start: 06-18-2023 Lipid panel JADE IBR [facility] Start: 06-18-2023 Alanine aminotransfe rase [Enzymatic activity/volume] in Serum or Plasma BL[employer] GALE Start: 05-04-2023 Adult depression scr eening assessment Belkys Angelique [employer] Start: 05-04-2023 Microalbumin [Mass/v olume] in Urine by Test strip [employer] Angelique [employer] Start: 05-13-2022 Diabetic retinal eye exam Bel[employer]ys Angelique [employer] Start: 04-26-[address] PINO MOHAN Comment on above: Performed By: #### P SAD #### [facility] [address] [place] [address] Dr. Juan Alberto Carranza Start: 07-06-2017 Mri [...] colon Colon Cancer Screening 5 Year [facility] Comment on above: Postponed from 10/19/2000 (Not Indicated ) Start: 05-02-2025 Adult BMI Screening [facility] Start: 05-02-2025 Depression Screening [facility] Start: 05-02-2025 Fall Risk Screening Fall [facility]ening [facility] Start: 05-02-2025 Tobacco Screening [facility]ening [facility] Start: 05-02-2025 Urine screening for protein Urine Microalbumin [facility] Start: 04-01-2025 Glaucoma screening Diabetic [facility]hthal[facility]am [facility] Start: 12-27-2024 End: 12-27-2024 Patient encounter procedure 12/27/2024 8:50 AM EDT Office Visit [facility] [address] [facility] [address] [place] [address] Jade aGle MD [address] [facility] [address] [place] [address] [facility] Start: 10-31-2024 End: 10-31-2024 Patient encounter procedure 10/31/2024 9:00 AM EDT Office Visit [facility] [address] [place] [address] Josh Ospina DO [address], [place] [address] [facility] Start: 07-04-2024 DTaP,Tdap and Td Vaccines (2 - Td or Tdap) DTaP,Tdap and Td Vaccines (2 - Td or Tdap) [facility] Start: 07-04-2024 DTaP/Tdap/Td Vaccines (2 - Td or Tdap) DTaP/Tdap/Td Vaccines (2 - Td or Tdap) [facility] Start: 06-25-2024 Adult BMI Screening Adult BMI Screening [facility] Start: 06-25-2024 Depression Screening Depression Screening [facility] Start: 06-25-2024 Fall Risk Screening Fall Risk Screening [facility] Start: 06-25-2024 Tobacco Screening Tobacco Screening [facility] Start: 05-18-2024 COVID-19 Vaccine ( season) COVID-19 Vaccine ( season) [facility] Comment on above: Postponed from 01/17/2024 (Patient Refus ed) Start: 05-04-2024 Adult BMI Screening Adult BMI Screening [facility] Start: 05-04-2024 Depression Screening Depression Screening [facility] Start: 05-04-2024 Diabetic foot examination Diabetic Foot Exam [facility] Start: 05-04-2024 Fall Risk Screening Fall Risk Screening [facility] Start: 05-04-2024 Tobacco Screening Tobacco Screening [facility] Start: 05-04-2024 Urine screening for protein [facility] Start: 05-04-2024 [facility] Start: 05-02-2024 End: 12-16-2024 Patient encounter procedure 05/02/2024 9:30 AM EST Office Visit [facility] [address] [place] [id number] Josh Ospina DO [address], [address] [place] [address] [facility] Start: 04-07-2024 Screening for malignant neoplasm of colon [facility] Start: 03-22-2024 End: 03-22-2025 Alanine aminotransferase [Enzymatic activity/volume] in Serum or Plasma by With P-5'-P Alanine Aminotransferase Lab Routine ASCVD (arteriosclerotic cardiovascular disease) Hyperlipidemia, unspecified hyperlipidemia type Expected: 03/22/2024 (Approximate), Expires: 03/22/[address] [facility] Service Area Work Phone: Comment on above: Expected: 03/22/2024 (Approximate), Expi res: 03/22/2025 Start: 03-22-2024 End: 03-22-2025 Aspartate aminotransferase [Enzymatic activity/volume] in Serum or Plasma by With P-5'-P Aspartate Aminotransferase Lab Routine ASCVD (arteriosclerotic cardiovascular disease) Hyperlipidemia, unspecified hyperlipidemia type Expected: 03/22/2024 (Approximate), Expires: 03/22/2025 [facility] Work Phone: Comment on above: Expected: 03/22/2024 (Approximate), Expi res: 03/22/2025 Start: 03-22-2024 End: 03-22-2025 Basic metabolic 2000 panel - Serum or Plasma Basic Metabolic Panel Lab Routine ASCVD (arteriosclerotic cardiovascular disease) Essential hypertension Expected: 03/22/2024 (Approximate), Expires: 03/22/2025 [facility] Work Phone: Comment on above: Expected: 03/22/2024 (Approximate), Expi res: 03/22/2025 Start: 03-22-2024 End: 03-22-2025 CBC panel - Blood by Automated count CBC Lab Routine ASCVD (arteriosclerotic cardiovascular disease) Expected: 03/22/2024 (Approximate), Expires: 03/22/2025 [facility] Work Phone: Comment on above: Expected: 03/22/2024 (Approximate), Expi res: 03/22/2025 Start: 03-22-2024 End: 03-22-2025 Lipid 1996 panel - Serum or Plasma Lipid Panel Lab Routine ASCVD (arteriosclerotic cardiovascular disease) Hyperlipidemia, unspecified hyperlipidemia type Expected: 03/22/2024 (Approximate), Expires: 03/22/2025 [facility] Work Phone: Comment on above: Expected: 03/22/2024 (Approximate), Expi res: 03/22/2025 Start: 03-22-2024 End: 03-22-2024 Patient encounter procedure 03/22/2024 8:40 AM EST Office Visit [facility] [address] [place] [id number] Jade Gale MD [address] [place] [address] [facility] Start: 01-17-2024 COVID-19 Vaccine ( season) COVID-19 Vaccine ( season) [facility] Start: 01-17-2024 COVID-19 Vaccine ( season) COVID-19 Vaccine ( season) [facility] Start: 01-17-2024 COVID-19 Vaccine ( season) COVID-19 Vaccine ( season) [facility] Start: 01-17-2024 COVID-19 Vaccine ( season) COVID-19 Vaccine ( season) [facility] Start: 01-17-2024 Influenza vaccination Influenza Vaccine [facility] Start: 09-18-2023 Medicare Annual Wellness Visit Medicare Annual Wellness Visit [facility] Start: 06-25-2023 End: 06-25-2023 Patient encounter procedure 06/25/2023 10:00 AM EST Office Visit [facility] [address] [place] [address] Josh Ospina DO [address], [place] [address] [facility] Start: 06-18-2023 End: 06-18-2024 Alanine aminotransferase [Enzymatic activity/volume] in Serum or Plasma by With P-5'-P Alanine Aminotransferase Lab Routine ASCVD (arteriosclerotic cardiovascular disease) Peripheral vascular disease (CMS/HCC) Essential hypertension Hyperlipidemia, unspecified hyperlipidemia type Other specified diabetes mellitus without complication, without long-term current use of insulin (CMS/HCC) Expected: 06/18/2023 (Approximate), Expires: 06/18/[address] [facility] Service Area Work Phone: Comment [...] insulin (CMS/HCC) Expected: 06/18/2023 (Approximate), Expires: 06/18/2024 [facility] Work Phone: Comment on above: Expected: 06/18/2023 (Approximate), Expi res: 06/18/2024 Start: 06-18-2023 End: 06-18-2024 Basic metabolic 2000 panel - Serum or Plasma Basic Metabolic Panel Lab Routine ASCVD (arteriosclerotic cardiovascular disease) Peripheral vascular disease (CMS/HCC) Essential hypertension Hyperlipidemia, unspecified hyperlipidemia type Other specified diabetes mellitus without complication, without long-term current use of insulin (CMS/HCC) Expected: 06/18/2023 (Approximate), Expires: 06/18/2024 [facility] Work Phone: Comment on above: Expected: 06/18/2023 (Approximate), Expi res: 06/18/2024 Start: 06-18-2023 End: 06-18-2024 CBC panel - Blood by Automated count CBC Lab Routine ASCVD (arteriosclerotic cardiovascular disease) Peripheral vascular disease (CMS/HCC) Essential hypertension Hyperlipidemia, unspecified hyperlipidemia type Other specified diabetes mellitus without complication, without long-term current use of insulin (CMS/HCC) Expected: 06/18/2023 (Approximate), Expires: 06/18/2024 [facility] Work Phone: Comment on above: Expected: 06/18/2023 (Approximate), Expi res: 06/18/2024 Start: 06-18-2023 End: 06-18-2024 Lipid 1996 panel - Serum or Plasma Lipid Panel Lab Routine ASCVD (arteriosclerotic cardiovascular disease) Peripheral vascular disease (CMS/HCC) Essential hypertension Hyperlipidemia, unspecified hyperlipidemia type Other specified diabetes mellitus without complication, without long-term current use of insulin (CMS/HCC) Expected: 06/18/2023 (Approximate), Expires: 06/18/2024 [facility] Work Phone: Comment on above: Expected: 06/18/2023 (Approximate), Expi res: 06/18/2024 Start: 06-18-2023 FUV, Provider: Jade Gale, Status: Pen, Time: 9:00 AM FUV, Provider: Jade Gale, Status: Pen, Time: 9:00 AM [facility] Work Phone: Start: 05-13-2023 Glaucoma screening [facility] Start: 01-16-2023 COVID-19 Vaccine () COVID-19 Vaccine () [facility] Start: 01-16-2023 COVID-19 Vaccine () COVID-19 Vaccine () [facility] Start: 01-16-2023 COVID-19 Vaccine () COVID-19 Vaccine () [facility] Start: 01-05-2023 AOILIVC, Provider: CECILIA [facility] ULTRASOUND 01,[id number], Status: Pen, Time: 7:45 AM AOILIVC, Provider: CECILIA [facility]TRASOUND 01,[id number], Status: Pen, Time: 7:45 AM [facility] Work Phone: Start: 10-08-2022 FUV, Provider: Jade Gale, Status: Pen, Time: 8:40 AM FUV, Provider: Jade Gale, Status: Pen, Time: 8:40 AM [facility] 250 DO Work Phone: Start: 02-04-2022 FUV, Provider: Jade Gale, Status: Pen, Time: 8:30 AM FUV, Provider: Jade Gale, Status: Pen, Time: 8:30 AM [facility] 250 DO Work Phone: Start: 2015 RSV High Risk: (Elderly (60+) or Population) (1 - Risk 60-74 years 1-dose series) RSV High Risk: (Elderly (60+) or Population) (1 - Risk 60-74 years 1-dose series) [facility] Start: 10-19-2000 Screening for malignant neoplasm of colon Colon Cancer Screening 5 [facility] Start: 10-19-1973 Adult BMI Follow Up Plan Adult [facility] Start: 10-19-1973 Hepatitis C screening Hepatitis C Screening [facility] Start: 10-19-1965 Diabetic foot examination Diabetes: Foot Exam [facility] Start: 10-19-1965 Glaucoma screening Diabetes: Retinopathy Screening [facility] Start: 1955 Hemoglobin A1c measurement Diabetes: Hemoglobin A1C [facility] Start: 1955 Lipid panel Lipid Panel [facility] Start: 1955 Medicare Annual Wellness Visit Medicare Annual Wellness Visit (AWV) [facility] Start: 1955 Screening for malignant neoplasm of colon [facility] End: 02-28-2025 Basic metabolic 2000 panel - Serum or Plasma Basic Metabolic Panel Lab Routine Essential hypertension 1 Occurrences starting 02/29/2024 until 02/28/2025 [employer] Comment on above: 1 Occurrences starting 02/29/2024 until 02/28/2025 End: 02-28-2025 CBC panel - Blood by Automated count CBC Lab Routine Normocytic normochromic anemia 1 Occurrences starting 02/29/2024 until 02/28/2025 [employer] Comment on above: 1 Occurrences starting 02/29/2024 until 02/28/2025 End: 02-28-2025 Hemoglobin A1c/Hemoglobin.total in Blood Hemoglobin A1c Lab Routine Type 2 diabetes mellitus with diabetic polyneuropathy, without long-term current use of insulin ([facility]) 1 Occurrences starting 02/29/2024 until 02/28/2025 [employer] Work Phone: Comment on above: 1 Occurrences starting 02/29/2024 until 02/28/2025 End: 05-02-2025 Microalbumin - Albumin: Creatinine Urine Ratio Microalbumin - Albumin: Creatinine Urine Ratio Lab Routine Type 2 diabetes mellitus with diabetic polyneuropathy, without long-term current use of insulin ([facility]) 1 Occurrences starting 05/02/2024 until 05/02/2025 [employer] Work Phone: Comment on above: 1 Occurrences starting 05/02/2024 until 05/02/2025 Patient Education Colon polyps K now your [facility] Work Phone: Immunizations Immunization Date Immunization Notes Care Provider Rahel rice 03-23-2024 Influenza, High-dose , Quadrivalent Josh Ospina DO Work Phone: [employer] 02-05-2023 Influenza, High-dose , Quadrivalent Belkys Angelique [facility] [employer] 02-05-2023 influenza virus vacc ine, unspecified formulation Belkys Angelique [facility] [employer] 04-14-2022 pneumococcal conjuga te vaccine, 13 valent [facility] 04-14-2022 Prevnar 20 0.5 ML Intramuscular Suspension Prefilled Syringe Josh Ospina Work Phone: [facility] Work Phone: 02-18-2021 Pfizer-BioNTech COVI D-19 Vacc 30 MCG/0.3ML Intramuscular Suspension [facility] Sanchez [facility] Work Phone: [facility] 08-08-2020 Pfizer-BioNTech COVI D-19 Vacc 30 MCG/0.3ML Intramuscular Suspension Josh Sanchez [employer] Work Phone: [facility] DO Work Phone: 08-05-2020 Pfizer Purple Cap SARS-CoV-2 Jade Gale MD Work Phone: [facility] Work Phone: 07-18-2020 Moderna COVID-19 Vac cine 100 MCG/0.5ML Intramuscular Suspension Josh Sanchez [employer] Work Phone: [facility] DO Work Phone: 07-18-2020 Pfizer-BioNTech COVI D-19 Vacc 30 MCG/0.3ML Intramuscular Suspension Josh Sanchez [facility] Work Phone: [facility] 250 DO Work Phone: 07-16-2020 COVID-19, mRNA, LNP- S, PF, 30mcg/0.3mL Dose Belkys Angelique [facility] [employer] [facility] 05-08-2020 pneumococcal polysaccharide vaccine, 23 valent Josh [facility] Work Phone: [facility] 02-16-2020 influenza virus vacc ine, unspecified formulation Josh [facility] Work Phone: [facility] 250 DO Work Phone: 02-16-2020 influenza, injectabl e, quadrivalent, preservative free Jade Gale MD Work Phone: [facility] Work Phone: 02-16-2020 influenza, seasonal, injectable Belkys Angelique [facility] [employer] [facility] 06-29-2019 zoster vaccine recombinant Josh Sanchez [employer] Work Phone: [place] [address] DO Work Phone: 04-28-2019 zoster vaccine recombinant Josh [employer] Work Phone: [place] [address] DO Work Phone: 03-18-2019 influenza virus vacc ine, unspecified formulation Josh G [employer] Work Phone: [place] [address] DO Work Phone: 03-18-2019 influenza, seasonal, injectable Belkys Angelique [facility] 03-02-2019 influenza, injectabl e, quadrivalent, contains preservative Josh G [employer] Work Phone: [place] [address] DO Work Phone: 04-13-2018 Influenza, injectabl e, Madin Myla Canine Kidney, preservative free, quadrivalent Josh G [employer] Work Phone: [place] [address] DO Work Phone: 03-18-2018 influenza virus vacc ine, unspecified formulation Josh G [employer] Work Phone: [place] [address] DO Work Phone: 04-20-2017 influenza, injectabl e, quadrivalent, preservative free Josh G [employer] Work Phone: [place] [address] DO Work Phone: 03-31-2017 influenza, injectabl e, quadrivalent, preservative free Josh G [employer] Work Phone: [place] [address] DO Work Phone: 03-26-2017 influenza virus vacc ine, unspecified formulation Belkys Angelique [facility] 03-18-2017 influenza virus vacc ine, unspecified formulation Josh G [employer] Work Phone: [place] [address] DO Work Phone: 02-16-2016 influenza virus vacc ine, unspecified formulation Josh Sanchez [employer] Work Phone: [place] [address] DO Work Phone: 03-18-2015 influenza, seasonal, injectable Josh Sanchez [employer] Work Phone: [place] [address] DO Work Phone: 02-15-2015 influenza virus vacc ine, unspecified formulation Josh Sanchez [employer] Work Phone: [place] [address] DO Work Phone: 07-04-2014 pneumococcal conjuga te vaccine, 13 valent Josh Sanchez [employer] Work Phone: [place] [address] DO Work Phone: 07-04-2014 tetanus toxoid, redu leonel diphtheria toxoid, and acellular pertussis vaccine, adsorbed Josh G [employer] Work Phone: [place] [address] DO Work Phone: 02-22-2014 influenza virus vacc ine, whole virus Josh Sanchez [employer] Work Phone: [place] [address] DO Work Phone: 07-18-2013 influenza virus vacc ine, unspecified formulation Josh Sanchez [employer] Work Phone: [place] [address] DO Work Phone: 05-18-2011 influenza virus vacc ine, unspecified formulation Belkys Angelique [facility] 03-18-2011 influenza virus vacc ine, unspecified formulation [employer] Angelique [facility] 05-18-2009 influenza virus vacc ine, unspecified formulation Belkys Angelique [facility] 03-18-2009 influenza virus vacc ine, unspecified formulation Josh B[employer] Work Phone: [facility] [address] DO Work Phone: influenza virus vacc ine, unspecified formulation Josh Ospina Work Phone: [facility] [address] DO Work Phone: Comment on above: 2011Mar [id number] Payers Date Payer Category Payer Self-pay [id number] 2022 Commercial Indemnity [facility] [[email or web address] UA Member Subscriber Plan / Payer (Effective 2022-Present) Name: Mike Florentino Relation to Subscriber: Self Name: Mike Florentino Payer ID: Not on file Type: Not on file Address: [place] [id number] 2022 Unknown 2020 Medicare [id number] 2020 Medicare [id number] 1959 Medicare [id number] 1959 Self-pay [id number] 1959 Unknown [id number] 1955 Unknown [id number] 2.16.840.1.962643.3.579.2.3 56 1955 Unknown [id number] 2.16.840.1.726230.3.579.2.3 56 1955 Unknown [id number] 2.16.840.1.961572.3.579.2.5 93 1955 Unknown [id number] 2.16.840.1.466870.3.579.2.5 93 1955 Unknown [id number] 2.16.840.1.257718.3.579.2.5 93 1955 Unknown [id number] 2.16.840.1.666268.3.579.2.5 93 1955 Unknown [id number] 2.16.840.1.062916.3.579.2.5 93 1955 Unknown [id number] 2.16.840.1.687107.3.579.2.5 93 1955 Unknown [id number] 2.16.840.1.104179.3.579.2.5 93 1955 Unknown [id number] 2.16.840.1.553664.3.579.2.5 93 1955 Unknown [id number] 2.16.840.1.062930.3.579.2.1 068 1955 Unknown [id number] 2.16.840.1.065112.3.579.2.1 244 1955 Unknown [id number] 2.16.840.1.993295.3.579.2.1 244 1955 Unknown [id number] 2.16.840.1.822499.3.579.2.1 286 1955 Unknown [id number] 2.16.840.1.118155.3.579.2.1 286 1955 Unknown [id number] 2.16.840.1.354076.3.579.2.1 286 1955 Unknown [id number] 2.16.840.1.287789.3.579.2.7 27 1955 Unknown [id number] 2.16.840.1.413051.3.579.2.7 27 1955 Unknown [id number] 2.16.840.1.819866.3.579.2.7 27 1955 Unknown [id number] 2.16.840.1.763572.3.579.2.7 1955 Unknown [id number] 2.16.840.1.036461.3.579.2.7 1955 Unknown [id number] 2.16.840.1.627230.3.579.2.1 286 1955 Unknown [id number] 2.16.840.1.161860.3.579.2.7 27 1955 Unknown [id number] 2.16.840.1.647456.3.579.2.7 1955 Unknown [id number] 2.16.840.1.969146.3.579.2.7 1955 Unknown [id number] 2.16.840.1.506094.3.579.2.7 1955 Unknown [id number] 2.16.840.1.692189.3.579.2.7 1955 Unknown [id number] 2.16.840.1.981154.3.579.2.7 1955 Unknown [id number] 2.16.840.1.928876.3.579.2.7 1955 Unknown [id number] 2.16.840.1.525059.3.579.2.7 1955 Unknown [id number] 2.16.840.1.419897.3.579.2.7 1955 Unknown [id number] 2.16.840.1.294195.3.579.2.7 1955 Unknown [id number] 2.16.840.1.589035.3.579.2.7 27 Unknown [id number] 2.16.840.1.959377.3.579.2.5 31 Social History Date Type Detail Facility Start: 03-19-2022 End: 05-26-2023 Alcohol use [facility] use [facility] [facility] DO Work Phone: Comment on above: 1-2 cups of coffee d gurpreet; Start: 03-19-2022 End: 05-26-2023 Sex Assigned At [facility] Other Start: 04-08-2019 End: 03-19-2022 Tobacco smoking status NHIS Ex-smoker (finding) [facility] Start: 1955 Sex Assigned At Male F [facility] Start: 03-19-1974 End: 05-09-1996 History of tobacco use Current smoker [facility] Work Phone: Start: 03-19-1974 End: 05-09-1996 History of tobacco use Cigarette Smoker [facility] Work Phone: Start: 03-19-2022 End: 05-26-2023 Tobacco use and exposure Smokeless tobacco non-user [facility] Work Phone: Start: 06-18-2023 End: 05-02-2024 Alcohol intake Current drinker of alcohol (finding) [facility] Work Phone: Start: 1955 Sex Assigned At Not on file U [facility] Work Phone: Start: 06-08-2023 End: 03-22-2024 Exposure to SARS-CoV-2 (event) Not sure [facility] Start: 03-27-2022 Tobacco smoking stat us RIIS Never smoked tobacco (finding) [facility] Start: 12-21-2014 End: 06-09-2024 Sex Male (finding) [facility] Has the [employer] s, oil, or water company threatened to shut off services in your home in past 12Mo No [facility] Do you belong to any clubs or organizations such as latter day groups, unions, fraternal or athletic groups, or school groups? Yes [facility] Are you now , , , , never or living with a partner? [facility] How often to you hav e a drink containing alcohol? 4 or more times a week [facility] How many standard dr inks containing alcohol do you have on a typical day? 1 or 2 [facility] How often do you hav e 6 or more drinks on 1 occasion? Less than monthly [facility] How hard is it for y ou to pay for the very basics like food, housing, medical care, and heating Not hard at all [facility] Do you feel stress - tense, restless, nervous, or anxious, or unable to sleep at night because your mind is troubled all the time - these days [OSQ] Not at all [facility] Start: 03-20-[address] [facility] How hard is it for y ou to pay for the very basics like food, housing, medical care, and heating Not very hard [facility] Medical Equipment Procedure Code Equipment Code Equipment Origin al Text Equipment Identifier Dates Accu-Chek Carley Plus test strips TEST ONCE DAILY [id number] End: 06-29-2023 Accu-Chek Fastcl ix Lancet Drum USE ONCE DAILY DIRECTED [id number] End: 06-29-2023 Accu-Chek FastCl ix Lancing Device [id number] End: 07-02-2023 Accu-Chek Carley Plus test strips TEST ONCE DAILY [id number] Start: 06-29-2023 End: 07-02-2023 Accu-Chek Fastcl ix Lancet Drum USE ONCE DAILY DIRECTED [id number] Start: 06-29-2023 End: 07-02-2023 Accu-Chek Carley Plus test strips TEST ONCE DAILY [id number] Start: 07-03-2023 End: 08-04-2024 Accu-Chek Fastcl ix Lancet Drum USE ONCE DAILY DIRECTED [id number] Start: 07-03-2023 End: 08-04-2024 Accu-Chek FastCl ix Lancing Device [id number] Start: 07-03-2023 End: 08-04-2024 Accu-Chek Carley Plus test strips TEST ONCE DAILY [id number] Start: 07-03-2023 Accu-Chek Fastcl ix Lancet Drum USE ONCE DAILY DIRECTED [id number] Start: 07-03-2023 End: 08-04-2024 Accu-Chek Fastcl ix Lancet Drum USE ONCE DAILY DIRECTED [id number] Start: 08-04-2024 Accu-Chek FastCl ix Lancing Device [id number] Start: 08-04-2024 Accu-Chek Carley Plus test strips TEST ONCE DAILY [id number] Start: 08-04-2024 Accu-Chek Fastcl ix Lancet Drum USE ONCE DAILY DIRECTED [id number] Start: 08-04-2024 Goals Date Patient Goal Desired Activity /State Clinical Notes 07-24-2021 to 08-08-2024 Telephone Encounter - Belkys Merino CMA - 08/08/2024 5:06 PM EDTTelephone Encounter - Belkys Merino CMA - 08/08/2024 5:06 PM EDTJosh Ospina DO - 05/02/2024 9:30 AM EST Note Date & Type Note Facility 08-08-2024 Miscellaneous Notes [facility] documented in this encounter [facility] 08-08-2024 Telephone encounter Note [facility] 07-18-2024 Note Patient Education Urology Hypogonadism, Male Male [...] Follow these instructions at home: ??? Take lain-nov-gldslrk and prescription medicines only as told by [...] you discuss any (more content not included)... [facility] 05-02-2024 Note Patient Education Urology Hypogonadism, Male [...] Follow these instructions at home: ??? Take ezez-oxv-zfyccwr and prescription medicines only as told by [...] you discuss any (more content not included)... [facility] 05-02-2024 History of Presen t illness Narrative Subjective Patient ID: Mike Florentino is a 68 y.o. male. Right presents today for diabetic and cardiovascular recheck. He is taking his medications. He is not having any side effects. He is seeing the insurance consultant. Does have intermittent bilateral thigh pain that [...] Exam Vitals reviewed. Exam conducted with a reconstructive dentist present (Jagruti Dumont MS3). Constitutional: General: He [...] polyneuropathy, without long-term current use of insulin ([facility]) - Microalbumin - Albumin: Creatinine Urine Ratio; Future His A1c was very good at 6.7%. Continue current regimen. Check ACR Essential hypertension Blood pressure at goal. Continue current regimen Peripheral vascular disease (CMS-HCC) Stable. His thigh pain does not seem [...] possibly statin induced documented in this encounter [facility] 03-22-2024 Evaluation note Diagnosis Onset Date Resolution Coronary artery disease acute N ov2023 10:38am Diabetes acute March 22, 2024 10:38am Essential hypertension acute No vember 2023 10:38am ROCK (obstructive sleep apnea) acute March 22 10:38am [facility] Work Phone: 1(516) 763-814411-05-2024 History of Present illness Narrative* Jade Gale MD - 03/22/2024 8:40 AM EST Subjective Mike Florentino is a 68 y.o. male Chief Complaint Follow-up HPI Patient is in the office for follow-up for CAD, PAD and other medical problems noted below. He has not had any cardiovascular events since he was last seen in the office earlier this year. His weighthas not increased from last visit which is [...] and no change in medication is needed, riskfactors have been controlled 2. Obstructive sleep apnea, on CPAP machine. 3. 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 Sleep apnea, unspecified [...] my direction and personally dictated by me. Ihave reviewed the chart and agree that the record accurately reflects my personal performance of the history, physical exam, discussion and plan. [facility] Work Phone: 1(447) 661-216111-05-2024 Instructions* Patient Instructions* Buffy Funez LPN - 03/22/2024 8:40 AM [...] Lab work Follow up [facility] Work Phone: 1(493) 234-922610-14-2024 Miscellaneous Notes* Telephone Encounter - Kelly Brandt - 02/29/2024 11:37 AM EDT PATIENT IS COMING IN 05/02 AND WOULD LIKE LABS SENT TO [facility] PLEASE AND THANKK YOU documented in this encounterAdena Health SystemHomeRun [facility] [id number] Telephone encounter Note* Telephone Encounter - Kelly Brandt - 02/29/2024 11:37 AM EDT PATIENT IS COMING IN 05/02 AND WOULD LIKE LABS SENT TO [facility] PLEASE AND THANKK YOU [facility] Center[facility] [id number] NotePatient Education Urology Hypogonadism, Male Male hypogonadism is [...] testosterone levels. This includes blood tests. Testosterone levelscan change throughout the day. Levels are highest in the morning. You may need to have repeat bloodtests before getting a diagnosis of hypogonadism. Depending [...] Follow these instructions at home: ? Take dxem-cue-zegfmcw and prescription medicines only as told by [...] age is the most common cause of thiscondition. ? Low testosterone can also be caused by many diseases and conditions that affect the testicles andthe making of testosterone. ? This condition is treated with testosterone replacement therapy. ? There are risks and side effects of testosterone therapy. Your health care provider will consideryour age, medical history, symptoms, and risks for prostate cancer before putting you on testosterone therapy. This information is not intended to replace advice given to you by your health care provider. Make sure you discuss any questions you have with your health care provider. Document Revised: (more content not included)...[facility] 07-02-2023 Miscellaneous Notes* Telephone Encounter - Kenzie Richards CMA - 07/02/2023 4:40 PM EST Pt called and needs all GULOSE TESTING supplies sent to [facility] due to medicare only covering them from there. [facility] Note* Telephone Encounter - Kenzie Richards CMA - 07/02/2023 4:40 PM EST Pt called and needs all GULOSE TESTING supplies sent to [facility] due to medicare only covering them from there. [facility]-14[facility] Miscellaneous Notes* Telephone Encounter - Belkys Merino CMA - 07/01/2023 1:20 PM EST Pt called yaritza pao called him stated his insurance is not covering his lancets or strips there wanted to know if you could point him in the right direction as he is not sure * Telephone Encounter - Josh Ospina DO - 07/01/2023 1:20 PM EST It sounds like a formulary issue. They should cover some type of glucometer and test strips. Have him check his formulary and see which brand is covered and then let us know. * Telephone Encounter - Belkys Merino CMA - 07/01/2023 1:20 PM EST He did say when he got home he was going to call his insurance and see what was going on [facility] Telephone encounter Note* Telephone Encounter - Belkys Merino CMA - 07/01/2023 1:20 PM EST Pt called yaritza aid called him stated his insurance is not covering his lancets or strips there wanted to know if you could point him in the right direction as he is not sure [facility] [employer]02-14-2024 Telephone encounter Note* Telephone Encounter - Josh Ospina DO - 07/01/2023 1:20 PM EST It sounds like a formulary issue. They should cover some type of glucometer and test strips. Have him check his formulary and see which brand is covered and then let us know. [facility]02-14-2024 Telephone encounter Note* Telephone Encounter - Belkys Merino CMA - 07/01/2023 1:20 PM EST He did say when he got home he was going to call his insurance and see what was going on [facility]02-08-2024 History of Present illness Narrative* Josh Ospina DO - 06/25/2023 10:00 AM EST Subjective Patient ID: Mike Florentino is a 67 y.o. male. Mike presents today to discuss several issues regarding his medications. He had labs done ordered bythe insurance consultant at another facility and is here to [...] found out it was for seizures and shinglespain and he has never had either. He does have diabetic neuropathy in explain that that was the reason for prescribing it. It is commonly used for that condition. He is willing to stop it as his painis not bad. He did stop the aspirin because when he was taking it with his other medicines he wouldget an upset stomach. He is also concerned that his liver might be damaged from all these medications. He is taking the metformin and he is okay with that. He has been on the Januvia for quite some ti me and so far that is affordable. He is not interested in switching to a weekly injectable like Ozempic or Trulicity. He was anemic on his last labs and his platelet count was slightly low. Does not have any symptoms.He does donate blood regularly usually every 6-8 weeks unless he is borderline low and he has been told that his blood count is borderline so he has not given quite as often lately. His colonoscopy was done April 08, [address] Adames in [place] and it was normal. He has been getting pain in his thighs lately. His insurance consultant told him it was probably his circulation [...] past medical history, past social history, past surgicalhistory, problem list, and medication reconciliation was completed including current medication andpost discharge medication. Review of Systems Objective Physical [...] polyneuropathy, without long-term current use of insulin ([facility]) We discussed his medications. He would like [...] is aware of that. Peripheral vascular disease ([facility]) Follow-up with cardiology as directed. Controlling risk factors are important. His lipids and CMP were essentially at goal. documented in this encounterAdena Health SystemHomeRun [facility] [id number] History of Present illness Narrative* Jade Gale MD - 06/18/2023 9:00 AM EST Subjective Mike Florentino is a 67 y.o. male Chief Complaint Follow-up HPI Patient is in the office for follow-up for the problems noted below. He has had no cardiac events since he was last seen. He does have stable claudication in the lower extremities. He continues to beon antiplatelet therapy and statin. He is non-smoker. 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 6. Hypertension, presently under control. No side effect of medications 7. Diabetes, managed by PCP apparently is under control. 8. Patient had abdominal ultrasound to rule out AAA last summer which came back normal Jade Gale MD, [facility] Review of Systems All other systems [...] mg) by mouth 2 times a day., Disp:, Rfl: metFORMIN (Glucophage) 500 mg tablet, Take 2 tablets (1,000 mg) by mouth 2 times a day., Disp: , Rfl: ramipril (Altace) 10 mg capsule, Take 1 capsule (10 mg) by mouth once daily., Disp: , Rfl: rosuvastatin (Crestor) 10 mg tablet, Take 1 tablet (10 mg) by mouth once daily at bedtime., Disp: ,Rfl: SITagliptin phosphate (Januvia) 100 mg tablet, Take 1 tablet (100 mg) by mouth once daily., Disp: ,Rfl: tamsulosin (Flomax) 0.4 mg 24 hr capsule, [...] without complication, without long-term current use of insulin(CMS/HCC) Follow Up In Cardiology Alanine Aminotransferase Aspartate Aminotransferase Basic Metabolic Panel CBC Lipid Panel Alanine Aminotransferase Aspartate Aminotransferase Basic Metabolic Panel CBC Lipid Panel 6. Former smoker 7. Overweight Scribe Attestation By signing my name below, Narcisa Manzano LPN , Scribann[employer]e attest that this documentation has been prepared under the direction and in the presence of Jade Gale MD. documented in this [facility] Work Phone: 1(837) 266-223402-01-2024 Instructions* Patient Instructions* Willian Sumner MA - 06/18/2023 9:00 AM [...] time of your visit. documented in this [facility] Work Phone: 1(598) 986-793511-10-2022 Evaluation note* Encounter Date Diagnosis Assessment Notes Treatment Notes Treatment Clinical Notes Mar, Obstructive sleep apnea (ICD-10 - [...] sleepiness, or poor response to treatment. . What the Trend Other 03-09-2022 NotePROCEDURE: XR KNEE RT 4V [...] Electronically authenticated by: EILEEN QURESHI Date: 2021-07-24 17:01[facility] CenterEvaluation noteNo assessment information availableBethesda North Hospital Work Phone: Evaluation note* Diagnosis ASCVD (arteriosclerotic cardiovascular disease)- Primary Unspecified cardiovascular disease Peripheral vascular disease (CMS/HCC) Unspecified peripheral vascular disease Essential hypertension Unspecified essential hypertension Hyperlipidemia, unspecified hyperlipidemia type Other specified diabetes mellitus without complication, without long-term current use of insulin (CMS/HCC) Former smoker Personal history of tobacco use, presenting hazards to health Overweight documented in this encounter [facility] Work Phone: Evaluation note* Diagnosis ASCVD (arteriosclerotic cardiovascular disease)- Primary Unspecified cardiovascular disease Peripheral vascular disease (CMS-HCC) Unspecified peripheral vascular disease Essential hypertension Unspecified [...] stated as uncontrolled documented in this encounter [facility] Work Phone: Evaluation note* Diagnosis Type 2 diabetes mellitus with diabetic polyneuropathy, without long-term current use of insulin ([facility])- Primary Normocytic normochromic anemia Unspecified anemia Peripheral vascular disease (CMS-HCC) Unspecified peripheral vascular disease Thrombocytopenia (CMS-HCC) Unspecified thrombocytopenia [facility] Diagnosis Type 2 diabetes mellitus with diabetic polyneuropathy, without long-term current use of insulin (CMS-HCC)- Primary [facility]* Diagnosis Type 2 diabetes mellitus with diabetic polyneuropathy, without long-term current use of insulin ([facility])- Primary [facility] encounter [facility]* Diagnosis Normocytic normochromic anemia- Primary Unspecified anemia Type 2 diabetes mellitus with diabetic polyneuropathy, without long-term current use of insulin ([facility]) Essential hypertension Unspecified essential hypertension [facility] Diagnosis Type 2 diabetes mellitus with diabetic polyneuropathy, without long-term current use of insulin ([facility])- Primary Essential hypertension Unspecified essential hypertension Peripheral vascular disease (CMS-HCC) Unspecified peripheral vascular disease ASCVD (arteriosclerotic cardiovascular disease) Unspecified cardiovascular disease Class 1 obesity due to excess calories with serious comorbidity and body mass index (BMI) of 30.0 to 30.9 in adult Myalgia Unspecified myalgia and myositis documented in this [facility]* Diagnosis Type 2 diabetes mellitus with diabetic polyneuropathy, without long-term current use of insulin ([facility]) documented in this encounter [facility] SystemHistory general Narrative - Reported* Type Description Date Medical History ROCK (obstructive sleep apnea) Medical History CAD in [place] artery Surgical History heart stent Surgical History left hip replacement What the Trend Other InstructionsNot on filedocumented in this encounter [facility] [...] on filedocumented in this encounter [facility] SystemReason for referral (narrative)* Consultation (Routine) - Authorized Specialty Diagnoses / Procedures Referred By Kevin roman Referred To Contact Cardiology Diagnoses ASCVD (arteriosclerotic cardiovascular disease) Peripheral vascular disease (CMS/HCC) Essential hypertension Hyperlipidemia, unspecified hyperlipidemia type Other specified diabetes mellitus without complication, without long-term current use of insulin ([facility]) Procedures Follow Up In Cardiology Jade Gale MD [address] [facility] 2, [place] [address] [place] [id number] Jade Gale MD [address] [facility] 2, [facility] [address] [place] [address] Referral ID Status Reason Start Date Expiration Date V isits Requested Visits Authorized [id number] Authorized 06/18/2023 06/17/2024 1 1 [facility] Work Phone: Summary Purpose Family [...] Chief Complaint ROCK/ 2 YEAR Chief Complaint Admit Date ROCK/ 2 YEAR March 22, 2024 1 0:38am hx of colon polyps May 04, 2024 8:27am hx of colon polyps May 04, 2024 10:29am Amb Documentation May 04, 2024 3:16pm ROCK June 09, 2024 1 :37pm Reason for Visit Admit Date Coronary artery disease March 22 10:38am Diabetes March 22, 2024 1 0:38am Essential hypertension March 22 10:38am ROCK (obstructive sleep apnea) March 222023 10:38am Chief Complaint * MIKE FLORENTINO is being [...] with tobacco use. 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, currently has stable [...] aortic aneurysm which is scheduled * Jade Glae MD, FACC Additional Source Comments (unrecognized sect ion and content) No Status Records FoundNo Status Records FoundNo Status Records FoundNo Status Records FoundNo Status Records FoundNo Status Records FoundNo Status Records FoundNo Status Records FoundNo Status Records FoundNo Status Records FoundNo Status Records Found INFORMATION SOURCE (unrecogn ized section and content) DATE CREATED AUTHOR 11/06/2017 [facility] DATE CREATED AUTHOR AUTHOR'S ORGANIZ ATION 02/16/2022 [facility] [place] DATE CREATED AUTHOR AUTHOR'S ORGANIZ ATION 02/16/2022 [employer] DATE CREATED AUTHOR AUTHOR'S ORGANIZ ATION 05/08/2022 [facility] DATE CREATED AUTHOR AUTHOR'S ORGANIZ ATION 01/07/2023 [facility] DATE CREATED AUTHOR AUTHOR'S ORGANIZ ATION 04/19/2024 [facility] DATE CREATED AUTHOR AUTHOR'S ORGANIZ ATION 05/04/2024 [facility] DATE CREATED AUTHOR AUTHOR'S ORGANIZ ATION 05/04/2024 [facility] DATE CREATED AUTHOR AUTHOR'S ORGANIZ ATION 05/05/2024 [facility] DATE CREATED AUTHOR AUTHOR'S ORGANIZ ATION 05/19/2024 [facility] DATE CREATED AUTHOR AUTHOR'S ORGANIZ ATION 08/29/2024 [facility] Care Teams (unrecognized sec tion and content) Team Status: Active Member Role Status Dates Josh BermudezrinkuDO gregg Primary Care Provider Active Team Status: Inactive Member Role Status Dates Josh Larajenny Primary Care Provider Active Start: March 22, 2024 End: March 22, 2024 Lyn Pollack NP Attending Provider Active Start: March 22, 2024 End: March 22, 2024 Team Status: Inactive Member Role Status Dates Josh Larajenny Primary Care Provider Active Aryan Garcia MD Attending Provider Active Assembler Arranger Relationship Specialty Start Date End Date Josh Ospina DO [address] [place] [address] PCP - General 05/18/99 Assembler Arranger Relationship Specialty Start Date End Date Josh Ospina DO PCP - General 05/18/99 Team Status: Inactive Member Role Status Dates Josh Bermudezrinkugregg Primary Care Provider Active Start: May 04, 2024 End: May 04, 2024 Shanique Chiang MD Attending Provider Active Start: May 04, 2024 End: May 04, 2024 Team Status: Active Member Role Status Dates Josh Larajenny Primary Care Provider Active Start: May 04, 2024 Shanique Chiang MD Attending Provider, Other Provider Active Start: May 04, 2024 Team Status: Active Member Role Status Dates Josh Larajenny Primary Care Provider Active Start: May 04, 2024 Jaymie Krueger CMA Attending Provider Active St art: May 04, 2024 Team Status: Inactive Member Role Status Dates Josh Lararinkugregg Primary Care Provider Active Start: June 09, 2024 End: June 09, 2024 Lyn Pollack NP Attending Provider Active Start: June 09, 2024 End: June 09, 2024 Assembler Arranger Relationship Specialty Start Date End Date Josh Ospina DO [address], [place] [address] PCP - General Family Medicine 03/19/22 Assembler Arranger Relationship Specialty Start Date End Date Josh Ospina DO [address] [place] [address] PCP - General Family Medicine 03/19/22 Assembler Arranger Relationship Specialty Start Date End Date LararinkuJosh escobedo DO [address] [place] [address] PCP - General Family Medicine 03/19/22 Assembler Arranger Relationship Specialty Start Date End Date LararinkuJosh escobedo DO [address] [place] [address] PCP - General Family Medicine 03/19/22 Assembler Arranger Relationship Specialty Start Date End Date LararinkuJosh escobedo DO [address] [place] [address] PCP - General Family Medicine 03/19/22 Assembler Arranger Relationship Specialty Start Date End Date LararinkuJosh escobedo DO [address] [place] [address] PCP - General Family Medicine 03/19/22 Assembler Arranger Relationship Specialty Start Date End Date LararinkuJosh escobedo DO [address] [place] [address] PCP - General Family Medicine 03/19/22 Assembler Arranger Relationship Specialty Start Date End Date LararinkuJosh escobedo DO [address] [place] [address] PCP - General Family Medicine 03/19/22 Assembler Arranger Relationship Specialty Start Date End Date Josh Ospina DO [address], [place] [address] PCP - General Family Medicine 03/19/22 Assembler Arranger Relationship Specialty Start Date End Date Josh Ospina DO [address], [place] [address] PCP - General Family Medicine 03/19/22 Assembler Arranger Relationship Specialty Start Date End Date Josh Ospina DO [address], [place] [address] PCP - General Family Medicine 03/19/22 Assembler Arranger Relationship Specialty Start Date End Date Josh Ospina DO [address], [place] [address] PCP - General Family Medicine 03/19/22 Assembler Arranger Relationship Specialty Start Date End Date Josh Ospina DO [address], [place] [address] PCP - General Family Medicine 03/19/22 Goals (unrecognized section and content) Goals may be documented in a n alternate section Reason for Visit (unrecogniz ed section and content) Reason Onset Date Comments Med Refill 08/08/2024 Reason Onset Date Comments Med Refill 07/11/2024 Reason Comments Diabetes 139 in the am Reason Comments Med Refill Reason Onset Date Comments Med Refill 01/12/2024 Reason Onset Date Comments Med Refill 07/01/2023 Reason Onset Date Comments Med Refill 06/29/2023 Reason Comments dicuss medication Reason Onset Date Comments Med Refill 06/23/2023 Reason Comments Follow-up 9 months Specialty Diagnoses / Procedures Referred By Kevin t Referred To Contact Cardiology Diagnoses ASCVD (arteriosclerotic cardiovascular disease) Peripheral vascular disease ([facility]) Essential hypertension Hyperlipidemia, unspecified hyperlipidemia type Other specified diabetes mellitus without complication, without long-term current use of insulin Procedures Follow Up In Cardiology Jade Gale MD [address] [place] [address] [address], [address] [address] Phone: tel: fax: Jade Gale MD [address]03 [facility] 2, [address] [address] Phone: tel: fax: Referral ID Status Reason Start Date Expiration Date V isits Requested Visits Authorized [id number] Authorized 06/18/2023 06/17/2024 1 1 Reason Comments Follow-up 9 month FOR RECORDS [...] BE BASED ON THE PRIMARY CLINICAL RECORDS. [facility] [employer] [facility]. provides no warranty or guarantee of the accuracy or completeness of information in this document.
[2024-08-30 08:13] LABS: Basophils Percent Auto 0.2 % (0.2-2.0); Eosinophils Absolute Auto 0.1 10^3/uL (0.0-0.7); Eosinophils Percent Auto 1.2 % (0.9-7.0); Hematocrit 39.9 % (42.0-54.0); Hemoglobin 13.5 g/dL (14.0-18.0); Immature Granulocytes Abs Auto 0.01 10^3/uL (0.00-0.03); Immature Granulocytes Pct Auto 0.2 % (0.0-0.5); Lymphocytes Absolute Auto 1.3 10^3/uL (1.2-3.8); Mean Corpuscular HGB Conc 33.8 g/dL (29.9-35.2); Mean Corpuscular Hemoglobin 30.9 pg (25.9-34.0); Mean Corpuscular Volume 91.3 fL (80.0-94.0); Mean Platelet Volume 11.1 fL (9.5-13.5); Monocytes Absolute Auto 0.3 10^3/uL (0.3-0.8); Monocytes Percent Auto 5.8 % (1.7-12.0); Neutrophils Percent Auto 70.6 % (43.0-75.0); Platelet Count 161 10^3/uL (150-450); Red Blood Count 4.37 10^6/uL (4.70-6.10); Red Cell Distribution Width 13.1 % (11.0-15.0); White Blood Count 5.7 10^3/uL (4.0-11.0)
[2024-08-30 08:30] LABS: Erythrocyte Sedimentation Rate 10 mm/hr (<=20)
[2024-08-30 08:43] LABS: Alanine Aminotransferase 17 U/L (16-63); Albumin Globulin Ratio 1.4; Albumin Level 3.8 g/dL (3.4-5.0); Alkaline Phosphatase 50 U/L (46-116); Aspartate Amino Transferase 17 U/L (15-37); BUN Creatinine Ratio 17.6; Bilirubin Total 0.6 mg/dL (0.2-1.0); Calcium 8.9 mg/dL (8.5-10.1); Carbon Dioxide 28.5 mmol/L (21.0-32.0); Chloride 102 mmol/L (98-107); Estimated GFR (African America >60 (>=60 mL/min/1.73m^2); Estimated GFR (Non-African Ame >60 (>=60 mL/min/1.73m^2); Globulin 2.8 g/dL; Glucose 122 mg/dL (74-106); Potassium 4.5 mmol/L (3.5-5.1); Sodium 137 mmol/L (136-145); Total Protein 6.6 g/dL (6.4-8.2)
== END 2024-08-30 07:24 | disposition home or self-care (01) ==
LOC: LAB 07:25
PROVIDERS: PCP Family Medicine; Visit Provider Internal Medicine Rheumatology
DX: M15.0 Primary generalized (osteo)arthritis (principal); M05.79 Rheumatoid arthritis 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; Z79.899 Other long term (current) drug therapy
CPT/HCPCS: 36415; 80053; 85025; 85652

== ENCOUNTER 2024-10-31 07:25 | Outpatient (OUT) | payer MEDICARE, OTHER, SELFPAY ==
--- OUTSIDE RECORDS SUMMARY | 2024-10-31 07:28 | XMS_ITS | Encounter Summary ---
Author Organization [facility] Address [address] [place] [address] Phone Care Team Providers Care Public Area Attendant Name Role Phone Josh Ospina DO Primary Care Provider Encounter Details Date Type Department Care Team (Late st Contact Info) Description 03/17/2023 Scanned Document [facility] [address] [place] [id number] Scanning, Generic Provider Social History Tobacco Use Types Packs/Day Years Used Date Smoking Tobacco: Never Assessed Sex and Gender Information Value Date Recorded Sex Assigned at Not on file Legal Sex Male 1:11 PM EST Gender Identity Not on file Sexual Orientation Not on file documented as of this encounter Plan of Treatment Upcoming Encounters Date Type Department Care Team (Late st Contact Info) Description 12/27/2024 8:50 AM EDT Office Visit [facility] [address] [facility] [address] [place] [address] Jade Gale MD 703 [facility] 2, [place] [address] [place] [address] documented as of this encounter Visit Diagnoses Not on filedocumented in this encounter Care Teams Public Area Attendant Relationship Specialty Start Date End Date Josh Ospina DO PCP - General 05/18/99 documented as of this encounter
--- OUTSIDE RECORDS SUMMARY | 2024-10-31 07:28 | XMS_ITS | Encounter Summary ---
Author Organization [facility] Address [address] [place] [address] Phone Care Team Providers Care Electrician Maintenance Name Role Phone Josh Ospina DO Primary Care Provider Encounter Details Date Type Department Care Team (Late st Contact Info) Description 01/05/2023 Scanned Document [facility] [address] [place] [address] Conversion, Onbase Social History Tobacco Use Types Packs/Day Years [...] Description 12/27/2024 8:50 AM EDT Office Visit [facility] [address] [address] Jade Gale MD 703 [facility] 2, [place] [address] [place], [place] [id number] documented as of this encounter Procedures Procedure Name Priority Date/Time Associated Diagnosis Comments OUTSIDE IMAGING SCAN 01/05/2023 documented in this encounter Results * OUTSIDE IMAGING SCAN (01/05/2023) Anatomical Region Laterality Modality Other Narrative 01/05/2023 Ordered by an unspecified provider. us Onbase Conversion OUTSIDE SCAN Final Result documented in this encounter Visit Diagnoses Not on filedocumented in this encounter Care Teams Electrician Maintenance Relationship Specialty Start Date End Date Josh Ospina DO PCP - General 05/18/99 documented as of this encounter
--- OUTSIDE RECORDS SUMMARY | 2024-10-31 07:29 | XMS_ITS | Encounter Summary ---
Author Organization [facility] tem Address [id number] [address] [place] [address] Care Team Providers Care Astronomy Professor Name Role Phone Josh Ospina Primary Care Provider Encounter Details Date Type Department Care Team (Late st Contact Info) Description 04/22/2024 Orders Only [facility] - Family Medicine [address] [place] [address] Ref Prov, [place] [address] Social History Tobacco Use Types Packs/Day Years Used Date Smoking Tobacco: Former Cigarettes 2 22.1 1 05/19/1973 - 05/09/1996 Smokeless Tobacco: Never Alcohol Use Standard Drinks/Week Comments Yes 0 (1 standard drink = 0.6 oz pur e alcohol) Occasional C Utilities Answer Date Recorded In the past 12 months has [employer], gas, oil, or water [employer] threatened to shut off services in your home? No 05/04/2023 Social Connection and Isolat ion Panel [NHANES] Answer Date Recorded In a typical week, how many times do you talk on the phone with family, friends, or neighbors? More than three times a week 03/19/2022 How often do you get togethe r with friends or relatives? More than three times a week 03/19/2022 How often do you attend chur or orthodoxy services? More than 4 times per year 03/19/2022 Do you belong to any clubs o r organizations such as sabianism groups, unions, fraternal or athletic groups, or school groups? Yes 03/19/2022 How often do you attend meet ings of the clubs or organizations you belong to? More than 4 times per year 03/19/2022 Are you , , di vorced, , never , or living with a partner? 03/19/2022 AUDIT-C Answer Date Recorded Q1: How often do you have a drink containing alcohol? 4 or more times a week 03/19/2022 Q2: How many drinks containi ng alcohol do you have on a typical day when you are drinking? 1 or 2 Q3: How often do you have si x or more drinks on one occasion? Less than monthly 03/19/2022 Overall Financial Resource Strain (CARDIA) Answe r Date Recorded How hard is it for you to pa y for the very basics like food, housing, medical care, and heating? Not very hard 06/25/2023 PHQ-2 Answer Date Recorded Total Score 0 06/25/2023 [facility] of Occupat ional Health - Occupational Stress Questionnaire Answer Date Recorded Do you feel stress - tense, restless, nervous, or anxious, or unable to sleep at night because your mind is troubled all the time - these days? Not at all 03/19/2022 Exercise Vital Sign Answer Date Recorde d On average, how many days pe r week do you engage in moderate to strenuous exercise (like a brisk walk)? 0 days 03/19/2022 On average, how many minutes do you engage in exercise at this level? 0 min 03/19/2022 PRAPARE - Transportation Answer Date Re corded In the past 12 months, has l ack of transportation kept you from medical appointments or from getting medications? No 06/2021 In the past 12 months, has l ack of transportation kept you from meetings, work, or from getting things needed for daily living? No 03/19/2022 Housing Instability Answer Date Recorde d Are you worried or concerned that in the next two months you may not have stable housing that you own, rent or stay in as a part of a household? No 06/25/2023 Childcare Answer Date Recorded Do problems getting child ca re make it difficult for you to work or study? No 03/19/2022 Employment Answer Date Recorded Do you need help finding a [facility] career center and/or a training program? No 03/19/2022 Hunger Screening Answer Date Recorded Within the past 12 months we worried whether our food would run out before we got money to buy more. Never True 06/25/2023 Within the past 12 months th e food we bought just didn't last and we didn't have money to get more. Never True 06/25/2023 Purpose - Life Answer Date Recorded I have a purpose and direction in my life. Stron gly Agree 03/19/2022 Sex and Gender Information Value Date Recorded Sex Assigned at Not on file Legal Sex Male 11:56 AM EDT Gender Identity Not on file Sexual Orientation Not on file documented as of this encounter Plan of Treatment Upcoming Encounters Date Type Department Care Team (Late st Contact Info) Description 10/31/2024 9:00 AM EDT Office Visit [facility] - Family Medicine [address] [place] [address] Josh Ospina DO [address] [facility] [place] [address] documented as of this encounter Procedures Procedure Name Priority Date/Time Associated Diagnosis Comments MULTIPLE LABS Routine 04/18/2024 10:25 AM EST documented in this encounter Results * Multiple labs (04/18/2024 10:25 AM EST) us Not In System Ref Prov IA IMAGING Final Res ult MANUALLY TRANSCRIBED RESULTS documented in this encounter Visit Diagnoses Not on filedocumented in this encounter Additional Health Concerns Assessment Noted Time PHQ-9 Depression Total Score: 0 06/25/19 24 9:56 AM EST documented as of this encounter Care Teams Astronomy Professor Relationship Specialty Start Date End Date Josh Ospina DO [address] [facility] [place] [place] [address] PCP - General Family Medicine 03/19/22 documented as of this encounter
--- OUTSIDE RECORDS SUMMARY | 2024-10-31 07:29 | XMS_ITS | Clinical Summary ---
Author Organization [employer] tem Address [id number] [address] [place] [address] Care Team Providers Care Beam Warper Name Role Phone Josh Ospina Primary Care Provider Allergies Active Allergy Reactions Criticality Noted Date Comments Ticagrelor 03/19/2022 Medications verapamil SR (CALAN-SR) 240 mg CR tablet Take 1 tablet (240 mg total) by mouth in the morning. 02/21/20 22 Active tamsulosin (FLOMAX) 0.4 mg capsule tamsulosin 0.4 mg capsule take 1 capsule by mouth once daily Active sildenafiL (VIAGRA) 100 mg tablet sildenafil 100 mg tablet Active ramipriL (ALTACE) 10 mg capsule Take 1 capsule (10 mg total) by mouth in the morning. 02/23/20 22 Active nitroglycerin (NITROSTAT) 0.4 MG SL tablet nitroglycerin 0.4 mg sublingual tablet Active hydrOXYchloroQU INE (PLAQUENIL) 200 mg tablet Take 1 tablet (200 mg total) by mouth in the morning and 1 tablet (200 mg total) before bedtime. 03/01/20 22 Active fluticasone propionate (FLONASE) 50 mcg/actuation nasal spray fluticasone propionate 50 mcg/actuation nasal spray,suspension Active clopidogreL (PLAVIX) 75 mg tablet Take 1 tablet (75 mg total) by mouth in the morning. 03/07/20 22 Active rosuvastatin (CRESTOR) 10 mg tablet rosuvastatin 10 mg tablet take 1 tablet by mouth at bedtime 05/04/20 23 Active blood sugar diagnostic (ACCU-CHEK CARLEY PLUS TEST STRP) stripIndication s:Type 2 diabetes mellitus with diabetic polyneuropathy, without long-term current use of insulin ([facility]) Accu-Chek Carley Plus test strips TEST ONCE DAILY 100 strip 3 07/03/19 24 Active SITagliptin phosphate (JANUVIA) 100 mg tablet take 1 tablet by mouth once daily 90 tablet 1 01/06/20 24 Active testosterone cypionate (DEPOTESTOTERON E CYPIONATE) 200 mg/mL injection INJECT 300 mg (1.5 ml) INTRAMUSCULARLY EVERY FOUR weeks Active meloxicam (MOBIC) 7.5 mg tablet Take 1 tablet (7.5 mg total) by mouth in the morning. 02/16/20 24 Active dapagliflozin propanediol (FARXIGA) 10 mg tablet Take 1 tablet (10 mg total) by mouth in the morning. 30 tablet 5 07/11/19 25 Active lancing device with lancets (ACCU-CHEK FASTCLIX LANCING DEV) kitIndications: Type 2 diabetes mellitus with diabetic polyneuropathy, without long-term current use of insulin ([facility]) Accu-Chek FastClix Lancing Device 1 each 3 08/05/19 25 Active lancets (ACCU-CHEK FASTCLIX LANCET DRUM) miscIndications :Type 2 diabetes mellitus with diabetic polyneuropathy, without long-term current use of insulin ([facility]) Accu-Chek Fastclix Lancet Drum USE ONCE DAILY DIRECTED 100 each 3 08/05/19 25 Active lancets (ACCU-CHEK FASTCLIX LANCET DRUM) misc Accu-Chek Fastclix Lancet Drum USE ONCE DAILY DIRECTED 100 each 3 08/05/19 25 Active blood sugar diagnostic (ACCU-CHEK CARLEY PLUS TEST STRP) strip Accu-Chek Carley Plus test strips TEST ONCE DAILY 100 strip 3 08/05/19 25 Active metFORMIN (GLUCOPHAGE) 500 mg tablet Take 2 tablets (1,000 mg total) by mouth in the morning and 2 tablets (1,000 mg total) in the evening. Take with meals. 360 tablet 1 08/10/19 25 Active Active Problems Problem Noted Date Diagnosed Date Thrombocytopenia 06/25/2023 Normocytic normochromic anemia 06/19/2023 Impotence 03/19/2022 Rotator cuff syndrome of right shoulder 03/19/20 ASCVD (arteriosclerotic cardiovascular disease) 03/19/2022 Decreased testosterone level 03/19/2022 Diabetic neuropathy 03/19/2022 Essential hypertension 03/19/2022 Hyperlipidemia 03/19/2022 Impingement syndrome of shoulder region 03/19/20 Obesity 03/19/2022 Obstructive sleep apnea syndrome 03/19/2022 Peripheral vascular disease 03/19/2022 Tubular adenoma 03/19/2022 Type 2 diabetes mellitus 03/19/2022 Hypogonadism 10/06/2017 Benign prostatic hyperplasia with urinary obstru ction 12/31/2016 Radial styloid tenosynovitis 09/11/2016 Resolved Problems Problem Noted Date Diagnosed Date Resolved Date Intermittent claudication 03/19/2022 Encounters Date Type Department Care Team Description 08/08/2024 Refill [facility] - Family Medicine [address] [place] [address] [facility]/04[facility]2024 Ref[facility] - Family Medicine [address] [place] [address] Belkys Merino [facility] 08/04/2024 Refill [facility] - Family Medicine [address] [place] [address] Kenzie Richards, [facility] Type 2 diabetes mellitus with diabetic polyneuropathy, without long-term current use of insulin ([facility]) from Last 3 Months Immunizations Immunization Administration Dates Next Due COVID-19, mRNA, LNP-S, PF, 100mcg/0.5mL Dose 07/18/2020 COVID-19, mRNA, LNP-S, PF, 3 0mcg/0.3mL Dose 07/18/2020,07/16/2020 Influenza, High-dose, Quadrivalent 03/23/2024, Influenza, Im Trivalent Preservative 02/16/2020, 03/18/2019,03/18/2015 Influenza, Injectable, Mdck, Preservative Free, Quad 04/13/2018 Influenza, Injectable, Quadrivalent 03/02/2019 Influenza, Injectable, quadr ivalent (PF) 02/16/2020,04/20/2017,03/31/2017 Influenza, Unspecified 03/26/2017,2015,07/18/2013,05/18,03/18/2011,05/18/2009,03/18/2009 Pneumococcal Conjugate 13-Valent 04/14/2022,06/18 Pneumococcal Polysaccharide 05/08/2020 Tdap 07/04/2014 Zoster Vaccine Recombinant 06/29/2019,04/28/2019 Family History Medical History Relation Name Comments Colon cancer Brother Hypertension Father Lung cancer Father at age 55 Heart attack Maternal Grandfather Colon cancer Maternal Uncle Heart attack Maternal Uncle Aneurysm Mother Dementia Mother at age 93 Diabetes Sister 1 Relation Name Status Comments Brother Alive Father Maternal Grandfather Maternal Uncle Mother Sister 1 Alive Sister 2 Alive Social History Tobacco Use Types Packs/Day Years Used Date Smoking Tobacco: Former Cigarettes 2 22.1 1 05/19/1973 - 05/09/1996 Smokeless Tobacco: Never Alcohol Use Standard Drinks/Week Comments Yes 0 (1 standard drink = 0.6 oz pur e alcohol) Occasional C Utilities Answer Date Recorded In the past 12 months has [employer], gas, oil, or water [employer] threatened to shut off services in your [...] 03/19/2022 How often do you attend chur ch or presybeterian services? More than 4 times per year 03/19/2022 Do you belong to any clubs o r organizations such as rastafarian groups, unions, fraternal or athletic groups, or [...] PHQ-2 Answer Date Recorded Total Score 0 05/02/2024 [facility]at ionoh Health - Occupational Stress Questionnaire Answer Date [...] Recorded Do you need help finding a [facility] and/or a training program? No 03/19/2022 Hunger Screening Answer Date Recorded Within the past 12 months we worried whether our food would run out before we got money to buy more. Never True 05/02/2024 Within the past 12 months th e food we bought just didn't last and we didn't have money to get more. Never True 05/02/2024 Purpose - Life Answer Date Recorded I have a purpose and direction in my life. Martha gly Agree 03/19/2022 Sex and Gender Information Value Date Recorded Sex Assigned at Not on file Legal Sex Male 11:56 AM EDT Gender Identity Not on file Sexual Orientation Not on file Last Filed Vital Signs Vital Sign Reading Time Taken Comments Blood Pressure 104/52 05/02/2024 9:33 AM EST Pulse 72 05/02/2024 9:33 AM EST Temperature 36.8 C (98.2 F) 05/02/2024 9:33 AM EST Respiratory Rate 18 05/02/2024 9:33 AM EST Oxygen Saturation 99% 05/02/2024 9:33 AM EST Inhaled Oxygen Concentration - - Weight 104.2 kg (229 lb 12.8 oz) 05/02/2024 9:33 AM EST Height 185.4 cm (6' 1 ) 05/02/2024 9:33 AM EST Body Mass Index 30.32 05/02/2024 9:33 AM EST Plan of Treatment Upcoming Encounters Date Type Department Care Team (Late st Contact Info) Description 10/31/2024 9:00 AM EDT Office Visit [facility] - Family Medicine [address] [place] [phone] Josh Ospina DO [address] [place] [address] Health Maintenance Due Date Last Done Comments Adult BMI Follow Up Plan 10/19/1973 Medicare Annual Wellness Visit 09/18/2023 09/17/2022 COVID-19 Vaccine ( season) 2024 08/05/2020, 07/18/2020, 07/18/2020, Additional history exists Diabetic Foot Exam 05/04/2024 05/04/2023, 05/04/2023 DTaP,Tdap and Td Vaccines (2 - Td or Tdap) 07/04/2024 07/04/2014 Influenza Vaccine 01/16/2025 03/23/2024, , 02/05/2023, Additional history exists Diabetic Ophthalmology Exam 04/01/2025 04/01/2024, 1 07/14/2021 Adult BMI Screening 05/02/2025 05/02/2024 Depression Screening 05/02/2025 05/02/2024 Fall Risk Screening 05/02/2025 05/02/2024 Tobacco Screening 05/02/2025 05/02/2024 Colon Cancer Screening 5 Year Sigmoidoscopy 04/08/2029 Postponed from 10/19/2000 (Not Indicated) Zoster (Shingles) Vaccine Completed 06/29/2019, 04/2019 Abdominal Aortic Aneurysm (AAA) Screen Completed 01/05/2023 Medical Devices Not on file Procedures Procedure Name Priority Date/Time Associated Diagnosis Comments DIABETES EYE EXAM Routine 04/01/2024 3:15 PM EST US, [employer] Routine 2022 12:25 PM EDT from Last 3 Months or Most Recently Relevant to Health Maintenance Results * DIABETES EYE EXAM (04/01/2024 3:15 PM EST) us Not In System Ref Prov HEALTH MAINTENANCE Final Result MANUALLY TRANSCRIBED RESULTS * US, [employer], [employer] (01/05/2023 12:25 PM EDT) us Scanning Provider External PROCEDURE/MINOR SURGI OSMANI ORDERABLES Final Result MANUALLY TRANSCRIBED RESULTS from Last 3 Months or Most Recently Relevant to Health Maintenance Insurance [employer]IC[employer] Care Teams Beam Warper Relationship Specialty Start Date End Date Josh Ospina DO [address], [facility] [address] PCP - General Family Medicine 03/19/22
--- OUTSIDE RECORDS SUMMARY | 2024-10-31 07:29 | XMS_ITS | Encounter Summary ---
Author Organization [facility] Address [id number] [address] [place] [address] Care Team Providers Care Business Account Specialist Name Role Phone Josh Ospina DO Primary Care Provider [phone] Reason for Visit * Reason Comments Med Refill Encounter Details Date Type Department Care Team (Late st Contact Info) Description 03/19/2022 Refill [facility] - Family Medicine [address] [place] [address] Josh Ospina DO [address], [facility] [place] [address] Social History Tobacco Use Types Packs/Day Years Used Date Smoking Tobacco: Former Cigarettes 2 22.1 1 05/19/1973 - 05/09/1996 Smokeless Tobacco: Never Alcohol Use Standard Drinks/Week Comments Yes 0 (1 standard drink = 0.6 oz pur e alcohol) Social Connection and Isolat ion Panel [NHANES] Answer Date Recorded In a typical week, how many times do you talk on the phone with family, friends, or neighbors? More than three times a week 03/19/2022 How often do you get togethe r with friends or relatives? More than three times a week 03/19/2022 How often do you attend chur ch or shinto services? More than 4 times per year 03/19/2022 Do you belong to any clubs o r organizations such as yarsanism groups, unions, fraternal or athletic groups, or [...] food, housing, medical care, and heating? Not hard at all 03/19/2022 PHQ-2 Answer Date Recorded Total Score 1 03/19/2022 [facility] of Occupat ional Health - Occupational [...] things needed for daily living? No 03/19/2022 Childcare Answer Date Recorded Do problems getting child ca re make it difficult for you to work or study? No 03/19/2022 Employment Answer Date Recorded Do you need help finding a l ocal career center and/or a training program? No 03/19/2022 Purpose - Life Answer Date Recorded I have a purpose and direction in my life. Stron gly Agree 03/19/2022 Sex and Gender Information Value Date Recorded Sex Assigned at Not on file Legal Sex Male 11:56 AM EDT Gender Identity Not on file Sexual Orientation Not on file COVID-19 Exposure Response Date Recorded In the last month, have you been in contact with someone who was confirmed or suspected to have Coronavirus / COVID-19? No / Unsure 03/19/2022 10:01 AM EDT documented as of this encounter Functional Status * Audit-C Score Answer Date of Assessment Author 5 03/19/2022 11:04 AM Josh Richards DO * Intimate Partner Violence Question Answer Date of Assessment Author Within the last year, have y ou been humiliated or emotionally abused in other ways by your partner or ex-partner? No 03/19/2022 11:03 AM Aram Richards, DO Within the last year, have y ou been afraid of your partner or ex-partner? No 03/19/2022 11:03 AM Josh Richards, DO Within the last year, have y ou been raped or forced to have any kind of sexual activity by your partner or ex-partner? No 03/19/2022 11:03 AM Aram Richards, DO Within the last year, have y ou been kicked, hit, slapped, or otherwise physically hurt by your partner or ex-partner? No 03/19/2022 11:03 AM Josh Richards DO * Question Answer Date of Assessment Author Q1: How often do you have a drink containing alcohol? 4 or more times a week 03/19/2022 11:04 AM Josh Richards DO Q2: How many drinks containing alcohol do you have on a typical day when you are drinking? 1 or 2 03/19/2022 11:04 AM Josh Richards DO Q3: How often do you have six or more drinks on one occasion? Less than monthly 03/19/2022 11:04 AM Josh Richards DO documented as of this encounter Plan of Treatment Upcoming Encounters Date Type Department Care Team (Late st Contact Info) Description 10/31/2024 9:00 AM EDT Office Visit [facility] - Family Medicine [address] [place] [address] Josh Ospina DO [address] [facility] [place] [address] documented as of this encounter Visit Diagnoses Not on filedocumented in this encounter Additional Health Concerns Assessment Noted Time PHQ-9 Depression Total Score: 1 03/19/20 22 10:20 AM EDT documented as of this encounter Care Teams Business Account Specialist Relationship Specialty Start Date End Date Josh Ospina DO [address] [facility] [place] [address] PCP - General Family Medicine 03/19/22 documented as of this encounter
--- OUTSIDE RECORDS SUMMARY | 2024-10-31 07:29 | XMS_ITS | Encounter Summary ---
Author Organization [facility] tem Address [id number] [address] [place] [address] Care Team Providers Care Ncr Operator Name Role Phone Josh Ospina DO Primary Care Provider Encounter Details Date Type Department Care Team (Late st Contact Info) Description 05/04/2024 Orders Only [facility] - Family Medicine [address] [place] [address] Josh Ospina DO [address], [facility] [place] [address] Social History Tobacco Use Types Packs/Day Years Used Date Smoking Tobacco: Former Cigarettes 2 22.1 1 05/19/1973 - 05/09/1996 Smokeless Tobacco: Never Alcohol Use Standard Drinks/Week Comments Yes 0 (1 standard drink = 0.6 oz pur e alcohol) Occasional C Utilities Answer Date Recorded In the past 12 months has [employer], gas, oil, or water [employer] threatened to shut off services in your [...] week 03/19/2022 How often do you attend [facility] or zoroastrian services? More than 4 times per year 03/19/2022 Do you belong to any clubs o r organizations such as taoist groups, unions, fraternal or athletic groups, or [...] Answer Date Recorded Total Score 0 05/02/2024 [facility] of Occupat ional Health - Occupational Stress [...] Recorded Do you need help finding a [facility] career center and/or a training [...] - Family Medicine [address] [place] [address] Josh Ospina DO [address] [place] [address] documented as of this encounter Procedures Procedure Name Priority Date/Time Associated Diagnosis Comments HM COLONOSCOPY Routine 05/04/2024 1:55 PM EST documented in this encounter Visit Diagnoses Not on filedocumented in this encounter Additional Health Concerns Assessment Noted Time PHQ-9 Depression Total Score: 0 05/02/20 24 9:32 AM EST documented as of this encounter Care Teams Ncr Operator Relationship Specialty Start Date End Date Josh Ospina DO [address] [facility] [place] [address] PCP - General Family Medicine 03/19/22 documented as of this encounter
--- OUTSIDE RECORDS SUMMARY | 2024-10-31 07:29 | XMS_ITS | Encounter Summary ---
Author [facility] Address [id number] [address] [place] [address] Care Team Providers Care Sand Cleaning Machine Operator Name Role Phone LaraJosh alvarado Primary Care Provider Encounter Details Date Type Department Care Team (Late st Contact Info) Description 06/25/2023 [facility] [address] [place] [id number] Angelique, Belkys, MOTORBOAT OPERATOR Social History Tobacco Use Types Packs/Day Years Used Date Smoking Tobacco: Former Cigarettes 2 22.1 1 05/19/1973 - 05/09/1996 Smokeless Tobacco: Never Alcohol Use Standard Drinks/Week Comments Yes 0 (1 standard drink = 0.6 oz pur e alcohol) Occasional C Utilities Answer Date Recorded In the past 12 months has [employer], gas, oil, or water company threatened to shut [...] How often do you attend chur or anabaptist services? More than 4 times per year 03/19/2022 Do you belong to any clubs o r organizations such as restorationist groups, unions, fraternal or athletic groups, or [...] Answer Date Recorded Total Score 0 06/25/2023 [facility] of Occupat ional Health - Occupational Stress [...] Recorded Do you need help finding a [facility] career center and/or a training program? No [...] Medicine - Family Medicine [address] [place] [address] Josh Ospina DO [address] [place] [address] documented as of this encounter Visit Diagnoses Not on filedocumented in this encounter Additional Health Concerns Assessment Noted Time PHQ-9 Depression Total Score: 0 06/25/19 24 9:56 AM EST documented as of this encounter Care Teams Sand Cleaning Machine Operator Relationship Specialty Start Date End Date Josh Ospina DO [address] [place] [address] PCP - General Family Medicine 03/19/22 documented as of this encounter
--- OUTSIDE RECORDS SUMMARY | 2024-10-31 07:29 | XMS_ITS | Encounter Summary ---
Author Organization [facility] Address [id number] [address] [place] [address] Care Team Providers Care Nuclear Fuel Enrichment Technician Name Role Phone Josh Ospina DO Primary Care Provider [phone] Reason for Visit * Reason Comments Med Refill Encounter Details Date Type Department Care Team (Late st Contact Info) Description 07/19/2022 Refill [facility] - Family Medicine [address] [place] [address] Josh Ospina DO [address], [facility] [place] [address] Diabetic polyneuropathy associated with type 2 diabetes mellitus ([facility]) (Primary Dx) Social History Tobacco Use Types Packs/Day Years Used Date Smoking Tobacco: Former Cigarettes 2 22.1 1 05/19/1973 - 05/09/1996 Smokeless Tobacco: Never Alcohol Use Standard Drinks/Week Comments Yes 0 (1 standard drink = 0.6 oz pur e alcohol) Occasional Social Connection and Isolat ion Panel [NHANES] Answer Date Recorded In a typical week, how many times do you talk on the phone with family, friends, or neighbors? More than three times a week 03/19/2022 How often do you get togethe r with friends or relatives? More than three times a week 03/19/2022 How often do you attend [facility] or bahai services? More than 4 times per year 03/19/2022 Do you belong to any clubs o r organizations such as confucianist groups, unions, fraternal or athletic groups, or [...] Answer Date Recorded Total Score 1 03/19/2022 [facility] of Occupat ional Health - Occupational Stress [...] Recorded Do you need help finding a [facility] and/or a training program? No [...] - Family Medicine [address] [place] [address] Josh Ospina DO [address], [facility] [place] [address] documented as of this encounter Visit Diagnoses Diagnosis Diabetic polyneuropathy associated with type 2 diabetes mellitus ([facility] Primary documented in this encounter Additional Health Concerns Assessment Noted Time PHQ-9 Depression Total Score: 1 03/19/20 22 10:20 AM EDT documented as of this encounter Care Teams Nuclear Fuel Enrichment Technician Relationship Specialty Start Date End Date Josh Ospina DO [address] [facility] [place] [address] PCP - General Family Medicine 03/19/22 documented as of this encounter
--- OUTSIDE RECORDS SUMMARY | 2024-10-31 07:29 | XMS_ITS | Clinical Summary ---
Author Organization [facility] Address [address] [place] [address] Care Team Providers Care Assistant Branch Operations Manager Name Role Phone Josh Ospina DO Primary Care Provider + [phone] Social History Tobacco Use Types Packs/Day Years Used Date Smoking Tobacco: Never Assessed Sex and Gender Information Value Date Recorded Sex Assigned at Not on file Legal Sex Male 12:59 PM EST Gender Identity Not on file Sexual Orientation Not on file Plan of Treatment Not on file Insurance [employer] Care Teams Assistant Branch Operations Manager Relationship Specialty Start Date End Date Josh Ospina DO PCP - General 06/30/17
--- OUTSIDE RECORDS SUMMARY | 2024-10-31 07:29 | XMS_ITS | Encounter Summary ---
Author Organization [facility] Address [address] [place] [address] Phone Care Team Providers Care Assistant Professor Of Life Sciences Name Role Phone Josh Ospina DO Primary Care Provider Encounter Details Date Type Department Care Team (Late st Contact Info) Description 08/10/2020 Orders Only [facility] [address] [place] [address] Conversion, Onbase Social History Tobacco Use Types [...] Description 12/27/2024 8:50 AM EDT Office Visit [facility] [address] [address] Jade Gale MD 703 [facility], [address] [place] [address] Scheduled Orders Name Type Priority Associated Diagnoses Orde r Schedule OUTSIDE LAB SCAN Lab Ordered: 08/10/2020 documented as of this encounter Visit Diagnoses Not on filedocumented in this encounter Care Teams Assistant Professor Of Life Sciences Relationship Specialty Start Date End Date Josh Ospina DO PCP - General 05/18/99 documented as of this encounter
--- OUTSIDE RECORDS SUMMARY | 2024-10-31 07:29 | XMS_ITS | Encounter Summary ---
Author Organization [facility] Address [address] [place] [address] Phone Care Team Providers Care Fish Fryer Name Role Phone Josh Ospina DO Primary Care Provider Encounter Details Date Type Department Care Team (Late st Contact Info) Description 05/24/2020 Orders Only [facility] [address] [place] [address] Conversion, Onbase Social History Tobacco Use Types [...] Visit [facility] [address] [address] Jade Gale MD 703 [facility] 2, [address] [place] [address] Scheduled Orders Name Type Priority Associated Diagnoses Orde r Schedule OUTSIDE LAB SCAN Lab Ordered: 05/24/2020 documented as of this encounter Visit Diagnoses Not on filedocumented in this encounter Care Teams Fish Fryer Relationship Specialty Start Date End Date Josh Ospina DO PCP - General 05/18/99 documented as of this encounter
--- OUTSIDE RECORDS SUMMARY | 2024-10-31 07:29 | XMS_ITS | Encounter Summary ---
Author Organization [facility] Address [id number] [address] [place] [address] Care Team Providers Care Fishing Instructor Name Role Phone Josh Ospina Primary Care Provider Encounter Details Date Type Department Care Team (Late st Contact Info) Description 04/04/2024 Orders Only [facility] - Family Medicine [address] [place] [address] Ref Prov, [place] [address] Social History Tobacco Use Types Packs/Day Years Used Date Smoking Tobacco: Former Cigarettes 2 22.1 1 05/19/1973 - 05/09/1996 Smokeless Tobacco: Never Alcohol Use Standard Drinks/Week Comments Yes 0 (1 standard drink = 0.6 oz pur e alcohol) Occasional C Utilities Answer Date Recorded In the past 12 months has [employer], gas, oil, or water [employer] threatened to shut off services in your [...] How often do you attend chur or quaker services? More than 4 times per year 03/19/2022 Do you belong to any clubs o r organizations such as hindu groups, unions, fraternal or athletic groups, or [...] Answer Date Recorded Total Score 0 06/25/2023 [facility] of Occupat ional Health - Occupational Stress [...] Recorded Do you need help finding a [facility] career center and/or a training program? [...] - Family Medicine [address] [place] [address] Josh Ospina DO [address] [facility] [place] [address] documented as of this encounter Procedures Procedure Name Priority Date/Time Associated Diagnosis Comments DIABETES EYE EXAM Routine 04/01/2024 3:15 PM EST documented in this encounter Results * DIABETES EYE EXAM (04/01/2024 3:15 PM EST) us Not In System Ref Prov HEALTH MAINTENANCE Final Result MANUALLY TRANSCRIBED RESULTS documented in this encounter Visit Diagnoses Not on filedocumented in this encounter Additional Health Concerns Assessment Noted Time PHQ-9 Depression Total Score: 0 06/25/19 24 9:56 AM EST documented as of this encounter Care Teams Fishing Instructor Relationship Specialty Start Date End Date Josh Ospina DO [address], [facility] [place] [address] PCP - General Family Medicine 03/19/22 documented as of this encounter
--- OUTSIDE RECORDS SUMMARY | 2024-10-31 07:29 | XMS_ITS | Encounter Summary ---
Author Organization [facility] Address [id number] [address] [place] [address] Care Team Providers Care Hospital Housekeeper Name Role Phone Josh Ospina Primary Care Provider [phone] Encounter Details Date Type Department Care Team (Late st Contact Info) Description 04/22/2024 Orders Only [facility] - Family Medicine [address] [facility] [place] [address] Bonnie Coyle CMA Type 2 diabetes mellitus with diabetic polyneuropathy, without long-term current use of insulin ([facility]) Social History Tobacco Use Types Packs/Day Years Used Date Smoking Tobacco: Former Cigarettes 2 22.1 1 05/19/1973 - 05/09/1996 Smokeless Tobacco: Never Alcohol Use Standard Drinks/Week Comments Yes 0 (1 standard drink = 0.6 oz pur e alcohol) Occasional [facility] Utilities Answer Date Recorded In the past 12 months has [employer], gas, oil, or water [employer] threatened to shut off services in your [...] How often do you attend chur or catholic services? More than 4 times per year [...] Answer Date Recorded Total Score 0 06/25/2023 [facility] of Occupat ional Health - Occupational [...] Recorded Do you need help finding a [facility] career center and/or a training [...] - Family Medicine [address] [place] [address] Josh Ospina DO [address], [facility] [address] documented as of this encounter Procedures Procedure Name Priority Date/Time Associated Diagnosis Comments HEMOGLOBIN A1C Routine 04/18/2024 Type 2 diabetes mellitus with diabetic polyneuropathy, without long-term current use of insulin ([facility]) documented in this encounter Results * Hemoglobin A1c (04/18/2024) External Hemoglobin A1C 6.7 % MANUALLY TRANSCRIBED RESULTS Blood 04/18/2024 us Josh Ospina DO LAB BLOOD ORDERABLES Final R esult MANUALLY TRANSCRIBED RESULTS documented in this encounter Visit Diagnoses Diagnosis Type 2 diabetes mellitus with diabetic polyneuropathy, without long-term current use of insulin ([facility]) documented in this encounter Additional Health Concerns Assessment Noted Time PHQ-9 Depression Total Score: 0 06/25/19 24 9:56 AM EST documented as of this encounter Care Teams Hospital Housekeeper Relationship Specialty Start Date End Date Josh Ospina DO [address], [facility] [address] PCP - General Family Medicine 03/19/22 documented as of this encounter
--- OUTSIDE RECORDS SUMMARY | 2024-10-31 07:29 | XMS_ITS | Encounter Summary ---
Author Organization [facility] Address [address] [place] [address] Phone Care Team Providers Care Twisting Machine Operator Name Role Phone Josh Ospina DO Primary Care Provider Encounter Details Date Type Department Care Team (Late st Contact Info) Description 10/21/2019 Orders Only [facility] [address] [place] [address] Conversion, Onbase Social History Tobacco Use Types [...] Description 12/27/2024 8:50 AM EDT Office Visit [facility] [address] [address] Jade Gale MD 703 [facility] [address], [address] [place] [address] Scheduled Orders Name Type Priority Associated Diagnoses Orde r Schedule OUTSIDE LAB SCAN Lab Ordered: 10/21/2019 documented as of this encounter Visit Diagnoses Not on filedocumented in this encounter Care Teams Twisting Machine Operator Relationship Specialty Start Date End Date Josh Ospina DO PCP - General 05/18/99 documented as of this encounter
--- OUTSIDE RECORDS SUMMARY | 2024-10-31 07:29 | XMS_ITS | Encounter Summary ---
Author Organization [facility] Address [id number] [address] [place] [address] Care Team Providers Care Supervisor Diagnostic Name Role Phone Josh Ospina DO Primary Care Provider [phone] Reason for Visit * Reason Comments Med Refill Encounter Details Date Type Department Care Team (Late st Contact Info) Description 04/28/2022 Refill [facility] - Family Medicine [address] [place] [address] Josh Ospina DO [address], [facility] [place] [address] Social History Tobacco Use Types Packs/Day Years [...] often do you attend chur ch or samaritan services? More than 4 times per year 03/19/2022 Do you belong to any clubs o r organizations such as orthodoxy groups, unions, fraternal or athletic groups, or [...] Answer Date Recorded Total Score 1 03/19/2022 [facility] of Occupat ional Health - Occupational [...] - Family Medicine [address] [place] [address] Josh Ospina DO [address] [facility] [place] [address] documented as of this encounter Visit Diagnoses Not on filedocumented in this encounter Additional Health Concerns Assessment Noted Time PHQ-9 Depression Total Score: 1 03/19/20 10:20 AM EDT documented as of this encounter Care Teams Supervisor Diagnostic Relationship Specialty Start Date End Date Josh Ospina DO [address] [facility] [place] [address] PCP - General Family Medicine 03/19/22 documented as of this encounter
--- OUTSIDE RECORDS SUMMARY | 2024-10-31 07:29 | XMS_ITS | Encounter Summary ---
Author Organization [facility] Address [address] [place] [address] Phone Care Team Providers Care Master Sonar Technician Name Role Phone Josh Ospina DO Primary Care Provider Encounter Details Date Type Department Care Team (Late st Contact Info) Description 01/10/2022 Orders Only [facility] [address] [place] [address] Conversion, Onbase Social History Tobacco Use Types [...] Description 12/27/2024 8:50 AM EDT Office Visit [facility] [address] [address] Jade Gale MD 703 [facility] 2, [address] [place] [address] Scheduled Orders Name Type Priority Associated Diagnoses Orde r Schedule OUTSIDE LAB SCAN Lab Ordered: 01/10/2022 documented as of this encounter Visit Diagnoses Not on filedocumented in this encounter Care Teams Master Sonar Technician Relationship Specialty Start Date End Date Josh Ospina DO PCP - General 05/18/99 documented as of this encounter
--- OUTSIDE RECORDS SUMMARY | 2024-10-31 07:29 | XMS_ITS | Encounter Summary ---
Author Organization [facility] Address [id number] [address] [place] [address] Care Team Providers Care Broadcast Maintenance Technician Name Role Phone Josh Ospina DO Primary Care Provider [phone] Encounter Details Date Type Department Care Team (Late st Contact Info) Description 02/02/2023 Orders Only [facility] - Family Medicine [address] [place] [address] Josh Ospina DO [address], [facility] [place] [address] Social History Tobacco Use Types Packs/Day Years [...] often do you attend chur ch or islam services? More than 4 times per year 03/19/2022 Do you belong to any clubs o r organizations such as scientology groups, unions, fraternal or athletic groups, or [...] 03/19/2022 PHQ-2 Answer Date Recorded Total Score 0 09/17/2022 [facility] Occupat ional [facility] - Occupational Stress Questionnaire Answer Date Recorded [...] got money to buy more. Never True 09/17/2022 Within the past 12 months th e food we bought just didn't last and we didn't have money to get more. Never True 09/17/2022 Purpose - Life Answer Date Recorded I [...] Medicine [address] [place] [address] Josh Ospina DO [address], [facility] [place] [address] documented as of this encounter Procedures Procedure Name Priority Date/Time Associated Diagnosis Comments US, RETROPERITNL ABD, LTD Routine 01/05/2023 12:25 PM EDT documented in this encounter Results * US, RETROPERITNL ABD, LTD (01/05/2023 12:25 PM EDT) us Scanning Provider External PROCEDURE/MINOR SURGI OSMANI ORDERABLES Final Result MANUALLY TRANSCRIBED RESULTS documented in this encounter Visit Diagnoses Not on filedocumented in this encounter Additional Health Concerns Assessment Noted Time PHQ-9 Depression Total Score: 0 09/18/19 23 9:59 AM EDT documented as of this encounter Care Teams Broadcast Maintenance Technician Relationship Specialty Start Date End Date Josh Ospina DO [address] [facility] [place] [address] PCP - General Family Medicine 03/19/22 documented as of this encounter
--- OUTSIDE RECORDS SUMMARY | 2024-10-31 07:29 | XMS_ITS | Clinical Summary ---
Author Organization [facility] Address [address] [place] [address] Phone Care Team Providers Care Configuration Consultant Name Role Phone Josh Ospina Primary Care Provider Allergies Active Allergy Reactions Criticality Noted Date Comments Ticagrelor Other 05/26/2023 Medications hydroxychloroquin e (Plaquenil) 200 mg tablet Take 1 tablet (200 mg) by mouth 2 times a day. 10/03/19 20 Active metFORMIN (Glucophage) 500 mg tablet Take 2 tablets (1,000 mg) by mouth 2 times a day. 03/13/20 20 Active SITagliptin phosphate (Januvia) 100 mg tablet Take 1 tablet (100 mg) by mouth once daily. 03/26/20 20 Active tamsulosin (Flomax) 0.4 mg 24 hr capsule Take 1 capsule (0.4 mg) by mouth once daily. 07/10/19 21 Active verapamil SR (Calan-SR) 240 mg ER tabletIndications :Essential hypertension take 1 tablet by mouth once daily 90 tablet 3 11/18/19 24 Active clopidogrel (Plavix) 75 mg tabletIndications :ASCVD (arteriosclerotic cardiovascular disease) Take 1 tablet (75 mg) by mouth once daily. 90 tablet 3 01/12/20 24 025 Active rosuvastatin (Crestor) 10 mg tabletIndications :Mixed hyperlipidemia Take 1 tablet (10 mg) by mouth once daily at bedtime. 90 tablet 3 01/19/20 24 Active Farxiga 10 mg Take 1 tablet (10 mg) by mouth once daily in the morning. Take before meals. Active meloxicam (Mobic) 7.5 mg tablet Take 1 tablet (7.5 mg) by mouth early in the morning.. 02/16/20 24 Active testosterone cypionate (Depo-Testosteron e) 200 mg/mL injection INJECT 300 mg (1.5 ml) INTRAMUSCULARLY EVERY FOUR weeks 12/28/19 24 Active sildenafil (Viagra) 100 mg tablet 1 tablet (100 mg) if needed. Active ramipril (Altace) 10 mg capsuleIndication s:Essential hypertension Take 1 capsule (10 mg) by mouth once daily. 90 capsule 3 08/16/19 25 Active Active Problems Problem Noted Date Diagnosed Date BMI 29.0-29.9,adult 03/22/2024 Former smoker 06/18/2023 ASCVD (arteriosclerotic cardiovascular disease) 05/26/2023 Diabetes mellitus (Multi) 05/26/2023 Essential hypertension 05/26/2023 Hyperlipidemia 05/26/2023 Peripheral vascular disease 05/26/2023 Sleep apnea 05/26/2023 Femoral bruit 05/26/2023 Encounters Date Type Department Care Team Description 08/15/2024 Refill [facility] [address] [facility] [address] [place] [address] Macy Mendes, YEN Essential hypertension from Last 3 Months Immunizations Immunization Administration Dates Next Due Flu vaccine (IIV4), preserva tive free *Check age/dose* 02/16/2020 Moderna SARS-CoV-2 Vaccination 07/18/2020 Pfizer Purple Cap SARS-CoV-2 02/18/2021,08/06/19 21,07/18/2020 Pneumococcal conjugate vacci ne, 13-valent (PREVNAR 13) 07/04/2014 Pneumococcal polysaccharide vaccine, 23-valent, age 2 years and older (PNEUMOVAX 23) 05/08/2020 Family History Medical History Relation Name Comments Colon cancer Brother Hypertension Brother cardiac disorder Brother Relation Name Status Comments Brother Social History Tobacco Use Types Packs/Day Years Used Date Smoking Tobacco: Former Cigarettes Smokeless Tobacco: Never Tobacco Cessation:Counseling Given: Not Answered Alcohol Use Standard Drinks/Week Comments Yes 14 (1 standard drink = 0.6 oz pu re alcohol) Sex and Gender Information Value Date Recorded Sex Assigned at Not on file Legal Sex Male 1:11 PM EST Gender Identity Not on file Sexual Orientation Not on file Last Filed Vital Signs Vital Sign Reading Time Taken Comments Blood Pressure 100/50 03/22/2024 8:42 AM EST Pulse 64 03/22/2024 8:42 AM EST Temperature - - Respiratory Rate - - Oxygen Saturation - - Inhaled Oxygen Concentration - - Weight 103 kg (227 lb) 03/22/2024 8:42 AM EST Height 185.4 cm (6' 1 ) 03/22/2024 8:42 AM EST Body Mass Index 29.95 03/22/2024 8:42 AM EST Plan of Treatment Upcoming Encounters Date Type Department Care Team (Late st Contact Info) Description 12/27/2024 8:50 AM EDT Office Visit [facility] [address] [facility] [address] [place] [address] Pattie Gale MD [address] [facility] [address] [place] [address] Health Maintenance Due Date Last Done Comments CT Colonography 1955 Diabetes: Hemoglobin A1C 1955 FIT-DNA (Cologuard) 1955 FIT 1955 Lipid Panel 1955 Medicare Annual Wellness Visit (AWV) 1955 Sigmoidoscopy 1955 Hepatitis C Screening 10/19/1973 RSV High Risk: (Elderly (60+) or Population) (1 - Risk 60-74 years 1-dose series) 2015 COVID-19 Vaccine ( season) 2024 02/18/2021, 08/08/2020, 08/05/2020, Additional history exists Colonoscopy 04/07/2024 04/07/2014 Colorectal Cancer Screening 04/07/2024 Diabetes: Urine Protein Screening 05/04/2024 05/04/2023 Diabetes: Retinopathy Screening 05/13/2024 05/13/2022 DTaP/Tdap/Td Vaccines (2 - Td or Tdap) 07/04/2024 07/04/2014 Irritable Bowel Syndrome Discontinued 04/07/2014 Zoster Vaccines Completed 06/29/2019, 04/28/2019 Pneumococcal Vaccine Completed 04/14/2022, 05/08/2020, 07/04/2014 Abdominal Aortic Aneurysm (AAA) Screening Completed 01/05/2023 Influenza Vaccine Completed 03/16/2024, , 02/16/2020, Additional history exists HIB Vaccines Aged Out No longer eligi ble based on patient's age to complete this topic HPV Vaccines Aged Out No longer eligi ble based on patient's age to complete this topic Hepatitis A Vaccines Aged Out No long er eligible based on patient's age to complete this topic Hepatitis B Vaccines Aged Out No long er eligible based on patient's age to complete this topic IPV Vaccines Aged Out No longer eligi ble based on patient's age to complete this topic Meningococcal Vaccine Aged Out No jerrell mariama eligible based on patient's age to complete this topic Rotavirus Vaccines Aged Out No longer eligible based on patient's age to complete this topic Procedures Procedure Name Priority Date/Time Associated Diagnosis Comments ABDOMINAL AORTA/ILIAC/IVC ULTRA 01/05/2023 7:58 AM EDT COLONOSCOPY 04/07/2014 from Last 3 Months or Most Recently Relevant to Health Maintenance Results * Abdominal Aorta/Iliac/IVC Ultra (01/05/2023 7:58 AM EDT) Anatomical Region Laterality Modality Ultrasound 01/05/2023 7:58 AM EDT Narrative 01/06/2023 5:29 PM EDT [address], [address] [place] [address] Vascular Lab Report Abdominal Aorta Iliac Ultrasound/IVC Ultrasound Patient Name: MIKE Flor Physician: [id number] Pattie Gale MD, [facility] Study Date: 01/05/2023 Referring PATTIE GALE Physician: MRN/PID: [id number] PCP: Josh Ospina MD Accession/Order#: [id number] CC Report to: Date of : 1955 Technologist: Deidre Jimenez RD, T Gender: M Technologist 2: Admission Status: Outpatient Location Performed: [facility] Diagnosis/ICD: J50-Rlyekrmyl primary hypertension; R09.89-Bruit; I73.9-Peripheral vascular disease, unspecified Indication: ASCVD, Former Smoker, 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 Imaging & Doppler Findings: AORTA AP Lateral PSV Proximal 1.49 cm 1.36 cm 101.0 cm/s Mid 1.55 cm 1.43 cm 97.0 cm/s Distal 1.57 cm 1.51 cm 72.0 cm/s RIGHT AP Lateral PSV FRANCISCO Proximal 1.08 cm 0.81 cm 147.00 cm/s LEFT AP Lateral PSV FRANCISCO Proximal 0.83 cm 0.96 cm 94.00 cm/s [id number] Pattie Gale MD, FACC Final Procedure Note Pattie Gale MD - 01/06/[address], [address] [place] [address] Vascular Lab Report Abdominal Aorta Iliac Ultrasound/IVC Ultrasound Patient Name: MIKE MUÑIZ Reading Physician: [id number] Pattie Lee, FACC Study Date: 01/05/2023 Referring PATTIE GALE Physician: MRN/PID: [id number] PCP: Josh Ospina MD Accession/Order#: [id number] CC Report to: Date of : 1955 Technologist: Deidre Jimenez RDCSОлег Gender: M Technologist 2: Admission Status: Outpatient Location Performed: [facility] Diagnosis/ICD: F40-Gcktoqejd primary hypertension; R09.89-Bruit; I73.9-Peripheral vascular disease, unspecified Indication: ASCVD, Former Smoker, 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 Imaging & Doppler Findings: AORTA AP Lateral PSV Proximal 1.49 cm 1.36 cm 101.0 cm/s Mid 1.55 cm 1.43 cm 97.0 cm/s Distal 1.57 cm 1.51 cm 72.0 cm/s RIGHT AP Lateral PSV FRANCISCO Proximal 1.08 cm 0.81 cm 147.00 cm/s LEFT AP Lateral PSV FRANCISCO Proximal 0.83 cm 0.96 cm 94.00 cm/s [id number] Pattie Gale MD, FACC at5:29:20 PM Final Pattie Gale MD CV VASCULAR PROCEDURES Final Result * COLONOSCOPY (04/07/2014) Anatomical Region Laterality Modality Endoscopy Narrative 04/07/2014 Ordered by an unspecified provider. us Onbase Conversion ENDOSCOPY PROCEDURE ORDERABLES Final Result from Last 3 Months or Most Recently Relevant to Health Maintenance Insurance [address] [place] [address] MEDICARE PART A AND B [facility] MEDICARE SUPPLEMENT MEDICARE PART A AND B [facility] MEDICARE SUPPLEMENT Care Teams Configuration Consultant Relationship Specialty Start Date End Date Josh Ospina DO PCP - General 05/18/99
--- OUTSIDE RECORDS SUMMARY | 2024-10-31 07:29 | XMS_ITS | Encounter Summary ---
Author Organization [facility] Address [facility]-[id number] [address] [place] [address] Care Team Providers Care Stock Associate Name Role Phone Josh Ospina DO Primary Care Provider [phone] Reason for Visit * Reason Comments Med Refill Encounter Details Date Type Department Care Team (Late st Contact Info) Description 10/28/2022 Refill [facility] - Family Medicine [address] [place] [address] Josh Ospina DO [address], [facility] [address] Diabetic polyneuropathy associated with type 2 diabetes mellitus ([facility]) Social History Tobacco Use Types Packs/Day Years [...] often do you attend chur ch or yazdanism services? More than 4 times per year 03/19/2022 Do you belong to any clubs o r organizations such as mormonism groups, unions, fraternal or athletic groups, or [...] Answer Date Recorded Total Score 0 09/17/2022 [facility] of Occupat ional Health - [...] Recorded Do you need help finding a [facility] and/or a training program? [...] Medicine - Family Medicine [address] [place] [address] Josh Ospina DO [address] [address] documented as of this encounter Visit Diagnoses Diagnosis Diabetic polyneuropathy associated with type 2 diabetes mellitus ([facility]) documented in this encounter Additional Health Concerns Assessment Noted Time PHQ-9 Depression Total Score: 0 09/18/19 23 9:59 AM EDT documented as of this encounter Care Teams Stock Associate Relationship Specialty Start Date End Date Josh Ospina DO [address] [address] PCP - General Family Medicine 03/19/22 documented as of this encounter
--- OUTSIDE RECORDS SUMMARY | 2024-10-31 07:29 | XMS_ITS | Encounter Summary ---
Author Organization [facility] Address [id number] [address] [place] [address] Care Team Providers Care Poker Room Manager Name Role Phone LaraJosh alvarado Primary Care Provider [phone]- [phone] Encounter Details Date Type Department Care Team (Late st Contact Info) Description 09/17/2022 Orders Only [facility] Internal [facility] - Family Medicine [address] [place] [address] External, Scanning Provider Social History Tobacco Use Types Packs/Day [...] often do you attend chur ch or protestant services? More than 4 times per year 03/19/2022 Do you belong to any clubs o r organizations such as rastafari groups, unions, fraternal or athletic groups, or [...] Answer Date Recorded Total Score 0 09/17/2022 [facility] Questionnaire Answer Date [...] Recorded Do you need help finding a [facility] career [facility] and/or a training [...] Medicine - Family Medicine [address] [place] [address] Josh Ospina DO [address], [place] [address] documented as of this encounter Procedures Procedure Name Priority Date/Time Associated Diagnosis Comments COLONOSCOPY Routine 04/08/2019 HEPATITIS C(HCV) ANTIBODY W/ REFLEX TO PCR Routine 12/11/2015 documented in this encounter Results * COLONOSCOPY (04/08/2019) us Scanning Provider External HEALTH MAINTENANCE Fi nal Result MANUALLY TRANSCRIBED RESULTS * Hepatitis C(HCV) Ab w/ Reflex to PCR (12/11/2015) us Josh Ospina DO LAB BLOOD ORDERABLES Final R esult MANUALLY TRANSCRIBED LAB RESULTS documented in this encounter Visit Diagnoses Not on filedocumented in this encounter Additional Health Concerns Assessment Noted Time PHQ-9 Depression Total Score: 0 09/18/19 23 9:59 AM EDT documented as of this encounter Care Teams Poker Room Manager Relationship Specialty Start Date End Date Josh Ospina DO [address], [facility] [place] [address] PCP - General Family Medicine 03/19/22 documented as of this encounter
--- OUTSIDE RECORDS SUMMARY | 2024-10-31 07:29 | XMS_ITS | Encounter Summary ---
Author Organization [employer] [facility] tem Address [id number] [address] [place] [address] Care Team Providers Care Sewer Line Photo Inspector Name Role Phone Josh Ospina DO Primary Care Provider [phone] Reason for Visit * Reason Comments Med Refill Encounter Details Date Type Department Care Team (Late Contact Info) Description 01/23/2022 Refill [facility] - Family Medicine [address] [place] [address] Josh Ospina DO [address] [facility] [place] [address] Social History Tobacco Use Types Packs/Day Years Used Date Smoking Tobacco: Never Assessed Childcare Answer Date Recorded Childcare Unknown 10/27/2018 Employment Answer Date Recorded Employment Unknown 10/27/2018 Purpose - Life Answer Date Recorded Purpose and direction in life Unknown Sex and Gender Information Value Date Recorded Sex Assigned at Not on file Legal Sex Male 11:56 AM EDT Gender Identity Not on file Sexual Orientation Not on file documented as of this encounter Plan of Treatment Upcoming Encounters Date Type Department Care Team (Late Contact Info) Description 10/31/2024 9:00 AM EDT Office Visit [facility] - Family Medicine [address] [place] [address] Josh Ospina DO [address] [place] [address] documented as of this encounter Visit Diagnoses Not on filedocumented in this encounter Care Teams Sewer Line Photo Inspector Relationship Specialty Start Date End Date Josh Ospina DO [address], [place] [address] PCP - General Family Medicine 03/19/22 documented as of this encounter
--- OUTSIDE RECORDS SUMMARY | 2024-10-31 07:29 | XMS_ITS | Encounter Summary ---
Author Organization [facility] Address [address] [place] [address] Phone Care Team Providers Care Train Conductor Name Role Phone Josh Ospina DO Primary Care Provider Encounter Details Date Type Department Care Team (Late st Contact Info) Description 04/18/2024 Scanned Document [facility] [address] [place] [address] Scanning, Generic Provider Social History Tobacco Use Types Packs/Day Years Used Date Smoking Tobacco: Former Cigarettes Smokeless Tobacco: Never Alcohol Use Standard Drinks/Week Comments Yes 14 (1 standard drink = 0.6 oz pu re alcohol) Sex and Gender Information Value Date Recorded Sex Assigned at Not on file Legal Sex Male 1:11 PM EST Gender Identity Not on file Sexual Orientation Not on file COVID-19 Exposure Response Date Recorded In the last 10 days, have yo u been in contact with someone who was confirmed or suspected to have Coronavirus/COVID-19? No / Unsure 03/22/2024 8:32 AM EST documented as of this encounter Plan of Treatment Upcoming Encounters Date Type Department Care Team (Late st Contact Info) Description 12/27/2024 8:50 AM EDT Office Visit [facility] [address] [facility] [address] [place] [address] Jade Gale MD [address] [facility] [address] [place] [address] documented as of this encounter Procedures Procedure Name Priority Date/Time Associated Diagnosis Comments OUTSIDE LAB SCAN 04/18/2024 OUTSIDE LAB SCAN 04/18/2024 documented in this encounter Results * OUTSIDE LAB SCAN (04/18/2024) Narrative 04/18/2024 Ordered by an unspecified provider. us Generic Provider Scanning OUTSIDE SCAN Final Result * OUTSIDE LAB SCAN (04/18/2024) Narrative 04/18/2024 Ordered by an unspecified provider. us Generic Provider Scanning OUTSIDE SCAN Final Result documented in this encounter Visit Diagnoses Not on filedocumented in this encounter Additional Health Concerns Assessment Noted Time A fall risk assessment has been complete d for the patient 03/22/2024 8:42 AM EST documented as of this encounter Care Teams Train Conductor Relationship Specialty Start Date End Date Josh Ospina DO PCP - General 05/18/99 documented as of this encounter
--- OUTSIDE RECORDS SUMMARY | 2024-10-31 07:29 | XMS_ITS | Encounter Summary ---
Author Organization [facility] Address [id number] [address] [place] [address] Care Team Providers Care Conservation Coordinator Name Role Phone LaraJosh alvarado Primary Care Provider Encounter Details Date Type Department Care Team (Late st Contact Info) Description 06/25/2023 [facility]phone [facility] [address] [place] [address] Angelique, Belkys, ROLL TENDER Social History Tobacco Use Types Packs/Day Years Used Date Smoking Tobacco: Former Cigarettes 2 22.1 1 05/19/1973 - 05/09/1996 Smokeless Tobacco: Never Alcohol Use Standard Drinks/Week Comments Yes 0 (1 standard drink = 0.6 oz pur e alcohol) Occasional C Utilities Answer Date Recorded In the past 12 months has [employer], gas, oil, or water company threatened to [...] How often do you attend chur or adventist services? More than 4 times per year 03/19/2022 Do you belong to any clubs o r organizations such as jew groups, unions, fraternal or athletic groups, or [...] Answer Date Recorded Total Score 0 06/25/2023 [facility] of Occupat ional Health - Occupational Stress [...] Recorded Do you need help finding a [facility] career [facility] and/or a training [...] on file documented as of this encounter Miscellaneous Notes * Telephone Encounter - Belkys Merino CMA - 06/25/2023 1:22 PM EST Pt called said he called insurance and the farxiga is covered if you would send that over and take off the Invok[employer] documented in this encounter Plan of Treatment Upcoming Encounters Date Type Department Care Team (Late st Contact Info) Description 10/31/2024 9:00 AM EDT Office Visit [facility] - Family Medicine [address] [place] [address] Josh Ospina DO [address] [facility] [place] [address] documented as of this encounter Visit Diagnoses Not on filedocumented in this encounter Additional Health Concerns Assessment Noted Time PHQ-9 Depression Total Score: 0 06/25/19 24 9:56 AM EST documented as of this encounter Care Teams Conservation Coordinator Relationship Specialty Start Date End Date Josh Ospina DO [address] [facility] [place] [address] PCP - General Family Medicine 03/19/22 documented as of this encounter
--- OUTSIDE RECORDS SUMMARY | 2024-10-31 07:29 | XMS_ITS | Encounter Summary ---
Author Organization [facility] Address [id number] [address] [place] [address] Care Team Providers Care Antisubmarine Weapons Officer Name Role Phone Josh Ospina DO Primary Care Provider Encounter Details Date Type Department Care Team (Late st Contact Info) Description 06/26/2023 Orders Only [facility] - Family Medicine [address] [place] [address] Josh Ospina DO [address], [place] [address] Social History Tobacco Use Types Packs/Day Years Used Date Smoking Tobacco: Former Cigarettes 2 22.1 1 05/19/1973 - 05/09/1996 Smokeless Tobacco: Never Alcohol Use Standard Drinks/Week Comments Yes 0 (1 standard drink = 0.6 oz pur e alcohol) Occasional C Utilities Answer Date Recorded In the past 12 months has [employer], gas, oil, or water [employer] threatened to shut off services in your [...] week 03/19/2022 How often do you attend [facility] or confucianism services? More than 4 times per year 03/19/2022 Do you belong to any clubs o r organizations such as baptist groups, unions, fraternal or athletic groups, or [...] Answer Date Recorded Total Score 0 06/25/2023 [facility] of Occupat ional Health - Occupational Stress [...] Recorded Do you need help finding a [facility] career center and/or a training program? [...] Medicine - Family Medicine [address] [place] [address] Josh Ospina DO [address] [place] [address] documented as of this encounter Visit Diagnoses Not on filedocumented in this encounter Additional Health Concerns Assessment Noted Time PHQ-9 Depression Total Score: 0 06/25/19 24 9:56 AM EST documented as of this encounter Care Teams Antisubmarine Weapons Officer Relationship Specialty Start Date End Date Josh Ospina DO [address] [facility] [place] [address] PCP - General Family Medicine 03/19/22 documented as of this encounter
--- OUTSIDE RECORDS SUMMARY | 2024-10-31 07:29 | XMS_ITS | Encounter Summary ---
Author Organization [facility] Address [facility]-[id number] [address] [place] [address] Care Team Providers Care Machinist Helper Marine Name Role Phone LaraJosh alvarado Primary Care Provider [phone]- [phone] Encounter Details Date Type Department Care Team (Late st Contact Info) Description 05/13/2022 Orders Only [facility] - Family Medicine [address] [place] [address] External, Scanning Provider Social History Tobacco Use [...] often do you attend chur ch or gnosticist services? More than 4 times per year 03/19/2022 Do you belong to any clubs o r organizations such as adventism groups, unions, fraternal or athletic groups, or [...] Answer Date Recorded Total Score 1 03/19/2022 [facility] of Occupat ional Health - [...] Medicine - Family Medicine [address] [place] [address] Josh Ospina DO [address] [place] [address] documented as of this encounter Procedures Procedure Name Priority Date/Time Associated Diagnosis Comments DIABETES EYE EXAM Routine 05/13/2022 documented in this encounter Results * DIABETES EYE EXAM (05/13/2022) us Scanning Provider External HEALTH MAINTENANCE Fi nal Result MANUALLY TRANSCRIBED RESULTS documented in this encounter Visit Diagnoses Not on filedocumented in this encounter Additional Health Concerns Assessment Noted Time PHQ-9 Depression Total Score: 1 03/19/20 10:20 AM EDT documented as of this encounter Care Teams Machinist Helper Marine Relationship Specialty Start Date End Date Josh Ospina DO [address] [place] [address] PCP - General Family Medicine 03/19/22 documented as of this encounter
--- OUTSIDE RECORDS SUMMARY | 2024-10-31 07:29 | XMS_ITS | Encounter Summary ---
Author Organization [facility] Address [id number] [place] [address] Care Team Providers Care Porter Baggage Name Role Phone Josh Ospina Primary Care Provider [phone] Encounter Details Date Type Department Care Team (Late st Contact Info) Description 12/18/2023 Orders Only [facility] Internal Medicine - Family Medicine [address] [place] [address] Ref Prov, [place] [address] Social History Tobacco Use Types Packs/Day Years Used Date Smoking Tobacco: Former Cigarettes 2 22.1 1 05/19/1973 - 05/09/1996 Smokeless Tobacco: Never Alcohol Use Standard Drinks/Week Comments Yes 0 (1 standard drink = 0.6 oz pur e alcohol) Occasional C Utilities Answer Date Recorded In the past 12 months has [employer], gas, oil, or water [email or web address] threatened to shut off services in your [...] How often do you attend chur or worship services? More than 4 times per year 03/19/2022 Do you belong to any clubs o r organizations such as mandaeism groups, unions, fraternal or athletic groups, or [...] Answer Date Recorded Total Score 0 06/25/2023 [facility] - [...] Recorded Do you need help finding a [facility] career center and/or a training program? No [...] - Family Medicine [address] [place] [address] Josh Ospina DO [address] [place] [address] documented as of this encounter Procedures Procedure Name Priority Date/Time Associated Diagnosis Comments TESTOSTERONE, TOTAL/FREE/BIOAVAILABLE Routine 12/17/2023 11:41 AM EDT documented in this encounter Results * Testosterone, total/free/bioavailable (12/17/2023 11:41 AM EDT) us Not In System Ref Prov LAB BLOOD ORDERABLES Viji l Result MANUALLY TRANSCRIBED RESULTS documented in this encounter Visit Diagnoses Not on filedocumented in this encounter Additional Health Concerns Assessment Noted Time PHQ-9 Depression Total Score: 0 06/25/19 24 9:56 AM EST documented as of this encounter Care Teams Porter Baggage Relationship Specialty Start Date End Date Josh Ospina DO [address] [place] [address] PCP - General Family Medicine 03/19/22 documented as of this encounter
--- OUTSIDE RECORDS SUMMARY | 2024-10-31 07:29 | XMS_ITS | Encounter Summary ---
Author Organization [facility] Address [id number] [place] [address] Care Team Providers Care Sheet Rock Hanger Name Role Phone LaraJosh alvarado Primary Care Provider [phone] Encounter Details Date Type Department Care Team (Late st Contact Info) Description 06/30/2023 Orders Only [facility] Internal Medicine - Family Medicine [address] [place] [address] External, Scanning Provider Social History Tobacco Use Types Packs/Day Years Used Date Smoking Tobacco: Former Cigarettes 2 22.1 1 05/19/1973 - 05/09/1996 Smokeless Tobacco: Never Alcohol Use Standard Drinks/Week Comments Yes 0 (1 standard drink = 0.6 oz pur e alcohol) Occasional [facility] Utilities Answer Date Recorded In the past 12 months has [employer] electric, gas, oil, or water company threatened to [...] often do you attend chur ch or bahai services? More than 4 times [...] Answer Date Recorded Total Score 0 06/25/2023 [facility] Answer Date [...] Recorded Do you need help finding a [facility] career center and/or a training program? [...] Medicine - Family Medicine [address] [place] [address] Josh Ospina DO [address] [place] [address] documented as of this encounter Procedures Procedure Name Priority Date/Time Associated Diagnosis Comments MULTIPLE LABS Routine 06/19/2023 10:39 AM EST documented in this encounter Results * Multiple labs (06/19/2023 10:39 AM EST) us Scanning Provider External [facility] Final Result MANUALLY TRANSCRIBED RESULTS documented in this encounter Visit Diagnoses Not on filedocumented in this encounter Additional Health Concerns Assessment Noted Time PHQ-9 Depression Total Score: 0 06/25/19 24 9:56 AM EST documented as of this encounter Care Teams Sheet Rock Hanger Relationship Specialty Start Date End Date Josh Ospina DO [address] [place] [address] PCP - General Family Medicine 03/19/22 documented as of this encounter
--- OUTSIDE RECORDS SUMMARY | 2024-10-31 07:29 | XMS_ITS | CCD ---
Author Organization [facility] CliniSynj Care Team Providers Care Director Employment Name Role Phone HYUNEILEEN TENNILLE Unavailable Unavai labOJSH Duong Unavailable Unavailable Laralogregg, Josh Sanchez Unavailable Unavailable Unavailable Unavailable Unavailable Baljinder, Dr. Jade Sanz Attending Shantel vailable Josh Ospina Primary Care Unavailab clau Gale, Dr. Jade Sanz Referring Shantel vailable [place] Josh Willy Primary Care Unavailab clau Gale, Dr. Jade Sanz Referring Shantel vailable Gale, Dr. Jade Sanz Attending Shantel vailable Aryan Garcia Unavailable DO Josh Ospina Primary Care Provider MD Aryan Garcai Attending Provider DR SHADY MOHAN Attending Unavailable [...] ilable Furlong Josh GONGORA Primary Care Provider Furlong Josh GONGORA Primary Care Provider JADE GALE Attending Unavailable FURLONG, JOSH AGUILERA Primary Care Unavailab le GALEJADE MONREAL Attending Unavailable JADE GALE Referring Unavailable FURLONG, JOSH AGUILERA Primary Care [...] MOHAN Attending Unavailable Josseline Kerr Attending Unavailable Shday MOHAN Admitting Unavailable Shady MOHAN Attending Unavailable Shady MOHAN Attending Unavailable FURLONGJOSH Referring Unavailable FURLONG, JOSH Sanchez Primary Care Unavailable Shanique Chiang Attending Unavailable Shanique Chiang Admitting Unavailable Furlong, Josh Primary Care Unavailable Furlong Josh GONGORA Primary Care Provider [phone] Shanique Chiang MD Attending Provider [phone] Furlong Josh GONGORA Primary Care Provider [phone] MOHAN, Shady R Attending Unavailable MOHAN, Shady [...] Ticagrelor; Translations: [Brilinta TABS] Drug Allergy 2 [facility] (3 sources) Ticagrelor; Translations: [TICAGRELOR] Drug Allergy 2 [place] [address] Repository (2 sources) Bee/Wasp/Ant venom; Translations: [Bee Stings] Propensity to adverse reactions (disorder) [facility] Repository (2 sources) No Known Medication Allergies; Translations: [No Known Medication Allergies] Propensity to adverse reactions (disorder) [facility] Repository Medications Current Medications Medication Drug [...] for Erectile Dysfunction April 08, 2019 12:00am Cialis Not-Eli g tamsulosin hydrochloride 0.4 mg oral capsule [...] polyneuropathy, without long-term current use of insulin ([facility]) Take 1 tablet (300 mg total) by [...] 05-02-2024 05-04-2023 Other aftercare (1 source) Other fdc (current) drug therapy; Translations: [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] Onset: 07-16-2021 Episodic Other [...] Interpretation Reference Range Facility Ambulatory Visit Summaryon 0 10-17-2024 Ambulatory Visit Summary Ambulatory Visit Summary MIKE FLORENTINO :1955 Visit Date:10/17/2024 Ambulatory Visit Instructions Your Care Team Attending Physician - Shady MOHAN MD Primary Care Physician - JOSH OSPINA DO This Is Your Medications List clopidogrel (clopidogrel 75 mg Tab) dapagliflozin (Farxiga 10 mg oral tablet) dutasteride (dutasteride 0.5 mg Cap) empagliflozin (Jardiance 10 mg oral tablet) gabapentin [...] to do next Scheduled Follow-Up Appointments Thursday 9:15 AM EDT With: Shady MOHAN MD Where: [facility] [place] [id number]- Medications What How Much When Why Instructions Unchanged clopidogrel (clopidogrel 75 mg Tab) 1 Tablets By Mouth Every day Unchanged dapagliflozin (Farxiga 10 mg oral tablet) See instructions Unchanged dutasteride (dutasteride 0.5 mg Cap) 1 Capsules By Mouth Every day BPH with urinary obstruction Unchanged empagliflozin (Jardiance 10 mg oral tablet) [...] (testosterone cypionate 200 mg/ mL IM Mavis) 400 Milligram Intramuscular Every 4 weeks Unchanged verapamil [...] for choosing us for your care. Normal [facility] Urology Office/Clinic Noteon 07-18-2024 Urology Office/Clinic Note [...] [facility] [address], [place] [phone] Additional Instructions: 4 mos w/ testosterone and [...] 1 tab(s) Caio (more content not included)... [facility] Comment on above: Result Comment: Elec tronically Signed By: Shady MOHAN MD\.br\Date and Time Signed: 07/18/24 16:11 EST\.br\Electronically Co-Signed By: Val Alston\.br\Date and Time Co-Signed: 07/18/24 16:10 EST Ambulatory Visit Summaryon 0 05-30-2024 Ambulatory Visit Summary Ambulatory Visit Summary JUAN JOSÉ FLORETNINOFroilan Land :1955 Visit Date:05/30/2024 Ambulatory Visit Instructions [...] AM EST With: Where: [facility] [address] [address]- Thursday 8:15 AM EDT With: JAMSHID VILLAVICENCIO, Shady Rizo Where: [facility] [address] [address]- Medications What How Much When Instructions Unchanged [...] for choosing us for your care. Normal [facility] Glucose Glucometer (BldC) [M ass/Vol]Ordered By: Shanique Chiang on 05-04-2024 Glucose [Mass/Vol] Capillary blood glucose measurement by glucometer (mass/volume) [facility] Comment on above: Random Glucose Refer ence Range is dependent on time and content of last meal. Glucose of more than 200 mg/dL in a nonstressed, ambulatory subject supports the diagnosis of Diabetes Mellitus. Glucose Poct Glucometerson 1 07-05-2023 Commemt1 Glu2: Cleaned Meter Normal [facility] Comment on above: Result Comment: PERF ORMED BY: [facility] [address] [place] [address] PATHOLOGIST NUCLEAR MEDICINE CHIEF TECHNOLOGIST VENECIA SANTO M.D. Performed By: #### G LULS #### Point of Care testing , Glucose [Mass/Vol] 134 mg/dL Normal [facility] Comment on above: Result Comment: [place] Glucose Reference Range is dependent on time and content of last meal. Glucose of more than 200 mg/dL in a nonstressed, ambulatory subject supports the diagnosis of Diabetes Mellitus. Performed By: #### G LULS #### Point of Care testing , No Panel InformationOrdered By: Shanique Chiang on 05-04-2024 Miscellaneous Pathology Test See comment [facility] Comment on above: See report. Scanned copy available in EMR. Bedside Glucose Comment Glu2: cleaned meter [facility] Pathology Request for Lab Co rpon 05-04-2024 Pathology Request for Lab [place] Normal [facility] Comment on above: Order Comment: PATHO LOGY GI SPECIMEN Result Comment: See report. Scanned copy available in EMR. PERFORMED BY: [facility] [address] [place] [address] PATHOLOGIST NUCLEAR MEDICINE CHIEF TECHNOLOGIST VENECIA SANTO M.D. Performed By: #### P ATH TO [facility] #### [facility] [address] [place] [id number] [facility] Lipid profileon 05-02-2024 External Cholesterol 135 [facility] External Hdl Cholesterol 59 [facility] External Ldl (Calc) 61 [facility] External Triglycerides 35 [facility] MICROALBUMIN - ALBUMIN:CREAT ININE URINE RATIOon 05-02-2024 ALB/CREAT RATIO NOT CALCULATED Normal 0.0-30.0 [facility] Comment on above: Result Comment: Result for Albumin/Creatinine Ratio cannot be reliably calculated because urine albumin and or urine creatinine is below the detection limit of the assay. Performed By: #### M ALBU #### [facility] ([id number]) [address] [facility], [address] [place] [address] Albumin DL <= 20 mg/L (U) [Mass/Vol] mg/dL Normal 0.0-1.9 [facility] Comment on above: Performed By: #### M ALBU #### [facility] ([id number]) [address] [facility] [address] [address], [address] [place] [address] URINE CREAT 24.53 mg/dL Normal [facility] Comment on above: Performed By: #### M ALBU #### [facility] ([id number]) [address] [facility] [facility], [address] [place] [address] Urology Office/Clinic Noteon 05-02-2024 Urology Office/Clinic Note Urology Office/Clinic Note Chief Complaint f/u testosterone level HPI Staff 68yr old male pt here for 4mo f/u testosterone level check. Labs drawn at [facility] last week. Wants to discuss Flomax medication, and possibly switching due to side effects. Previous Dx: hypogonadism male, BPH with urinary obstruction, impotence *testosterone injection 300mg q4wks, tamsulosin 0.4mg bid, sildenafil 100mg PRN T Level: 10/28/22 - 06/19/23 - 329 & 7.9 free 12/17/23 - Dysuria: denies Incomplete bladder emptying: denies Hematuria: [...] hypofunction) Testosterone (ref range 264-916): 04/26/22 - 10/28/22 - 06/19/23 - 329 & 7.9 free 12/17/23 - 04/04/24 - last inj 04/18/24 - HGB 12.5 L Stopped Androgel and started Testosterone IM 300 mg q4ks at prior OV. Waking occasionally with morning erections. Had labs drawn last wk at [facility], did not run. Cannot adjust dose since no recent level. Pt is due for his injection today. Will have pt receive inj today at same dosage and then get T level in the AM tomorrow. Follow up 6 mos with T level or sooner if needed. Pt understands and agrees with plan. -Receive injection today. -Get T level drawn tomorrow at [facility] (recalled). May adjust dose over the [...] [facility] [address], [place] [address]- Additional Instructions: 6 mos with T level [...] Januvia 100 (more content not included)... Normal [facility] Comment on above: Result Comment: Elec [...] VILLAVICENCIO, Shady Rizo Where: [facility] [address] [place] [id number]- Medications What How Much When Instructions Unchanged [...] for choosing us for your care. Normal [facility] Ambulatory Visit Summaryon 0 01-12-2024 Ambulatory [...] AM EDT With: Where: [facility] [address] [address]- Thursday 8:45 AM EST With: Shady MOHAN MD Where: [facility] [address] [address]- Medications What How Much When Instructions Unchanged [...] you for choosing us for your care. [facility] Ambulatory Visit Summaryon 0 12-28-2023 Ambulatory Visit Summary Ambulatory Visit Summary MISHEL MIKE C :1955 Visit Date:12/28/2023 Ambulatory Visit Instructions Your [...] AM EDT With: Where: [facility] [place] [address] [place] [address]- Thursday 8:45 AM EST With: Shady MOHAN MD Where: [facility] [place] [address] [place] [address]- You Need to Schedule the Following Appointments Follow Up with Shady MOHAN MD, URL When: Where: [facility] [address] [place] [address], [place] [address]- Medications What How Much When Instructions Changed sildenafil (sildenafil 100 mg Tab) 1 Tablets By Mouth As Directed as needed for Other (see comment) Take 1 hour prior to sexual activity. Do not exceed more than 100 mg (1 tab) within 24 hours. Pickup at [facility] Changed testosterone (testosterone cypionate 200 mg/ mL IM Mavis) 300 Milligram Intramuscular Every 4 weeks Pickup at [facility] Unchanged clopidogrel (clopidogrel 75 mg Tab) [...] physician if questions or concerns Pharmacy Information [facility]: [address] [place], [place] [phone] What How Much When Comments Stop Taking [...] characteristics duri (more content not included)... Normal [facility] PSA Totalon 12-28-2023 Prostate specific Ag [Mass/Vol] 0.5 ng/mL Normal 0.1-3.5 [facility] Comment on above: Result Comment: The concentration of PSA determined by different manufacturers can vary due to differences in assay methods and reagent specificity. Values obtained from different assay methods cannot be used interchangeably. The methodology used for this result was chemiluminescence using [employer] ([employer]s [employer] Hybritech PSA reagent. Performed By: #### 1 [id number] #### [facility] [address] [place] [address] Urology Office/Clinic Noteon 12-28-2023 Urology Office/Clinic Note [...] knows to get T level drawn exactly fpc in-between injections before 10 am. 2. BPH [...] [facility] [address], [place] [address]- Additional Instructions: 4 mos with T level. [...] Oral, Daily Caio (more content not included)... [facility] Comment on above: Result Comment: Elec tronically Signed By: Shady MOHAN MD\.br\Date and Time Signed: 12/28/23 13:12 EDT\.br\Electronically Co-Signed By: Kaia Valdez\.br\Date and Time Co-Signed: 12/28/23 13:08 EDT Pre-Certification Formon Pre-Certification Form [id number]#[id number] 0TIFF [facility] Pre-Certification Formon Pre-Certification Form [id number]#1.0 0TIFF [facility] Lab Reportson 06-30-2023 Lab Reports [id number]#1.0 0TIFF Normal [facility] Lab Reportson 06-20-2023 Lab Reports [id number]#1.0 0TIFF Normal [facility] Pre-Certification Formon Pre-Certification Form [id number]#1.0 0TIFF Normal [facility] VASC LAB Abdominal Aorta/Isela ac/IVC Ultraon 01-05-2023 VASC LAB Abdominal Aorta/Iliac/IVC Ultra [address], [address] [address] Vascular Lab Report Abdominal Aorta Iliac Ultrasound/IVC Ultrasound Patient Name: MIKE FLORENTINO Chacho Physician: [id number] Jade Gale MD, FAC Study Date: 01/05/2023 Referring JADE GALE Physician: MRN/PID: [id number] PCP: Josh Ospina MD Accession/Order#: [id number] CC Report to: Date of : 1955 Technologist: Deidre Jimenez RDCS, T Gender: M Technologist 2: Admission Status: Outpatient Location Performed: [facility] Diagnosis/ICD: A76-Eiwzvwdtu primary hypertension; R09.89-Bruit; I73.9-Peripheral vascular disease, unspecified Indication: ASCVD, Former Smoker, 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 Imaging AND Doppler Findings: AORTA AP Lateral PSV Proximal 1.49 cm 1.36 cm 101.0 cm/s Mid 1.55 cm 1.43 cm 97.0 cm/s Distal 1.57 cm 1.51 cm 72.0 cm/s RIGHT AP Lateral PSV FRANCISCO Proximal 1.08 cm 0.81 cm 147.00 cm/s LEFT AP Lateral PSV FRANCISCO Proximal 0.83 cm 0.96 cm 94.00 cm/s [address] Jade Gale MD, LOCATED WITHIN [facility] Final Normal [facility] TESTOSTERONE, TOTALon 2021 Testosterone [Mass/Vol] 229 ng/dL Critically low 264-916 [facility] Comment on above: Result Comment: Adul t male reference interval is based on a population of healthy nonobese males (BMI <30) between 19 and 39 years old. Leticia et.al. JCEM 2017,102;6733-7990. PMID: [id number]. Performed By: #### T ESTTOT ####[facility] [address] [place], [place] [address]Tt. Juan Alberto Carranza Office Visit (Cardiology)on 02-04-2022 [...] Weight Tips; Status:Complete - Retrospective Authorization; Done: [id number] Some eating tips that can help you lose weight.; Status:Complete - Retrospective Authorization; Done: [id number] SocHx: Former smoker Tobacco Use Screening; Status:Complete; Done: [id number] Patient Instructions Please bring all medicines, vitamins, and herbal supplements with you when you come to the office. Prescriptions will not be filled unless you are compliant with your follow up appointments or have a follow up appointment scheduled as per instruction of your physician. Refills should be requested at the time of your visit. 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 Vitals Vital Signs Recorded: [id number] 08:27AM Heart Rate74, R Radial Faqmiawy410, LUE, Sitting Msnyuzyvl12, LUE, Sitting Height6 ft 2 in Qokqsm405 lb 2 oz BMI Bzfsswdidr71.03 kg/m2 BSA Calculated2.29 Tobacco Useb) No PHQ-2 #1. Over the last 2 weeks have you felt down, depressed or hopeless? (If yes, answer PHQ-9 below)No PHQ-2 #2. Over the last 2 weeks have you felt littl (more content not included)... Normal [facility] GLYCOHEMOGLOBIN A1Con 2021 ADA RECOMMENDATION SEE BELOW Normal [facility] Comment on above: Result Comment: ADA RECOMMENDED LIMIT 4.0 - 6.0 ADA THERAPEUTIC TARGET < 7.0 ACTION SUGGESTED > 7.0 Performed By: #### A 1C #### [facility] [address] [place], [place] [address] Dr. Juan Alberto Carranza Glucose [Mass/Vol] 126 mg/dL Normal [facility] Comment on above: Performed By: #### A 1C #### [facility] [address] [place], [place] [address] Dr. Juan Alberto Carranza HbA1c (Bld) [Mass fraction] 6.0 % Normal 4.5-6.2 [facility] Comment on above: Performed By: #### A 1C #### [facility] [address] [place] [address] [address] Juan Alberto Carranza LIPID PROFILEon 01-10-2022 CHOL-HDL RATIO NORM SEE BELOW Normal [facility] Comment on above: Result Comment: 3.3 - 4.4 LOW RISK 4.4 - 7.1 AVERAGE RISK 7.1 - 11.0 MODERATE RISK >11.0 HIGH RISK Performed By: #### L IPID, CMP #### [facility] [address] [place] [address] [address] Juan Alberto Carranza Cholesterol [Mass/Vol] 136 mg/dL Normal <=200 [facility] Comment on above: Performed By: #### L IPID, CMP #### [facility] [address] [place] [address] [address] Juan Alberto Carranza Cholesterol in HDL [Mass/Vol] 62 mg/dL Critically high 40-60 [facility] Comment on above: Performed By: #### L IPID, CMP #### [facility] [address] [place] [address] [address] Juan Alberto Carranza Cholesterol in LDL [Mass/Vol] 57.6 mg/dL Normal [facility] Comment on above: Performed By: #### L IPID, CMP #### [facility] [address] [place] [address] [address] Juan Alberto Carranza Cholesterol.total/Chol esterol in HDL [Mass ratio] 2.2 {ratio} Normal [facility] Comment on above: Performed By: #### L IPID, CMP #### [facility] [address] [place] [address] [address] Juan Ablerto Carranza HDL NORMAL > or = 60 mg/dl - LO W CARDIOVASCULAR RISK <40 mg/dl - HIGH CARDIOVASCULAR RISK Normal [facility] Comment on above: Performed By: #### L IPID, CMP #### [facility] [address] [place] [id number] [address] Juan Alberto Carranza LDL CALC NORMAL SEE BELOW Normal [facility] Comment on above: Result Comment: <100 mg/dl OPTIMAL 100 - 129 mg/dl NEAR OR ABOVE OPTIMAL 130 - 159 mg/dl BORDERLINE HIGH 160 - 189 mg/dl HIGH >190 mg/dl VERY HIGH Performed By: #### L IPID, CMP #### [facility] [address] [place] [address] Dr. Juan Alberto Carranza Triglyceride [Mass/Vol] 82 mg/dL Normal <=150 [facility] Comment on above: Performed By: #### L IPID, CMP #### [facility] [address] [place] [address] Dr. Juan Alberto Carranza VLDL CALC 16.4 mg/dL Normal [facility] Comment on above: Performed By: #### L IPID, CMP #### [facility] [address] [place] [address] [address] Juan Alberto Carranza PROF 14(COMP METB)on 022 Albumin [Mass/Vol] 4.0 g/dL Normal 3.4-5.0 [facility] Comment on above: Performed By: #### L IPID, CMP #### [facility] [address] [place] [address] Dr. Juan Alberto Carranza Albumin/Globulin [Mass ratio] 1.3 {ratio} Normal [facility] Comment on above: Performed By: #### L IPID, CMP #### [facility] [address] [place] [address] Dr. Juan Alberto Carranza ALP [Catalytic activity/Vol] 48 U/L Normal 46-116 [facility] Comment on above: Performed By: #### L IPID, CMP #### [facility] [address] [place] [address] Dr. Juan Alberto Carranza ALT [Catalytic activity/Vol] 28 U/L Normal 16-63 [facility] Comment on above: Performed By: #### L IPID, CMP #### [facility] [address] [place] [address] Dr. Juan Alberto Carranza Anion gap [Moles/Vol] 13.2 mmol/L Normal [facility] Comment on above: Performed By: #### L IPID, CMP #### [facility] [address] [place] [address] Dr. Juan Alberto Carranza AST [Catalytic activity/Vol] 13 U/L Critically low 15-37 [facility] Comment on above: Performed By: #### L IPID, CMP #### [facility] [address] [place] [address] [address] Juan Alberto Carranza Bilirubin [Mass/Vol] 0.6 mg/dL Normal 0.2-1.0 [facility] Comment on above: Performed By: #### L IPID, CMP #### [facility] [address] [place] [address] Dr. Juan Alberto Carranza Calcium [Mass/Vol] 8.8 mg/dL Normal 8.5-10.1 [facility] Comment on above: Performed By: #### L IPID, CMP #### [facility] [address] [place] [address] Dr. Juan Alberto Carranza Chloride [Moles/Vol] 100 mmol/L Normal 98-107 [facility] Comment on above: Performed By: #### L IPID, CMP #### [facility] [address] [place] [address] Dr. Juan Alberto Carranza CO2 [Moles/Vol] 29.1 mmol/L Normal 21.0-32.0 [facility] Comment on above: Performed By: #### L IPID, CMP #### [facility] [address] [place] [address] Dr. Juan Alberto Carranza Creatinine [Mass/Vol] 0.89 mg/dL Normal 0.70-1.30 [facility] Comment on above: Performed By: #### L IPID, CMP #### [facility] [address] [place] [address] Dr. Juan Alberto Carranza EGFR-AF JAMAICAN >60 Normal >=60 [facility] Comment on above: Performed By: #### L IPID, CMP #### [facility] [address] [place] [address] Dr. Juan Alberto Carranza EGFR-NON AF JAMAICAN >60 Normal >=60 [facility] Comment on above: Performed By: #### L IPID, CMP #### [facility] [address] [place] [address] Dr. Juan Alberto Carranza Globulin (S) [Mass/Vol] 3.0 g/dL Normal [facility] Comment on above: Performed By: #### L IPID, CMP #### [facility] [address] [place] [address] [address] Juan Alberto Carranza Glucose [Mass/Vol] 134 mg/dL Critically high 74-106 [facility] Comment on above: Performed By: #### L IPID, CMP #### [facility] [address] [place] [address] [address] Juan Alberto Carranza Potassium [Moles/Vol] 4.3 mmol/L Normal 3.5-5.1 [facility] Comment on above: Performed By: #### L IPID, CMP #### [facility] [address] [place] [address] [address] Juan Alberto Carranza Protein [Mass/Vol] 7.0 g/dL Normal 6.4-8.2 [facility] Comment on above: Performed By: #### L IPID, CMP #### [facility] [address] [place] [address] [address] Juan Alberto Carranza Sodium [Moles/Vol] 138 mmol/L Normal 136-145 [facility] Comment on above: Performed By: #### L IPID, CMP #### [facility] [address] [place] [address] [address] Juan Alberto Carranza Urea nitrogen [Mass/Vol] 17.0 mg/dL Normal 7.0-18.0 [facility] Comment on above: Performed By: #### L IPID, CMP #### [facility] [address] [place] [address] Dr. Juan Alberto Carranza Urea nitrogen/Creatinine [Mass ratio] 19.1 mg/mg Normal [facility] Comment on above: Performed By: #### L IPID, CMP #### [facility] [address] [place] [address] Dr. Juan Alberto Carranza TESTOSTERONE, TOTALon 2021 Testosterone [Mass/Vol] 321 ng/dL Normal 264-916 [facility] Comment on above: Result Comment: Adul t male reference interval is based on a population of healthy nonobese males (BMI <30) between 19 and 39 years old. Travison, et.al. JCEM 2017,102;[id number]. PMID: [id number]. Performed By: #### T ESTTOT #### [facility] [address] [place] [address] Dr. Juan Alberto Carranza TESTOSTERONE, TOTALon 2021 Testosterone [Mass/Vol] 360 ng/dL Normal 264-916 [facility] Comment on above: Result Comment: Adul t male reference interval is based on a population of healthy nonobese males (BMI <30) between 19 and 39 years old. Leticia et.al. JCEM 2017,102;5890-6095. PMID: [id number]. Performed By: #### T ESTTOT ####[facility] [address] [id number]. Juan Alberto Carranza CBC AUTO DIFFon 07-13-2021 BASO # 0.0 103/ul Normal 0.0-0.1 [facility] Comment on above: Performed By: #### C BC #### [facility] [address] [place] [address] Dr. Juan Alberto Carranza Basophils/100 WBC (Bld) 0.5 % Normal 0.2-2.0 [facility] Comment on above: Performed By: #### C BC #### [facility] [address] [place] [address] Dr. Juan Alberto Carranza EO # 0.1 103/ul Normal 0.0-0.7 [facility] Comment on above: Performed By: #### C BC #### [facility] [address] [place] [address] Dr. Juan Alberto Carranza Eosinophils/100 WBC (Bld) 1.8 % Normal 0.9-7.0 [facility] Comment on above: Performed By: #### C BC #### [facility] [address] [place] [address] Dr. Juan Alberto Carranza Erythrocyte distribution width (RBC) [Ratio] 13.5 % Normal 11.0-15.0 [facility] Comment on above: Performed By: #### C BC #### [facility] [address] [place] [address] Dr. Juan Alberto Carranza Hematocrit (Bld) [Volume fraction] 40.4 % Critically low 42.0-54.0 [facility] Comment on above: Performed By: #### C BC #### [facility] [address] [place] [address] Dr. Juan Alberto Carranza Hemoglobin (Bld) [Mass/Vol] 13.9 g/dL Critically low 14.0-18.0 [facility] Comment on above: Performed By: #### C BC #### [facility] [address] [place] [address] Dr. Juan Alberto Carranza IG # 0.01 10e3/ul Normal 0.00-0.03 [facility] Comment on above: Performed By: #### C BC #### [facility] [address] [place] [address] Dr. Juan Alberto Carranza IG % 0.2 % Normal 0.0-0.5 [facility] Comment on above: Performed By: #### C BC #### [facility] [address] [place] [address] Dr. Juan Alberto Carranza LYMPH # 0.9 103/ul Critically low 1.2-3.8 [facility] Comment on above: Performed By: #### C BC #### [facility] [address] [place] [address] Dr. Juan Alberto Carranza Lymphocytes/100 WBC (Bld) 20.5 % Normal 20.5-60.0 [facility] Comment on above: Performed By: #### C BC #### [facility] [address] [place] [address] Dr. Juan Alberto Carranza MANUAL DIFF REQ NO Normal [facility] Comment on above: Performed By: #### C BC #### [facility] [address] [place] [address] Dr. Juan Alberto Carranza MCH (RBC) [Entitic mass] 32.3 pg Normal 25.9-34.0 [facility] Comment on above: Performed By: #### C BC #### [facility] [address] [place] [address] Dr. Juan Alberto Carranza MCHC (RBC) [Mass/Vol] 34.4 g/dL Normal 29.9-35.2 [facility] Comment on above: Performed By: #### C BC #### [facility] [address] [place] [address] Dr. Juan Alberto Carranza MCV (RBC) [Entitic vol] 93.7 fL Normal 80.0-94.0 [facility] Comment on above: Performed By: #### C BC #### [facility] [address] [place] [address] Dr. Juan Alberto Carranza MONO # 0.3 103/ul Normal 0.3-0.8 [facility] Comment on above: Performed By: #### C BC #### [facility] [address] [place] [address] Dr. Juan Alberto Carranza Monocytes/100 WBC (Bld) 7.0 % Normal 1.7-12.0 [facility] Comment on above: Performed By: #### C BC #### [facility] [address] [place] [address] Dr. Juan Alberto Carranza NEUT # 3.1 103/ul Normal 1.4-6.5 [facility] Comment on above: Performed By: #### C BC #### [facility] [address] [place] [address] Dr. Juan Alberto Carranza Neutrophils/100 WBC (Bld) 70.0 % Normal 43.0-75.0 [facility] Comment on above: Performed By: #### C BC #### [facility] [address] [place] [address] Dr. Juan Alberto Carranza Platelet mean volume (Bld) [Entitic vol] 11.3 fL Normal 9.5-13.5 [facility] Comment on above: Performed By: #### C BC #### [facility] [address] [place] [address] Dr. Juan Alberto Carranza PLT 141 103/ul Critically low 150-450 [facility] Comment on above: Performed By: #### C BC #### [facility] [address] [place] [address] Dr. Juan Alberto Carranza RBC 4.31 106/ul Critically low 4.70-6.10 [facility] Comment on above: Performed By: #### C BC #### [facility] [address] [address] [address] Juan Alberto Carranza WBC 4.4 103/ul Normal 4.0-11.0 [facility] Comment on above: Performed By: #### C BC #### [facility] [address] [address] [address] Juan Alberto Carranza LIPID PROFILEon 07-13-2021 CHOL-HDL RATIO NORM SEE BELOW Normal [facility] Comment on above: Result Comment: 3.3 - 4.4 LOW RISK 4.4 - 7.1 AVERAGE RISK 7.1 - 11.0 MODERATE RISK >11.0 HIGH RISK Performed By: #### L IPID #### [facility] [address] [place] [address] Dr. Juan Alberto Carranza Cholesterol [Mass/Vol] 139 mg/dL Normal <=200 [facility] Comment on above: Performed By: #### L IPID #### [facility] [address] [place] [address] Dr. Juan Alberto Carranza Cholesterol in HDL [Mass/Vol] 72 mg/dL Normal [facility] Comment on above: Performed By: #### L IPID #### [facility] [address] [place] [address] Dr. Juan Alberto Carranza Cholesterol in LDL [Mass/Vol] 62.4 mg/dL Normal [facility] Comment on above: Performed By: #### L IPID #### [facility] [address] [address] [address] Juan Alberto Carranza Cholesterol.total/Chol esterol in HDL [Mass ratio] 1.9 {ratio} Normal [facility] Comment on above: Performed By: #### L IPID #### [facility] [address] [place] [address] Dr. Juan Alberto Carranza HDL NORMAL > or = 60 mg/dl - LO W CARDIOVASCULAR RISK <40 mg/dl - HIGH CARDIOVASCULAR RISK Normal [facility] Comment on above: Performed By: #### L IPID #### [facility] [address] [place] [address] Dr. Juan Alberto Carranza LDL CALC NORMAL SEE BELOW Normal [facility] Comment on above: Result Comment: <100 mg/dl OPTIMAL 100 - 129 mg/dl NEAR OR ABOVE OPTIMAL 130 - 159 mg/dl BORDERLINE HIGH 160 - 189 mg/dl HIGH >190 mg/dl VERY HIGH Performed By: #### L IPID #### [facility] [address] [address] [address] Juan Alberto Carranza Triglyceride [Mass/Vol] 23 mg/dL Normal <=150 [facility] Comment on above: Performed By: #### L IPID #### [facility] [address] [address] [address] Juan Alberto Carranza VLDL CALC 4.6 mg/dL Normal [facility] Comment on above: Performed By: #### L IPID #### [facility] [address] [address] [address] Juan Alberto Carranza PROF 14(COMP METB)on 022 Albumin [Mass/Vol] 4.0 g/dL Normal 3.5-5.0 [facility] Comment on above: Performed By: #### C MP #### [facility] [address] [address] [address] Juan Alberto Carranza Albumin/Globulin [Mass ratio] 1.3 {ratio} Normal [facility] Comment on above: Performed By: #### C MP #### [facility] [address] [address] [address] Juan Alberto Carranza ALP [Catalytic activity/Vol] 60 U/L Normal 38-126 [facility] Comment on above: Performed By: #### C MP #### [facility] [address] [address] [address] Juan Alberto Carranza ALT [Catalytic activity/Vol] 22 U/L Normal 21-72 [facility] Comment on above: Performed By: #### C MP #### [facility] [address] [address] [address] Juan Alberto Carranza Anion gap [Moles/Vol] 9.4 mmol/L Normal [facility] Comment on above: Performed By: #### C MP #### [facility] [address] [address] [address] Juan Alberto Carranza AST [Catalytic activity/Vol] 12 U/L Critically low 17-59 [facility] Comment on above: Performed By: #### C MP #### [facility] [address] [address] [address] Juan Alberto Carranza Bilirubin [Mass/Vol] 0.6 mg/dL Normal 0.2-1.3 [facility] Comment on above: Performed By: #### C MP #### [facility] [address] [address] [address] Juan Alberto Carranza Calcium [Mass/Vol] 8.9 mg/dL Normal 8.4-10.2 [facility] Comment on above: Performed By: #### C MP #### [facility] [address] [place] [address] Dr. Juan Alberto Carranza Chloride [Moles/Vol] 103 mmol/L Normal 98-107 [facility] Comment on above: Performed By: #### C MP #### [facility] [address] [address] [address] Juan Alberto Carranza CO2 [Moles/Vol] 28.8 mmol/L Normal 22.0-30.0 [facility] Comment on above: Performed By: #### C MP #### [facility] [address] [place] [address] Dr. Juan Alberto Carranza Creatinine [Mass/Vol] 0.83 mg/dL Normal 0.66-1.25 [facility] Comment on above: Performed By: #### C MP #### [facility] [address] [place] [address] Dr. Juan Alberto Carranza EGFR-AF JAMAICAN >60 Normal >=60 [facility] Comment on above: Performed By: #### C MP #### [facility] [address] [place] [address] Dr. Juan Alberto Carranza EGFR-NON AF JAMAICAN >60 Normal >=60 [facility] Comment on above: Performed By: #### C MP #### [facility] [address] [place] [address] Dr. Juan Alberto Carranza Globulin (S) [Mass/Vol] 3.2 g/dL Normal [facility] Comment on above: Performed By: #### C MP #### [facility] [address] [address] [address] Juan Alberto Carranza Glucose [Mass/Vol] 135 mg/dL Critically high 74-106 [facility] Comment on above: Performed By: #### C MP #### [facility] [address] [address] [address] Juan Alberto Carranza Potassium [Moles/Vol] 5.2 mmol/L Critically high 3.4-5.0 [facility] Comment on above: Performed By: #### C MP #### [facility] [address] [address] [address] Juan Alberto Carranza Protein [Mass/Vol] 7.2 g/dL Normal 6.1-8.2 [facility] Comment on above: Performed By: #### C MP #### [facility] [address] [address] [address] Juan Alberto Carranza Sodium [Moles/Vol] 136 mmol/L Critically low 137-145 Th [facility] Comment on above: Performed By: #### C MP #### [facility] [address] [place] [address] Dr. Juan Alberto Carranza Urea nitrogen [Mass/Vol] 17.0 mg/dL Normal 9.0-20.0 [facility] Comment on above: Performed By: #### C MP #### [facility] [address] [address] [address] Juan Alberto Carranza Urea nitrogen/Creatinine [Mass ratio] 20.5 mg/mg Normal [facility] Comment on above: Performed By: #### C MP #### [facility] [address] [place] [address] Dr. Juan Alberto Carranza SED RATE [facility] 2021 SED RATE 2 mm/hr Normal <=20 [facility] Comment on above: Performed By: #### S EDR #### [facility] [address] [place] [address] Dr. 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 Hyperlipidemia, on statin therapy, under control. Lipid profile was requested from PCP 5. Overweight. Weight has dropped 15 pounds from last year which is encouraging 6. Hypertension, presently under control. 7. Diabetes, under control., Lab data from PCP were requested Jade Gale MD, [facility]IN [facility] Current Meds Medication NameInstruction Aspirin [...] PM Social History Problems Former smoker (V15.82) (Z87.941) Review of Systems Constitutional: not feeling tired. Cardiovascular: no intermittent leg claudication and as noted in HPI. Respiratory: no cough and no shortness of breath. Gastrointestinal: no change in bowel habits and no blood in stools. Integumentary: no skin rashes. Neurological: no seizures and no frequent falls. All other systems have been reviewed and are negative for complaint. Vitals Vital Signs Recorded: [id number] 03:40PM Heart Rate80, R Radial [id number], RUE, Sitting [id number], RUE, Sitting Height6 ft 2 in [id number] lb 9.6 oz BMI Fwahgrruig46.61 kg/m2 BSA Calculated2.31 Tobacco Useb) No Fall [...] by:VENICE Maeigned by:Jair Olivia MD07/06/17inal result Normal [facility] Vital Signs Date Time Vital Sign Value Performing Clinician Facility 06-09-2024 13:57-0500 Body height 1859.28 cm Wit [employer] DO Work Phone: [facility] 06-09-2024 13:57-0500 Body mass index (BMI) [Ratio] 0.3 kg/m2 JoshAdCrimson DO Work Phone: [facility] 06-09-2024 13:57-0500 Body weight 103.87 kg JoshAdCrimson DO Work Phone: [facility] 06-09-2024 13:57-0500 Diastolic blood pressure 66 mm[Hg] JoshAdCrimson DO Work Phone: [facility] 06-09-2024 13:57-0500 Heart rate 73 /min JoshAdCrimson DO Work Phone: [facility] 06-09-2024 13:57-0500 SaO2% (BldA) [Mass fraction] 97 % JoshAdCrimson DO Work Phone: [facility] 06-09-2024 13:57-0500 Systolic blood pressure 123 mm[Hg] Josh Furlong DO Work Phone: [facility] 05-04-2024 11:34-0500 Diastolic blood pressure 76 mm[Hg] Josh Furlong DO Work Phone: [facility] 05-04-2024 11:34-0500 Heart rate 52 /min Josh Furlong DO Work Phone: [facility] 05-04-2024 11:34-0500 Respiratory rate 20 /min Josh Furlong DO Work Phone: [facility] 05-04-2024 11:34-0500 SaO2% (BldA) [Mass fraction] 99 % Josh Furlong DO Work Phone: [facility] 05-04-2024 11:34-0500 Systolic blood pressure 156 mm[Hg] Josh Furlong DO Work Phone: [facility] 05-04-2024 08:37-0500 Body height 185.42 cm Josh Furlong DO Work Phone: [facility] 05-04-2024 08:37-0500 Body weight 102.51 kg Josh Furlong DO Work Phone: [facility] 05-02-2024 09:33-0500 Body height 185.4 cm Josh Furlong DO Work Phone: [facility] 05-02-2024 09:33-0500 Body mass index (BMI) [Ratio] 30.32 kg/m2 Josh Furlong DO Work Phone: [facility] 05-02-2024 09:33-0500 Body temperature 98.2 [degF] Josh Furlong DO Work Phone: [facility] 05-02-2024 09:33-0500 Body weight 104.24 kg Josh Furlong DO Work Phone: [facility] 05-02-2024 09:33-0500 Diastolic blood pressure 52 mm[Hg] [facility]ng [facility] 05-02-2024 09:33-0500 Heart rate 72 /min Josh Daileyng DO [facility] 05-02-2024 09:33-0500 Respiratory rate 18 /min Josh Daileyng DO Work Phone: [facility] 05-02-2024 09:33-0500 SaO2% (BldA) [Mass fraction] 99 % Josh Daileyng DO Work Phone: [facility] 05-02-2024 09:33-0500 Systolic blood pressure 104 mm[Hg] Josh Daileyng DO Work Phone: [facility] 03-22-2024 10:51-0500 Body height 185.42 cm [facility] 03-22-2024 10:51-0500 Body mass index (BMI) [Ratio] 30 kg/m2 [facility] 03-22-2024 10:51-0500 Body weight 103.41 kg [facility] 03-22-2024 10:51-0500 Diastolic blood pressure 61 mm[Hg] [facility] 03-22-2024 10:51-0500 Heart rate 67 /min [facility] 03-22-2024 10:51-0500 SaO2% (BldA) [Mass fraction] 98 % [facility] 03-22-2024 10:51-0500 Systolic blood pressure 112 mm[Hg] [facility] 03-22-2024 08:42-0500 Body height 185.4 cm Jade Gale MD Work Phone: [facility] 03-22-2024 08:42-0500 Body mass index (BMI) [Ratio] 29.95 kg/m2 Jade Gale MD Work Phone: [facility] 03-22-2024 08:42-0500 Body weight 102.97 kg Jade Gale MD Work Phone: [facility] 03-22-2024 08:42-0500 Diastolic blood pressure 50 mm[Hg] Jade Gale MD Work Phone: [facility] 03-22-2024 08:42-0500 Heart rate 64 /min Jade Gale MD Work Phone: [facility] 03-22-2024 08:42-0500 Systolic blood pressure 100 mm[Hg] Jade Gale MD Work Phone: [facility] 06-25-2023 09:55-0500 Body mass index (BMI) [Ratio] 29.34 kg/m2 Josh Larajenny GONGORA Work Phone: [facility] 06-25-2023 09:55-0500 Body weight 100.88 kg Josh Ospina DO Work Phone: [facility] 06-18-2023 08:39-0500 Body height 185.4 cm Jade Gale MD Work Phone: [facility] 06-18-2023 08:39-0500 Body mass index (BMI) [Ratio] 29.82 kg/m2 Jade Gale MD Work Phone: [facility] 06-18-2023 08:39-0500 Body weight 102.51 kg Jade Gale MD Work Phone: [facility] 06-18-2023 08:39-0500 Diastolic blood pressure 76 mm[Hg] Jade Gale MD Work Phone: [facility] 06-18-2023 08:39-0500 Heart rate 62 /min Jade Gale MD Work Phone: [facility] 06-18-2023 08:39-0500 Systolic blood pressure 130 mm[Hg] Jade Gale MD Work Phone: [facility] 03-27-2022 16:00-0500 Body height Aryan Jose Other [facility] Other 03-27-2022 16:00-0500 Body mass index (BMI) [Ratio] 29.81 kg/m2 Aryan Garcia Other [facility] Other 03-27-2022 16:00-0500 Body temperature 96.9 [degF] Aryan Garcia Other [facility] Other 03-27-2022 16:00-0500 Body weight 102.51 kg Aryan Garcia Other [facility] Other 03-27-2022 16:00-0500 Diastolic blood pressure 70 mm[Hg] Aryan Garcia Other [facility] Other 03-27-2022 16:00-0500 SaO2% (BldA) [Mass fraction] 100 % Aryan Garcia Other [facility] Other 03-27-2022 16:00-0500 Systolic blood pressure 128 mm[Hg] Aryan Garcia Other [facility] Other Encounters Encounter Date Encounter Type Care Provider Facility Start: 10-17-2024 End: 10-17-2024 ambulatory Shady MOHAN Facility:[facility] Start: 09-19-2024 End: 09-19-2024 ambulatory Shady MOHAN [facility] Start: 08-22-2024 End: 08-22-2024 ambulatory Shady MOHAN Facility:[facility] Start: 08-08-2024 End: 08-09-2024 Refill Belkys Merino [facility] Start: 08-04-2024 End: 08-04-2024 Refill Kenzie Richards [facility] Comment on above: Type 2 diabetes gordy itus with diabetic polyneuropathy, without long-term current use of insulin ([facility]) Start: 07-25-2024 End: 07-25-2024 ambulatory Shady MOHAN Facility:[facility] Start: 07-23-2024 End: 07-23-2024 Refill Josh G Furlong DO [facility] Start: 07-18-2024 End: 07-18-2024 ambulatory Shady MOHAN Facility:[facility] Start: 07-11-2024 End: 07-11-2024 Refill Belkys Angelique [employer] [facility] Start: 06-27-2024 End: 06-27-2024 ambulatory Shady MOHAN Facility:[facility] Start: 06-09-2024 End: 06-09-2024 ambulatory Josh Furlong DO Work Phone: [facility] Work Phone: Start: 06-09-2024 End: 06-09-2024 Patient encounter procedure Josh Furlong DO Work Phone: [facility] Work Phone: Start: 05-30-2024 End: 05-30-2024 ambulatory Shady Sallie MOHAN Facility:[facility] Start: 05-04-2024 Non-patient / Non-visit Josh Furlong DO Work Phone: [facility] Work Phone: Start: 05-04-2024 Non-patient / Non-visit Josh Furlong DO Work Phone: [facility] Work Phone: Start: 05-04-2024 End: 05-04-2024 Admission to same day surgery center Josh Furlong DO Work Phone: [facility] Work Phone: Start: 05-04-2024 End: 05-04-2024 ambulatory Imad Asaad Facility:[facility] Start: 05-02-2024 End: 05-02-2024 ambulatory [facility] Start: 05-02-2024 End: 05-02-2024 ambulatory Shady MOHAN Facility:[facility] Start: 05-02-2024 End: 05-02-2024 Office outpatient visit 25 minutes Josh Ospina DO [facility] Comment on above: Type 2 diabetes gordy itus with diabetic polyneuropathy, without long-term current use of insulin ([facility]) (Primary Dx); Essential hypertension; Peripheral vascular disease (CMS-HCC); ASCVD (arteriosclerotic cardiovascular disease); Class 1 obesity due to excess calories with serious comorbidity and body mass index (BMI) of 30.0 to 30.9 in adult; Myalgia Start: 05-02-2024 End: 05-02-2024 ambulatory [facility] Start: 04-24-2024 End: 04-24-2024 Refill Josh Ospina DO Work Phone: [facility] Start: 04-04-2024 End: 04-04-2024 ambulatory Shady MOHAN Facility:[facility] Start: 03-22-2024 End: 03-22-2024 ambulatory [facility] Work Phone: Start: 03-22-2024 End: 03-22-2024 Patient encounter procedure [facility] Work Phone: Start: 03-22-2024 End: 03-22-2024 Office outpatient visit 25 minutes Jade Gale MD Work Phone: [facility] Comment on above: ASCVD (arteriosclero tic cardiovascular disease) (Primary Dx); Peripheral vascular disease (CMS-HCC); Essential hypertension; Hyperlipidemia, unspecified hyperlipidemia type; Other specified diabetes mellitus without complication, without long-term current use of insulin; Obstructive sleep apnea syndrome; Former smoker; BMI 29.0-29.9,adult; Diabetes mellitus type II, non insulin dependent (Multi) Start: 03-22-2024 End: 03-22-2024 ambulatory [facility] Start: 03-08-2024 End: 03-08-2024 ambulatory Shady MOHAN Facility:[facility] Start: 02-29-2024 End: 02-29-2024 Orders Only Josh Ospina DO Work Phone: [facility] Comment on above: Normocytic normochro alma anemia (Primary Dx); Type 2 diabetes mellitus with diabetic polyneuropathy, without long-term current use of insulin ([facility]); Essential hypertension Start: 02-08-2024 End: 02-08-2024 ambulatory Shady MOHAN Facility:[facility] Start: 01-12-2024 End: 01-12-2024 ambulatory Josseline Kerr Facility:[facility] Start: 12-28-2023 End: 12-28-2023 ambulatory Shady MOHAN Facility[facility] Start: 12-28-2023 End: 12-28-2023 ambulatory Shady MOHAN Facility:[facility] Start: 11-02-2023 End: 11-02-2023 ambulatory Shady MOHAN Facility:[facility] Start: 07-02-2023 Refill Kenzie Richards MEDICAID BILLING SPECIALIST [facility] Comment on above: Type 2 diabetes gordy itus with diabetic polyneuropathy, without long-term current use of insulin ([facility]) (Primary Dx) Start: 07-01-2023 Refill Belkys Angelique MEDICAID BILLING SPECIALIST Liyah watts [facility] Comment on above: Type 2 diabetes gordy itus with diabetic polyneuropathy, without long-term current use of insulin ([facility]) (Primary Dx) Start: 06-29-2023 Refill Belkys Angelique MEDICAID BILLING SPECIALIST Liyah watts [facility] Start: 06-26-2023 Orders Only Josh escobedo DO Work Phone: [facility] Start: 06-25-2023 End: 06-25-2023 Office outpatient visit 25 minutes Josh Ospina DO Work Phone: [facility] Comment on above: Type 2 diabetes gordy itus with diabetic polyneuropathy, without long-term current use of insulin ([facility]) (Primary Dx); Normocytic normochromic anemia; Peripheral vascular disease ([facility]); Thrombocytopenia ([facility]) Start: 06-25-2023 End: 06-25-2023 [facility] [place] [facility] Start: 06-23-2023 Refill Belkys Angelique EMILY watts [facility] Start: 06-18-2023 End: 06-18-2023 Office outpatient visit 25 minutes Jade Gale MD [facility] Comment on above: ASCVD (arteriosclero tic cardiovascular disease) (Primary Dx); Peripheral vascular disease ([facility]); Essential hypertension; Hyperlipidemia, unspecified hyperlipidemia type; Other specified diabetes mellitus without complication, without long-term current use of insulin ([facility]); Former smoker; Overweight Start: 06-18-2023 End: 06-18-2023 ambulatory [facility] Start: 05-04-2023 End: 05-04-2023 ambulatory JOSH G [place] [facility] Start: 01-05-[address] Jade Gale Facility:[id number] Start: 10-08-2022 Office outpatient vi sit 25 minutes Josh Ospina Work Phone: [facility] Work Phone: Start: 08-20-2022 Rx Renewal Josh Dailey ng Work Phone: [facility] 250 DO Work Phone: Start: 04-26-2022 End: 04-27-[address] JOSH OSPINA Facility:[facility]1 Start: 03-27-2022 End: 03-27-2022 Patient encounter procedure DO Josh Ospina Work Phone: [facility] Start: 03-27-2022 End: 03-27-2022 ambulatory DO Josh Daileygregg Work Phone: [facility] Work Phone: Start: 03-27-2022 Office outpatient vi sit 25 minutes [address] [facility] Start: 02-04-[address] Jade Gale Facility: Start: 01-10-2022 End: 01-11-[address] JOSH OSPINA Facility:[facility]1 Start: 12-03-2021 Rx Renewal Josh Sanchez Lararinku ng Work Phone: [facility] 250 DO Work Phone: Start: 11-26-2021 Rx Renewal Josh Dailey ng Work Phone: [facility] 250 DO Work Phone: Start: 11-19-2021 Rx Renewal Josh Dailey ng Work Phone: [facility] 250 DO Work Phone: Start: 10-26-2021 End: 10-27-[address] JOSH OSPINA Facility:[facility]1 Start: 07-24-2021 End: 07-25-[address] SHANICE BAILEY Facility:[facility] Start: 07-13-2021 End: 07-14-[address] SHANICE BAILEY Facility:[facility] Start: 06-04-[address] JOSH OSPINA Fac ility:[facility]1 Start: 04-23-2021 ambulatory Josh Brand acility: Start: 07-06-2017 End: 07-09-2017 Ambulatory [facility] Procedures Date Procedure Procedure Detail Performing Clinician Start: 05-04-2024 Colonoscopy Josh alvarado DO Work Phone: Start: 05-02-2024 Adult depression scr eening assessment Josh Ospina DO Work Phone: Start: 05-02-2024 Microalbumin [Mass/v olume] in Urine by Test strip Belkys Angelique MEDICAID BILLING SPECIALIST Start: 04-01-2024 Diabetic retinal eye exam Josh [...] Adult depression scr eening assessment Belkys Angelique MEDICAID BILLING SPECIALIST Start: 05-04-2023 Microalbumin [Mass/v olume] in Urine by Test strip Belkys Angelique MEDICAID BILLING SPECIALIST Start: 05-13-2022 Diabetic retinal eye exam Belkys Angelique MEDICAID BILLING SPECIALIST Start: 04-26-[address] PINO MOHAN Comment on above: Performed By: #### P SAD #### [facility] [address] [place] [address] Dr. Juan Alberto Carranza Start: 07-06-2017 Mri any jt upper ext remity w/o contrast matrl EILEEN PURVIS Start: 04-07-2014 Colonoscopy Jade ge MD Work Phone: Angioplasty of blood vessel Josh [employer] Work Phone: Decompression of med kristin nerve Josh [employer] Work Phone: Percutaneous translu giovani coronary angioplasty Josh [employer] Work Phone: Repair of shoulder Josh [employer] Work Phone: Screening for malign ant neoplasm of colon Aryan Garcia Other Surgical procedure Josh Ospina Work Phone: Comment on above: History of Stent Ind ications; Total colonoscopy Josh thapa Work Phone: Total replacement of hip Yohan Ospina Work Phone: Plan of Treatment Date Care Activity Detail Author Start: 04-08-2029 Screening for malignant neoplasm of colon Colon Cancer Screening 5 Year Sigmoidoscopy [facility] Comment on above: Postponed from 10/19/2000 (Not Indicated ) Start: 05-02-2025 Adult BMI Screening Adult BMI Screening [facility] Start: 05-02-2025 Depression Screening Depression Screening [facility] Start: 05-02-2025 Fall Risk Screening Fall Risk Screening [facility] Start: 05-02-2025 Tobacco Screening Tobacco Screening [facility] Start: 05-02-2025 Urine screening for protein Urine Microalbumin [facility] Start: 04-01-2025 Glaucoma screening Diabetic Ophthalmology Exam [facility] Start: 12-27-2024 End: 12-27-2024 Patient encounter procedure 12/27/2024 8:50 AM EDT [facility] [address] [facility] [address] [place] [address] Jade Gale MD [address] [facility] [address] [place] [address] [facility] Start: 11-14-2024 ambulatory Ambulatory Facility:[facility] Start: 10-31-2024 End: 10-31-2024 Patient encounter procedure 10/31/2024 9:00 AM EDT [facility] [address] [place] [address] Josh Ospina DO [address] [place] [address] [facility] Start: 07-04-2024 DTaP,Tdap and Td Vaccines (2 - Td or Tdap) DTaP,Tdap and Td Vaccines (2 - Td or Tdap) [facility] Start: 07-04-2024 DTaP/Tdap/Td Vaccines (2 - Td or Tdap) DTaP/Tdap/Td Vaccines (2 - Td or Tdap) [facility] Start: 06-25-2024 Adult BMI Screening Adult BMI Screening [facility] Start: 06-25-2024 Depression Screening Depression Screening [facility] Start: 06-25-2024 Fall Risk Screening Fall Risk Screening [facility] Start: 06-25-2024 Tobacco Screening Tobacco Screening [facility] Start: 05-18-2024 COVID-19 Vaccine () COVID-19 Vaccine () [facility] Comment on above: Postponed from 01/17/2024 (Patient Refus ed) Start: 05-04-2024 Adult BMI Screening Adult BMI Screening [facility] Start: 05-04-2024 Depression Screening Depression Screening [facility] Start: 05-04-2024 Diabetic foot examination Diabetic Foot Exam [facility] Start: 05-04-2024 Fall Risk Screening Fall Risk Screening [facility] Start: 05-04-2024 Tobacco Screening Tobacco Screening [facility] Start: 05-04-2024 Urine screening for protein [facility] Start: 05-04-2024 [facility] Start: 05-02-2024 End: 05-02-2024 Patient encounter procedure 05/02/2024 9:30 AM EST Office Visit [facility] [address] [place] [address] Josh Ospina DO [address], [place] [address] [facility] Start: 04-07-2024 Screening for malignant neoplasm of colon [facility] Start: 03-22-2024 End: 03-22-2025 Alanine aminotransferase [Enzymatic activity/volume] in Serum or Plasma by With P-5'-P Alanine Aminotransferase Lab Routine ASCVD (arteriosclerotic cardiovascular disease) Hyperlipidemia, unspecified hyperlipidemia type Expected: 03/22/2024 (Approximate), Expires: 03/22/2025 [facility] Service Area Work Phone: Comment on above: Expected: 03/22/2024 (Approximate), Expi res: 03/22/2025 Start: 03-22-2024 End: 03-22-2025 Aspartate aminotransferase [Enzymatic activity/volume] in Serum or Plasma by With P-5'-P Aspartate Aminotransferase Lab Routine ASCVD (arteriosclerotic cardiovascular disease) Hyperlipidemia, unspecified hyperlipidemia type Expected: 03/22/2024 (Approximate), Expires: 03/22/2025 [facility] Work Phone: Comment on above: Expected: 03/22/2024 (Approximate), Expi res: 03/22/2025 Start: 03-22-2024 End: 03-22-2025 Basic metabolic 2000 panel - Serum or Plasma Basic Metabolic Panel Lab Routine ASCVD (arteriosclerotic cardiovascular disease) Essential hypertension Expected: 03/22/2024 (Approximate), Expires: 03/22/2025 [facility] Work Phone: Comment on above: Expected: 03/22/2024 (Approximate), Expi res: 03/22/2025 Start: 03-22-2024 End: 03-22-2025 CBC panel - Blood by Automated count CBC Lab Routine ASCVD (arteriosclerotic cardiovascular disease) Expected: 03/22/2024 (Approximate), Expires: 03/22/2025 [facility] Work Phone: Comment on above: Expected: 03/22/2024 (Approximate), Expi res: 03/22/2025 Start: 03-22-2024 End: 03-22-2025 Lipid 1996 panel - Serum or Plasma Lipid Panel Lab Routine ASCVD (arteriosclerotic cardiovascular disease) Hyperlipidemia, unspecified hyperlipidemia type Expected: 03/22/2024 (Approximate), Expires: 03/22/2025 [facility] Work Phone: Comment on above: Expected: 03/22/2024 (Approximate), Expi res: 03/22/2025 Start: 03-22-2024 End: 03-22-2024 Patient encounter procedure 03/22/2024 8:40 AM EST [facility] [address] [place] [id number] Jade Gale MD [address] [facility] [place] [address] [facility] Start: 01-17-2024 COVID-19 Vaccine ( season) COVID-19 Vaccine () [facility] Start: 01-17-2024 COVID-19 Vaccine () COVID-19 Vaccine () [facility] Start: 01-17-2024 COVID-19 Vaccine () COVID-19 Vaccine () [facility] Start: 01-17-2024 COVID-19 Vaccine () COVID-19 Vaccine () [facility] Start: 01-17-2024 Influenza vaccination Influenza Vaccine [facility] Start: 09-18-2023 Medicare Annual Wellness Visit Medicare Annual Wellness Visit [facility] Start: 06-25-2023 End: 06-25-2023 Patient encounter procedure 06/25/2023 10:00 AM EST Office Visit [facility] [address] [place] [address] Josh Ospina, [address], [facility] [place] [address] [facility] Start: 06-18-2023 End: 06-18-2024 Alanine aminotransferase [Enzymatic activity/volume] in Serum or Plasma by With P-5'-P Alanine Aminotransferase Lab Routine ASCVD (arteriosclerotic cardiovascular disease) Peripheral vascular disease (CMS/HCC) Essential hypertension Hyperlipidemia, unspecified hyperlipidemia type Other specified diabetes mellitus without complication, without long-term current use of insulin (CMS/HCC) Expected: 06/18/2023 (Approximate), Expires: 06/18/2024 [facility] Service Area Work Phone: Comment on [...] insulin (CMS/HCC) Expected: 06/18/2023 (Approximate), Expires: 06/18/2024 [facility] Work Phone: Comment on above: Expected: 06/18/2023 (Approximate), Expi res: 06/18/2024 Start: 06-18-2023 End: 06-18-2024 Basic metabolic 2000 panel - Serum or Plasma Basic Metabolic Panel Lab Routine ASCVD (arteriosclerotic cardiovascular disease) Peripheral vascular disease (CMS/HCC) Essential hypertension Hyperlipidemia, unspecified hyperlipidemia type Other specified diabetes mellitus without complication, without long-term current use of insulin (CMS/HCC) Expected: 06/18/2023 (Approximate), Expires: 06/18/2024 [facility] Work Phone: Comment on above: Expected: 06/18/2023 (Approximate), Expi res: 06/18/2024 Start: 06-18-2023 End: 06-18-2024 CBC panel - Blood by Automated count CBC Lab Routine ASCVD (arteriosclerotic cardiovascular disease) Peripheral vascular disease (CMS/HCC) Essential hypertension Hyperlipidemia, unspecified hyperlipidemia type Other specified diabetes mellitus without complication, without long-term current use of insulin (CMS/HCC) Expected: 06/18/2023 (Approximate), Expires: 06/18/2024 [facility] Work Phone: Comment on above: Expected: 06/18/2023 (Approximate), Expi res: 06/18/2024 Start: 06-18-2023 End: 06-18-2024 Lipid 1996 panel - Serum or Plasma Lipid Panel Lab Routine ASCVD (arteriosclerotic cardiovascular disease) Peripheral vascular disease (CMS/HCC) Essential hypertension Hyperlipidemia, unspecified hyperlipidemia type Other specified diabetes mellitus without complication, without long-term current use of insulin (CMS/HCC) Expected: 06/18/2023 (Approximate), Expires: 06/18/2024 [facility] Work Phone: Comment on above: Expected: 06/18/2023 (Approximate), Expi res: 06/18/2024 Start: 06-18-2023 FUV, Provider: Jade Gale, Status: Pen, Time: 9:00 AM FUV, Provider: Jade Gale, Status: Pen, Time: 9:00 AM [facility] Work Phone: Start: 05-13-2023 Glaucoma screening [facility] Start: 01-16-2023 COVID-19 Vaccine ( season) COVID-19 Vaccine ( season) [facility] Start: 01-16-2023 COVID-19 Vaccine ( season) COVID-19 Vaccine ( season) [facility] Start: 01-16-2023 COVID-19 Vaccine ( season) COVID-19 Vaccine ( season) [facility] Start: 01-05-2023 AOILIVC, Provider: CECILIA MICHAELI ULTRASOUND 01,[id number], Status: Pen, Time: 7:45 AM AOILIVC, Provider: CECILIA HHVI ULTRASOUND 01,[id number], Status: Pen, Time: 7:45 AM [facility] Work Phone: Start: 10-08-2022 FUV, Provider: Jade Gale, Status: Pen, Time: 8:40 AM FUV, Provider: Jade Gale, Status: Pen, Time: 8:40 AM [facility] [address] DO Work Phone: Start: 02-04-2022 FUV, Provider: Jade Gale, Status: Pen, Time: 8:30 AM FUV, Provider: Jade Gale, Status: Shayne, Time: 8:30 AM -[facility]ward DO Work Phone: Start: 2015 RSV High Risk: (Elderly (60+) or Population) (1 - Risk 60-74 years 1-dose series) RSV High Risk: (Elderly (60+) or Population) (1 - Risk 60-74 years 1-dose series) [facility] Start: 10-19-2000 Screening for malignant neoplasm of colon Colon Cancer Screening 5 Year Sigmoidoscopy [facility] Start: 10-19-1973 Adult BMI Follow Up Plan Adult BMI Follow Up Plan [facility] Start: 10-19-1973 Hepatitis C screening Hepatitis C Screening [facility] Start: 10-19-1965 Diabetic foot examination Diabetes: Foot Exam [facility] Start: 10-19-1965 Glaucoma screening Diabetes: Retinopathy Screening [facility] Start: 1955 Hemoglobin A1c measurement Diabetes: Hemoglobin A1C [facility] Start: 1955 Lipid panel Lipid Panel [facility] Start: 1955 Medicare Annual Wellness Visit Medicare Annual Wellness Visit (AWV) [facility] Start: 1955 Screening for malignant neoplasm of colon [facility] End: 02-28-2025 Basic metabolic 2000 panel - Serum or Plasma Basic Metabolic Panel Lab Routine Essential hypertension 1 Occurrences starting 02/29/2024 until 02/28/2025 [facility] Comment on above: 1 Occurrences starting 02/29/2024 until 02/28/2025 End: 02-28-2025 CBC panel - Blood by Automated count CBC Lab Routine Normocytic normochromic anemia 1 Occurrences starting 02/29/2024 until 02/28/2025 [facility] Comment on above: 1 Occurrences starting 02/29/2024 until 02/28/2025 End: 02-28-2025 Hemoglobin A1c/Hemoglobin.total in Blood Hemoglobin A1c Lab Routine Type 2 diabetes mellitus with diabetic polyneuropathy, without long-term current use of insulin ([facility]) 1 Occurrences starting 02/29/2024 until 02/28/2025 [employer] Work Phone: Comment on above: 1 Occurrences starting 02/29/2024 until 02/28/2025 End: 05-02-2025 Microalbumin - Albumin: Creatinine Urine Ratio Microalbumin - Albumin: Creatinine Urine Ratio Lab Routine Type 2 diabetes mellitus with diabetic polyneuropathy, without long-term current use of insulin ([facility]) 1 Occurrences starting 05/02/2024 until 05/02/2025 [facility] Work Phone: Comment on above: 1 Occurrences starting 05/02/2024 until 05/02/2025 Patient Education Colon polyps K now your Meds [facility] Work Phone: Immunizations Immunization Date Immunization Notes Care Provider Rahel rice 03-23-2024 Influenza, High-dose , Quadrivalent Josh Laralong DO Work Phone: [facility] 02-05-2023 Influenza, High-dose , Quadrivalent [facility] 02-05-2023 influenza virus vacc ine, unspecified formulation [facility] 04-14-2022 pneumococcal conjuga te vaccine, 13 valent Eblk[facility] 04-14-2022 Prevnar 20 0.5 ML Intramuscular Suspension Prefilled Syringe Josh Ospina Work Phone: [facility] Work Phone: 02-18-2021 Pfizer-BioNTech COVI D-19 Vacc 30 MCG/0.3ML Intramuscular Suspension Josh G Laralong Work Phone: [facility] 08-08-2020 Pfizer-BioNTech COVI D-19 Vacc 30 MCG/0.3ML Intramuscular Suspension Josh G Laralong Work Phone: [facility] 250 DO Work Phone: 08-05-2020 Pfizer Purple Cap SARS-CoV-2 Jade Gale MD Work Phone: [facility] Work Phone: 07-18-2020 Moderna COVID-19 Vac cine 100 MCG/0.5ML Intramuscular Suspension Josh Sanchez [employer] Work Phone: [facility] [place] DO Work Phone: 07-18-2020 PfizerToonimoNTCalester COVI D-19 Vacc 30 MCG/0.3ML Intramuscular Suspension Josh Sanchez [employer] Work Phone: [facility] [place] DO Work Phone: 07-16-2020 COVID-19, mRNA, LNP- S, PF, 30mcg/0.3mL Dose [facility] 05-08-2020 pneumococcal polysaccharide vaccine, 23 valent Josh Sanchez [employer] Work Phone: [facility] 02-16-2020 influenza virus vacc ine, unspecified formulation Josh G [employer] Work Phone: [facility] Work Phone: 02-16-2020 influenza, injectabl e, quadrivalent, preservative free Jade Gale MD Work Phone: [facility] Work Phone: 02-16-2020 influenza, seasonal, injectable [facility] 06-29-2019 zoster vaccine recombinant Josh Sanchez [employer] Work Phone: [facility] Work Phone: 04-28-2019 zoster vaccine recombinant Josh Sanchez [employer] Work Phone: [facility] Work Phone: 03-18-2019 influenza virus vacc ine, unspecified formulation Josh G [employer] Work Phone: [facility] Work Phone: 03-18-2019 influenza, seasonal, injectable [facility] 03-02-2019 influenza, injectabl e, quadrivalent, contains preservative [facility] Work Phone: [facility] [place] DO Work Phone: 04-13-2018 Influenza, injectabl e, Madin Myla Canine Kidney, preservative free, quadrivalent Josh G Furlong Work Phone: [facility] Work Phone: 03-18-2018 influenza virus vacc ine, unspecified formulation Josh G Furlong Work Phone: [facility] Work Phone: 04-20-2017 influenza, injectabl e, quadrivalent, preservative free Josh G Furlong Work Phone: [facility] Work Phone: 03-31-2017 influenza, injectabl e, quadrivalent, preservative free Josh G Furlong Work Phone: [facility] Work Phone: 03-26-2017 influenza virus vacc ine, unspecified formulation [facility] 03-18-2017 influenza virus vacc ine, unspecified formulation Josh G Furlong Work Phone: [facility] DO Work Phone: 02-16-2016 influenza virus vacc ine, unspecified formulation Josh G Furlong Work Phone: [facility] DO Work Phone: 03-18-2015 influenza, seasonal, injectable Josh G Furlong Work Phone: [facility] 250 DO Work Phone: 02-15-2015 influenza virus vacc ine, unspecified formulation Josh G Furlong Work Phone: [facility] DO Work Phone: 07-04-2014 pneumococcal conjuga te vaccine, 13 valent Josh Sanchez [place] Work Phone: [place] [address] DO Work Phone: 07-04-2014 tetanus toxoid, redu leonel diphtheria toxoid, and acellular pertussis vaccine, adsorbed [facility] Work [facility]: [place] [address] DO Work Phone: 02-22-2014 influenza virus vacc ine, whole virus Josh Sanchez [place] Work Phone: [place] [address] DO Work Phone: 07-18-2013 influenza virus vacc ine, unspecified formulation [facility] Work Phone: [place] [address] DO Work Phone: 05-18-2011 influenza virus vacc ine, unspecified formulation [facility] 03-18-2011 influenza virus vacc ine, unspecified formulation [facility] 05-18-2009 influenza virus vacc ine, unspecified formulation [facility] 03-18-2009 influenza virus vacc ine, unspecified formulation Josh Bermudezng Work Phone: [place] [address] DO Work Phone: influenza virus vacc ine, unspecified formulation [facility] Work Phone: [place] [address] DO Work Phone: Comment on above: [id number] [id number] Payers Date Payer Category Payer Self-pay [id number] 2022 Commercial Indemnity [facility] [id number] 2022 Unknown 2020 Medicare [id number] 2020 Medicare [id number] 1959 Medicare [id number] 1959 Self-pay [id number] 1959 Unknown [id number] 1955 Unknown [id number] 1955 Unknown [id number] 1955 Unknown [id number] 1955 Unknown [id number] 1955 Unknown [id number] 1955 Unknown [id number] 1955 Unknown [id number] 1955 Unknown [id number] 2.16.840.1.886365.3.579.2.5 1955 Unknown [id number] 2.16840.1.199165.3.579.2.5 93 1955 Unknown [id number] 2.16.840.1.830947.3.579.2.5 93 1955 Unknown [id number] 2.16.840.1.648463.3.579.2.1 068 1955 Unknown [id number] 2.16.840.1.195404.3.579.2.1 244 1955 Unknown [id number] 2.16.840.1.917613.3.579.2.1 244 1955 Unknown [id number] 2.16.840.1.184598.3.579.2.1 286 1955 Unknown [id number] 2.16.840.1.291163.3.579.2.1 286 1955 Unknown [id number] 2.16.840.1.723144.3.579.2.1 286 1955 Unknown [id number] 2.16.840.1.198040.3.579.2.7 27 1955 Unknown [id number] 2.16.840.1.283080.3.579.2.7 27 1955 Unknown [id number] 2.16.840.1.667561.3.579.2.7 27 1955 Unknown [id number] 2.16.840.1.564871.3.579.2.7 27 1955 Unknown [id number] 2.16.840.1.775175.3.579.2.7 27 1955 Unknown [id number] 2.16.840.1.547515.3.579.2.1 286 1955 Unknown [id number] 2.16.840.1.943911.3.579.2.7 27 1955 Unknown [id number] 2.16.840.1.546014.3.579.2.7 27 1955 Unknown [id number] 2.16.840.1.538141.3.579.2.7 27 1955 Unknown [id number] 2.16.840.1.903399.3.579.2.7 27 1955 Unknown [id number] 2.16.840.1.713731.3.579.2.7 27 1955 Unknown [id number] 2.16.840.1.041987.3.579.2.7 27 1955 Unknown [id number] 2.16.840.1.860358.3.579.2.7 27 1955 Unknown [id number] 2.16.840.1.626636.3.579.2.7 27 1955 Unknown [id number] 2.16.840.1.421502.3.579.2.7 27 1955 Unknown [id number] 2.16.840.1.842155.3.579.2.7 27 1955 Unknown [id number] 2.16.840.1.367341.3.579.2.7 27 Unknown [id number] 2.16.840.1.821785.3.579.2.5 31 Social History Date Type Detail Facility Start: 03-19-2022 End: 05-26-2023 Alcohol use Alcohol use [facility] 250 DO Work Phone: Comment on above: 1-2 cups of coffee d aily; Start: 03-19-2022 End: 05-26-2023 Sex Assigned At [facility] [employer] Other Start: 04-08-2019 End: 03-19-2022 Tobacco smoking status LAIS Ex-smoker (finding) [facility] Start: 1955 Sex Assigned At Male F [facility] Start: 03-19-1974 End: 05-09-1996 History of tobacco use Current smoker [facility] Work Phone: Start: 03-19-1974 End: 05-09-1996 History of tobacco use Cigarette Smoker [facility] Work Phone: Start: 03-19-2022 End: 05-26-2023 Tobacco use and exposure Smokeless tobacco non-user [facility] Work Phone: Start: 06-18-2023 End: 05-02-2024 Alcohol intake Current drinker of alcohol (finding) [facility] Work Phone: Start: 1955 Sex Assigned At Not on file [facility] Work Phone: Start: 06-08-2023 End: 03-22-2024 Exposure to SARS-CoV-2 (event) Not sure [facility] Start: 03-27-2022 Tobacco smoking stat us LAIS Never smoked tobacco (finding) [facility] Start: 12-21-2014 End: 06-09-2024 Sex Male (finding) [facility] Has the [employer], [employer], oil, or water company threatened to shut off services in your home in past 12Mo No [facility] Do you belong to any clubs or organizations such as restoration groups, unions, fraternal or athletic groups, or [...] drinks on 1 occasion? Less than monthly [facility] How hard is it for y ou to pay for the very basics like food, housing, medical care, and heating Not hard at all [facility] Do you feel stress - tense, restless, nervous, or anxious, or unable to sleep at night because your mind is troubled all the time - these days [OSQ] Not at all [facility] Start: 03-20-2022 Alcohol Comment Occasional [facility] How hard is it for y ou to pay for the very basics like food, housing, medical care, and heating Not very hard [facility] Medical Equipment Procedure Code Equipment Code Equipment Origin al Text Equipment Identifier Dates Accu-Chek Carley Plus test strips TEST ONCE DAILY [id number] End: 06-29-2023 Accu-Chek Fastcl ix Lancet Drum USE ONCE DAILY DIRECTED [id number] End: 06-29-2023 Accu-Chek FastCl ix Lancing Device [id number] End: 07-02-2023 Accu-Chek Carley Plus test strips TEST ONCE DAILY [id number] Start: 06-29-2023 End: 07-02-2023 Accu-Chek Fastcl ix Lancet Drum USE ONCE DAILY DIRECTED [id number] Start: 06-29-2023 End: 07-02-2023 Accu-Chek Carley Plus test strips TEST ONCE DAILY [id number] Start: 07-03-2023 End: 08-04-2024 Accu-Chek Fastcl ix Lancet Drum USE ONCE DAILY DIRECTED [id number] Start: 07-03-2023 End: 08-04-2024 Accu-Chek FastCl ix Lancing Device [id number] Start: 07-03-2023 End: 08-04-2024 Accu-Chek Carley Plus test strips TEST ONCE DAILY [id number] Start: 07-03-2023 Accu-Chek Fastcl ix Lancet Drum USE ONCE DAILY DIRECTED [id number] Start: 07-03-2023 End: 08-04-2024 Accu-Chek Fastcl ix Lancet Drum USE ONCE DAILY DIRECTED [id number] Start: 08-04-2024 Accu-Chek FastCl ix Lancing Device [id number] Start: 08-04-2024 Accu-Chek Carley Plus test strips TEST ONCE DAILY [id number] Start: 08-04-2024 Accu-Chek Fastcl ix Lancet Drum USE ONCE DAILY DIRECTED [id number] Start: 08-04-2024 Goals Date Patient Goal Desired Activity /State Clinical Notes 07-24-2021 to 08-08-2024 Telephone Encounter - EMILY Alfaro 08/08/2024 5:06 PM EDTTelephone Encounter - Belkys Merino CMA - 08/08/2024 5:06 PM EDTJosh Ospina, - 05/02/2024 9:30 AM EST Note Date & Type Note Facility 08-08-2024 Miscellaneous Notes [facility] documented in this encounter [facility] 08-08-2024 Telephone encounter Note [facility] 07-18-2024 Note Patient Education Urology Hypogonadism, Male [...] Follow these instructions at home: ??? Take mmuf-zzx-flyhnpb and prescription medicines only as told by [...] you discuss any (more content not included)... [facility] 05-02-2024 Note Patient Education Urology Hypogonadism, Male [...] Follow these instructions at home: ??? Take nsje-tjb-tvbqnct and prescription medicines only as told by [...] you discuss any (more content not included)... [facility] 05-02-2024 History of Presen t illness Narrative Subjective Patient ID: Mike Florentino is a 68 y.o. male. Right presents today for diabetic and cardiovascular recheck. He is taking his medications. He is not having any side effects. He is seeing the property accountant. Does have intermittent bilateral thigh pain that [...] Exam Vitals reviewed. Exam conducted with a heavy duty custodian present (Jagruti Dumont MS3). Constitutional: General: He [...] polyneuropathy, without long-term current use of insulin ([facility]) - Microalbumin - Albumin: Creatinine Urine Ratio; [...] possibly statin induced documented in this encounter [facility] 03-22-2024 Evaluation note Diagnosis Onset Date Resolution Coronary artery disease acute N ov2023 10:38am Diabetes acute March 22, 2024 10:38am Essential hypertension acute No vember 2023 10:38am ROCK (obstructive sleep apnea) acute March 22 10:38am [facility] Work Phone: 1(437) 392-360711-05-2024 History of Present illness Narrative* Jade Gale 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 documented in this [facility] Work Phone: 1(221) 978-690311-05-2024 Instructions* Patient Instructions* Buffy Funez LPN - [...] Lab work [facility] Phone: 1(198) 812-378110-14-2024 Miscellaneous Notes* Telephone Encounter - Kelly Brandt - 02/29/2024 11:37 AM EDT PATIENT IS COMING IN 05/02 AND WOULD LIKE LABS SENT TO [facility] PLEASE AND THANKK YOU [facility] Telephone encounter Note* Telephone Encounter - Kelly Brandt - 02/29/2024 11:37 AM EDT PATIENT IS COMING IN 05/02 AND WOULD LIKE LABS SENT TO [facility] PLEASE AND THANKK YOU [facility] [id number] NotePatient Education Urology Hypogonadism, Male Male hypogonadism [...] Follow these instructions at home: ? Take ywxm-zuj-wksxcty and prescription medicines only as told by [...] care provider. Document Revised: (more content not included)...[facility] 07-02-2023 Miscellaneous Notes* Telephone Encounter - Kenzie Richards CMA - 07/02/2023 4:40 PM EST Pt called and needs all GULOSE TESTING supplies sent to [facility] due to medicare only covering them from there. [facility] Telephone encounter Note* Telephone Encounter - Kenzie Richards CMA - 07/02/2023 4:40 PM EST Pt called and needs all GULOSE TESTING supplies sent to [facility] due to medicare only covering them from there. [facility]02-14-2024 Miscellaneous Notes* Telephone Encounter - Belkys Merino CMA - 07/01/2023 1:20 PM EST Pt called yaritza cedeno called him stated [...] what was going on [facility] Telephone encounter Note* Telephone Encounter - Belkys Merino CMA - 07/01/2023 1:20 PM EST Pt called yaritza cedeno called him stated his insurance is not covering his lancets or strips there wanted to know if you could point him in the right direction as he is not sure [facility]02-14-2024 Telephone encounter Note* Telephone Encounter - Josh Ospina DO - 07/01/2023 1:20 PM EST It sounds like a formulary issue. They should cover some type of glucometer and test strips. Have him check his formulary and see which brand is covered and then let us know. [employer] [id number] Telephone encounter Note* Telephone Encounter - Belkys Merino CMA - 07/01/2023 1:20 PM EST He did say when he got home he was going to call his insurance and see what was going on [facility] [employer] [id number] History of Present illness Narrative* Josh Laura DO Janell - 06/25/2023 10:00 AM EST Subjective Patient ID: Mike Florentino is a 67 y.o. male. Mike presents today to discuss several issues regarding his medications. He had labs done ordered bythe property accountant at another facility and is here to [...] April 08, [address] Ad[place] in [place] and it was normal. He has been getting pain in his thighs lately. His property accountant told him it was probably his circulation [...] polyneuropathy, without long-term current use of insulin ([facility]) We discussed his medications. He [...] is aware of that. Peripheral vascular disease ([facility]) Follow-up with cardiology as directed. Controlling risk factors are important. His lipids and CMP were essentially at goal. 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 [facility] Work Phone: 1(933) 805-863802-01-2024 Instructions* Patient Instructions* Willian Sumner MA - [...] time of your visit. [facility] Work Phone: 1(944) 737-956511-10-2022 Evaluation note* Encounter Date Diagnosis Assessment Notes [...] sleepiness, or poor response to treatment. . [employer] Other 03-09-2022 NotePROCEDURE: XR KNEE RT 4V [...] Electronically authenticated by: EILEEN QURESHI Date: 2021-07-24 17:01[facility] noteNo assessment information availableAshtabula [facility] Work Phone: Evaluation note* Diagnosis ASCVD (arteriosclerotic cardiovascular disease)- Primary Unspecified cardiovascular disease Peripheral vascular disease (CMS/HCC) Unspecified peripheral vascular disease Essential hypertension Unspecified essential hypertension Hyperlipidemia, unspecified hyperlipidemia type Other specified diabetes mellitus without complication, without long-term current use of insulin (CMS/HCC) Former smoker Personal history of tobacco use, presenting hazards to health Overweight documented in this encounter [facility] Work Phone: Evaluation note* Diagnosis ASCVD (arteriosclerotic cardiovascular disease)- Primary Unspecified cardiovascular disease Peripheral vascular disease ([facility]) Unspecified peripheral vascular disease Essential hypertension Unspecified [...] stated as uncontrolled documented in this encounter [facility] Work Phone: Evaluation note* Diagnosis Type 2 diabetes mellitus with diabetic polyneuropathy, without long-term current use of insulin ([facility])- Primary Normocytic normochromic anemia Unspecified anemia Peripheral vascular disease ([facility]) Unspecified peripheral vascular disease Thrombocytopenia ([facility]) Unspecified thrombocytopenia [facility]* Diagnosis Type 2 diabetes mellitus with diabetic polyneuropathy, without long-term current use of insulin ([facility])- Primary documented in [facility] encounter [facility]* Diagnosis Type 2 diabetes mellitus with diabetic polyneuropathy, without long-term current use of insulin ([facility])- Primary documented in [facility] encounter [facility]* Diagnosis Normocytic normochromic anemia- Primary Unspecified anemia Type 2 diabetes mellitus with diabetic polyneuropathy, without long-term current use of insulin ([facility]) Essential hypertension Unspecified essential hypertension documented [facility]* Diagnosis Type 2 diabetes mellitus with diabetic polyneuropathy, without long-term current use of insulin ([facility])- Primary Essential hypertension Unspecified essential hypertension Peripheral vascular disease ([facility]) Unspecified peripheral vascular disease ASCVD (arteriosclerotic cardiovascular disease) Unspecified cardiovascular disease Class 1 obesity due to excess calories with serious comorbidity and body mass index (BMI) of 30.0 to 30.9 in adult Myalgia Unspecified myalgia and myositis documented in this encounter [facility]* Diagnosis Type 2 diabetes mellitus with diabetic polyneuropathy, without long-term current use of insulin ([facility]) [facility] N[facility] - Reported* Type Description Date Medical History ROCK (obstructive sleep apnea) Medical History CAD in [place] artery Surgical History heart stent Surgical History left hip replacement [facility] Other InstructionsNot on filedocumented in this encounter [...] complication, without long-term current use of insulin ([facility]) Procedures Follow Up In Cardiology Jade Gale MD [address] [place] [address], [address] [address] Jade Gale MD [address] [place] [address] 2, [address] [place] [address] Referral ID Status Reason Start Date Expiration Date V isits Requested Visits Authorized [id number] Authorized 06/18/2023 06/17/2024 1 1 [facility] Work Phone: Summary Purpose Family History [...] Amb Documentation May 04, 2024 3:16pm ROCK -June 09, 2024 1 :37pm Reason for Visit [...] with tobacco use. 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, currently has stable [...] which is scheduled * Jade Gale MD, [facility] Additional Source Comments (unrecognized sect ion and content) No Status Records FoundNo Status Records FoundNo Status Records FoundNo Status Records FoundNo Status Records FoundNo Status Records FoundNo Status Records FoundNo Status Records FoundNo Status Records FoundNo Status Records FoundNo Status Records Found INFORMATION SOURCE (unrecogn ized section and content) DATE CREATED AUTHOR 11/06/2017 [facility] DATE CREATED AUTHOR AUTHOR'S ORGANIZ ATION 02/16/2022 [facility] DATE CREATED AUTHOR AUTHOR'S ORGANIZ ATION 02/16/2022 [employer] DATE CREATED AUTHOR AUTHOR'S ORGANIZ ATION 05/08/2022 [facility] DATE CREATED AUTHOR AUTHOR'S ORGANIZ ATION 01/07/2023 [facility] DATE CREATED AUTHOR AUTHOR'S ORGANIZ ATION 04/19/2024 [facility] DATE CREATED AUTHOR AUTHOR'S ORGANIZ ATION 05/04/2024 [facility] DATE CREATED AUTHOR AUTHOR'S ORGANIZ ATION 05/04/2024 [facility] DATE CREATED AUTHOR AUTHOR'S ORGANIZ ATION 05/05/2024 [facility] DATE CREATED AUTHOR AUTHOR'S ORGANIZ ATION 05/19/2024 [facility] DATE CREATED AUTHOR AUTHOR'S ORGANIZ ATION 10/18/2024 [facility] Care Teams (unrecognized sec tion and content) Team Status: Active Member Role Status Dates Josh Ospina DO Primary Care Provider Active Team Status: Inactive Member Role Status Dates Josh Ospina DO Primary Care Provider Active Start: March 22, 2024 End: March 22, 2024 Lyn Pollack NP Attending Provider Active Start: March 22, 2024 End: March 22, 2024 Team Status: Inactive Member Role Status Dates Josh Ospina DO Primary Care Provider Active Aryan Garcia MD Attending Provider Active Director Employment Relationship Specialty Start Date End Date Josh Ospina DO [address] [facility], [place] [address] PCP - General 05/18/99 Director Employment Relationship Specialty Start Date End Date Josh Ospina DO PCP - General 05/18/99 Team Status: Inactive Member Role Status Dates Josh Ospina DO Primary Care Provider Active Start: May 04, 2024 End: May 04, 2024 Shanique Chiang MD Attending Provider Active Start: May 04, 2024 End: May 04, 2024 Team Status: Active Member Role Status Dates Josh Ospina DO Primary Care Provider Active Start: May 04, 2024 Shanique Chiang MD Attending Provider, Other Provider Active Start: May 04, 2024 Team Status: Active Member Role Status Dates Josh Ospina DO Primary Care Provider Active Start: May 04, 2024 Jaymie Krueger CMA Attending Provider Active St art: May 04, 2024 Team Status: Inactive Member Role Status Dates Josh Ospina DO Primary Care Provider Active Start: June 09, 2024 End: June 09, 2024 Lyn Pollack NP Attending Provider Active Start: June 09, 2024 End: June 09, 2024 Director Employment Relationship Specialty Start Date End Date JanellJosh [address], [place] [address] PCP - General Family Medicine 03/19/22 Director Employment Relationship Specialty Start Date End Date Janell Josh Laura [address], [place] [address] PCP - General Family Medicine 03/19/22 Director Employment Relationship Specialty Start Date End Date Josh Ospina Laura [address], [place] [address] PCP - General Family Medicine 03/19/22 Director Employment Relationship Specialty Start Date End Date Josh Ospina DO [address], [place] [address] PCP - General Family Medicine 03/19/22 Director Employment Relationship Specialty Start Date End Date Josh Ospina DO [address], [place] [address] PCP - General Family Medicine 03/19/22 Director Employment Relationship Specialty Start Date End Date LararinkuJosh escobedo DO [address] [place] [address] PCP - General Family Medicine 03/19/22 Director Employment Relationship Specialty Start Date End Date LararinkuJosh escobedo DO [address], [place] [address] PCP - General Family Medicine 03/19/22 Director Employment Relationship Specialty Start Date End Date Josh Ospina DO [address], [place] [address] PCP - General Family Medicine 03/19/22 Director Employment Relationship Specialty Start Date End Date Josh Ospina DO [address] [place] [address] PCP - General Family Medicine 03/19/22 Director Employment Relationship Specialty Start Date End Date Josh Ospina DO [address] [place] [address] PCP - General Family Medicine 03/19/22 Director Employment Relationship Specialty Start Date End Date Josh Ospina DO [address] [place] [address] PCP - General Family Medicine 03/19/22 Director Employment Relationship Specialty Start Date End Date Josh Ospina DO [address] [place] [address] PCP - General Family Medicine 03/19/22 Director Employment Relationship Specialty Start Date End Date Josh Ospina DO [address] [place] [address] PCP - General Family Medicine 03/19/22 Goals [...] ASCVD (arteriosclerotic cardiovascular disease) Peripheral vascular disease ([facility]) Essential hypertension Hyperlipidemia, unspecified hyperlipidemia type Other specified diabetes mellitus without complication, without long-term current use of insulin Procedures Follow Up In Cardiology Jade Gale MD [address] [place] [address], [address] [address] Phone: tel: fax: Jade Gale MD [address] [place] [address] [address], [address] [address] Phone: tel: fax: Referral ID Status Reason Start Date Expiration Date V isits Requested Visits Authorized [id number] Authorized 06/18/2023 06/17/2024 1 1 Reason Comments [...] BE BASED ON THE PRIMARY CLINICAL RECORDS. [facility] [employer]. provides no warranty or guarantee of the accuracy or completeness of information in this document.
--- OUTSIDE RECORDS SUMMARY | 2024-10-31 07:29 | XMS_ITS | Encounter Summary ---
Author Organization [facility] Address [address] [place] [address] Phone Care Team Providers Care Bible Teacher Name Role Phone Josh Ospina DO Primary Care Provider Encounter Details Date Type Department Care Team (Late st Contact Info) Description 09/17/2022 Orders Only [facility] [address] [place] [address] Conversion, Onbase Social History Tobacco Use Types [...] Description 12/27/2024 8:50 AM EDT Office Visit [facility] [address] [address] Jade Gale MD [address] [facility] [address] [place] [address] Scheduled Orders Name Type Priority Associated Diagnoses Orde r Schedule OUTSIDE LAB SCAN Lab Ordered: 09/17/2022 documented as of this encounter Visit Diagnoses Not on filedocumented in this encounter Care Teams Bible Teacher Relationship Specialty Start Date End Date Josh Ospina DO PCP - General 05/18/99 documented as of this encounter
--- OUTSIDE RECORDS SUMMARY | 2024-10-31 07:29 | XMS_ITS | Encounter Summary ---
Author Organization [facility] Address [facility]-[id number] [address] [place] [address] Care Team Providers Care Trust Advisor Name Role Phone Josh Ospina DO Primary Care Provider [phone] Reason for Visit * Reason Comments Med Refill Encounter Details Date Type Department Care Team (Late st Contact Info) Description 04/11/2022 Refill [facility] - Family Medicine [address] [place] [address] Josh Ospina DO [address], [facility] [place] [address] Social History Tobacco Use Types Packs/Day Years [...] often do you attend chur ch or spiritism services? More than 4 times per year 03/19/2022 Do you belong to any clubs o r organizations such as quaker groups, unions, fraternal or athletic groups, or [...] AM EDT documented as of this encounter Plan of Treatment Upcoming Encounters Date Type Department Care Team (Late st Contact Info) Description 10/31/2024 9:00 AM EDT Office Visit [facility] - Family Medicine [address] [place] [address] Josh Ospina DO [address] [facility] [place] [address] documented as of this encounter Visit Diagnoses Not on filedocumented in this encounter Additional Health Concerns Assessment Noted Time PHQ-9 Depression Total Score: 1 03/19/20 22 10:20 AM EDT documented as of this encounter Care Teams Trust Advisor Relationship Specialty Start Date End Date Josh Ospina DO [address] [facility] [place] [address] PCP - General Family Medicine 03/19/22 documented as of this encounter
--- OUTSIDE RECORDS SUMMARY | 2024-10-31 07:29 | XMS_ITS | Encounter Summary ---
Author Organization [employer] [facility] tem Address [facility]-[id number] [address] [place] [address] Care Team Providers Care Forestry Aid Name Role Phone Josh Ospina DO Primary Care Provider [phone] Encounter Details Date Type Department Care Team (Late Contact Info) Description 02/13/2022 Orders Only [facility] - Family Medicine [address] [place] [address] External, Scanning Provider Social History Tobacco Use [...] - Family Medicine [address] [place] [address] Josh Ospina DO [address] [place] [address] documented as of this encounter Visit Diagnoses Not on filedocumented in this encounter Care Teams Forestry Aid Relationship Specialty Start Date End Date Josh Ospina DO [address] [facility], [place] [address] PCP - General Family Medicine 03/19/22 documented as of this encounter
--- OUTSIDE RECORDS SUMMARY | 2024-10-31 07:29 | XMS_ITS | Encounter Summary ---
Author Organization [facility] tem Address [id number] [address] [place] [address] Care Team Providers Care Business Writer Name Role Phone Josh Ospina Primary Care Provider [phone] Encounter Details Date Type Department Care Team (Late st Contact Info) Description 12/29/2023 Orders Only [facility] - Family Medicine [address] [place] [address] Ref Prov, [place] [address] Social History Tobacco Use Types Packs/Day Years Used Date Smoking Tobacco: Former Cigarettes 2 22.1 1 05/19/1973 - 05/09/1996 Smokeless Tobacco: Never Alcohol Use Standard Drinks/Week Comments Yes 0 (1 standard drink = 0.6 oz pur e alcohol) Occasional C Utilities Answer Date Recorded In the past 12 months has [employer], gas, oil, or water [employer] threatened to shut off services in your [...] How often do you attend chur or temple services? More than 4 times per year 03/19/2022 Do you belong to any clubs o r organizations such as holiness groups, unions, fraternal or athletic groups, or [...] Recorded Do you need help finding a [facility] career center and/or a training [...] - Family Medicine [address] [place] [address] Josh Ospina DO [address] [facility] [place] [address] documented as of this encounter Procedures Procedure Name Priority Date/Time Associated Diagnosis Comments FREE PSA Routine 12/28/2023 3:06 PM EDT documented in this encounter Results * Free PSA (12/28/2023 3:06 PM EDT) us Not In System Ref Prov LAB BLOOD ORDERABLES Viji l Result MANUALLY TRANSCRIBED RESULTS documented in this encounter Visit Diagnoses Not on filedocumented in this encounter Additional Health Concerns Assessment Noted Time PHQ-9 Depression Total Score: 0 06/25/19 24 9:56 AM EST documented as of this encounter Care Teams Business Writer Relationship Specialty Start Date End Date Josh Ospina DO [address] [facility] [place] [address] PCP - General Family Medicine 03/19/22 documented as of this encounter
[2024-11-01 04:07] LABS: Testosterone 520 ng/dL (264-916)
[2024-11-01 08:09] LABS: Prolactin 13.1 ng/mL (3.6-25.2)
== END 2024-10-31 07:26 | disposition home or self-care (01) ==
LOC: LAB 07:27
PROVIDERS: PCP Family Medicine; Visit Provider Urology
DX: E29.1 Testicular hypofunction (principal)
CPT/HCPCS: 36415; 84146; 84403

== ENCOUNTER 2024-12-28 07:38 | Outpatient (OUT) | payer MEDICARE, OTHER, SELFPAY ==
--- OUTSIDE RECORDS SUMMARY | 2024-12-27 08:50 | XMS_ITS | Encounter Summary ---
Author Organization [facility] Address [address] [place] [address] Phone Care Team Providers Care Receiving Teller Name Role Phone LararinkuJosh escobedo Primary Care Provider Reason for Referral * Consultation (Routine) - Authorized Specialty Diagnoses / Procedures Referred By Kevin roman Referred To Contact Cardiology Diagnoses ASCVD (arteriosclerotic cardiovascular disease) Procedures Follow Up In Cardiology Jade Gale MD [address] [place] [address] [address], [address] [address] Phone: tel: fax: Jade Gale MD [address] [place] [address] [address], [address] [address] Phone: tel: fax: Referral ID Status Reason Start Date Expiration Date V isits Requested Visits Authorized [id number] Authorized 12/27/2024 12/27/2025 1 1 Reason for Visit * Reason Comments Follow-up 9 month ASCVD (arter iosclerotic cardiovascular disease) * Consultation (Routine) - Authorized Specialty Diagnoses / Procedures Referred By Kevin roman Referred To Contact Cardiology Diagnoses ASCVD (arteriosclerotic cardiovascular disease) Procedures Follow Up In Cardiology Jade Gale MD [address] [place] [address] [address], [address] [address] Phone: tel: fax: Jade Gale MD [address] [facility] 2, [address] [address] Phone: tel: fax: Referral ID Status Reason Start Date Expiration Date V isits Requested Visits Authorized [id number] Authorized 03/22/2024 03/22/2025 1 1 Encounter Details Date Type Department Care Team (Latest Contact Info) Description 12/27/2024 8:50 AM EDT Office Visit [facility] [address] [address] Jade Gale MD [facility] 2, [address] [address] ASCVD (arteriosclerotic cardiovascular disease) (Primary Dx); Peripheral vascular disease; Essential hypertension; Mixed hyperlipidemia; Other specified diabetes mellitus without complication, without long-term current use of insulin; Obstructive sleep apnea syndrome; Former smoker; Obesity (BMI 30-39.9); Intermittent claudication Discharge Disposition: Home Social History Tobacco Use Types Packs/Day Years [...] on file documented as of this encounter Last Filed Vital Signs Vital Sign Reading Time Taken Comments Blood Pressure 110/50 12/27/2024 8:51 AM EDT Pulse 72 12/27/2024 8:51 AM EDT Temperature - - Respiratory Rate - - Oxygen Saturation - - Inhaled Oxygen Concentration - - Weight 105 kg (232 lb 3.2 oz) 12/27/2024 8:51 AM EDT Height 185.4 cm (6' 1 ) 12/27/2024 8:51 AM EDT Body Mass Index 30.64 12/27/2024 8:51 AM EDT documented in this encounter Patient Instructions * Patient Instructions* Buffy Funez LPN - 12/27/2024 8:50 AM EDT Please bring all medicines, vitamins, and herbal supplements with you when you come to the office. Prescriptions will not be filled unless you are compliant with your follow up appointments or have a follow up appointment scheduled as per instruction of your physician. Refills should be requested at the time of your visit. BMI was above normal measurement. Current weight: 105 kg (232 lb 3.2 oz) Weight change since last visit (-) denotes wt loss 5.2 lbs Weight loss needed to achieve BMI 25: 43.1 Lbs Weight loss needed to achieve BMI 30: 5.3 Lbs Provided instructions on dietary changes. Lab work Follow up 9 months documented in this encounter Progress Notes * Jade Gale MD - 12/27/2024 8:50 AM EDT HPI Patient is in the office for follow-up for CAD and PAD along with hypertension hyperlipidemia and obstructive sleep apnea. He maintains active lifestyle and was doing some remodeling on the porch in his house and has not had any trouble with dyspnea palpitations or shortness of breath and no chest pain. He occasionally has claudication in the lower extremities with heavy walking that is relieved by stopping. He has no tissue loss. He has not needed nitroglycerin use. He has not had blood work as we requested after his last visit and he will take care of that in the immediate future. His weight is 5 pounds above his previous weight, something we discussed today and need to reverse the course. His cardiac and pulmonary examinations along with vascular examination was unremarkable except forfemoral bruits bilaterally. He has no side effect of medication and has been compliant with CPAP machine. ASSESSMENT AND PLAN: 1. Coronary heart disease, patient is status post PCI of the RCA in 2004 and 2016. He is presently without angina or any Signos of recurrent significant CAD.. No cardiac testing and no change in medication is needed, risk factors have been controlled 2. Obstructive sleep apnea, on CPAP machine. Reminded patient to keep his weight under control and shed few more pounds off. 3. 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 In his quadriceps bilaterally. He has bilateral femoral artery bruits. Encouraged the patient to continue to be physically active and advised him that his walking exercise program is as good as interventions. He is non-smoker currently 4. Hyperlipidemia, on statin therapy, lipid profile is requested, reminded patient to cut back on animal fat and dairy products 5. Class I obesity. He has gained 5 pounds in the last several months something that he was advisedto reverse by cutting back on portions 6. Essential hypertension, presently under control. No side effect of medications, he has been following low-salt diet and for most part compliant with CPAP machine. 7. Type II diabetes, A1c below 7 on most recent testing. Reminded patient to continue to lose weight, watch his carbohydrate intake and continue present medications for diabetes 8. History of rheumatoid arthritis on hydroxychloroquine, presently stable. ROS Occasional claudication with heavy walking Vitals: 12/27/24 0851 BP: 110/50 BP Location: Left arm Patient Position: Sitting Pulse: 72 Weight: 105 kg (232 lb 3.2 oz) Height: 1.854 m (6' 1 ) Objective [...] normal. Allergies Ticagrelor Current Medications Current Outpatient Medications Medication Instructions clopidogrel (PLAVIX) 75 mg, oral, Daily dutasteride (AVODART) 0.5 mg, Daily Farxiga 10 mg, Daily before breakfast hydroxychloroquine (Plaquenil) 200 mg tablet 1 tablet, 2 times daily meloxicam (Mobic) 7.5 mg tablet 1 tablet, Daily (0630) metFORMIN (Glucophage) 500 mg tablet 2 tablets, 2 times daily ramipril (ALTACE) 10 mg, oral, Daily rosuvastatin (CRESTOR) 10 mg, oral, Nightly sildenafil (VIAGRA) 100 mg, As needed SITagliptin phosphate (Januvia) 100 mg tablet 1 tablet, Daily tamsulosin (Flomax) 0.4 mg 24 hr capsule 1 capsule, Daily testosterone cypionate (Depo-Testosterone) 200 mg/mL injection INJECT 300 mg (1.5 ml) INTRAMUSCULARLY EVERY FOUR weeks verapamil SR (CALAN-SR) 240 mg, oral, Daily Assessment/Plan 1. ASCVD (arteriosclerotic cardiovascular disease) Follow Up In Cardiology Alanine Aminotransferase Aspartate Aminotransferase Basic Metabolic Panel CBC Lipid Panel Follow Up In Cardiology clopidogrel (Plavix) 75 mg tablet Alanine Aminotransferase Aspartate Aminotransferase Basic Metabolic Panel CBC Lipid Panel 2. Peripheral vascular disease CBC CBC 3. Essential hypertension Basic Metabolic Panel Basic Metabolic Panel 4. Hyperlipidemia, unspecified hyperlipidemia type Alanine Aminotransferase Aspartate Aminotransferase Lipid Panel Alanine Aminotransferase Aspartate Aminotransferase Lipid Panel 5. Other specified diabetes mellitus without complication, without long-term current use of insulin 6. Sleep apnea, unspecified type 7. Former smoker 8. Obesity (BMI 30-39.9) Scribe Attestation By signing my name below, Buffy Manzano LPN, Scribe attest that this documentation has been prepared under the direction and in the presence of Jade Gale MD. Provider Attestation - Scribe documentation All medical record entries made by the Scribe were at my direction and personally dictated by me. Iam reviewed the chart and agree that the record accurately reflects my personal performance of the history, physical exam, discussion and plan. documented in this encounter Plan of Treatment Upcoming Encounters Date Type Department Care Team (Late st Contact Info) Description 09/20/2025 8:40 AM EDT Office Visit [facility] [address] [facility] [address] [place] [address] Jade Gale MD [facility] [facility] 2, [place] [address] [place] [address] Scheduled Orders Name Type Priority Associated Diagnoses Orde r Schedule Alanine Aminotransferase Lab Routine ASCVD (arteriosclerotic cardiovascular disease) Mixed hyperlipidemia Expected: 12/27/2024 (Approximate), Expires: 12/27/2025 Aspartate Aminotransferase Lab Routine ASCVD (arteriosclerotic cardiovascular disease) Mixed hyperlipidemia Expected: 12/27/2024 (Approximate), Expires: 12/27/2025 Basic Metabolic Panel Lab Routine ASCVD (arteriosclerotic cardiovascular disease) Essential hypertension Expected: 12/27/2024 (Approximate), Expires: 12/27/2025 CBC Lab Routine ASCVD (arteriosclerotic cardiovascular disease) Peripheral vascular disease Expected: 12/27/2024 (Approximate), Expires: 12/27/2025 Lipid Panel Lab Routine ASCVD (arteriosclerotic cardiovascular disease) Mixed hyperlipidemia Expected: 12/27/2024 (Approximate), Expires: 12/27/2025 documented as of this encounter Visit Diagnoses Diagnosis ASCVD (arteriosclerotic cardiovascular disease)- Primary Unspecified cardiovascular disease Peripheral vascular disease Unspecified peripheral vascular disease Essential hypertension Unspecified essential hypertension Mixed hyperlipidemia Other specified diabetes mellitus without complication, without long-term current use of insulin Obstructive sleep apnea syndrome Obstructive sleep apnea (adult) (pediatric) Former smoker Personal history of tobacco use, presenting hazards to health Obesity (BMI 30-39.9) Intermittent claudication Unspecified peripheral vascular disease documented in this encounter Additional Health Concerns Assessment Noted Time A fall risk assessment has been complete d for the patient 03/22/2024 8:42 AM EST documented as of this encounter Care Teams Receiving Teller Relationship Specialty Start Date End Date Josh Ospina DO PCP - General 05/18/99 documented as of this encounter
--- OUTSIDE RECORDS SUMMARY | 2024-12-28 07:44 | XMS_ITS | Encounter Summary ---
Author Organization [facility] tem Address [id number] [address] [place] [address] Care Team Providers Care Gardener Name Role Phone Josh Ospina DO Primary Care Provider Encounter Details Date Type Department Care Team (Late st Contact Info) Description 02/02/2023 Orders Only [facility] Internal [facility] - Family Medicine [address] [place] [address] Josh Ospina DO [address], [facility] [address] Social History Tobacco Use Types Packs/Day Years [...] often do you attend chur ch or restoration services? More than 4 times per year 03/19/2022 Do you belong to any clubs o r organizations such as moravian groups, unions, fraternal or athletic groups, or [...] Answer Date Recorded Total Score 0 09/17/2022 [facility] of Occupat ional [facility] - Occupational Stress Questionnaire Answer Date [...] purpose and direction in my life. Martha smith Agree 03/19/2022 Sex and Gender Information Value Date Recorded Sex Assigned at Not on file Legal Sex Male 11:56 AM EDT Gender Identity Not on file Sexual Orientation Not on file documented as of this encounter Plan of Treatment Upcoming Encounters Date Type Department Care Team (Late st Contact Info) Description 05/03/2025 9:30 AM EST Office Visit [facility] - Family Medicine [address] [place] [address] Josh Ospina DO [address], [facility] [address] documented as of this encounter Procedures Procedure [...] documented as of this encounter Care Teams Gardener Relationship Specialty Start Date End Date Josh Ospina DO [address] [facility] [place] [address] PCP - General Family Medicine 03/19/22 documented as of this encounter
--- OUTSIDE RECORDS SUMMARY | 2024-12-28 07:44 | XMS_ITS | Encounter Summary ---
Author [facility] Address [id number] [address] [place] [address] Care Team Providers Care Seismic Computer Name Role Phone LaraJosh alvarado Primary Care Provider Encounter Details Date Type Department Care Team (Late st Contact Info) Description 06/25/2023 [facility]phone [facility] [address] [place] [address] Angelique, Belkys, WAX POT TENDER Social History Tobacco Use Types Packs/Day Years Used Date Smoking Tobacco: Former Cigarettes 2 22.1 1 05/19/1973 - 05/09/1996 Smokeless Tobacco: Never Alcohol Use Standard Drinks/Week Comments Yes 0 (1 standard drink = 0.6 oz pur e alcohol) Occasional C Utilities Answer Date Recorded In the past 12 months has [employer], gas, oil, or water company threatened to [...] How often do you attend chur or uatsdin services? More than 4 times per year [...] Answer Date Recorded Total Score 0 06/25/2023 [facility] - Occupational [...] Do you need help finding a [facility] career [facility] and/or a training program? [...] Medicine - Family Medicine [address] [place] [address] Josh Ospina DO [address] [facility] [place] [address] documented as of this encounter Visit Diagnoses Not on filedocumented in this encounter Additional Health Concerns Assessment Noted Time PHQ-9 Depression Total Score: 0 06/25/19 24 9:56 AM EST documented as of this encounter Care Teams Seismic Computer Relationship Specialty Start Date End Date Josh Ospina DO [address] [facility] [place] [address] PCP - General Family Medicine 03/19/22 documented as of this encounter
--- OUTSIDE RECORDS SUMMARY | 2024-12-28 07:44 | XMS_ITS | Encounter Summary ---
Author Organization [facility] Address [facility]-[id number] [address] [place] [address] Care Team Providers Care Military Pay Technician Name Role Phone LaraJosh alvarado Primary Care Provider Encounter Details Date Type Department Care Team (Late st Contact Info) Description 06/25/2023 [facility]phone [facility] [address] [place] [phone] Angelique, Belkys, MODEL MAKING SUPERVISOR Social History Tobacco Use Types Packs/Day Years Used Date Smoking Tobacco: Former Cigarettes 2 22.1 1 05/19/1973 - 05/09/1996 Smokeless Tobacco: Never Alcohol Use Standard Drinks/Week Comments Yes 0 (1 standard drink = 0.6 oz pur e alcohol) Occasional C Utilities Answer Date Recorded In the past 12 months has [employer], gas, oil, or water company threatened to [...] How often do you attend chur or adventism services? More than 4 times per year 03/19/2022 Do you belong to any clubs o r organizations such as catholic groups, unions, fraternal or athletic groups, or [...] Answer Date Recorded Total Score 0 06/25/2023 [facility] of Occupat ional [...] Recorded Do you need help finding a [facility] career center and/or a training program? No [...] - Family Medicine [address] [place] [address] Josh Ospina DO [address] [facility] [place] [address] documented as of this encounter Visit Diagnoses Not on filedocumented in this encounter Additional Health Concerns Assessment Noted Time PHQ-9 Depression Total Score: 0 06/25/19 24 9:56 AM EST documented as of this encounter Care Teams Military Pay Technician Relationship Specialty Start Date End Date Josh Ospina DO [address] [facility] [place] [address] PCP - General Family Medicine 03/19/22 documented as of this encounter
--- OUTSIDE RECORDS SUMMARY | 2024-12-28 07:44 | XMS_ITS | Clinical Summary ---
Author Organization [facility] Address [address] [place] [address] Care Team Providers Care Pattern Checker Name Role Phone Unavailable Primary Care Provider Unavailabl e Social History Tobacco Use Types Packs/Day Years Used Date Smoking Tobacco: Never Assessed Sex and Gender Information Value Date Recorded Sex Assigned at Not on file Legal Sex Male 6:54 PM EDT Gender Identity Not on file Sexual Orientation Not on file Last Filed Vital Signs Vital Sign Reading Time Taken Comments Blood Pressure 123/51 03/30/2019 12:00 PM EST Pulse - - Temperature - - Respiratory Rate - - Oxygen Saturation - - Inhaled Oxygen Concentration - - Weight 102 kg (224 lb) 11/04/2021 12:00 PM EDT Height 180.3 cm (5' 11 ) 11/04/2021 12:00 PM EDT Body Mass Index 31.24 11/04/2021 12:00 PM EDT Plan of Treatment Not on file Insurance [employer]
--- OUTSIDE RECORDS SUMMARY | 2024-12-28 07:44 | XMS_ITS | Encounter Summary ---
Author Organization [facility] Sys tem Address [id number] [address] [place] [address] Care Team Providers Care Fitness Consultant Name Role Phone Josh Ospina Primary Care Provider Encounter Details Date Type Department Care Team (Late st Contact Info) Description 12/29/2023 Orders Only [facility] - Family Medicine [address] [place] [address] Ref Prov, [place] [address] Social History Tobacco Use Types Packs/Day Years Used Date Smoking Tobacco: Former Cigarettes 2 22.1 1 05/19/1973 - 05/09/1996 Smokeless Tobacco: Never Alcohol Use Standard Drinks/Week Comments Yes 0 (1 standard drink = 0.6 oz pur e alcohol) Occasional C Utilities Answer Date Recorded In the past 12 months has [employer], gas, oil, or water [employer] threatened to shut off services in [...] How often do you attend chur or mandaen services? More than 4 times per year 03/19/2022 Do you belong to any clubs o r organizations such as restorationism groups, unions, fraternal or athletic groups, or [...] Recorded Do you need help finding a [facility] career center and/or a training program? [...] - Family Medicine [address] [place] [address] Josh Ospina DO [address] [facility] [place] [place] [address] documented as of this encounter Procedures Procedure [...] documented as of this encounter Care Teams Fitness Consultant Relationship Specialty Start Date End Date Josh Ospina DO [address] [facility] [place] [address] PCP - General Family Medicine 03/19/22 documented as of this encounter
--- OUTSIDE RECORDS SUMMARY | 2024-12-28 07:44 | XMS_ITS | Encounter Summary ---
Author Organization [facility] Address [id number] [address] [place] [address] Care Team Providers Care Tufting Creeler Name Role Phone Josh Ospina Primary Care Provider Encounter Details Date Type Department Care Team (Late st Contact Info) Description 04/22/2024 Orders Only [facility] Internal Medicine - Family Medicine [address] [place] [address] Ref Prov, [place] [address] Social History Tobacco Use Types Packs/Day Years Used Date Smoking Tobacco: Former Cigarettes 2 22.1 1 05/19/1973 - 05/09/1996 Smokeless Tobacco: Never Alcohol Use Standard Drinks/Week Comments Yes 0 (1 standard drink = 0.6 oz pur e alcohol) Occasional C Utilities Answer Date Recorded In the past 12 months has [employer], gas, oil, or water [employer] threatened to shut off services in your [...] How often do you attend chur or protestant services? More than 4 times per year 03/19/2022 Do you belong to any clubs o r organizations such as latter day groups, unions, [...] Answer Date Recorded Total Score 0 06/25/2023 [facility] - Occupational [...] - Family Medicine [address] [place] [address] Josh Ospina DO [address] [facility] [place] [address] documented as of this encounter Procedures Procedure Name Priority Date/Time Associated Diagnosis Comments MULTIPLE LABS Routine 04/18/2024 10:25 AM EST documented in this encounter Results * Multiple labs (04/18/2024 10:25 AM EST) us Not In System Ref Prov MI IMAGING Final Res ult MANUALLY TRANSCRIBED RESULTS documented in this encounter Visit Diagnoses Not on filedocumented in this encounter Additional Health Concerns Assessment Noted Time PHQ-9 Depression Total Score: 0 06/25/19 24 9:56 AM EST documented as of this encounter Care Teams Tufting Creeler Relationship Specialty Start Date End Date Josh Ospina DO [address] [facility] [place] [address] PCP - General Family Medicine 03/19/22 documented as of this encounter
--- OUTSIDE RECORDS SUMMARY | 2024-12-28 07:44 | XMS_ITS | Encounter Summary ---
Author Organization [facility] Address [id number] [address] [place] [address] Care Team Providers Care Group Home Supervisor Name Role Phone LaraJosh alvarado Primary Care Provider [phone] Encounter Details Date Type Department Care Team (Late st Contact Info) Description 05/13/2022 Orders Only [facility] Internal Medicine - Family Medicine [address] [place] [address] External, Scanning Provider Social History Tobacco Use [...] often do you attend chur ch or orthodoxy services? More than 4 times per year 03/19/2022 Do you belong to any clubs o r organizations such as samaritan groups, unions, fraternal or athletic groups, or [...] Answer Date Recorded Total Score 1 03/19/2022 [facility]at ional Health - Occupational [...] Medicine - Family Medicine [address] [place] [address] Josh Ospina DO [address], [place] [address] documented as of this encounter Procedures Procedure [...] documented as of this encounter Care Teams Group Home Supervisor Relationship Specialty Start Date End Date Josh Ospina DO [address], [place] [address] PCP - General Family Medicine 03/19/22 documented as of this encounter
--- OUTSIDE RECORDS SUMMARY | 2024-12-28 07:44 | XMS_ITS | Encounter Summary ---
Author Organization [facility] Address [id number] [address] [place] [address] Care Team Providers Care Senior Editor Name Role Phone Josh Ospina DO Primary Care Provider [phone] Reason for Visit * Reason Comments Med Refill Encounter Details Date Type Department Care Team (Late st Contact Info) Description 10/28/2022 Refill [facility] - Family Medicine [address] [place] [address] Josh Ospina DO [address], [place] [address] Diabetic polyneuropathy associated with type 2 diabetes mellitus ([facility]) Social History Tobacco Use Types Packs/Day Years [...] often do you attend chur ch or synagogue services? More than 4 times per year 03/19/2022 Do you belong to any clubs o r organizations such as anabaptist groups, unions, fraternal or athletic groups, or [...] Answer Date Recorded Total Score 0 09/17/2022 [facility] [...] Recorded Do you need help finding a [facility] career [facility] and/or a training [...] Medicine - Family Medicine [address] [place] [address] Josh Ospina DO [address] [place] [address] documented as of this encounter Visit Diagnoses Diagnosis Diabetic polyneuropathy associated with type 2 diabetes mellitus ([facility]) documented in this encounter Additional Health Concerns Assessment Noted Time PHQ-9 Depression Total Score: 0 09/18/19 23 9:59 AM EDT documented as of this encounter Care Teams Senior Editor Relationship Specialty Start Date End Date Josh Ospina DO [address] [place] [address] PCP - General Family Medicine 03/19/22 documented as of this encounter
--- OUTSIDE RECORDS SUMMARY | 2024-12-28 07:44 | XMS_ITS | Encounter Summary ---
Author Organization [facility] Address [id number] [address] [place] [address] Care Team Providers Care Executive Assistant To General Counsel Name Role Phone Josh Ospina Primary Care Provider Encounter Details Date Type Department Care Team (Late st Contact Info) Description 04/04/2024 Orders Only [facility] Medicine - Family Medicine [address] [place] [address] Ref Prov, [place] [address] Social History Tobacco Use Types Packs/Day Years Used Date Smoking Tobacco: Former Cigarettes 2 22.1 1 05/19/1973 - 05/09/1996 Smokeless Tobacco: Never Alcohol Use Standard Drinks/Week Comments Yes 0 (1 standard drink = 0.6 oz pur e alcohol) Occasional C Utilities Answer Date Recorded In the past 12 months has [employer], gas, oil, or water [employer] threatened to shut off services in your [...] How often do you attend chur or christianity services? More than 4 times per year 03/19/2022 Do you belong to any clubs o r organizations such as temple groups, unions, fraternal or athletic groups, or [...] Answer Date Recorded Total Score 0 06/25/2023 [facility] ional Health - Occupational [...] Recorded Do you need help finding a [facility] career center and/or a training [...] - Family Medicine [address] [place] [address] Josh Ospina DO [address] [facility] [place] [address] documented as of this encounter Procedures Procedure Name Priority Date/Time Associated Diagnosis Comments DIABETES EYE EXAM Routine 04/01/2024 3:15 PM EST documented in this encounter Results * HM DIABETES EYE EXAM (04/01/2024 3:15 PM EST) us Not In System Ref Prov HEALTH MAINTENANCE Final Result MANUALLY TRANSCRIBED RESULTS documented in this encounter Visit Diagnoses Not on filedocumented in this encounter Additional Health Concerns Assessment Noted Time PHQ-9 Depression Total Score: 0 06/25/19 24 9:56 AM EST documented as of this encounter Care Teams Executive Assistant To General Counsel Relationship Specialty Start Date End Date Josh Ospina DO [address] [facility] [place] [address] PCP - General Family Medicine 03/19/22 documented as of this encounter
--- OUTSIDE RECORDS SUMMARY | 2024-12-28 07:44 | XMS_ITS | Clinical Summary ---
Author Organization [employer] tem Address [id number] [address] [place] [address] Care Team Providers Care Tobacco Farmworker Name Role Phone Josh Ospina Primary Care Provider Allergies Active Allergy Reactions Criticality Noted Date Comments Ticagrelor 03/19/2022 Medications verapamil SR (CALAN-SR) 240 mg CR tablet Take 1 tablet (240 mg total) by mouth in the morning. 2 Active tamsulosin (FLOMAX) 0.4 mg capsule Active ramipriL (ALTACE) 10 mg capsule Take 1 capsule (10 mg total) by mouth in the morning. 2 Active nitroglycerin (NITROSTAT) 0.4 MG SL tablet Active hydrOXYchloroQU INE (PLAQUENIL) 200 mg tablet Take 1 tablet (200 mg total) by mouth in the morning and 1 tablet (200 mg total) before bedtime. 2 Active fluticasone propionate (FLONASE) 50 mcg/actuation nasal spray Active clopidogreL (PLAVIX) 75 mg tablet Take 1 tablet (75 mg total) by mouth in the morning. 2 Active rosuvastatin (CRESTOR) 10 mg tablet rosuvastatin 10 mg tablet take 1 tablet by mouth at bedtime 3 Active SITagliptin phosphate (JANUVIA) 100 mg tablet take 1 tablet by mouth once daily 90 tablet 1 4 Active testosterone cypionate (DEPOTESTOTERON E CYPIONATE) 200 mg/mL injection Active meloxicam (MOBIC) 7.5 mg tablet Take 1 tablet (7.5 mg total) by mouth in the morning. 4 Active dapagliflozin propanediol (FARXIGA) 10 mg tablet Take 1 tablet (10 mg total) by mouth in the morning. 30 tablet 5 5 Active lancing device with lancets (ACCU-CHEK FASTCLIX LANCING DEV) kitIndications: Type 2 diabetes mellitus with diabetic polyneuropathy, without long-term current use of insulin ([facility]) Accu-Chek FastClix Lancing Device 1 each 3 5 Active lancets (ACCU-CHEK FASTCLIX LANCET DRUM) miscIndications :Type 2 diabetes mellitus with diabetic polyneuropathy, without long-term current use of insulin ([facility]) Accu-Chek Fastclix Lancet Drum USE ONCE DAILY DIRECTED 100 each 3 5 Active lancets (ACCU-CHEK FASTCLIX LANCET DRUM) misc Accu-Chek Fastclix Lancet Drum USE ONCE DAILY DIRECTED 100 each 3 5 Active Additional Information Patient not taking.Reported on 10/31/2024 metFORMIN (GLUCOPHAGE) 500 mg tablet Take 2 tablets (1,000 mg total) by mouth in the morning and 2 tablets (1,000 mg total) in the evening. Take with meals. 360 tablet 1 5 Active dutasteride (AVODART) 0.5 mg capsule Take 1 capsule (0.5 mg total) by mouth. 5 Active blood sugar diagnostic (glucose blood) stripIndication s:Type 2 diabetes mellitus with diabetic polyneuropathy, without long-term current use of insulin ([facility]) 1 strip by other route in the morning. 100 strip 3 5 Active blood-glucose meter miscIndications :Type 2 diabetes mellitus with diabetic polyneuropathy, without long-term current use of insulin ([facility]) Use daily as directed 1 each 5 Active Active Problems Problem Noted Date Diagnosed [...] Encounters Date Type Department Care Team Description 11/01/2024 Orders Only [facility] - Family Medicine [address] [place] [address] Josh Ospina DO Type 2 diabetes mellitus with diabetic polyneuropathy, without long-term current use of insulin ([facility]) (Primary Dx) 11/01/2024 Telephone [facility] - Family Medicine [address] [place] [address] Bonnie Coyle CMA 10/31/2024 9:00 AM EDT Office Visit [facility] - Family Medicine [address] [place] [address] Josh Ospina DO Type 2 diabetes mellitus with diabetic polyneuropathy, without long-term current use of insulin ([facility]) (Primary Dx); Essential hypertension; Class 1 obesity due to excess calories with serious comorbidity and body mass index (BMI) of 30.0 to 30.9 in adult; Hyperlipidemia, unspecified hyperlipidemia type; Peripheral vascular disease; Thrombocytopenia 10/31/2024 Travel from Last 3 Months Immunizations Immunization Administration [...] = 0.6 oz pur e alcohol) Occasional [employer] Utilities Answer Date Recorded In the past 12 months has [employer], [employer], oil, or water [employer] threatened to shut off services in your [...] do you attend [facility] or mandaen services? More than 4 times per year 03/19/2022 Do you belong to any clubs o r organizations such as confucianism groups, unions, fraternal or athletic groups, or [...] PHQ-2 Answer Date Recorded Total Score 0 10/31/2024 [facility] - Occupational Stress Questionnaire Answer Date [...] to strenuous exercise (like a brisk walk)? 6 days 10/31/2024 On average, how many minutes do you engage in exercise at this level? 20 min 10/31/2024 PRAPARE - Transportation Answer Date Re corded [...] Recorded Do you need help finding a [facility] career center and/or a training program? No 03/19/2022 Hunger Screening Answer Date Recorded Within the past 12 months we worried whether our food would run out before we got money to buy more. Never True 10/31/2024 Within the past 12 months th e food we bought just didn't last and we didn't have money to get more. Never True 10/31/2024 Purpose - Life Answer Date Recorded I have a purpose and direction in my life. Stron gly Agree 03/19/2022 Sex and Gender Information Value Date Recorded Sex Assigned at Not on file Legal Sex Male 11:56 AM EDT Gender Identity Not on file Sexual Orientation Not on file Last Filed Vital Signs Vital Sign Reading Time Taken Comments Blood Pressure 115/52 10/31/2024 9:00 AM EDT Pulse 61 10/31/2024 9:00 AM EDT Temperature 36.7 C (98 F) 10/31/2024 9:00 AM EDT Respiratory Rate 20 10/31/2024 9:00 AM EDT Oxygen Saturation 96% 10/31/2024 9:00 AM EDT Inhaled Oxygen Concentration - - Weight 105.7 kg (233 lb) 10/31/2024 9:00 AM EDT Height 185.4 cm (6' 0.99 ) 10/31/2024 9:00 AM ED T Body Mass Index 30.75 10/31/2024 9:00 AM EDT Plan of Treatment Upcoming Encounters Date Type Department Care Team (Late st Contact Info) Description 05/03/2025 9:30 AM EST Office Visit [facility] - Family Medicine [address] [place] [address] Josh Ospina DO [address], [place] [address] Health Maintenance Due Date Last Done Comments Statin Use: Diabetic 1955 Medicare Annual Wellness Visit 09/18/2023 09/17/2022 COVID-19 Vaccine ( season) 2024 08/05/2020, 07/18/2020, 07/18/2020, Additional history exists Diabetic Foot Exam 05/04/2024 05/04/2023, 05/04/2023 DTaP,Tdap and Td Vaccines (2 - Td or Tdap) 07/04/2024 07/04/2014 Influenza Vaccine 01/16/2025 03/23/2024, , 02/05/2023, Additional history exists Diabetic Ophthalmology Exam 04/01/2025 04/01/2024, 1 07/14/2021 Adult BMI Follow Up Plan 10/31/2025 10/31/2024 Adult BMI Screening 10/31/2025 10/31/2024 Depression Screening 10/31/2025 10/31/2024 Fall Risk Screening 10/31/2025 10/31/2024 Tobacco Screening 10/31/2025 10/31/2024 Colon Cancer Screening 5 Year Sigmoidoscopy 04/08/2029 Postponed from 10/19/2000 (Not Indicated) Zoster (Shingles) Vaccine Completed 06/29/2019, 04/2019 Abdominal Aortic Aneurysm (AAA) Screen Completed 01/05/2023 Medical Devices Not on file Procedures Procedure Name Priority Date/Time Associated Diagnosis Comments DIABETES EYE EXAM Routine 04/01/2024 3:15 PM EST [employer], [employer] Routine 2022 12:25 PM EDT from Last 3 Months or Most Recently Relevant to Health Maintenance Results * DIABETES EYE EXAM (04/01/2024 3:15 PM EST) us Not In System Ref Prov HEALTH MAINTENANCE Final Result MANUALLY TRANSCRIBED RESULTS * Take the Interview, [employer], [employer] (01/05/2023 12:25 PM EDT) us Scanning Provider External PROCEDURE/MINOR SURGI OSMANI ORDERABLES Final Result MANUALLY TRANSCRIBED RESULTS from Last 3 Months or Most Recently Relevant to Health Maintenance Insurance MEDICARE [facility] Care Teams Tobacco Farmworker Relationship Specialty Start Date End Date Josh Ospina DO [address], [place] [address] PCP - General Family Medicine 03/19/22
--- OUTSIDE RECORDS SUMMARY | 2024-12-28 07:44 | XMS_ITS | Encounter Summary ---
Author Organization [facility] Address [address] [place] [address] Phone Care Team Providers Care Assessment Consultant Name Role Phone Josh Ospina DO Primary Care Provider Encounter Details Date Type Department Care Team (Late st Contact Info) Description 03/17/2023 Scanned Document [facility] [address] [place] [phone] Scanning, Generic Provider Social History Tobacco Use [...] Description 09/20/2025 8:40 AM EDT Office Visit [facility] [address] [facility] [address] [place] [address] Jade Gale MD [address] [facility] [address] [place] [address] documented as of this encounter Visit Diagnoses Not on filedocumented in this encounter Care Teams Assessment Consultant Relationship Specialty Start Date End Date Josh Ospina DO PCP - General 05/18/99 documented as of this encounter
--- OUTSIDE RECORDS SUMMARY | 2024-12-28 07:44 | XMS_ITS | Clinical Summary ---
Author Organization [facility] Address [address] [place] [address] Phone Care Team Providers Care 911 Dispatcher Name Role Phone Josh Ospina Primary Care [...] by mouth once daily. 07/10/19 21 Active rosuvastatin (Crestor) 10 mg tabletIndications :Mixed [...] daily. 90 capsule 3 08/16/19 25 Active verapamil SR (Calan-SR) 240 mg ER tabletIndications :Essential hypertension Take 1 tablet (240 mg) by mouth once daily. 90 tablet 3 11/08/19 25 2025 Active dutasteride (Avodart) 0.5 mg capsule Take 1 capsule (0.5 mg) by mouth once daily. Active clopidogrel (Plavix) 75 mg tabletIndications :ASCVD (arteriosclerotic cardiovascular disease) Take 1 tablet (75 mg) by mouth once daily. 90 tablet 3 12/28/19 25 2025 Active clopidogrel (Plavix) 75 mg tabletIndications :ASCVD (arteriosclerotic cardiovascular disease) Take 1 tablet (75 mg) by mouth once daily. 90 tablet 3 01/12/20 24 2024 Disconti nued(Reo rder) Active Problems Problem Noted Date Diagnosed Date Obesity (BMI 30-39.9) 03/22/2024 Former smoker 06/18/2023 ASCVD (arteriosclerotic cardiovascular disease) 05/26/2023 Diabetes mellitus (Multi) 05/26/2023 Essential hypertension 05/26/2023 Hyperlipidemia 05/26/2023 Peripheral vascular disease 05/26/2023 Sleep apnea 05/26/2023 Femoral bruit 05/26/2023 Encounters Date Type Department Care Team Description 12/27/2024 8:50 AM EDT Office Visit [address] [address] Pattie Gale MD ASCVD (arteriosclerotic cardiovascular disease) (Primary Dx); Peripheral vascular disease; Essential hypertension; Mixed hyperlipidemia; Other specified diabetes mellitus without complication, without long-term current use of insulin; Obstructive sleep apnea syndrome; Former smoker; Obesity (BMI 30-39.9); Intermittent claudication Discharge Disposition: Home 12/27/2024 Travel 11/07/[address] [phone] Pattie Gale MD Essential hypertension from Last 3 Months Immunizations [...] Mass Index 30.64 12/27/2024 8:51 AM EDT Plan of Treatment Upcoming Encounters Date Type Department Care Team (Late st Contact Info) Description 09/20/2025 8:40 AM EDT Office Visit [facility] [address] [facility] [address] [place] [address] Pattie Gale MD [address] [facility] [address] [place] [address] Health Maintenance Due Date Last Done Comments CT Colonography 1955 Diabetes: Hemoglobin A1C 1955 FIT-DNA (Cologuard) 1955 FIT 1955 Lipid Panel 1955 Medicare Annual Wellness Visit (AWV) 1955 Sigmoidoscopy 1955 MMR Vaccines (1 of 1 - Standard series) 10/19/1956 Hepatitis C Screening 10/19/1973 PSA Prostate Cancer Screening 10/19/2005 RSV High Risk: (Elderly (60+) or Population) (1 - Risk 60-74 years 1-dose series) 2015 COVID-19 Vaccine ( season) 2024 02/18/2021, 08/05/2020, 07/18/2020, Additional history exists Diabetes: Urine Protein Screening 05/04/2024 05/04/2023 DTaP/Tdap/Td Vaccines (2 - Td or Tdap) 07/04/2024 07/04/2014 Influenza Vaccine (#1) 2025 , 03/16/2024, 02/05/2023, Additional history exists Diabetes: Retinopathy Screening 04/01/2026 04/01/2024, 05/13/2022 Colonoscopy 05/04/2034 05/04/2024, 04/07/2014 Colorectal Cancer Screening 05/04/2034 Irritable Bowel Syndrome Discontinued 04/07/2014 Zoster Vaccines Completed 06/29/2019, 04/28/2019 Pneumococcal Vaccine Completed 04/14/2022, 05/08/2020, 07/04/2014 Abdominal Aortic Aneurysm (AAA) Screening Completed 01/05/2023 HIB Vaccines Aged Out No longer eligi [...] AM EDT Narrative 01/06/2023 5:29 PM EDT [address], [address] [address] Vascular Lab Report Abdominal Aorta Iliac Ultrasound/IVC Ultrasound Patient Name: MIKE Land MISHEL Flor Physician: [id number] Pattie Gale MD, FACC Study Date: 01/05/2023 Referring PATTIE GALE Physician: MRN/PID: [id number] PCP: Josh Ospina MD Accession/Order#: [id number] CC Report to: Date of : 1955 Technologist: Deidre Jimenez RDCS, T Gender: M Technologist 2: Admission Status: Outpatient Location Performed: [facility] Diagnosis/ICD: [id number] primary hypertension; R09.89-Bruit; I73.9-Peripheral vascular disease, unspecified Indication: ASCVD, Former Smoker, [employer]-2008, Hyperlipidemia, Diabetes, ROCK, Overweight, PTCA-2004 and 2016 Procedure/CPT: 56000 Ultrasound, abdominal aorta, real time with image documentation, screening study for (AAA)-35186 CONCLUSIONS: Aorta/Common Iliac Arteries/IVC: No evidence of abdominal aortic aneurysm. Imaging & Doppler Findings: AORTA AP Lateral PSV Proximal 1.49 cm 1.36 cm 101.0 cm/s Mid 1.55 cm 1.43 cm 97.0 cm/s Distal 1.57 cm 1.51 cm 72.0 cm/s RIGHT AP Lateral PSV FRANCISCO Proximal 1.08 cm 0.81 cm 147.00 cm/s LEFT AP Lateral PSV FRANCISCO Proximal 0.83 cm 0.96 cm 94.00 cm/s [id number] Ptatie Gale MD, FACC Final Procedure Note Pattie Gale MD - 01/06/[address], [address], [place] [address] Vascular Lab Report Abdominal Aorta Iliac Ultrasound/IVC Ultrasound Patient Name: MIKE ENGSZ Reading Physician: [id number] Pattie Lee FACC Study Date: 01/05/2023 Referring PATTIE GALE Physician: MRN/PID: [id number] PCP: Josh Ospina MD Accession/Order#: [id number] CC Report to: Date of : 1955 Technologist: Deidre Jimenez RDCS,T Gender: M Technologist 2: Admission Status: Outpatient Location Performed: [facility] Diagnosis/ICD: F32-Bfigdupsu primary hypertension; R09.89-Bruit; I73.9-Peripheral vascular disease, unspecified Indication: ASCVD, Former Smoker, [employer]-2008, Hyperlipidemia,Diabetes, ROCK, Overweight, PTCA-2004 and 2016 Procedure/CPT: 07999 Ultrasound, abdominal aorta, real time with image documentation, screening study for (AAA)-80848 CONCLUSIONS: Aorta/Common Iliac Arteries/IVC: No evidence of abdominal aorticaneurysm. Imaging & Doppler Findings: AORTA AP Lateral PSV Proximal 1.49 cm 1.36 cm 101.0 cm/s Mid 1.55 cm 1.43 cm 97.0 cm/s Distal 1.57 cm 1.51 cm 72.0 cm/s RIGHT AP Lateral PSV FRANCISCO Proximal 1.08 cm 0.81 cm 147.00 cm/s LEFT AP Lateral PSV FRANCISCO Proximal 0.83 cm 0.96 cm 94.00 cm/s [id number] Pattie Gale MD, FACC at5:29:20 PM Final us Pattie Gale MD CV VASCULAR PROCEDURES Final Result * COLONOSCOPY (04/07/2014) Anatomical Region Laterality Modality Endoscopy Narrative 04/07/2014 Ordered by an unspecified provider. us Onbase Conversion ENDOSCOPY PROCEDURE ORDERABLES Final Result from Last 3 Months or Most Recently Relevant to Health Maintenance Insurance MEDICARE PART A AND B [employer] MEDICARE SUPPLEMENT MEDICARE PART A AND B Member Subscriber Plan / Payer (Ef fective 2022-Present) Name:Mike Muñiz Member ID:[id number] Relation to Subscriber:Self Name:Mike Muñiz Subscriber ID:[id number] Payer ID:Not on file Group ID:Not on file Type:Not on file Address: [address] MEDICARE SUPPLEMENT Care Teams 911 Dispatcher Relationship Specialty Start Date End Date Josh Ospina DO PCP - General 05/18/99
--- OUTSIDE RECORDS SUMMARY | 2024-12-28 07:44 | XMS_ITS | Encounter Summary ---
Author Organization [employer] s tem Address [facility]-[id number] [address] [place] [address] Care Team Providers Care Relationship Advisor Name Role Phone Josh Ospina DO Primary Care Provider [phone]- [phone] Encounter Details Date Type Department Care Team (Late Contact Info) Description 02/13/2022 Orders Only [facility] - Family Medicine [address] [place] [address] External, Scanning Provider Social History Tobacco Use [...] - Family Medicine [address] [place] [address] Josh Ospina DO [address] [facility] [place] [address] documented as of this encounter Visit Diagnoses Not on filedocumented in this encounter Care Teams Relationship Advisor Relationship Specialty Start Date End Date Josh Ospina DO [address] [facility], [place] [address] PCP - General Family Medicine 03/19/22 documented as of this encounter
--- OUTSIDE RECORDS SUMMARY | 2024-12-28 07:44 | XMS_ITS | Encounter Summary ---
Author Organization [facility] tem Address [id number] [address] [place] [address] Care Team Providers Care Technical Communication Teacher Name Role Phone Josh Ospina DO Primary Care Provider [phone] Encounter Details Date Type Department Care Team (Late st Contact Info) Description 05/04/2024 Orders Only [facility] - Family Medicine [address] [place] [address] Josh Ospina DO [address], [facility] [address] Social History Tobacco Use Types Packs/Day Years Used Date Smoking Tobacco: Former Cigarettes 2 22.1 1 05/19/1973 - 05/09/1996 Smokeless Tobacco: Never Alcohol Use Standard Drinks/Week Comments Yes 0 (1 standard drink = 0.6 oz pur e alcohol) Occasional C Utilities Answer Date Recorded In the past 12 months has [employer], gas, oil, or water [employer] threatened to shut off services in your [...] week 03/19/2022 How often do you attend [facility] or church services? More than 4 times per year 03/19/2022 Do you belong to any clubs o r organizations such as christian groups, unions, fraternal [...] Answer Date Recorded Total Score 0 05/02/2024 [facility] of Occupat ional Health - Occupational Stress [...] Recorded Do you need help finding a [facility] career center and/or a training program? [...] - Family Medicine [address] [place] [address] Josh Ospina DO [address] [place] [address] documented as of this encounter Procedures Procedure Name Priority Date/Time Associated Diagnosis Comments HM COLONOSCOPY Routine 05/04/2024 1:55 PM EST documented in this encounter Visit Diagnoses Not on filedocumented in this encounter Additional Health Concerns Assessment Noted Time PHQ-9 Depression Total Score: 0 05/02/20 24 9:32 AM EST documented as of this encounter Care Teams Technical Communication Teacher Relationship Specialty Start Date End Date Josh Ospina DO [address] [address] PCP - General Family Medicine 03/19/22 documented as of this encounter
--- OUTSIDE RECORDS SUMMARY | 2024-12-28 07:44 | XMS_ITS | Encounter Summary ---
Author Organization [facility] tem Address [id number] [address] [place] [address] Care Team Providers Care Soap Worker Name Role Phone Josh Ospina Primary Care Provider [phone] Encounter Details Date Type Department Care Team (Late st Contact Info) Description 04/22/2024 Orders Only [facility] - Family Medicine [address] [facility] [place] [address] Bonnie Coyle CMA Type 2 diabetes mellitus with diabetic polyneuropathy, without long-term current use of insulin ([facility]) Social History Tobacco Use Types Packs/Day Years Used Date Smoking Tobacco: Former Cigarettes 2 22.1 1 05/19/1973 - 05/09/1996 Smokeless Tobacco: Never Alcohol Use Standard Drinks/Week Comments Yes 0 (1 standard drink = 0.6 oz pur e alcohol) Occasional [employer] Utilities Answer Date Recorded In the past 12 months has [employer], gas, oil, or water [employer] threatened to shut off services in your [...] How often do you attend chur or jew services? More than 4 times per year [...] - Family Medicine [address] [place] [address] Josh Ospina DO [address], [facility] [address] documented as of this encounter Procedures Procedure Name Priority Date/Time Associated Diagnosis Comments HEMOGLOBIN A1C Routine 04/18/2024 Type 2 diabetes mellitus with diabetic polyneuropathy, without long-term current use of insulin ([facility]) documented in this encounter Results * Hemoglobin A1c (04/18/2024) External Hemoglobin A1C 6.7 % MANUALLY TRANSCRIBED RESULTS Blood 04/18/2024 us Josh Ospina DO LAB BLOOD ORDERABLES Final R esult MANUALLY TRANSCRIBED RESULTS documented in this encounter Visit Diagnoses Diagnosis Type 2 diabetes mellitus with diabetic polyneuropathy, without long-term current use of insulin ([facility]) documented in this encounter Additional Health Concerns Assessment Noted Time PHQ-9 Depression Total Score: 0 06/25/19 24 9:56 AM EST documented as of this encounter Care Teams Soap Worker Relationship Specialty Start Date End Date Josh Ospina DO [address], [facility] [address] PCP - General Family Medicine 03/19/22 documented as of this encounter
--- OUTSIDE RECORDS SUMMARY | 2024-12-28 07:44 | XMS_ITS | Encounter Summary ---
Author Organization [facility] tem Address [id number] [address] [place] [address] Care Team Providers Care Parking Regulation Enforcement Officer Name Role Phone Josh Ospina Primary Care Provider Encounter Details Date Type Department Care Team (Late st Contact Info) Description 12/18/2023 Orders Only [facility] - Family Medicine [address] [place] [address] Ref Prov, [place] [address] Social History Tobacco Use Types Packs/Day Years Used Date Smoking Tobacco: Former Cigarettes 2 22.1 1 05/19/1973 - 05/09/1996 Smokeless Tobacco: Never Alcohol Use Standard Drinks/Week Comments Yes 0 (1 standard drink = 0.6 oz pur e alcohol) Occasional C Utilities Answer Date Recorded In the past 12 months has [employer], gas, oil, or water [employer] threatened to shut off services in your [...] How often do you attend chur or church services? More than 4 times per year 03/19/2022 Do you belong to any clubs o r organizations such as roman catholic groups, unions, fraternal or athletic groups, [...] Answer Date Recorded Total Score 0 06/25/2023 [facility] of Occupat ional Health - [...] - Family Medicine [address] [place] [address] Josh Ospina DO [address] [facility] [place] [address] documented as of this encounter Procedures Procedure [...] documented as of this encounter Care Teams Parking Regulation Enforcement Officer Relationship Specialty Start Date End Date Josh Ospina DO [address] [facility], [place] [address] PCP - General Family Medicine 03/19/22 documented as of this encounter
--- OUTSIDE RECORDS SUMMARY | 2024-12-28 07:44 | XMS_ITS | Encounter Summary ---
Author Organization [facility] tem Address [facility]-[id number] [address] [place] [address] Care Team Providers Care Plastics Sheet Finishing Press Operator Name Role Phone aLraJosh alvarado Primary Care Provider [phone]- [phone] Encounter Details Date Type Department Care Team (Late st Contact Info) Description 09/17/2022 Orders Only [facility] - Family Medicine [address] [place] [address] External, Scanning Provider Social History Tobacco Use [...] often do you attend chur ch or mormonism services? More than 4 times per year 03/19/2022 Do you belong to any clubs o r organizations such as baptism groups, unions, fraternal or athletic groups, or [...] Answer Date Recorded Total Score 0 09/17/2022 [facility] - Occupational Stress Questionnaire Answer Date Recorded [...] Recorded Do you need help finding a [facility] and/or a training program? [...] Medicine - Family Medicine [address] [place] [address] Josh Ospina DO [address], [place] [address] documented as of this encounter Procedures Procedure [...] documented as of this encounter Care Teams Plastics Sheet Finishing Press Operator Relationship Specialty Start Date End Date Josh Ospina DO [address] [facility] [place] [address] PCP - General Family Medicine 03/19/22 documented as of this encounter
--- OUTSIDE RECORDS SUMMARY | 2024-12-28 07:44 | XMS_ITS | Encounter Summary ---
Author Organization [facility] Address [id number] [address] [place] [address] Care Team Providers Care Marketing Strategist Name Role Phone Josh Ospina DO Primary Care Provider [phone]- [phone] Reason for Visit * Reason Comments Med Refill Encounter Details Date Type Department Care Team (Late st Contact Info) Description 07/19/2022 Refill [facility] - Family Medicine [address] [place] [address] Josh Ospina DO [address], [facility] [place] [address] Diabetic polyneuropathy associated with type 2 diabetes mellitus ([facility]) (Primary Dx) Social History Tobacco Use Types [...] week 03/19/2022 How often do you attend [facility] or holiness services? More than 4 times per year 03/19/2022 Do you belong to any clubs o r organizations such as denominational groups, unions, fraternal or athletic groups, or [...] Answer Date Recorded Total Score 1 03/19/2022 [facility] of Occupat ional Health - Occupational Stress [...] Recorded Do you need help finding a [facility] career [facility] and/or a training program? No [...] Medicine [address] [place] [address] Josh Ospina DO [address], [facility] [place] [address] documented as of this encounter Visit Diagnoses Diagnosis Diabetic polyneuropathy associated with type 2 diabetes mellitus ([facility] Primary documented in this encounter Additional Health Concerns Assessment Noted Time PHQ-9 Depression Total Score: 1 03/19/20 22 10:20 AM EDT documented as of this encounter Care Teams Marketing Strategist Relationship Specialty Start Date End Date Josh Ospina DO [address] [facility] [place] [address] PCP - General Family Medicine 03/19/22 documented as of this encounter
--- OUTSIDE RECORDS SUMMARY | 2024-12-28 07:44 | XMS_ITS | Encounter Summary ---
Author Organization [facility] Address [address] [place] [address] Phone Care Team Providers Care Transfer Machine Operator Name Role Phone Josh Ospina DO Primary Care Provider Encounter Details Date Type Department Care Team (Late st Contact Info) Description 01/05/2023 Scanned Document [facility] LE[facility] [address] [place] [address] Conversion, Onbase Social History Tobacco Use Types [...] EDT Office Visit [facility] [address] [address] Jade Gale MD 703 [facility] [address] [place], [place] [address] documented as of this encounter Procedures Procedure Name Priority Date/Time Associated Diagnosis Comments OUTSIDE IMAGING SCAN 01/05/2023 documented in this encounter Results * OUTSIDE IMAGING SCAN (01/05/2023) Anatomical Region Laterality Modality Other Narrative 01/05/2023 Ordered by an unspecified provider. us Onbase Conversion OUTSIDE SCAN Final Result documented in this encounter Visit Diagnoses Not on filedocumented in this encounter Care Teams Transfer Machine Operator Relationship Specialty Start Date End Date Josh Ospina DO PCP - General 05/18/99 documented as of this encounter
--- OUTSIDE RECORDS SUMMARY | 2024-12-28 07:44 | XMS_ITS | Encounter Summary ---
Author Organization [facility] tem Address [id number] [address] [place] [address] Care Team Providers Care Preschool Lead Teacher Name Role Phone Josh Ospina DO Primary Care Provider [phone]- [phone] Encounter Details Date Type Department Care Team (Late st Contact Info) Description 06/19/2023 Orders Only [facility] Internal Medicine - Family Medicine [address] [place] [address] Josh Ospina DO [address], [facility] [place] [address] Social History Tobacco Use Types Packs/Day Years Used Date Smoking Tobacco: Former Cigarettes 2 22.1 1 05/19/1973 - 05/09/1996 Smokeless Tobacco: Never Alcohol Use Standard Drinks/Week Comments Yes 0 (1 standard drink = 0.6 oz pur e alcohol) Occasional C Utilities Answer Date Recorded In the past 12 months has [employer], gas, oil, or water [employer] threatened to shut off services in your [...] week 03/19/2022 How often do you attend [facility] or taoist services? More than 4 times per year 03/19/2022 Do you belong to any clubs o r organizations such as oriental orthodox groups, unions, [...] PHQ-2 Answer Date Recorded Total Score 0 05/04/2023 [facility] of Occupat ional Health - Occupational [...] Recorded Do you need help finding a [facility] career center and/or a training program? No 03/19/2022 Hunger Screening Answer Date Recorded Within the past 12 months we worried whether our food would run out before we got money to buy more. Never True 05/04/2023 Within the past 12 months th e food we bought just didn't last and we didn't have money to get more. Never True 05/04/2023 Purpose - Life Answer Date Recorded I [...] - Family Medicine [address] [place] [address] Josh Ospina DO [address] [facility] [place] [address] documented as of this encounter Procedures Procedure Name Priority Date/Time Associated Diagnosis Comments MULTIPLE LABS Routine 06/19/2023 10:45 AM EST documented in this encounter Results * Multiple labs (06/19/2023 10:45 AM EST) us Scanning Provider External NE IMAGING Final Result MANUALLY TRANSCRIBED RESULTS documented in this encounter Visit Diagnoses Not on filedocumented in this encounter Additional Health Concerns Assessment Noted Time PHQ-9 Depression Total Score: 0 05/04/20 23 3:18 PM EST documented as of this encounter Care Teams Preschool Lead Teacher Relationship Specialty Start Date End Date Josh Ospina DO [address] [facility] [place] [address] PCP - General Family Medicine 03/19/22 documented as of this encounter
--- OUTSIDE RECORDS SUMMARY | 2024-12-28 07:44 | XMS_ITS | Encounter Summary ---
Author Organization [facility] Address [id number] [address] [place] [address] Care Team Providers Care Supervisor Fleshing Name Role Phone Josh Ospina DO Primary Care Provider [phone]- [phone] Reason for Visit * Reason Comments Med Refill Encounter Details Date Type Department Care Team (Late st Contact Info) Description 03/19/2022 Refill [facility] - Family Medicine [address] [place] [address] Josh Ospina DO [address], [facility] [place] [address] Social History Tobacco Use Types Packs/Day Years [...] often do you attend chur ch or adventist services? More than 4 times [...] Answer Date Recorded Total Score 1 03/19/2022 [facility] of Occupat ional Health - [...] of Assessment Author 5 03/19/2022 11:04 AM EDT Josh Ospina DO * Question Answer Date of Assessment [...] occasion? Less than monthly 03/19/2022 11:04 AM EDT Josh Ospina DO documented as of this encounter Plan of Treatment Upcoming Encounters Date Type Department Care Team (Late st Contact Info) Description 05/03/2025 9:30 AM EST Office Visit [facility] - Family Medicine [address] [place] [address] Josh Ospina DO [address] [facility] [place] [address] documented as of this encounter Visit Diagnoses Not on filedocumented in this encounter Additional Health Concerns Assessment Noted Time PHQ-9 Depression Total Score: 1 03/19/20 10:20 AM EDT documented as of this encounter Care Teams Supervisor Fleshing Relationship Specialty Start Date End Date Josh Ospina DO [address] [facility] [place] [address] PCP - General Family Medicine 03/19/22 documented as of this encounter
--- OUTSIDE RECORDS SUMMARY | 2024-12-28 07:44 | XMS_ITS | Encounter Summary ---
Author Organization [facility] Address [address] [place] [address] Phone Care Team Providers Care Translator Name Role Phone Josh Ospina DO Primary Care Provider Encounter Details Date Type Department Care Team (Late st Contact Info) Description 09/17/2022 Orders Only [facility] LE[facility]Y [address] [place] [address] Conversion, Onbase Social History Tobacco Use Types [...] Description 09/20/2025 8:40 AM EDT Office Visit [facility] [address] [address] Jade Gale MD [address] [facility] [address] [place] [address] Scheduled Orders Name Type Priority Associated Diagnoses Orde r Schedule OUTSIDE LAB SCAN Lab Ordered: 09/17/2022 documented as of this encounter Visit Diagnoses Not on filedocumented in this encounter Care Teams Translator Relationship Specialty Start Date End Date Josh Ospina DO PCP - General 05/18/99 documented as of this encounter
--- OUTSIDE RECORDS SUMMARY | 2024-12-28 07:44 | XMS_ITS | Encounter Summary ---
Author Organization [facility] Address [address] [place] [address] Phone Care Team Providers Care Chairperson Anesthesiology Name Role Phone Josh Ospina DO Primary Care Provider Encounter Details Date Type Department Care Team (Late st Contact Info) Description 04/18/2024 Scanned Document [facility] [address] [place] [address] Scanning, Generic Provider Social History [...] 09/20/2025 8:40 AM EDT Office Visit [facility] [address] [facility] [address] [place] [address] Jade Gale MD 703 [facility] 2[address] [place] [address] documented as of this encounter [...] documented as of this encounter Care Teams Chairperson Anesthesiology Relationship Specialty Start Date End Date Josh Ospina DO PCP - General 05/18/99 documented as of this encounter
--- OUTSIDE RECORDS SUMMARY | 2024-12-28 07:44 | XMS_ITS | Encounter Summary ---
Author Organization [employer] [facility] tem Address [id number] [address] [place] [address] Care Team Providers Care Narcotics And Vice Detective Name Role Phone Josh Ospina DO Primary Care Provider [phone] Reason for Visit * Reason Comments Med Refill Encounter Details Date Type Department Care Team (Late Contact Info) Description 01/23/2022 Refill [facility] - Family Medicine [address] [place] [address] Josh Ospina DO [address] [place] [address] Social History Tobacco Use Types Packs/Day Years [...] Department Care Team (Late Contact Info) Description 05/03/2025 9:30 AM EST Office Visit [facility] - Family Medicine [address] [place] [address] Josh Ospina DO [address] [place] [address] documented as of this encounter Visit Diagnoses Not on filedocumented in this encounter Care Teams Narcotics And Vice Detective Relationship Specialty Start Date End Date Josh Ospina DO [address], [place] [address] PCP - General Family Medicine 03/19/22 documented as of this encounter
--- OUTSIDE RECORDS SUMMARY | 2024-12-28 07:44 | XMS_ITS | Encounter Summary ---
Author Organization [facility] Address [id number] [address] [place] [address] Care Team Providers Care Knot Tying Operator Name Role Phone Josh Ospina DO Primary Care Provider [phone]- [phone] Reason for Visit * Reason Comments Med Refill Encounter Details Date Type Department Care Team (Late st Contact Info) Description 04/28/2022 Refill [facility] - Family Medicine [address] [place] [address] Josh Ospina DO [address], [place] [address] Social History Tobacco Use Types Packs/Day Years [...] often do you attend chur ch or anabaptism services? More than 4 times per year [...] Answer Date Recorded Total Score 1 03/19/2022 [facility] of Occupat ional Health - Occupational [...] - Family Medicine [address] [place] [address] Josh Ospina DO [address] [facility] [place] [address] documented as of this encounter Visit Diagnoses Not on filedocumented in this encounter Additional Health Concerns Assessment Noted Time PHQ-9 Depression Total Score: 1 03/19/20 22 10:20 AM EDT documented as of this encounter Care Teams Knot Tying Operator Relationship Specialty Start Date End Date Josh Ospina DO [address] [facility] [place] [address] PCP - General Family Medicine 03/19/22 documented as of this encounter
--- OUTSIDE RECORDS SUMMARY | 2024-12-28 07:44 | XMS_ITS | Encounter Summary ---
Author Organization [facility] Address [id number] [address] [place] [address] Care Team Providers Care Assistant Associate Full Professor Name Role Phone Josh Ospina DO Primary Care Provider [phone] Reason for Visit * Reason Comments Med Refill Encounter Details Date Type Department Care Team (Late st Contact Info) Description 04/11/2022 Refill [facility] - Family Medicine [address] [place] [address] Josh Ospina DO [address], [facility] [place] [address] Social History Tobacco Use Types Packs/Day Years [...] any clubs o r organizations such as christianity groups, unions, fraternal or athletic groups, or [...] Answer Date Recorded Total Score 1 03/19/2022 [facility] of Occupat ional Health - Occupational [...] - Family Medicine [address] [place] [address] Josh Ospina DO [address] [facility] [place] [place] [address] documented as of this encounter Visit Diagnoses Not on filedocumented in this encounter Additional Health Concerns Assessment Noted Time PHQ-9 Depression Total Score: 1 03/19/20 22 10:20 AM EDT documented as of this encounter Care Teams Assistant Associate Full Professor Relationship Specialty Start Date End Date Josh Ospina DO [address] [facility] [place] [address] PCP - General Family Medicine 03/19/22 documented as of this encounter
--- OUTSIDE RECORDS SUMMARY | 2024-12-28 07:45 | XMS_ITS | Clinical Summary ---
Author Organization Jaylen Thompson [facility] Address [address], [address] [place] [address] Care Team Providers Care Licensed Mortgage Loan Officer Name Role Phone Josh Ospina DO Primary Care Provider + [phone] Social History Tobacco Use Types Packs/Day Years Used Date Smoking Tobacco: Never Assessed Sex and Gender Information Value Date Recorded Sex Assigned at Not on file Legal Sex Male 12:59 PM EST Gender Identity Not on file Sexual Orientation Not on file Plan of Treatment Not on file Insurance [employer] Care Teams Licensed Mortgage Loan Officer Relationship Specialty Start Date End Date Josh Ospina DO PCP - General 06/30/17
--- OUTSIDE RECORDS SUMMARY | 2024-12-28 07:45 | XMS_ITS | Encounter Summary ---
Author Organization [employer] [facility] Address [id number] [address] [place] [address] Care Team Providers Care Clerk Funeral Detail Name Role Phone Josh Ospina Primary Care Provider Encounter Details Date Type Department Care Team (Late st Contact Info) Description 11/01/2024 [facility]phone [facility] Internal [facility] - Family Medicine [address] [place] [address] Bonnie Coyle CMA Social History Tobacco Use Types Packs/Day Years Used Date Smoking Tobacco: Former Cigarettes 2 22.1 1 05/19/1973 - 05/09/1996 Smokeless Tobacco: Never Alcohol Use Standard Drinks/Week Comments Yes 0 (1 standard drink = 0.6 oz pur e alcohol) Occasional [facility] Utilities Answer Date Recorded In the past 12 months has [employer], gas, oil, or water company threatened to [...] How often do you attend chur or evangelical services? More than 4 times per year 03/19/2022 Do you belong to any clubs o r organizations such as hinduism groups, unions, fraternal or athletic groups, or [...] Answer Date Recorded Total Score 0 10/31/2024 [facility] ional [facility] - Occupational Stress Questionnaire Answer Date Recorded [...] Recorded Do you need help finding a [facility] career center and/or a training program? No [...] encounter Miscellaneous Notes * Telephone Encounter - Bonnie Coyle CMA - 11/01/2024 8:11 AM EDT Patient called the pharmacy to get refills on his test strips and his insurance will not pay for the strips. They told him he needs a new glucometer and strips. They need to be on his list. The pharmacy said to send an order for a glucometer and strips and they will give him the one that is coveredon his plan. documented in this encounter Plan of Treatment Upcoming Encounters Date Type Department Care Team (Late st Contact Info) Description 05/03/2025 9:30 AM EST Office Visit [facility] Internal Medicine - Family Medicine [address] [place] [address] Josh Ospina DO [address] [place] [address] documented as of this encounter Visit Diagnoses Not on filedocumented in this encounter Additional Health Concerns Assessment Noted Time PHQ-9 Depression Total Score: 0 11/01/19 25 8:59 AM EDT A Body Mass Index follow-up plan has been documented for the patient 10/31/2024 9:47 AM EDT documented as of this encounter Care Teams Clerk Funeral Detail Relationship Specialty Start Date End Date Josh Ospina DO [address] [place] [address] PCP - General Family Medicine 03/19/22 documented as of this encounter
--- OUTSIDE RECORDS SUMMARY | 2024-12-28 07:45 | XMS_ITS | Encounter Summary ---
Author Organization [facility] Address [id number] [place] [address] Care Team Providers Care Silver Chaser Name Role Phone Josh Ospina DO Primary Care Provider Encounter Details Date Type Department Care Team (Late st Contact Info) Description 06/26/2023 Orders Only [facility] Internal Medicine - Family Medicine [address] [place] [address] Josh Ospina DO [address], [facility] [place] [address] Social History Tobacco Use Types Packs/Day Years Used Date Smoking Tobacco: Former Cigarettes 2 22.1 1 05/19/1973 - 05/09/1996 Smokeless Tobacco: Never Alcohol Use Standard Drinks/Week Comments Yes 0 (1 standard drink = 0.6 oz pur e alcohol) Occasional C Utilities Answer Date Recorded In the past 12 months has [employer], gas, oil, or water [employer] threatened to shut off services in your [...] week 03/19/2022 How often do you attend [facility] or anabaptism services? More than 4 times per year 03/19/2022 Do you belong to any clubs o r organizations such as taoism groups, unions, fraternal or athletic groups, or [...] Answer Date Recorded Total Score 0 06/25/2023 [facility] of Occupat ional Health - Occupational Stress [...] Recorded Do you need help finding a [facility] career center and/or a training program? No [...] - Family Medicine [address] [place] [address] Josh Ospina DO [address] [facility] [place] [address] documented as of this encounter Visit Diagnoses Not on filedocumented in this encounter Additional Health Concerns Assessment Noted Time PHQ-9 Depression Total Score: 0 06/25/19 24 9:56 AM EST documented as of this encounter Care Teams Silver Chaser Relationship Specialty Start Date End Date Josh Ospina DO [address] [facility] [address] PCP - General Family Medicine 03/19/22 documented as of this encounter
--- OUTSIDE RECORDS SUMMARY | 2024-12-28 07:45 | XMS_ITS | Encounter Summary ---
Author Organization [facility] Address [id number] [place] [address] Care Team Providers Care Hyperbaric Welder Diver Name Role Phone Josh Ospina Primary Care Provider [phone] Encounter Details Date Type Department Care Team (Late st Contact Info) Description 06/30/2023 Orders Only [facility] Internal Medicine - Family Medicine [address] [place] [address] External, Scanning Provider Social History Tobacco Use Types Packs/Day Years Used Date Smoking Tobacco: Former Cigarettes 2 22.1 1 05/19/1973 - 05/09/1996 Smokeless Tobacco: Never Alcohol Use Standard Drinks/Week Comments Yes 0 (1 standard drink = 0.6 oz pur e alcohol) Occasional AHC Utilities Answer Date Recorded In the past 12 months has [employer], gas, oil, or water company threatened [...] often do you attend chur ch or jain services? More than 4 times per year 03/19/2022 Do you belong to any clubs o r organizations such as adventist groups, unions, fraternal or athletic groups, or [...] [facility] Questionnaire Answer Date [...] Medicine - Family Medicine [address] [place] [address] Josh Ospina DO [address] [facility] [place] [address] documented as of this encounter Procedures Procedure Name Priority Date/Time Associated Diagnosis Comments MULTIPLE LABS Routine 06/19/2023 10:39 AM EST documented in this encounter Results * Multiple labs (06/19/2023 10:39 AM EST) us Scanning Provider External IN IMAGING Final Result MANUALLY TRANSCRIBED RESULTS documented in this encounter Visit Diagnoses Not on filedocumented in this encounter Additional Health Concerns Assessment Noted Time PHQ-9 Depression Total Score: 0 06/25/19 24 9:56 AM EST documented as of this encounter Care Teams Hyperbaric Welder Diver Relationship Specialty Start Date End Date Josh Ospina DO [address] [place] [address] PCP - General Family Medicine 03/19/22 documented as of this encounter
--- OUTSIDE RECORDS SUMMARY | 2024-12-28 07:45 | XMS_ITS | CCD ---
Author Organization [facility] CliniSynh Care Team Providers Care Retail Team Leader Name Role Phone EILEEN PURVIS Unavailable Unavai labJOSH Duong Unavailable Unavailable Laralogregg, Josh Mccord Unavailable Unavailable Unavailable Unavailable Unavailable Baljinder, Dr. Jade Sanz Attending Shantel vailable [facility] ([facility])gregg, Josh Saulo Primary Care Unavailab clau Sims, Dr. Jade Sanz Referring Shantel vailable Laragregg Josh Saulo Primary Care Unavailab clau Sims, Dr. Jade Sanz Referring Shantel vailable Sims, Dr. Jade Sanz Attending Shantel vailable Aryan Garcia Unavailable DO Josh Maciel Primary Care Provider MD Aryan Garcia Attending Provider [phone] DR SHADY BREEN Attending Unavailable FURJENNY, DR JOSH Mccord Primary Care Unavailable FURLONG, DR JOSH Mccord Consulting Unavailable JAMSHID, DR CARUSO Admitting Unavailable DR SHADY BREEN Consulting Unavailable FURLONG, DR JOSH Mccord Primary Care Unavailable FURLONG, DR JOSH Mccord Consulting Unavailable FURLONG, DR JOSH Mccord Attending Unavailable FURLONG, DR JOSH Mccord Admitting Unavailable FURLONG, DR JOSH Mccord Primary Care Unavailable FURLONG, DR JOSH Mccord Consulting Unavailable FURLONG, DR JOSH Mccord Attending Unavailable FURLONG, DR JOSH Mccord Admitting Unavailable FURLONG, DR JOSH Mccord Primary Care Unavailable MISC, DR GIVNES Consulting Unavailable MISC, DR GIVENS Attending Unavailable MISC, DR GIVENS Admitting Unavailable LYNN, DR PRASAD Attending Unavailable BAILEY, DR PRASAD Admitting Unavailable ZIEBER, DR EILEEN Rizo Consulting Unavailable FURLONG, DR JOSH Mccord Primary Care Unavailable BAILEY, DR PRASAD Consulting Unavailable FURLONG, DR JOSH Mccord Admitting Unavailable FURLONG, DR JOSH Mccord Primary Care Unavailable FURLONG, DR JOSH Mccord Attending Unavailable BAILEY, DR PRASAD Attending Unavailable BAILEY, DR PRASAD Admitting Unavailable FURLONG, DR JOSH cMcord Primary Care Unavailable FURLONG, DR JOSH Mccord Consulting Unavailable BAILEY, DR PRASAD Consulting Unavailable FURLONG, DR JOSH Mccord Primary Care Unavailable BREEN, DR CARUSO Consulting Unavailable BREEN, DR CARUSO Attending Unavailable BREEN, DR CARUSO Admitting Unavailable BAILEY, DR PRASAD Consulting Unavailable Sims, Dr. Jade Sanz Attending Shantel vailable Furlong, Dr. Josh Vernon Primary Care Unava ilable Furmarcong DO Josh Hanard Primary Care Provider Laralong DO Josh Saulo Primary Care Provider JADE SIMS Attending Unavailable FURLONG, JOSH VERNON Primary Care Unavailab le SIMSJADE GE Attending Unavailable SIMSJADE MONREAL Referring Unavailable FURLONG, JOSHLITA HANARD Primary Care Unavailab le Shady BREEN Attending Unavailable Shady BREEN Attending Unavailable Josseline Kerr Attending Unavailable Shady BREEN Admitting Unavailable Shady BREEN Attending Unavailable Shady BREEN Attending Unavailable FURLONGJOSH Referring Unavailable FURLONG, JOSH Mccord Primary Care Unavailable AsaShanique beltre Attending Unavailable Shanique Chiang Admitting Unavailable Furlong, Josh Primary Care Unavailable Furlong DO Josh Primary Care Provider [phone] Shanique Chiang MD Attending Provider [phone] Furlong DOJosh Laura Primary Care Provider Furlong DO, Josh Mccord Primary Care Provider VINNYNG, JOSH Mccord Attending Unavailable FURLONG, JOSH Mccord Referring Unavailable FURLONG, JOSH Mccord Primary Care Unavailable FURLONG, JOSH Mccord Attending Unavailable FURLONG, JOSH Mccord Referring Unavailable FURLONG, JOSH Mccord Primary Care Unavailable Cassandra Brady Attending Unavailable Shady BREEN Attending Unavailable BREEN, Shady R Attending Unavailable BREEN, Shady R Admitting Unavailable BREEN, Shady R Attending Unavailable BREEN, Shady R Attending Unavailable BREEN, Shady R Attending Unavailable BREEN, Shady R Attending Unavailable BREEN, Shady R Attending Unavailable BREEN, Shady R Attending Unavailable BREEN, Shady R Attending Unavailable Caitlyn, Cassandra Attending Unavailable BREEN, Shady R Attending Unavailable BREEN, Sahdy R Attending Unavailable BREEN, Shady R Attending Unavailable BREEN, Shady R Attending Unavailable BREEN, Shady R Attending Unavailable Josh Maciel DO Primary Care Provider Allergies Allergy Classification Reported Allergen(s) Allergy Type Date of Onset Reaction(s) Facility (20 sources) Ticagrelor; Translations: [Brilinta TABS] Drug Allergy 2 [facility] (3 sources) Ticagrelor; Translations: [TICAGRELOR] Drug Allergy [address] [facility] 3 Repository (2 sources) Bee/Wasp/Ant venom; Translations: [Bee Stings] Propensity to adverse reactions (disorder) [facility] Repository (2 sources) No Known Medication Allergies; Translations: [No Known Medication Allergies] Propensity to adverse reactions (disorder) [facility] Repository Medications Current Medications Medication Drug Class(es) Dates Sig (Normalized) Sig (Original) blood-glucose meter misc (1 source) Start: 11-01-2024 blood-glucose meter misc Indications: Type 2 diabetes mellitus with diabetic polyneuropathy, without long-term current use of insulin ([facility]) Use daily as directed 1 each 11/01/2024 Active clopidogrel 75 mg oral tablet (20 sources) P2Y12 Platelet Inhibitor Start: 04-08-2019 End: 12-27-2025 take 1 tablet by mouth once daily clopidogrel (Plavix) 75 mg tablet Indications: ASCVD (arteriosclerotic cardiovascular disease) Take 1 tablet (75 mg) by mouth once daily. 90 tablet 3 12/27/2024 12/27/2025 Active Clopidogrel Bisu lfate Active dapagliflozin 10 mg oral tablet (20 sources) Sodium-Glucose Cotransporter 2 Inhibitor Start: 06-26-2023 End: 07-11-2024 take 1 tablet by mouth in the morning dapagliflozin propanediol (FARXIGA) 10 mg tablet Take 1 tablet (10 mg total) by mouth in the morning. 30 tablet 5 07/11/2024 Active dutasteride 0.5 mg oral capsule (3 sources) 5-alpha Reductase Inhibitor Start: 10-17-2024 dutasteride (AVODART) 0.5 mg capsule Take 1 capsule (0.5 mg total) by mouth. 10/17/2024 Active empagliflozin 10 mg oral tablet (6 sources) Sodium-Glucose Cotransporter 2 Inhibitor Start: 06-15-2020 End: 06-18-2023 take 1 tablet by mouth once daily empagliflozin (Jardiance) 10 mg Take 1 tablet (10 mg) by mouth once daily. 0 06/15/2020 06/18/2023 Discontinued (Therapy completed) fluticasone propionate 0.05 mg/actuat metered dose nasal spray (18 sources) Corticosteroid fluticasone propionate (FLONASE) 50 mcg/actuation nasal spray Active fluticasone prop ionate (FLONASE) 50 mcg/actuation nasal spray fluticasone propionate 50 mcg/actuation nasal spray,suspension Active hydroxychloroquine sulfate 200 mg oral tablet (20 sources) Antimalarial, Antirheumatic Agent Start: 04-08-2019 take 1 tablet by mouth twice daily hydroxychloroquine (Plaquenil) 200 mg tablet Take 1 tablet (200 mg) by mouth 2 times a day. 10/03/2019 Active meloxicam 7.5 mg oral tablet (11 sources) Nonsteroidal Anti-inflammatory Drug Start: 02-16-2024 take 1 tablet by mouth in the morning meloxicam (Mobic) 7.5 mg tablet Take 1 tablet (7.5 mg) by mouth early in the morning.. 02/16/2024 Active metFORMIN hydrochloride 500 mg oral tablet (20 sources) Biguanide Start: 03-13-2020 End: 08-08-2024 take 2 tablets by mouth twice daily metFORMIN (Glucophage) 500 mg tablet Take 2 tablets (1,000 mg) by mouth 2 times a day. 03/13/2020 Active Start: 04-08-2019 Metformin 1,00 0 mg Tablet Active 500 MG PO Twice daily April 08, 2019 12:00am Start: 04-08-2019 take 500 mg by mouth twice naldo ly Metformin Active 500 MG PO Twice daily April 08, 2019 12:00am Metformin Active nitroglycerin 0.4 mg sublingual tablet (18 sources) Nitrate Vasodilator nitroglyceri n (NITROSTAT) 0.4 MG SL tablet Active ramipril 10 mg oral capsule (20 sources) Angiotensin Converting Enzyme Inhibitor Start: 04-08-20 take 1 capsule by mouth once daily ramipril (Altace) 10 mg capsule Indications: Essential hypertension Take 1 capsule (10 mg) by mouth once daily. 90 capsule 3 08/15/2024 Active Ramipril Active rosuvastatin calcium 10 mg oral tablet (20 sources) HMG-CoA Reductase Inhibitor Start: 04-08-2019 take 1 tablet by mouth once daily at bedtime rosuvastatin (Crestor) 10 mg tablet Indications: Mixed hyperlipidemia Take 1 tablet (10 mg) by mouth once daily at bedtime. 90 tablet 3 01/19/2024 Active Rosuvastatin Sabino cium Active Crestor Not-Taki ng sildenafil 100 mg oral tablet (20 sources) Phosphodiesterase 5 Inhibitor End: 10-31-2024 sildenafil (Viagra) 100 mg tablet 1 tablet (100 mg) if needed. Active End: 06-18-2023 sildenafil (Revatio) 20 mg t ablet Take 1 tablet (20 mg) by mouth if needed. 0 06/18/2023 Discontinued (Therapy completed) Sildenafil Citra te TABS as needed Quantity: 0 Refills: 0 Ordered: 23-Apr-2021 DO Active SITagliptin 100 mg oral tablet (20 sources) Dipeptidyl Peptidase 4 Inhibitor Start: 04-08-2019 End: 06-23-2023 take 1 tablet by mouth once daily SITagliptin phosphate (JANUVIA) 100 mg tablet take 1 tablet by mouth once daily 90 tablet 1 01/06/2024 Active Januvia Active tadalafil 5 mg oral tablet (4 sources) Phosphodiesterase 5 Inhibitor Start: 04-08-2019 take 1 tablet by mouth once daily as needed Tadalafil (Cialis) 5 mg Tablet Active 5 MG PO Daily as needed for Erectile Dysfunction April 08, 2019 12:00am Kaia mccord tamsulosin hydrochloride 0.4 mg oral capsule (20 [...] 08, 2019 12:00am April 08, 2019 11:20am testosterone cyp ionate (DEPOTESTOTERONE CYPIONATE) 200 mg/mL injection Active Testosterone Act fide verapamil hydrochloride 240 mg extended release oral tablet (20 sources) Calcium Channel Fani Start: 11-07-2024 End: 11-07-2025 take 1 tablet by mouth once daily verapamil SR (Calan-SR) 240 mg ER tablet Indications: Essential hypertension Take 1 tablet (240 mg) by mouth once daily. 90 tablet 3 11/07/2024 11/07/2025 Active Start: 04-08-2019 End: 06-18-2023 take 1 tablet [...] without long-term current use of insulin [place] Take 1 tablet (300 mg total) by mouth in the morning. 30 tablet 5 06/22/2023 06/26/2023 Discontinued (Formulary change) gabapentin 300 mg oral capsule (13 sources) Anti-epileptic Agent Start: 04-08-2019 End: 04-04-2024 take 1 capsule by mouth at bedtime gabapentin (NEURONTIN) 300 mg capsule Indications: Diabetic polyneuropathy associated with type 2 diabetes mellitus ([facility]) take 1 capsule by mouth at bedtime [...] 08, 2019 12:00am April 08, 2019 11:20am Julia Not-Taking Problems Active Problems Problem Classification Problem Date Documented Date Episodic/Chronic Coagulation and hemorrhagic disorders (19 sources) Thrombocytopenic disorder; Translations: [Thrombocytopenia, unspecified] Onset: [...] Onset: 10-26-2021 Chronic Other male genital disorders (19 sources) Male erectile dysfunction, unspecified; Translations: [Impotence of organic origin] Onset: 10-29-2021 03-19-2022 Chronic Other nutritional; endocrine; and metabolic disorders (18 sources) Obesity; Translations: [Obesity, unspecified] Onset: 03-19-2022 Resolved: 03-19-2022 03-19-2022 Chronic Other nutritional; endocrine; and metabolic disorders (2 sources) Obesity caused by energy imbalance; Translations: [Class 1 obesity due to excess calories with serious comorbidity and body mass index (BMI) of 30.0 to 30.9 in adult] 05-02-2024 Chronic Other nutritional; endocrine; and metabolic disorders (1 source) Other obesity due to excess calories; Translations: [Other obesity due to excess calories] Onset: 05-02-2024 Chronic Other nutritional; endocrine; and metabolic disorders (1 source) Body mass index (BMI) 30.0-30.9, adult; Translations: [Body mass index (BMI) 30.0-30.9, adult] Onset: 05-02-2024 Chronic Other nutritional; endocrine; and metabolic disorders (2 sources) Body mass index 30+ - obesity; Translations: [Obesity, unspecified] Onset: 03-22-2024 12-27-2024 Chronic Other nutritional; endocrine; and metabolic disorders [...] SFA clinton oplasty 2008; Residual codes; unclassified (8 sources) Sleep apnea; Translations: [Unspecified sleep apnea] [...] MX SITE NO ORGAN/SYS] Onset: 07-13-2021 Chronic Screening and history of mental health and substance abuse codes (13 sources) Ex-smoker; Translations: [Personal history of tobacco use] Onset: 06-18-2023 06-18-2023 Episodic Unclassified (18 sources) Hypogonadism; Translations: [Hypogonadism] Onset: 10-06-2017 03-19-2022 Unclassified (1 source) Obesity, class 1; Translations: [Obesity, class 1] Onset: 05-02-2024 Past or Other Problems Problem Classification Problem Date Documented Date Episodic/Chronic Deficiency and other anemia (1 source) Anemia; Translations: [Anemia, unspecified] Onset: 06-19-2023 06-19-2023 Episodic Deficiency and other anemia (19 sources) Normocytic normochromic anemia; Translations: [Anemia, unspecified] Onset: 06-19-2023 06-25-2023 Episodic Mood disorders (18 sources) Mood disorders Onset: 05-04-2023 Resolved: 10-31-2024 05-04-2023 Other aftercare (1 source) Other snf (current) drug therapy; Translations: [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] Onset: 07-16-2021 Episodic Other and unspecified benign neoplasm (18 sources) Tubular adenoma ; Translations: [Benign neoplasm, unspecified site] Onset: 03-19-2022 03-19-2022 Episodic Other circulatory disease (2 sources) History of claudication; Translations: [Personal history of unspecified circulatory disease] Resolved: 02-04-2022 Episodic Other circulatory disease (4 sources) Femoral bruit; Translations: [Other symptoms involving cardiovascular system] Onset: 05-26-2023 05-26-2023 Episodic Other connective tissue disease (1 source) Impingement syndrome of right shoulder; Translations: [Impingement syndrome of right shoulder] Onset: 07-06-2017 Episodic Other connective tissue disease (18 sources) Right rotator cuff syndrome; Translations: [Unspecified rotator cuff tear or rupture of right shoulder, not specified as traumatic] Onset: 03-19-2022 03-19-2022 Episodic Other connective tissue disease (18 sources) Impingement syndrome of shoulder region; Translations: [Impingement syndrome of unspecified shoulder] Onset: 03-19-2022 03-19-2022 Episodic Other connective tissue disease (18 sources) Radial styloid tenosynovitis; Translations: [Radial styloid tenosynovitis [de Quervain]] Onset: 09-11-2016 03-19-2022 Episodic Other non-traumatic joint disorders (4 sources) Pain in right knee; Translations: [PAIN IN RIGHT KNEE] Onset: 07-24-2021 Episodic Other nutritional; endocrine; and metabolic disorders (2 sources) Overweight; Translations: [Overweight] Onset: 06-18-2023 06-18-2023 Episodic Other nutritional; endocrine; and metabolic disorders (1 source) Overweight; Translations: [Overweight] Onset: 06-18-2023 Episodic Other screening for suspected conditions (not mental disorders or infectious disease) (20 sources) History of adenomatous polyp of colon; Translations: [Encounter for screening for malignant neoplasm of colon] Onset: 01-10-2022 04-08-2019 Episodic Unclassified (5 sources) Onset: 06-18-2023 Resolved: 03-22-2024 06-18-2023 Results Test Name Value Interpretation Reference Range Facility Ambulatory Visit Summaryon 0 11-14-2024 Ambulatory Visit Summary Ambulatory Visit Summary MIKE MUÑIZ Emery :1955 Visit Date:11/14/2024 Ambulatory Visit Instructions Your Diagnosis Hypogonadism male BPH with urinary obstruction Impotence Your Care Team Attending Physician - JAMSHID VILLAVICENCIO, Shady Rizo Primary Care Physician - JOSH MACIEL DO This Is Your Medications List ciprofloxacin (Cipro 500 mg Tab) dutasteride (dutasteride 0.5 mg Cap) sildenafil (sildenafil 100 mg Tab) testosterone (testosterone cypionate 200 mg/mL IM Mavis) Contact prescribing physician if questions or concerns clopidogrel (clopidogrel 75 mg Tab) dapagliflozin (Farxiga 10 mg oral tablet) empagliflozin (Jardiance 10 mg oral tablet) gabapentin (gabapentin 300 mg Cap) hydroxychloroquine (hydroxychloroquine 200 mg Tab) meloxicam (meloxicam 7.5 mg Tab) metformin (metformin 500 mg Tab) ramipril (ramipril 10 mg Cap) rosuvastatin (Crestor 10 mg Tab) sitagliptin (Januvia 100 mg Tab) tamsulosin (Flomax 0.4 mg Cap) verapamil (verapamil 240 mg ER Tab) Procedures Performed Arthroplasty of the hip (03/01/2018), Carpal tunnel release (10/01/2017), Carpal tunnel release (09/17/2017), Arthroscopy of shoulder (08/06/2017), left shoulder arthroscopy (05/04/2014), Cystoscope (09/04/2009), CORONARY ARTERY STENT INSERTION x2, Hernia repair, STENT INSERTION RIGHT LEG. Discharge Vitals Temperature (Temporal Artery) 37 ???C Heart Rate (Peripheral) 58 Respiratory Rate 16 Blood Pressure 108/68 Height 188 cm Height 74 in Weight 103.2 kg Weight 227.517 lb BMI 29.2 What to do next Scheduled Follow-Up Appointments Thursday 2:00 PM EDT Where: [facility] [address] [place] [address]- You Need to Schedule the Following Appointments Follow Up with JAMSHID VILLAVICENCIO, NAHOMI Nixon When: Where: [facility] [address], [place] [address]- [phone] Medications What How Much When Why Instructions New ciprofloxacin (Cipro 500 mg Tab) 1 Tablets By Mouth Every day BPH with urinary obstruction take one tab day before procedure and one tab after procedure Pickup at [facility] Unchanged dutasteride (dutasteride 0.5 mg Cap) 1 Capsules By Mouth Every day BPH with urinary obstruction Unchanged sildenafil (sildenafil 100 mg Tab) 1 Tablets By Mouth As Directed as needed for Other (see comment) Take 1 hour prior to sexual activity. Do not exceed more than 100 mg (1 tab) within 24 hours. Unchanged testosterone (testosterone cypionate 200 mg/ mL IM Mavis) 400 Milligram Intramuscular Every 4 weeks Pickup at [facility] Unchanged clopidogrel (clopidogrel 75 mg Tab) 1 Tablets By Mouth Every day Contact prescribing physician if questions or concerns Unchanged dapagliflozin (Farxiga 10 mg oral tablet) See instructions Contact prescribing physician if questions or concerns Unchanged empagliflozin (Jardiance 10 mg oral tablet) 90 EA, take 1 tablet by mouth once daily Contact prescribing physician if questions or concerns Unchanged gabapentin (gabapentin 300 mg Cap) 1 Capsules By Mouth Every day Contact prescribing physician if questions or concerns Unchanged hydroxychloroquine (hydroxychloroquine 200 mg Tab) 1 Tablets Contact prescribing physician [...] prescribing physician if questions or concerns Unchanged verapamil (verapamil 240 mg ER Tab) 1 Tablets Contact prescribing physician if questions or concerns Pharmacy Information [facility]: [address] [place], [place] [phone] Allergies Bee Stings (Unknown) No Known Medication [...] via text or e-mail asking about your offic (more content not included)... Normal Shafer [facility] Urology Office/Clinic Noteon 11-14-2024 Urology Office/Clinic Note Urology Office/Clinic Note Chief Complaint 4 month f/u HPI Staff 69 yr old male here for 4 mth f/u w/ testosterone and prolactin levels. last injection was 10/18/24 Previous Dx: hypogonadism, BPH with obstruction, impotence *Testosterone IM 400mg q4wks, tamsulosin 0.4mg bid, sildenafil 100mg prn T Level: 10/28/22 - 377 06/19/23 - 329 & 7.9 free 12/17/23 - 239 05/05/24 - 529 07/11/24 - 237 11/01/24 - 520 Prolactin - 11/01/24 - 13.1 IPSS score of 5 today. Admits to a small amount of post void dribbling. Denies any visible blood or pain of any kind. Incomplete emptying, frequency, intermittency and weak stream less than 1 in 5x. Nocturia x1 History of Present Illness Tests reviewed: reviewed UA, T level, prolactin I have reviewed the previous health record information and history for this patient from Dr. Breen. I have reviewed and verified the staff [...] & Measurements T: 37 ???C(Temporal Artery) HR: 58(Peripheral) RR: 16 BP: 108/68 HT: 74 in HT: 188 cm WT: 227.517 lb WT: 103.2 kg BMI: 29.2 General Appearance: alert, no distress, well nourished, well developed male. Assessment/Plan 1. Hypogonadism male (E29.1: Testicular hypofunction) Testosterone (ref range [phone]): 04/26/22 - 229 10/28/22 - 377 06/19/23 - 329 & 7.9 free 12/17/23 - 239 04/18/24 - HGB 12.5 L 05/05/24 - 529 07/11/24 - 237 [300mg inj q4wks] 10/30/24 - 520. Prolactin 13.1. [400mg inj q4wks] Stopped Androgel 12/2023. Increased Testosterone IM from 300 mg to 400 mg inj q4wks. Last inj given 10/17/24. Current level wnl. Feels energy is better during the day. Will maintain same dosage. -Cont Testosterone IM 400 mg inj qw4ks. Refills sent. -Testosterone inj to be given IO this week -F/u in 6 mos w T level 2. BPH with urinary obstruction (N40.1: Benign prostatic hyperplasia with lower urinary tract symptoms) PSA: 12/11/20 - 0.69 04/26/22 - 0.43 12/28/23 - 0.50 S/p Evolve of prostate 2009. [1] IPSS 5 (27). UA neg. Taking Tamsulosin 0.4 mg bid. Started on Dutasteride 0.5mg qd at prior OV. Feels this works well. However does share interest in operative intervention to reduce medical management. Wishes to proceed with cysto to determine candidacy. Risks/benefits discussed. he wants to be able to donate blood again....will need to be off of dutasteride. -Cont Tamsulosin and Dutasteride -Will schedule cystoscopy. The risks and benefits for cystoscopy have been discussed. The risks include bleeding, infection, and irritation of the bladder and urinary channel, among others. The patient, after being informed of procedural details and after questions have been answered, wishes to proceed. Full informed consent has been obtained. Will order Local anesthesia. -Consider stopping Dutasteride if pt wishes to donate blood (he is O-) 3. Impotence (N52.9: Male erectile dysfunction, unspecified) Taking Sildenafil 100 mg prn. Reports medication does help achieve an erection but unable to maintain it. Thinks he tried Tadalafil previously but had same effect. Educated pt he is on max med dosage. Discussed alternative options including penile pump or ICI. Pt has tried vacuum device with some improvement. Not interested in ICI as his has had decreased interest. Does not feel it is necessary adjust regimen at this time. -Cont Sildenafil wo changes Follow-up With When Contact Information JAMSHID VILLAVICENCIO, Shady Rizo, URL [facility] [address], [place] [address]- [phone] Additional Instructions: sched cysto, 6 mos w T level Patient Education Cystoscopy Hypogonadism, Male I, Val Alston, personally scribed for Dr. Breen on 11/14/2024 10:09:24. . Documentation recorded by the corinneibVal mantilla, accurately reflects the services(s) I performed and decisions made by me. Authenticated by Dr. Breen on 11/14/2024 10:13:49. Problem List/Past Medical History Ongoing Arthritis BPH with urinary obstruction CAD - Coronary artery disease Diabetes Diabetic neuropathy Former smoker Glucosuria Hypercholesterolemia Hypertension Hypogonadism male Impotence Low serum testosterone level Nocturia Obesity.. Weak urinary stream Historical Rotator cuff tear Procedure/Surgical History Arthroplasty of the hip (03/01/2018), Carpal tunnel (more content not included)... Normal [facility] Comment on above: Result Comment: Elec tronically Signed By: Shady BREEN MD\.br\Date and Time Signed: 11/14/24 10:13 EDT\.br\Electronically Co-Signed By: Val Alston\.br\Date and Time Co-Signed: 11/14/24 10:10 EDT Ambulatory Visit Summaryon 0 10-17-2024 Ambulatory Visit Summary Ambulatory Visit Summary MIKE MUÑIZ :1955 Visit Date:10/17/2024 Ambulatory Visit Instructions Your Care Team Attending Physician - Shady BREEN MD Primary Care Physician - JOSH MACIEL DO This Is Your Medications List clopidogrel [...] Follow-Up Appointments Thursday 9:15 AM EDT With: JAMSHID VILLAVICENCIO, Shady Rizo Where: [facility] [address] [address]- Medications What How Much When Why Instructions [...] you for choosing us for your care. Myron Shafer [facility] Urology Office/Clinic Noteon 07-18-2024 Urology Office/Clinic Note [...] and history for this patient from Dr. Breen. I have reviewed and verified the staff [...] Dutasteride 0.5mg qd. Rx sent to [facility]. Pt aware medication takes a few months to take effect. -Consider Rezum/turp in future 3. Impotence (N52.9: Male erectile dysfunction, unspecified) Sildenafil 100 mg prn. [2] Follow-up With When Contact Information JAMSHID VILLAVICENCIO, Shady Rizo, URL [facility] [address] [place] [address]- [phone] Additional Instructions: 4 mos w/ testosterone and prolactin levels Patient Education Hypogonadism, Male I, Val Alston, personally scribed for Dr. Breen on 07/18/2024 16:10:00. . Documentation recorded by the scribe, Val Alston, accurately reflects the services(s) I performed and decisions made by me. Authenticated by Dr. Breen on 07/18/2024 16:11:34. Problem List/Past Medical History [...] tab(s) Caio (more content not included)... Normal [facility] Comment on above: Result Comment: Elec tronically Signed By: Shady BREEN MD\.br\Date and Time Signed: 07/18/24 16:11 EST\.br\Electronically Co-Signed By: Val Alston\.br\Date and Time Co-Signed: 07/18/24 16:10 EST Ambulatory Visit Summaryon 0 05-30-2024 Ambulatory Visit Summary Ambulatory Visit Summary MIKE MUÑIZ :1955 Visit Date:05/30/2024 Ambulatory Visit Instructions Your Care Team Attending Physician - Shady BREEN MD Primary Care Physician - JOSH MACIEL DO This Is Your Medications List clopidogrel [...] AM EST With: Where: [facility] [place] [address] [facility] [place] [address]- Thursday 8:15 AM EDT With: Shady BREEN MD Where: [facility] [address] [facility] [place] [address]- Medications What How Much When Instructions Unchanged [...] for choosing us for your care. Normal [facility] Glucose Glucometer (dC) [M ass/Vol]Ordered By: Shanique Chiang on 05-04-2024 Glucose [Mass/Vol] Capillary blood glucose measurement by glucometer (mass/volume) [facility] Comment on above: Random Glucose Refer ence Range is dependent on time and content of last meal. Glucose of more than 200 mg/dL in a nonstressed, ambulatory subject supports the diagnosis of Diabetes Mellitus. Glucose Poct Glucometerson 1 07-05-2023 Commemt1 Glu2: Cleaned Meter Normal [facility] Comment on above: Result Comment: PERF ORMED BY: [facility] [address] [place] [address] PATHOLOGIST HIDE OR SKIN BUFFER VENECIA SANTO M.D. Performed By: #### G CARLOS ENRIQUE #### Point of Care testing , Glucose [Mass/Vol] 134 mg/dL Normal [facility] Comment on above: Result Comment: [place] Glucose Reference Range is dependent on time and content of last meal. Glucose of more than 200 mg/dL in a nonstressed, ambulatory subject supports the diagnosis of Diabetes Mellitus. Performed By: #### G LULS #### Point of Care testing , No Panel InformationOrdered By: Shanique Chiang on 05-04-2024 Miscellaneous Pathology Test See comment [facility] Comment on above: See report. Scanned copy available in EMR. Bedside Glucose Comment Glu2: cleaned meter [facility] Pathology Request for Lab Co rpon 05-04-2024 Pathology Request for Lab Kaykay Normal [facility] Comment on above: Order Comment: PATHO LOGY GI SPECIMEN Result Comment: See report. Scanned copy available in EMR. PERFORMED BY: [place] [address] PATHOLOGIST HIDE OR SKIN BUFFER VENECIA SANTO M.D. Performed By: #### P ATH TO [facility] #### [address] Lipid profileon 05-02-2024 External Cholesterol 135 [facility] External Hdl Cholesterol 59 [facility] External Ldl (Calc) 61 [facility] External Triglycerides 35 [facility] MICROALBUMIN - ALBUMIN:CREAT ININE URINE RATIOon 05-02-2024 ALB/CREAT RATIO NOT CALCULATED Normal 0.0-30.0 [facility] Comment on above: Result Comment: Result for Albumin/Creatinine Ratio cannot be reliably calculated because urine albumin and or urine creatinine is below the detection limit of the assay. Performed By: #### M ALBU #### [facility] ([id number]) [address] [place] [address] Albumin DL <= 20 mg/L (U) [Mass/Vol] mg/dL Normal 0.0-1.9 [facility] Comment on above: Performed By: #### M ALBU #### [facility] ([id number]) [address] [place] [address] URINE CREAT 24.53 mg/dL Normal [facility] Comment on above: Performed By: #### M ALBU #### [facility] ([id number]) [address] [place] [address] Urology Office/Clinic Noteon 05-02-2024 Urology Office/Clinic Note Urology Office/Clinic Note Chief Complaint f/u testosterone level HPI Staff 68yr old male pt here for 4mo f/u testosterone level check. Labs drawn at [facility] last week. Wants to discuss Flomax medication, [...] and history for this patient from Dr. Breen. I have reviewed and verified the staff [...] erections. Had labs drawn last wk at [facility], did not run. Cannot adjust dose since no recent level. Pt is due for his injection today. Will have pt receive inj today at same dosage and then get T level in the AM tomorrow. Follow up 6 mos with T level or sooner if needed. Pt understands and agrees with plan. -Receive injection today. -Get T level drawn tomorrow at [facility] (recalled). May adjust dose over the [...] [facility] [address] [place] [address]- Additional Instructions: 6 mos with T level Patient Education Hypogonadism, Male I, Kaia Valdez, personally scribed for Dr. Breen on 05/02/2024 15:15:39. . Documentation recorded by the scribe, Kaia Valdez, accurately reflects the services(s) I performed and decisions made by me. Authenticated by Dr. Breen on 05/02/2024 15:19:21. Problem List/Past Medical History [...] Januvia 100 (more content not included)... Normal [facility] Comment on above: Result Comment: Elec tronically Signed By: Shady BREEN MD\.br\Date and Time Signed: 05/02/24 15:19 EST\.br\Electronically Co-Signed By: Kaia Valdez\.br\Date and Time Co-Signed: 05/02/24 15:16 EST\.br\Electronically Co-Signed By: Kaia Valdez\.br\Date and Time Co-Signed: 05/02/24 15:16 EST Ambulatory Visit Summaryon 1 06-04-2023 Ambulatory Visit Summary Ambulatory Visit Summary MIKE MUÑIZ :1955 Visit Date:04/04/2024 Ambulatory Visit Instructions Your Diagnosis Hypogonadism male Your Care Team Attending Physician - Shady BREEN MD Primary Care Physician - JOSH MACIEL DO This Is Your Medications List clopidogrel (clopidogrel 75 mg Tab) empagliflozin (Jardiance 10 mg oral tablet) gabapentin (gabapentin 300 mg Cap) meloxicam (meloxicam 7.5 mg Tab) metformin (metformin 500 mg Tab) ramipril (ramipril 10 mg Cap) rosuvastatin (Crestor 10 mg Tab) sildenafil (sildenafil 100 mg Tab) sitagliptin (Januvia 100 mg Tab) tamsulosin (Flomax 0.4 mg Cap) testosterone (testosterone cypionate 200 mg/mL IM Maivs) Procedures Performed Arthroplasty of the hip (03/01/2018), Carpal tunnel release (10/01/2017), Carpal tunnel release (09/17/2017), Arthroscopy of shoulder (08/06/2017), left shoulder arthroscopy (05/04/2014), Cystoscope (09/04/2009), CORONARY ARTERY STENT INSERTION x2, Hernia repair, STENT INSERTION RIGHT LEG. What to do next Scheduled Follow-Up Appointments Thursday 1:30 PM EST With: JAMSHID VILLAVICENCIO, Shady Rizo Where: [place] [address]- Medications What How Much When Instructions Unchanged [...] you for choosing us for your care. [facility] Ambulatory Visit Summaryon 0 01-12-2024 Ambulatory Visit Summary Ambulatory Visit Summary MIKE MUÑIZ :1955 Visit Date:01/12/2024 Ambulatory Visit Instructions Your Diagnosis Hypogonadism male Your Care Team Attending Physician - Josseline Kerr MD Primary Care Physician - JOSH MACIEL DO This Is Your Medications List clopidogrel [...] AM EDT With: Where: [facility] [address] [place] [address]- Thursday 8:45 AM EST With: JAMSHID VILLAVICENCIO, Shady Rizo Where: [facility] of [address] [address]- Medications What How Much When Instructions Unchanged [...] testosterone (testosterone cypionate 200 mg/ mL IM Mavsi) 300 Milligram Intramuscular Every 4 weeks Medications [...] for choosing us for your care. Normal [facility] Ambulatory Visit Summaryon 0 12-28-2023 Ambulatory Visit Summary Ambulatory Visit Summary MIKE MUÑIZ :1955 Visit Date:12/28/2023 Ambulatory Visit Instructions Your Diagnosis Hypogonadism male BPH with urinary obstruction Impotence Your Care Team Attending Physician - Shady BREEN MD Primary Care Physician - JOSH MACIEL DO This Is Your Medications List sildenafil [...] AM EDT With: Where: [facility] [address] [address]- Thursday 8:45 AM EST With: Shady BREEN MD Where: [facility] [address] [address]- You Need to Schedule the Following Appointments Follow Up with Shady BREEN MD, URL When: Where: [facility] [address] [place] [address], [place] [address]- Medications What How Much When Instructions Changed sildenafil (sildenafil 100 mg Tab) 1 Tablets By Mouth As Directed as needed for Other (see comment) Take 1 hour prior to sexual activity. Do not exceed more than 100 mg (1 tab) within 24 hours. Pickup at [facility] Changed testosterone (testosterone cypionate 200 mg/ mL IM Mavis) 300 Milligram Intramuscular Every 4 weeks Pickup at [facility] Unchanged clopidogrel (clopidogrel 75 mg Tab) [...] physician if questions or concerns Pharmacy Information [facility]: [address] [place], [place] [id number] [phone] What How Much When Comments Stop Taking [...] characteristics duri (more content not included)... Normal [facility] PSA Totalon 12-28-2023 Prostate specific Ag [Mass/Vol] 0.5 ng/mL Normal 0.1-3.5 [facility] Comment on above: Result Comment: The concentration of PSA determined by different manufacturers can vary due to differences in assay methods and reagent specificity. Values obtained from different assay methods cannot be used interchangeably. The methodology used for this result was chemiluminescence using [employer] Access Hybritech PSA reagent. Performed By: #### [id number] #### [facility] [address] [place] [address] Urology Office/Clinic Noteon 12-28-2023 Urology Office/Clinic Note [...] and history for this patient from Dr. Breen. I have reviewed and verified the staff [...] q4ks. SEs discussed. Rx sent to [facility]. -Schedule nursing visits q4wks for T injections. -Pt knows to get T level drawn exactly group home in-between injections before 10 am. 2. [...] prn. Using occasionally. Refill sent to [facility]. Follow-up With When Contact Information JAMSHID VILLAVICENCIO, Shady Rizo, URL [facility] [address], [place] [address]- Additional Instructions: 4 mos with T level. schedule nursing visits q4wks for t injections. Patient Education Hypogonadism, Male I, Kaia Valedz, personally scribed for Dr. Breen on 12/28/2023 13:08:02. . Documentation recorded by the scribe, Kaia Valdez, accurately reflects the services(s) I performed and decisions made by me. Authenticated by Dr. Breen on 12/28/2023 13:12:11. Problem List/Past Medical History [...] Daily Caio (more content not included)... Normal [facility] Comment on above: Result Comment: Elec tronically Signed By: JAMSHID VILLAVICENCIO, Shady Rizo\.br\Date and Time Signed: 12/28/23 13:12 EDT\.br\Electronically Co-Signed By: Kaia Valdez\.br\Date and Time Co-Signed: 12/28/23 13:08 EDT Pre-Certification Formon Pre-Certification Form [id number] 0TIFF Normal [facility] Pre-Certification Formon Pre-Certification Form [id number]#1.0 0TIFF Normal [facility] Lab Reportson 06-30-2023 Lab Reports [id number]#[id number] 0TIFF Normal [facility] Lab Reportson 06-20-2023 Lab Reports [id number]#1.0 0TIFF [facility] Pre-Certification Formon Pre-Certification Form [id number]#1.0 0TIFF [facility] Abdominal Aorta/Isela ac/IVC Ultraon 01-05-2023 [facility] Abdominal Aorta/Iliac/IVC Ultra [address], [place] [address] Vascular Lab Report Abdominal Aorta Iliac Ultrasound/IVC Ultrasound Patient Name: MIKE MUÑIZ [place] Physician: [id number] Jade Sims MD, 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 Imaging AND Doppler Findings: AORTA AP Lateral PSV Proximal 1.49 cm 1.36 cm 101.0 cm/s Mid 1.55 cm 1.43 cm 97.0 cm/s Distal 1.57 cm 1.51 cm 72.0 cm/s RIGHT AP Lateral PSV FRANCISCO Proximal 1.08 cm 0.81 cm 147.00 cm/s LEFT AP Lateral PSV FRANCISCO Proximal 0.83 cm 0.96 cm 94.00 cm/s [id number] Jade Sims MD, FACC Final Normal [facility] TESTOSTERONE, TOTALon 2021 Testosterone [Mass/Vol] 229 ng/dL Critically low 264-916 [facility] Comment on above: Result Comment: Adul t male reference interval is based on a population of healthy nonobese males (BMI <30) between 19 and 39 years old. Leticia, et.al. JCEM 2017,102;4868-0975. PMID: [id number]. Performed By: #### T ESTTOT ####[facility] [address] [place], [place] [address]Ha. Juan Alberto Carranza Office Visit (Cardiology)on 02-04-2022 [...] Weight Tips; Status:Complete - Retrospective Authorization; Done: 04Feb2022 Some eating tips that can help you lose weight.; Status:Complete - Retrospective Authorization; Done: 04Feb2022 SocHx: Former smoker Tobacco Use Screening; Status:Complete; Done: [id number] Patient Instructions Please bring all medicines, vitamins, and herbal supplements with you when you come to the office. Prescriptions will not be filled unless you are compliant with your follow up appointments or have a follow up appointment scheduled as per instruction of your physician. Refills should be requested at the time of your visit. 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 Surgical History [...] Recorded: 04Feb2022 08:27AM Heart Rate74, R Radial [id number], LUE, Sitting Flbetpjha24, LUE, Sitting Height6 ft 2 in Zwwsbc916 lb 2 oz BMI Ftbxdnnteq39.03 kg/m2 BSA Calculated2.29 Tobacco Useb) No PHQ-2 #1. Over the last 2 weeks have you felt down, depressed or hopeless? (If yes, answer PHQ-9 below)No PHQ-2 #2. Over the last 2 weeks have you felt littl (more content not included)... Normal [facility] GLYCOHEMOGLOBIN A1Con 2021 ADA RECOMMENDATION SEE BELOW Normal [facility] Comment on above: Result Comment: ADA RECOMMENDED LIMIT 4.0 - 6.0 ADA THERAPEUTIC TARGET < 7.0 ACTION SUGGESTED > 7.0 Performed By: #### A 1C #### [facility] [address] [place] [address] Dr. Juan lAberto Carranza Glucose [Mass/Vol] 126 mg/dL Normal [facility] Comment on above: Performed By: #### A 1C #### [facility] [address] [place] [address] Dr. Juan Alberto Carranza HbA1c (Bld) [Mass fraction] 6.0 % Normal 4.5-6.2 [facility] Comment on above: Performed By: #### A 1C #### [facility] [address] [place] [address] Dr. Juan Alberto Carranza LIPID PROFILEon 01-10-2022 CHOL-HDL RATIO NORM SEE BELOW Normal [facility] Comment on above: Result Comment: 3.3 - 4.4 LOW RISK 4.4 - 7.1 AVERAGE RISK 7.1 - 11.0 MODERATE RISK >11.0 HIGH RISK Performed By: #### L IPID, CMP #### [facility] [address] [place] [address] Dr. Juan Alberto Carranza Cholesterol [Mass/Vol] 136 mg/dL Normal <=200 [facility] Comment on above: Performed By: #### L IPID, CMP #### [facility] [address] [place] [address] Dr. Juan Alberto Carranza Cholesterol in HDL [Mass/Vol] 62 mg/dL Critically high 40-60 [facility] Comment on above: Performed By: #### L IPID, CMP #### [facility] [address] [place] [address] [address] Juan Alberto Carranza Cholesterol in LDL [Mass/Vol] 57.6 mg/dL Normal [facility] Comment on above: Performed By: #### L IPID, CMP #### [facility] [address] [place] [address] Dr. Juan Alberto Carranza Cholesterol.total/Chol esterol in HDL [Mass ratio] 2.2 {ratio} Normal [facility] Comment on above: Performed By: #### L IPID, CMP #### [facility] [address] [place] [address] [address] Juan Alberto Carranza HDL NORMAL > or = 60 mg/dl - LO W CARDIOVASCULAR RISK <40 mg/dl - HIGH CARDIOVASCULAR RISK Normal [facility] Comment on above: Performed By: #### L IPID, CMP #### [facility] [address] [place] [address] [address] Juan Alberto Carranza LDL CALC NORMAL SEE BELOW Normal [facility] Comment on above: Result Comment: <100 mg/dl OPTIMAL 100 - 129 mg/dl NEAR OR ABOVE OPTIMAL 130 - 159 mg/dl BORDERLINE HIGH 160 - 189 mg/dl HIGH >190 mg/dl VERY HIGH Performed By: #### L IPID, CMP #### [facility] [address] [place] [address] [address] Juan Alberto Carranza Triglyceride [Mass/Vol] 82 mg/dL Normal <=150 [facility] Comment on above: Performed By: #### L IPID, CMP #### [facility] [address] [place] [address] [address] Juan Alberto Carranza VLDL CALC 16.4 mg/dL Normal [facility] Comment on above: Performed By: #### L IPID, CMP #### [facility] [address] [place] [address] [address] Juan Alberto Carranza PROF 14(COMP METB)on 022 Albumin [Mass/Vol] 4.0 g/dL Normal 3.4-5.0 [facility] Comment on above: Performed By: #### L IPID, CMP #### [facility] [address] [place] [address] [address] Juan Alberto Carranza Albumin/Globulin [Mass ratio] 1.3 {ratio} Normal [facility] Comment on above: Performed By: #### L IPID, CMP #### [facility] [address] [place] [address] [address] Juan Alberto Carranza ALP [Catalytic activity/Vol] 48 U/L Normal 46-116 [facility] Comment on above: Performed By: #### L IPID, CMP #### [facility] [address] [place] [address] [address] Juan Alberto Carranza ALT [Catalytic activity/Vol] 28 U/L Normal 16-63 [facility] Comment on above: Performed By: #### L IPID, CMP #### [facility] [address] [place] [address] [address] Juan Alberto Carranza Anion gap [Moles/Vol] 13.2 mmol/L Normal [facility] Comment on above: Performed By: #### L IPID, CMP #### [facility] [address] [place] [address] [address] Juan Alberto Carranza AST [Catalytic activity/Vol] 13 U/L Critically low 15-37 [facility] Comment on above: Performed By: #### L IPID, CMP #### [facility] [address] [place] [address] Dr. Juan Alberto Carranza Bilirubin [Mass/Vol] 0.6 mg/dL Normal 0.2-1.0 [facility] Comment on above: Performed By: #### L IPID, CMP #### [facility] [address] [place] [address] [address] Juan Alberto Carranza Calcium [Mass/Vol] 8.8 mg/dL Normal 8.5-10.1 [facility] Comment on above: Performed By: #### L IPID, CMP #### [facility] [address] [place] [address] Dr. Juan Alberto Carranza Chloride [Moles/Vol] 100 mmol/L Normal 98-107 [facility] Comment on above: Performed By: #### L IPID, CMP #### [facility] [address] [place] [address] [address] Juan Alberto Carranza CO2 [Moles/Vol] 29.1 mmol/L Normal 21.0-32.0 [facility] Comment on above: Performed By: #### L IPID, CMP #### [facility] [address] [place] [address] [address] Juan Alberto Carranza Creatinine [Mass/Vol] 0.89 mg/dL Normal 0.70-1.30 [facility] Comment on above: Performed By: #### L IPID, CMP #### [facility] [address] [place] [address] [address] Juan Alberto Carranza EGFR-AF CITIZEN [place] >60 Normal >=60 [facility] Comment on above: Performed By: #### L IPID, CMP #### [facility] [address] [place] [address] [address] Juan Alberto Carranza EGFR-NON AF CITIZEN OF [place] >60 Normal >=60 [facility] Comment on above: Performed By: #### L IPID, CMP #### [facility] [address] [place] [address] [address] Juan Alberto Carranza Globulin (S) [Mass/Vol] 3.0 g/dL Normal [facility] Comment on above: Performed By: #### L IPID, CMP #### [facility] [address] [place] [address] [address] Juan Alberto Carranza Glucose [Mass/Vol] 134 mg/dL Critically high 74-106 [facility] Comment on above: Performed By: #### L IPID, CMP #### [facility] [address] [place] [address] [address] Juan Alberto Carranza Potassium [Moles/Vol] 4.3 mmol/L Normal 3.5-5.1 [facility] Comment on above: Performed By: #### L IPID, CMP #### [facility] [address] [place] [address] [address] Juan Alberto Carranza Protein [Mass/Vol] 7.0 g/dL Normal 6.4-8.2 [facility] Comment on above: Performed By: #### L IPID, CMP #### [facility] [address] [place] [address] [address] Juan Alberto Carranza Sodium [Moles/Vol] 138 mmol/L Normal 136-145 [facility] Comment on above: Performed By: #### L IPID, CMP #### [facility] [address] [place] [address] [address] Juan Alberto Carranza Urea nitrogen [Mass/Vol] 17.0 mg/dL Normal 7.0-18.0 [facility] Comment on above: Performed By: #### L IPID, CMP #### [facility] [address] [place] [address] [address] Juan Alberto Carranza Urea nitrogen/Creatinine [Mass ratio] 19.1 mg/mg Normal [facility] Comment on above: Performed By: #### L IPID, CMP #### [facility] [address] [place] [address] [address] Juan Alberto Carranza TESTOSTERONE, TOTALon 2021 Testosterone [Mass/Vol] 321 ng/dL Normal 264-916 [facility] Comment on above: Result Comment: Adul t male reference interval is based on a population of healthy nonobese males (BMI <30) between 19 and 39 years old. Travison, et.al. JCEM 2017,102;0923-1781. PMID: [id number]. Performed By: #### T ESTTOT #### [facility] [address] [place] [address] Dr. Juan Alberto Carranza TESTOSTERONE, TOTALon 2021 Testosterone [Mass/Vol] 360 ng/dL Normal [phone] [facility] Comment on above: Result Comment: Adul t male reference interval is based on a population of healthy nonobese males (BMI <30) between 19 and 39 years old. Travison, et.al. JCEM 2017,102;[id number]. PMID: [id number]. Performed By: #### T ESTTOT ####[facility] [id number] [address]Dr. Juan Alberto Carranza CBC AUTO DIFFon 07-13-2021 BASO # 0.0 103/ul Normal 0.0-0.1 [facility] Comment on above: Performed By: #### C BC #### [facility] [address] [address] [address] Juan Alberto Carranza Basophils/100 WBC (Bld) 0.5 % Normal 0.2-2.0 [facility] Comment on above: Performed By: #### C BC #### [facility] [address] [place] [address] Dr. Juan Alberto Carranza EO # 0.1 103/ul Normal 0.0-0.7 [facility] Comment on above: Performed By: #### C BC #### [facility] [address] [place] [address] Dr. Juan Alberto Carranza Eosinophils/100 WBC (Bld) 1.8 % Normal 0.9-7.0 [facility] Comment on above: Performed By: #### C BC #### [facility] [address] [place] [address] Dr. Juan Alberto Carranza Erythrocyte distribution width (RBC) [Ratio] 13.5 % Normal 11.0-15.0 [facility] Comment on above: Performed By: #### C BC #### [facility] [address] [place] [address] Dr. Juan Alberto Carranza Hematocrit (Bld) [Volume fraction] 40.4 % Critically low 42.0-54.0 [facility] Comment on above: Performed By: #### C BC #### [facility] [address] [place] [address] Dr. Juan Alberto Carranza Hemoglobin (Bld) [Mass/Vol] 13.9 g/dL Critically low 14.0-18.0 [facility] Comment on above: Performed By: #### C BC #### [facility] [address] [place] [address] Dr. Juan Alberot Carranza IG # 0.01 10e3/ul Normal 0.00-0.03 [facility] Comment on above: Performed By: #### C BC #### [facility] [address] [place] [address] Dr. Juan Alberto Carranza IG % 0.2 % Normal 0.0-0.5 [facility] Comment on above: Performed By: #### C BC #### [facility] [address] [place] [address] Dr. Juan Alberto Carranza LYMPH # 0.9 103/ul Critically low 1.2-3.8 [facility] Comment on above: Performed By: #### C BC #### [facility] [address] [place] [address] Dr. Juan Alberto Carranza Lymphocytes/100 WBC (Bld) 20.5 % Normal 20.5-60.0 [facility] Comment on above: Performed By: #### C BC #### [facility] [address] [place] [address] Dr. Juan Alberto Carranza MANUAL DIFF REQ NO Normal [facility] Comment on above: Performed By: #### C BC #### [facility] [address] [place] [address] Dr. Juan Alberto Carranza MCH (RBC) [Entitic mass] 32.3 pg Normal 25.9-34.0 [facility] Comment on above: Performed By: #### C BC #### [facility] [address] [place] [address] Dr. Juan Alberto Carranza MCHC (RBC) [Mass/Vol] 34.4 g/dL Normal 29.9-35.2 [facility] Comment on above: Performed By: #### C BC #### [facility] [address] [place] [address] Dr. Juan Alberto Carranza MCV (RBC) [Entitic vol] 93.7 fL Normal 80.0-94.0 [facility] Comment on above: Performed By: #### C BC #### [facility] [address] [place] [address] Dr. Juan Alberto Carranza MONO # 0.3 103/ul Normal 0.3-0.8 [facility] Comment on above: Performed By: #### C BC #### [facility] [address] [place] [address] Dr. Juan Alberto Carranza Monocytes/100 WBC (Bld) 7.0 % Normal 1.7-12.0 [facility] Comment on above: Performed By: #### C BC #### [facility] [address] [place] [address] Dr. Juan Alberto Carranza NEUT # 3.1 103/ul Normal 1.4-6.5 [facility] Comment on above: Performed By: #### C BC #### [facility] [address] [place] [address] Dr. Juan Alberto Carranza Neutrophils/100 WBC (Bld) 70.0 % Normal 43.0-75.0 [facility] Comment on above: Performed By: #### C BC #### [facility] [address] [address] [address] Juan Alberto Carranza Platelet mean volume (Bld) [Entitic vol] 11.3 fL Normal 9.5-13.5 [facility] Comment on above: Performed By: #### C BC #### [facility] [address] [address] [address] Juan Alberto Carranza PLT 141 103/ul Critically low 150-450 [facility] Comment on above: Performed By: #### C BC #### [facility] [address] [address] [address] Juan Alberto Carranza RBC 4.31 106/ul Critically low 4.70-6.10 [facility] Comment on above: Performed By: #### C BC #### [facility] [address] [place] [address] Dr. Juan Alberto Carranza WBC 4.4 103/ul Normal 4.0-11.0 [facility] Comment on above: Performed By: #### C BC #### [facility] [address] [place] [address] Dr. Juan Alberto Carranza LIPID PROFILEon 07-13-2021 CHOL-HDL RATIO NORM SEE BELOW Normal [facility] Comment on above: Result Comment: 3.3 - 4.4 LOW RISK 4.4 - 7.1 AVERAGE RISK 7.1 - 11.0 MODERATE RISK >11.0 HIGH RISK Performed By: #### L IPID #### [facility] [address] [place] [address] Dr. Juan Alberto Carranza Cholesterol [Mass/Vol] 139 mg/dL Normal <=200 [facility] Comment on above: Performed By: #### L IPID #### [facility] [address] [address] [address] Juan Alberto Carranza Cholesterol in HDL [Mass/Vol] 72 mg/dL Normal [facility] Comment on above: Performed By: #### L IPID #### [facility] [address] [address] [address] Juan Alberto Carranza Cholesterol in LDL [Mass/Vol] 62.4 mg/dL Normal [facility] Comment on above: Performed By: #### L IPID #### [facility] [address] [address] [address] Juan Alberto Carranza Cholesterol.total/Chol esterol in HDL [Mass ratio] 1.9 {ratio} Normal [facility] Comment on above: Performed By: #### L IPID #### [facility] [address] [address] [address] Juan Alberto Carranza HDL NORMAL > or = 60 mg/dl - LO W CARDIOVASCULAR RISK <40 mg/dl - HIGH CARDIOVASCULAR RISK Normal [facility] Comment on above: Performed By: #### L IPID #### [facility] [address] [address] [address] Juan Alberto Carranza LDL CALC NORMAL SEE BELOW Normal [facility] Comment on above: Result Comment: <100 mg/dl OPTIMAL 100 - 129 mg/dl NEAR OR ABOVE OPTIMAL 130 - 159 mg/dl BORDERLINE HIGH 160 - 189 mg/dl HIGH >190 mg/dl VERY HIGH Performed By: #### L IPID #### [facility] [address] [place] [address] Dr. Juan Alberto Carranza Triglyceride [Mass/Vol] 23 mg/dL Normal <=150 [facility] Comment on above: Performed By: #### L IPID #### [facility] [address] [place] [address] Dr. Juan Alberto Carranza VLDL CALC 4.6 mg/dL Normal [facility] Comment on above: Performed By: #### L IPID #### [facility] [address] [address] [address] Juan Alberto Carranza PROF 14(COMP METB)on 022 Albumin [Mass/Vol] 4.0 g/dL Normal 3.5-5.0 [facility] Comment on above: Performed By: #### C MP #### [facility] [address] [place] [address] Dr. Juan Alberto Carranza Albumin/Globulin [Mass ratio] 1.3 {ratio} Normal [facility] Comment on above: Performed By: #### C MP #### [facility] [address] [address] [address] Juan Alberto Carranza ALP [Catalytic activity/Vol] 60 U/L Normal 38-126 [facility] Comment on above: Performed By: #### C MP #### [facility] [address] [address] [address] Juan Alberto Carranza ALT [Catalytic activity/Vol] 22 U/L Normal 21-72 [facility] Comment on above: Performed By: #### C MP #### [facility] [address] [address] [address] Juan Alberto Carranza Anion gap [Moles/Vol] 9.4 mmol/L Normal [facility] Comment on above: Performed By: #### C MP #### [facility] [address] [place] [address] Dr. Juan Alberto Carranza AST [Catalytic activity/Vol] 12 U/L Critically low 17-59 [facility] Comment on above: Performed By: #### C MP #### [facility] [address] [place] [address] Dr. Juan Alberto Carranza Bilirubin [Mass/Vol] 0.6 mg/dL Normal 0.2-1.3 [facility] Comment on above: Performed By: #### C MP #### [facility] [address] [place] [address] Dr. Juan Alberto Carranza Calcium [Mass/Vol] 8.9 mg/dL Normal 8.4-10.2 [facility] Comment on above: Performed By: #### C MP #### [facility] [address] [place] [address] Dr. Juan Alberto Carranza Chloride [Moles/Vol] 103 mmol/L Normal 98-107 [facility] Comment on above: Performed By: #### C MP #### [facility] [address] [place] [address] Dr. Juan Alberto Carranza CO2 [Moles/Vol] 28.8 mmol/L Normal 22.0-30.0 [facility] Comment on above: Performed By: #### C MP #### [facility] [address] [address] [address] Juan Alberto Carranza Creatinine [Mass/Vol] 0.83 mg/dL Normal 0.66-1.25 [facility] Comment on above: Performed By: #### C MP #### [facility] [address] [address] [address] Juan Alberto Carranza EGFR-AF CITIZEN OF [place] >60 Normal >=60 [facility] Comment on above: Performed By: #### C MP #### [facility] [address] [address] [address] Juan Alberto Carranza EGFR-NON AF CITIZEN OF [place] >60 Normal >=60 [facility] Comment on above: Performed By: #### C MP #### [facility] [address] [address] [address] Juan Alberto Carranza Globulin (S) [Mass/Vol] 3.2 g/dL Normal [facility] Comment on above: Performed By: #### C MP #### [facility] [address] [address] [address] Juan Alberto Carranza Glucose [Mass/Vol] 135 mg/dL Critically high 74-106 [facility] Comment on above: Performed By: #### C MP #### [facility] [address] [address] [address] Juan Alberto Carranza Potassium [Moles/Vol] 5.2 mmol/L Critically high 3.4-5.0 [facility] Comment on above: Performed By: #### C MP #### [facility] [address] [address] [address] Juan Alberto Carranza Protein [Mass/Vol] 7.2 g/dL Normal 6.1-8.2 [facility] Comment on above: Performed By: #### C MP #### [facility] [address] [address] [address] Juan Alberto Carranza Sodium [Moles/Vol] 136 mmol/L Critically low 137-145 [facility] Comment on above: Performed By: #### C MP #### [facility] [address] [address] [address] Juan Alberto Carranza Urea nitrogen [Mass/Vol] 17.0 mg/dL Normal 9.0-20.0 [facility] Comment on above: Performed By: #### C MP #### [facility] [address] [place], [place] [address] Dr. Juan Alberto Carranza Urea nitrogen/Creatinine [Mass ratio] 20.5 mg/mg Normal [facility] Comment on above: Performed By: #### C MP #### [facility] [address] [place], [place] [address] Dr. Juan Alberto Carranza SED RATE WESTERGRENon 2021 SED RATE 2 mm/hr Normal <=20 [facility] Comment on above: Performed By: #### S EDR #### [facility] [address] [place], [place] [address] Dr. 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 Hyperlipidemia, on statin therapy, under control. Lipid profile was requested from PCP 5. Overweight. Weight has dropped 15 pounds from last year which is encouraging 6. Hypertension, presently under control. 7. Diabetes, under control., Lab data from PCP were requested Jade Sims MD, [facility] Current Meds [...] negative for complaint. Vitals Vital Signs Recorded: [id number] 03:40PM Heart Rate80, R Radial Dpprnuow070, RUE, Sitting Srjeowrry43, RUE, Sitting Height6 ft 2 in Wtcoue745 lb 9.6 oz BMI Uqoifsszko15.61 kg/m2 BSA Calculated2.31 Tobacco Useb) No Fall [...] . Signatures Electronically signed by : Jade Sims MD; Apr 23 2021 4:16PM EST (Author) Normal [facility] MRI SHOULDER RIGHT WO CONTRA STon 07-06-2017 [...] by:VENICE Maeigned by:Jair Olivia MD07/06/17inal result Normal [facility] Vital Signs Date Time Vital Sign Value Performing Clinician Facility 12-27-2024 08:51-0400 Body height 185.4 cm Jade Sims MD Work Phone: [facility] 12-27-2024 08:51-0400 Body mass index (BMI) [Ratio] 30.64 kg/m2 Jade Sims MD Work Phone: [facility] 12-27-2024 08:51-0400 Body weight 105.33 kg Jade Sims MD Work Phone: [facility] 12-27-2024 08:51-0400 Diastolic blood pressure 50 mm[Hg] Jade Sims MD Work Phone: [facility] 12-27-2024 08:51-0400 Heart rate 72 /min Jade Sims MD Work Phone: [facility] 12-27-2024 08:51-0400 Systolic blood pressure 110 mm[Hg] Jade Sims MD Work Phone: [facility] 10-31-2024 09:00-0400 Body height 185.4 cm [facility] 10-31-2024 09:00-0400 Body mass index (BMI) [Ratio] 30.75 kg/m2 Josh Furlong DO [facility] 10-31-2024 09:00-0400 Body temperature 98.01 [degF] [facility] 10-31-2024 09:00-0400 Body weight 105.69 kg Josh Furlong [facility] 10-31-2024 09:00-0400 Diastolic blood pressure 52 mm[Hg] [facility] Furlong [facility] 10-31-2024 09:00-0400 Heart rate 61 /min Josh Furlong [facility] 10-31-2024 09:00-0400 Respiratory rate 20 /min Josh Furlong DO [facility] 10-31-2024 09:00-0400 SaO2% (BldA) [Mass fraction] 96 % Josh Furlong DO Work Phone: [facility] 10-31-2024 09:00-0400 Systolic blood pressure 115 mm[Hg] Josh Furlong DO Work Phone: [facility] [employer] [facility] 06-09-2024 13:57-0500 Body height 1859.28 cm Josh Furlong DO Work Phone: [facility] 06-09-2024 13:57-0500 Body mass index (BMI) [Ratio] 0.3 kg/m2 Josh Furlong DO Work Phone: [facility] 06-09-2024 13:57-0500 Body weight 103.87 kg Josh Furlong DO Work Phone: [facility] 06-09-2024 13:57-0500 Diastolic blood pressure 66 mm[Hg] Josh Furlong DO Work Phone: [facility] 06-09-2024 13:57-0500 Heart rate 73 /min Josh Furlong DO Work Phone: [facility] 06-09-2024 13:57-0500 SaO2% (BldA) [Mass fraction] 97 % Josh Furlong DO Work Phone: [facility] 06-09-2024 13:57-0500 Systolic blood pressure 123 mm[Hg] Josh Furlong DO Work Phone: [facility] 05-04-2024 11:34-0500 Diastolic blood pressure 76 mm[Hg] Josh Furlong DO Work Phone: [facility] 05-04-2024 11:34-0500 Heart rate 52 /min Josh Furlong DO Work Phone: [facility] 05-04-2024 11:34-0500 Respiratory rate 20 /min Josh Furlong DO Work Phone: [facility] 05-04-2024 11:34-0500 SaO2% (BldA) [Mass fraction] 99 % Josh Furlong DO Work Phone: [facility] 05-04-2024 11:34-0500 Systolic blood pressure 156 mm[Hg] Josh Furlong DO Work Phone: [facility] 05-04-2024 08:37-0500 Body height 185.42 cm Josh Furlong DO Work Phone: [facility] 05-04-2024 08:37-0500 Body weight 102.51 kg Josh Furlong DO Work Phone: [facility] 05-02-2024 09:33-0500 Body height 185.4 cm Josh Furlong DO Work Phone: [facility] [employer] [facility] 05-02-2024 09:33-0500 Body mass index (BMI) [Ratio] 30.32 kg/m2 Josh Furlong DO Work Phone: [facility] [employer] [facility] 05-02-2024 09:33-0500 Body temperature 98.2 [degF] Johs Furlong DO [facility] 05-02-2024 09:33-0500 Body weight 104.24 kg Josh Furlong DO Work Phone: [facility] 05-02-2024 09:33-0500 Diastolic blood pressure 52 mm[Hg] Josh Furlong DO Work Phone: [facility] 05-02-2024 09:33-0500 Heart rate 72 /min Josh Furlong DO [facility] 05-02-2024 09:33-0500 Respiratory rate 18 /min Josh Furlong DO Work Phone: [facility] 05-02-2024 09:33-0500 SaO2% (BldA) [Mass fraction] 99 % Josh Furlong DO Work Phone: [facility] [employer] [facility] 05-02-2024 09:33-0500 Systolic blood pressure 104 mm[Hg] Josh Maciel DO Work Phone: [facility] 03-22-2024 10:51-0500 Body height 185.42 cm [facility] 03-22-2024 10:51-0500 Body mass index (BMI) [Ratio] 30 kg/m2 [facility] 03-22-2024 10:51-0500 Body weight 103.41 kg [facility] 03-22-2024 10:51-0500 Diastolic blood pressure 61 mm[Hg] [facility] 03-22-2024 10:51-0500 Heart rate 67 /min [facility] 03-22-2024 10:51-0500 SaO2% (BldA) [Mass fraction] 98 % [facility] 03-22-2024 10:51-0500 Systolic blood pressure 112 mm[Hg] [facility] 03-22-2024 08:42-0500 Body height 185.4 cm Jade Sims MD Work Phone: [facility] 03-22-2024 08:42-0500 Body mass index (BMI) [Ratio] 29.95 kg/m2 Jade Sims MD Work Phone: [facility] 03-22-2024 08:42-0500 Body weight 102.97 kg Jade Sims MD Work Phone: [facility] 03-22-2024 08:42-0500 Diastolic blood pressure 50 mm[Hg] Jade Sims MD Work Phone: [facility] 03-22-2024 08:42-0500 Heart rate 64 /min Jade Sims MD Work Phone: [facility] 03-22-2024 08:42-0500 Systolic blood pressure 100 mm[Hg] Jade Sims MD Work Phone: [facility] 06-25-2023 09:55-0500 Body mass index (BMI) [Ratio] 29.34 kg/m2 Josh Maciel DO Work Phone: [facility] 06-25-2023 09:55-0500 Body weight 100.88 kg Josh Maciel DO Work Phone: [facility] 06-18-2023 08:39-0500 Body height 185.4 cm Jade Sims MD Work Phone: [facility] 06-18-2023 08:39-0500 Body mass index (BMI) [Ratio] 29.82 kg/m2 Jade Sims MD Work Phone: [facility] 06-18-2023 08:39-0500 Body weight 102.51 kg Jade Sims MD Work Phone: [facility] 06-18-2023 08:39-0500 Diastolic blood pressure 76 mm[Hg] Jade Sims MD Work Phone: [facility] 06-18-2023 08:39-0500 Heart rate 62 /min Jade Sims MD Work Phone: [facility] 06-18-2023 08:39-0500 Systolic blood pressure 130 mm[Hg] Jade Sims MD Work Phone: [facility] 03-27-2022 16:00-0500 Body height Aryan Garcia Other [employer] Other 03-27-2022 16:00-0500 Body mass index (BMI) [Ratio] 29.81 kg/m2 Aryan Garcia Other [employer] Other 03-27-2022 16:00-0500 Body temperature 96.9 [degF] Aryan Garcia Other [employer] Other 03-27-2022 16:00-0500 Body weight 102.51 kg Aryan Garcia Other [employer] Other 03-27-2022 16:00-0500 Diastolic blood pressure 70 mm[Hg] Aryan Garcia Other [employer] Other 03-27-2022 16:00-0500 SaO2% (BldA) [Mass fraction] 100 % Aryan Garcia Other [employer] Other 03-27-2022 16:00-0500 Systolic blood pressure 128 mm[Hg] Aryan Garcia Other [employer] Other Encounters Encounter Date Encounter Type Care Provider Facility Start: 01-09-2025 ambulatory Cassandra Brady [facility] Start: 12-27-2024 End: 12-27-2024 Office outpatient visit 25 minutes Jade Sims MD Work Phone: [facility] Comment on above: ASCVD (arteriosclero tic cardiovascular disease) (Primary Dx); Peripheral vascular disease; Essential hypertension; Mixed hyperlipidemia; Other specified diabetes mellitus without complication, without long-term current use of insulin; Obstructive sleep apnea syndrome; Former smoker; Obesity (BMI 30-39.9); Intermittent claudication Start: 12-14-2024 End: 12-14-2024 ambulatory Cassandra Caitlyn Facility:[facility] Start: 12-13-2024 ambulatory Shady BREEN Facil ty:[id number] Start: 11-16-2024 End: 11-16-2024 ambulatory Shady BREEN Facility:[facility] Start: 11-14-2024 End: 11-14-2024 ambulatory Shady BREEN Facility:[facility] Start: 11-01-2024 End: 11-01-2024 Orders Only [facility] Maciel DO [facility] Comment on above: Type 2 diabetes gordy itus with diabetic polyneuropathy, without long-term current use of insulin ([facility] (Primary Dx) Start: 10-31-2024 End: 10-31-2024 Office outpatient visit 25 minutes Josh Maciel DO [facility] Comment on above: Type 2 diabetes gordy itus with diabetic polyneuropathy, without long-term current use of insulin [place] (Primary Dx); Essential hypertension; Class 1 obesity due to excess calories with serious comorbidity and body mass index (BMI) of 30.0 to 30.9 in adult; Hyperlipidemia, unspecified hyperlipidemia type; Peripheral vascular disease; Thrombocytopenia Start: 10-31-2024 End: 10-31-2024 ambulatory JOSH [facility] Start: 10-17-2024 End: 10-17-2024 ambulatory Shady BREEN Facility:[facility] Start: 09-19-2024 End: 09-19-2024 ambulatory Shady BREEN Facility:[facility] Start: 08-22-2024 End: 08-22-2024 ambulatory Shady BREEN Facility:[facility] Start: 08-08-2024 End: 08-09-2024 [facility] Start: 08-04-2024 End: 08-04-2024 Refill Kenzie Richards [facility] Phys[facility] Internal Medicine - Family Medicine Comment on above: Type 2 diabetes gordy itus with diabetic polyneuropathy, without long-term current use of insulin [place] [place] Start: 07-25-2024 End: 07-25-2024 ambulatory Shady BREEN Facility:[facility] Start: 07-23-2024 End: 07-23-2024 Refill Josh Laura Bermudezjenny DO Work Phone: [facility] Start: 07-18-2024 End: 07-18-2024 ambulatory Shady BREEN Facility:[facility] Start: 07-11-2024 End: 07-11-2024 Refill Belkys Angelique [facility] Internal Medicine - Family Medicine Start: 06-27-2024 End: 06-27-2024 ambulatory Shady BREEN Facility:[facility] Start: 06-09-2024 End: 06-09-2024 ambulatory Joshlita Bermudezjenny DO Work Phone: [facility] Work Phone: Start: 06-09-2024 End: 06-09-2024 Patient encounter procedure Josh Maciel DO Work Phone: [facility] Work Phone: Start: 05-30-2024 End: 05-30-2024 ambulatory Shady R BREEN Facility:[facility] Start: 05-04-2024 Non-patient / Non-visit Josh Maciel DO Work Phone: [facility] Work Phone: Start: 05-04-2024 Non-patient / Non-visit Josh Maciel DO Work Phone: [facility] Physician [facility] Work Phone: Start: 05-04-2024 End: 05-04-2024 Admission to same day surgery center Josh Maciel DO Work Phone: [facility] Work Phone: Start: 05-04-2024 End: 05-04-2024 ambulatory Imad Asaad Facility:[facility] Start: 05-02-2024 End: 05-02-2024 [facility] Start: 05-02-2024 End: 05-02-2024 ambulatory Shady R BREEN Facility:[facility] Start: 05-02-2024 End: 05-02-2024 Office outpatient visit 25 minutes Josh Maciel DO Work Phone: [facility] Physicians Internal Medicine - Family Medicine Comment on above: Type 2 diabetes gordy itus with diabetic polyneuropathy, without long-term current use of insulin ([facility]) (Primary Dx); Essential hypertension; Peripheral vascular disease ([facility]); ASCVD (arteriosclerotic cardiovascular disease); Class 1 obesity due to excess calories with serious comorbidity and body mass index (BMI) of 30.0 to 30.9 in adult; Myalgia Start: 05-02-2024 End: 05-02-2024 ambulatory JOSH G [facility] Start: 04-24-2024 End: 04-24-2024 Refill Josh Maciel DO Work Phone: [facility] Start: 04-04-2024 End: 04-04-2024 ambulatory Shady BREEN Facility:[facility] Start: 03-22-2024 End: 03-22-[address] [facility] Work Phone: Start: 03-22-2024 End: 03-22-2024 Patient encounter procedure [facility] Work Phone: Start: 03-22-2024 End: 03-22-2024 Office outpatient visit 25 minutes Jade Sims MD Work Phone: [facility] Comment on above: ASCVD (arteriosclero tic cardiovascular disease) (Primary Dx); Peripheral vascular disease ([facility]); Essential hypertension; Hyperlipidemia, unspecified hyperlipidemia type; Other specified diabetes mellitus without complication, without long-term current use of insulin; Obstructive sleep apnea syndrome; Former smoker; BMI 29.0-29.9,adult; Diabetes mellitus type II, non insulin dependent (Multi) Start: 03-22-2024 End: 03-22-2024 ambulatory [facility] Start: 03-08-2024 End: 03-08-2024 ambulatory Shady BREEN Facility:[facility] Start: 02-29-2024 End: 02-29-2024 Orders Only Josh Maciel DO Work Phone: [facility] Internal Medicine - Family Medicine Comment on above: Normocytic normochro alma anemia (Primary Dx); Type 2 diabetes mellitus with diabetic polyneuropathy, without long-term current use of insulin ([facility]); Essential hypertension Start: 02-08-2024 End: 02-08-2024 ambulatory Shady BREEN Facility[facility] Start: 01-12-2024 End: 01-12-2024 ambulatory Josseline Kerr Facility:[facility] Start: 12-28-2023 End: 12-28-2023 ambulatory Shady Sallie JAMSHID [place] Start: 12-28-2023 End: 12-28-2023 ambulatory Shady BREEN Facility:[facility] Start: 11-02-2023 End: 11-02-2023 ambulatory Shadyjane BREEN Facility:[facility] Start: 07-02-2023 Refill Loveetta Maurice JIRA DEVELOPER [facility] Internal Medicine - Family Medicine Comment on above: Type 2 diabetes gordy itus with diabetic polyneuropathy, without long-term current use of insulin (CMS-HCC) (Primary Dx) Start: 07-01-2023 Refill Belkys Angelique JIRA DEVELOPER Liyah watts [facility] Internal Medicine - Family Medicine Comment on above: Type 2 diabetes gordy itus with diabetic polyneuropathy, without long-term current use of insulin (CMS-HCC) (Primary Dx) Start: 06-29-2023 Refill Belkys Angelique JIRA DEVELOPER Liyah dicbing [facility] Internal Medicine - Family Medicine Start: 06-26-2023 Orders Only Josh escobedo DO Work Phone: [facility] Start: 06-25-2023 End: 06-25-2023 Office outpatient visit 25 minutes Josh Maciel DO Work Phone: [facility] Comment on above: Type 2 diabetes gordy itus with diabetic polyneuropathy, without long-term current use of insulin (CMS-HCC) (Primary Dx); Normocytic normochromic anemia; Peripheral vascular disease (CMS-HCC); Thrombocytopenia (CMS-HCC) Start: 06-23-2023 Refill Belkys Angelique JIRA DEVELOPER [employer] Internal Medicine - Family Medicine Start: 06-18-2023 End: 06-18-2023 Office outpatient visit 25 minutes Jade Sims MD Work Phone: [facility] Comment on above: ASCVD (arteriosclero tic cardiovascular disease) (Primary Dx); Peripheral vascular disease (CMS/HCC); Essential hypertension; Hyperlipidemia, unspecified hyperlipidemia type; Other specified diabetes mellitus without complication, without long-term current use of insulin (CMS/HCC); Former smoker; Overweight Start: 06-18-2023 End: 02-01-2024 ambulatory BLANKENSHIP M [facility] Ambulatory Start: 01-05-[address] Jade day Sims Facility:[id number] Start: 10-08-2022 Office outpatient vi sit 25 minutes Josh Maciel Work Phone: [facility] Work Phone: Start: 08-20-2022 Rx Renewal Josh Casillas ng Work Phone: [facility] [address] DO Work Phone: Start: 04-26-2022 End: 04-27-[address] JOSH MACIEL Facility:[facility] Start: 03-27-2022 End: 03-27-2022 Patient encounter procedure DO Josh Casillasng Work Phone: [facility] Start: 03-27-2022 End: 03-27-2022 ambulatory DO Joshlita Bermudezmarcogregg Work Phone: [facility] Work Phone: Start: 03-27-2022 Office outpatient vi sit 25 minutes Aryan [facility] Start: 02-04-[address] Jade day Sims Facility:[id number] Start: 01-10-2022 End: 01-11-[address] JOSH MACIEL Facility:[facility] Start: 12-03-2021 Rx Renewal Josh Casillas ng Work Phone: [facility] DO Work Phone: Start: 11-26-2021 Rx Renewal oJsh Casillas ng Work Phone: [facility] DO Work Phone: Start: 11-19-2021 Rx Renewal Josh Casillas ng Work Phone: [facility] [facility] DO Work Phone: Start: 10-26-2021 End: 10-27-[address] JOSH MACIEL Facility:[facility] Start: 07-24-2021 End: 07-25-[address] SHANICE BAILEY Facility:[facility] Start: 07-13-2021 End: 07-14-[address] SHANICE BAILEY Facility:[facility] Start: 06-04-[address] JOSH Mccord LARAMARCOGREGG Fac ility:[facility] Start: 04-23-2021 ambulatory Joshlita Brand acility: Start: 07-06-2017 End: 07-09-2017 Ambulatory [facility] Procedures Date Procedure Procedure Detail Performing Clinician Start: 10-31-2024 Adult depression scr eening assessment Josh Maciel DO Work Phone: Start: 05-04-2024 End: 05-04-2024 Colonoscopy Josh Maciel DO Work Phone: Start: 05-02-2024 Adult depression scr eening assessment Josh Maciel DO Work Phone: Start: 05-02-2024 Microalbumin [Mass/v olume] in Urine by Test strip Belkys Angelique JIRA DEVELOPER Start: 04-01-2024 Diabetic retinal eye exam Josh Maciel DO Work Phone: Start: 06-25-2023 Adult depression scr eening assessment Josh Maciel DO Work Phone: Start: 06-19-2023 Lipid panel Jade barker MD Work Phone: Start: 06-18-2023 Aspartate aminotrans ferase [Enzymatic activity/volume] in Serum or Plasma JADE SIMS Start: 06-18-2023 Basic metabolic 2000 panel - Serum or Plasma JADE SIMS Start: 06-18-2023 CBC panel - Blood by Automated count JADE SIMS Start: 06-18-2023 Lipid panel JADE LUNDY [facility] Start: 06-18-2023 Alanine aminotransfe rase [Enzymatic activity/volume] in Serum or Plasma JADE SIMS Start: 05-04-2023 Adult depression scr eening assessment Belkys Angelique JIRA DEVELOPER Start: 05-04-2023 Microalbumin [Mass/v olume] in Urine by Test strip Belkys Angelique JIRA DEVELOPER Start: 05-13-2022 Diabetic retinal eye exam Belkys Angelique JIRA DEVELOPER Start: 04-26-[address] PINO BREEN Comment on above: Performed By: #### P SAD #### [facility] [address] [place] [address] Dr. Juan Alberto Carranza Start: 07-06-2017 Mri any jt upper ext remity w/o contrast matrl EILEEN PURVIS Start: 04-07-2014 Colonoscopy Jade ge MD Work Phone: Angioplasty of blood vessel Josh Maciel Work Phone: Decompression of med kristin nerve Josh Maciel Work Phone: Percutaneous translu giovani coronary angioplasty Josh Maciel Work Phone: Repair of shoulder Josh Maciel Work Phone: Screening for malign ant neoplasm of colon [facility] Other Surgical procedure Josh Maciel Work Phone: Comment on above: History of Stent Ind ications; Total colonoscopy Josh thapa Work Phone: Total replacement of hip Yohan Maciel Work Phone: Plan of Treatment Date Care Activity Detail Author Start: 05-04-2034 Screening for malignant neoplasm of colon [facility] Start: 04-08-2029 Screening for malignant neoplasm of colon Colon Cancer Screening 5 Year Sigmoidoscopy First Opinion Comment on above: Postponed from 10/19/2000 (Not Indicated ) Start: 04-01-2026 Glaucoma screening Diabetes: Retinopathy Screening [facility] Start: 10-31-2025 Adult BMI Follow Up Plan Adult BMI Follow Up Plan First Opinion Start: 10-31-2025 Adult BMI Screening Adult BMI Screening [facility] Start: 10-31-2025 Depression Screening Depression Screening [facility] Start: 10-31-2025 Fall Risk Screening Fall Risk Screening [facility] Start: 10-31-2025 Tobacco Screening [facility] Start: 09-20-2025 End: 09-20-2025 Patient encounter procedure 09/20/2025 8:40 AM EDT Office Visit [facility] [address] [place] [address] Jade Sims MD [address] [place] [address] [facility] Start: 05-03-2025 End: 05-03-2025 Patient encounter procedure 05/03/2025 9:30 AM EST [facility] [address] [place] [place] [address] Josh Maciel DO [address] [place] [address] [facility] Start: 05-02-2025 Adult BMI Screening Adult BMI Screening [facility] Start: 05-02-2025 Depression Screening Depression Screening [facility] Start: 05-02-2025 Fall Risk Screening Fall Risk Screening [facility] Start: 05-02-2025 Tobacco Screening Tobacco Screening [facility] Start: 05-02-2025 Urine screening for protein Urine Microalbumin [facility] Start: 04-01-2025 Glaucoma screening Diabetic Ophthalmology Exam [facility] Start: 01-16-2025 Influenza vaccination [facility] Start: 12-27-2024 End: 12-27-2025 Alanine aminotransferase [Enzymatic activity/volume] in Serum or Plasma by With P-5'-P Alanine Aminotransferase Lab Routine ASCVD (arteriosclerotic cardiovascular disease) Mixed hyperlipidemia Expected: 12/27/2024 (Approximate), Expires: 12/27/2025 [facility] Service Area Work Phone: Comment on above: Expected: 12/27/2024 (Approximate), Expi res: 12/27/2025 Start: 12-27-2024 End: 12-27-2025 Aspartate aminotransferase [Enzymatic activity/volume] in Serum or Plasma by With P-5'-P Aspartate Aminotransferase Lab Routine ASCVD (arteriosclerotic cardiovascular disease) Mixed hyperlipidemia Expected: 12/27/2024 (Approximate), Expires: 12/27/2025 [facility] Work Phone: Comment on above: Expected: 12/27/2024 (Approximate), Expi res: 12/27/2025 Start: 12-27-2024 End: 12-27-2025 Basic metabolic 2000 panel - Serum or Plasma Basic Metabolic Panel Lab Routine ASCVD (arteriosclerotic cardiovascular disease) Essential hypertension Expected: 12/27/2024 (Approximate), Expires: 12/27/2025 [facility] Work Phone: Comment on above: Expected: 12/27/2024 (Approximate), Expi res: 12/27/2025 Start: 12-27-2024 End: 12-27-2025 CBC panel - Blood by Automated count CBC Lab Routine ASCVD (arteriosclerotic cardiovascular disease) Peripheral vascular disease Expected: 12/27/2024 (Approximate), Expires: 12/27/2025 [facility] Work Phone: Comment on above: Expected: 12/27/2024 (Approximate), Expi res: 12/27/2025 Start: 12-27-2024 End: 12-27-2025 Lipid 1996 panel - Serum or Plasma Lipid Panel Lab Routine ASCVD (arteriosclerotic cardiovascular disease) Mixed hyperlipidemia Expected: 12/27/2024 (Approximate), Expires: 12/27/2025 [facility] Work Phone: Comment on above: Expected: 12/27/2024 (Approximate), Expi res: 12/27/2025 Start: 12-27-2024 End: 12-27-2024 Patient encounter procedure 12/27/2024 8:50 AM EDT Office Visit [facility] [address] [facility] [address] [place] [address] Jade Sims MD [address] [place] [address] [facility] Start: 10-31-2024 End: 10-31-2024 Patient encounter procedure 10/31/2024 9:00 AM EDT Office Visit [facility] [address] [place] [address] Josh Maciel DO [address] [place] [address] [facility] Start: 07-04-2024 DTaP,Tdap and Td Vaccines (2 - Td or Tdap) DTaP,Tdap and Td Vaccines (2 - Td or Tdap) [facility] Start: 07-04-2024 DTaP/Tdap/Td Vaccines (2 - Td or Tdap) DTaP/Tdap/Td Vaccines (2 - Td or Tdap) [facility] Start: 06-25-2024 Adult BMI Screening Adult BMI Screening [facility] Start: 06-25-2024 Depression Screening Depression Screening [facility] Start: 06-25-2024 Fall Risk Screening Fall Risk Screening [facility] Start: 06-25-2024 Tobacco Screening Tobacco Screening [facility] Start: 05-18-2024 COVID-19 Vaccine ( season) COVID-19 Vaccine () [facility] Comment on above: Postponed from 01/17/2024 (Patient Refus ed) Start: 05-04-2024 Adult BMI Screening Adult BMI Screening [facility] Start: 05-04-2024 Depression Screening Depression Screening [facility] Start: 05-04-2024 Diabetic foot examination Diabetic Foot Exam [facility] Start: 05-04-2024 Fall Risk Screening Fall Risk Screening [facility] Start: 05-04-2024 Tobacco Screening Tobacco Screening [facility] Start: 05-04-2024 Urine screening for protein [facility] Start: 05-04-2024 [facility] Start: 05-02-2024 End: 05-02-2024 Patient encounter procedure 05/02/2024 9:30 AM EST Office Visit [facility] [address] [place] [address] Josh Maciel, DO [address] [place] [address] [facility] Start: 04-07-2024 Screening for malignant neoplasm of colon [facility] Start: 03-22-2024 End: 03-22-2025 Alanine aminotransferase [Enzymatic activity/volume] in Serum or Plasma by With P-5'-P Alanine Aminotransferase Lab Routine ASCVD (arteriosclerotic cardiovascular disease) Hyperlipidemia, unspecified hyperlipidemia type Expected: 03/22/2024 (Approximate), Expires: 03/22/2025 [facility] Service Area Work Phone: Comment on above: Expected: 03/22/2024 (Approximate), Expi res: 03/22/2025 Start: 03-22-2024 End: 03-22-2025 Aspartate aminotransferase [Enzymatic activity/volume] in Serum or Plasma by With P-5'-P Aspartate Aminotransferase Lab Routine ASCVD (arteriosclerotic cardiovascular disease) Hyperlipidemia, unspecified hyperlipidemia type Expected: 03/22/2024 (Approximate), Expires: 03/22/2025 [facility] Work Phone: Comment on above: Expected: 03/22/2024 (Approximate), Expi res: 03/22/2025 Start: 03-22-2024 End: 03-22-2025 Basic metabolic 2000 panel - Serum or Plasma Basic Metabolic Panel Lab Routine ASCVD (arteriosclerotic cardiovascular disease) Essential hypertension Expected: 03/22/2024 (Approximate), Expires: 03/22/2025 [facility] Work Phone: Comment on above: Expected: 03/22/2024 (Approximate), Expi res: 03/22/2025 Start: 03-22-2024 End: 03-22-2025 CBC panel - Blood by Automated count CBC Lab Routine ASCVD (arteriosclerotic cardiovascular disease) Expected: 03/22/2024 (Approximate), Expires: 03/22/2025 [facility] Work Phone: Comment on above: Expected: 03/22/2024 (Approximate), Expi res: 03/22/2025 Start: 03-22-2024 End: 03-22-2025 Lipid 1996 panel - Serum or Plasma Lipid Panel Lab Routine ASCVD (arteriosclerotic cardiovascular disease) Hyperlipidemia, unspecified hyperlipidemia type Expected: 03/22/2024 (Approximate), Expires: 03/22/2025 [facility] Work Phone: Comment on above: Expected: 03/22/2024 (Approximate), Expi res: 03/22/2025 Start: 03-22-2024 End: 03-22-2024 Patient encounter procedure 03/22/2024 8:40 AM EST Office Visit [facility] [address] [place] [address] Jade Sims MD [address] [place] [address] [facility] Start: 01-17-2024 COVID-19 Vaccine ( season) COVID-19 Vaccine ( season) [facility] Start: 01-17-2024 COVID-19 Vaccine ( season) COVID-19 Vaccine ( season) [facility] Start: 01-17-2024 COVID-19 Vaccine ( season) COVID-19 Vaccine ( season) [facility] Start: 01-17-2024 COVID-19 Vaccine ( season) COVID-19 Vaccine ( season) [facility] Start: 01-17-2024 COVID-19 Vaccine ( season) COVID-19 Vaccine ( season) [facility] Start: 01-17-2024 Influenza vaccination Influenza Vaccine [facility] Start: 09-18-2023 Medicare Annual Wellness Visit Medicare Annual Wellness Visit [facility] Start: 06-25-2023 End: 06-25-2023 Patient encounter procedure 06/25/2023 10:00 AM EST Office Visit [facility] [address] [place] [address] Josh Maciel DO [address] [place] [address] [facility] Start: 06-18-2023 End: 06-18-2024 Alanine aminotransferase [Enzymatic activity/volume] in Serum or Plasma by With P-5'-P Alanine Aminotransferase Lab Routine ASCVD (arteriosclerotic cardiovascular disease) Peripheral vascular disease (CMS/HCC) Essential hypertension Hyperlipidemia, unspecified hyperlipidemia type Other specified diabetes mellitus without complication, without long-term current use of insulin (CMS/HCC) Expected: 06/18/2023 (Approximate), Expires: 06/18/2024 [facility] Service Area Work Phone: Comment [...] Expected: 06/18/2023 (Approximate), Expires: 06/18/2024 [facility] Work Phone: Comment on above: Expected: 06/18/2023 (Approximate), Expi res: 06/18/2024 Start: 06-18-2023 End: 06-18-2024 Basic metabolic 2000 panel - Serum or Plasma Basic Metabolic Panel Lab Routine ASCVD (arteriosclerotic cardiovascular disease) Peripheral vascular disease (CMS/HCC) Essential hypertension Hyperlipidemia, unspecified hyperlipidemia type Other specified diabetes mellitus without complication, without long-term current use of insulin (CMS/HCC) Expected: 06/18/2023 (Approximate), Expires: 06/18/2024 [facility] Work Phone: Comment on above: Expected: 06/18/2023 (Approximate), Expi res: 06/18/2024 Start: 06-18-2023 End: 06-18-2024 CBC panel - Blood by Automated count CBC Lab Routine ASCVD (arteriosclerotic cardiovascular disease) Peripheral vascular disease (CMS/HCC) Essential hypertension Hyperlipidemia, unspecified hyperlipidemia type Other specified diabetes mellitus without complication, without long-term current use of insulin (CMS/HCC) Expected: 06/18/2023 (Approximate), Expires: 06/18/2024 [facility] Work Phone: Comment on above: Expected: 06/18/2023 (Approximate), Expi res: 06/18/2024 Start: 06-18-2023 End: 06-18-2024 Lipid 1996 panel - Serum or Plasma Lipid Panel Lab Routine ASCVD (arteriosclerotic cardiovascular disease) Peripheral vascular disease (CMS/HCC) Essential hypertension Hyperlipidemia, unspecified hyperlipidemia type Other specified diabetes mellitus without complication, without long-term current use of insulin (CMS/HCC) Expected: 06/18/2023 (Approximate), Expires: 06/18/2024 [facility] Work Phone: Comment on above: Expected: 06/18/2023 (Approximate), Expi res: 06/18/2024 Start: 06-18-2023 FUV, Provider: Jade Sims, Status: Pen, Time: 9:00 AM FUV, Provider: Jade Sims, Status: Pen, Time: 9:00 AM [facility] Work Phone: Start: 05-13-2023 Glaucoma screening [facility] Start: 01-16-2023 COVID-19 Vaccine () COVID-19 Vaccine () [facility] Start: 01-16-2023 COVID-19 Vaccine () COVID-19 Vaccine () [facility] Start: 01-16-2023 COVID-19 Vaccine (7 - 2023-24 season) COVID-19 Vaccine ( season) [facility] Start: 01-05-2023 AOILIVC, Provider: CECILIA MICHAELI ULTRASOUND 01,[id number], Status: Pen, Time: 7:45 AM AOILIVC, Provider: CECILIA HHVI ULTRASOUND 01,[id number], Status: Pen, Time: 7:45 AM [facility] Work Phone: Start: 10-08-2022 FUV, Provider: Jade Sims, Status: Pen, Time: 8:40 AM FUV, Provider: Jade Sims, Status: Pen, Time: 8:40 AM [facility] [employer] 250 DO Work Phone: Start: 02-04-2022 FUV, Provider: Jade Sims, Status: Pen, Time: 8:30 AM FUV, Provider: Jade Sims, Status: Pen, Time: 8:30 AM [facility] [employer] 250 DO Work Phone: Start: 2015 RSV High Risk: (Elderly (60+) or Population) (1 - Risk 60-74 years 1-dose series) RSV High Risk: (Elderly (60+) or Population) (1 - Risk 60-74 years 1-dose series) [facility] Start: 10-19-2005 Prostate specific antigen measurement PSA [facility] Cancer [facility]ening [facility] [facility] Start: 10-19-2000 Screening for malignant neoplasm of colon Colon Cancer Screening 5 Year Sigmoidoscopy [facility] [employer] [facility] Start: 10-19-1973 Adult BMI Follow Up Plan Adult BMI Follow Up Plan [facility] Start: 10-19-1973 Hepatitis C screening Hepatitis C Screening [facility] Start: 10-19-1965 Diabetic foot examination Diabetes: Foot Exam [facility] Start: 10-19-1965 Glaucoma screening Diabetes: Retinopathy Screening [facility] Start: 10-19-1956 MMR Vaccines (1 of 1 - Standard series) MMR Vaccines (1 of 1 - Standard series) [facility] Start: 1955 Hemoglobin A1c measurement Diabetes: Hemoglobin A1C [facility] Start: 1955 Lipid panel Lipid Panel [facility] Start: 1955 Medicare Annual Wellness Visit Medicare Annual Wellness Visit (AWV) [facility] Start: 1955 Screening for malignant neoplasm of colon [facility] End: 02-28-2025 Basic metabolic 2000 panel - Serum or Plasma Basic Metabolic Panel Lab Routine Essential hypertension 1 Occurrences starting 02/29/2024 until 02/28/2025 First Opinion Comment on above: 1 Occurrences starting 02/29/2024 until 02/28/2025 End: 02-28-2025 CBC panel - Blood by Automated count CBC Lab Routine Normocytic normochromic anemia 1 Occurrences starting 02/29/2024 until 02/28/2025 First Opinion Comment on above: 1 Occurrences starting 02/29/2024 until 02/28/2025 End: 10-31-2025 Comprehensive metabolic 2000 panel - Serum or Plasma Comprehensive metabolic panel Lab Routine Essential hypertension 1 Occurrences starting 10/31/2024 until 10/31/2025 [employer] Work Phone: Comment on above: 1 Occurrences starting 10/31/2024 until 10/31/2025 End: 02-28-2025 Hemoglobin A1c/Hemoglobin.total in Blood Hemoglobin A1c Lab Routine Type 2 diabetes mellitus with diabetic polyneuropathy, without long-term current use of insulin ([facility]) 1 Occurrences starting 02/29/2024 until 02/28/2025 [employer] Work Phone: Comment on above: 1 Occurrences starting 02/29/2024 until 02/28/2025 End: 10-31-2025 Hemoglobin A1c/Hemoglobin.total in Blood Hemoglobin A1c Lab Routine Type 2 diabetes mellitus with diabetic polyneuropathy, without long-term current use of insulin ([facility]) 1 Occurrences starting 10/31/2024 until 10/31/2025 First Opinion Comment on above: 1 Occurrences starting 10/31/2024 until 10/31/2025 End: 10-31-2025 Lipid 1996 panel - Serum or Plasma Lipid profile Lab Routine Hyperlipidemia, unspecified hyperlipidemia type 1 Occurrences starting 10/31/2024 until 10/31/2025 First Opinion Comment on above: 1 Occurrences starting 10/31/2024 until 10/31/2025 End: 05-02-2025 Microalbumin - Albumin: Creatinine Urine Ratio Microalbumin - Albumin: Creatinine Urine Ratio Lab Routine Type 2 diabetes mellitus with diabetic polyneuropathy, without long-term current use of insulin ([facility]) 1 Occurrences starting 05/02/2024 until 05/02/2025 [facility] Work [facility]: Comment on above: 1 Occurrences starting 05/02/2024 until 05/02/2025 Patient Education Colon polyps K now your Meds [facility] Work Phone: Immunizations Immunization Date Immunization Notes Care Provider Rahel powell 03-23-2024 Influenza, High-dose , Quadrivalent Josh Furlong DO Work Phone: [facility] 03-23-2024 influenza virus vacc ine, unspecified formulation Josh Laralong DO Work Phone: [facility] 02-05-2023 Influenza, High-dose , Quadrivalent [facility] 02-05-2023 influenza virus vacc ine, unspecified formulation [facility] 04-14-2022 pneumococcal conjuga te vaccine, 13 valent Belkys Angel[facility] 04-14-2022 Prevnar 20 0.5 ML Intramuscular Suspension Prefilled Syringe Josh Maciel Work Phone: [facility] Work Phone: 02-18-2021 Pfizer-BioNTech COVI D-19 Vacc 30 MCG/0.3ML Intramuscular Suspension Josh G Larang Work Phone: [facility] 08-08-2020 Pfizer-BioNTech COVI D-19 Vacc 30 MCG/0.3ML Intramuscular Suspension Josh G Laralong Work Phone: [facility] Work Phone: 08-05-2020 Pfizer Purple Cap SARS-CoV-2 Jade Sims MD Work Phone: [facility] Work Phone: 07-18-2020 Moderna COVID-19 Vac cine 100 MCG/0.5ML Intramuscular Suspension Josh Mccord [employer] Work Phone: [facility] Work Phone: 07-18-2020 Pfizer-BioNTEmirates Biodiesel COVI D-19 Vacc 30 MCG/0.3ML Intramuscular Suspension Josh Mccord [employer] Work Phone: [facility] Work Phone: 07-16-2020 COVID-19, mRNA, LNP- S, PF, 30mcg/0.3mL Dose [facility] 05-08-2020 pneumococcal polysaccharide vaccine, 23 valent Josh Mccord [employer] Work Phone: [facility] 02-16-2020 influenza virus vacc ine, unspecified formulation Josh Mccord [employer] Work Phone: [facility] Work Phone: 02-16-2020 influenza, injectabl e, quadrivalent, preservative free Jade Sims MD Work Phone: [facility] Work Phone: 02-16-2020 influenza, seasonal, injectable [facility] 06-29-2019 zoster vaccine recombinant Josh Mccord [employer] Work Phone: [facility] Work Phone: 04-28-2019 zoster vaccine recombinant Josh Mccord [employer] Work Phone: [facility] Work Phone: 03-18-2019 influenza virus vacc ine, unspecified formulation Josh Mccord [employer] Work Phone: [facility] Work Phone: 03-18-2019 influenza, seasonal, injectable [facility] 03-02-2019 influenza, injectabl e, quadrivalent, contains preservative Josh G Furlong Work Phone: [facility] Work Phone: 04-13-2018 Influenza, injectabl e, Madin [place] Canine Kidney, preservative free, quadrivalent Josh G Furlong Work Phone: [facility] Work Phone: 03-18-2018 influenza virus vacc ine, unspecified formulation Josh G Furlong Work Phone: [facility] Work Phone: 04-20-2017 influenza, injectabl e, quadrivalent, preservative free Josh G Furlong Work Phone: [facility] Work Phone: 03-31-2017 influenza, injectabl e, quadrivalent, preservative free Josh G Furlong Work Phone: [facility] Work Phone: 03-26-2017 influenza virus vacc ine, unspecified formulation [facility] 03-18-2017 influenza virus vacc ine, unspecified formulation Josh G Furlong Work Phone: [facility] [employer] DO Work Phone: 02-16-2016 influenza virus vacc ine, unspecified formulation Josh G Furlong Work Phone: [facility] Work Phone: 03-18-2015 influenza, seasonal, injectable Josh G Furlong Work Phone: [facility] Work Phone: 02-15-2015 influenza virus vacc ine, unspecified formulation Josh G Furlong Work Phone: [facility] DO Work Phone: 07-04-2014 pneumococcal conjuga te vaccine, 13 valent Josh Mccord [employer] Work Phone: [place] [address] DO Work Phone: 07-04-2014 tetanus toxoid, redu leonel diphtheria toxoid, and acellular pertussis vaccine, adsorbed Josh Mccord [employer] Work Phone: [place] [address] DO Work Phone: 02-22-2014 influenza virus vacc ine, whole virus Josh Mccord [facility] Work Phone: [place] [address] DO Work Phone: 07-18-2013 influenza virus vacc ine, unspecified formulation Josh Bermudezng Work Phone: [place] [address] DO Work Phone: 05-18-2011 influenza virus vacc ine, unspecified formulation [facility] 03-18-2011 influenza virus vacc ine, unspecified formulation [facility] 05-18-2009 influenza virus vacc ine, unspecified formulation [facility] 03-18-2009 influenza virus vacc ine, unspecified formulation Josh Bermudezng Work Phone: [place] [address] DO Work Phone: influenza virus vacc ine, unspecified formulation Josh Bermudezng Work Phone: [place] [address] DO Work Phone: Comment on above: [id number] [id number] Payers Date Payer Category Payer Self-pay [id number] 2022 Commercial Indemnity [facility] [id number] 2022 Unknown 2020 Medicare [id number] 2020 Medicare [id number] 1959 Medicare [id number] 1959 Self-pay [id number] 1959 Unknown [id number] 1955 Unknown [id number] 2.840.1.646397.3.579.2.3 56 1955 Unknown [id number] 2.840.1.458687.3.579.2.3 56 1955 Unknown [id number] 2.840.1.886101.3.579.2.5 93 1955 Unknown [id number] .0.1.627431.3.579.2.5 93 1955 Unknown [id number] 2.16.840.1.895687.3.579.2.5 93 1955 Unknown [id number] 2.16840.1.234448.3.579.2.5 93 1955 Unknown [id number] 2.16840.1.686573.3.579.2.5 93 1955 Unknown [id number] 2.16840.1.568342.3.579.2.5 93 1955 Unknown [id number] 2.16.840.1.984663.3.579.2.5 93 1955 Unknown [id number] 2.16.840.1.273713.3.579.2.5 93 1955 Unknown [id number] 2.16.840.1.148428.3.579.2.1 068 1955 Unknown [id number] 2.16.840.1.527294.3.579.2.1 244 1955 Unknown [id number] 2.16.840.1.780705.3.579.2.1 244 1955 Unknown [id number] 2.16.840.1.853170.3.579.2.7 27 1955 Unknown [id number] 2.16.840.1.217257.3.579.2.7 27 1955 Unknown [id number] 2.16.840.1.556343.3.579.2.7 27 1955 Unknown [id number] 2.16.840.1.107274.3.579.2.7 27 1955 Unknown [id number] 2.16.840.1.624683.3.579.2.7 27 1955 Unknown [id number] 2.16.840.1.708945.3.579.2.1 286 1955 Unknown [id number] 2.16.840.1.509394.3.579.2.1 286 1955 Unknown [id number] 2.16.840.1.014821.3.579.2.1 286 1955 Unknown [id number] 2.16.840.1.631310.3.579.2.7 27 1955 Unknown [id number] 2.16.840.1.228206.3.579.2.7 27 1955 Unknown [id number] 2.16.840.1.520451.3.579.2.7 27 1955 Unknown [id number] 2.16.840.1.551197.3.579.2.7 27 1955 Unknown [id number] 2.16.840.1.644327.3.579.2.7 27 1955 Unknown [id number] 2.16.840.1.987799.3.579.2.7 1955 Unknown [id number] 2.16.840.1.905010.3.579.2.7 27 1955 Unknown [id number] 2.16.840.1.333223.3.579.2.7 1955 Unknown [id number] 2.16.840.1.901195.3.579.2.7 1955 Unknown [id number] 2.16.840.1.795890.3.579.2.7 1955 Unknown [id number] 2.16.840.1.924034.3.579.2.7 27 1955 Unknown [id number] 2.16.840.1.035203.3.579.2.7 1955 Unknown [id number] 2.16.840.1.264913.3.579.2.7 1955 Unknown [id number] 2.16.840.1.953994.3.579.2.7 27 Unknown [id number] 2.16.840.1.790214.3.579.2.5 31 Social History Date Type Detail Facility Start: 05-26-2023 End: 12-27-2024 Alcohol use Alcohol use -[facility] DO Work Phone: Comment on above: 1-2 cups of coffee d aily; Start: 05-26-2023 End: 12-27-2024 Sex Assigned At [facility] [employer] Other Start: 04-08-2019 End: 05-26-2023 Tobacco smoking status NHIS Ex-smoker (finding) [facility] Start: 1955 Sex Assigned At Male F [facility] Start: 03-19-1974 End: 05-09-1996 History of tobacco use Current smoker [facility] Work Phone: Start: 03-19-1974 End: 05-09-1996 History of tobacco use Cigarette Smoker [facility] Work Phone: Start: 03-19-2022 End: 05-26-2023 Tobacco use and exposure Smokeless tobacco non-user [facility] Work Phone: Start: 06-18-2023 End: 12-27-2024 Alcohol intake Current drinker of alcohol (finding) [facility] Work Phone: Start: 1955 Sex Assigned At Not on file U [facility] Work Phone: Start: 06-08-2023 End: 03-22-2024 Exposure to SARS-CoV-2 (event) Not sure [facility] Start: 03-27-2022 Tobacco smoking stat us MAIS Never smoked tobacco (finding) [facility] Start: 12-21-2014 End: 06-09-2024 Sex Male (finding) [facility] Has the [email or web address], oil, or water company threatened to shut off services in your home in past 12Mo No [facility] Do you belong to any clubs or organizations such as episcopal groups, unions, fraternal or athletic groups, or [...] occasion? Less than monthly [facility] Start: 04-11-2022 How hard is it for y ou to pay for the very basics like food, housing, medical care, and heating Not hard at all [facility] [employer] [facility] Do you feel stress - tense, restless, nervous, or anxious, or unable to sleep at night because your mind is troubled all the time - these days [OSQ] Not at all [facility] [employer] [facility] Start: 03-20-2022 Alcohol Comment Occasional [facility] How hard is it for y ou to pay for the very basics like food, housing, medical care, and heating Not very hard [facility] [employer] [facility] Medical Equipment Procedure Code Equipment Code Equipment Origin al Text Equipment Identifier Dates Accu-Chek Carley Plus test strips TEST ONCE DAILY [id number] End: 06-29-2023 Accu-Chek Fastcl ix Lancet Drum USE ONCE DAILY DIRECTED [id number] End: 06-29-2023 Accu-Chek FastCl ix Lancing Device [id number] End: 07-02-2023 Accu-Chek Carley Plus test strips TEST ONCE DAILY [id number] Start: 06-29-2023 End: 07-02-2023 Accu-Chek Fastcl ix Lancet Drum USE ONCE DAILY DIRECTED [id number] Start: 06-29-2023 End: 07-02-2023 Accu-Chek Carley Plus test strips TEST ONCE DAILY [id number] Start: 07-03-2023 End: 08-04-2024 Accu-Chek Fastcl ix Lancet Drum USE ONCE DAILY DIRECTED [id number] Start: 07-03-2023 End: 08-04-2024 Accu-Chek FastCl ix Lancing Device [id number] Start: 07-03-2023 End: 08-04-2024 Accu-Chek Carley Plus test strips TEST ONCE DAILY [id number] Start: 07-03-2023 End: 11-01-2024 Accu-Chek Fastcl ix Lancet Drum USE ONCE DAILY DIRECTED [id number] Start: 07-03-2023 End: 08-04-2024 Accu-Chek Fastcl ix Lancet Drum USE ONCE DAILY DIRECTED [id number] Start: 08-04-2024 Accu-Chek FastCl ix Lancing Device [id number] Start: 08-04-2024 Accu-Chek Carley Plus test strips TEST ONCE DAILY [id number] Start: 08-04-2024 End: 10-31-2024 Accu-Chek Fastcl ix Lancet Drum USE ONCE DAILY DIRECTED [id number] Start: 08-04-2024 Accu-Chek Carley Plus test strips TEST ONCE DAILY [id number] Start: 10-31-2024 End: 11-01-2024 1 strip by other route in the morning. [id number] Start: 11-01-2024 Goals Date Patient Goal Desired Activity /State Clinical Notes 07-24-2021 to 12-27-2024 Jade Sims MD - 12/27/2024 8:50 AM EDTPatient Jan Maciel DO - 10/31/2024 9:00 AM EDTTelephone Encounter - Belkys Merino CMA - 08/08/2024 5:06 PM EDT Note Date & Type Note Facility 12-27-2024 History of Presen t illness Narrative HPI Patient is in the office for [...] along with vascular examination was unremarkable except for femoral bruits bilaterally. 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 [...] Scribe Attestation By signing my name below, IBuffy LPN, Scribe attest that this documentation has been prepared under the direction and in the presence of Jade Sims MD. Provider Attestation - Scribe documentation All medical record entries made by the Scribe were at my direction and personally dictated by me. I have reviewed the chart and agree that the record accurately reflects my personal performance of the history, physical exam, discussion and plan. documented in this encounter [facility] Work Phone: 12-27-2024 Instructions Buffy Funez LPN - 12/27/2024 8:50 AM [...] up 9 months documented in this encounter [facility] Work Phone: 11-14-2024 Note Patient Education Urology Cystoscopy Cystoscopy is a procedure that is used to help diagnose and sometimes treat conditions that affect the lower urinary tract. The lower urinary tract includes the bladder and the urethra. The urethra is the tube that drains urine from the bladder. Cystoscopy is done using a thin, tube-shaped instrument with a light and camera at the end (cystoscope). The cystoscope may be hard or flexible, depending on the goal of the procedure. The cystoscope is inserted through the urethra, into the bladder. Cystoscopy may be recommended if you have: ??? Urinary tract infections that keep coming back. ??? Blood in the urine (hematuria). ??? An inability to control when you urinate (urinary incontinence) or an overactive bladder. ??? Unusual cells found in a urine sample. ??? A blockage in the urethra, such as a urinary stone. ??? Painful urination. ??? An abnormality in the bladder found during an intravenous pyelogram (IVP) or CT scan. Cystoscopy may also be done to remove a sample of tissue to be examined under a microscope (biopsy). Tell a health care provider about: ??? Any allergies you have. ??? All medicines you are taking, including vitamins, herbs, eye drops, creams, and mgaf-xvf-dcreflc medicines. ??? Any problems you or family members have had with anesthetic medicines. ??? Any blood disorders you have. ??? Any surgeries you have had. ??? Any medical conditions you have. ??? Whether you are or may be . What are the risks? Generally, this is a safe procedure. However, problems may occur, including: ??? Infection. ??? Bleeding. ??? Allergic reactions to medicines. ??? Damage to other structures or organs. What happens before the procedure? Medicines Ask your health care provider about: ??? Changing or stopping your regular medicines. This is especially important if you are taking diabetes medicines or blood thinners. ??? Taking medicines such as aspirin and ibuprofen. These medicines can thin your blood. Do not take these medicines unless your health care provider tells you to take them. ??? Taking kxek-nel-rjolntv medicines, vitamins, herbs, and supplements. Tests You may have an exam or testing, such as: ??? X-rays of the bladder, urethra, or kidneys. ??? CT scan of the abdomen or pelvis. ??? Urine tests to check for signs of infection. General instructions ??? Follow instructions from your health care provider about eating or drinking restrictions. ??? Ask your health care provider what steps will be taken to help prevent infection. These steps may include: ? Washing skin with a germ-killing soap. ? Taking antibiotic medicine. ??? Plan to have a responsible adult take you home from the hospital or clinic. What happens during the procedure? You will be given one or more of the following: ? A medicine to help you relax (sedative). ? A medicine to numb the area (local anesthetic). ??? The area around the opening of your urethra will be cleaned. ??? The cystoscope will be passed through your urethra into your bladder. ??? Germ-free (sterile) fluid will flow through the cystoscope to fill your bladder. The fluid will stretch your bladder so that your health care provider can clearly examine your bladder gordon. ??? Your doctor will look at the urethra and bladder. Your doctor may take a biopsy or remove stones. ??? The cystoscope will be removed, and your bladder will be emptied. The procedure may vary among health care providers and hospitals. What can I expect after the procedure? After the procedure, it is common to have: ??? Some soreness or pain in your abdomen and urethra. ??? Urinary symptoms. These include: ? Mild pain or burning when you urinate. Pain should stop within a few minutes after you urinate. This may last for up to 1 week. ? A small amount of blood in your urine for several days. ? Feeling like you need to urinate but producing only a small amount of urine. Follow these instructions at home: Medicines ??? Take wovu-qfi-bspvsvw and prescription medicines only as told by your health care provider. ??? If you were prescribed an antibiotic medicine, take it as told by your health care provider. Do not stop taking the antibiotic even if you start to feel better. General instructions ??? Return to your normal activities as told by your health care provider. Ask your health care provider what activities are safe for you. ??? If you were given a sedative during the procedure, it can affect you for several hours. Do not drive or operate machinery until your health care provider says that it is safe. ??? Watch for any blood in your urine. If the amount of blood in your urine increases, call your health care provider. ??? Follow instructions from your health care provider about eating or drinking restrictions. ??? If a tissue sample was removed for testing (biopsy) during your (more content not included)... [facility] 10-31-2024 History of Presen t illness Narrative Subjective Patient ID: Mike Muñiz is a 69 y.o. male. Mike presents for a diabetic visit. He is taking his medications. He does not have any side effects. He has no new problems to report. He checks his fasting blood sugars once a day. He did not bring in his readings today. He sees the urologist and had blood work done earlier today for him so he would like to take the lab orders and go to the hospital on his own. Diabetes The following portions of the patient's history were reviewed and updated as appropriate: allergies, current medications, past family history, past medical history, past social history, past surgical history, problem list, and medication reconciliation was completed including current medication and post discharge medication. Review of Systems Constitutional: Negative. HENT: Negative. Eyes: Negative. Respiratory: Negative. Cardiovascular: Negative. Gastrointestinal: Negative. Endocrine: Negative. Genitourinary: Negative. Musculoskeletal: Negative. Skin: Negative. Neurological: Negative. Hematological: Negative. Psychiatric/Behavioral: Negative. Objective Physical Exam Vitals reviewed. Constitutional: General: He is not in acute distress. Appearance: He is obese. He is not ill-appearing. HENT: Head: Normocephalic. Eyes: General: No scleral icterus. Neck: Vascular: No carotid bruit. Cardiovascular: Rate and Rhythm: Normal rate and regular rhythm. Heart sounds: Normal heart sounds. No murmur heard. Pulmonary: Effort: Pulmonary effort is normal. No respiratory distress. Breath sounds: Normal breath sounds. No wheezing, rhonchi or rales. Abdominal: General: Bowel sounds are normal. Palpations: Abdomen is soft. Musculoskeletal: Cervical back: Neck supple. Right lower leg: No edema. Left lower leg: No edema. Lymphadenopathy: Cervical: No cervical adenopathy. Skin: Coloration: Skin is not ashen or [...] without long-term current use of [place] [place] - Hemoglobin A1c; Future - blood sugar diagnostic (ACCU-CHEK CARLEY PLUS TEST STRP) strip; Accu-Chek Carley Plus test strips TEST ONCE DAILY Check A1c. Renew test strips for once a day use. Essential hypertension - Comprehensive metabolic panel; Future His blood pressure is excellent. Continue current regimen. Check CMP. Class 1 obesity due to excess calories with serious comorbidity and body mass index (BMI) of 30.0 to 30.9 in adult He is obese. It is contributing to diabetes, high blood pressure and high cholesterol. He would benefit from weight loss. He is starting to use a pedal machine when he was sitting in his chair. He does it for 20-30 minutes most days. He was congratulated and encouraged to continue. Patient noted to have elevated BMI and the following intervention(s) were applied: encouragement to exercise and prescribed diet education. Hyperlipidemia, unspecified hyperlipidemia type - Lipid profile; Future Check lipid panel Peripheral vascular disease He has peripheral vascular disease. Follow up with cardiology as directed. Thrombocytopenia He was getting a CBC done 4 his other labs. Will monitor his platelets. May need to see specialist documented in this encounter [facility] 08-08-2024 Miscellaneous Notes Drug milvia didn't get it documented in this encounter [facility] 08-08-2024 Telephone encounter Note Minna steel didn't get it [facility] 07-18-2024 Note Patient Education Urology Hypogonadism, Male [...] Follow these instructions at home: ??? Take soeg-tjp-fxriogj and prescription medicines only as told by [...] you discuss any (more content not included)... [facility] 05-02-2024 Note Patient Education Urology Hypogonadism, Male [...] Follow these instructions at home: ??? Take qmfr-lmp-ixfjesx and prescription medicines only as told by [...] you discuss any (more content not included)... [facility] 05-02-2024 History of Presen t illness Narrative Subjective Patient ID: Mike Muñiz is a 68 y.o. male. Right presents today for diabetic and cardiovascular recheck. He is taking his medications. He is not having any side effects. He is seeing the energy efficiency finance manager. Does have intermittent bilateral thigh pain that [...] Exam Vitals reviewed. Exam conducted with a maintenance technician present (Jagruti Dumont MS3). Constitutional: General: He [...] polyneuropathy, without long-term current use of insulin ([facility]) - Microalbumin - Albumin: Creatinine Urine Ratio; Future His A1c was very good at 6.7%. Continue current regimen. Check ACR Essential hypertension Blood pressure at goal. Continue current regimen Peripheral vascular disease ([facility]) Stable. His thigh pain does not seem [...] possibly statin induced documented in this encounter [facility] 03-22-2024 Evaluation note Diagnosis Onset Date Resolution Coronary artery disease acute N ov2023 10:38am Diabetes acute November 5th, 2024 10:38am Essential hypertension acute No vember 2023 10:38am ROCK (obstructive sleep apnea) acute March 22 10:38am [facility] Work Phone: [phone]) 343-876911-05-2024 History of Present illness Narrative* Jade Sims MD - 03/22/2024 8:40 AM EST Subjective Mike Muñiz is a 68 y.o. 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 Provider Attestation - Scribe documentation All medical record entries made by the Scribe were at my direction and personally dictated by me. Ihave reviewed the chart and agree that the record accurately reflects my personal performance of the history, physical exam, discussion and plan. documented in this [facility] Work Phone: 1(123) 902-625211-05-2024 Instructions* Patient Instructions* Buffy Funez LPN - [...] [facility] Phone: [phone]) 843-803710-14-2024 Miscellaneous Notes* Telephone Encounter - Kelly Brandt - 02/29/2024 11:37 AM EDT PATIENT IS COMING IN 05/02 AND WOULD LIKE LABS SENT TO [facility] PLEASE AND THANKK YOU [facility] Telephone encounter Note* Telephone Encounter - Kelly Brandt - 02/29/2024 11:37 AM EDT PATIENT IS COMING IN 05/02 AND WOULD LIKE LABS SENT TO [facility] PLEASE AND THANKK YOU [facility] [employer] [id number] NotePatient Education Urology Hypogonadism, Male Male hypogonadism [...] Follow these instructions at home: ? Take fmep-cyh-cqbljzx and prescription medicines only as told by [...] care provider. Document Revised: (more content not included)...[facility] 07-02-2023 Miscellaneous Notes* Telephone Encounter - Kenzie Richards CMA - 07/02/2023 4:40 PM EST Pt called and needs all GULOSE TESTING supplies sent to [facility] due to medicare only covering them from there. [facility]24 Telephone encounter Note* Telephone Encounter - Kenzie Richards CMA - 07/02/2023 4:40 PM EST Pt called and needs all GULOSE TESTING supplies sent to [facility] due to medicare only covering them from there. [facility]-14-20[facility] Miscellaneous Notes* Telephone Encounter - Belkys Merino CMA - 07/01/2023 1:20 PM EST Pt called yaritza cedeno called him stated his insurance is not covering his lancets or strips there wanted to know if you could point him in the right direction as he is not sure * Telephone Encounter - Josh Maciel DO - 07/01/2023 1:20 PM EST It [...] what was going on [facility]24 Telephone encounter Note* Telephone Encounter - Belkys Merino CMA - 07/01/2023 1:20 PM EST Pt called yaritza cedeno called him stated his insurance is not covering his lancets or strips there wanted to know if you could point him in the right direction as he is not sure [facility]02-14-2024 Telephone encounter Note* Telephone Encounter - Josh Maciel DO - 07/01/2023 1:20 PM EST It sounds like a formulary issue. They should cover some type of glucometer and test strips. Have him check his formulary and see which brand is covered and then let us know. [facility]02-14-2024 Telephone encounter Note* Telephone Encounter - Belkys Merino CMA - 07/01/2023 1:20 PM EST He did say when he got home he was going to call his insurance and see what was going on [facility]02-08-2024 History of Present illness Narrative* Josh Maciel DO - 06/25/2023 10:00 AM EST Subjective Patient ID: Mike Muñiz is a 67 y.o. male. Mike presents today to discuss several issues regarding his medications. He had labs done ordered bythe energy efficiency finance manager at another facility and is here to [...] April 08, [address] [place] in [place] and it was normal. He has been getting pain in his thighs lately. His energy efficiency finance manager told him it was probably his circulation [...] polyneuropathy, without long-term current use of insulin ([facility]) We discussed his medications. He would like [...] is aware of that. Peripheral vascular disease ([facility]) Follow-up with cardiology as directed. Controlling risk factors are important. His lipids and CMP were essentially at goal. documented in this encounterThe [facility]ict[facility] [id number] History of Present illness Narrative* Jade Sims MD - 06/18/2023 9:00 AM EST Subjective Mike Muñiz is a 67 y.o. 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 [facility] Work Phone: 1(418) 641-475902-01-2024 Instructions* Patient Instructions* Willian Sumner MA - [...] your visit. [facility] Work Phone: [phone]) 256-543811-10-2022 Evaluation note* Encounter Date Diagnosis Assessment Notes [...] sleepiness, or poor response to treatment. . [employer] Other 03-09-2022 NotePROCEDURE: XR KNEE RT 4V [...] Electronically authenticated by: EILEEN QURESHI Date: 2021-07-24 17:01[facility] Center[facility] noteNo assessment information availableMercy Health St. [facility] Work Phone: Evaluation note* Diagnosis ASCVD (arteriosclerotic cardiovascular disease)- Primary Unspecified cardiovascular disease Peripheral vascular disease (CMS/HCC) Unspecified peripheral vascular disease Essential hypertension Unspecified essential hypertension Hyperlipidemia, unspecified hyperlipidemia type Other specified diabetes mellitus without complication, without long-term current use of insulin (CMS/HCC) Former smoker Personal history of tobacco use, presenting hazards to health Overweight documented in this encounter [facility] Work Phone: Evaluation note* Diagnosis ASCVD (arteriosclerotic cardiovascular disease)- Primary Unspecified cardiovascular disease Peripheral vascular disease ([facility]) Unspecified peripheral vascular disease Essential hypertension Unspecified [...] uncontrolled documented in this encounter [facility] Work Phone: Evaluation note* Diagnosis Type 2 diabetes mellitus with diabetic polyneuropathy, without long-term current use of insulin ([facility])- Primary Normocytic normochromic anemia Unspecified anemia Peripheral vascular disease ([facility]) Unspecified peripheral vascular disease Thrombocytopenia ([facility]) Unspecified thrombocytopenia documented [facility] [facility]* Diagnosis Type 2 diabetes mellitus with diabetic polyneuropathy, without long-term current use of insulin ([facility])- Primary documented in [facility] encounter [facility] [facility]* Diagnosis Type 2 diabetes mellitus with diabetic polyneuropathy, without long-term current use of insulin ([facility])- Primary documented in this encounter [facility] [facility]* Diagnosis Normocytic normochromic anemia- Primary Unspecified anemia Type 2 diabetes mellitus with diabetic polyneuropathy, without long-term current use of insulin ([facility]) Essential hypertension Unspecified essential hypertension documented in this encounter [facility] [facility]* Diagnosis Type 2 diabetes mellitus with diabetic polyneuropathy, without long-term current use of insulin ([facility])- Primary Essential hypertension Unspecified essential hypertension Peripheral vascular disease ([facility]) Unspecified peripheral vascular disease ASCVD (arteriosclerotic cardiovascular disease) Unspecified cardiovascular disease Class 1 obesity due to excess calories with serious comorbidity and body mass index (BMI) of 30.0 to 30.9 in adult Myalgia Unspecified myalgia and myositis documented in this encounter [facility] [facility]* Diagnosis Type 2 diabetes mellitus with diabetic polyneuropathy, without long-term current use of insulin (CMS-HCC) documented in this encounter [facility] [facility]* Diagnosis Type 2 diabetes mellitus with diabetic polyneuropathy, without long-term current use of insulin [place] Primary Essential hypertension Unspecified essential hypertension Class 1 obesity due to excess calories with serious comorbidity and body mass index (BMI) of 30.0 to 30.9 in adult Hyperlipidemia, unspecified hyperlipidemia type Peripheral vascular disease Unspecified peripheral vascular disease Thrombocytopenia Unspecified thrombocytopenia documented in [facility] encounter [facility] [facility]* Diagnosis Type 2 diabetes mellitus with diabetic polyneuropathy, without long-term current use of insulin ([facility] Primary [facility] Diagnosis ASCVD (arteriosclerotic cardiovascular [...] peripheral vascular disease documented in this encounter [facility] Work Phone: History general Narrative - Reported* Type Description Date Medical History ROCK (obstructive sleep apnea) Medical History CAD in [place] artery Surgical History heart stent Surgical History left hip replacement [employer] Other InstructionsNot on filedocumented in this encounter [...] Health SystemInstructionsNot on filedocumented in this encounter [facility] [facility] SystemInstructionsNot on filedocumented in this encounter [facility] [facility] SystemReason for referral (narrative)* Consultation (Routine) - Authorized Specialty Diagnoses / Procedures Referred By Kevin t Referred To Contact Cardiology Diagnoses ASCVD (arteriosclerotic cardiovascular disease) Peripheral vascular disease (CMS/HCC) Essential hypertension Hyperlipidemia, unspecified hyperlipidemia type Other specified diabetes mellitus without complication, without long-term current use of insulin (CMS/HCC) Procedures Follow Up In Cardiology Jade Sims MD [address] [place] [address] [address], [address] [address] Jade Sims MD [address] [place] [address] 2, [address] [address] Referral ID Status Reason Start Date Expiration Date V isits Requested Visits Authorized [id number] Authorized 06/18/2023 06/17/2024 1 1 [facility] Work Phone: Summary Purpose Family History [...] March 222023 10:38am Chief Complaint * MIKE MUÑIZ is being seen for a 9 month [...] with tobacco use. 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, currently has [...] aortic aneurysm which is scheduled * Jade Sims MD, FACC Additional Source Comments (unrecognized sect [...] DATE CREATED AUTHOR AUTHOR'S ORGANIZ ATION 02/16/2022 [facility] DATE CREATED AUTHOR AUTHOR'S ORGANIZ ATION 02/16/2022 [employer] DATE CREATED AUTHOR AUTHOR'S ORGANIZ ATION 05/08/2022 [facility] DATE CREATED AUTHOR AUTHOR'S ORGANIZ ATION 01/07/2023 [facility] DATE CREATED AUTHOR AUTHOR'S ORGANIZ ATION 04/19/2024 [facility] DATE CREATED AUTHOR AUTHOR'S ORGANIZ ATION 05/04/2024 [facility] DATE CREATED AUTHOR AUTHOR'S ORGANIZ ATION 05/05/2024 [facility] DATE CREATED AUTHOR AUTHOR'S ORGANIZ ATION 05/19/2024 [facility] DATE CREATED AUTHOR AUTHOR'S ORGANIZ ATION 11/01/2024 [facility] DATE CREATED AUTHOR AUTHOR'S ORGANIZ ATION 12/15/2024 [facility] Care Teams (unrecognized sec tion and content) Team Status: Active Member Role Status Dates Josh Maciel DO Primary Care Provider Active Team Status: Inactive Member Role Status Dates Josh Maciel DO Primary Care Provider Active Start: March 22, 2024 End: March 22, 2024 Lyn Pollack NP Attending Provider Active Start: March 22, 2024 End: March 22, 2024 Team Status: Inactive Member Role Status Dates Josh Maciel DO Primary Care Provider Active Aryan Garcia MD Attending Provider Active Retail Team Leader Relationship Specialty Start Date End Date VinnygreggYohanJoshlita Hanashley [address] [facility] [place] [address] PCP - General 05/18/99 Retail Team Leader Relationship Specialty Start Date End Date Josh Maciel PCP - General 05/18/99 Team Status: Inactive Member Role Status Dates Josh Maciel DO Primary Care Provider Active Start: May 04, 2024 End: May 04, 2024 Shanique Chiang MD Attending Provider Active Start: May 04, 2024 End: May 04, 2024 Team Status: Active Member Role Status Dates Josh Maciel DO Primary Care Provider Active Start: May 04, 2024 Shanique Chiang MD Attending Provider, Other Provider Active Start: May 04, 2024 Team Status: Active Member Role Status Dates Josh Maciel DO Primary Care Provider Active Start: May 04, 2024 Jaymie Krueger CMA Attending Provider Active St art: May 04, 2024 Team Status: Inactive Member Role Status Dates Josh Maciel DO Primary Care Provider Active Start: June 09, 2024 End: June 09, 2024 Lyn Pollack NP Attending Provider Active Start: June 09, 2024 End: June 09, 2024 Retail Team Leader Relationship Specialty Start Date End Date Josh Maciel [address] [place] [address] PCP - General Family Medicine 03/19/22 Retail Team Leader Relationship Specialty Start Date End Date Josh Maciel [address] [place] [address] PCP - General Family Medicine 03/19/22 Retail Team Leader Relationship Specialty Start Date End Date AnaiJosh [address] [place] [address] PCP - General Family Medicine 03/19/22 Retail Team Leader Relationship Specialty Start Date End Date AnaiJosh [address] [place] [address] PCP - General Family Medicine 03/19/22 Retail Team Leader Relationship Specialty Start Date End Date VinnygreggJosh [address] [place] [address] PCP - General Family Medicine 03/19/22 Retail Team Leader Relationship Specialty Start Date End Date AnaiJosh [address] [place] [address] PCP - General Family Medicine 03/19/22 Retail Team Leader Relationship Specialty Start Date End Date AnaiJosh [address] [place] [address] PCP - General Family Medicine 03/19/22 Retail Team Leader Relationship Specialty Start Date End Date LaramarcoJosh escobedo DO [address] [place] [address] PCP - General Family Medicine 03/19/22 Retail Team Leader Relationship Specialty Start Date End Date LaramarcoJosh escobedo DO [address], [place] [address] PCP - General Family Medicine 03/19/22 Retail Team Leader Relationship Specialty Start Date End Date LarajennyJosh DO [address], [place] [address] PCP - General Family Medicine 03/19/22 Retail Team Leader Relationship Specialty Start Date End Date LaramarcoJosh escobedo DO [address], [place] [address] PCP - General Family Medicine 03/19/22 Retail Team Leader Relationship Specialty Start Date End Date LaramarcoJosh escobedo DO [address], [place] [address] PCP - General Family Medicine 03/19/22 Retail Team Leader Relationship Specialty Start Date End Date LaramarcoJosh escobedo DO [address], [place] [address] PCP - General Family Medicine 03/19/22 Retail Team Leader Relationship Specialty Start Date End Date AnaiJosh [address] [place] [address] PCP - General Family Medicine 03/19/22 Retail Team Leader Relationship Specialty Start Date End Date Josh Maciel DO PCP - General 05/18/99 Goals (unrecognized section and content) Goals may be documented in a n alternate section Reason for Visit (unrecogniz ed section and content) Reason Comments Follow-up 9 month ASCVD (arter iosclerotic cardiovascular disease) Specialty Diagnoses / Procedures Referred By Kevin roman Referred To Contact Cardiology Diagnoses ASCVD (arteriosclerotic cardiovascular disease) Procedures Follow Up In Cardiology Jade Sims MD [address] [place] [address], [address] [address] Phone: tel: fax: Jade Sims MD [address] [place] [address], [address] [address] Phone: tel: fax: Referral ID Status Reason Start Date Expiration Date V isits Requested Visits Authorized [id number] Authorized 03/22/2024 03/22/2025 1 1 Reason Onset Date Comments Med Refill 08/08/2024 [...] ASCVD (arteriosclerotic cardiovascular disease) Peripheral vascular disease ([facility]) Essential hypertension Hyperlipidemia, unspecified hyperlipidemia type Other specified diabetes mellitus without complication, without long-term current use of insulin Procedures Follow Up In Cardiology Jade Sims MD [address] [place] [address] Phone: tel: fax: Jade Sims MD [address] [facility] [address] [place] [address] Phone: tel: fax: Referral ID Status Reason Start Date Expiration Date V isits Requested Visits Authorized [id number] Authorized 06/18/2023 06/17/2024 1 1 Reason Comments [...] BE BASED ON THE PRIMARY CLINICAL RECORDS. [employer] provides no warranty or guarantee of the accuracy or completeness of information in this document.
--- OUTSIDE RECORDS SUMMARY | 2024-12-28 07:45 | XMS_ITS | Encounter Summary ---
Author Organization [facility] Address [address] [place] [address] Phone Care Team Providers Care Product Tester Fiberglass Name Role Phone Josh Ospina DO Primary Care Provider Encounter Details Date Type Department Care Team (Late st Contact Info) Description 10/21/2019 Orders Only [facility] [address] [place] [address] Conversion, Onbase Social History Tobacco Use Types [...] Description 09/20/2025 8:40 AM EDT Office Visit [facility] [address] [phone] Jade Gale MD [address] [facility] [address] [place] [address] Scheduled Orders Name Type Priority Associated Diagnoses Orde r Schedule OUTSIDE LAB SCAN Lab Ordered: 10/21/2019 documented as of this encounter Visit Diagnoses Not on filedocumented in this encounter Care Teams Product Tester Fiberglass Relationship Specialty Start Date End Date Josh Ospina DO PCP - General 05/18/99 documented as of this encounter
--- OUTSIDE RECORDS SUMMARY | 2024-12-28 07:45 | XMS_ITS | Encounter Summary ---
Author Organization [facility] Address [address] [place] [address] Phone Care Team Providers Care Surveyor'S Assistant Name Role Phone Josh Ospina DO Primary Care Provider Encounter Details Date Type Department Care Team (Late st Contact Info) Description 08/10/2020 Orders Only [facility] [address] [place] [address] Conversion, Onbase Social History Tobacco Use Types [...] Description 09/20/2025 8:40 AM EDT Office Visit [facility] [address] [address] Jade Gale MD [address] [facility] [address] [place] [address] Scheduled Orders Name Type Priority Associated Diagnoses Orde r Schedule OUTSIDE LAB SCAN Lab Ordered: 08/10/2020 documented as of this encounter Visit Diagnoses Not on filedocumented in this encounter Care Teams Surveyor'S Assistant Relationship Specialty Start Date End Date Josh Ospina DO PCP - General 05/18/99 documented as of this encounter
--- OUTSIDE RECORDS SUMMARY | 2024-12-28 07:45 | XMS_ITS | Encounter Summary ---
Author Organization [facility] Address [address] [place] [address] Phone Care Team Providers Care Direct Marketing Analyst Name Role Phone Josh Ospina DO Primary Care Provider Encounter Details Date Type Department Care Team (Late st Contact Info) Description 05/24/2020 Orders Only [facility] [address] [place] [address] Conversion, Onbase Social History Tobacco Use Types [...] Description 09/20/2025 8:40 AM EDT Office Visit [facility] [address] [address] Jade Gale MD 703 [facility] [address] [place] [address] Scheduled Orders Name Type Priority Associated Diagnoses Orde r Schedule OUTSIDE LAB SCAN Lab Ordered: 05/24/2020 documented as of this encounter Visit Diagnoses Not on filedocumented in this encounter Care Teams Direct Marketing Analyst Relationship Specialty Start Date End Date Josh Ospina DO PCP - General 05/18/99 documented as of this encounter
--- OUTSIDE RECORDS SUMMARY | 2024-12-28 07:45 | XMS_ITS | Encounter Summary ---
Author Organization [facility] Address [address] [place] [address] Phone Care Team Providers Care Laborer Laboratory Name Role Phone Josh Ospina DO Primary Care Provider Encounter Details Date Type Department Care Team (Late st Contact Info) Description 01/10/2022 Orders Only [facility] [address] [place] [address] Conversion, Onbase Social History Tobacco Use Types [...] Description 09/20/2025 8:40 AM EDT Office Visit [facility] [address] [phone] Jade Gale MD 703 [facility] 2, [address] [place] [address] Scheduled Orders Name Type Priority Associated Diagnoses Orde r Schedule OUTSIDE LAB SCAN Lab Ordered: 01/10/2022 documented as of this encounter Visit Diagnoses Not on filedocumented in this encounter Care Teams Laborer Laboratory Relationship Specialty Start Date End Date Josh Ospina DO PCP - General 05/18/99 documented as of this encounter
--- OUTSIDE RECORDS SUMMARY | 2024-12-28 07:45 | XMS_ITS | Encounter Summary ---
Author Organization [facility] Address [address] [place] [address] Phone Care Team Providers Care Forensics Team Director Name Role Phone Josh Ospina DO Primary Care Provider Encounter Details Date Type Department Care Team (Latest Contact Info) Description 12/27/2024 Travel Social History Tobacco Use Types Packs/Day Years [...] Description 09/20/2025 8:40 AM EDT Office Visit [facility] [address] [phone] Jade Gale MD 703 [facility] 2, [facility] [address] [place], [place] [id number] documented as of this encounter Visit Diagnoses Not on filedocumented in this encounter Additional Health Concerns Assessment Noted Time A fall risk assessment has been complete d for the patient 03/22/2024 8:42 AM EST documented as of this encounter Care Teams Forensics Team Director Relationship Specialty Start Date End Date Josh Ospina DO PCP - General 05/18/99 documented as of this encounter
[2024-12-28 07:54] LABS: Hematocrit 40.0 % (42.0-54.0); Hemoglobin 13.7 g/dL (14.0-18.0); Immature Granulocytes Abs Auto 0.01 10^3/uL (0.00-0.03); Immature Granulocytes Pct Auto 0.2 % (0.0-0.5); Lymphocytes Absolute Auto 1.3 10^3/uL (1.2-3.8); Mean Corpuscular HGB Conc 34.3 g/dL (29.9-35.2); Mean Corpuscular Hemoglobin 31.9 pg (25.9-34.0); Mean Corpuscular Volume 93.0 fL (80.0-94.0); Platelet Count 148 10^3/uL (150-450); Red Blood Count 4.30 10^6/uL (4.70-6.10); White Blood Count 5.1 10^3/uL (4.0-11.0)
[2024-12-28 08:31] LABS: Alanine Aminotransferase 23 U/L (16-63); Anion Gap 12.2; Aspartate Amino Transferase 12 U/L (15-37); Blood Urea Nitrogen 15.0 mg/dL (7.0-18.0); Calcium 8.6 mg/dL (8.5-10.1); Carbon Dioxide 28.0 mmol/L (21.0-32.0); Chloride 102 mmol/L (98-107); Cholesterol 116 mg/dL (<=200); Estimated GFR (African America >60 (>=60 mL/min/1.73m^2); Estimated GFR (Non-African Ame >60 (>=60 mL/min/1.73m^2); Glucose 151 mg/dL (74-106); HDL Cholesterol 52 mg/dL (40-60); Potassium 4.2 mmol/L (3.5-5.1); Sodium 138 mmol/L (136-145); Triglycerides 57 mg/dL (<=150); VLDL CHOLESTEROL 11.4 mg/dL
== END 2024-12-28 07:39 | disposition home or self-care (01) ==
PROVIDERS: PCP Family Medicine; Visit Provider Internal Medicine Cardiovascular Disease
DX: I25.10 Atherosclerotic heart disease of native coronary artery without angina pectoris (principal); E78.5 Hyperlipidemia, unspecified; I10 Essential (primary) hypertension; I73.9 Peripheral vascular disease, unspecified
CPT/HCPCS: 36415; 80048; 80061; 84450; 84460; 85025

== ENCOUNTER 2025-04-15 08:06 | Outpatient (OUT) | payer MEDICARE, OTHER, SELFPAY ==
--- OUTSIDE RECORDS SUMMARY | 2025-04-15 08:12 | XMS_ITS | Clinical Summary ---
Author Organization [facility] Address [address] [place] [address] Phone Care Team Providers Care Events Director Name Role Phone Josh Ospina Primary Care Provider Allergies Active AllergyReactionsCriticalityNoted DqazIpelpdwtZcadusvxxtJszlf09/09/2024 Medications MedicationSigDispense QuantityRefillsLast FilledStart DateEnd DateStatus hydroxychloroquine (Plaquenil) 200 mg tablet Take 1 tablet (200 mg) by mouth 2 times a day.10/03/2019Active metFORMIN (Glucophage) 500 mg tablet Take 2 tablets (1,000 mg) by mouth 2 times a day.03/13/2020Active SITagliptin phosphate (Januvia) 100 mg tablet Take 1 tablet (100 mg) by mouth once daily.03/26/2020Active tamsulosin (Flomax) 0.4 mg 24 hr capsule Take 1 capsule (0.4 mg) by mouth once daily.07/10/2020ctive Farxiga 10 mg Take 1 tablet (10 mg) by mouth once daily in the morning. Take before meals. Active meloxicam (Mobic) 7.5 mg tablet Take 1 tablet (7.5 mg) by mouth early in the morning..02/16/2024ctive testosterone cypionate (Depo-Testosterone) 200 mg/mL injection INJECT 300 mg (1.5 ml) INTRAMUSCULARLY EVERY FOUR weeks12/28/2023ctive sildenafil (Viagra) 100 mg tablet 1 tablet (100 mg) if needed.Active ramipril (Altace) 10 mg capsule Indications:Essential hypertensionTake 1 capsule (10 mg) by mouth once daily. 90 capsule 3:13 PM EDT03/31/2025Active verapamil SR (Calan-SR) 240 mg ER tablet Indications:Essential hypertensionTake 1 tablet (240 mg) by mouth once daily. 90 tablet /6Active dutasteride (Avodart) 0.5 mg capsule Take 1 capsule (0.5 mg) by mouth once daily.Active clopidogrel (Plavix) 75 mg tablet Indications:ASCVD (arteriosclerotic cardiovascular disease)Take 1 tablet (75 mg) by mouth once daily. 90 tablet 10:29 AM EST/6Active rosuvastatin (Crestor) 10 mg tablet Indications:Mixed hyperlipidemiaTake 1 tablet (10 mg) by mouth once daily at bedtime. 90 tablet 5Active Active Problems ProblemNoted DateDiagnosed DateObesity (BMI 30-39.9)03/22/2024Former smoker 06/18/2023SCVD (arteriosclerotic cardiovascular disease)4Diabetes tmetkmli81/09/2024Essential jqqgnwpmunwm72/09/8037Ryglhiwhbjtelt15/09/2024 Peripheral vascular ieirwqm4405/26/2023Sleep apnea05/26/2023Femoral bruit 05/26/2023 Encounters DateTypeDepartmentCare AfxmOecequconvq00/10/2025Refill [address] [address] Analy Carmona LPN Mixed hyperlipidemiafrom Last 3 Months Immunizations ImmunizationAdministration DatesNext DueFlu vaccine (IIV4), preservative free *Check age/dose*02/16/2020Moderna SARS-CoV-2 Rnxokdbuvdd22/03/2021Pfizer Purple Cap IEPS-ArL-078/08/2020,08/05/2020,1Pneumococcal conjugate vaccine, 13-valent (PREVNAR 13)07/04/2014Pneumococcal polysaccharide vaccine, 23-valent, age 2 years and older (PNEUMOVAX 23)05/08/2020 Family History Medical HistoryRelationNameCommentsColon cancerBrotherHypertensionBrothercardiac disorderBrotherRelationNameStatusCommentsBrother Social History Tobacco UseTypesPacks/DayYears UsedDateSmoking Tobacco: FormerCigarettes Smokeless Tobacco: Never Tobacco Cessation:Counseling Given: Not Answered Alcohol UseStandard Drinks/IkgoWbynaohzTjy82 (1 standard drink = 0.6 oz pure alcohol)Sex and Gender InformationValueDate RecordedSex Assigned at BirthNot on fileLegal HliHwwf53/25/2022 1:11 PM ESTGender IdentityNot on fileSexual OrientationNot on file Last Filed Vital Signs Vital SignReadingTime TakenCommentsBlood Pczflxoy590/50012/27/2024 8:51 AM EDT Gjjjg8466/12/2025 8:51 AM EDTTemperature--Respiratory Rate--Oxygen Saturation-- Inhaled Oxygen Concentration--Nofhpj654 kg (232 lb 3.2 oz)12/27/2024 8:51 AM EDT Engygc256.4 cm (6' 1 )12/27/2024 8:51 AM EDTBody Mass Index30.64012/27/2024 8:51 AM EDT Plan of Treatment DateTypeDepartmentCare Team (Latest Contact Info)Nwpvabykszs39/06/2026 8:40 AM EDTOffice Visit [facility] [address] [phone] Pattie Gale MD 703 [facility] 2, [place] [address] [place] [address] Health MaintenanceDue DateLast DoneCommentsCT Uktsgexrffwn07/04/1956Diabetes: Hemoglobin A1C1955FIT-DNA (Cologuard)1955FIT1955Lipid Panel 1955Medicare Annual Wellness Visit (AWV)1955 7855Bfyhnsqjtylyw00/04/1956 TSH Level1955MMR Vaccines (1 of 1 - Standard series)10/19/1956Hepatitis C Incbrsxfk14/04/1974PSA Prostate Cancer Ilmwuntka66/04/2006RSV High Risk: (Elderly (60+) or Population) (1 - Risk 50-74 years 1-dose series) 10/19/2005Diabetes: Urine Protein Cpfywusuf66/3DTaP/Tdap/Td Vaccines (2 - Td or Tdap)Influenza Vaccine (#1)2024 03/23/2024, 03/16/2024, 02/05/2023, Additional history existsCOVID-19 Vaccine ( season), 08/05/2020, 07/18/2020, Additional history existsDiabetes: Retinopathy Tkffxzxnx42/, 05/13/2022 Gykspukqyah51, 04/07/2014Colorectal Cancer Npdhitgar00/18/2034 Irritable Bowel EzuwmmxbCxmelmfxwtru18/21/2014Zoster VaccinesCompleted 06/29/2019, 04/28/2019Pneumococcal XrdaxwaEwbybesfj56/28/2022, 05/08/2020, 07/04/2014bdominal Aortic Aneurysm (AAA) LqzfhnmafGkhlwawas12/21/2023HIB VaccinesAged OutNo longer eligible based on patient's age to complete this topic HPV VaccinesAged OutNo longer eligible based on patient's age to complete this topicHepatitis A VaccinesAged OutNo longer eligible based on patient's age to complete this topicHepatitis B VaccinesAged OutNo longer eligible based on patient's age to complete this topicIPV VaccinesAged OutNo longer eligible based on patient's age to complete this topicMeningococcal VaccineAged OutNo longer eligible based on patient's age to complete this topicRotavirus VaccinesAged Out No longer eligible based on patient's age to complete this topic Procedures Procedure NamePriorityDate/TimeAssociated DiagnosisCommentsABDOMINAL AORTA/ILIAC/IVC ULTRA01/05/2023 7:58 AM EDT VKWEXYHNWJB88/21/2014 from Last 3 Months or Most Recently Relevant to Health Maintenance Results * Abdominal Aorta/Iliac/IVC Ultra (01/05/2023 7:58 AM EDT)Anatomical Region LateralityModalityUltrasoundSpecimen (Source)Anatomical Location / Laterality Collection Method / VolumeCollection TimeReceived Time01/05/2023 7:58 AM EDT Narrative 01/06/2023 5:29 PM EDT [address], [address], [place] [address] Vascular Lab Report Abdominal Aorta Iliac Ultrasound/IVC Ultrasound Patient Name: ? MIKE MUÑIZ ??Reading Physician: ??[id number] Pattie Gale MD, [facility] Study Date: ? 01/05/2023 ?Referring ? PATTIE GALE Physician: MRN/PID: ?[id number] ? PCP: ?Josh Ospina MD Accession/Order#: [id number] CC Report to: Date of : ?1955 ? Technologist: ? Deidre Jimenez RD, T Gender: ? M ?Technologist 2: Admission Status: Outpatient ?? Location Performed: [facility] Diagnosis/ICD: U11-Phbrsczjn primary hypertension; R09.89-Bruit; I73.9-Peripheral vascular disease, unspecified Indication: ?ASCVD, Former Smoker, SFA X [employer]-2008, Hyperlipidemia, Diabetes, ROCK, Overweight, PTCA-2004 and 2016 Procedure/CPT: 64641 Ultrasound, abdominal aorta, real time with image documentation, screening study for (AAA)-[id number] CONCLUSIONS: Aorta/Common Iliac Arteries/IVC: No evidence of abdominal aortic aneurysm. Imaging & Doppler Findings: AORTA ? AP ?Lateral ?PSV Proximal 1.49 cm 1.36 cm 101.0 cm/s Mid ?1.55 cm 1.43 cm 97.0 cm/s Distal ??1.57 cm 1.51 cm 72.0 cm/s RIGHT ? AP ?Lateral ? PSV FRANCISCO Proximal 1.08 cm 0.81 cm 147.00 cm/s LEFT ? AP ?Lateral ?PSV FRANCISCO Proximal 0.83 cm 0.96 cm 94.00 cm/s [id number] Pattie Gale MD, FACC Final Procedure Note Pattie Gale MD - 01/06/[address], [address], [place] [address] Vascular Lab Report Abdominal Aorta Iliac Ultrasound/IVC Ultrasound Patient Name: MIKE ENGSZ Reading Physician: [id number] Pattie Lee, [facility] Study Date: 01/05/2023 Referring PATTIE GALE Physician: MRN/PID: [id number] PCP: Josh Ospina MD Accession/Order#: [id number] CC Report to: Date of : 1955 Technologist: Deidre Jimenez RD,T Gender: M Technologist 2: Admission Status: Outpatient Location Performed: [facility] Diagnosis/ICD: D11-Odspstvuo primary hypertension; R09.89-Bruit; I73.9-Peripheral vascular disease, unspecified Indication: ASCVD, Former Smoker, SFA X R[employer]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 Imaging & Doppler Findings: AORTA AP Lateral PSV Proximal 1.49 cm 1.36 cm 101.0 cm/s Mid 1.55 cm 1.43 cm 97.0 cm/s Distal 1.57 cm 1.51 cm 72.0 cm/s RIGHT AP Lateral PSV FRANCISCO Proximal 1.08 cm 0.81 cm 147.00 cm/s LEFT AP Lateral PSV FRANCISCO Proximal 0.83 cm 0.96 cm 94.00 cm/s [id number] Pattie Gale MD, FACC at5:29:20 PM Final Authorizing ProviderResult TypeResult StatusPattie Gale MDCV VASCULAR PROCEDURESFinal Result * COLONOSCOPY (04/07/2014)Anatomical RegionLateralityModalityEndoscopy Narrative 04/07/2014 Ordered by an unspecified provider. Authorizing ProviderResult TypeResult StatusOnbase ConversionENDOSCOPY PROCEDURE ORDERABLESFinal Result from Last 3 Months or Most Recently Relevant to Health Maintenance Insurance Care Teams Team MemberRelationshipSpecialtyStart DateEnd Date Josh Ospina DO [facility]05/18/99
--- OUTSIDE RECORDS SUMMARY | 2025-04-15 08:12 | XMS_ITS | CCD ---
Author Organization [facility] Care Team Providers Care Special Effects Artist Name Role Phone EILEEN PURVIS Unavailable Unavai lable JOSH MACIEL Unavailable Unavailable Laralogregg, Josh Sanchez Unavailable Unavailable Unavailable Unavailable Unavailable Baljinder, Dr. Jade Sanz Attending Shantel vailable [facility] Aguilera Primary Care Unavailab clau Sims, Dr. Jade Sanz Referring Shantel vailable MokaneJosh Willy Primary Care Unavailab clau Sims, Dr. Jade Sanz Referring Shantel vailable Sims, Dr. Jade Sanz Attending Shantel vailable Aryan Garcia Unavailable DO Josh Maciel Primary Care Provider MD Aryan Garcia Attending Provider [phone] DR SHADY BREEN Attending Unavailable JANELL, DR JOSH Sanchez Primary Care Unavailable FURLONG, DR JOSH Sanchez Consulting Unavailable DR SHADY BREEN Admitting Unavailable DR SHADY BREEN Consulting Unavailable FURLONG, DR JOSH Sanchez Primary [...] Sims, Dr. Jade Sanz Attending Shantel vailable Furjenny, Dr. Josh Aguilera Primary Care Unava ilable Laramarcong Josh GONGORA Primary Care Provider Larang Josh GONGORA Primary Care Provider Shady BREEN Attending Unavailable Shady BREEN Attending Unavailable Josseline Kerr Attending Unavailable Shady BREEN Admitting Unavailable Shady BREEN Attending Unavailable Shady BREEN Attending Unavailable JOSH MACIEL Referring Unavailable VINNYNGJOSH Primary Care Unavailable Shanique Chiang Attending Unavailable Shanique Chiang Admitting Unavailable LaralongJosh Primary Care Unavailable Furlong DO Josh Primary Care Provider Shanique Chiang MD Attending Provider Larang Josh GONGORA Primary Care Provider Laralong Josh GONGORA Primary Care Provider [phone] JOSH MACIEL Attending Unavailable JOSH MACIEL Referring Unavailable FURLONG, JOSH Sanchez Primary Care Unavailable FURMARCONG, JOSH Sanchez Attending Unavailable FURLONG, JOSH Sanchez Referring Unavailable FURLONG, JOSH Sanchez Primary Care Unavailable Furlong Josh GONGORA Primary Care Provider JADE SIMS Attending Unavailable JADE SIMS Referring Unavailable FURJOSH ANDREW Primary Care Unavailab le JADE SIMS Attending Unavailable JADE SIMS Referring Unavailable JOSH MACIEL Primary Care Unavailab le BREEN, Shady R Attending Unavailable BREEN, Shady R Attending Unavailable BREEN, Shady R Attending Unavailable BREEN, Shady R Attending Unavailable Caitlyn, Cassandra Attending Unavailable Caitlyn, Cassandra Attending Unavailable BREEN, [...] Attending Unavailable BREEN, Shady R Attending Unavailable Allergies Allergy ClassificationReported Allergen(s)Allergy TypeDate of OnsetReaction(s) Facility (20 sources)Ticagrelor; Translations: [Brilinta TABS]Drug Swoknin92[facility]12[facility]1411[facility] ([facility])Bee/Wasp/Ant venom; Translations: [Bee Stings]Propensity to adverse reactions (disorder)[facility] (2 sources)No Known Medication Allergies; Translations: [No Known Medication Allergies]Propensity to adverse reactions (disorder)[facility] (3 sources)Ticagrelor; Translations: [TICAGRELOR]Drug Mfvttkd82-19-2331AqgZdulgw Repository Medications Current Medications MedicationDrug Class(es)DatesSig (Normalized)Sig (Original)blood-glucose meter misc (3 sources)Start: 29-45-0431tqbxa-glucose meter misc Indications: Type 2 diabetes mellitus with diabetic polyneuropathy, without long-term current use of insulin ([facility]) Use daily as directed 1 each 11/01/2024 Activeclopidogrel 75 mg oral tablet (20 sources)P2Y12 Platelet InhibitorStart: 04-08-2019 End: 88-75-2194ubue 1 tablet by mouth in the morningclopidogreL (PLAVIX) 75 mg tablet Take 1 tablet (75 mg total) by mouth in the morning. 03/07/2022 Active Clopidogrel Bisulfate Activedapagliflozin 10 mg oral tablet (20 sources)Sodium-Glucose Cotransporter 2 InhibitorStart: 39-10-0967ehns 1 tablet by mouth in the morningFARXIGA 10 mg tablet TAKE 1 TABLET BY MOUTH IN THE MORNING 30 tablet 5 01/09/2025 ActiveStart: 06-26-2023 End: 80-90-7724ugwa 1 tablet by mouth in the morningdapagliflozin propanediol (FARXIGA) 10 mg tablet Take 1 tablet (10 mg total) by mouth in the morning. 30 tablet 5 07/11/2024 01/09/2025 Discontinueddutasteride 0.5 mg oral capsule (5 sources)5-alpha Reductase InhibitorStart: 44-35-3816cssjapqxwma (AVODART) 0.5 mg capsule Take 1 capsule (0.5 mg total) by mouth. 10/17/2024 Active empagliflozin 10 mg oral tablet (6 sources)Sodium-Glucose Cotransporter 2 InhibitorStart: 06-15-2020 End: 28-10-1558nhaj 1 tablet by mouth once dailyempagliflozin (Jardiance) 10 mg Take 1 tablet (10 mg) by mouth once daily. 0 06/15/2020 06/18/2023 Discontinued (Therapy completed)fluticasone propionate 0.05 mg/actuat metered dose nasal spray (20 sources)Corticosteroidfluticasone propionate (FLONASE) 50 mcg/actuation nasal spray Activefluticasone propionate (FLONASE) 50 mcg/actuation nasal spray fluticasone propionate 50 mcg/actuation nasal spray,suspension Active hydroxychloroquine sulfate 200 mg oral tablet (20 sources)Antimalarial, Antirheumatic AgentStart: 39-61-4466ywns 1 tablet by mouth in the morning, then take 1 tablet by mouth at bedtimehydrOXYchloroQUINE (PLAQUENIL) 200 mg tablet Take 1 tablet (200 mg total) by mouth in the morning and 1 tablet (200 mg total) before bedtime. 03/01/2022 Activemeloxicam 7.5 mg oral tablet (13 sources)Nonsteroidal Anti-inflammatory DrugStart: 84-53-9753zazm 1 tablet by mouth in the morningmeloxicam (MOBIC) 7.5 mg tablet Take 1 tablet (7.5 mg total) by mouth in the morning. 02/16/2024 ActivemetFORMIN hydrochloride 500 mg oral tablet (20 sources)BiguanideStart: 03-13-2020 End: 36-19-9445rkhy 2 tablets by mouth in the morningmetFORMIN (GLUCOPHAGE) 500 mg tablet TAKE 2 TABLETS BY MOUTH IN THE MORNING then TAKE 2 TABLETS BY MOUTH IN THE EVENING; take WITH MEALS 360 tablet 1 02/06/2025 ActiveStart: 04-08-2019 Metformin 1,000 mg Tablet Active 500 MG PO Twice daily April 08, 2019 12:00amStart: 40-96-8676sxtx 500 mg by mouth twice dailyMetformin Active 500 MG PO Twice daily April 08, 2019 12:00amMetformin Activenitroglycerin 0.4 mg sublingual tablet (20 sources)Nitrate Vasodilatornitroglycerin (NITROSTAT) 0.4 MG SL tablet Active ramipril 10 mg oral capsule (20 sources)Angiotensin Converting Enzyme InhibitorStart: 98-82-5030efnc 1 capsule by mouth in the morningramipriL (ALTACE) 10 mg capsule Take 1 capsule (10 mg total) by mouth in the morning. 02/22/2022 ActiveRamipril Active rosuvastatin calcium 10 mg oral tablet (20 sources)HMG-CoA Reductase InhibitorStart: 52-44-1057mfoq 1 tablet by mouth at bedtimerosuvastatin (CRESTOR) 10 mg tablet rosuvastatin 10 mg tablet take 1 tablet by mouth at bedtime 05/04/2023 ActiveRosuvastatin Calcium ActiveCrestor Not-Takingsildenafil 100 mg oral tablet (20 sources)Phosphodiesterase 5 Inhibitor End: 82-74-2907aenavwdhvd (Viagra) 100 mg tablet 1 tablet (100 mg) if needed. Active End: 37-62-4483pvmvihgyfg (Revatio) 20 mg tablet Take 1 tablet (20 mg) by mouth if needed. 0 06/18/2023 Discontinued (Therapy completed)Sildenafil Citrate TABS as needed Quantity: 0 Refills: 0 Ordered: 23-Apr-2021 DO ActiveSITagliptin 100 mg oral tablet (20 sources)Dipeptidyl Peptidase 4 InhibitorStart: 08-77-7280qvhj 1 tablet by mouth once dailySITagliptin phosphate (JANUVIA) 100 mg tablet take 1 tablet by mouth once daily 90 tablet 1 01/06/2024 ActiveStart: 04-08-2019 End: 59-97-6414uqpv 1 tablet by mouth once dailySITagliptin phosphate (JANUVIA) 100 mg tablet take 1 tablet by mouth once daily 90 tablet 1 01/06/2024 Active Lety Activetadalafil 5 mg oral tablet (4 sources)Phosphodiesterase 5 InhibitorStart: 82-40-5138giba 1 tablet by mouth once daily as neededTadalafil (Cialis) 5 mg Tablet Active 5 MG PO Daily as needed for Erectile Dysfunction April 08, 2019 12:00amCialis Not-Taking tamsulosin hydrochloride 0.4 mg oral capsule (20 sources)alpha-Adrenergic BlockerStart: 97-92-9814tmfx 1 capsule by mouth once dailytamsulosin (Flomax) 0.4 mg 24 hr capsule Take 1 capsule (0.4 mg) by mouth once daily. 07/10/2020 Active1 ml testosterone cypionate 200 mg/ml injection (20 sources)AndrogenStart: 69-97-3026dmosjfqmhwsn cypionate (Depo-Testosterone) 200 mg/mL injection INJECT 300 mg (1.5 ml) INTRAMUSCULARLY EVERY FOUR weeks 12/28/2023 ActiveStart: 03-17-2022 End: 92-08-6934lnkkhwdfsgpf (ANDROGEL) 20.25 mg/1.25 gram (1.62 %) gel in metered-dose pump 03/17/2022 05/02/2024 Discontinued (Therapy completed)Start: 08-17-2020 End: 57-43-7405kskkjkohxnhz 20.25 mg/1.25 gram (1.62 %) gel in metered-dose pump Place on the skin. 08/17/2020 03/22/2024 Discontinued (Therapy completed)Start: 14-54-4537Winsqbtgqitk 20.25 MG/ACT (1.62%) Transdermal Gel Quantity: 75 Refills: 0 Ordered: 17-Aug-2020 DO Start : 17-Aug-2020 ActiveStart: 04-08-2019 End: 59-08-6716Xsoeqnvfaxrx Cypionate (Depo-Testosterone) 100 mg/mL Oil Discontinued 100 MG IM EVERY 4 WEEKS April 08, 2019 12:00am April 08, 2019 11:20amtestosterone cypionate (DEPOTESTOTERONE CYPIONATE) 200 mg/mL injection ActiveTestosterone Activeverapamil hydrochloride 240 mg extended release oral tablet (20 sources)Calcium Channel BlockerStart: 04-08-2019 End: 54-20-1003grwj 1 tablet by mouth in the morningverapamil SR (CALAN-SR) 240 mg CR tablet Take 1 tablet (240 mg total) by mouth in the morning. 02/20/2022 ActiveVerapamil HCl Active Completed/Discontinued Medications MedicationDrug Class(es)DatesSig (Normalized)Sig (Original)aspirin 81 mg delayed release oral tablet (15 sources)Platelet Aggregation Inhibitor, Nonsteroidal Anti-inflammatory Drug Start: 04-08-2019 End: 60-60-3870tiia 1 tablet by mouth once dailyAspirin 325 mg Tablet Discontinued 325 MG PO Daily April 08, 2019 12:00am April 08, 2019 1 1:19amStart: 04-08-2019 End: 80-37-3675tpns 1 tablet by mouth once dailyAspirin (Aspir-81) 81 mg Tablet,Delayed Release (Dr/Ec) Discontinued 1 TAB PO Daily April 08, 2019 12:00am April 04, 2024 9:12amAspirin Activecanagliflozin 300 mg oral tablet (3 sources)Sodium-Glucose Cotransporter 2 InhibitorStart: 06-22-2023 End: 24-66-4033npey 1 tablet by mouth in the morningcanagliflozin (INVOKANA) 300 mg tablet Indications: Type 2 diabetes mellitus with diabetic polyneuropathy, without long-term current use of insulin ([facility]) Take 1 tablet (300 mg total) by mouth in the morning. 30 tablet 5 06/22/2023 06/26/2023 Discontinued (Formulary change)gabapentin 300 mg oral capsule (13 sources)Anti-epileptic AgentStart: 04-08-2019 End: 73-00-7986zcqg 1 capsule by mouth at bedtimegabapentin (NEURONTIN) 300 mg capsule Indications: Diabetic polyneuropathy associated with type 2 diabetes mellitus (CMS-HCC) take 1 capsule by mouth at bedtime 30 capsule 2 03/10/2023 06/25/2023 Discontinued (Therapy completed)Gabapentin Activeglimepiride 2 mg oral tablet (4 sources)SulfonylureaStart: 04-08-2019 End: 83-05-1164joho 1 tablet by mouth once daily in the morningGlimepiride 2 mg Tablet Discontinued 2 MG PO Every morning April 08, 2019 12:00am April 08, 2019 11:19amGlimepiride ActiveSuprep Bowel Prep . (1 source)Start: 74-19-6103Tkhvqn Bowel Prep . as directed Orally as directed for 1 dose(s) Mar, Not-Opfktt73 hr trandolapril 4 mg / verapamil hydrochloride 240 mg extended release oral tablet (4 sources)Angiotensin Converting Enzyme Inhibitor, Calcium Channel Fani Start: 04-08-2019 End: 23-80-2956xggi 1 tablet by mouth once dailyTrandolapril-Verapamil (Tarka) 4-240 mg Tablet, Ir - Er, Biphasic 24hr Discontinued 1 TAB PO Daily April 08, 2019 12:00am April 08, 2019 11:20amTarka Not-Taking Problems Active Problems Problem ClassificationProblemDateDocumented DateEpisodic/ChronicCoagulation and hemorrhagic disorders (20 sources)Thrombocytopenic disorder; Translations: [Thrombocytopenia, unspecified]Onset: 719995-23-4928ConpranNukrjznn atherosclerosis and other heart disease (20 sources)Arteriosclerotic vascular disease; Translations: [Cardiovascular disease, unspecified]Onset: 416228-65-9756JrlfhmeKfyvcrhv mellitus with complications (20 sources)Type 2 diabetes mellitus with diabetic neuropathy, unspecified; Translations: [Type 2 diabetes mellitus with diabetic polyneuropathy]Onset: 821465-74-4129FanubpiVmobyrlk mellitus without complication (20 sources)Diabetes mellitus; Translations: [Diabetes mellitus without mention of complication, type II or unspecified type, not stated as uncontrolled]Onset: 958623-47-4129NxnjkhdWweufacba of lipid metabolism (20 sources)Hyperlipidemia; Translations: [Other and unspecified hyperlipidemia] Onset: 645907-82-5604JdtjouaKkcuwfnty hypertension (20 sources)Essential hypertension; Translations: [Unspecified essential hypertension]Onset: 79-35-4198FwmmyjiLxxdgewsakk of prostate (20 sources)Benign prostatic hyperplasia with lower urinary tract symptoms; Translations: [Benign prostatic hypertrophy with outflow obstruction]Onset: 15-07-5781XuxtonnMkakioofjknqpp (1 source)Primary generalized (osteo)arthritis; Translations: [PRIMARY GENERALIZED OSTEOARTHRITIS]Onset: 31-50-5652HqiegasDcrqh and unspecified benign neoplasm (1 source)Tubular adenoma of colon; Translations: [Tubular adenoma of colon] EpisodicOther connective tissue disease (1 source)Muscle pain; Translations: [Myalgia, unspecified site]05-02-2024 EpisodicOther endocrine disorders (5 sources)Testicular hypofunction; Translations: [TESTICULAR HYPOFUNCTION] Onset: 18-60-7865NejaimvGzutx male genital disorders (20 sources)Male erectile dysfunction, unspecified; Translations: [Impotence of organic origin]Onset: 175686-82-0036NfmbznjTztjx nutritional; endocrine; and metabolic disorders (20 sources)Obesity; Translations: [Obesity, unspecified]Onset: 03-19-2022 Resolved: 486386-64-7176CgcovzbJihpq nutritional; endocrine; and metabolic disorders (2 sources)Obesity caused by energy imbalance; Translations: [Class 1 obesity due to excess calories with serious comorbidity and body mass index (BMI) of 30.0 to 30.9 in adult]92-45-7762ZarwdtdAxgwq nutritional; endocrine; and metabolic disorders (1 source)Other obesity due to excess calories; Translations: [Other obesity due to excess calories]Onset: 44-55-2246EuepdoqEbrdk nutritional; endocrine; and metabolic disorders (1 source)Body mass index (BMI) 30.0-30.9, adult; Translations: [Body mass index (BMI) 30.0-30.9, adult]Onset: 88-31-8993IfbykzrAfgei nutritional; endocrine; and metabolic disorders (2 sources)Body mass index 30+ - obesity; Translations: [Obesity, unspecified] Onset: 881215-75-3641TijreozPmaek nutritional; endocrine; and metabolic disorders (2 sources)Obesity, unspecified; Translations: [Obesity, unspecified]Onset: 10-42-9706InlpuhhLvslg nutritional; endocrine; and metabolic disorders (7 sources)Overweight in adulthood with body mass index of 25 or more but less than 30; Translations: [Overweight]Onset: 925734-15-6280NmkfofwbIdrqe nutritional; endocrine; and metabolic disorders (1 source)Overweight; Translations: [Overweight]68-45-6656MrjtplndHjzcixvhej and visceral atherosclerosis (20 sources)Intermittent claudication; Translations: [Peripheral vascular disease, unspecified]Onset: 03-19-2022 Resolved: 198757-40-5822IkwypshTlrcdkk on above:Status post SFA angioplasty 2008;Residual codes; unclassified (8 sources)Sleep apnea; Translations: [Unspecified sleep apnea]Onset: 05-26-2023 91-13-5437DnoegmnVkzekijm codes; unclassified (20 sources)Obstructive sleep apnea syndrome; Translations: [Obstructive sleep apnea (adult) (pediatric)]Onset: 518332-21-3258AjbyvlhYtrnihyd codes; unclassified (2 sources)Obstructive sleep apnea (adult) (pediatric); Translations: [Obstructive sleep apnea (adult)(pediatric)]ChronicResidual codes; unclassified (2 sources)Sleep apnea, unspecified; Translations: [Sleep apnea, unspecified] Onset: 32-74-4746JgdjnnkQnwfexws codes; unclassified (1 source)Family history of colorectal cancer; Translations: [Family hx of colorectal cancer]EpisodicRheumatoid arthritis and related disease (4 sources)Rheumatoid arthritis 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;Translations: [RA W/RH FACTOR MX SITE NO ORGAN/SYS] Onset: 54-60-4657LmmfgwaFlmdaapde and history of mental health and substance abuse codes (13 sources)Ex-smoker; Translations: [Personal history of tobacco use]Onset: 318055-29-4876QxqoxiyfWbbezrpfhjae (20 sources)Hypogonadism; Translations: [Hypogonadism]Onset: 10-06-2017 72-21-2206Exyztsyexfoi (1 source)Obesity, class 1; Translations: [Obesity, class 1]Onset: 05-02-2024 Past or Other Problems Problem ClassificationProblemDateDocumented DateEpisodic/ChronicDeficiency and other anemia (1 source)Anemia; Translations: [Anemia, unspecified]Onset: EpisodicDeficiency and other anemia (20 sources)Normocytic normochromic anemia; Translations: [Anemia, unspecified] Onset: 299266-98-9275TcprzgbtYxjq disorders (20 sources)Mood disordersOnset: 05-04-2023 Resolved: 25-66-118263589931-87-0357Wasee aftercare (1 source)Other terminal gauger (current) drug therapy; Translations: [OTH [facility] CURRENT DRUG THERAPY]Onset: 45-29-8199NhyizqccUvreu and unspecified benign neoplasm (20 sources)Tubular adenoma ; Translations: [Benign neoplasm, unspecified site] Onset: 611315-15-3239LbiiykvnMajpn circulatory disease (2 sources)History of claudication; Translations: [Personal history of unspecified circulatory disease] Resolved: 64-28-5228GbtdmgabTjcqp circulatory disease (4 sources)Femoral bruit; Translations: [Other symptoms involving cardiovascular system]Onset: 525079-89-5301EwmfykabZfudc connective tissue disease (1 source)Impingement syndrome of right shoulder; Translations: [Impingement syndrome of right shoulder]Onset: 22-81-9590RmcwwluoVynga connective tissue disease (20 sources)Right rotator cuff syndrome; Translations: [Unspecified rotator cuff tear or rupture of right shoulder, not specified as traumatic]Onset: 03-19-2022 53-27-6349SpjpqnjyNrhdx connective tissue disease (20 sources)Impingement syndrome of shoulder region; Translations: [Impingement syndrome of unspecified shoulder]Onset: 057510-07-7878InkmxlxzFhryu connective tissue disease (20 sources)Radial styloid tenosynovitis; Translations: [Radial styloid tenosynovitis [de Quervain]]Onset: 787088-65-5398NhnxajxeJsavb non- traumatic joint disorders (4 sources)Pain in right knee; Translations: [PAIN IN RIGHT KNEE]Onset: 09-96-5187RgrkfrxmYpcvu nutritional; endocrine; and metabolic disorders (3 sources)Body mass index (BMI) 29.0-29.9, adult; Translations: [Body mass index (BMI) 29.0-29.9, adult]Onset: 68-10-8317PjpnyvlxGvybq screening for suspected conditions (not mental disorders or infectious disease) (20 sources)History of adenomatous polyp of colon; Translations: [Encounter for screening for malignant neoplasm of colon]Onset: 624887-88-0081Lytefwlc Unclassified (7 sources)Onset: 06-18-2023 Resolved: 53-38-116670584034-13-9416 Results Test NameValueInterpretationReference RangeFacilityAmbulatory Visit Summaryon 58-68-3938Duwjxjbeke Visit SummaryAmbulatory Visit Summary MIKE MUÑIZ :1955 Visit Date:02/03/2025 Ambulatory Visit Instructions Your Diagnosis Hypogonadism male Your Care Team Attending Physician - Shady BREEN MD Primary Care Physician - JOSH MACIEL DO This Is Your Medications List ciprofloxacin (Cipro 500 mg Tab) clopidogrel (clopidogrel 75 mg Tab) dapagliflozin (Farxiga [...] to do next Scheduled Follow-Up Appointments Thursday 8:30 AM EDT With: Where: [facility] [address] [address]- Thursday 8:30 AM EST With: Where: [facility] [address] [address]- Thursday 8:30 AM EST With: Where: [facility] [address] [place] [address]- Thursday 8:45 AM EST With: JAMSHID VILLAVICENCIO, Shady Rizo Where: [facility] [address] [place] [address]- Medications What How Much When Why Instructions Unchanged ciprofloxacin (Cipro 500 mg Tab) 1 Tablets By Mouth Every day BPH with urinary obstruction take one tab day before procedure and one tab after procedure Unchanged clopidogrel (clopidogrel 75 mg Tab) 1 [...] mg/ mL IM Mavis) 400 Milligram Intramuscular Every4 weeks Unchanged verapamil (verapamil 240 mg ER Tab) 1 Tablets Medications and Immunizations Administered Given Depo-Testosterone 200 [...] you for choosing us for your care. Patient Portal You may access all of your results and other medical record information on our secure patient portal. If you are not signed up for this yet, please contact [employer] at [phone] to get signed up today. Language Information Language assistance services are available as needed. [facility]Ambulatory Visit Summaryon 49-82-7795Rjtvcssmxr Visit SummaryAmbulatory Visit Summary JUAN JOSÉ MUÑIZDylon Land :1955 Visit Date:11/14/2024 Ambulatory Visit Instructions Your [...] 2:00 PM EDT Where: [facility] [address] [place] [address]- You Need to Schedule the Following Appointments Follow Up with JAMSHID VILLAVICENCIO, NAHOMI Nixon When: Where: [facility] [address], [facility] [place] [phone] Medications What How Much When Why Instructions New ciprofloxacin (Cipro 500 mg Tab) 1 Tablets By Mouth Every day BPH with urinary obstruction takeone tab day before procedure and one tab after procedure Pickup at [facility] Unchanged dutasteride (dutasteride 0.5 mg Cap) [...] mg/ mL IM Mavis) 400 Milligram Intramuscular Every4 weeks Pickup at [facility] Unchanged clopidogrel (clopidogrel 75 mg [...] Capsules By Mouth Every day Contact prescribing physicianif questions or concerns Unchanged rosuvastatin (Crestor 10 [...] physician if questions or concerns Pharmacy Information [facility]: [address] [place], [place] [id number] [phone] Allergies Bee Stings (Unknown) No Known Medication [...] asking about your offic (more content not included)...[facility] Office/Clinic Noteon 17-48-4054Bkrmxvf Office/Clinic NoteUrology Office/Clinic Note Chief Complaint 4 month f/u [...] post void dribbling. Denies any visible blood orpain of any kind. Incomplete emptying, frequency, intermittency [...] [facility]rology [address], [place] [address] [phone] Additional Instructions: sched cysto, 6 mos w T level Patient Education Cystoscopy Hypogonadism, Male I, Val Alston, personally scribed for Dr. Breen on 11/14/2024 10:09:24. . Documentation recorded by the scribVal mantilla, accurately reflects the services(s) I performed [...] hip (03/01/2018), Carpal tunnel (more content not included)...[facility]-FairhillComment on above:Result Comment: Electronically Signed By: Shady BREEN MD\.br\Date and Time Signed: 11/14/24 10:13 EDT\.br\Electronically Co-Signed By: Val Alston\.br\Date and Time Co-Signed: 11/14/24 10:10 EDTAmbulatory Visit Summaryon 10-17-2024 Ambulatory Visit SummaryAmbulatory Visit Summary MIKE MUÑIZ :1955 Visit Date:10/17/2024 [...] Appointments Thursday 9:15 AM EDT With: Shady BREEN MD Where: [facility] [place] [id number]- Medications What How Much When Why Instructions [...] mg/ mL IM Mavis) 400 Milligram Intramuscular Every4 weeks Unchanged verapamil (verapamil 240 mg ER [...] you for choosing us for your care. [facility] Office/Clinic Noteon 90-09-4070Secuhcw Office/Clinic NoteUrology Office/Clinic Note Chief Complaint Follow up with T level HPI Staff 68yr old male pt here to discuss TRT changes. Last inj 06/27/24. Previous Dx: hypogonadism, BPH with obstruction, impotence *Testosterone IM 300mg q4wks, tamsulosin 0.4mg bid, sildenafil 100mg prn T Level: 10/28/22 - 06/19/23 - 329 & 7.9 free 12/17/23 - 05/05/24 - 529 07/11/24 - IPSS: 27, HARSHA: 15 Denies dysuria, denies [...] range 264-916): 04/26/22 - 229 10/28/22 - 06/19/23 - 329 & 7.9 free 12/17/23 - 239 04/18/24 - HGB 12.5 L 07/11/24 - Stopped Androgel 12/2023. Has been receiving Testosterone IM 300 mg q4ks. Last injection given 06/27/24. Current T level has decreased from prior. Advised pt dosage will need adjusted to maintain level wnl. Risks/benefits discussed. -Increase Testosterone IM to 400 mg q4ks. Next injection to be given 03/10/25. -F/u in 4 mos w/ testosterone and prolactin 2. BPH with urinary obstruction (N40.1: Benign prostatic hyperplasia with lower urinary tract symptoms) PSA: 12/11/20 - 0.69 04/26/22 - 0.43 12/28/23 - 0.50 S/p Evolve of prostate 2009. [1] IPSS 27. UA today negative for blood and infection. Taking Tamsulosin 0.4 mg bid. Reports stream isweak. Feels urinary habits have become more bothersome. Discussed starting Dutasteride. Possibles SEs and mechanism of action discussed. Pt wishes to try this. Also shares interest in Rezum. Educatedpt on details of procedure and risks/benefits. -Cont [...] Urology [address], [place] [phone] Additional Instructions: 4 mos w/ testosterone and prolactin levels Patient Education Hypogonadism, Male I, Val Alston, personally scribed for Dr. Breen on 07/18/2024 16:10:00. . Documentation recorded by the scribe, Val lAston, accurately reflects the services(s) I performed and [...] mg= 1 tab(s) Caio (more content not included)...[facility]-FairhillComment on above:Result Comment: Electronically Signed By: Shady BREEN MD\.br\Date and Time Signed: 07/18/24 16:11 EST\.br\Electronically Co-Signed By: Val Alston\.br\Date and Time Co-Signed: 07/18/24 16:10 ESTAmbulatory Visit Summaryon 38-03-3176Faigrweixy Visit SummaryAmbulatory Visit Summary MISHELMIKE :1955 Visit Date:05/30/2024 Ambulatory Visit Instructions Your [...] AM EST With: Where: [facility] [address] [facility] [place] [address]- Thursday 8:15 AM EDT With: JAMSHID VILLAVICENCIO, Shady Rizo Where: [facility] [address] [place] [address]- Medications What How Much When Instructions Unchanged [...] mg/ mL IM Mavis) 300 Milligram Intramuscular Every4 weeks Unchanged verapamil (verapamil 240 mg ER [...] you for choosing us for your care. [facility]-FairhillGlucose Glucometer (BldC) [Mass/Vol]Ordered By: Shanique Chiang on 26-42-6514Yfaovka [Mass/Vol]Capillary blood glucose measurement by glucometer (mass/volume)[facility] Comment on above:Random Glucose Reference Range is dependent on time and content of last meal. Glucose of more than 200 mg/dL in a nonstressed, ambulatory subject supports the diagnosis of Diabetes Mellitus.Glucose Poct Glucometerson 34-94-6886Glcihxf1Bbm0: Cleaned MeterAdventHealth TimberRidge ER Physician GroupComment on above:Result Comment: PERFORMED BY: [address] [place] [address] PATHOLOGIST FLIGHT COORDINATOR VENECIA SANTO M.D.Performed By: #### GLULS #### Point of Care testing ,Glucose [Mass/Vol]134 mg/dLAdventHealth TimberRidge ER Physician GroupComment on above: Result Comment: Random Glucose Reference Range is dependent on time and content of last meal. Glucose of more than 200 mg/dL in a nonstressed, ambulatory subject supports the diagnosis of Diabetes Mellitus.Performed By: #### GLULS #### Point of Care testing ,No Panel InformationOrdered By: Shanique Chiang on 29-95-4155Xcficaqhitbhh Pathology TestSee commentWooster Community HospitalComment on above:See report. Scanned copy available in EMR.Bedside Glucose CommentGlu2: cleaned meter [facility] HospitalPathology Request for Lab Corpon 05-04-2024 Pathology Request for Lab CorpNoFormerly [facility] Physician GroupComment on above:Order Comment: PATHOLOGY GI SPECIMENResult Comment: See report. Scanned copy available in EMR. PERFORMED BY: [facility] [address] [id number] PATHOLOGIST FLIGHT COORDINATOR VENECIA SANTO M.D.Performed By: #### PATH TO [facility] #### [facility] [address] [id number] USALipid profileon 28-48-6393Asmedidu Lewojvixczm133AjhPfysdd Health SystemExternal Hdl Fckexsnorbr72XlqSptwvo Health SystemExternal Ldl (Calc)61ProAdena Regional Medical CenterExternal Aqgwpnzadqipb07AgkPszxun Health System ProMOhioHealth O'Bleness HospitalMICROALBUMIN - ALBUMIN:CREATININE URINE RATIOon 81-06-4398HDE/CREAT RATIONOT CALCULATEDNormal0.0-30.0[facility] Comment on above:Result Comment: Result for Albumin/Creatinine Ratio cannot be reliably calculated because urine albumin and or urine creatinine is below the detection limit of the assay.Performed By: #### AASHISH #### [facility] ([id number]) [address] [place] [address], [address] [place], [place] [address]Gykwujw DL <= 20 mg/L (U) [Mass/Vol]mg/dLNormal0.0-1.9ProSelect Medical Specialty Hospital - ColumbusComment on above:Performed By: #### AASHISH #### [facility] ([id number]) [address] [place] [address], [address] [place], [place] [address]GPZWS CREAT24.53 mg/dLNormalProSelect Medical Specialty Hospital - ColumbusComment on above:Performed By: #### AASHISH #### [facility] ([id number]) [address] [place] [address], [address] [place], [place] [address]Yepwzhd Office/Clinic Noteon 81-59-1481Fxgrrxe Office/Clinic NoteUrology Office/Clinic Note Chief Complaint f/u testosterone level HPI Staff 68yr old male pt here for 4mo f/u testosterone level check. Labs drawn at [facility] [place] [facility] last week. Wants to discuss Flomax medication, and possibly switching due to side effects. Previous Dx: hypogonadism male, BPH with urinary obstruction, impotence *testosterone injection 300mg q4wks, tamsulosin 0.4mg bid, sildenafil 100mg PRN T Level: 10/28/22 - 06/19/23 - & 7.9 free 12/17/23 - Dysuria: denies [...] states he is unable to ejaculate anymore, wondersif this is a side effect History of [...] 12/17/23 - 239 04/04/24 - last inj 12/02/24 - HGB 12.5 L Stopped Androgel and started Testosterone IM 300 mg q4ks at prior OV. Waking occasionally with morning erections. Had labs drawn last wk at [facility], did not run. Cannot adjust dose since no recent level.Pt is due for his injection today. Will have pt receive inj today at same dosage and then get T level in the AM tomorrow. Follow up 6 mos with T level or sooner if needed. Pt understands and agrees with plan. -Receive injection today. -Get T level drawn tomorrow at [facility] (recalled). May adjust dose over the phone [...] Rizo, URL [facility] [address], [place] [address]- Additional Instructions: 6 mos with T level [...] 1 tab(s) Januvia 100 (more content not included)...[facility] Comment on above:Result Comment: Electronically Signed By: Shady BREEN MD\.br\Date and Time Signed: 05/02/24 15:19 EST\.br\Electronically Co-Signed By: Kaia Valdez\.br\Date and Time Co-Signed: 05/02/24 15:16 EST\.br\Electronically Co-Signed By: Kaia Valdez\.br\Date and Time Co- Signed: 05/02/24 15:16 ESTAmbulatory Visit Summaryon 00-95-3707Skgscqtcti Visit SummaryAmbulatory Visit Summary MISHELMIKE :1955 Visit Date:04/04/2024 Ambulatory Visit Instructions Your [...] VILLAVICENCIO, Shady Rizo Where: [facility] [place] [id number]- Medications What How Much When Instructions Unchanged [...] mg/ mL IM Mavis) 300 Milligram Intramuscular Every4 weeks Medications and Immunizations Administered Given Depo-Testosterone [...] you for choosing us for your care. [facility]-FairhillAmbulatory Visit Summaryon 05-43-8161Adrjxfwcrj Visit SummaryAmbulatory Visit Summary MIKE MUÑIZ :1955 Visit Date:01/12/2024 [...] AM EDT With: Where: [facility] [address] [address]- Thursday 8:45 AM EST With: Shady BREEN MD Where: [facility] [address] [address]- Medications What How Much When Instructions Unchanged [...] mg/ mL IM Mavis) 300 Milligram Intramuscular Every4 weeks Medications and Immunizations Administered Given Depo-Testosterone [...] you for choosing us for your care. [facility]-FairhillAmbulatory Visit Summaryon 35-63-0277Rpklmhnzsy Visit SummaryAmbulatory Visit Summary MIKE MUÑIZ :1955 Visit Date:12/28/2023 [...] AM EDT With: Where: [facility] [address] [address]- Thursday 8:45 AM EST With: Shady BREEN MD Where: [facility] [address] [address]- You Need to Schedule the Following Appointments Follow Up with Shady BREEN MD, URL When: Where: [facility] [address] [place] [address], [place] [address]- Medications What How Much When Instructions Changed sildenafil (sildenafil 100 mg Tab) 1 Tablets By Mouth As Directed as needed for Other (see comment) Take 1 hour prior to sexual activity. Do not exceed more than 100 mg (1 tab) within 24 hours. Pickup at [facility] Changed testosterone (testosterone cypionate 200 mg/ mL IM Mavis) 300 Milligram Intramuscular Every 4weeks Pickup at [facility] Unchanged clopidogrel (clopidogrel 75 mg Tab) [...] Capsules By Mouth Every day Contact prescribing physicianif questions or concerns Unchanged rosuvastatin (Crestor 10 [...] physician if questions or concerns Pharmacy Information [facility]: [address], [place] [id number] [phone] What How Much When Comments Stop Taking [...] the development of male characteristics duri (more contentnot included)...NormalFisher Mt. Washington Pediatric HospitalUrology Office/Clinic Noteon 00-97-8776Zsqooqa Office/Clinic NoteUrology Office/Clinic Note Chief Complaint BPH with urinary obstruction HPI Staff 1 yr w/ testosterone level. Dx: BPH with obstruction, hypogonadism, impotence, glucosuria. S/p Evolve of prostate 2009. *Tamsulosin 0.4mg bid, Sildenafil 100mg prn, and Androgel 4 pumps daily Previous T level 06/19/23 - & 7.9 free Current T level 12/17/23 Dysuria: no Incomplete bladder emptying: no Hematuria: [...] - 229 10/28/22 - 377 06/19/23 - & 7.9 free 12/17/23 - Using Androgel 4 pumps daily. Most recent T level low for absolute and age- adjusted ranges but prior level was good. Discussed [...] knows to get T level drawn exactly jail in-between injections before 10 am. 2. BPH [...] [facility] [address], [place] [address]- Additional Instructions: 4 mos with T level. schedule nursing visits q4wks for t injections. Patient Education Hypogonadism, Male I, Kaia Valdez, personally scribed for Dr. Breen on 12/28/2023 [...] cap(s), Oral, Daily Caio (more content not included)...[facility]-FairhillComment on above:Result Comment: Electronically Signed By: Shady BREEN MD\.br\Date and Time Signed: 12/28/23 13:12 EDT\.br\Electronically Co-Signed By: Kaia Valdez\.br\Date and Time Co-Signed: 12/28/23 13:08 EDTPre-Certification Formon 11-41-4001Ddu-Certification Form [id number]#1.00TIFSt. Anthony's HospitalPre-Certification Formon 25-53-3847Bht-Certification Form [id number]#1.00TIFFSelect Medical Specialty Hospital - Cleveland-FairhillLab Reportson 79-77-9846Xli Reports [id number]#1.00TIFSt. Anthony's HospitalLab Reportson 10-94-6560Rwd Reports [id number]#1.00TIFSt. Anthony's HospitalPre-Certification Formon 84-08-3442Eot-Certification Form [id number]#1.00TIFFNoObdulio Mt. Washington Pediatric HospitalVAS LAB Abdominal Aorta/Iliac/IVC Ultraon 80-53-8825AFUX LAB Abdominal Aorta/Iliac/IVC UltraNortUNC Health Johnston Clayton [address] [place] [address], [address], [place] [address] Vascular Lab Report Abdominal Aorta Iliac Ultrasound/IVC Ultrasound Patient Name: MIKE Emery MUÑIZ Reading Physician: [id number] Jade Sims MD, FAC Study Date: 01/05/2023 Referring JADE SIMS Physician: MRN/PID: [id number] PCP: Josh Maciel MD Accession/Order#: [id number] CC Report to: Date of : 1955 Technologist: Deidre Jimenez RDCS, T Gender: M Technologist 2: Admission Status: Outpatient Location Performed: [facility] Diagnosis/ICD: Y52-Jvfgmodbn primary hypertension; R09.89-Bruit; I73.9-Peripheral vascular disease, unspecified Indication: ASCVD, Former Smoker, SFA [employer] HAND-2008, Hyperlipidemia, Diabetes, [place], Overweight, PTCA-2004 and 2016 Procedure/CPT: 35727 Ultrasound, abdominal aorta, real time with image documentation, screening study for (AAA)-84972 CONCLUSIONS: Aorta/Common Iliac Arteries/IVC: No evidence of abdominal aortic aneurysm. Imaging AND Doppler Findings: AORTA AP Lateral PSV Proximal 1.49 cm 1.36 cm 101.0 cm/s Mid 1.55 cm 1.43 cm 97.0 cm/s Distal 1.57 cm 1.51 cm 72.0 cm/s RIGHT AP Lateral PSV FRANCISCO Proximal 1.08 cm 0.81 cm 147.00 cm/s LEFT AP Lateral PSV FRANCISCO Proximal 0.83 cm 0.96 cm 94.00 cm/s 17393 Jade Sims MD, FACC Final NormalParkview Medical CenterTESTOSTERONE, TOTALon 04-27-2022 Testosterone [Mass/Vol]229 ng/dLCritically nut138-771Wqk [place] [facility] Comment on above:Result Comment: Adult male reference interval is based on a population of healthy nonobese males (BMI <30) between 19 and 39 years old. Leticia et.al. JCEM 2017,102;8924-1226. PMID: [id number].Performed By: #### TESTTOT ####[facility] [place] [facility] [address] [place], [place] [address]Cd. Juan Alberto Suazo Visit (Cardiology)on 95-93-2579Skjusg-up visit Diagnoses/Problems Assessed ASCVD (arteriosclerotic cardiovascular disease) [...] Weight Tips; Status:Complete - Retrospective Authorization; Done: 21Sxf9074 Some eating tips that can help you lose weight.; Status:Complete - Retrospective Authorization; Done: [id number] SocHx: Former smoker Tobacco Use Screening; Status:Complete; Done: 10Beu0147 Patient Instructions Please bring all medicines, vitamins, [...] were reviewed with him and all his numbersfall in the normal range. His diabetes is well controlled, LDL is under excellent control. Patient has no symptoms of claudication. He reports no side effect of medications. He will be retiring soon.His weight is above target and is working on it. Examination was essentially normal. ASSESSMENT AND PLAN: 1. PCI of the RCA in 2004 and 2016. He is presently asymptomatic on dual antiplatelet therapy. No cardiac testing and no change in medication is needed 2. Sleep apnea, on CPAP machine. 3. History of peripheral artery disease, asymptomatic with previous [employer] the right SFA 2008, currently has no [...] December 2021 was 6.0 Jade Sims MD, [facility] Surgical History Problems History of Angioplasty History [...] negative for complaint. Vitals Vital Signs Recorded: 65Qhs4040 08:27AM Heart Rate74, R Radial Orddthqj679, LUE, Sitting Qgfixtrqw46, LUE, Sitting Height6 ft 2 in Ckhzlo510 lb 2 oz BMI Yipydcdvyt20.03 kg/m2 BSA Calculated2.29 Tobacco Useb) No PHQ-2 #1. Over the last 2 weeks have you felt down, depressed or hopeless? (If yes, answer PHQ-9 below)No PHQ-2 #2. Over the last 2 weeks have you felt littl (more content not included)...NormalUH TouchworksGLYCOHEMOGLOBIN A1Con 24-93-9546UFF RECOMMENDATIONSEE BELOWSelect Medical Specialty Hospital - AkronCommunson healthcare [facility] on above:Result Comment: ADA RECOMMENDED LIMIT 4.0 - 6.0 ADA THERAPEUTIC TARGET < 7.0 ACTION SUGGESTED > 7.0Performed By: #### A1C #### [facility] [place] [facility] [address] [address] [address] Juan Albetro CarranzaGlucose [Mass/Vol]126 mg/dLNoMercy Health Defiance Hospital on above:Performed By: #### A1C #### [facility] [place] [facility] [address] [address] [address] Juan Alberto CarranzaHbA1c (Bld) [Mass fraction]6.0 %Normal4.5-6.2[facility] on above:Performed By: #### A1C #### [facility] [address] [address] [address] Juan Alberto CarranzaLIPID PROFILEon 02-24-6372JZOS-HDL RATIO NORMSEE [facility] on above:Result Comment: 3.3 - 4.4 LOW RISK 4.4 - 7.1 AVERAGE RISK 7.1 - 11.0 MODERATE RISK >11.0 HIGH RISKPerformed By: #### LIPID, CMP #### [facility] [address] [place] [address] Dr. Juan Alberto CarranzaCholesterol [Mass/Vol]136 mg/dLNormal<=200[facility] Comment on above:Performed By: #### LIPID, CMP #### [facility] [address] [address] [address] Juan Alberto CarranzaCholesterol in HDL [Mass/Vol]62 mg/dLCritically rpjo63-51FlaSelect Medical Specialty Hospital - AkronComment on above:Performed By: #### LIPID, CMP #### [facility] [address] [place] [address] Dr. Juan Alberto CarranzaCholesterol in LDL [Mass/Vol]57.6 mg/dLSelect Medical Specialty Hospital - AkronComment on above:Performed By: #### LIPID, CMP #### [facility] [address] [place] [address] Dr. Juan Alberto Franksesterchidi.total/Cholesterol in HDL [Mass ratio]2.2 {ratio} NormalSelect Medical Specialty Hospital - AkronComment on above:Performed By: #### LIPID, CMP #### [facility] [address] [place] [address] Dr. Juan Alberto CarranzaHDL NORMAL> or = 60 mg/dl - LOW CARDIOVASCULAR RISK <40 mg/dl - HIGH CARDIOVASCULAR RISKSelect Medical Specialty Hospital - AkronComment on above:Performed By: #### LIPID, CMP #### [facility] [place] [address] [place] [address] Dr. Juan Alberto CarranzaLDL CALC NORMALSEE BELOWSelect Medical Specialty Hospital - AkronComment on above:Result Comment: <100 mg/dl OPTIMAL 100 - 129 mg/dl NEAR OR ABOVE OPTIMAL 130 - 159 mg/dl BORDERLINE HIGH 160 - 189 mg/dl HIGH >190 mg/dl VERY HIGH Performed By: #### LIPID, CMP #### [facility] [address] [place] [address] Dr. Juan Alberto CarranzaTriglyceride [Mass/Vol]82 mg/dLNormal<=150The [facility] [place] Comment on above:Performed By: #### LIPID, CMP #### [facility] [address] [place] [address] Dr. Juan Alberto CarranzaVLDL CALC16.4 mg/dLNormalThe [facility] [place] HospitalComment on above: Performed By: #### LIPID, CMP #### [facility] [address] [place] [address] Dr. Juan Alberto CarranzaPROF 14(COMP METB)on 20-33-3451Yahsdep [Mass/Vol]4.0 g/dLNormal 3.4-5.0The [facility] [place] HospitalComment on above:Performed By: #### LIPID, CMP #### [facility] [address] [place] [address] Dr. Juan Alberto CarranzaAlbumin/Globulin [Mass ratio]1.3 {ratio}NormalThe [facility] [place] HospitalComment on above:Performed By: #### LIPID, CMP #### [facility] [address] [place] [address] Dr. Juan Alberto Lay [Catalytic activity/Vol]48 U/IJldgla07-222Ejy [facility] [place] HospitalComment on above:Performed By: #### LIPID, CMP #### [facility] [address] [place] [address] Dr. Juan Alberto Tabares [Catalytic activity/Vol]28 U/CBsbeze31-82Qii [facility] [place] HospitalComment on above:Performed By: #### LIPID, CMP #### [facility] [address] [place] [address] Dr. Juan Alberto Rodriguez gap [Moles/Vol]13.2 mmol/LNormalThe [facility] Comment on above:Performed By: #### LIPID, CMP #### [facility] [address] [place] [address] Dr. Juan Alberto Yen [Catalytic activity/Vol]13 U/LCritically wyi19-90Hbo [facility] [place] HospitalComment on above:Performed By: #### LIPID, CMP #### [facility] [address] [place] [address] Dr. Yilan ChangBilirubin [Mass/Vol]0.6 mg/dLNormal0.2-1.0The [facility] Comment on above:Performed By: #### LIPID, CMP #### [facility] [address] [place] [address] Dr. Juan Alberto CarranzaCalcium [Mass/Vol]8.8 mg/dLNormal8.5-10.1The [facility] Comment on above:Performed By: #### LIPID, CMP #### [facility] [address] [address] [address] Juan Alberto CarranzaChloride [Moles/Vol]100 mmol/FVojkkc24-340Vbz [facility] Comment on above:Performed By: #### LIPID, CMP #### [facility] [address] [place] [address] Dr. Juan Alberto CarranzaCO2 [Moles/Vol]29.1 mmol/HPfysco52.0-32.0[facility] Comment on above:Performed By: #### LIPID, CMP #### [facility] [address] [place] [address] Dr. Juan Alberto CarranzaCreatinine [Mass/Vol]0.89 mg/dLNormal0.70-1.30The [facility] [place] HospitalComment on above:Performed By: #### LIPID, CMP #### [facility] [address] [place] [address] Dr. Juan Alberto RodriguezGFR-AF NICARAGUAN>60Normal>=60The [facility] [place] HospitalComment on above:Performed By: #### LIPID, CMP #### [facility] [address] [place] [address] Dr. Juan Alberto RodriguezGFR-NON AF NICARAGUAN>60Normal>=60The [facility] [place] HospitalComment on above:Performed By: #### LIPID, CMP #### [facility] [address] [place] [address] Dr. Juan Alberto CarranzaGlobulin (S) [Mass/Vol]3.0 g/dLNormalThe [facility] [place] HospitalComment on above:Performed By: #### LIPID, CMP #### [facility] [address] [place] [address] Dr. Juan Alberto CarranzaGlucose [Mass/Vol]134 mg/dLCritically nify72-903Aed [facility] [place] HospitalComment on above:Performed By: #### LIPID, CMP #### [facility] [address] [address] [address] Juan Alberto CarranzaPotassium [Moles/Vol]4.3 mmol/LNormal3.5-5.1The [facility] Comment on above:Performed By: #### LIPID, CMP #### [facility] [address] [address] [address] Juan Alberto CarranzaProtein [Mass/Vol]7.0 g/dLNormal6.4-8.2The [facility] Comment on above:Performed By: #### LIPID, CMP #### [facility] [address] [place] [address] Dr. Juan Alberto CarranzaSodium [Moles/Vol]138 mmol/RAozrcp228-157Psi [facility] Comment on above:Performed By: #### LIPID, CMP #### [facility] [address] [place] [address] Dr. Juan Alberto CarranzaUrea nitrogen [Mass/Vol]17.0 mg/dLNormal7.0-18.0The [facility] [place] HospitalComment on above:Performed By: #### LIPID, CMP #### [facility] [address] [place] [address] Dr. Juan Alberto Wilder nitrogen/Creatinine [Mass ratio]19.1 mg/mgNormalThe [facility] [place] HospitalComment on above:Performed By: #### LIPID, CMP #### [facility] [address] [place] [address] Dr. Juan Alberto CarranzaTESTOSTERONE, TOTALon 77-09-8978Gazurhunfdrg [Mass/Vol]321 ng/dL Dvzvys062-958Wti [facility] [place] HospitalComment on above:Result Comment: Adult male reference interval is based on a population of healthy nonobese males (BMI <30) between 19 and 39 years old. beverly Kelly.al. JCEM 2017,102;6529-6266. PMID: [id number].Performed By: #### TESTTOT #### [facility] [address] [address] [address] Juan Alberto CarranzaTESTOSTERONE, TOTALon 01-52-3620Nzfmlelrdubq [Mass/Vol]360 ng/dL Dxvshn854-297Knu [facility] [place] HospitalComment on above:Result Comment: Adult male reference interval is based on a population of healthy nonobese males (BMI <30) between 19 and 39 years old. beverly Kelly.al. JCEM 2017,102;7897-4802. PMID: [id number].Performed By: #### TESTTOT ####[facility] [address] [address]. Juan Alberto ShookC AUTO DIFFon 57-74-4242WEPC #0.0 103/ulNormal0.0-0.1The [facility] [place] HospitalComment on above:Performed By: #### CBC #### [facility] [address] [place] [address] Dr. Juan Alberto CarranzaBasophils/100 WBC (Bld)0.5 %Normal0.2-2.0[facility] Comment on above:Performed By: #### CBC #### [facility] [address] [place] [address] Dr. Juan Alberto Clemens #0.1 103/ulNormal0.0-0.7The [facility] [place] HospitalComment on above: Performed By: #### CBC #### [facility] [address] [place] [address] Dr. Juan Alberto Rodriguezosinophils/100 WBC (Bld)1.8 %Normal0.9-7.0The [facility] Comment on above:Performed By: #### CBC #### [facility] [address] [place] [address] Dr. Juan Alberto Rodriguezrythrocyte distribution width (RBC) [Ratio]13.5 %Xyvild51.0-15.0 [facility] HospitalComment on above:Performed By: #### CBC #### [facility] [address] [place] [address] Dr. Juan Alberto CarranzaHematocrit (Bld) [Volume fraction]40.4 %Critically low42.0-54.0 The [facility] HospitalComment on above:Performed By: #### CBC #### [facility] [address] [address] [address] Juan Alberto CarranzaHemoglobin (Bld) [Mass/Vol]13.9 g/dLCritically low14.0-18.0The [facility] HospitalComment on above:Performed By: #### CBC #### [facility] [address] [address] [address] Juan Alberto Penaloza #0.01 10e3/ulNormal0.00-0.03The [facility] HospitalComment on above:Performed By: #### CBC #### [facility] [address] [place] [address] Dr. Juan Alberto Penaloza %0.2 %Normal0.0-0.5The [facility] HospitalComment on above: Performed By: #### CBC #### [facility] [address] [place] [address] Dr. Juan Alberto Garcia #0.9 103/ulCritically low1.2-3.8The [facility] Comment on above:Performed By: #### CBC #### [facility] [address] [place] [address] Dr. Juan Alberto Thompsonhocytes/100 WBC (Bld)20.5 %Dkmdvf19.5-60.0The [facility] on above:Performed By: #### CBC #### [facility] [address] [place] [address] Dr. Juan Alberto GarciaUAL DIFF REQNONormalThe [facility] HospitalComment on above: Performed By: #### CBC #### [facility] [address] [place] [address] Dr. Juan Alberto Cho (RBC) [Entitic mass]32.3 geQdffng18.9-34.0The [facility] HospitalComment on above:Performed By: #### CBC #### [facility] [address] [place] [address] Dr. Juan Alberto Cho (RBC) [Mass/Vol]34.4 g/zLRtkvcr34.9-35.2The [facility] HospitalComment on above:Performed By: #### CBC #### [facility] [address] [place] [address] Dr. Juan Alberto ChoV (RBC) [Entitic vol]93.7 oIFdfwqy10.0-94.0The [facility] HospitalComment on above:Performed By: #### CBC #### [facility] [address] [place] [address] Dr. Juan Alberto Collins #0.3 103/ulNormal0.3-0.8The [facility] HospitalComment on above:Performed By: #### CBC #### [facility] [address] [place] [address] Dr. Juan Alberto Henryocytes/100 WBC (Bld)7.0 %Normal1.7-12.0The [facility] Comment on above:Performed By: #### CBC #### [facility] [address] [place] [address] Dr. Juan Alberto Cortes #3.1 103/ulNormal1.4-6.5The [facility] HospitalComment on above:Performed By: #### CBC #### [facility] [address] [place] [address] Dr. Juan Alberto Cevallosutrophils/100 WBC (Bld)70.0 %Ejzoqw10.0-75.0The [facility] HospitalComment on above:Performed By: #### CBC #### [facility] [address] [place] [address] Dr. Juan Alberto Duartelet mean volume (Bld) [Entitic vol]11.3 fLNormal9.5-13.5The [facility] HospitalComment on above:Performed By: #### CBC #### [facility] [address] [place] [address] Dr. Juan Alberto CarranzaPLT141 103/ulCritically rto940-940Sxi [facility] HospitalComment on above:Performed By: #### CBC #### [facility] [address] [place] [address] Dr. Juan Alberto CarranzaRBC4.31 106/ulCritically low4.70-6.10The [facility] HospitalComment on above:Performed By: #### CBC #### [facility] [address] [address] [address] Juan Alberto CarranzaWBC4.4 103/ulNormal4.0-11.0The [facility] HospitalComment on above: Performed By: #### CBC #### [facility] [address] [address] [address] Juan Alberto MacdonaldID PROFILEon 86-59-1276BGUK-HDL RATIO NORMSEE [facility] WestComment on above:Result Comment: 3.3 - 4.4 LOW RISK 4.4 - 7.1 AVERAGE RISK 7.1 - 11.0 MODERATE RISK >11.0 HIGH RISKPerformed By: #### LIPID #### [facility] [address] [place] [address] Dr. Juan Alberto Franksesterol [Mass/Vol]139 mg/dLNormal<=200[facility] Comment on above:Performed By: #### LIPID #### [facility] [address] [place] [address] Dr. Juan Alberto Franksesterol in HDL [Mass/Vol]72 mg/dLSelect [facility] [place] Comment on above:Performed By: #### LIPID #### [facility] [address] [place] [address] Dr. Juan Alberto Franksesterol in LDL [Mass/Vol]62.4 mg/dLSelect Medical Specialty Hospital - AkronComment on above:Performed By: #### LIPID #### [facility] [address] [place] [address] Dr. Juan Alberto Zendejas.total/Cholesterol in HDL [Mass ratio]1.9 {ratio} NormalSelect Medical Specialty Hospital - AkronComment on above:Performed By: #### LIPID #### [facility] [address] [place] [address] Dr. Juan Alberto Mendoza NORMAL> or = 60 mg/dl - LOW CARDIOVASCULAR RISK <40 mg/dl - HIGH CARDIOVASCULAR RISKSelect Medical Specialty Hospital - AkronComment on above:Performed By: #### LIPID #### [facility] [address] [place] [address] Dr. Juan Alberto CarranzaLDL CALC NORMALSEE BELOWSelect Medical Specialty Hospital - AkronComment on above:Result Comment: <100 mg/dl OPTIMAL 100 - 129 mg/dl NEAR OR ABOVE OPTIMAL 130 - 159 mg/dl BORDERLINE HIGH 160 - 189 mg/dl HIGH >190 mg/dl VERY HIGH Performed By: #### LIPID #### [facility] [address] [place] [address] Dr. Juan Alberto CarranzaTriglyceride [Mass/Vol]23 mg/dLNormal<=150The [facility] Comment on above:Performed By: #### LIPID #### [facility] [address] [place] [address] Dr. Juan Alberto CarranzaVLDL CALC4.6 mg/dLNoUC HealthComment on above: Performed By: #### LIPID #### [facility] [address] [place] [address] Dr. Juan Alberto CarranzaPROF 14(COMP METB)on 90-86-2670Mggzdbd [Mass/Vol]4.0 g/dLNormal 3.5-5.0[facility] - AkronComment on above:Performed By: #### CMP #### [facility] [address] [place] [address] Dr. Juan Alberto CarranzaAlbumin/Globulin [Mass ratio]1.3 {ratio}NormalThe [facility] HospitalComment on above:Performed By: #### CMP #### [facility] [address] [place] [address] Dr. Juan Alberto Lay [Catalytic activity/Vol]60 U/JSlsima43-211Sov [facility] HospitalComment on above:Performed By: #### CMP #### [facility] [address] [place] [address] Dr. Juan Alberto Tabares [Catalytic activity/Vol]22 U/IKkawha01-60Hwv [facility] HospitalComment on above:Performed By: #### CMP #### [facility] [address] [place] [address] Dr. Juan Alberto Rodriguez gap [Moles/Vol]9.4 mmol/LNormalThe [facility] HospitalComment on above:Performed By: #### CMP #### [facility] [address] [address] [address] Juan Alberto CarranzaAST [Catalytic activity/Vol]12 U/LCritically oib09-86Rwa [facility] HospitalComment on above:Performed By: #### CMP #### [facility] [address] [address] [address] Juan Alberto CarranzaBilirubin [Mass/Vol]0.6 mg/dLNormal0.2-1.3TMary [facility] Comment on above:Performed By: #### CMP #### [facility] [address] [address] [address] Juan Alberto CarranzaCalcium [Mass/Vol]8.9 mg/dLNormal8.4-10.2[facility] Comment on above:Performed By: #### CMP #### [facility] [address] [address] [address] Juan Alberto CarranzaChloride [Moles/Vol]103 mmol/WAgiiqo54-136Zzc [facility] Comment on above:Performed By: #### CMP #### [facility] [address] [address] [address] Juan Alberto CarranzaCO2 [Moles/Vol]28.8 mmol/KOmlwhc59.0-30.0[facility] Comment on above:Performed By: #### CMP #### [facility] [address] [address] [address] Juan Alberto CarranzaCreatinine [Mass/Vol]0.83 mg/dLNormal0.66-1.25The [facility] HospitalComment on above:Performed By: #### CMP #### [facility] [address] [address] [address] Juan Alberto RodriguezGFR-AF NICARAGUAN>60Normal>=60The [facility] HospitalComment on above:Performed By: #### CMP #### [facility] [address] [address] [address] Juan Alberto RodriguezGFR-NON AF NICARAGUAN>60Normal>=60The [facility] HospitalComment on above:Performed By: #### CMP #### [facility] [address] [address] [address] Juan Alberto CarranzaGlobulin (S) [Mass/Vol]3.2 g/dLNormalThe [facility] HospitalComment on above:Performed By: #### CMP #### [facility] [address] [address] [address] Juan Alberto CarranzaGlucose [Mass/Vol]135 mg/dLCritically orjb85-166Hul [facility] HospitalComment on above:Performed By: #### CMP #### [facility] [address] [address] [address] Juan Alberto CarranzaPotassium [Moles/Vol]5.2 mmol/LCritically high3.4-5.0The [facility] Hospitalment on above:Performed By: #### CMP #### [facility] [address] [address] [address] Juan Alberto CarranzaProtein [Mass/Vol]7.2 g/dLNormal6.1-8.2The [facility] Comment on above:Performed By: #### CMP #### [facility] [address] [address] [address] Juan Alberto CarranzaSodium [Moles/Vol]136 mmol/LCritically cbz009-747Pgx [facility] Hospitalment on above:Performed By: #### CMP #### [facility] [address] [address] [address] Juan Alberto CarranzaUrea nitrogen [Mass/Vol]17.0 mg/dLNormal9.0-20.0The [facility] Hospitalment on above:Performed By: #### CMP #### [facility] [address] [address] [address] Juan Alberto CarranzaUrea nitrogen/Creatinine [Mass ratio]20.5 mg/mgNormalThe [facility] HospitalComment on above:Performed By: #### CMP #### [facility] [address] [address] [address] Juan Alberto Estes RATE WESTERGRENon 37-04-4918WZV RATE2 mm/hrNormal<=20The [facility] HospitalComment on above:Performed By: #### SEDR #### [facility] [address] [place], [place] [address] Dr. Juan Alberto Suazo Visit (Cardiology)on 47-74-4391Qznxcl-up visit Diagnoses/Problems Assessed ASCVD (arteriosclerotic cardiovascular disease) [...] Weight Tips; Status:Complete - Retrospective Authorization; Done: [id number] SocHx: Former smoker Tobacco Use Screening; Status:Complete; Done: [id number] Patient Instructions By signing my name below, 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 with previous [employer] the right SFA 2008 4. Hyperlipidemia, on statin therapy, under control. Lipid profile was requested from PCP 5. Overweight. Weight has dropped 15 pounds from last year which is encouraging 6. Hypertension, presently under control. 7. Diabetes, under control., Lab data from PCP were requested Jade Sims MD, [facility] Current Meds Medication NameInstruction Aspirin 81 MG [...] negative for complaint. Vitals Vital Signs Recorded: 48Tuv1523 03:40PM Heart Rate80, R Radial Wypahsrt723, RUE, Sitting Whampciop24, RUE, Sitting Height6 ft 2 in Upgkno355 lb 9.6 oz BMI Lylgizrzvh82.61 kg/m2 BSA Calculated2.31 Tobacco Useb) No Fall [...] MD; Apr 23 2021 4:16PM EST (Author) NormalUH TouchworksMRI SHOULDER RIGHT WO CONTRASTon 12-59-4082LQK SHOULDER RIGHT WO CONTRASTCLINICAL HISTORY: Right shoulder pain. Impingement syndrome of right shoulder (M75.41). Evaluate for rotator cuff tear.MRI RIGHT SHOULDER WITHOUT CONTRAST:TECHNIQUE: Sagittal PD, T2, coronal T1, PD, T2 fat-saturated, and axial images were obtained through the right shoulder.FINDINGS: Moderately severe AC joint osteoarthrosis is present, with small subchondral cysts and marginal osteophytes, whichnarrow the supraspinatus outlet. There is a type [...] or edema.There is a partial-thickness tear and severetendinopathy in the long head of the biceps tendon, in the intra-articular portion and the superiorbicipital groove.Degenerative tear is noted in the superior labrum, extending from anterior to posterior to the biceps anchor.Mild glenohumeral joint osteoarthrosis is suspected, with mild osseous ridging inferiorly. A small glenohumeral joint effusion is present.IMPRESSION: 1. A 1.4 cm x 1.2 cm high- grade partial-thickness bursal surface rotator cuff tear of the distal supraspinatus tendon, involving at least two-thirds of the tendon thickness, with surrounding severe supraspinatus tendinopathy, and moderate distal infraspinatus tendinopathy.2. A 1.2 cm x 0.7 cm low-grade partial-thickness in trasubstance and possibly articular surface tear of the distal-most subscapularis tendon, with surrounding moderate tendinopathy.3. Partial- thickness tear and severe tendinopathy in the long head of the biceps tendon, in the intra-articular portion and the superior bicipital groove.4. Degenerative t ear in the superior labrum, extending from anterior to posterior to the biceps anchor.5. Mild glenohumeral joint osteoarthrosis is suspected.6. Moderately severe AC joint osteoarthrosis, and mild subacromial/subdeltoid bursitis.Interpreted by:VENICE Maeigned by:Jair Olivia MD07/06/17inal resultNoKettering Health [facility] Memorial Vital Signs Date TimeVital SignValuePerforming IfokxokdkJdfinnro43-22-1278 08:51-0400Body fnanuf787.4 cmJade Sims MD Work Phone: [facility]08-12-2025 08:51-0400 Body mass index (BMI) [Ratio]30.64 kg/n6PoimfwJade Sims MD Work Phone: [facility]08-12-2025 08:51-0400 Body kklobz935.33 kgJade Sims MD Work Phone: [facility]08-12-2025 08:51-0400 Diastolic blood qaarwrcr83 mm[Hg]Jade Sims MD Work Phone: [facility]08-12-2025 08:51-0400 Heart rate72 /minJade Sims MD Work Phone: [facility]08-12-2025 08:51-0400 Systolic blood mm[Hg]Jade Sims MD Work Phone: [facility]06-16-2025 09:00-0400 Body hxroca277.4 cmDenjose r Bermudezlong DO Work Phone: [facility] [place] Eazccp11-70-0074 09:00-0400Body mass index (BMI) [Ratio]30.75 kg/s8Koyvxf Furlong DO Work Phone: [facility] [place] Coyhgh40-09-3643 09:00-0400Body mllwijmvzsu08.01 [degF]Josh Bermudezlong DO Work Phone: [facility] [place] Qrfdjo82-37-8234 09:00-0400Body yvttfb121.69 kgDenjose r Bermudezlong DO Work Phone: [facility] [place] Jeuxjs28-34-4531 09:00-0400Diastolic blood dvssteyi15 mm[Hg]Josh Bermudezlong DO Work Phone: [facility] [place] Nvfnua95-39-6689 09:00-0400Heart rate 61 /minDkingston Bermudezlong DO Work Phone: [facility] [place] Elnyso65-28-1199 09:00-0400 Respiratory rate20 /minDcallieis Laralong DO Work Phone: [facility] [place] Fxxabe92-85-6551 09:00-7440QtE2% (BldA) [Mass fraction]96 %Josh Bermudezlong DO Work Phone: [facility] [place] Rclgju81-53-6850 09:00-0400Systolic blood smsugxza811 mm[Hg]Josh Bermudezlong DO Work Phone: [facility] [place] Lowqmn78-33-7946 13:57-0500Body rkagcm7122.28 cmDenjose r Bermudezlong DO Work Phone: 1(419)547-[address] [place], [place] 0213001-23-2025 13:57-0500 Body mass index (BMI) [Ratio]0.3 kg/k3Ypyiqy Furlong DO Work Phone: 1419[facility] [place], [place] 0213001-23-2025 13:57-0500 Body .87 kgDennis Furlong DO Work Phone: [phone])[address] [place], [place] 628[address]01-23-2025 13:57-0500 Diastolic blood vekwluxx85 mm[Hg]Josh Furlong DO Work Phone: 1419[facility] [place], [place] 0213001-23-2025 13:57-0500 Heart rate73 /minDennis Furlong DO Work Phone: [address] [place], [place] 628[address]01-23-2025 13:57-0500 SaO2% (BldA) [Mass fraction]97 %Josh Furlong DO Work Phone: [address] [place], [place] [address]01-23-2025 13:57-0500 Systolic blood rzicnbyc377 mm[Hg]Josh Furlong DO Work Phone: [address] [place], [place] [address]28[address]12-18-2024 11:34-0500 Diastolic blood egclvjfn46 mm[Hg]Josh Furlong DO Work Phone: 1(633)[facility] [place], [place] 0213012-18-2024 11:34-0500 Heart rate52 /minDennis Furlong DO Work Phone: 1419[facility] [place], [place] 0213012-18-2024 11:34-0500 Respiratory rate20 /minDennis Furlong DO Work Phone: 1419)[facility] [place], [place] 02[address]012-18-2024 11:34-0500 SaO2% (BldA) [Mass fraction]99 %Josh Furlong DO Work Phone: 1419)[facility] [place], [place] 02[address]012-18-2024 11:34-0500 Systolic blood kddpchit184 mm[Hg]Josh Furlong DO Work Phone: 1(654)[facility] [place], [place] 02[address]012-18-2024 08:37-0500 Body nltzoj909.42 cmDennis Furlong DO Work Phone: [facility]12-18-2024 08:37-0500 Body .51 kgDennis Furlong DO Work Phone: [facility]12-16-2024 09:33-0500 Body sadrxi418.4 cmDennis Furlong DO Work Phone: [facility]12-16-2024 09:33-0500Body mass index (BMI) [Ratio]30.32 kg/l6Mxjeiq Furlong DO Work Phone: [facility]12-16-2024 09:33-0500Body zzbnymhjfby74.2 [degF]Josh Bermudezlong DO Work Phone: [facility]12-16-2024 09:33-0500Body jycvfl141.24 kgDennis Furlong DO Work Phone: [facility]12-16-2024 09:33-0500Diastolic blood zkixpfuf60 mm[Hg]Joshjose r Bermudezlong DO Work Phone: [facility]12-16-2024 09:33-0500Heart rate 72 /minDcallieis Furlong DO Work Phone: [facility]12-16-2024 09:33-0500 Respiratory rate18 /minDennis Furlong DO Work Phone: [facility]12-16-2024 09:33-9343YbB3% (BldA) [Mass fraction]99 %Josh Laralong DO Work Phone: [facility]12-16-2024 09:33-0500Systolic blood tayrmedx738 mm[Hg]Josh Bermudezlong DO Work Phone: [facility]11-05-2024 10:51-0500Body .42 [facility]-05-2024 10:51-0500Body mass index (BMI) [Ratio]30 kg/e8VeuejsuwaWooster Community Hospital11-05-2024 10:51-0500Body wproqj759.41 kgW[facility]oster [facility] Hospital11-05-2024 10:51-0500Diastolic blood nwpknyob30 mm[Hg][facility] 03-22-2024 10:51-0500Heart rate67 /minW[facility]oster Community Hospital 03-22-2024 10:51-7336LoH9% (BldA) [Mass fraction]98 %[facility]11-05-2024 10:51-0500Systolic blood cmnetxgx247 mm[Hg][facility]11-05-2024 08:42-0500Body kchwre210.4 cmJade Sims MD Work Phone: [phone])547-[address] [place], [place] 5743911-05-2024 08:42-0500 Body mass index (BMI) [Ratio]29.95 kg/e1BufavfJade Sims MD Work Phone: 5(316)205-[address] [place], [place] 5743911-05-2024 08:42-0500 Body xvulye172.97 kgJade Sims MD Work Phone: 2(767)438-[address] [place], [place] 5743911-05-2024 08:42-0500 Diastolic blood avsdmbjg61 mm[Hg]Jade Sims MD Work Phone: [facility]11-05-2024 08:42-0500 Heart rate64 /minJade Sims MD Work Phone: [phone])928-[address] [place], [place] 5743911-05-2024 08:42-0500 Systolic blood ilgyckiu416 mm[Hg]Jade Sims MD Work Phone: 5(241)722-[address] [place], [place] 5743902-08-2024 09:55-0500 Body mass index (BMI) [Ratio]29.34 kg/k7Tpfodp Furlong DO Work Phone: [facility] Xerqcz90-80-4882 09:55-0500Body bpvxpe443.88 kgYohannis Furlong DO Work Phone: [facility] HospitalRayn Gqaogy50-96-8482 08:39-0500Body uakmdv584.4 cmJade Sims MD Work Phone: 5(661)805-[address] [place], [place] 5743902-01-2024 08:39-0500 Body mass index (BMI) [Ratio]29.82 kg/c8YbmbvrJade Sims MD Work Phone: 0(813)[address]02-01-2024 08:39-0500 Body kgorbb100.51 kgJade Sims MD Work Phone: 3(504)[address]02-01-2024 08:39-0500 Diastolic blood rwuopljk28 mm[Hg]Jade Sims MD Work Phone: 6(527)[address]02-01-2024 08:39-0500 Heart rate62 /minJade Sims MD Work Phone: 2(665)[address]96 [address]02-01-2024 08:39-0500 Systolic blood hrnwyysn370 mm[Hg]Jade Sims MD Work Phone: 1(180)863-[address] [place], [place] 574[address]11-10-2022 16:00-0500 Body heightAryan Garcia Other [employer] Other 11-10-2022 16:00-0500Body mass index (BMI) [Ratio] 29.81 kg/o4IpgapAryan Garcia Other [employer] Other 11-10-2022 16:00-0500Body kjtttuphsgz75.9 [degF]Aryan Garcia Other [employer] Other 11-10-2022 16:00-0500Body pnjoak116.51 kgAryan Garcia Other [employer] Other 11-10-2022 16:00-0500Diastolic blood lbzrcokv98 mm[Hg] [facility] [employer] Other 11-10-2022 16:00-1228XsG6% (BldA) [Mass fraction]100 % Aryan Garcia [facility] [employer] Other 11-10-2022 16:00-0500Systolic blood pphxydjx566 mm[Hg] Aryan Garcia Other [place] [employer] Other Encounters Encounter DateEncounter TypeCare ProviderFacilityStart: 57-35-4826pkfyppuzglrhoda Lazocility:[place]Start: 53-46-8702uxvwjfzzdtFjedhxo R WATERS Facility:[place]vueStart: 86-69-6197wlybpqeszfAanpmrw R WATERSFacility:EU [place]vueStart: 03-03-2025 End: 00-69-9116fbksujncmaOifyvls R WATERSFacility:EU [place]vueStart: 02-06-2025 End: 01-83-8142XspkgwHmprhq G Furlong DO Work Phone: [facility] MedicineStart: 02-03-2025 End: 09-46-3777sstsxiajsjNfqfagm R WATERSFacility:[place]vueStart: 01-09-2025 End: 06-61-9038QwesggVqktja G Furlong DO Work Phone: [facility] Family MedicineStart: 12-27-2024 End: 98-77-8976Jwjhcr outpatient visit 25 minutesJade Sims MD Work Phone: [facility] on above:ASCVD (arteriosclerotic cardiovascular disease) (Primary Dx); Peripheral vascular disease; Essential hypertension; Mixed hyperlipidemia; Other specified diabetes mellitus without complication, without long-term current use of insulin; Obstructive sleep apnea syndrome; Former smoker; Obesity (BMI 30-39.9); Intermittent claudicationStart: 12-27-2024 End: 66-85-6395elcxdejbmwLYHUJW [facility] AmbulatoryStart: 12-14-2024 End: 09-23-8482mbgcufayfpEhwefi TannaFacility:EU [place]vueStart: 12-13-2024 End: 76-97-1473tpllnhkplgXclblrl R WATERSFacility:CD:[id number]: 11-16-2024 End: 21-51-1973apkeqhzqgdYmfinep R WATERSFacility:EU [place]vueStart: 11-14-2024 End: 11-42-9580fckmqelybrRiogbco R WATERSFacility:EU BellevueStart: 11-01-2024 End: 92-02-2267Ayknld OnlyJosh Maciel DO Work Phone: [facility] - Family MedicineComment on above:Type 2 diabetes mellitus with diabetic polyneuropathy, without long-term current use of insulin ([facility]) (Primary Dx)Start: 10-31-2024 End: 98-41-3322Lgwlfh outpatient visit 25 Lila Maciel DO Work Phone: [facility] Family MedicineComment on above:Type 2 diabetes mellitus with diabetic polyneuropathy, without long-term current use of insulin ([facility]) (Primary Dx); Essential hypertension; Class 1 obesity due to excess calories with serious comorbidity and body mass index (BMI) of 30.0 to 30.9 in adult; Hyperlipidemia, unspecified hyperlipidemia type; Peripheral vascular disease; ThrombocytopeniaStart: 10-31-2024 End: 96-88-5306fvzlqksllbNPPUCIYork General Hospital Ambulatory PPGStart: 10-17-2024 End: 78-06-5240xfhozxcxpjXwxfzhh R WATERSFacility:EU BellevueStart: 09-19-2024 End: 96-93-2305qldxiysopaPonwdom R WATERSFacility:EU BellevueStart: 08-22-2024 End: 52-40-5534pjqergabjnIzbnrhc R WATERSFacility:EU BellevueStart: 08-08-2024 End: 65-30-1693RchvicBmxbd Angelique CMAProMedica Physicians Internal Medicine - Family MedicineStart: 08-04-2024 End: 93-75-3860RecmkqUzqshgoo [facility] Physicians Internal Medicine - Family MedicineComment on above:Type 2 diabetes mellitus with diabetic polyneuropathy, without long-term current use of insulin ([facility])Start: 07-25-2024 End: 56-04-9587zfqichirkfRlxaygc R WATERSFacility:EU BellevueStart: 07-23-2024 End: 12-61-9528BrnlffUflpxq G Furlong DO Work Phone: [facility] Physicians Internal Medicine - [facility] MedicineStart: 07-18-2024 End: 37-76-0253iaqhiecojhEdqhwoc R WATERSFacility:EU BellevueStart: 07-11-2024 End: 80-03-3282ZkbkfkFkvif Angelique [facility] Physicians Internal Medicine - [facility] MedicineStart: 06-27-2024 End: 91-38-2048atlgtdcnjxSskmpgn R WATERSFacility:EU BellevueStart: 06-09-2024 End: 14-54-8876pdifbxamxdHaofjo Furlong DO Work Phone: [facility] Work Phone: Start: 06-09-2024 End: 37-36-3029Qggrhun encounter procedureDennis Furlong DO Work Phone: [facility] Work Phone: Start: 05-30-2024 End: 39-26-8944wjzadqqlayJgdgpxi R WATERSFacility:EU BellevueStart: 05-04-2024 Non-patient / Non-visitDennis Furlong DO Work Phone: [facility] Work Phone: Start: 08-80-7266Zkp-patient / Non-visitDennis Furlong DO Work Phone: [facility] Work Phone: Start: 05-04-2024 End: 13-20-7697Pirrrakhn to same day surgery castle rockJosh Maciel DO Work Phone: [facility] Work Phone: Start: 05-04-2024 End: 21-00-8952sfesfdeepdYryf AsaadFacility:[facility] Start: 05-02-2024 End: 80-21-9494utzjxugzmgVQNFIPWise Health System East Campus HospitalStart: 05-02-2024 End: 28-99-5953enginixyvsRxiuunhDom Tangity:INES BellevueStart: 05-02-2024 End: 59-00-3217Pwuwtm outpatient visit 25 minutesLutheran Medical Centerjose r Maciel DO Work Phone: [facility] - Family MedicineComment on above:Type 2 diabetes mellitus with diabetic polyneuropathy, without long-term current use of insulin ([facility] (Primary Dx); Essential hypertension; Peripheral vascular disease ([facility]); ASCVD (arteriosclerotic cardiovascular disease); Class 1 obesity due to excess calories with serious comorbidity and body mass index (BMI) of 30.0 to 30.9 in adult; MyalgiaStart: 05-02-2024 End: 01-29-9196uxaxssgicrSPYVYFCentennial Peaks Hospital Ambulatory PPGStart: 04-24-2024 End: 44-53-4773HtoiljSosvqk G Furlong DO Work Phone: [facility] - Family MedicineStart: 04-04-2024 End: 76-99-9775ldiuomaipzFlxhurzDom Tangity:INES BellevueStart: 03-22-2024 End: 30-12-5015epbmuvvnavAkkawzbdmC[facility] Work Phone: Start: 03-22-2024 End: 55-49-5226Wnppjiy encounter procedureNov[facility] Work Phone: Start: 03-22-2024 End: 39-73-9313Tytskc outpatient visit 25 minutesJade Sims MD Work Phone: [facility] CenterComment on above:ASCVD (arteriosclerotic cardiovascular disease) (Primary Dx); Peripheral vascular disease (CMS-HCC); Essential hypertension; Hyperlipidemia, unspecified hyperlipidemia type; Other specified diabetes mellitus without complication, without long-term current use of insulin; Obstructive sleep apnea syndrome; Former smoker; BMI 29.0-29.9,adult; Diabetes mellitus type II, non insulin dependent (Multi)Start: 03-22-2024 End: 21-43-3328ynhfhttupdNEPNJS M [facility] AmbulatoryStart: 02-29-2024 End: 79-99-1474HlneghLorena Cochran Laura Janell DO Work Phone: [facility] Physicians Internal Medicine - Family MedicineComment on above:Normocytic normochromic anemia (Primary Dx); Type 2 diabetes mellitus with diabetic polyneuropathy, without long-term current use of insulin ([facility]); Essential hypertensionStart: 01-12-2024 End: 87-32-8352adlfgfxpjyFuyxg Jeffry LueFacility:EU BellevueStart: 12-28-2023 ambulatoryPatrick R WATERSFacility:FTMCStart: 12-28-2023 End: 82-72-6096fqojptdnlmDpxdvqf R WATERSFacility:EU BellevueStart: 11-02-2023 End: 59-37-7689mzrptrbvisBkkzseb R WATERSFacility:EU BellevueStart: 07-02-2023 aNvarro Richards [facility]ly [facility] HospitalMedica Physicians Internal Medicine - Family MedicineComment on above:Type 2 diabetes mellitus with diabetic polyneuropathy, without long-term current use of insulin ([facility]) (Primary Dx)Start: 07-01-2023 RefillMisty Angelique [facility] Physicians Internal Medicine - Family Medicine Comment on above:Type 2 diabetes mellitus with diabetic polyneuropathy, without long-term current use of insulin ([facility]) (Primary Dx)Start: 55-42-6094Sqrtpi Belkys Angelique [facility] Physicians Internal Medicine - Family MedicineStart: 08-93-5444Gyendq OnlyJosh Casillasng DO Work Phone: [facility] MedicineStart: 06-25-2023 End: 77-17-7914Emhvig outpatient visit 25 minutesJosh Casillasng DO Work Phone: [facility] HospitalComment on above:Type 2 diabetes mellitus with diabetic polyneuropathy, without long-term current use of insulin ([facility]) (Primary Dx); Normocytic normochromic anemia; Peripheral vascular disease (CMS-HCC); Thrombocytopenia ([facility])Start: 85-24-8326EoqjheLhtaf Angelique [facility]ITALPro[facility] - [facility] MedicineStart: 06-18-2023 End: 35-58-7495Hgklap outpatient visit 25 minutesJade Sims MD Work Phone: [facility] CenterComment on above:ASCVD (arteriosclerotic cardiovascular disease) (Primary Dx); Peripheral vascular disease ([facility]); Essential hypertension; Hyperlipidemia, unspecified hyperlipidemia type; Other specified diabetes mellitus without complication, without long-term current use of insulin ([facility]); Former smoker; OverweightStart: 27-21-9445hzshuyowiaGwAlex SimsFacility:9844 Start: 48-81-1476Gdacqp outpatient visit 25 minutesJosh Casillasng Work Phone: [facility] Work Phone: Start: 11-96-1122Hv RenewalJosh Bermudezlong Work Phone: [phone]-Ehibw [facility] [address] DO Work Phone: Start: 04-26-2022 End: 38-60-8206jgtmyqtvjyUS JOSH CASILLASNGFacility:Q8Nkdmh: 03-27-2022 End: 13-83-7178Aqzjwlf encounter procedureDO Josh Bermudezlong Work Phone: [facility]-Sleep LabStart: 03-27-2022 End: 84-12-5459jgydugkucrUZ Josh Furlong Work Phone: [facility] Work Phone: Start: 16-17-4003Ytqhmu outpatient visit 25 minutes Aryan [facility] SouthStart: 55-69-7892fpsswofvpyTvAlex Gilmoredevan SimsFacility:54930Bkzrc: 01-10-2022 End: 41-59-3073vsxmevlhqsKP DENNIS G VINNYNGFacility:I2Ljvzf: 89-86-7901Qp RenewalJosh Sanchez Furlong Work Phone: [phone]-Pytnd [facility] [address] DO Work Phone: Start: 36-19-4270Lr RenewalJosh Bermudezlong Work Phone: [phone]-Mldpm [facility] [address] DO Work Phone: Start: 02-87-4267Sk RenewalJosh Bermudezlong Work Phone: [phone]-Gypzr [facility] [address] DO Work Phone: Start: 10-26-2021 End: 62-76-1908qathrcvgniFA DENNIS G LARAMARCONGFacility:S2Zybgg: 07-24-2021 End: 71-61-9176xndwpctvagUG MATTHEW MORROWFacility:K3Zygtw: 07-13-2021 End: 26-13-3391grqllbhkhqGP MATTHEW MORROWFacility:G4Npmrg: 26-10-3989zauoteggpq DR JOSH Sanchez VINNYNGFacility:A8Ptcgx: 28-13-3068ssxcozmvmpOvzopm Willy Furlong Facility:[id number]: 07-06-2017 End: 58-53-9971XpqaeliblvNGGHQPOSF [facility] Procedures DateProcedureProcedure DetailPerforming ClinicianStart: 82-27-9812Cfbpd depression screening assessmentDennis Furlong DO Work Phone: Start: 05-04-2024 End: 54-77-9719XewohixplihGnwtnh Furlong DO Work Phone: Start: 59-24-0841Wpnru depression screening assessment Josh BermudezTile Work Phone: Start: 56-54-0620Nmioborzpemf [Mass/volume] in Urine by Test stripMisty Angelique CMAStart: 94-13-4441Bzgpwcfg retinal eye examDenjose r BermudezTile Work Phone: Start: 66-21-1830Viyla depression screening assessment Josh BermudezTile Work Phone: Start: 33-86-4787Kwdlc Ricky Sims MD Work Phone: Start: 98-79-2468Kyijj depression screening assessment Belkys Angelique CMAStart: 02-05-0403Hsamawuiqcvl [Mass/volume] in Urine by Test stripMisty Angelique CMAStart: 15-68-6158Sgesgecg retinal eye examMisty Angelique CMAStart: 44-80-8840XQM screeningDR SHADY BREENComment on above:Performed By: #### PSAD #### [facility] [address] [place] [address] Dr. Juan Alberto CarranzaStart: 09-20-0212Mfm any jt upper extremity w/o contrast matrl EILEEN SHINEStart: 13-46-1704OptinqkwkjgQvpmzn Ibrahim MD Work Phone: Angioplasty of blood vesselDenSpruce Media Work Phone: Decompression of median nerveDenSpruce Media Work Phone: Percutaneous transluminal coronary angioplastyDenSpruce Media Work Phone: Repair of shoulderDenSpruce Media Work Phone: Screening for malignant neoplasm of colonDavid Jose Other Surgical procedureDenSpruce Media Work Phone: Comment on above:History of Stent Indications;Total colonoscopyDenSpruce Media Work Phone: Total replacement of hipJosh Maciel Work Phone: Plan of Treatment DateCare ActivityDetailAuthorStart: 82-85-4380Uvbnheevx for malignant neoplasm of colonUniversity Hospitals TriPoint Medical Center: 00-70-7061Lycluaoys for malignant neoplasm of colonColon Cancer Screening 5 Year SigmoidoscopyProShoals Hospital Health SystemComment on above:Postponed from 10/19/2000 (Not Indicated)Start: 19-27-9740Ukmetelu screeningDiabetes: Retinopathy ScreeningUniversity Hospitals TriPoint Medical Center: 59-10-5433Amtcv BMI Follow Up PlanAdult BMI Follow Up Plan [facility] SystemStart: 09-76-3255Tnddw BMI ScreeningAdult BMI Screening [facility] SystemStart: 90-46-8680Ilqzntjwhh ScreeningDepression Screening [facility] SystemStart: 76-26-8245Cwmm Risk ScreeningFall Risk Screening [facility] SystemStart: 36-69-4849Rwmmfun ScreeningTobacco Screening [facility] SystemStart: 09-20-2025 End: 58-57-9448Kzlwrbc encounter hfvnkdbow37/06/2026 8:40 AM EDT Office Visit [facility] [address] [phone] Jade Sims MD 703 [facility] 2, [facility] [address] [place] [address] [facility]: 05-03-2025 End: 76-00-3693Xmcbrtx encounter wvlsyyvkl60/17/2025 9:30 AM EST Office Visit [facility] [address] [place] [phone] Josh Maciel, DO [address] [place] [address] [facility] - Family MedicineStart: 08-39-7679Ewvzk BMI ScreeningAdult BMI ScreeningProClinton Memorial Hospital SystemStart: 96-30-6942Mbiqycxumm ScreeningDepression ScreeningProClinton Memorial Hospital SystemStart: 09-88-8130Ubom Risk ScreeningFall Risk ScreeningWadsworth-Rittman Hospital SystemStart: 29-32-3887Hverwim ScreeningTobacco ScreeningProClinton Memorial Hospital SystemStart: 03-17-3393Nljwn screening for proteinUrine MicroalbuminWadsworth-Rittman Hospital SystemStart: 04-01-2025 Glaucoma screeningDiabetic Ophthalmology ExamProClinton Memorial Hospital SystemStart: 70-61-0060IFXSH-19 Vaccine ( season)COVID-19 Vaccine ()[facility] Health SystemStart: 98-20-7322Ymhbjfeyk vaccinationWadsworth-Rittman Hospital SystemStart: 12-27-2024 End: 77-87-7694Eluwsbj aminotransferase [Enzymatic activity/volume] in Serum or Plasma by With P-5'-PAlanine Aminotransferase Lab Routine ASCVD (arteriosclerotic cardiovascular disease) Mixed hyperlipidemia Expected: 12/27/2024 (Approximate), Expires: 12/27/2025[facility] Service Area Work Phone: Comment on above:Expected: 12/27/2024 (Approximate), Expires: 12/27/2025Start: 12-27-2024 End: 60-84-7378Cftiaipue aminotransferase [Enzymatic activity/volume] in Serum or Plasma by With P-5'-PAspartate Aminotransferase Lab Routine ASCVD (arteriosclerotic cardiovascular disease) Mixed hyperlipidemia Expected: 12/27/2024 (Approximate), Expires: 12/27/2025[facility] Work Phone: Comment on above:Expected: 12/27/2024 (Approximate), Expires: 12/27/2025Start: 12-27-2024 End: 34-59-6121Nmtwi metabolic 2000 panel - Serum or PlasmaBasic Metabolic Panel Lab Routine ASCVD (arteriosclerotic cardiovascular disease) Essential hyperten nicholas Expected: 12/27/2024 (Approximate), Expires: 12/27/2025[facility] Work Phone: Comment on above:Expected: 12/27/2024 (Approximate), Expires: 12/27/2025Start: 12-27-2024 End: 76-22-5783KIH panel - Blood by Automated countCBC Lab Routine ASCVD (arteriosclerotic cardiovascular disease) Peripheral vascular disease Expected: 12/27/2024 (Approximate), Expires: 12/27/2025[facility] Work Phone: Comment on above:Expected: 12/27/2024 (Approximate), Expires: 12/27/2025Start: 12-27-2024 End: 25-82-7761Plnfk 1996 panel - Serum or PlasmaLipid Panel Lab Routine ASCVD (arteriosclerotic cardiovascular disease) Mixed hyperlipidemia Expected: 12/27/2024 (Approximate), Expires: 12/27/2025[facility] Work Phone: Comment on above:Expected: 12/27/2024 (Approximate), Expires: 12/27/2025Start: 12-27-2024 End: 96-28-4390Dkpubvj encounter epiwqgmjg66/12/2025 8:50 AM EDT Office Visit [facility] 7[address] [facility] [address] [place] [phone] Jade Sims MD [address] [facility] 2, [facility] [address] [place] [address] [facility] CenterStart: 10-31-2024 End: 75-31-5793Itbbzrd encounter snnfbutvo87/16/2025 9:00 AM EDT Office Visit [facility] [address] [place] [address] Josh Maciel, [address] [place] [address] [facility] - Family MedicineStart: 39-80-2256NAiU,Tdap and Td Vaccines (2 - Td or Tdap)DTaP,Tdap and Td Vaccines (2 - Td or Tdap)[facility]: 48-26-2839MViP/Tdap/Td Vaccines (2 - Td or Tdap)DTaP/Tdap/Td Vaccines (2 - Td or Tdap)[facility]: 85-27-7205Tufxw BMI ScreeningAdult BMI ScreeningProClinton Memorial Hospital SystemStart: 06-25-2024 Depression ScreeningDepression ScreeningWadsworth-Rittman Hospital SystemStart: 06-25-2024 Fall Risk ScreeningFall Risk ScreeningWadsworth-Rittman Hospital SystemStart: 06-25-2024 Tobacco ScreeningTobacco ScreeningProClinton Memorial Hospital SystemStart: 35-10-1515KZCQK- 19 Vaccine ()COVID-19 Vaccine ()[facility] SystemComment on above:Postponed from 01/17/2024 (Patient Refused)Start: 15-22-3533Jjgxr BMI ScreeningAdult BMI ScreeningProClinton Memorial Hospital SystemStart: 28-65-5326Typepswuuh ScreeningDepression ScreeningProSt. Anthony's Hospitaltart: 71-76-9864Yxuzvble foot examinationDiabetic Foot ExamOhioHealth Doctors Hospital Start: 07-24-9432Cjar Risk ScreeningFall Risk ScreeningOhioHealth Doctors Hospital Start: 25-78-8466Dzhvkwq ScreeningTobacco ScreeningSelect Specialty Hospital - Durhamtart: 44-97-1159Quhmj screening for [facility]: 40-44-1947KzgevpkulCleveland Clinictart: 05-02-2024 End: 33-21-2728Cyhapsw encounter xqfslavtt92/16/2024 9:30 AM EST Office Visit [facility] [address] [place] [address] Josh Maciel, [address], [facility] [place] [address] [facility] - Family MedicineStart: 09-85-7080Epmmraria for malignant neoplasm of [facility]: 03-22-2024 End: 80-15-0796Whixtwu aminotransferase [Enzymatic activity/volume] in Serum or Plasma by With P-5'-PAlanine Aminotransferase Lab Routine ASCVD (arteriosclerotic cardiovascular disease) Hyperlipidemia, unspecified hyperlipidemia type Expected: 03/22/2024 (Approximate), Expires: 03/22/2025[facility] Work Phone: Comment on above:Expected: 03/22/2024 (Approximate), Expires: 03/22/2025Start: 03-22-2024 End: 04-24-0380Wtqwzvtqq aminotransferase [Enzymatic activity/volume] in Serum or Plasma by With P-5'-PAspartate Aminotransferase Lab Routine ASCVD (arteriosclerotic cardiovascular disease) Hyperlipidemia, unspecified hyperlipidemia type Expected: 03/22/2024 (Approximate), Expires: 03/22/2025 [facility] Work Phone: Comment on above:Expected: 03/22/2024 (Approximate), Expires: 03/22/2025Start: 03-22-2024 End: 87-78-5468Piipx metabolic 2000 panel - Serum or PlasmaBasic Metabolic Panel Lab Routine ASCVD (arteriosclerotic cardiovascular disease) Essential hyperten nicholas Expected: 03/22/2024 (Approximate), Expires: 03/22/2025[facility] Work Phone: Comment on above:Expected: 03/22/2024 (Approximate), Expires: 03/22/2025Start: 03-22-2024 End: 60-10-1830AFC panel - Blood by Automated countCBC Lab Routine ASCVD (arteriosclerotic cardiovascular disease) Expected: 03/22/2024 (Approximate), Expires: 03/22/2025[facility] Work Phone: Comment on above:Expected: 03/22/2024 (Approximate), Expires: 03/22/2025Start: 03-22-2024 End: 43-16-7226Hixbn 1996 panel - Serum or PlasmaLipid Panel Lab Routine ASCVD (arteriosclerotic cardiovascular disease) Hyperlipidemia, unspecified hyperlipidemia type Expected: 03/22/2024 (Approximate), Expires: 03/22/2025 [facility] Work Phone: Comment on above:Expected: 03/22/2024 (Approximate), Expires: 03/22/2025Start: 03-22-2024 End: 64-47-3523Zqappbc encounter hzrmaxurp71/05/2024 8:40 AM EST Office Visit [facility] [address] [facility] [address] [place] [address] Jade Sims MD [facility] [facility] [address] [place] [address] [facility] CenterStart: 74-06-8999HYWIK-19 Vaccine ( season)COVID-19 Vaccine ( season)[facility] SystemStart: 53-08-0822ZJHLG-19 Vaccine ( season)COVID-19 Vaccine ( season)[facility]icPark [facility] SystemStart: 50-58-6055QYGCG-19 Vaccine ( season)COVID-19 Vaccine ( season)ProMEssentia Health SystemStart: 58-97-7529OHFDF-19 Vaccine ( season)COVID-19 Vaccine ( season)[facility] InstituteStberkshire: 74-14-9821SJEZI-19 Vaccine ( season)COVID-19 Vaccine ( season)[facility] InstituteStberkshire: 43-58-3774Jrifibvgt vaccinationInfluenza VaccineProClinton Memorial Hospital SystemStart: 05-03-2024Medicare Annual Wellness VisitMedicare Annual Wellness VisitProMedica Health SystemStart: 06-25-2023 End: 04-24-5099Phamrwt encounter yifymgjfo50/08/2024 10:00 AM EST Office Visit [facility] [address] [place] [address] Josh Maciel, DO [address], [place] [address] [facility] - Family MedicineStart: 06-18-2023 End: 84-15-9441Hlooqfn aminotransferase [Enzymatic activity/volume] in Serum or Plasma by With P-5'-PAlanine Aminotransferase Lab Routine ASCVD (arteriosclerotic cardiovascular disease) Peripheral vascular disease (CMS/HCC) Essential hypertension Hyperlipidemia, unspecified hyperlipidemia type Other specified diabetes mellitus without complication, without long-term current use of insulin (CMS/HCC) Expected: 06/18/2023 (Approximate), Expires: 06/18/2024[facility] Service Area Work Phone: Comment on above:Expected: 06/18/2023 (Approximate), Expires: 06/18/2024Start: 06-18-2023 End: 73-44-1727Pqrmtbybe aminotransferase [Enzymatic activity/volume] in Serum or Plasma by With P-5'-PAspartate Aminotransferase Lab Routine ASCVD (arteriosclerotic cardiovascular disease) Peripheral vascular disease (CMS/HCC) Essential hypertension Hyperlipidemia, unspecified hyperlipidemia type Other specified diabetes mellitus without complication, without long-term current use of insulin (CMS/HCC) Expected: 06/18/2023 (Approximate), Expires: 06/18/2024 [facility] Work Phone: Comment on above:Expected: 06/18/2023 (Approximate), Expires: 06/18/2024Start: 06-18-2023 End: 94-97-8905Bxryn metabolic 2000 panel - Serum or PlasmaBasic Metabolic Panel Lab Routine ASCVD (arteriosclerotic cardiovascular disease) Peripheral vascular disease (CMS/HCC) Essential hypertension Hyperlipidemia, unspecified hyperlipidemia type Other specified diabetes mellitus without complication, without long-term current use of insulin (CMS/HCC) Expected: 06/18/2023 (Approximate), Expires: 06/18/2024[facility] Work Phone: Comment on above:Expected: 06/18/2023 (Approximate), Expires: 06/18/2024Start: 06-18-2023 End: 56-74-9245YUM panel - Blood by Automated countCBC Lab Routine ASCVD (arteriosclerotic cardiovascular disease) Peripheral vascular disease (CMS/HCC) Essential hypertension Hyperlipidemia, unspecified hyperlipidemia type Other specified diabetes mellitus without complication, without long-term current use of insulin (CMS/HCC) Expected: 06/18/2023 (Approximate), Expires: 06/18/2024 [facility] Work Phone: Comment on above:Expected: 06/18/2023 (Approximate), Expires: 06/18/2024Start: 06-18-2023 End: 92-33-1832Qljyq 1996 panel - Serum or PlasmaLipid Panel Lab Routine ASCVD (arteriosclerotic cardiovascular disease) Peripheral vascular disease(CMS/HCC) Essential hypertension Hyperlipidemia, unspecified hyperlipidemia type Other specified diabetes mellitus without complication, without long-term current use of insulin (CMS/HCC) Expected: 06/18/2023 (Approximate), Expires: 06/18/2024 [facility] Work Phone: Comment on above:Expected: 06/18/2023 (Approximate), Expires: 06/18/2024Start: 71-71-2571SIB, Provider: Jade Sims, Status: Pen, Time: 9:00 [facility], Provider: Jade Sims, Status: Pen, Time: 9:00 [facility] Work Phone: Start: 84-96-5462Txvtyrwy [facility] CenterStart: 14-92-5568NCCMQ-19 Vaccine ( season) COVID-19 Vaccine ()[facility] SystemStart: 01-16-2023 COVID-19 Vaccine ()COVID-19 Vaccine () [facility] SystemStart: 45-36-7268ZDNJR-19 Vaccine () COVID-19 Vaccine ( season)[facility] InstituteStart: 35-65-2232LCEHZKH, Provider: CECILIA CAMPBELL ULTRASOUND 01,[id number], Status: Pen, Time: 7:45 AMAOILIVC, Provider: [facility] 01,[id number], Status: Pen, Time: 7:45 [facility]: Start: 07-18-1571QXD, Provider: Jade Sims, Status: Pen, Time: 8:40 AMFUV, Provider: Jade Sims, Status: Pen, [facility]: [facility]:40 [facility] Work Phone: Start: 35-51-2962KWZ, Provider: Jade Sims, Status: Pen, Time: 8:30 AMFUV, Provider: Jade Sims, Status: Pen, Time: 8:30 [facility] DO Work Phone: Start: 06-43-5447ACQ High Risk: (Elderly (60+) or Population) (1 - Risk 60-74 years 1-dose series)RSV High Risk: (Elderly (60+) or Population) (1 - Risk 60-74 years 1-dose series)[facility]: 46-96-9203Okwxedip specific antigen measurementPSA Prostate Cancer ScreeningUnSt. Mary's Medical Center: 10-19-2000 Screening for malignant neoplasm of colonColon Cancer Screening 5 Year SigmoidoscopyProClinton Memorial Hospital SystemStart: 03-10-6599Tfhjk BMI Follow Up Plan Adult BMI Follow Up PlanWadsworth-Rittman Hospital SystemStart: 07-28-3235Yvhutorck C screeningHepatitis C ScreeningUnSt. Mary's Medical Center: 10-19-1965 Diabetic foot examinationDiabetes: Foot ExamUnUC [facility] Start: 15-06-6792Wxvydobh screeningDiabetes: Retinopathy ScreeningUnSt. Mary's Medical Center: 40-50-9561UWW Vaccines (1 of 1 - Standard series) MMR Vaccines (1 of 1 - Standard series)[facility]: 17-98-5144Nqatqnaovz A1c measurementDiabetes: Hemoglobin H6UAgkksxyquaUniversity Hospitals TriPoint Medical Center: 78-19-7314Ezttn panelLipid PanelUnSt. Mary's Medical Center: 06-04-1956Medicare Annual Wellness VisitMedicare Annual Wellness Visit (AWV)[facility]: 42-35-5442Yhzjygxgv for malignant neoplasm of [facility]: 1955 Statin Use: CardiovascularStatin Use: CardiovascularProRayn System Start: 38-87-0111Dpbdhr Use: DiabeticStatin Use: DiabeticNortheastern Vermont Regional HospitalRayn System End: 54-55-2508Mpvdz metabolic 2000 panel - Serum or PlasmaBasic Metabolic Panel Lab Routine Essential hypertension 1 Occurrences starting 02/29/2024 until ProRayn SystemComment on above:1 Occurrences starting 02/29/2024 until 02/28/2025 End: 00-89-6906PQT panel - Blood by Automated countCBC Lab Routine Normocytic normochromic anemia 1 Occurrences starting 02/29/2024 until 02/28/2025ProRayn SystemComment on above:1 Occurrences starting 02/29/2024 until 02/28/2025 End: 68-78-6441Aabcgrpuiaoaq metabolic 2000 panel - Serum or PlasmaComprehensive metabolic panel Lab Routine Essential hypertension 1 Occurrences starting 10/31/2024 until 10/31/2025[facility] Work Phone: Comment on above:1 Occurrences starting 10/31/2024 until 10/31/2025 End: 10-10-0603Zzquhxkssi A1c/Hemoglobin.total in BloodHemoglobin A1c Lab Routine Type 2 diabetes mellitus with diabetic polyneuropathy, without long-term current use of insulin ([facility]) 1 Occurrences starting 02/29/2024 until 02/28/2025[facility] Work Phone: Comment on above:1 Occurrences starting 02/29/2024 until 02/28/2025 End: 01-61-4466Kfaqgghder A1c/Hemoglobin.total in BloodHemoglobin A1c Lab Routine Type 2 diabetes mellitus with diabetic polyneuropathy, without long-term current use of insulin ([facility]) 1 Occurrences starting 10/31/2024 until 10/31/2025ProRayn SystemComment on above:1 Occurrences starting 10/31/2024 until 10/31/2025 End: 40-68-5473Btepo 1996 panel - Serum or PlasmaLipid profile Lab Routine Hyperlipidemia, unspecified hyperlipidemia type 1 Occurrences starting until 10/31/2025Pro[facility] SystemComment on above:1 Occurrences starting 10/31/2024 until 10/31/2025 End: 94-80-4276Wyxgegswlufy - Albumin: Creatinine Urine RatioMicroalbumin - Albumin: Creatinine Urine Ratio Lab Routine Type 2 diabetes mellitus with diabetic polyneuropathy, without long-term current use of insulin ([facility]) 1 Occurrences starting 05/02/2024 until 05/02/2025ProSelect [facility] Work Phone: Comment on above:1 Occurrences starting 05/02/2024 until 05/02/2025Patient EducationColon polyps Know your [facility] Work Phone: Immunizations Immunization DateImmunizationNotesCare CeynqqltBznkktuh74-73-6229Hydlmysrb, High-dose, QuadrivalentDennis Furlong DO Work Phone: [facility] HospitalPpuifv36-87-7722fwmxcwbou virus vaccine, unspecified formulationDennis Furlong DO Work Phone: [facility] [place] Ntwagn78-86-8849Wtdgfnnyi, High-dose, QuadrivalentMisty Angelique [facility]09-21-2023influenza virus vaccine, unspecified formulationMisty Angelique [facility] 59-73-3668trixwkjhfywd conjugate vaccine, 13 valentMisty Angelique [facility]11-28-2022Prevnar 20 0.5 ML Intramuscular Suspension Prefilled SyringeDennis G Furlong Work Phone: [facility] Work Phone: [phone]-FyvJMhpc COVID-19 Vacc 30 MCG/0.3ML Intramuscular SuspensionDennis G Furlong Work Phone: [facility]03-24-2021Pfizer- BioNTech COVID-19 Vacc 30 MCG/0.3ML Intramuscular SuspensionDennis G Furlong Work Phone: [phone]-FjhpaCuyuna Regional Medical Center 250 DO Work Phone: [phone]cgv Purple Cap KRJQ-CiG-2TsmyxgVinay Sims MD Work Phone: [facility] Work Phone: [phone] COVID-19 Vaccine 100 MCG/0.5ML Intramuscular SuspensionDennis G Furlong Work Phone: [phone]-QwpywCuyuna Regional Medical Center 250 DO Work Phone: [phone]-OnjHGfwv COVID-19 Vacc 30 MCG/0.3ML Intramuscular SuspensionDennis G Furlong Work Phone: [phone]-UgzzhCuyuna Regional Medical Center 250 DO Work Phone: [phone]-92, mRNA, LNP-S, PF, 30mcg/0.3mL Dose Belkys Angelique [facility] HospitalIfolfg60-81-4205xakgtbkegbti polysaccharide vaccine, 23 valentDennis G [facility] Work Phone: [facility]10-01-2020influenza virus vaccine, unspecified formulationDennis G [facility] Work Phone: [phone]-YcsrhCuyuna Regional Medical Center 250 DO Work Phone: [phone]ai, injectable, quadrivalent, preservative Bill Sims MD Work Phone: [facility] Work Phone: [phone], seasonal, injectableMisty Angelique [facility]02-12-2020zoster vaccine recombinantDennis G Furlong Work Phone: [phone]-YanfoCuyuna Regional Medical Center 250 DO Work Phone: [phone]pb vaccine recombinantDennis G Furlong Work Phone: [place] [address] DO Work Phone: [phone]fwra virus vaccine, unspecified formulationDennis G Furlong Work Phone: [phone]-FmlzgMit[place] [address] DO Work Phone: [phone], seasonal, injectableMisty Angelique [facility]10-16-2019influenza, injectable, quadrivalent, contains preservativeDennis G Furlong Work Phone: [phone]-KgslzMit[place] [address] DO Work Phone: [phone]yilyhy, injectable, Madin [place] Canine Kidney, preservative free, quadrivalentDennis G Furlong Work Phone: [phone]-ThfwpMit[place] [address] DO Work Phone: [phone]jeza virus vaccine, unspecified formulationDennis G Furlong Work Phone: [phone]-GdnyzMit[place] [address] DO Work Phone: [phone], injectable, quadrivalent, preservative freeDennis G Furlong Work Phone: [phone]-LcwpeMit[place] [address] DO Work Phone: [phone], injectable, quadrivalent, preservative freeDennis G Furlong Work Phone: [phone]-SvmfrMit[place] [address] DO Work Phone: [phone]jebiiu virus vaccine, unspecified formulationMisty Angelique[facility]11-01-2017influenza virus vaccine, unspecified formulationDennis G Furlong Work Phone: [phone]-ZvskpMit[place] [address] DO Work Phone: [phone] virus vaccine, unspecified formulationDennis G Furlong Work Phone: [phone]-SjhuaElizabeth [place] [address] DO Work Phone: [phone]xwj, seasonal, injectableJosh Sanchez [facility] Work Phone: [phone]-NhednMit[place] [address] DO Work Phone: [phone]jqvdlreb virus vaccine, unspecified formulationJosh Sanchez [facility] Work Phone: [phone]-TpnffMit[place] [address] DO Work Phone: [phone]izdbqoubkbu conjugate vaccine, 13 valent Josh Sanchez [place] Work Phone: [phone]-PhaurMit[place] [address] DO Work Phone: [phone]xkdsze toxoid, reduced diphtheria toxoid, and acellular pertussis vaccine, adsorbedJosh Sanchez [place] Work Phone: [phone]-ByhomMit[place] [address] DO Work Phone: [phone]yujzvive virus vaccine, whole virusJosh Sanchez [place] Work Phone: [phone]-KuiptMit[place] [address] DO Work Phone: [phone]nssyhfvz virus vaccine, unspecified formulationJosh Sanchez [facility] Work Phone: [phone]-FfzadMit[place] [address] DO Work Phone: [phone]ihfciasb virus vaccine, unspecified formulationMisty Angelique [facility]11-01-2011influenza virus vaccine, unspecified formulationMisty Angelique [facility] 70-71-4418jujphavyx virus vaccine, unspecified formulationMisty Angelique [facility]11-01-2009influenza virus vaccine, unspecified formulationYohannis Laura Furlong Work Phone: [phone]-UkjzsElizabeth [place] [address] DO Work Phone: influenza virus vaccine, unspecified formulationJosh Sanchez Furlong Work Phone: [phone]-Araqx [facility] 250 DO Work Phone: Comment on above: Payers DatePayer CategoryPayerPolicy [id number]-oim [id number] IndemnityMED[employer] Member Subscriber Plan / Payer (Effective 2022-Present) Name: Mike Muñiz Relation to Subscriber: Self Name: Mike Muñiz Payer ID: Not on file Type: Not on file Address: [place] [id number] 2022Unknown2021Medicare [id number] [id number] 1960 [id number]-vjx [id number] 2.840.1.676044.3.579.2.0[id number] 2.16840.1.366491.3.579.2.62431-71-7124Xubbksa5644216 2.16840.1.886204.3.579.2.14352-56-7392Eyqwkpv5376331 2.16840.1.536387.3.579.2.39675-25-4504Otvyeue4000583 2.16840.1.249122.3.579.2.11844-98-3220Azvkyuf4394939 2.16840.1.124209.3.579.2.04336-20-3913Wlxmreh9203449 2.16840.1.947374.3.579.2.25306-85-2423Igjdmhf1374133 2.16840.1.994129.3.579.2.73401-14-2830Fitklxa4123463 2.840.1.965656.3.579.2.72286-32-9778Nbcpveo3071060 2.0.1.764646.3.579.[id number] 2.840.1.989149.3.579.2.506654-65-0788Syypjij57636934 2.0.1.709384.3.579.2.32420-20-8269Scttinj46742651 2..1.971160.3.579.2.07697-77-1651Rdzdnoo33082083 2.0.1.533469.3.579.2.09830-95-7341Grwqsqv36392567 2.840.1.737489.3.579.2.72802-73-8642Fesqqog49878989 2.840.1.363395.3.57[id number] 2.840.1.410653.3.579.2.542860-58-5498Omogrof024396635 2.16.840.1.024522.3.579.2.695554-21-1558Omkhrqt50211945 2.16.840.1.531842.3.579.[id number] 2.16.840.1.644023.3.579.2.694[id number] 2.16840.1.065951.3.579.2.847787-74-9007Nblnaki97834949 2.16840.1.090309.3.579.2.84425-40-8826Zfobxit67017821 2.16840.1.617363.3.579.2.63349-36-5559Bunysmr38556795 2.16840.1.287611.3.579.2.93027-12-8951Ynnljce18500594 2.16840.1.704973.3.579.2.82911-45-2334Uqwzryb40940445 2.840.1.860615.3.579.2.71580-30-9970Dcbokgw75172374 2.16840.1.034612.3.579.2.73625-99-9149Rzeihdf45361401 2.16840.1.395143.3.579.2.46456-06-7328Zwjihtq91150877 2.160.1.887210.3.579.2.00744-37-2307Aqwklnf93888947 2.16840.1.181013.3.579.2.38516-72-7905Aqyetub40983534 2.16840.1.972980.3.579.2.25666-03-5453Ywnmkyh65211505 2.16.840.1.284550.3.579.2.28908-84-5111Kqzxzca90618090 2.16.840.1.746256.3.579.2.37875-53-4404Mryczxq99835231 2.16.840.1.461704.3.579.2.79747-20-7302Shtgqwn15342251 2.16.840.1.860549.3.579.2.39001-19-0866Xvuycka44260501 2.16.840.1.709864.3.579.2.22412-28-7128Eewduuw24887077 2.16.840.1.719017.3.579.2.29902-40-4319Greijln36705968 2.16.840.1.451805.3.579.2.71481-60-2924Zumxcqr86116842 2.16.840.1.051700.3.579.2.959Nfacbbs32124651 2.16.840.1.506928.3.579.2.531 Social History DateTypeDetailFacilityStart: 03-19-2022 End: 23-47-6091Nfkgozx useAlcohol use-[facility] 250 DO Work Phone: Comment on above:1-2 cups of coffee daily;Start: 03-19-2022 End: 55-36-6155Gug Assigned At [facility] [employer] Other Start: 04-08-2019 End: 00-14-6234Nwsozet smoking status NHISEx-smoker (finding)[facility]: 61-96-8427Xeb [facility] End: 32-99-0749Uefqejk of tobacco useCurrent smokerRiverview Health Institute Work Phone: Start: 03-19-1974 End: 82-09-2815Mbuvrym of tobacco useCigarette SmokerUnUC [facility] Hospital Work Phone: Start: 03-19-2022 End: 90-12-5084Uxstgvm use and exposureSmokeless tobacco non-userUnUC West [facility] Hospital Work Phone: Start: 06-18-2023 End: 07-51-2933Tgnnurq intakeCurrent drinker of alcohol (finding)[facility] Work Phone: Start: 10-77-2696Emx Assigned At BirthNot on file [facility] Work Phone: Start: 06-08-2023 End: 74-57-3598Fivmykay to SARS-CoV-2 (event)Not sureUnUC West Chester HospitalStart: 63-06-2174Fjingfz smoking status NHISNever smoked tobacco (finding)[facility]: 12-21-2014 End: 69-67-7120MobXxlc (finding)[facility] HospitalHas the electric, gas, oil, or water company threatened to shut off services in your home in past 12MoNoProMedica Health SystemDo you belong to any clubs or organizations such as tenriism groups, unions, fraternal or athletic groups, or school groups?YesProMedica Health SystemAre you now , , , , never or living with a partner?MarriedProMedica Health System How often to you have a drink containing alcohol?4 or more times a weekProMedica Health SystemHow many standard drinks containing alcohol do you have on a typical day?1 or 2ProMeduab hospital Health SystemHow often do you have 6 or more drinks on 1 occasion?Less than monthlyProMedica Health SystemStart: 74-39-0620Hxf hard is it for you to pay for the very basics like food, housing, medical care, and heatingNot hard at allProMedica Health SystemDo you feel stress - tense, restless, nervous, or anxious, or unable to sleep at night because yourmind is troubled all the time - these days [OSQ]Not at allProMedica Health SystemStart: 41-19-7667Ktljptz CommentOccasionalWadsworth-Rittman Hospital SystemHow hard is it for you to pay for the very basics like food, housing, medical care, and heatingNot very hardOhioHealth Doctors Hospital Medical Equipment Procedure CodeEquipment CodeEquipment Original TextEquipment IdentifierDates Accu-Chek Carley Plus test strips TEST ONCE [id number] End: 93-19-0398Mqco-Chek Fastclix Lancet Drum USE ONCE DAILY DIRECTED [id number] End: 62-81-3924Xeqk-Chek FastClix Lancing [id number] End: 60-39-1366Fnnn-Chek Carley Plus test strips TEST ONCE [id number]: 06-29-2023 End: 08-40-1441Ouyx-Chek Fastclix Lancet Drum USE ONCE DAILY DIRECTED [id number]: 06-29-2023 End: 41-27-5720Okmg-Chek Carley Plus test strips TEST ONCE [id number]: 07-03-2023 End: 01-46-2298Ppbp-Chek Fastclix Lancet Drum USE ONCE DAILY DIRECTED [id number]: 07-03-2023 End: 32-20-4263Paul-Chek FastClix Lancing [id number]: 07-03-2023 End: 70-12-6587Nzua-Chek Carley Plus test strips TEST ONCE [id number]: 07-03-2023 End: 77-42-8457Cnvt-Chek Fastclix Lancet Drum USE ONCE DAILY DIRECTED [id number]: 07-03-2023 End: 03-46-5348Vkcl-Chek Fastclix Lancet Drum USE ONCE DAILY DIRECTED [id number]: 70-80-4945Lzck-Chek FastClix Lancing [id number]: 86-78-7172Qvik-Chek Carley Plus test strips TEST ONCE [id number]: 08-04-2024 End: 78-65-8646Olxm-Chek Fastclix Lancet Drum USE ONCE DAILY DIRECTED [id number]: 26-53-3548Hasq-Chek Carley Plus test strips TEST ONCE DAILY [id number]: 10-31-2024 End: strip by other route in the morning.[id number]: 11-01-2024 Goals DatePatient GoalDesired Activity/State Clinical Notes 07-24-2021 to 12-27-2024 Note Date & KppjKfrgPapkmlzw82-82-3256 History of Present illness Narrative* Jade Sims MD - 12/27/2024 8:50 AM EDT HPI 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 with previous [employer] the right SFA 2008, currently has stable [...] exam, discussion and plan. documented in this [facility] Work Phone: 1(705) 851-540608-12-2025 Instructions* Patient Instructions* Buffy Funez LPN - 12/27/2024 [...] Follow up 9 months documented in this [facility] Work Phone: 1(539) 983-584506-30-2025 NotePatient Education Urology Cystoscopy Cystoscopy is a procedure [...] including vitamins, herbs, eye drops, creams, and pwdi-lop-zvuozmi medicines. ??? Any problems you or family [...] tells you to take them. ??? Taking iapn-hbm-gyuoqjf medicines, vitamins, herbs, and supplements. Tests You [...] cystoscope to fill your bladder. The fluid willstretch your bladder so that your health care [...] these instructions at home: Medicines ??? Take jjcl-jrq-bxvwvji and prescription medicines only as told by your health care provider. ??? If you were prescribed an antibiotic medicine, take it as told by your health care provider. Donot stop taking the antibiotic even if you [...] testing (biopsy) during your (more content not included)...[facility]06-16-2025 History of Present illness Narrative* Josh Maciel, DO - 10/31/2024 9:00 AM EDT Subjective Patient ID: Mike Muñiz is a 69 y.o. male. Mike presents for a diabetic visit. He is taking his medications. He does not have any side effects.He has no new problems to report. He [...] medication andpost discharge medication. Review of Systems Constitutional: Negative. [...] polyneuropathy, without long-term current use of insulin ([facility]) - Hemoglobin A1c; Future - blood sugar [...] and the following intervention(s) were applied: encouragement toexercise and prescribed diet education. Hyperlipidemia, unspecified hyperlipidemia type - Lipid profile; Future Check lipid panel Peripheral vascular disease He has peripheral vascular disease. Follow up with cardiology as directed. Thrombocytopenia He was getting a CBC done 4 his other labs. Will monitor his platelets. May need to see specialist documented in this encounterOhioHealth Doctors Hospital03-24-2025 Miscellaneous Notes* Telephone Encounter - Belkys Merino CMA - 08/08/2024 5:06 PM EDT Minna steel didn't get it documented in this encounterOhioHealth Doctors Hospital03-24-2025 Telephone encounter Note* Telephone Encounter - Belkys Merino CMA - 08/08/2024 5:06 PM EDT Minna steel didn't get it [facility]03-03-2025 NotePatient Education Urology Hypogonadism, Male Male hypogonadism [...] Follow these instructions at home: ??? Take umom-oyc-ywtowvz and prescription medicines only as told by your health care provider. ??? Eat foods that are high in fiber, such as beans, whole grains, and fresh fruits and vegetables.Limit foods that are high in fat and [...] sure you discuss any (more content not included)...[facility]12-16-2024 NotePatient Education Urology Hypogonadism, Male Male hypogonadism [...] Follow these instructions at home: ??? Take owap-rry-cdwhlaf and prescription medicines only as told by your health care provider. ??? Eat foods that are high in fiber, such as beans, whole grains, and fresh fruits and vegetables.Limit foods that are high in fat and [...] sure you discuss any (more content not included)...[facility]12-16-2024 History of Present illness Narrative* Josh Maciel, DO - 05/02/2024 9:30 AM EST Subjective Patient ID: Mike Muñiz is a 68 y.o. male. Right presents today for diabetic and cardiovascular recheck. He is taking his medications. He is not having any side effects. He is seeing the agricultural specialist. Does have intermittent bilateral thigh pain that happens randomly. He does not get leg pain when he does exercise. The following portions of the patient's history were reviewed and updated as appropriate: allergies, current medications, past family history, past medical history, past social history, past surgicalhistory, problem list, and medication reconciliation was completed including current medication andpost discharge medication. Review of Systems Constitutional: Negative. HENT: Negative. Respiratory: Negative. Cardiovascular: Negative. Genitourinary: Negative. Musculoskeletal: Positive for myalgias. Neurological: Negative. Psychiatric/Behavioral: Negative. Objective Physical Exam Vitals reviewed. Exam conducted with a fusing machine tender present (Jagruti Balesating MS3). Constitutional: General: He is not in [...] polyneuropathy, without long-term current use of insulin ([facility]) - Microalbumin - Albumin: Creatinine Urine Ratio; Future His A1c was very good at 6.7%. Continue current regimen. Check ACR Essential hypertension Blood pressure at goal. Continue current regimen Peripheral vascular disease ([facility]) Stable. His thigh pain does not seem [...] Q10, possibly statin induced documented in this encounterMorrow County HospitalReflexis Systems11-05-2024 Evaluation note* Diagnosis Onset Date Resolution Status Admit Date Coronary artery disease acuteNovember 2023 10:38amDiabetesacuteNovember 5th, 2024 10:38amEssential hypertensionacuteC[facility]2023 10:38amOSA (obstructive sleep apnea)acute March 22, 2024 10:38am [facility] Work Phone: 1(821) 977-466511-05-2024 History of Present illness Narrative* Jade Sims 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 with previous [employer] the right SFA 2008, currently has stable [...] exam, discussion and plan. documented in this [facility] Work Phone: 1(742) 463-434011-05-2024 Instructions* Patient Instructions* Buffy Funez LPN - [...] Lab work Follow up documented in this encounterRiverview Health Institute Work Phone: 1(527) 251-687910-14-2024 Miscellaneous Notes* Telephone Encounter - Kelly Brandt - 02/29/2024 11:37 AM EDT PATIENT IS COMING IN 05/02 AND WOULD LIKE LABS [facility]ENT [facility] PLEASE AND THANKK YOU documented in this encounterOhioHealth Doctors Hospital10-14-2024 Telephone encounter Note* Telephone Encounter - Kelly Brandt - 02/29/2024 11:37 AM EDT PATIENT IS COMING IN 05/02 AND WOULD LIKE LABS SENT TO [facility] PLEASE AND THANKK YOU [facility]08-12-2024 NotePatient Education Urology Hypogonadism, Male Male hypogonadism [...] Follow these instructions at home: ? Take dwni-pad-jdfngjw and prescription medicines only as told by [...] care provider. Document Revised: (more content not included)...[facility] 07-02-2023 Miscellaneous Notes* Telephone Encounter - Kenzie Richards CMA - 07/02/2023 4:40 PM EST Pt called and needs all GULOSE TESTING supplies sent to [facility] due to medicare only covering them from there. documented in this encounterOhioHealth Doctors Hospital02-15-2024 Telephone encounter Note* Telephone Encounter - Kenzie Richards CMA - 07/02/2023 4:40 PM EST Pt called and needs all GULOSE TESTING supplies sent to [facility] due to medicare only covering them from there. [facility] [place] Yjljxp28-95-8600 Miscellaneous Notes* Telephone Encounter - Belkys Merino [...] what was going on documented in this encounterOhioHealth Doctors Hospital02-14-2024 Telephone encounter Note* Telephone Encounter - Belkys Merino CMA - 07/01/2023 1:20 PM EST Pt called yaritza cedeno called him stated his insurance is not covering his lancets or strips there wanted to know if you could point him in the right direction as he is not sure [facility] [place] Xpnufs60-17-8340 Telephone encounter Note* Telephone Encounter - Josh Maciel DO - 07/01/2023 1:20 PM EST It sounds like a formulary issue. They should cover some type of glucometer and test strips. Have him check his formulary and see which brand is covered and then let us know. [employer]02-14-2024 Telephone encounter Note* Telephone Encounter - Belkys Merino CMA - 07/01/2023 1:20 PM EST He did say when he got home he was going to call his insurance and see what was going on [employer]02-08-2024 History of Present illness Narrative* Josh Maciel DO - 06/25/2023 10:00 AM EST Subjective Patient ID: Mike Muñiz is a 67 y.o. male. Mike presents today to discuss several issues regarding his medications. He had labs done ordered bythe agricultural specialist at another facility and is here to [...] April 08, [address] Adames in [place] and it was normal. He has been getting pain in his thighs lately. His agricultural specialist told him it was probably his circulation [...] polyneuropathy, without long-term current use of insulin ([facility]) We discussed his medications. He [...] is aware of that. Peripheral vascular disease (CMS-HCC) Follow-up with cardiology as directed. Controlling risk factors are important. His lipids and CMP were essentially at goal. documented in this encounterMorrow [facility] HospitalAdB[facility] Network [facility] [id number] History of Present illness Narrative* Jade Sims 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 with previous [employer] the right SFA 2008, currently has stable [...] which came back normal Jade Sims MD, [facility] Review of Systems All other systems reviewed [...] of Jade Sims MD. [facility] Work Phone: 1(855) 633-716402-01-2024 Instructions* Patient Instructions* Willian Sumner MA - [...] time of your visit. documented in [facility] Work Phone: 1(124) 806-905911-10-2022 Evaluation note* Encounter Date Diagnosis Assessment Notes Treatment Notes Treatment Clinical Notes Mar, Obstructive sleep apnea (ICD-10 - G47.33) Fortunately the patient is using and benefiting from treatment. He is using treatment regularly anddoes feel it is effective for him. He [...] the availability of inspire therapy but is notinterested in pursuing this option at this time Mar,MI 29.0-29.9,adult (ICD-10 - Z68.29)Weight reduction is broadly beneficial but can have significant positive effects on sleep apnea severity Mar,Essential hypertension (ICD-10 - I10)Blood pressure control frequently improves after control of obstructive sleep apnea, which emphasizes the importance of keeping good control of ROCK Mar,therCall if any questions or problems. Patient is advised to work on healthy diet choices and appropriate servings, weight control, regular exercise as directed, and reduce fat intake. Use machine regularly, and keep up with mask changes as needed. Call if problems with mask toleration, increased sleepiness, or poor response to treatment. . [employer] Other 03-09-2022 NotePROCEDURE: XR KNEE RT 4V [...] Date: 2021-07-24 17:01[facility]ronEvaluation noteNo assessment information availableCleveland Clinic [facility] Work Phone: Evaluation note* Diagnosis ASCVD (arteriosclerotic cardiovascular disease)- Primary Unspecified cardiovascular disease Peripheral vascular disease (CMS/HCC) Unspecified peripheral vascular disease Essential hypertension Unspecified essential hypertension Hyperlipidemia, unspecified hyperlipidemia type Other specified diabetes mellitus without complication, without long-term current use of insulin (CMS/HCC) Former smoker Personal history of tobacco use, presenting hazards to health Overweight documented in this encounter [facility] Work Phone: Evaluation note* Diagnosis ASCVD (arteriosclerotic cardiovascular disease)- Primary Unspecified cardiovascular disease Peripheral vascular disease ([facility]) Unspecified peripheral vascular disease Essential hypertension Unspecified [...] stated as uncontrolled documented in this encounter [facility] Work Phone: Evaluation note* Diagnosis Type 2 diabetes mellitus with diabetic polyneuropathy, without long-term current use of insulin ([facility])- Primary Normocytic normochromic anemia Unspecified anemia Peripheral vascular disease ([facility]) Unspecified peripheral vascular disease Thrombocytopenia ([facility]) Unspecified thrombocytopenia [facility] encounter [facility] Diagnosis Type 2 diabetes mellitus with diabetic polyneuropathy, without long-term current use of insulin ([facility])- Primary documented in this encounter [facility]* Diagnosis Type 2 diabetes mellitus with diabetic polyneuropathy, without long-term current use of insulin ([facility])- Primary documented in this encounter [facility]* Diagnosis Normocytic normochromic anemia- Primary Unspecified anemia Type 2 diabetes mellitus with diabetic polyneuropathy, without long-term current use of insulin ([facility]) Essential hypertension Unspecified essential hypertension documented in this encounter [facility]* Diagnosis Type 2 diabetes mellitus with diabetic polyneuropathy, without long-term current use of insulin ([facility])- Primary Essential hypertension Unspecified essential hypertension Peripheral vascular disease ([facility]) Unspecified peripheral vascular disease ASCVD (arteriosclerotic cardiovascular disease) Unspecified cardiovascular disease Class 1 obesity due to excess calories with serious comorbidity and body mass index (BMI) of 30.0 to 30.9 in adult Myalgia Unspecified myalgia and myositis documented in this encounter [facility]* Diagnosis Type 2 diabetes mellitus with diabetic polyneuropathy, without long-term current use of insulin ([facility]) documented in this encounter [facility]* Diagnosis Type 2 diabetes mellitus with diabetic polyneuropathy, without long-term current use of insulin ([facility])- Primary Essential hypertension Unspecified essential hypertension Class 1 obesity due to excess calories with serious comorbidity and body mass index (BMI) of 30.0 to 30.9 in adult Hyperlipidemia, unspecified hyperlipidemia type Peripheral vascular disease Unspecified peripheral vascular disease Thrombocytopenia Unspecified thrombocytopenia documented in this encounter [facility]* Diagnosis Type 2 diabetes mellitus with diabetic polyneuropathy, without long-term current use of insulin ([facility])- Primary documented in this encounter [facility]* Diagnosis ASCVD (arteriosclerotic cardiovascular disease)- [...] peripheral vascular disease documented in this encounter [facility] Work Phone: History general Narrative - Reported* Type Description Date Medical History ROCK (obstructive sleep apnea) Medical HistoryCAD in [place] arterySurgical Historyheart stentSurgical History left hip replacement [employer] Other InstructionsNot on filedocumented in this encounter [...] Health SystemInstructionsNot on filedocumented in this encounter [facility] SystemInstructionsNot on filedocumented in this encounter [facility] SystemInstructionsNot on filedocumented in this encounter [facility] SystemReason for referral (narrative)* Consultation (Routine) - AuthorizedSpecialtyDiagnoses / ProceduresReferred By ContactReferred To ContactCardiology Diagnoses ASCVD (arteriosclerotic cardiovascular disease) Peripheral vascular disease (CMS/HCC) Essential hypertension Hyperlipidemia, unspecified hyperlipidemia type Other specified diabetes mellitus without complication, without long-term current use of insulin (CMS/HCC) Procedures Follow Up In Cardiology Jade Sims MD [address] [place] [address] 2, [address] [address] Jade Sims MD [address] [place] [address] 2, [place] [address] [place] [id number] Referral IDStatusReasonStart DateExpiration DateVisits RequestedVisits [id number]/ [facility] Work Phone: Summary Purpose Family History No Family History Records FoundUnknown Family Member Name Dates Details Family history of acute myoc ardial infarction: Uncle(V17.3, Z82.49) Status:ActiveFH: colon cancer: Brother, Uncle(V16.0, Z80.0) Status:ActiveEssential hypertension, benign: Brother, Uncle Status:ActiveFamily history of cardiac disorder: Brother(V17.49, Z82.49) Status:Active Unknown Family Member Name Dates Details Family history of acute myoc ardial infarction: Uncle(V17.3, Z82.49) Status:ActiveFH: colon cancer: Brother, Uncle(V16.0, Z80.0) Status:ActiveEssential hypertension, benign: Brother, Uncle Status:ActiveFamily history of cardiac disorder: Brother(V17.49, Z82.49) Status:Active Relationship Condition Age at Onset Recorded Date/T javier brother Malignant neoplasm of colon Unknown family memberMalignant neoplasm of colonUnknownfatherMalignant neoplasm of lung UnknownsisterMalignant neoplasm of breastUnknownUnknown Family Member Name Dates Details Family history of acute myoc ardial infarction: Uncle(V17.3, Z82.49) Status:ActiveFH: colon cancer: Brother, Uncle(V16.0, Z80.0) Status:ActiveEssential hypertension, benign: Brother, Uncle Status:ActiveFamily history of cardiac disorder: Brother(V17.49, Z82.49) Status:Active Unknown Family Member Name Dates Details Family history of acute myoc ardial infarction: Uncle(V17.3, Z82.49) Status:ActiveFH: colon cancer: Brother, Uncle(V16.0, Z80.0) Status:ActiveEssential hypertension, benign: Brother, Uncle Status:ActiveFamily history of cardiac disorder: Brother(V17.49, Z82.49) Status:Active Advance Directives No Advanced [...] with tobacco use. He has had previous [employer] of the femoral arteries in the past. 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 with previous [employer] the right SFA 2008, currently has stable [...] which is scheduled * Jade Sims MD, [facility] Additional Source Comments (unrecognized sect ion and content) No Status Records FoundNo Status Records FoundNo Status Records FoundNo Status Records FoundNo Status Records FoundNo Status Records FoundNo Status Records FoundNo Status Records FoundNo Status Records FoundNo Status Records FoundNo Status Records Found INFORMATION SOURCE (unrecogn ized section and content) DATE CREATED AUTHOR 11/06/2017 [facility] DATE CREATED AUTHOR AUTHOR'S ORGANIZ ATION 02/16/2022 [facility] DATE CREATED AUTHOR AUTHOR'S ORGANIZ ATION 02/16/2022 [employer] DATE CREATED AUTHOR AUTHOR'S ORGANIZ ATION 05/08/2022 [facility] DATE CREATED AUTHOR AUTHOR'S ORGANIZ ATION 01/07/2023 [facility] DATE CREATED AUTHOR AUTHOR'S ORGANIZ ATION 05/04/2024 [facility] DATE CREATED AUTHOR AUTHOR'S ORGANIZ ATION 05/05/2024 [facility] DATE CREATED AUTHOR AUTHOR'S ORGANIZ ATION 05/19/2024 [facility] DATE CREATED AUTHOR AUTHOR'S ORGANIZ ATION 11/01/2024 [facility] DATE CREATED AUTHOR AUTHOR'S ORGANIZ ATION 12/28/2024 [facility] DATE CREATED AUTHOR AUTHOR'S ORGANIZ ATION 03/30/2025 [facility] Care Teams (unrecognized sec tion and content) Team Status: Active Member Role Status Dates Josh Maciel DO Primary Care Provider Active Team Status: Inactive Member Role Status Dates Josh Maciel DO Primary Care Provider Active Start: March 22, 2024 End: March 22egtaty Pollack NPAttria ProviderActiveStart: March 22, 2024 End: March 22, 2024 Team Status: Inactive Member Role Status Dates Josh Maciel DO Primary Care Provider Active Patel Fan ProviderActiveTeam MemberRelationshipSpecialty Start DateEnd Date Josh Maciel [address] [facility] [facility], [place] [address] PCP - General05/18/99Team MemberRelationshipSpecialtyStart DateEnd Date Josh Maciel DO PCP - General05/18/99 Team Status: Inactive Member Role Status Dates Josh Maciel DO Primary Care Provider Active Start: May 04, 2024 End: May 04, 2024Patel Manzo ProviderActiveStart: May 04, 2024 End: May 04, 2024 Team Status: Active Member Role Status Dates Josh Maciel DO Primary Care Provider Active Start: May 04, 2024 ImPatel Lira Provider, Other ProviderActiveStart: May 04, 2024 Team Status: Active Member Role Status Dates Josh Maciel DO Primary Care Provider Active Start: May 04, 2024 Jaymie Evans CMAAttending ProviderActiveStart: May 04, 2024 Team Status: Inactive Member Role Status Dates Josh Maciel DO Primary Care Provider Active Start: June 09, 2024 End: June 09, 2024Petoshadylon Pollack SORENAttending ProviderActiveStart: June 09, 2024 End: June 09, 2024Team MemberRelationshipSpecialtyStart DateEnd Date Josh Maciel DO [address], [place] [address] PCP - [facility]03/19/22Team MemberRelationshipSpecialtyStart DateEnd Date Josh Maciel DO [address], [place] [address] PCP - [facility]03/19/22Team MemberRelationshipSpecialtyStart DateEnd Date Josh Maciel DO [address], [place] [address] PCP - [facility]03/19/22Team MemberRelationshipSpecialtyStart DateEnd Date Josh Maciel DO [address], [place] [address] PCP - [facility]03/19/22Team MemberRelationshipSpecialtyStart DateEnd Date Josh Maciel DO [address], [place] [address] PCP - [facility]03/19/22Team MemberRelationshipSpecialtyStart DateEnd Date Josh Maciel DO [address], [place] [address] PCP - [facility]03/19/22Team MemberRelationshipSpecialtyStart DateEnd Date Josh Maciel DO [address], [place] [address] PCP - [facility]03/19/22Team MemberRelationshipSpecialtyStart DateEnd Date LarajennyJosh DO [address], [place] [address] PCP - [facility]03/19/22Team MemberRelationshipSpecialtyStart DateEnd Date LaramarcoJosh escobedo [address] [place] [address] PCP - [facility]03/19/22Team MemberRelationshipSpecialtyStart DateEnd Date LaramarcoJosh escobedo DO [address] [place] [address] PCP - [facility]03/19/22Team MemberRelationshipSpecialtyStart DateEnd Date JanellJosh [address] [place] [address] PCP - [facility]03/19/22Team MemberRelationshipSpecialtyStart DateEnd Date LarajennyYohanJosh LauraDO [address] [place] [address] PCP - [facility] Xgavqvpz09/2/22Team MemberRelationshipSpecialtyStart DateEnd Date LaramarcoYohan escobedonis Laura [address], [place] [address] PCP - [facility]03/19/22Te MemberRelationshipSpecialtyStart DateEnd Date JanellJosh LauraDO [address], [place] [address] PCP - [facility]03/19/22Te MemberRelationshipSpecialtyStart DateEnd Date JanellJosh DO PCP - General05/18/99 Goals (unrecognized section and content) Goals may be documented in a n alternate section Reason for Visit (unrecogniz ed section and content) ReasonCommentsFollow-up9 month ASCVD (arteriosclerotic cardiovascular disease) SpecialtyDiagnoses / ProceduresReferred By ContactReferred To ContactCardiology Diagnoses ASCVD (arteriosclerotic cardiovascular disease) Procedures Follow Up In Cardiology Jade Sims MD [address] [address], [address] [address] Phone: tel: fax: Jade Sims MD [address] [facility] 2, [address] [address] Phone: tel: fax: Referral IDStatusReasonStart DateExpiration DateVisits RequestedVisits [id number] DateCommentsMed Nfagbu9608/08/2024ReasonOnset DateCommentsMed Jzsdqs4607/11/2024ReasonComments Cuypcszc925 in the amReasonCommentsMed RefillReasonOnset DateCommentsMed Refill 4ReasonOnset DateCommentsMed [id number] DateComments Med [id number] medicationReasonOnset DateCommentsMed [id number]-up9 monthsSpecialtyDiagnoses / Procedures Referred By ContactReferred To ContactCardiology Diagnoses ASCVD (arteriosclerotic cardiovascular disease) Peripheral vascular disease ([facility]) Essential hypertension Hyperlipidemia, unspecified hyperlipidemia type Other specified diabetes mellitus without complication, without long-term current use of insulin Procedures Follow Up In Cardiology Jade Sims MD [address] [place] [address] Phone: tel: fax: Jade Sims MD [address] [place] [address], [place] [address] Phone: tel: fax: Referral IDStatusReasonStart DateExpiration DateVisits RequestedVisits [id number] month FOR RECORDS PERTAINING TO PATIENTS WHO [...] BE BASED ON THE PRIMARY CLINICAL RECORDS. [facility] [employer] [facility]. provides no warranty or guarantee of the accuracy or completeness of information in this document.
--- OUTSIDE RECORDS SUMMARY | 2025-04-15 08:12 | XMS_ITS | Clinical Summary ---
Author Organization [employer] tem Address [id number] [place] [address] Care Team Providers Care Calibration Tester Name Role Phone Josh Ospina Primary Care Provider [phone] Allergies Active AllergyReactionsCriticalityNoted WhevXviedzutUgifeugmmi88/02/2022 Medications MedicationSigDispense QuantityRefillsLast FilledStart DateEnd DateStatus verapamil SR (CALAN-SR) 240 mg CR tablet Take 1 tablet (240 mg total) by mouth in the morning.02/20/2022ctive tamsulosin (FLOMAX) 0.4 mg capsule Active ramipriL (ALTACE) 10 mg capsule Take 1 capsule (10 mg total) by mouth in the morning.02/22/2022ctive nitroglycerin (NITROSTAT) 0.4 MG SL tablet Active hydrOXYchloroQUINE (PLAQUENIL) 200 mg tablet Take 1 tablet (200 mg total) by mouth in the morning and 1 tablet (200 mg total) before bedtime.03/01/2022ctive fluticasone propionate (FLONASE) 50 mcg/actuation nasal spray Active clopidogreL (PLAVIX) 75 mg tablet Take 1 tablet (75 mg total) by mouth in the morning.03/07/2022ctive rosuvastatin (CRESTOR) 10 mg tablet rosuvastatin 10 mg tablet take 1 tablet by mouth at vimrjxx1405/04/2023ctive SITagliptin phosphate (JANUVIA) 100 mg tablet take 1 tablet by mouth once daily 90 tablet ctive testosterone cypionate (DEPOTESTOTERONE CYPIONATE) 200 mg/mL injection Active meloxicam (MOBIC) 7.5 mg tablet Take 1 tablet (7.5 mg total) by mouth in the morning.4Active lancing device with lancets (ACCU-CHEK FASTCLIX LANCING DEV) kit Indications:Type 2 diabetes mellitus with diabetic polyneuropathy, without long- term current use of insulin [place] [place]Accu-Chek FastClix Lancing Device 1 each 5Active lancets (ACCU-CHEK FASTCLIX LANCET DRUM) [facility] [place]ications:Type 2 diabetes mellitus with diabetic polyneuropathy, without long- term current use of insulin ([facility] [place]Accu-Chek Fastclix Lancet Drum USE ONCE DAILY DIRECTED 100 each 5Active lancets (ACCU-CHEK FASTCLIX LANCET DRUM) [facility] [place] Accu-Chek Fastclix Lancet Drum USE ONCE DAILY DIRECTED 100 each 5Active Additional Information Patient not taking.Reported on 10/31/2024 dutasteride (AVODART) 0.5 mg capsule Take 1 capsule (0.5 mg total) by mouth.5Active blood sugar diagnostic (glucose blood) strip Indications:Type 2 diabetes mellitus with diabetic polyneuropathy, without long- term current use of insulin ([facility] [place])1 strip by other route in the morning. 100 strip 5Active blood-glucose meter [facility] [place]ications:Type 2 diabetes mellitus with diabetic polyneuropathy, without long- term current use of insulin ([facility] [place])Use daily as directed 1 each 5Active FARXIGA 10 mg tablet TAKE 1 TABLET BY MOUTH IN THE MORNING 30 tablet 505Active metFORMIN (GLUCOPHAGE) 500 mg tablet TAKE 2 TABLETS BY MOUTH IN THE MORNING then TAKE 2 TABLETS BY MOUTH IN THE EVENING; take WITH MEALS 360 tablet 5Active Active Problems ProblemNoted DateDiagnosed WqwzSbmjskrrdkzfomfm77/08/2024Normocytic normochromic ulknta6906/19/20235973Zubhvhzyc69/02/2022Rotator cuff syndrome of right shoulder 03/19/2022SCVD (arteriosclerotic cardiovascular disease)2Decreased testosterone level11/02/2022Diabetic utvrjkiapl81/02/2022Essential hypertension 03/19/20223560Jcrkorairqnkjk57/02/2022Impingement syndrome of shoulder region 03/19/20227229Vbsuajm87/02/2022bstructive sleep apnea ujaxjxhl53/02/2022eripheral vascular rlqsmxb9103/19/2022Tubular nlgfofn0303/19/2022Type 2 diabetes mellitus 03/19/20224435Odqugtsznyru29/22/2018Benign prostatic hyperplasia with urinary nzhvwtvtdap37/16/2017Radial styloid otdfzenopwkvn17/27/2017 Resolved Problems ProblemNoted DateDiagnosed DateResolved DateIntermittent wjpgbaspusgl28/02/2022 05/04/2023 Encounters DateTypeDepartmentCare PrjjMfmwdzrlhag24/22/2025Refill [facility] [address] [place] [address] Josh Ospina, from Last 3 Months Immunizations ImmunizationAdministration DatesNext DueCOVID-19, mRNA, LNP-S, PF, 100mcg/0.5mL Dose07/18/2020OVID-19, mRNA, LNP-S, PF, 30mcg/0.3mL Dose07/18/2020,07/16/2020 Influenza, High-dose, Jfjpaldddara92/06/2024,02/05/2023Influenza, Im Trivalent Tdwiliwuijqb75/01/2020,03/18/2019,03/18/2015Influenza, Injectable, Mdck, Preservative Free, Quad04/13/2018Influenza, Injectable, Wvwaxwqaencp37/16/2019 Influenza, Injectable, quadrivalent (PF)02/16/2020,04/20/2017,03/31/2017 Influenza, Xsynarwqbve81/09/2017,02/16/2016,07/18/2013,05/18/2011,03/18/2011, 05/18/2009,03/18/2009Pneumococcal Conjugate 13-Ranmvl7404/14/2022,07/04/2014 Pneumococcal Tqkgtvbhzfzard20/22/3031Rrfe08/17/2015Zoster Vaccine Recombinant 06/29/2019,04/28/2019 Family History Medical HistoryRelationNameCommentsColon cancerBrotherHypertensionFatherLung cancerFatherDied at age 55Heart attackMaternal GrandfatherColon cancerMaternal UncleHeart attackMaternal UncleAneurysmMotherDementiaMotherDied at age 93 DiabetesSister 1RelationNameStatusCommentsBrotherAliveFatherDeceasedMaternal GrandfatherMaternal UncleMotherDeceasedSister 1AliveSister 2Alive Social History Tobacco UseTypesPacks/DayYears UsedDateSmoking Tobacco: CzteilPyplqjjqdt999.1 03/19/1974 - 05/09/1996Smokeless Tobacco: NeverAlcohol UseStandard Drinks/Week CommentsYes0 (1 standard drink = 0.6 oz pure alcohol)OccasionalBluFrog Path [facility] Solutions Utilities AnswerDate RecordedIn the past 12 months has the electric, gas, oil, or water company threatened to shut off services in your home?No05/04/2023Social Connection and Isolation PanelAnswerDate RecordedIn a typical week, how many times do you talk on the phone with family, friends, or neighbors?More than three times a week03/19/2022How often do you get together with friends or relatives?More than three times a week03/19/2022How often do you attend hoahaoism or islam services?More than 4 times per year2Do you belong to any clubs or organizations such as hoahaoism groups, unions, fraternal or athletic amarjit ups, or school groups?Yes03/19/2022How often do you attend meetings of the clubs or organizations you belong to?More than 4 times per year03/19/2022re you , , , , never , or living with a partner? Zkzasjb6503/19/2022UDIT-CAnswerDate RecordedQ1: How often do you have a drink containing alcohol?4 or more times a week03/19/2022Q2: How many drinks containing alcohol do you have on a typical day when you are drinking?1 or 2 03/19/2022Q3: How often do you have six or more drinks on one occasion?Less than nlgfyhu14/02/2022Overall Financial Resource Strain (CARDIA)AnswerDate Recorded How hard is it for you to pay for the very basics like food, housing, medical care, and heating?Not very hard06/25/2023HQ-2AnswerDate RecordedTotal Score0 10/31/2024[facility] [place] [facility] Occup[facility] - Occupational Stress QuestionnaireAnswerDate RecordedDo you feel stress - tense, restless, nervous, or anxious, or unable to sleep at night because yourmind is troubled all the time - these days?Not at all03/19/2022Exercise Vital SignAnswerDate RecordedOn average, how many days per week do you engage in moderate to strenuous exercise (like a brisk walk)?6 days10/31/2024On average, how many minutes do you engage in exercise at this level?20 min10/31/2024PRAPARE - TransportationAnswerDate RecordedIn the past 12 months, has lack of transportation kept you from medical appointments or from getting medications?No03/19/2022In the past 12 months, has lack of transportation kept you from meetings, work, or from getting things needed for daily living?No03/19/2022Housing InstabilityAnswerDate RecordedAre you worried or concerned that in the next two months you may not have stable housing that you own, rent or stay in as a part of a household?No06/25/2023 ChildcareAnswerDate RecordedDo problems getting child welfare caseworker make it difficult for you to work or study?No03/19/2022EmploymentAnswerDate RecordedDo you need help finding a local career center and/or a training program?No03/19/2022Hunger ScreeningAnswerDate RecordedWithin the past 12 months we worried whether our food would run out before we got money to buy more.Never True10/31/2024Within the past 12 months the food we bought just didn't last and we didn't have money to get more.Never True10/31/2024Purpose - LifeAnswerDate RecordedI have a purpose and direction in my life.Strongly Agree03/19/2022ex and Gender InformationValueDate RecordedSex Assigned at BirthNot on fileLegal SexMale 12/21/2014 11:56 AM EDTGender IdentityNot on fileSexual OrientationNot on file Last Filed Vital Signs Vital SignReadingTime TakenCommentsBlood Zxfwvnje720/52010/31/2024 9:00 AM EDT Kuced359310/31/2024 9:00 AM ZTOPsuhgtusytx88.7 ??C (98 ??F)10/31/2024 9:00 AM EDT Respiratory Fvoo229810/31/2024 9:00 AM EDTOxygen Lzyzehtqqo43%10/31/2024 9:00 AM EDTInhaled Oxygen Concentration--Cjytei121.7 kg (233 lb)10/31/2024 9:00 AM EDT Hfnekj811.4 cm (6' 0.99 )10/31/2024 9:00 AM EDTBody Mass Index30.75010/31/2024 9:00 AM EDT Plan of Treatment DateTypeDepartmentCare Team (Latest Contact Info)Dhyrwqugmrj94/17/2025 9:30 AM ESTOffice Visit [facility] [address] [place] [address] Josh Ospina, DO [address], [place] [address] Health MaintenanceDue DateLast DoneCommentsStatin Use: Bwwjgpunnvdjxf36/04/1956 Statin Use: Zppmtlke83/04/1956Medicare Annual Wellness Visit/07/2022 Diabetic Foot Exam, 3DTaP,Tdap and Td Vaccines (2 - Td or Tdap)COVID-19 Vaccine ( season)2025 08/05/2020, 07/18/2020, 07/18/2020, Additional history existsInfluenza Vaccine /10/2023, 03/16/2024, 02/05/2023, Additional history existsDiabetic Ophthalmology Exam/, 05/13/2022dult BMI Follow Up Plan /dult BMI Gqwgvcbok07Depression Screening Fall Risk Acmbthzzn13Tobacco Screening olon Cancer Screening 5 Year Drahoehumtsur81/22/2029 Postponed from 10/19/2000 (Not Indicated)RSV ( or age 60+ yrs) (1 - 1- dose 75+ series)10/19/2030Zoster (Shingles) HmlwqtaXehmdulvr10/12/2020, 04/28/2019Abdominal Aortic Aneurysm (AAA) DyudsmSwwlmfeet63/21/2023 Medical Devices Not on file Procedures Procedure NamePriorityDate/TimeAssociated DiagnosisComments DIABETES EYE EXAM Dvxlwjf1304/01/2024 3:15 PM ESTUS, [employer], IHZBlxyael39/21/2023 12:25 PM EDTfrom Last 3 Months or Most Recently Relevant to Health Maintenance Results * DIABETES EYE EXAM (04/01/2024 3:15 PM EST) Narrative Authorizing ProviderResult TypeResult StatusNot In System Ref ProvHEALTH MAINTENANCEFinal ResultPerforming OrganizationAddressCity/State/ZIP CodePhone Number MANUALLY TRANSCRIBED RESULTS * , [employer] (01/05/2023 12:25 PM EDT) Narrative Authorizing ProviderResult TypeResult StatusScanning Provider External PROCEDURE/MINOR SURGICAL ORDERABLESFinal ResultPerforming OrganizationAddress City/State/ZIP CodePhone Number MANUALLY TRANSCRIBED RESULTS from Last 3 Months or Most Recently Relevant to Health Maintenance Insurance Care Teams Team MemberRelationshipSpecialtyStart DateEnd Date Josh Ospina DO [address], [place] [address] [facility] Xdsexwfa73/[facility]/22
--- OUTSIDE RECORDS SUMMARY | 2025-04-15 08:12 | XMS_ITS | Clinical Summary ---
Author Organization [facility] Healthcare Address [address] [place] [address] Care Team Providers Care Furniture Fabricator Name Role Phone Unavailable Primary Care Provider Unavailabl e Social History Tobacco UseTypesPacks/DayYears UsedDateSmoking Tobacco: Never AssessedSex and Gender InformationValueDate RecordedSex Assigned at BirthNot on fileLegal Sex Male07/30/2022 6:54 PM EDTGender IdentityNot on fileSexual OrientationNot on file Last Filed Vital Signs Vital SignReadingTime TakenCommentsBlood Xexthqol296/5111 12:00 PM EST Pulse--Temperature--Respiratory Rate--Oxygen Saturation--Inhaled Oxygen Concentration--Ettetf399 kg (224 lb)11/04/2021 12:00 PM DNODjdiru026.3 cm (5' 11 )11/04/2021 12:00 PM EDTBody Mass Index31.24011/04/2021 12:00 PM EDT Plan of Treatment Not on file Insurance
--- OUTSIDE RECORDS SUMMARY | 2025-04-15 08:12 | XMS_ITS | Clinical Summary ---
Author Organization [facility] Address [address], [address] [place] [address] Care Team Providers Care Office Machine Servicer Apprentice Name Role Phone Josh Ospina DO Primary Care Provider + [phone] Social History Tobacco UseTypesPacks/DayYears UsedDateSmoking Tobacco: Never AssessedSex and Gender InformationValueDate RecordedSex Assigned at BirthNot on fileLegal Sex Male06/24/2017 12:59 PM ESTGender IdentityNot on fileSexual OrientationNot on file Plan of Treatment Not on file Insurance Care Teams Team MemberRelationshipSpecialtyStart DateEnd Date Josh Ospina DO PCP - General06/30/17
== END 2025-04-15 08:07 | disposition home or self-care (01) ==
LOC: LAB 08:08
PROVIDERS: PCP Family Medicine; Visit Provider Urology
DX: E29.1 Testicular hypofunction (principal)
CPT/HCPCS: 36415; 84403